=== PATIENT | female | born 1945 | race Caucasian/White ===

== ENCOUNTER 2022-10-16 13:06 | Emergency (ER) | payer MEDICARE, OTHER, SELFPAY ==
[2022-10-16 13:15] VITALS: BP 142/71; PULSE 68; RESP 18; TEMP 36.1; O2SAT 95; BMI 33.6
[2022-10-16 13:46] LABS: Basophils Absolute Auto 0.1 10^3/uL (0.0-0.1); Basophils Percent Auto 0.8 % (0.2-2.0); Eosinophils Absolute Auto 0.1 10^3/uL (0.0-0.7); Eosinophils Percent Auto 1.6 % (0.9-7.0); Hematocrit 36.1 % (36.0-48.0); Hemoglobin 11.6 g/dL (12.0-16.0); Immature Granulocytes Abs Auto 0.01 10^3/uL (0.00-0.03); Immature Granulocytes Pct Auto 0.2 % (0.0-0.5); Lymphocytes Percent Auto 15.8 % (20.5-60.0); Mean Corpuscular HGB Conc 32.1 g/dL (29.9-35.2); Mean Corpuscular Hemoglobin 29.7 pg (26.7-34.0); Mean Corpuscular Volume 92.3 fL (81.0-99.0); Monocytes Absolute Auto 0.4 10^3/uL (0.3-0.8); Monocytes Percent Auto 7.2 % (1.7-12.0); Neutrophils Absolute Auto 4.5 10^3/uL (1.4-6.5); Neutrophils Percent Auto 74.4 % (43.0-75.0); Platelet Count 233 10^3/uL (150-450); Red Blood Count 3.91 10^6/uL (4.20-5.40); Red Cell Distribution Width 13.8 % (11.0-15.0); White Blood Count 6.1 10^3/uL (4.0-11.0)
[2022-10-16 14:02] LABS: Alanine Aminotransferase 21 U/L (14-59); Albumin Globulin Ratio 0.8; Albumin Level 3.1 g/dL (3.4-5.0); Alkaline Phosphatase 137 U/L (46-116); Anion Gap 10.8; Aspartate Amino Transferase 27 U/L (15-37); BUN Creatinine Ratio 25.4; Bilirubin Total 0.3 mg/dL (0.2-1.0); Calcium 9.6 mg/dL (8.5-10.1); Carbon Dioxide 30.3 mmol/L (21.0-32.0); Chloride 103 mmol/L (98-107); Estimated GFR (African America 45 (>=60); Estimated GFR (Non-African Ame 37 (>=60); Glucose 171 mg/dL (74-106); Potassium 4.1 mmol/L (3.5-5.1); Sodium 140 mmol/L (136-145); Total Protein 7.1 g/dL (6.4-8.2)
--- NOTE | 2022-10-16 14:25 | ED.GENADUL1 ---
HPI - General Adult General Chief complaint: Skin/Abscess/Foreign Body Stated complaint: LOWER EXTREMITY WOUND LEFT LEG BLEEDING Time Seen by Provider: 10/16/22 13:21 Source: patient Mode of arrival: Wheelchair Limitations: no limitations History of Present Illness HPI narrative: The patient was sent to us by her primary care doctor after she was noted to have a bleeding wound after she had a recent debridement of her left leg abscess ,The patient's INR was 2.5 in the office of her primary care doctor and she was sent over for evaluation they applied dressing and she was not complaining of any pains she did not even know she had bleeding The patient right now have no complaints and the bleeding was controlled Related Data Home Medications Medication Instructions Recorded Confirmed warfarin 4 mg tablet 4 mg PO DAILY 10/16/22 10/16/22 Allergies Allergy/AdvReac Type Severity Reaction Status Date / Time No Known Drug Allergies Allergy Verified 10/16/22 13:19 Review of Systems ROS Status of ROS 10 or more systems reviewed and unremarkable except as noted in history and below Exam Narrative Exam Narrative: Nurses notes and vital signs reviewed and patient is not hypoxic. General: Well-appearing and in no apparent distress. Skin: Warm, dry, no pallor noted. No rash. Head: Normocephalic, atraumatic. Neck: Supple, non-tender. Eye: Pupils are equal, round and EOMI. No scleral icterus. Ears, Nose, Mouth, and Throat: TM are clear, no nasal mucosal hypertrophy. Oral mucosa is moist, no posterior oropharynx erythema, uvula is mid-line Cardiovascular: Regular Rate and Rhythm without murmur, gallop or rub. Respiratory: No accessory muscle use or respiratory distress. Lungs are clear to auscultation, no wheezing, rales or rhonchi Chest Wall: no tenderness Back: No midline thoracic or lumbar vertebral tenderness. No CVA tenderness Musculoskeletal: normal ROM, no calf or popliteal tenderness, left lower extremity ulcer , the bleeding controled GI: Abdomen is soft, non-distended. Normal bowel sounds. No masses appreciated. No tenderness to palpation. No rebound, guarding, or rigidity noted. Neurological: A&O x4. No cranial nerve dysfunction observed. No truncal ataxia. Moves all extremities. Sensation intact. Psychiatric: Cooperative and interactive. Normal mood and affect. Constitutional Vital Signs, click to edit/add: Last Vital Signs Temp 97 F L 10/16/22 13:15 Pulse 68 10/16/22 13:15 Resp 18 10/16/22 13:15 BP 142/71 H 10/16/22 13:15 Pulse Ox 95 10/16/22 13:15 O2 Del Method Room Air 10/16/22 13:15 Course Vital Signs Vital signs: Vital Signs Temperature 97 F L 10/16/22 13:15 Pulse Rate 68 10/16/22 13:15 Respiratory Rate 18 10/16/22 13:15 Blood Pressure 142/71 H 10/16/22 13:15 Pulse Oximetry 95 10/16/22 13:15 Oxygen Delivery Method Room Air 10/16/22 13:15 Temperature 97 F L 10/16/22 13:15 Pulse Rate 68 10/16/22 13:15 Respiratory Rate 18 10/16/22 13:15 Blood Pressure 142/71 H 10/16/22 13:15 Pulse Oximetry 95 10/16/22 13:15 Oxygen Delivery Method Room Air 10/16/22 13:15 Medical Decision Making MDM Narrative Medical decision making narrative: pt bleeding was controlled and dressing reapplied hg level is 11 pt is asymptomatic Patient was discharged with monitoring her symptoms The patient is to followup with primary care physician in next 2-3 days or to return to the emergency department should any of the signs or symptoms worsen or new symptoms develop. The patient agrees with the following Diagnosis and Treatment plan and the patient will be discharged home. Lab Data Labs: Lab Results 10/16/22 Range/Units 13:38 WBC 6.1 (4.0-11.0) 10^3/uL RBC 3.91 L (4.20-5.40) 10^6/uL Hgb 11.6 L (12.0-16.0) g/dL Hct 36.1 (36.0-48.0) % MCV 92.3 (81.0-99.0) fL MCH 29.7 (26.7-34.0) pg MCHC 32.1 (29.9-35.2) g/dL RDW 13.8 (11.0-15.0) % Plt Count 233 (150-450) 10^3/uL MPV 11.0 (9.5-13.5) fL Neut % (Auto) 74.4 (43.0-75.0) % Lymph % (Auto) 15.8 L (20.5-60.0) % [place] % (Auto) 7.2 (1.7-12.0) % Eos % (Auto) 1.6 (0.9-7.0) % Baso % (Auto) 0.8 (0.2-2.0) % Neut # (Auto) 4.5 (1.4-6.5) 10^3/uL Lymph # (Auto) 1.0 L (1.2-3.8) 10^3/uL [place] # (Auto) 0.4 (0.3-0.8) 10^3/uL Eos # (Auto) 0.1 (0.0-0.7) 10^3/uL Baso # (Auto) 0.1 (0.0-0.1) 10^3/uL Abs Immat Gran (auto) 0.01 (0.00-0.03) 10^3/uL Imm/Tot Granulo (auto) 0.2 (0.0-0.5) % Sodium 140 (136-145) mmol/L Potassium 4.1 (3.5-5.1) mmol/L Chloride 103 (98-107) mmol/L Carbon Dioxide 30.3 (21.0-32.0) mmol/L Anion Gap 10.8 BUN 35.0 H (7.0-18.0) mg/dL Creatinine 1.38 H (0.55-1.02) mg/dL Est GFR ( Amer) 45 L (>=60) Est GFR (Non-Af Amer) 37 L (>=60) BUN/Creatinine Ratio 25.4 Glucose 171 H (74-106) mg/dL Calcium 9.6 (8.5-10.1) mg/dL Total Bilirubin 0.3 (0.2-1.0) mg/dL AST 27 (15-37) U/L ALT 21 (14-59) U/L Alkaline Phosphatase 137 H (46-116) U/L Total Protein 7.1 (6.4-8.2) g/dL Albumin 3.1 L (3.4-5.0) g/dL Globulin 4.0 g/dL Albumin/Globulin Ratio 0.8 Discharge Plan Discharge Chief Complaint: Skin/Abscess/Foreign Body Clinical Impression: Visit for wound care, Bleeding from wound Patient Disposition: Home, Self-Care Time of Disposition Decision: 14:26 Condition: Good Prescriptions / Home Meds: No Action warfarin 4 mg tablet 4 mg PO DAILY Instructions: Acute Wounds (ED) Stand Alone Forms: Portal Instructions Referrals: MEGAN VALLES [Primary Care Provider] - 1 week Discharge Date/Time: 10/16/22 14:52
--- NOTE | 2022-10-16 14:43 | PC.NURSE ---
pt was at wound clinic to have a hematoma drained. pt states she was bleeding through her bandage and was instructed by her pcp to come to er. Dr. andre redressed pt wound and checked her INR. pt was cleared to be discharged
== END 2022-10-16 14:52 | disposition home or self-care (01) ==
PROVIDERS: Emergency Provider Emergency Medicine; PCP Family Medicine
DX: L76.22 Postprocedural hemorrhage of skin and subcutaneous tissue following other procedure (principal); Z79.01 Long term (current) use of anticoagulants
CPT/HCPCS: 36415; 80053; 85025; 86850; 86900; 86901; 99283

== ENCOUNTER 2022-12-24 20:12 | Emergency (ER) | payer MEDICARE, OTHER, SELFPAY ==
[2022-12-24] VITALS (19 sets, daily range): BP systolic 117–153; BP diastolic 51–89; PULSE 75–86; RESP 11–22; TEMP 36.4; O2SAT 91–95; BMI 37.5
--- NOTE | 2022-12-24 20:20 | XR_ITS ---
The [address] [address] Patient Name: ARTHUR YEN MRN: [id number] date: 1945 Sex: F Assigned Patient Location: ER Current Patient Location: ER Accession/Order Number: [id number] Exam Date: 12/24/2022 21:15 Report Date: 12/24/2022 21:33 At the request of: CARLOS MONAE Procedure: XR chest 1V EXAMINATION: XR chest 1V HISTORY: Weakness COMPARISON: Portable chest 09/15/2020 TECHNIQUE: Portable chest FINDINGS: Moderate left pleural effusion. The lung parenchyma is free of consolidation or infiltrate. No pneumothorax. Status post median sternotomy. The cardiac, mediastinal and hilar contours are normal. The visualized osseous structures exhibit no gross abnormality. XR/XR chest 1V IMPRESSION: Moderate left pleural effusion. Electronically authenticated by: GWENDOLYN WESTFALL Date: 12/24/2022 21:33
--- NOTE | 2022-12-24 20:20 | ECG_ITS ---
The [facility] Test Date: 2022-12-24 Pat Name: ARTHUR YEN Department: Room: - Gender: Female Battery [employer]: : 1945 Requested By: Order Number: [id number] Reading MD: CHAU ARNOLD Measurements Intervals [place] Rate: 75 P: 210 WV: 164 QRS: 256 QRSD: 116 T: 150 QT: 346 QTc: 375 Interpretive Statements 1220 Rapid atrial rhythm 2440 Incomplete right bundle branch block 3234 Anteroseptal myocardial infarction, age undetermined 7100 Abnormal right axis deviation 8102 Low QRS voltage in chest leads 0101 Possible arm leads reversed, check lead requested BAseline artifact present 9150 abnormal ECG No previous ECG available for comparison Electronically Signed On 12-25-2022 7:12:32 EDT by CHAU ARNOLD
--- NOTE | 2022-12-24 20:22 | ED.WEAKNESS1 ---
Documented by User: [email or web address] Pinedo 12/24/22 22:05 HPI - Weakness General Chief complaint: Weakness Stated complaint: general weakness Time Seen by Provider: 12/24/22 20:20 Source: patient Mode of arrival: ambulance Limitations: no limitations History of Present Illness HPI Narrative: patient is a 77-year-old female who presents to the emergency department by ambulance for generalized weakness and hypotension. Patient states she was trying to walk up the stairs outside her home when she felt generally weak and was not able to walk, EMS was called and she was found to have a blood pressure of 70/40. Five hundred mL's of IV fluids were given prior to arrival with significant improvement and she states that this time she is feeling fine. She did not have any syncope, fall or head injury. She denies any dizziness, chest pain, shortness of breath. She has not had any recent illness, upper respiratory symptoms or vomiting. She denies urinary symptoms. She is noted to have bruising of the lower extremities in various stages of healing, she states she has had some falls in the past but has not had any recent falls or injuries. She has a brace to her right lower ankle for Charcot foot. She is on Coumadin daily. Related Data Home Medications Medication Instructions Recorded Confirmed warfarin 4 mg tablet 4 mg PO DAILY 10/16/22 10/16/22 insulin glargine 100 unit/mL (3 1 unit subcut DAILY 12/24/22 12/24/22 mL) subcutaneous pen (Lantus Solostar U-100 Insulin) Allergies Allergy/AdvReac Type Severity Reaction Status Date / Time No Known Drug Allergies Allergy Verified 10/16/22 13:19 Review of Systems ROS Constitutional Denies: fever or chills Cardiovascular Denies: chest pain or palpitations Respiratory Denies: shortness of breath or cough Gastrointestinal Denies: nausea or vomiting Musculoskeletal Denies: back pain, neck pain or extremity pain Integumentary/Breast Denies: rash Neurological Denies: headache Hematologic/Lymphatic Denies: easy bruising Exam Narrative Exam Narrative: Gen.: Awake, alert, in no distress Head: Normocephalic, atraumatic, cataract noted to the left eye ENT: Moist mucous membranes Respiratory: No respiratory distress, lungs clear bilaterally Cardio: Regular rate and rhythm Gastrointestinal: Abdomen is soft, nondistended and nontender to palpation Extremities: Moves extremities equally, healing ecchymosis noted to the bilateral medial thighs with no bony tenderness of the upper or lower extremities. Normal follow up specialist strength in the bilateral hands Psych: Normal mood and affect Neuro: No focal neuro deficit Skin: Warm, dry, intact Constitutional Vital Signs, click to edit/add: Last Vital Signs Temp 97.5 F L 12/24/22 20:16 Pulse 81 12/24/22 23:15 Resp 13 12/24/22 23:15 BP 134/72 12/24/22 23:15 Pulse Ox 93 L 12/24/22 23:15 O2 Del Method Room Air 12/24/22 20:16 Course Vital Signs Vital signs: Vital Signs Temperature 97.5 F L 12/24/22 20:16 Pulse Rate 77 12/24/22 20:16 Respiratory Rate 18 12/24/22 20:16 Blood Pressure 117/51 12/24/22 20:16 Pulse Oximetry 95 12/24/22 20:16 Oxygen Delivery Method Room Air 12/24/22 20:16 Temperature 97.5 F L 12/24/22 20:16 Pulse Rate 81 12/24/22 23:15 Respiratory Rate 13 12/24/22 23:15 Blood Pressure 134/72 12/24/22 23:15 Pulse Oximetry 93 L 12/24/22 23:15 Oxygen Delivery Method Room Air 12/24/22 20:16 MDM - Weakness MDM Narrative Medical decision making narrative: patient treated with gentle IV fluids. Her vital signs have significantly improved and blood pressure is stable in the Emergency Room. On arrival to the Emergency Room after fluid bolus by EMS, patient reports she is feeling much better and has no focal medical complaints in the Emergency Room. Lab studies are unremarkable, patient was stable, chronic anemia and mild elevation of creatinine. Dehydration may be contributing to hypotension, she is otherwise stable. CT of the brain, chest x-ray shows stable and chronic left pleural effusion with no other acute abnormalities of the brain or chest. Troponin is within normal limits. 2200: urine specimen is pending, reevaluation after urine results is also pending in case is turned over to attending physician for disposition. Medical Records Attestation: I reviewed the patient's medical records. Lab Data Attestation: I reviewed the patient's lab results. Labs: Lab Results 12/24/22 12/24/22 12/24/22 Range/Units 20:21 20:27 22:46 WBC 7.5 (4.0-11.0) 10^3/uL RBC 2.91 L (4.20-5.40) 10^6/uL Hgb 8.8 L (12.0-16.0) g/dL Hct 28.8 L (36.0-48.0) % MCV 99.0 (81.0-99.0) fL MCH 30.2 (26.7-34.0) pg MCHC 30.6 (29.9-35.2) g/dL RDW 15.1 H (11.0-15.0) % Plt Count 254 (150-450) 10^3/uL MPV 11.0 (9.5-13.5) fL Neut % (Auto) 80.7 H (43.0-75.0) % Lymph % (Auto) 9.9 L (20.5-60.0) % [place] % (Auto) 7.2 (1.7-12.0) % Eos % (Auto) 1.1 (0.9-7.0) % Baso % (Auto) 0.8 (0.2-2.0) % Neut # (Auto) 6.0 (1.4-6.5) 10^3/uL Lymph # (Auto) 0.7 L (1.2-3.8) 10^3/uL [place] # (Auto) 0.5 (0.3-0.8) 10^3/uL Eos # (Auto) 0.1 (0.0-0.7) 10^3/uL Baso # (Auto) 0.1 (0.0-0.1) 10^3/uL Abs Immat Gran (auto) 0.02 (0.00-0.03) 10^3/uL Imm/Tot Granulo (auto) 0.3 (0.0-0.5) % PT 28.6 H (9.0-11.6) sec INR 2.86 Sodium 142 (136-145) mmol/L Potassium 4.0 (3.5-5.1) mmol/L Chloride 107 (98-107) mmol/L Carbon Dioxide 26.7 (21.0-32.0) mmol/L Anion Gap 12.3 BUN 64.0 H (7.0-18.0) mg/dL Creatinine 1.90 H (0.55-1.02) mg/dL Est GFR ( Amer) 31 L (>=60) Est GFR (Non-Af Amer) 26 L (>=60) BUN/Creatinine Ratio 33.7 Glucose 123 H (74-106) mg/dL Lactate 1.5 (0.4-2.0) mmol/L Calcium 9.0 (8.5-10.1) mg/dL Total Bilirubin 0.5 (0.2-1.0) mg/dL AST 32 (15-37) U/L ALT 24 (14-59) U/L Alkaline Phosphatase 162 H (46-116) U/L Troponin I High Sens 16.7 (4.0-51.3) pg/mL Total Protein 6.7 (6.4-8.2) g/dL Albumin 2.9 L (3.4-5.0) g/dL Globulin 3.8 g/dL Albumin/Globulin Ratio 0.8 TSH 6.832 H (0.358-3.740) uIU/mL Free T4 0.96 (0.76-1.46) ng/dL Free T3 1.76 L (2.18-3.98) pg/mL Urine Color Lt. yellow (YELLOW) Urine Clarity Clear (CLEAR) Urine pH 6.0 (5.0-9.0) Ur Specific [place] 1.010 (1.005-1.025) Urine Protein Negative (NEG/TRACE) mg/dL Urine Glucose (UA) Negative (NEGATIVE) mg/dL Urine Ketones Negative (NEGATIVE) mg/dL Urine Occult Blood Negative (NEGATIVE) Urine Nitrite Negative (NEGATIVE) Urine Bilirubin Negative (NEGATIVE) Urine Urobilinogen 0.2 (0.2-1.0) EU/dL Ur Leukocyte Esterase Trace A (NEGATIVE) Urine RBC 0-2 (0-2) #/HPF Urine WBC 2-5 A (NONE SEEN) #/HPF Ur Squamous Epith Cells Rare (NONE/RARE) #/LPF Urine Crystals None seen (None Seen) #/HPF Urine Bacteria None seen (NONE SEEN) #/HPF Urine Casts None seen (NONE SEEN) #/LPF Urine Mucus None seen (NONE SEEN) Ur Culture Indicated? No Imaging Data Chest x-ray: Attestation: I have reviewed the pertinent imaging results. Radiologist's impression: Procedure: XR chest 1V EXAMINATION: XR chest 1V HISTORY: Weakness COMPARISON: Portable chest 09/15/2020 TECHNIQUE: Portable chest FINDINGS: Moderate left pleural effusion. The lung parenchyma is free of consolidation or infiltrate. No pneumothorax. Status post median sternotomy. The cardiac, mediastinal and hilar contours are normal. The visualized osseous structures exhibit no gross abnormality. IMPRESSION: Moderate left pleural effusion. Electronically authenticated by: GWENDOLYN WESTFALL Date: 12/24/2022 21:33 CT scan - head: Attestation: I have reviewed the pertinent imaging results. ECG Data Attestation: I personally reviewed and interpreted this ECG as follows: Discharge Plan Discharge Chief Complaint: Weakness Clinical Impression: Weakness, Hypotension, Dehydration, mild Patient Disposition: Home, Self-Care Time of Disposition Decision: 23:22 Condition: Good Prescriptions / Home Meds: No Action warfarin 4 mg tablet 4 mg PO DAILY insulin glargine [Lantus Solostar U-100 Insulin] 100 unit/mL (3 mL) insulin pen 1 unit SUBCUT DAILY Instructions: Hypotension (ED), Weakness (ED) Stand Alone Forms: Portal Instructions Referrals: MEGAN VALLES [Primary Care Provider] - 1 week Documented by User: Aliza Rivera MD 12/24/22 23:23 HPI - Weakness General Chief complaint: Weakness Stated complaint: general weakness Time Seen by Provider: 12/24/22 20:20 Related Data Home Medications Medication Instructions Recorded Confirmed warfarin 4 mg tablet 4 mg PO DAILY 10/16/22 10/16/22 insulin glargine 100 unit/mL (3 1 unit subcut DAILY 12/24/22 12/24/22 mL) subcutaneous pen (Lantus Solostar U-100 Insulin) Allergies Allergy/AdvReac Type Severity Reaction Status Date / Time No Known Drug Allergies Allergy Verified 10/16/22 13:19 Exam Constitutional Vital Signs, click to edit/add: Last Vital Signs Temp 97.5 F L 12/24/22 20:16 Pulse 81 12/24/22 23:15 Resp 13 12/24/22 23:15 BP 134/72 12/24/22 23:15 Pulse Ox 93 L 12/24/22 23:15 O2 Del Method Room Air 12/24/22 20:16 Course Vital Signs Vital signs: Vital Signs Temperature 97.5 F L 12/24/22 20:16 Pulse Rate 77 12/24/22 20:16 Respiratory Rate 18 12/24/22 20:16 Blood Pressure 117/51 12/24/22 20:16 Pulse Oximetry 95 12/24/22 20:16 Oxygen Delivery Method Room Air 12/24/22 20:16 Temperature 97.5 F L 12/24/22 20:16 Pulse Rate 81 12/24/22 23:15 Respiratory Rate 13 12/24/22 23:15 Blood Pressure 134/72 12/24/22 23:15 Pulse Oximetry 93 L 12/24/22 23:15 Oxygen Delivery Method Room Air 12/24/22 20:16 MDM - Weakness MDM Narrative Medical decision making narrative: patient treated with gentle IV fluids. Her vital signs have significantly improved and blood pressure is stable in the Emergency Room. On arrival to the Emergency Room after fluid bolus by EMS, patient reports she is feeling much better and has no focal medical complaints in the Emergency Room. Lab studies are unremarkable, patient was stable, chronic anemia and mild elevation of creatinine. Dehydration may be contributing to hypotension, she is otherwise stable. CT of the brain, chest x-ray shows stable and chronic left pleural effusion with no other acute abnormalities of the brain or chest. Troponin is within normal limits. 2200: urine specimen is pending, reevaluation after urine results is also pending in case is turned over to attending physician for disposition. This patient was seen and evaluated in conjunction with the physician industrial hire sales assistant. Please refer to her full H and P. She presents after an episode of generalized weakness after going out to dinner with her . The patient is alert and oriented. She denies any complaints. She was assisted to the bathroom. We did review her labs. She does have anemia and mild elevated creatinine at 1.9. Her troponin is normal. Her states that she does drink a lot of fluids, mostly water. He admits that she may have not been drinking as much recently. She is tolerating clear liquids at this time and receiving IV NS. Her vital signs are stable. The patient would like to be discharged home. Her states she is really at her baseline. Her daughter is waiting in the waiting room and she gets discharged home she will be assisted back into her house by her daughter and . They state that she has approximately 5 stairs to go up and a walker and wheelchair at the top of the stairs. The patient's urine is not infected. She was reevaluated and is alert with normal vital signs and wishes to be discharged home. Lab Data Labs: Lab Results 12/24/22 12/24/22 12/24/22 Range/Units 20:21 20:27 22:46 WBC 7.5 (4.0-11.0) 10^3/uL RBC 2.91 L (4.20-5.40) 10^6/uL Hgb 8.8 L (12.0-16.0) g/dL Hct 28.8 L (36.0-48.0) % MCV 99.0 (81.0-99.0) fL MCH 30.2 (26.7-34.0) pg MCHC 30.6 (29.9-35.2) g/dL RDW 15.1 H (11.0-15.0) % Plt Count 254 (150-450) 10^3/uL MPV 11.0 (9.5-13.5) fL Neut % (Auto) 80.7 H (43.0-75.0) % Lymph % (Auto) 9.9 L (20.5-60.0) % [place] % (Auto) 7.2 (1.7-12.0) % Eos % (Auto) 1.1 (0.9-7.0) % Baso % (Auto) 0.8 (0.2-2.0) % Neut # (Auto) 6.0 (1.4-6.5) 10^3/uL Lymph # (Auto) 0.7 L (1.2-3.8) 10^3/uL [place] # (Auto) 0.5 (0.3-0.8) 10^3/uL Eos # (Auto) 0.1 (0.0-0.7) 10^3/uL Baso # (Auto) 0.1 (0.0-0.1) 10^3/uL Abs Immat Gran (auto) 0.02 (0.00-0.03) 10^3/uL Imm/Tot Granulo (auto) 0.3 (0.0-0.5) % PT 28.6 H (9.0-11.6) sec INR 2.86 Sodium 142 (136-145) mmol/L Potassium 4.0 (3.5-5.1) mmol/L Chloride 107 (98-107) mmol/L Carbon Dioxide 26.7 (21.0-32.0) mmol/L Anion Gap 12.3 BUN 64.0 H (7.0-18.0) mg/dL Creatinine 1.90 H (0.55-1.02) mg/dL Est GFR ( Amer) 31 L (>=60) Est GFR (Non-Af Amer) 26 L (>=60) BUN/Creatinine Ratio 33.7 Glucose 123 H (74-106) mg/dL Lactate 1.5 (0.4-2.0) mmol/L Calcium 9.0 (8.5-10.1) mg/dL Total Bilirubin 0.5 (0.2-1.0) mg/dL AST 32 (15-37) U/L ALT 24 (14-59) U/L Alkaline Phosphatase 162 H (46-116) U/L Troponin I High Sens 16.7 (4.0-51.3) pg/mL Total Protein 6.7 (6.4-8.2) g/dL Albumin 2.9 L (3.4-5.0) g/dL Globulin 3.8 g/dL Albumin/Globulin Ratio 0.8 TSH 6.832 H (0.358-3.740) uIU/mL Free T4 0.96 (0.76-1.46) ng/dL Free T3 1.76 L (2.18-3.98) pg/mL Urine Color Lt. yellow (YELLOW) Urine Clarity Clear (CLEAR) Urine pH 6.0 (5.0-9.0) Ur Specific [place] 1.010 (1.005-1.025) Urine Protein Negative (NEG/TRACE) mg/dL Urine Glucose (UA) Negative (NEGATIVE) mg/dL Urine Ketones Negative (NEGATIVE) mg/dL Urine Occult Blood Negative (NEGATIVE) Urine Nitrite Negative (NEGATIVE) Urine Bilirubin Negative (NEGATIVE) Urine Urobilinogen 0.2 (0.2-1.0) EU/dL Ur Leukocyte Esterase Trace A (NEGATIVE) Urine RBC 0-2 (0-2) #/HPF Urine WBC 2-5 A (NONE SEEN) #/HPF Ur Squamous Epith Cells Rare (NONE/RARE) #/LPF Urine Crystals None seen (None Seen) #/HPF Urine Bacteria None seen (NONE SEEN) #/HPF Urine Casts None seen (NONE SEEN) #/LPF Urine Mucus None seen (NONE SEEN) Ur Culture Indicated? No Discharge Plan Discharge Chief Complaint: Weakness Clinical Impression: Weakness, Hypotension, Dehydration, mild Patient Disposition: Home, Self-Care Time of Disposition Decision: 23:22 Condition: Good Prescriptions / Home Meds: No Action warfarin 4 mg tablet 4 mg PO DAILY insulin glargine [Lantus Solostar U-100 Insulin] 100 unit/mL (3 mL) insulin pen 1 unit SUBCUT DAILY Instructions: Hypotension (ED), Weakness (ED) Stand Alone Forms: Portal Instructions Referrals: MEGAN VALLES [Primary Care Provider] - 1 week
--- NOTE | 2022-12-24 20:23 | CT_ITS ---
The [address] [address] Patient Name: ARTHUR YEN MRN: [id number] date: 1945 Sex: F Assigned Patient Location: ER Current Patient Location: Accession/Order Number: [id number] Exam Date: 12/24/2022 21:15 Report Date: 12/24/2022 21:41 At the request of: CARLOS MONAE Procedure: CT head/brain wo con EXAMINATION: CT head/brain wo con HISTORY: Weakness - TECHNIQUE: CT head without contrast. All CT scans at this facility use dose modulation, iterative reconstruction, and/or weight based dosing when appropriate to reduce radiation dose to as low as reasonably achievable. COMPARISON: None. RESULT: Post-operative change: None. Acute change: No evidence of an acute intracranial process. Hemorrhage: No evidence of acute intracranial hemorrhage. Mass Lesion / Mass Effect: No evidence of an intracranial mass or extraaxial fluid collection. No significant mass effect. Chronic change: Patchy foci of low attenuation coefficient are present within the supratentorial white matter which is a nonspecific finding but likely represents moderate microvascular ischemia. Atherosclerotic calcification of the carotid siphons and vertebrobasilar arteries. Parenchyma: Moderate generalized volume loss. Ventricles: Ventricular enlargement concordant with the degree of parenchymal volume loss. Other: The calvarium, skull base, imaged paranasal sinuses, mastoids, and extracranial soft tissues are unremarkable. Bilateral lens replacements. CT/CT head/brain wo con IMPRESSION: 1. No acute intracranial abnormality; no acute infarct, intracranial hemorrhage or extra-axial collection. 2. Chronic microvascular ischemia and involutional changes. Electronically authenticated by: ELIAS SUAREZ Date: 12/24/2022 21:41
--- NOTE | 2022-12-24 20:30 | PC.NURSE ---
pt brought in by ems. pt got home from running errands and wasn't able to get up the stairs at her home d/t weakness. when ems arrived pt was just requesting lift assist. ems checked pt vitals, bp was 70/40, bs-130's. iv started by ems and normal saline started. pt given 500ml of normal saline by arrival to ED pt states already feeling much better at this time and denies any other symptoms. pt has multiple bruises across body in various stages of healing. pt states that she has fallen a lot lately. pt is on Coumadin and denies head injury. pt bp on arrival is 117/79.
[2022-12-24 20:38] LABS: Basophils Absolute Auto 0.1 10^3/uL (0.0-0.1); Basophils Percent Auto 0.8 % (0.2-2.0); Eosinophils Absolute Auto 0.1 10^3/uL (0.0-0.7); Eosinophils Percent Auto 1.1 % (0.9-7.0); Hematocrit 28.8 % (36.0-48.0); Hemoglobin 8.8 g/dL (12.0-16.0); Immature Granulocytes Abs Auto 0.02 10^3/uL (0.00-0.03); Immature Granulocytes Pct Auto 0.3 % (0.0-0.5); Lymphocytes Absolute Auto 0.7 10^3/uL (1.2-3.8); Lymphocytes Percent Auto 9.9 % (20.5-60.0); Mean Corpuscular HGB Conc 30.6 g/dL (29.9-35.2); Mean Corpuscular Hemoglobin 30.2 pg (26.7-34.0); Monocytes Absolute Auto 0.5 10^3/uL (0.3-0.8); Monocytes Percent Auto 7.2 % (1.7-12.0); Neutrophils Percent Auto 80.7 % (43.0-75.0); Platelet Count 254 10^3/uL (150-450); Red Blood Count 2.91 10^6/uL (4.20-5.40); Red Cell Distribution Width 15.1 % (11.0-15.0); White Blood Count 7.5 10^3/uL (4.0-11.0)
[2022-12-24 20:50] LABS: INR 2.86; Prothrombin Time 28.6 sec (9.0-11.6)
[2022-12-24] MEDS: 0.9 % SODIUM CHLORIDE 1,000 ML 500 ML IV (20:52)
[2022-12-24 20:54] LABS: Alanine Aminotransferase 24 U/L (14-59); Albumin Globulin Ratio 0.8; Albumin Level 2.9 g/dL (3.4-5.0); Alkaline Phosphatase 162 U/L (46-116); Anion Gap 12.3; Aspartate Amino Transferase 32 U/L (15-37); BUN Creatinine Ratio 33.7; Bilirubin Total 0.5 mg/dL (0.2-1.0); Carbon Dioxide 26.7 mmol/L (21.0-32.0); Chloride 107 mmol/L (98-107); Estimated GFR (African America 31 (>=60); Estimated GFR (Non-African Ame 26 (>=60); Globulin 3.8 g/dL; Glucose 123 mg/dL (74-106); Sodium 142 mmol/L (136-145); Total Protein 6.7 g/dL (6.4-8.2)
[2022-12-24 20:56] LABS: Lactate/Lactic Acid 1.5 mmol/L (0.4-2.0)
[2022-12-24 21:03] LABS: Thyroid Stimulating Hormone 6.832 uIU/mL (0.358-3.740); Troponin I High Sensitivity 16.7 pg/mL (4.0-51.3)
[2022-12-24 22:31] LABS: Free T4 0.96 ng/dL (0.76-1.46)
[2022-12-24 22:34] LABS: Free T3 1.76 pg/mL (2.18-3.98)
[2022-12-24 22:59] LABS: Bilirubin Urine NEGATIVE (NEGATIVE); Blood Urine NEGATIVE (NEGATIVE); Clarity Urine CLEAR (CLEAR); Color Urine LT. YELLOW (YELLOW); Glucose Urine UA NEGATIVE (NEGATIVE); Ketones Urine NEGATIVE (NEGATIVE); Leukocyte Esterase Urine TRACE (NEGATIVE); Nitrite Urine NEGATIVE (NEGATIVE); Protein Urine NEGATIVE (NEG/TRACE); Urobilinogen Urine 0.2 EU/dL (0.2-1.0)
[2022-12-24 23:01] LABS: Urine Microscopic Indicated YES
[2022-12-24 23:15] LABS: Bacteria Urine NONE SEEN #/HPF (NONE SEEN); Cast Seen? NONE SEEN #/LPF (NONE SEEN); Crystals Seen? None Seen #/HPF (None Seen); Mucus Urine NONE SEEN (NONE SEEN); RBC Urine 0-2 #/HPF (0-2); Squamous Epithelial Cell Urine RARE #/LPF (NONE/RARE); Urine Culture Indicated NO
== END 2022-12-24 23:46 | disposition home or self-care (01) ==
PROVIDERS: Physician Assistant; Emergency Provider Emergency Medicine; PCP Family Medicine
DX: R53.1 Weakness (principal); E86.0 Dehydration; I95.9 Hypotension, unspecified; A52.16 Charcot's arthropathy (tabetic); Z79.01 Long term (current) use of anticoagulants; Z79.4 Long term (current) use of insulin
CPT/HCPCS: 36415; 70450; 71045; 80053; 81001; 83605; 84439; 84443; 84481; 84484; 85025; 85610; 93005; 99285

== ENCOUNTER 2023-01-07 14:17 | Emergency (ER) | payer MEDICARE, OTHER, SELFPAY ==
[2023-01-07 14:14] VITALS: BP 112/59; PULSE 68; RESP 18; TEMP 36.5; O2SAT 95; BMI 37.5
--- NOTE | 2023-01-07 14:14 | ECG_ITS ---
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1945 Requested By: Order Number: [id number] Reading MD: CHAU ARNOLD Measurements Intervals [place] Rate: 65 P: -17 WI: 156 QRS: 263 QRSD: 120 T: 74 QT: 470 QTc: 482 Interpretive Statements 1100 Sinus rhythm 2420 RSR (QR) in lead V1/V2, consistent with right ventricular conduction delay [address] depression, lateral wall ischemia can't be excluded 7100 Abnormal right axis deviation 9150 abnormal ECG Compared to ECG 12/24/2022 20:23:05 ST (T wave) deviation now present Incomplete right bundle-branch block no longer present Myocardial infarct finding still present Electronically Signed On 01-08-2023 7:02:44 EDT by CHAU ARNOLD
--- NOTE | 2023-01-07 14:15 | ED_ITS ---
HPI - General Adult General Chief complaint: Fall Stated complaint: FALL Time Seen by Provider: 01/07/23 14:20 History of Present Illness HPI narrative: Patient is a 77-year-old female who presents to the Emergency Room for low blood pressure per EMS. EMS was dispatched to the home after the patient had an atraumatic fall, she states that she fell on her bottom. This happens frequently and the patient has been seen for this multiple times in the Emergency Room. She states that she fell on her bottom and was unable to get up, EMS was called for lift assist but noted that the patient was hypotensive. She denies weakness, dizziness, lightheadedness, chest pain, shortness of breath. She states on arrival to the Emergency Room that she feels fine. She does take Coumadin daily, she denies hitting her head and has no pain to the head, neck, back. She is alert and oriented to person, place, time. She has Charcot foot and wears a brace to her right lower extremity which makes it difficult for her to get herself up when she falls. She also has difficulty with her ambulation as a re sult. She denies any peripheral paresthesias. She states she is eating and drinking well at home with no recent illness, vomiting or diarrhea. Related Data Home Medications Medication Instructions Recorded Confirmed warfarin 4 mg tablet 4 mg PO DAILY 10/16/22 10/16/22 insulin glargine 100 unit/mL (3 1 unit subcut DAILY 12/24/22 12/24/22 mL) subcutaneous pen (Lantus Solostar U-100 Insulin) Allergies Allergy/AdvReac Type Severity Reaction Status Date / Time No Known Drug Allergies Allergy Verified 01/07/23 14:19 Review of Systems ROS Constitutional Denies: fever or chills Cardiovascular Denies: chest pain Respiratory Denies: shortness of breath or cough Gastrointestinal Denies: abdominal pain, nausea or vomiting Musculoskeletal Denies: back pain, neck pain, extremity pain or extremity swelling Integumentary/Breast Denies: rash Neurological Denies: headache Hematologic/Lymphatic Reports: easy bruising and easy bleeding PFSH [facility] Social History Smoking status: Never smoker Exam Narrative Exam Narrative: Gen.: Awake, alert, in no distress Head: Normocephalic, atraumatic ENT: Moist mucous membranes, cataract to the left eye. No evidence of head or facial injury, C-spine nontender Respiratory: No respiratory distress, lungs clear bilaterally Cardio: Regular rate and rhythm Gastrointestinal: Abdomen is soft, nondistended and nontender to palpation, hips are nontender and pelvis stable Extremities: Moves extremities equally, no bony tenderness of the lower extremities, hips. No upper extremity injuries noted. Right lower extremity brace at the ankle Psych: Normal mood and affect Neuro: No focal neuro deficit Skin: Warm, dry, intact Constitutional Vital Signs, click to edit/add: Last Vital Signs Temp 97.7 F 01/07/23 14:14 Pulse 66 01/07/23 15:26 Resp 12 01/07/23 15:26 BP 115/61 01/07/23 15:26 Pulse Ox 97 01/07/23 15:26 O2 Del Method Room Air 01/07/23 15:26 Course Vital Signs Vital signs: Vital Signs Temperature 97.7 F 01/07/23 14:14 Pulse Rate 68 01/07/23 14:14 Respiratory Rate 18 01/07/23 14:14 Blood Pressure 112/59 01/07/23 14:14 Pulse Oximetry 95 01/07/23 14:14 Temperature 97.7 F 01/07/23 14:14 Pulse Rate 66 01/07/23 15:26 Respiratory Rate 12 01/07/23 15:26 Blood Pressure 115/61 01/07/23 15:26 Pulse Oximetry 97 01/07/23 15:26 Oxygen Delivery Method Room Air 01/07/23 15:26 Medical Decision Making MDM Narrative Medical decision making narrative: patient was given IV fluids in the Emergency Room, she has no focal medical complaints, no evidence of head injury and denies any areas of injury or pain. Blood pressure improved with IV fluids. 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 she also has stable, chronic anemia. She does not typically ambulate independently and either requires a wheelchair or walker at home to get around. Her and daughter care for her in the home. They're comfortable taking her home, patient is comfortable going home and prefers not to be admitted. She has no complaints of dizziness, syncope. Follow-up with PCP and return to the Emergency Room if symptoms change or worsen. Medical Records Medical records reviewed: Yes I reviewed the patient's medical records Lab Data Lab results reviewed: Yes I reviewed the patient's lab results Labs: Lab Results 01/07/23 01/07/23 Range/Units 14:29 15:15 WBC 10.4 (4.0-11.0) 10^3/uL RBC 2.75 L (4.20-5.40) 10^6/uL Hgb 8.3 L (12.0-16.0) g/dL Hct 27.1 L (36.0-48.0) % MCV 98.5 (81.0-99.0) fL MCH 30.2 (26.7-34.0) pg MCHC 30.6 (29.9-35.2) g/dL RDW 15.7 H (11.0-15.0) % Plt Count 235 (150-450) 10^3/uL MPV 11.4 (9.5-13.5) fL Neut % (Auto) 84.9 H (43.0-75.0) % Lymph % (Auto) 7.4 L (20.5-60.0) % Robertson % (Auto) 6.4 (1.7-12.0) % Eos % (Auto) 0.4 L (0.9-7.0) % Baso % (Auto) 0.6 (0.2-2.0) % Neut # (Auto) 8.9 H (1.4-6.5) 10^3/uL Lymph # (Auto) 0.8 L (1.2-3.8) 10^3/uL Robertson # (Auto) 0.7 (0.3-0.8) 10^3/uL Eos # (Auto) 0.0 (0.0-0.7) 10^3/uL Baso # (Auto) 0.1 (0.0-0.1) 10^3/uL Abs Immat Gran (auto) 0.03 (0.00-0.03) 10^3/uL Imm/Tot Granulo (auto) 0.3 (0.0-0.5) % PT 22.4 H (9.0-11.6) sec INR 2.21 Sodium 139 (136-145) mmol/L Potassium 4.4 (3.5-5.1) mmol/L Chloride 103 (98-107) mmol/L Carbon Dioxide 25.2 (21.0-32.0) mmol/L Anion Gap 15.2 BUN 60.0 H (7.0-18.0) mg/dL Creatinine 2.12 H (0.55-1.02) mg/dL Est GFR ( Amer) 27 L (>=60) Est GFR (Non-Af Amer) 23 L (>=60) BUN/Creatinine Ratio 28.3 Glucose 171 H (74-106) mg/dL Calcium 9.3 (8.5-10.1) mg/dL Total Bilirubin 0.4 (0.2-1.0) mg/dL AST 25 (15-37) U/L ALT 20 (14-59) U/L Alkaline Phosphatase 143 H (46-116) U/L Troponin I High Sens 14.3 (4.0-51.3) pg/mL Total Protein 6.2 L (6.4-8.2) g/dL Albumin 2.8 L (3.4-5.0) g/dL Globulin 3.4 g/dL Albumin/Globulin Ratio 0.8 TSH 2.706 (0.358-3.740) uIU/mL Urine Color Yellow (YELLOW) Urine Clarity Clear (CLEAR) Urine pH 6.0 (5.0-9.0) Ur Specific Anderson 1.010 (1.005-1.025) Urine Protein Negative (NEG/TRACE) mg/dL Urine Glucose (UA) Negative (NEGATIVE) mg/dL Urine Ketones Negative (NEGATIVE) mg/dL Urine Occult Blood Negative (NEGATIVE) Urine Nitrite Negative (NEGATIVE) Urine Bilirubin Negative (NEGATIVE) Urine Urobilinogen 0.2 (0.2-1.0) EU/dL Ur Leukocyte Esterase Negative (NEGATIVE) ECG Data Attestation: I personally reviewed and interpreted this ECG as follows: (normal sinus rhythm at a rate of sixty-five, no acute ST elevation or ectopy. EKG reviewed by attending physician) Discharge Plan Discharge Chief Complaint: Fall Clinical Impression: Dehydration, mild, Hypotension Patient Disposition: Home, Self-Care Time of Disposition Decision: 15:46 Condition: Good Prescriptions / Home Meds: No Action warfarin 4 mg tablet 4 mg PO DAILY insulin glargine [Lantus Solostar U-100 Insulin] 100 unit/mL (3 mL) insulin pen 1 unit SUBCUT DAILY Instructions: Hypotension (ED) Stand Alone Forms: Portal Instructions Referrals: MEGAN VALLES [Primary Care Provider] - 1 week
[2023-01-07 14:21] VITALS: O2SAT 100
[2023-01-07 14:32] VITALS: PULSE 66; RESP 19; O2SAT 99
[2023-01-07 14:34] VITALS: BP 111/58; PULSE 66; RESP 17; O2SAT 98
[2023-01-07 14:42] LABS: Basophils Absolute Auto 0.1 10^3/uL (0.0-0.1); Basophils Percent Auto 0.6 % (0.2-2.0); Eosinophils Percent Auto 0.4 % (0.9-7.0); Hematocrit 27.1 % (36.0-48.0); Hemoglobin 8.3 g/dL (12.0-16.0); Immature Granulocytes Abs Auto 0.03 10^3/uL (0.00-0.03); Immature Granulocytes Pct Auto 0.3 % (0.0-0.5); Lymphocytes Absolute Auto 0.8 10^3/uL (1.2-3.8); Lymphocytes Percent Auto 7.4 % (20.5-60.0); Mean Corpuscular HGB Conc 30.6 g/dL (29.9-35.2); Mean Corpuscular Hemoglobin 30.2 pg (26.7-34.0); Mean Corpuscular Volume 98.5 fL (81.0-99.0); Mean Platelet Volume 11.4 fL (9.5-13.5); Monocytes Absolute Auto 0.7 10^3/uL (0.3-0.8); Monocytes Percent Auto 6.4 % (1.7-12.0); Neutrophils Absolute Auto 8.9 10^3/uL (1.4-6.5); Neutrophils Percent Auto 84.9 % (43.0-75.0); Platelet Count 235 10^3/uL (150-450); Red Blood Count 2.75 10^6/uL (4.20-5.40); Red Cell Distribution Width 15.7 % (11.0-15.0); White Blood Count 10.4 10^3/uL (4.0-11.0)
[2023-01-07 14:51] LABS: INR 2.21; Prothrombin Time 22.4 sec (9.0-11.6)
[2023-01-07 14:55] LABS: Alanine Aminotransferase 20 U/L (14-59); Albumin Globulin Ratio 0.8; Albumin Level 2.8 g/dL (3.4-5.0); Alkaline Phosphatase 143 U/L (46-116); Anion Gap 15.2; Aspartate Amino Transferase 25 U/L (15-37); BUN Creatinine Ratio 28.3; Bilirubin Total 0.4 mg/dL (0.2-1.0); Calcium 9.3 mg/dL (8.5-10.1); Carbon Dioxide 25.2 mmol/L (21.0-32.0); Chloride 103 mmol/L (98-107); Estimated GFR (African America 27 (>=60); Estimated GFR (Non-African Ame 23 (>=60); Globulin 3.4 g/dL; Glucose 171 mg/dL (74-106); Potassium 4.4 mmol/L (3.5-5.1); Sodium 139 mmol/L (136-145); Total Protein 6.2 g/dL (6.4-8.2)
[2023-01-07 15:03] LABS: Thyroid Stimulating Hormone 2.706 uIU/mL (0.358-3.740); Troponin I High Sensitivity 14.3 pg/mL (4.0-51.3)
[2023-01-07 15:24] LABS: Bilirubin Urine NEGATIVE (NEGATIVE); Blood Urine NEGATIVE (NEGATIVE); Clarity Urine CLEAR (CLEAR); Color Urine YELLOW (YELLOW); Glucose Urine UA NEGATIVE (NEGATIVE); Ketones Urine NEGATIVE (NEGATIVE); Leukocyte Esterase Urine NEGATIVE (NEGATIVE); Nitrite Urine NEGATIVE (NEGATIVE); Protein Urine NEGATIVE (NEG/TRACE); Urobilinogen Urine 0.2 EU/dL (0.2-1.0)
[2023-01-07 15:25] LABS: Urine Microscopic Indicated NO
[2023-01-07 15:26] VITALS: BP 115/61; PULSE 66; RESP 12; O2SAT 97
--- NOTE | 2023-01-07 15:28 | PC.NURSE ---
Straight cath urine completed. Multiple bruising inner bilateral legs and right hip. States from previous falls
== END 2023-01-07 16:04 | disposition home or self-care (01) ==
PROVIDERS: Physician Assistant; Emergency Provider Emergency Medicine; PCP Family Medicine
DX: I95.9 Hypotension, unspecified (principal); E86.0 Dehydration; D64.9 Anemia, unspecified; Z91.81 History of falling; E11.610 Type 2 diabetes mellitus with diabetic neuropathic arthropathy; Z79.01 Long term (current) use of anticoagulants; Z79.4 Long term (current) use of insulin
CPT/HCPCS: 36415; 80053; 81003; 84443; 84484; 85025; 85610; 93005; 99285

== ENCOUNTER 2023-01-09 18:20 | Observation (INO) | payer MEDICARE, OTHER, SELFPAY ==
[2023-01-09] VITALS (23 sets, daily range): BP systolic 108–134; BP diastolic 44–89; PULSE 69–78; RESP 13–21; TEMP 36.4–36.9; O2SAT 83–100; BMI 37.5; BMI 33.4
--- NOTE | 2023-01-09 18:27 | ECG_ITS ---
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1945 Requested By: [id number] Order Number: [id number] Reading MD: CHAU ARNOLD Measurements Intervals [place] Rate: 67 P: 113 OR: 174 QRS: 242 QRSD: 138 T: 71 QT: 476 QTc: 491 Interpretive Statements 1100 Sinus rhythm 2330 Nonspecific intraventricular conduction block 5120 Possible right ventricular hypertrophy 0101 Possible arm leads reversed, check lead requested 0102 ARTIFACT PRESENT 9150 abnormal ECG Compared to ECG 01/07/2023 14:32:28 ST (T wave) deviation no longer present Possible ischemia no longer present Right-axis deviation no longer present Electronically Signed On 01-11-2023 18:21:28 EDT by CHAU ARNOLD
--- NOTE | 2023-01-09 18:27 | XR_ITS ---
The [address] [address] Patient Name: ARTHUR YEN MRN: [id number] date: 1945 Sex: F Assigned Patient Location: ED.MAIN Current Patient Location: ER Accession/Order Number: [id number] Exam Date: 01/09/2023 19:08 Report Date: 01/09/2023 19:25 At the request of: MUKUND ORTIZ Procedure: XR chest 1V EXAM: XR chest 1V at 1906 hours HISTORY: chest contusion COMPARISON: 12/24/2022 TECHNIQUE: AP upright portable chest X FINDINGS: The study is limited by shallow inspiration. Opacity is seen at the left lung base, which probably indicates a combination of atelectasis or infiltrate with an effusion. This remains unchanged. A calcified granuloma is seen in the left upper lung. The right lung is clear. The heart is not grossly enlarged and no significant osseous abnormality is identified. XR/XR chest 1V IMPRESSION: Opacity at the left lung base indicates a combination of atelectasis or infiltrate with an effusion. There is no evidence of overt cardiac decompensation. The overall appearance of the chest is unchanged. Electronically authenticated by: CÉSAR LEI Date: 01/09/2023 19:25
[2023-01-09] MEDS: 0.9 % SODIUM CHLORIDE 1,000 ML 1000 ML IV (18:44)
[2023-01-09 18:50] LABS: Basophils Absolute Auto 0.1 10^3/uL (0.0-0.1); Basophils Percent Auto 0.6 % (0.2-2.0); Eosinophils Percent Auto 0.4 % (0.9-7.0); Immature Granulocytes Abs Auto 0.05 10^3/uL (0.00-0.03); Immature Granulocytes Pct Auto 0.5 % (0.0-0.5); Lymphocytes Percent Auto 9.5 % (20.5-60.0); Mean Corpuscular HGB Conc 31.2 g/dL (29.9-35.2); Mean Corpuscular Hemoglobin 30.1 pg (26.7-34.0); Mean Corpuscular Volume 96.5 fL (81.0-99.0); Mean Platelet Volume 11.6 fL (9.5-13.5); Monocytes Absolute Auto 1.1 10^3/uL (0.3-0.8); Monocytes Percent Auto 9.6 % (1.7-12.0); Neutrophils Absolute Auto 8.7 10^3/uL (1.4-6.5); Neutrophils Percent Auto 79.4 % (43.0-75.0); Platelet Count 221 10^3/uL (150-450); Red Blood Count 2.26 10^6/uL (4.20-5.40); Red Cell Distribution Width 15.5 % (11.0-15.0); White Blood Count 10.9 10^3/uL (4.0-11.0)
[2023-01-09 19:00] LABS: Alanine Aminotransferase 14 U/L (14-59); Albumin Globulin Ratio 0.9; Albumin Level 3.2 g/dL (3.4-5.0); Alkaline Phosphatase 137 U/L (46-116); Anion Gap 10.9; Aspartate Amino Transferase 37 U/L (15-37); Bilirubin Total 0.5 mg/dL (0.2-1.0); Carbon Dioxide 25.3 mmol/L (21.0-32.0); Chloride 100 mmol/L (98-107); Estimated GFR (African America 21 (>=60); Estimated GFR (Non-African Ame 17 (>=60); Globulin 3.4 g/dL; Glucose 118 mg/dL (74-106); Potassium 4.2 mmol/L (3.5-5.1); Sodium 132 mmol/L (136-145); Total Protein 6.6 g/dL (6.4-8.2); Troponin I High Sensitivity 21.1 pg/mL (4.0-51.3)
[2023-01-09 19:02] LABS: Hematocrit 21.8 % (36.0-48.0); Hemoglobin 6.8 g/dL (12.0-16.0)
--- NOTE | 2023-01-09 19:07 | ED.DIZZY1 ---
HPI - Dizziness General Chief Complaint: Dizziness Stated Complaint: DIZZINESS Time Seen by Provider: 01/09/23 18:27 Source: patient Mode of arrival: ambulance Limitations: no limitations History of Present Illness HPI Narrative: Patient is a 77-year-old female who presents to the Emergency Room for low blood pressure per EMS. EMS was dispatched to the home for a lift assist. This happens frequently and the patient has been seen for this multiple times in the Emergency Room. She states that was unable to get up, EMS was called for lift assist but noted that the patient was hypotensive. She states she felt tired and dizzy. She does take Coumadin daily, she denies hitting her head and has no pain to the head, neck, back. She is alert and oriented to person, place, time. She has Charcot foot and wears a brace to her right lower extremity which makes it difficult for her to get herself up when she falls. She also has difficulty with her ambulation as a result. She denies any peripheral paresthesias. She states she is eating and drinking well at home with no recent illness, vomiting or diarrhea. She has multiple bruising on her body at all different stages including chest upper and lower extremities and left buttock. She states she's been falling at home for weakness. She doesn't take Coumadin for a mitral valve repair that she had several years ago. Denies any chest pain.. She had her INR drawn earlier today around 3 PM and states it was eighty-three. Patient is legally blind. She denies any dark tarry stools but admits that she cannot see her stools clearly. Related Data Home Medications Medication Instructions Recorded Confirmed warfarin 4 mg tablet 4 mg PO DAILY 10/16/22 01/09/23 aspirin 81 mg tablet,delayed 81 mg PO DAILY 01/09/23 01/09/23 release (Adult Aspirin Regimen) bumetanide 1 mg tablet 1 mg PO BID 01/09/23 01/09/23 ferrous sulfate 325 mg (65 mg 650 mg PO DAILY 01/09/23 01/09/23 iron) tablet (Feosol) gabapentin 100 mg capsule 200 mg PO BID 01/09/23 01/09/23 insulin degludec 100 unit/mL (3 10 unit subcut QPM 01/09/23 01/09/23 mL) subcutaneous pen (Tresiba FlexTouch U-100 insulin) insulin lispro 100 unit/mL 1 sliding scale dose subcut 01/09/23 01/09/23 subcutaneous cartridge (Humalog USEASDIRECTD U-100 Insulin) metoprolol tartrate 25 mg tablet 25 mg PO BID 01/09/23 01/09/23 pantoprazole 40 mg tablet,delayed 40 mg PO DAILY 01/09/23 01/09/23 release sertraline 100 mg tablet 100 mg PO DAILY 01/09/23 01/09/23 simvastatin 40 mg tablet 40 mg PO QPM 01/09/23 01/09/23 warfarin 1 mg tablet 3 mg PO DAILY 01/09/23 01/09/23 Allergies Allergy/AdvReac Type Severity Reaction Status Date / Time No Known Drug Allergies Allergy Verified 01/07/23 14:19 Review of Systems ROS Narrative All Systems are negative except as noted/marked.All systems reviewed and otherwise negative PFSH PFS Medical History (Updated 01/09/23 @ 23:22 by Flavia Jensen) Diabetes ?E11.9 - Type 2 diabetes mellitus without complications (ICD-10) Kidney disease ?N28.9 - Disorder of kidney and ureter, unspecified (ICD-10) Surgical History (Updated 01/09/23 @ 23:22 by Flavia Jensen) Heart valve replaced ?Z95.2 - Presence of prosthetic heart valve (ICD-10) Family History (Updated 01/09/23 @ 23:22 by Flavia Jensen) Mother Family history of diabetes mellitus Father Family history of diabetes mellitus Family history of myocardial infarction Social History (Updated 01/09/23 @ 23:25 by Flavia Jensen) Within the past year, how often did you have a drink containing alcohol: never Within the past year, how often did you have six or more drinks on one occasion: never Score interpretation: A score less than 3 is consistent with normal alcohol consumption. Smoking status: Never smoker Second hand tobacco smoke exposure: No Non-prescribed substance use: denies use Previous occupational history: Known occupational exposures/hazards: No Highest level of school completed/degree received: high school graduate Do you want help with school or training: No Are you now , , , , never or living with a partner: In a typical week, how many times do you talk on the telephone with family, friends, or neighbors: 3 or more times per week How often do you get together with friends or relatives: 3 or more times per week How often do you attend orthodox or pentecostal services: 4 or more times per year Do you belong to any clubs or organizations such as orthodox groups unions, fraternal or athletic groups, or school groups: no Total score: 3 Score interpretation: A score of greater than or equal to 2 indicates the lowest level of social isolation. Little interest or pleasure in doing things: not at all Feeling down, depressed, or hopeless: not at all Feel stressed/tense/nervous/anxious/difficulty sleeping: only a little Due to disability, difficulty making decisions: No Do you think of yourself as: straight/heterosexual Gender Identity: female Exam Narrative Exam Narrative: Nurses note and vital signs reviewed and patient is not hypoxic. General: The patient appears weak and pale Skin: Warm, dry, no pallor noted. Patient has multiple bruising on her body including the chest upper extremities and left buttock Head: Normocephalic, atraumatic Eye: Legally blind, injected sclera noted on the left side which is chronic Ears, Nose, Mouth, and Throat: oral mucosa is moist. Nares patent. Mouth without vesicles. Ear canals patent. Tm's without Erythema Cardiovascular: Regular Rate and Rhythm Respiratory: Patient is in no distress, no accessory muscle use, lungs are clear to auscultation, no wheezing, rales or rhonchi Back: non-tender, no CVA tenderness bilaterally to percussion. GI: Normal bowel sounds, no tenderness to palpation, no masses appreciated. No rebound, guarding, or rigidity noted. Musculoskeletal:She is wearing a chronic brace a right lower extremity for Charcot foot Neurological: A&O x4, normal speech Psychiatric: Cooperative Constitutional Vital Signs, click to edit/add: Last Vital Signs Temp 97.8 F 01/10/23 05:44 Pulse 70 01/10/23 05:44 Resp 16 01/10/23 05:44 BP 120/68 01/10/23 05:44 Pulse Ox 99 01/10/23 05:44 O2 Del Method Nasal Cannula 01/10/23 05:44 O2 Flow Rate 2 01/10/23 05:44 Course Vital Signs Vital signs: Vital Signs Temperature 97.6 F 01/09/23 18:23 Pulse Rate 70 01/09/23 18:23 Respiratory Rate 20 01/09/23 18:23 Blood Pressure 108/52 01/09/23 18:23 Pulse Oximetry 100 01/09/23 18:23 Oxygen Delivery Method Room Air 01/09/23 18:23 Temperature 97.8 F 01/10/23 05:44 Pulse Rate 70 01/10/23 05:44 Respiratory Rate 16 01/10/23 05:44 Blood Pressure 120/68 01/10/23 05:44 Pulse Oximetry 99 01/10/23 05:44 Oxygen Delivery Method Nasal Cannula 01/10/23 05:44 Oxygen Delivery Flow Rate 2 01/10/23 05:44 MDM - Dizziness MDM Narrative Medical decision making narrative: Patient presented to the emergency room by pennie. Upon arrival she was complaining of mild dizziness and hypotension. Patient been seen here previously this week for similar complaints. At that time her hemoglobin and hematocrit were low at 8.8 and 28.8. CBC BMP reviewed today patient's hemoglobin is 6.8 and hematocrit 21.8. Occult blood is negative. Patient does take Coumadin daily and haad her INR checked today which was at three. Examining patient's she's had multiple falls recently has multiple ecchymotic areas on her left buttock chest wall upper extremities. She states she falls frequently at home. She does call [facility] [employer] for assistance getting into her home. Patient has not had a recent colonoscopy. She states she did have a colo guard test last year which was normal. Patient denies any history of receiving blood in the past.She has not had a colonoscopy. CT scan shows a masslike area to the left lower lung base consolidation versus effusion. Patient does not have a white blood cell count denies any fevers chills or cough. Blood cultures have been obtained Rocephin was given prophylactically. Patient will be admitted to the hospital for frequent falls he anemia and left lower lobe consolidation. I spoke to the hospitalist concerning this patient's care. And followed up by Dr. Gamboa. Is hemodynamically stable. She agrees with plan of care. She is alert and oriented. Answers all questions appropriately Differential Diagnosis Differential diagnosis: Likely orthostatic hypotension and other (weakness, falls) Medical Records Attestation: I reviewed the patient's medical records. Lab Data Attestation: I reviewed the patient's lab results. Labs: Lab Results 01/09/23 01/09/23 01/09/23 Range/Units 18:36 18:37 18:40 WBC 10.9 (4.0-11.0) 10^3/uL RBC 2.26 L (4.20-5.40) 10^6/uL Hgb 6.8 L* (12.0-16.0) g/dL Hct 21.8 L* (36.0-48.0) % MCV 96.5 (81.0-99.0) fL MCH 30.1 (26.7-34.0) pg MCHC 31.2 (29.9-35.2) g/dL RDW 15.5 H (11.0-15.0) % Plt Count 221 (150-450) 10^3/uL MPV 11.6 (9.5-13.5) fL Neut % (Auto) 79.4 H (43.0-75.0) % Lymph % (Auto) 9.5 L (20.5-60.0) % [place] % (Auto) 9.6 (1.7-12.0) % Eos % (Auto) 0.4 L (0.9-7.0) % Baso % (Auto) 0.6 (0.2-2.0) % Neut # (Auto) 8.7 H (1.4-6.5) 10^3/uL Lymph # (Auto) 1.0 L (1.2-3.8) 10^3/uL [place] # (Auto) 1.1 H (0.3-0.8) 10^3/uL Eos # (Auto) 0.0 (0.0-0.7) 10^3/uL Baso # (Auto) 0.1 (0.0-0.1) 10^3/uL Abs Immat Gran (auto) 0.05 H (0.00-0.03) 10^3/uL Imm/Tot Granulo (auto) 0.5 (0.0-0.5) % PT 27.9 H (9.0-11.6) sec INR 2.79 Sodium 132 L (136-145) mmol/L Potassium 4.2 (3.5-5.1) mmol/L Chloride 100 (98-107) mmol/L Carbon Dioxide 25.3 (21.0-32.0) mmol/L Anion Gap 10.9 BUN 78.0 H* (7.0-18.0) mg/dL Creatinine 2.69 H (0.55-1.02) mg/dL Est GFR ( Amer) 21 L (>=60) Est GFR (Non-Af Amer) 17 L (>=60) BUN/Creatinine Ratio 29.0 Glucose 118 H (74-106) mg/dL Calcium 9.0 (8.5-10.1) mg/dL Total Bilirubin 0.5 (0.2-1.0) mg/dL AST 37 (15-37) U/L ALT 14 (14-59) U/L Alkaline Phosphatase 137 H (46-116) U/L Troponin I High Sens 21.1 (4.0-51.3) pg/mL Total Protein 6.6 (6.4-8.2) g/dL Albumin 3.2 L (3.4-5.0) g/dL Globulin 3.4 g/dL Albumin/Globulin Ratio 0.9 Stool Occult Blood Blood Type O Positive Antibody Screen Negative Crossmatch See Detail 01/09/23 Range/Units 19:25 WBC (4.0-11.0) 10^3/uL RBC (4.20-5.40) 10^6/uL Hgb (12.0-16.0) g/dL Hct (36.0-48.0) % MCV (81.0-99.0) fL MCH (26.7-34.0) pg MCHC (29.9-35.2) g/dL RDW (11.0-15.0) % Plt Count (150-450) 10^3/uL MPV (9.5-13.5) fL Neut % (Auto) (43.0-75.0) % Lymph % (Auto) (20.5-60.0) % [place] % (Auto) (1.7-12.0) % Eos % (Auto) (0.9-7.0) % Baso % (Auto) (0.2-2.0) % Neut # (Auto) (1.4-6.5) 10^3/uL Lymph # (Auto) (1.2-3.8) 10^3/uL [place] # (Auto) (0.3-0.8) 10^3/uL Eos # (Auto) (0.0-0.7) 10^3/uL Baso # (Auto) (0.0-0.1) 10^3/uL Abs Immat Gran (auto) (0.00-0.03) 10^3/uL Imm/Tot Granulo (auto) (0.0-0.5) % PT (9.0-11.6) sec INR Sodium (136-145) mmol/L Potassium (3.5-5.1) mmol/L Chloride (98-107) mmol/L Carbon Dioxide (21.0-32.0) mmol/L Anion Gap BUN (7.0-18.0) mg/dL Creatinine (0.55-1.02) mg/dL Est GFR ( Amer) (>=60) Est GFR (Non-Af Amer) (>=60) BUN/Creatinine Ratio Glucose (74-106) mg/dL Calcium (8.5-10.1) mg/dL Total Bilirubin (0.2-1.0) mg/dL AST (15-37) U/L ALT (14-59) U/L Alkaline Phosphatase (46-116) U/L Troponin I High Sens (4.0-51.3) pg/mL Total Protein (6.4-8.2) g/dL Albumin (3.4-5.0) g/dL Globulin g/dL Albumin/Globulin Ratio Stool Occult Blood Negative Blood Type Antibody Screen Crossmatch Imaging Data Chest x-ray: Radiologist's impression: MRN: [id number] date: 1945 Sex: F Assigned Patient Location: ED.MAIN Current Patient Location: ER Accession/Order Number: [id number] Exam Date: 01/09/2023 19:08 Report Date: 01/09/2023 19:25 At the request of: MUKUND ORTIZ Procedure: XR chest 1V EXAM: XR chest 1V at 1906 hours HISTORY: chest contusion COMPARISON: 12/24/2022 TECHNIQUE: AP upright portable chest X FINDINGS: The study is limited by shallow inspiration. Opacity is seen at the left lung base, which probably indicates a combination of atelectasis or infiltrate with an effusion. This remains unchanged. A calcified granuloma is seen in the left upper lung. The right lung is clear. The heart is not grossly enlarged and no significant osseous abnormality is identified. IMPRESSION: Opacity at the left lung base indicates a combination of atelectasis or infiltrate with an effusion. There is no evidence of overt cardiac decompensation. The overall appearance of the chest is unchanged. Electronically authenticated by: CÉSAR LEI Date: 01/09/2023 19:25 CT scan - abdomen: Radiologist's impression: MUKUND ORTIZ Procedure: CT abdomen pelvis wo con EXAMINATION: CT Abdomen/Pelvis REPORT DATE: 01/09/2023 8:18 PM EDT INDICATION: Anemia COMPARISON(S): None. TECHNIQUE: Unenhanced axial CT through the abdomen and pelvis was performed. Coronal and sagittal reformats were provided. Individualized dose optimization techniques were used for this CT. FINDINGS: SUPPORT DEVICES: None. LOWER CHEST Masslike consolidation at the left lung base. Small left pleural effusion. ABDOMEN/PELVIS Liver: Normal. Gallbladder/biliary: Cholelithiasis without evidence of acute cholecystitis. No biliary ductal dilation. Pancreas: Normal. Spleen: Normal. Adrenal glands: Normal. Kidneys and ureters: Normal. Bladder: Normal. Reproductive organs: Normal for age. Vessels: Calcific atherosclerosis of the abdominal aorta which is normal caliber. Stomach/bowel: Small hiatal hernia. Small bowel is normal caliber. Appendix is not confidently visualized however the no secondary signs of acute appendicitis. Moderate colonic stool burden. No focal colonic wall thickening. No intra-abdominal free fluid or free air. There is a left periaortic lymph node measuring 11 mm, nonspecific. Musculoskeletal/soft tissues: Soft tissues are within normal limits. Status post median sternotomy. Chronic appearing right-sided rib fractures are noted. Severe degenerative changes of the thoracolumbar spine with fusion at L3-L4 and L4-L5. IMPRESSION: Masslike consolidation at the left lung base with small left pleural effusion may reflect infectious process. Recommend repeat imaging for 8 weeks posttreatment to document resolution. No acute intra-abdominal or pelvic abnormality. Cholelithiasis. Electronically authenticated ECG Data Interpretation: 1830 EKG shows a sinus rhythm with a rate 67 bpm VT interval 174 ms , QRS duration 138 ms Discharge Plan Discharge Chief Complaint: Dizziness Clinical Impression: Consolidation of left lower lobe of lung, Anemia, Weakness, Hypotension Patient Disposition: Admitted As Inpatient Time of Disposition Decision: 20:45 Condition: Fair Discharge Date/Time: 01/09/23 22:16
--- NOTE | 2023-01-09 19:13 | PC.NURSE ---
dizziness at home per pt
--- NOTE | 2023-01-09 19:29 | PC.NURSE ---
Rectal completed per PA. Specimen to lab
[2023-01-09 19:34] LABS: Occult Blood Negative
--- NOTE | 2023-01-09 19:38 | CT_ITS ---
The [address] [address] Patient Name: ARTHUR YEN MRN: [facility]:[id number] date: 1945 Sex: F Assigned Patient Location: ER Current Patient Location: ER Accession/Order Number: [id number] Exam Date: 01/09/2023 19:55 Report Date: 01/09/2023 20:27 At the request of: MUKNUD ORTIZ Procedure: CT abdomen pelvis wo con EXAMINATION: CT Abdomen/Pelvis REPORT DATE: 01/09/2023 8:18 PM EDT INDICATION: Anemia COMPARISON(S): None. TECHNIQUE: Unenhanced axial CT through the abdomen and pelvis was performed. Coronal and sagittal reformats were provided. Individualized dose optimization techniques were used for this CT. FINDINGS: SUPPORT DEVICES: None. LOWER CHEST Masslike consolidation at the left lung base. Small left pleural effusion. ABDOMEN/PELVIS Liver: Normal. Gallbladder/biliary: Cholelithiasis without evidence of acute cholecystitis. No biliary ductal dilation. Pancreas: Normal. Spleen: Normal. Adrenal glands: Normal. Kidneys and ureters: Normal. Bladder: Normal. Reproductive organs: Normal for age. Vessels: Calcific atherosclerosis of the abdominal aorta which is normal caliber. Stomach/bowel: Small hiatal hernia. Small bowel is normal caliber. Appendix is not confidently visualized however the no secondary signs of acute appendicitis. Moderate colonic stool burden. No focal colonic wall thickening. No intra-abdominal free fluid or free air. There is a left periaortic lymph node measuring 11 mm, nonspecific. Musculoskeletal/soft tissues: Soft tissues are within normal limits. Status post median sternotomy. Chronic appearing right-sided rib fractures are noted. Severe degenerative changes of the thoracolumbar spine with fusion at L3-L4 and L4-L5. CT/CT abdomen pelvis wo con IMPRESSION: Masslike consolidation at the left lung base with small left pleural effusion may reflect infectious process. Recommend repeat imaging for 8 weeks posttreatment to document resolution. No acute intra-abdominal or pelvic abnormality. Cholelithiasis. Electronically authenticated by: ANAIS JIMENEZ Date: 01/09/2023 20:27
[2023-01-09] MEDS: DIPHENHYDRAMINE HCL 50 MG/ML (1ML) VIAL 25 MG IV (19:51)
[2023-01-09 21:19] LABS: INR 2.79; Prothrombin Time 27.9 sec (9.0-11.6)
[2023-01-09] MEDS: CEFTRIAXONE 1,000 MG in 0.9 % SODIUM CHLORIDE 50 ML 100 MG IV (21:21)
--- NOTE | 2023-01-09 23:40 | W.PM.TELEPN ---
Progress Note: Subjective Subjective Interval history: CC: Frequent falls, weakness HPI: This is a very pleasant 77 years old female who presents with above complaints. Patient admitted from home. Apparently she has been falling a lot. She is covered by bruises. Patient is chronically anticoagulated with Coumadin for mitral valve replacement with mechanical valve. Patient found to be anemic with hemoglobin 6.8 (previous ER visit hemoglobin was 9.6). Patient denies any active bleeding. Patient denies any melanotic stools, emesis or hematochezia. Trauma work-up was negative. 2 units of red blood cells ordered in the emergency room. Admitted for further evaluation and work-up Exam Narrative Exam Narrative: ROS: 1.General: no fever, chills, not in distress 2.HEENT: no RIVER, no blurry vision, no swallow problems, no nasal congestion, no sore throat 3.Pulmonary: no cough, SOB, wheezes 4.CVS: no CP, no palpitations, no CHASE, no SOB, no intermittent claudication 5.GI: no nausea, vomiting or diarrhea, no abdominal pain, no constipation, no hematemesis or hematochezia 6.: no renal colic, no hematuria, urinary frequency or urgency 7.Extremities: no edema 8.Neurological: no dizziness, vertigo, double or blurry vision, no no focal weakness, no paresthesia, no swallow or speech problems 9.Musculosceletal: no joint pains, no joint swelling, no back pain 10.Dermatological: no skin rashes, no lesions, no pruritus 11.Hematological: no bleeding, no hx/o clots 12.Endocrinological: no heat/cold intolerance, no hx/o diabetes 13.Psychiatric: no suicidal or homicidal thoughts Physical Exam: Not in distress, pleasant, lucid, cooperative, Head - atraumatic, eyes - pupils equal, round, reactive to light, extra ocular movement intact, MMM Neck - supple, thyroid not enlarged, LN not palpated Lungs - clear to auscultation, no dullness on percussion CVS - heart sounds S1, S2 mechanical click Gastrointestinal?abdomen is soft, non-tender, non-distended, no organomegaly, positive bowel sounds Extremities no clubbing, cyanosis or edema Neurological?cranial nerve II?XII grossly intact, no meningeal signs, no cerebellar signs, no sensory deficit Musculoskeletal - DJD related changes in multiple joints, no effusions, ROM preserved Dermatological - the skin dry, warm,, multiple bruises Psychiatric?patient is AAO X3, patient has normal affect Constitutional Vital Signs, click to edit/add: Last Vital Signs Temp 97.6 F 01/09/23 22:33 Pulse 72 01/09/23 22:33 Resp 16 01/09/23 22:33 BP 128/61 01/09/23 22:33 Pulse Ox 99 01/09/23 22:33 O2 Del Method Nasal Cannula 01/09/23 22:33 O2 Flow Rate 2 01/09/23 22:33 Progress Note: Objective Labs Labs: Short CBC 01/09/23 Range/Units 18:37 WBC 10.9 (4.0-11.0) 10^3/uL Hgb 6.8 L* (12.0-16.0) g/dL Hct 21.8 L* (36.0-48.0) % Plt Count 221 (150-450) 10^3/uL BMP 01/09/23 18:37 Sodium 132 L Potassium 4.2 Chloride 100 Carbon Dioxide 25.3 BUN 78.0 H* Creatinine 2.69 H Glucose 118 H Calcium 9.0 Liver Function 01/09/23 Range/Units 18:37 Total Bilirubin 0.5 (0.2-1.0) mg/dL AST 37 (15-37) U/L ALT 14 (14-59) U/L Alkaline Phosphatase 137 H (46-116) U/L Albumin 3.2 L (3.4-5.0) g/dL Progress Note: A&P Assessment and Plan (1) Hypotension: Assessment and Plan: Patient found to be hypotensive by EMS on arrival. Currently remains hemodynamically stable. Dehydration? Anemia related? Recheck after 2 units of red blood cells Orthostatic vital signs ordered (2) Anemia: Assessment and Plan: Reason unclear. No GI losses. Stool was negative for occult blood. Possibly related to multiple bruises or chronic kidney disease Recheck after 2 units of red blood cells transfused (3) Diabetes: Assessment and Plan: Continue with ADA diet, Accu-Cheks and coverage with sliding scale of insulin (4) Heart valve replaced: Assessment and Plan: Echocardiogram ordered to evaluate for valve anatomy and function Continue with Coumadin. Goal INR 2.5?3.5 (5) Kidney disease: Assessment and Plan: Chronic kidney disease. Patient seems to be somewhat dehydrated. Patient is on Bumex. I am not going to discontinue that since she is receiving 2 units of red blood cells now. Monitor for orthostatic vital signs changes Monitor BUNs/creatinine while receiving IV volume with blood Avoid use of nephrotoxic medications Plan For frequent falls which probably related to symptomatic anemia?ordered PT/OT evaluation, orthostatic vital signs, carotid ultrasound and echocardiogram END: As the provider for the telehealth service, I attest that I introduced myself to the patient, provided my credentials, disclosed by location and determined that based on a review of the patient's chart and discussion with members of the patient's treatment team, telemedicine via real-time, 2 way, and interactive audio and video platform is an appropriate and effective means of providing the service. ?The patient and I mutually agree this visit is appropriate for telemedicine. ?[place] ?The encounter took approximately 35 minutes. ?The nurse was present during the entire time and I was able to move the stethoscope in appropriate directions. ?The patient was evaluated at the Hospital ? Portions of this note may be dictated using [employer] voice recognition software. Variances in spelling and vocabulary are possible and unintentional. Not all errors may be caught and/or corrected. Please notify the author if any discrepancies are noted and/or if the meaning of any statement is unclear.? ? Patient verbally consented for treatment via video visit with patient currently located at the [facility] and provider located in [place]. Telemedicine Attestation Telemedicine Attestation I conducted this encounter from [[place]] via secure live, [id number] video conference with the patient, located at [facility] with [symptomatic anemia]. Prior to the interview, the risks and benefits of telemedicine were discussed with the patient and verbal consent was obtained.
[2023-01-10] VITALS (10 sets, daily range): BP systolic 120–138; BP diastolic 61–78; PULSE 68–73; RESP 16; TEMP 36.4–36.6; O2SAT 96–99
[2023-01-10 00:18] LABS: Glucometer 106 mg/dL (74-106)
[2023-01-10] MEDS: 0.9 % SODIUM CHLORIDE 1,000 ML 75 ML IV (05:47)
[2023-01-10 06:30] LABS: Basophils Absolute Auto 0.1 10^3/uL (0.0-0.1); Basophils Percent Auto 0.9 % (0.2-2.0); Eosinophils Percent Auto 0.3 % (0.9-7.0); Hematocrit 30.9 % (36.0-48.0); Hemoglobin 10.1 g/dL (12.0-16.0); Immature Granulocytes Abs Auto 0.02 10^3/uL (0.00-0.03); Immature Granulocytes Pct Auto 0.3 % (0.0-0.5); Lymphocytes Absolute Auto 0.9 10^3/uL (1.2-3.8); Mean Corpuscular HGB Conc 32.7 g/dL (29.9-35.2); Mean Corpuscular Hemoglobin 31.2 pg (26.7-34.0); Mean Corpuscular Volume 95.4 fL (81.0-99.0); Mean Platelet Volume 11.5 fL (9.5-13.5); Monocytes Absolute Auto 0.8 10^3/uL (0.3-0.8); Neutrophils Absolute Auto 4.8 10^3/uL (1.4-6.5); Neutrophils Percent Auto 72.5 % (43.0-75.0); Platelet Count 160 10^3/uL (150-450); Red Blood Count 3.24 10^6/uL (4.20-5.40); Red Cell Distribution Width 15.2 % (11.0-15.0); White Blood Count 6.6 10^3/uL (4.0-11.0)
[2023-01-10 06:50] LABS: Alanine Aminotransferase 22 U/L (14-59); Albumin Globulin Ratio 0.8; Albumin Level 2.7 g/dL (3.4-5.0); Alkaline Phosphatase 118 U/L (46-116); Anion Gap 11.5; Aspartate Amino Transferase 35 U/L (15-37); BUN Creatinine Ratio 31.2; Bilirubin Total 0.6 mg/dL (0.2-1.0); Calcium 8.6 mg/dL (8.5-10.1); Carbon Dioxide 24.4 mmol/L (21.0-32.0); Chloride 104 mmol/L (98-107); Estimated GFR (African America 27 (>=60); Estimated GFR (Non-African Ame 22 (>=60); Globulin 3.3 g/dL; Glucose 89 mg/dL (74-106); Potassium 3.9 mmol/L (3.5-5.1); Sodium 136 mmol/L (136-145)
--- NOTE | 2023-01-10 07:00 | US_ITS ---
[address] [address] Patient Name: ARTHUR YEN MRN: [facility]:[id number] date: 1945 Sex: F Assigned Patient Location: MS Current Patient Location: MS Accession/Order Number: [id number] Exam Date: 01/10/2023 07:45 Report Date: 01/11/2023 01:51 At the request of: CHIDI Landaverde SISTER Procedure: US carotid duplex BI EXAMINATION: US carotid duplex BI HISTORY: syncope COMPARISON: No relevant comparison available. TECHNIQUE: Duplex Doppler ultrasound analysis of carotid and vertebral arteries. . Bilateral carotid arterial duplex examination was performed using B-mode, color flow and spectral analysis. Carotid stenosis is reported according to validated velocity parameters, similar to NASCET criteria. FINDINGS: RIGHT CAROTID ARTERY: Moderate atherosclerotic plaque within bulb resulting in 62% area reduction. RIGHT VERTEBRAL: Antegrade flow. Subclavian: PSV: 64.7 cm/s EDV: 6.7 cm/s CCA: Prox: PSV: 58.1 cm/s EDV: 9.8 cm/s Mid: PSV: 55.9 cm/s EDV: 9.8 cm/s Distal: PSV: 53.3 cm/s EDV: 8.5 cm/s BULB: PSV: 49.7 cm/s EDV: 8.5 cm/s ICA: Prox: PSV: 44.0 cm/s EDV: 10.6 cm/s Mid: PSV: 59.4 cm/s EDV: 12.8 cm/s Distal: PSV: 85.3 cm/s EDV: 12.8 cm/s ECA: PSV: 64.6 cm/s EDV: 5.3 cm/s VERTEBRAL: PSV: 54.8 cm/s EDV: 8.7 cm/s ICA/CCA ratio: PSV: 1.6 EDV: 1.5 LEFT CAROTID ARTERY: Mild atherosclerotic plaque without significant stenosis. Incidental 1.4 cm colloid cyst seen within left lobe of thyroid. LEFT VERTEBRAL: Antegrade flow. Subclavian: PSV: 103.2 cm/s EDV: 8.2 cm/s CCA: Prox: PSV: 62.7 cm/s EDV: 7.8 cm/s Mid: PSV: 53.1 cm/s EDV: 6.9 cm/s Distal: PSV: 57.5 cm/s EDV: 8.6 cm/s BULB: PSV: 36.6 cm/s EDV: 9.5 cm/s ICA: Prox: PSV: 49.6 cm/s EDV: 9.5 cm/s Mid: PSV: 65.1 cm/s EDV: 11.9 cm/s Distal: PSV: 91.4 cm/s EDV: 20.4 cm/s ECA: PSV: 66.2 cm/s EDV: 7.9 cm/s VERTEBRAL: PSV: 60.1 cm/s EDV: 12.1 cm/s ICA/CCA ratio: PSV: 1.6 EDV: 2.4 US/US carotid duplex BI IMPRESSION: 1. 0-49% flow stenosis within the right and left carotid arteries. 2. Moderate right, mild left atherosclerotic plaque within bulb/proximal ICA. Electronically authenticated by: AGNES CURTIS Date: 01/11/2023 01:51
[2023-01-10] MEDS: OMEPRAZOLE 40 MG CAPSULE.DR PO (08:54)
[2023-01-10] MEDS: BUMETANIDE 1 MG TABLET PO (08:54)
[2023-01-10] MEDS: FERROUS SULFATE 325 MG TABLET 650 MG PO (08:54)
[2023-01-10] MEDS: GABAPENTIN 100 MG CAPSULE 200 MG PO (08:54)
[2023-01-10] MEDS: SERTRALINE HCL 100 MG TABLET PO (08:54)
[2023-01-10] MEDS: METOPROLOL TARTRATE 25 MG TABLET PO (08:54)
[2023-01-10] MEDS: ASPIRIN 81 MG TABLET.DR PO (08:54)
[2023-01-10 11:23] LABS: Glucometer 172 mg/dL (74-106)
--- NOTE | 2023-01-10 14:20 | PM.HP ---
H&P: HPI History of Present Illness Chief complaint: Fatigue, lightheadedness Narrative: 77 y/o female to ER with fatigue and lightheadedness. Developed increased weakness and hard to get up. EMS called and found hypotension. To ER and hgb 6.8. On coumadin due to mitral valve repair. Stool negative for occult blood. Admitted and given 2 units PRBC. Started PT/OT. Resumed home medication. Feels better this am. Fatigue improved and not lightheaded. BP stable. Review of Systems ROS Constitutional Denies: fever, chills or night sweats Cardiovascular Reports: lightheadedness; Denies: chest pain, palpitations or edema Respiratory Denies: shortness of breath, cough or wheezing Gastrointestinal Denies: abdominal pain, nausea, vomiting or diarrhea Genitourinary Denies: painful urination PFSH [facility] Medical History (Updated 01/10/23 @ 10:09 by Cornell Cifuentes MD) Anemia ?D64.9 - Anemia, unspecified (ICD-10) Bleeding from wound ?T14.8XXA - Other injury of unspecified body region, initial encounter (ICD-10) Diabetes ?E11.9 - Type 2 diabetes mellitus without complications (ICD-10) Kidney disease ?N28.9 - Disorder of kidney and ureter, unspecified (ICD-10) Visit for wound care Surgical History (Updated 01/10/23 @ 10:09 by Cornell Cifuentes MD) Heart valve replaced ?Z95.2 - Presence of prosthetic heart valve (ICD-10) Family History (Updated 01/09/23 @ 23:22 by Flavia Jensen) Mother Family history of diabetes mellitus Father Family history of diabetes mellitus Family history of myocardial infarction Social History (Updated 01/09/23 @ 23:25 by Flavia Jensen) Within the past year, how often did you have a drink containing alcohol: never Within the past year, how often did you have six or more drinks on one occasion: never Score interpretation: A score less than 3 is consistent with normal alcohol consumption. 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 Known occupational exposures/hazards: No Highest level of school completed/degree received: high school graduate Do you want help with school or training: No Are you now , , , , never or living with a partner: In a typical week, how many times do you talk on the telephone with family, friends, or neighbors: 3 or more times per week How often do you get together with friends or relatives: 3 or more times per week How often do you attend yarsani or mu-ism services: 4 or more times per year Do you belong to any clubs or organizations such as yarsani groups unions, fraternal or athletic groups, or school groups: no Total score: 3 Score interpretation: A score of greater than or equal to 2 indicates the lowest level of social isolation. Little interest or pleasure in doing things: not at all Feeling down, depressed, or hopeless: not at all Feel stressed/tense/nervous/anxious/difficulty sleeping: only a little Due to disability, difficulty making decisions: No Do you think of yourself as: straight/heterosexual Gender Identity: female Meds Home Medications and Allergies Home Medications Medication Instructions Recorded Confirmed Type warfarin 4 mg tablet 4 mg PO DAILY 10/16/22 01/09/23 History aspirin 81 mg tablet,delayed 81 mg PO DAILY 01/09/23 01/09/23 History release (Adult Aspirin Regimen) bumetanide 1 mg tablet 1 mg PO BID 01/09/23 01/09/23 History ferrous sulfate 325 mg (65 mg 650 mg PO DAILY 01/09/23 01/09/23 History iron) tablet (Feosol) gabapentin 100 mg capsule 200 mg PO BID 01/09/23 01/09/23 History insulin degludec 100 unit/mL (3 10 unit subcut QPM 01/09/23 01/09/23 History mL) subcutaneous pen (Tresiba FlexTouch U-100 insulin) insulin lispro 100 unit/mL 1 sliding scale dose subcut 01/09/23 01/09/23 History subcutaneous cartridge (Humalog USEASDIRECTD U-100 Insulin) metoprolol tartrate 25 mg tablet 25 mg PO BID 01/09/23 01/09/23 History pantoprazole 40 mg tablet,delayed 40 mg PO DAILY 01/09/23 01/09/23 History release sertraline 100 mg tablet 100 mg PO DAILY 01/09/23 01/09/23 History simvastatin 40 mg tablet 40 mg PO QPM 01/09/23 01/09/23 History warfarin 1 mg tablet 3 mg PO DAILY 01/09/23 01/09/23 History Allergies Allergy/AdvReac Type Severity Reaction Status Date / Time No Known Drug Allergies Allergy Verified 01/07/23 14:19 Exam Constitutional Vital Signs, click to edit/add: Last Vital Signs Temp 97.8 F 01/10/23 05:44 Pulse 73 01/10/23 08:53 Resp 16 01/10/23 05:44 BP 129/71 01/10/23 08:53 Pulse Ox 97 01/10/23 12:06 O2 Del Method Nasal Cannula 01/10/23 12:06 O2 Flow Rate 2 01/10/23 05:44 Documenting provider has reviewed patient's vital signs: yes Common normals: no apparent distress, oriented x3 and alert HENMT Common normals: normocephalic Eye Common normals: PERRL and EOMs intact bilaterally Respiratory Common normals: normal respiratory effort and clear to auscultation bilaterally Cardio Common normals: regular rate, regular rhythm, no gallops, no murmurs and no rub GI Common normals: Normal to inspection, nondistended, normoactive bowel sounds present and non-tender Extremity Common normals: no pedal edema Results Labs Labs: Short CBC 01/09/23 01/10/23 Range/Units 18:37 06:23 WBC 10.9 6.6 (4.0-11.0) 10^3/uL Hgb 6.8 L* 10.1 L (12.0-16.0) g/dL Hct 21.8 L* 30.9 L (36.0-48.0) % Plt Count 221 160 (150-450) 10^3/uL BMP 01/09/23 01/10/23 18:37 06:23 Sodium 132 L 136 Potassium 4.2 3.9 Chloride 100 104 Carbon Dioxide 25.3 24.4 BUN 78.0 H* 67.0 H Creatinine 2.69 H 2.15 H Glucose 118 H 89 Calcium 9.0 8.6 Liver Function 01/09/23 01/10/23 Range/Units 18:37 06:23 Total Bilirubin 0.5 0.6 (0.2-1.0) mg/dL AST 37 35 (15-37) U/L ALT 14 22 (14-59) U/L Alkaline Phosphatase 137 H 118 H (46-116) U/L Albumin 3.2 L 2.7 L (3.4-5.0) g/dL Assessment and Plan Assessment and Plan (1) Anemia in chronic kidney disease: (2) Weakness: (3) Hypotension: (4) Dehydration, mild: (5) Type 2 diabetes mellitus with hyperglycemia: (6) CKD (chronic kidney disease) stage 4, GFR 15-29 ml/min: (7) Consolidation of left lower lobe of lung: (8) Charcot foot due to diabetes mellitus: (9) History of mitral valve repair: Plan Hgb improved to 10.1 after 2 units. Symptoms improved and normal BP. Continued weakness but chronic. Seen by PT and recommended home health vs SNF. Patient reports uses walker and wheelchair at home. Was scheduled to start home health. Discharge home in stable condition. Continue home medication without change.
--- NOTE | 2023-01-13 14:49 | CM.DCFOLLOWU ---
Person spoke with: patient's How are you feeling? doing well How is your pain? no pain, blood pressure a little low, but overall doing well Did you understand your discharge instructions? yes Do you have any questions about your discharge instructions? no Were you given any prescriptions at discharge? no Were you able to get your prescriptions filled? N/A Do you understand how to take your medications as ordered? yes Do you have any questions about your follow up appointment and do you plan to keep your follow up appointment? no questions, follow up 01/[address] cervantes went well Is there anything else that you would like to discuss? no Questions/Comments/Concerns/Other:
== END 2023-01-10 14:13 | disposition home or self-care (01) ==
LOC: ER 21:06 → MS 23:32
PROVIDERS: Internal Medicine; Physician Assistant; Admitting Provider Family Medicine; Emergency Provider Emergency Medicine; PCP Family Medicine; Visit Provider Family Medicine
DX: E11.22 Type 2 diabetes mellitus with diabetic chronic kidney disease (principal); N18.4 Chronic kidney disease, stage 4 (severe); D63.1 Anemia in chronic kidney disease; J18.1 Lobar pneumonia, unspecified organism; R53.1 Weakness; I95.9 Hypotension, unspecified; E86.0 Dehydration; E11.65 Type 2 diabetes mellitus with hyperglycemia; E11.610 Type 2 diabetes mellitus with diabetic neuropathic arthropathy; Z79.01 Long term (current) use of anticoagulants; Z95.2 Presence of prosthetic heart valve; Z79.82 Long term (current) use of aspirin; Z79.899 Other long term (current) drug therapy; Z79.4 Long term (current) use of insulin; Z91.81 History of falling; H54.8 Legal blindness, as defined in USA; R55 Syncope and collapse; D64.9 Anemia, unspecified
CPT/HCPCS: 36415; 36430; 71045; 74176; 80053; 81001; 82948; 84484; 85025; 85610; 86850; 86900; 86901; 87040; 93005; 93880; 94761; 96361; 96365; 96375; 97161; 99285; G0328; G0378; P9016; Q3014

== ENCOUNTER 2023-02-16 14:30 | Inpatient (IN) | payer MEDICARE, OTHER, SELFPAY ==
[2023-02-16] VITALS (25 sets, daily range): BP systolic 117–145; BP diastolic 55–78; PULSE 55–87; RESP 8–24; TEMP 36.4–36.7; O2SAT 94–98; BMI 37.5; BMI 34.7
--- NOTE | 2023-02-16 14:35 | XR_ITS ---
The [address] [address] Patient Name: ARTHUR YEN MRN: [id number] date: 1945 Sex: F Assigned Patient Location: ER Current Patient Location: ER Accession/Order Number: [id number] Exam Date: 02/16/2023 15:45 Report Date: 02/16/2023 16:42 At the request of: CARLOS MONAE Procedure: XR chest 1V EXAM: XR chest 1V HISTORY: Fall, weakness COMPARISON: 01/09/2023 TECHNIQUE: Single frontal view of the chest. FINDINGS: Tubes/lines/devices: Abandoned epicardial pacing leads. Mitral valve prosthesis. Lungs: Adequate inflation. Retrocardiac consolidation.. Pleura: No pneumothorax. Small left effusion, unchanged. Possible layering small right pleural effusion. Heart and mediastinum: No enlargement of the cardiomediastinal silhouette. Median sternotomy. Aortic atherosclerosis. Bones/soft tissues: No acute osseous findings. Unremarkable soft tissues. Abdomen: Unremarkable. XR/XR chest 1V IMPRESSION: Small left, possible small right pleural effusion and likely adjacent atelectasis. Electronically authenticated by: ROMÁN PLUNKETT Date: 02/16/2023 16:42
--- NOTE | 2023-02-16 14:35 | ECG_ITS ---
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
--- NOTE | 2023-02-16 14:40 | XR_ITS ---
The [address] [address] Patient Name: ARTHUR YEN MRN: [facility]:[id number] date: 1945 Sex: F Assigned Patient Location: ER Current Patient Location: ER Accession/Order Number: [id number] Exam Date: 02/16/2023 15:45 Report Date: 02/16/2023 16:44 At the request of: CARLOS MONAE Procedure: XR pelvis 1-2V EXAM: XR pelvis 1-2V HISTORY: Fall, weakness COMPARISON: None. TECHNIQUE: Single view of the pelvis. FINDINGS: No evidence of proximal femur fracture or hip dislocation. No pelvic fracture or diastases. Severe lower lumbar spine degenerative changes. Hip joint spaces are maintained. Vascular calcifications. Pelvic phlebolith. Rectal stool burden. XR/XR pelvis 1-2V IMPRESSION: No acute findings. Electronically authenticated by: CHANDLER BANSAL Date: 02/16/2023 16:44
--- NOTE | 2023-02-16 14:40 | CT_ITS ---
The [address] [address] Patient Name: ARTHUR YEN MRN: [id number] date: 1945 Sex: F Assigned Patient Location: ER Current Patient Location: ER Accession/Order Number: [id number] Exam Date: 02/16/2023 15:35 Report Date: 02/16/2023 16:33 At the request of: CARLOS MONAE Procedure: CT facial bones wo con EXAM: CT facial bones wo con HISTORY: Fall, weakness COMPARISON: None. TECHNIQUE: Axial CT images were obtained of the facial bones without intravenous contrast. Multiplanar reconstructions were performed. FINDINGS: No acute facial bone fractures. The paranasal sinuses and mastoid air cells are well aerated. There is a small mucous retention cyst or polyp in the right maxillary sinus. The soft tissues are unremarkable. CT/CT facial bones wo con IMPRESSION: No acute facial fracture. Electronically authenticated by: VELMA EWING Date: 02/16/2023 16:33
--- NOTE | 2023-02-16 14:40 | CT_ITS ---
The [address] [address] Patient Name: ARTHUR YEN MRN: [facility]:[id number] date: 1945 Sex: F Assigned Patient Location: ER Current Patient Location: ER Accession/Order Number: [id number] Exam Date: 02/16/2023 15:35 Report Date: 02/16/2023 16:30 At the request of: CARLOS MONAE Procedure: CT head/brain wo con EXAM: CT head/brain wo con HISTORY: Weakness COMPARISON: 12/24/2022 TECHNIQUE: Axial CT images were obtained of the head without intravenous contrast. Multiplanar reconstructions were performed. FINDINGS: No acute intracranial hemorrhage. No acute loss of kolb/white differentiation. The ventricles and sulci are prominent, similar in appearance to the previous exam, likely due to parenchymal volume loss. The osseous structures are unremarkable. No soft tissue abnormality identified. The paranasal sinuses and mastoid air cells are clear. CT/CT head/brain wo con IMPRESSION: 1. No acute intracranial abnormality. 2. Atrophy. Electronically authenticated by: VELMA EWING Date: 02/16/2023 16:30
--- NOTE | 2023-02-16 14:42 | ED_ITS ---
HPI - General Adult General Chief complaint: Weakness Stated complaint: GENERAL WEAKNESS Time Seen by Provider: 02/16/23 14:33 Source: patient Mode of arrival: ambulance Limitations: physical limitation History of Present Illness HPI narrative: patient is a 77-year-old female well-known to this emergency department who presents to the Emergency Room by ambulance her home in [place] where she is a resident with her for generalized weakness and difficulty ambulating. Patient has been seen in this emergency department for the same complaint multiple times, typically when EMS arrived to the home for lift assist, patient is weak or hypotensive. She was admitted to this hospital one month ago and was given a blood transfusion for chronic anemia, she also has chronic kidney disease. She denies any significant pain although she admits she fell 2 days ago. She is noted to have abrasion and bruising to the face. She is on Coumadin. She denies chest paain, shortness breath, vomiting, diarrhea. She states she is eating and drinking fairly well at home. She has a history of Charcot foot which complicates her ambulation. Related Data Home Medications Medication Instructions Recorded Confirmed aspirin 81 mg tablet,delayed 81 mg PO DAILY 01/09/23 02/16/23 release (Adult Aspirin Regimen) bumetanide 1 mg tablet 1 mg PO BID 01/09/23 02/16/23 ferrous sulfate 325 mg (65 mg 650 mg PO DAILY 01/09/23 02/16/23 iron) tablet (Feosol) gabapentin 100 mg capsule 200 mg PO BID 01/09/23 02/16/23 insulin degludec 100 unit/mL (3 10 unit subcut QPM 01/09/23 02/16/23 mL) subcutaneous pen (Tresiba FlexTouch U-100 insulin) insulin lispro 100 unit/mL 1 sliding scale dose subcut 01/09/23 02/16/23 subcutaneous cartridge (Humalog USEASDIRECTD U-100 Insulin) metoprolol tartrate 25 mg tablet 25 mg PO BID 01/09/23 02/16/23 pantoprazole 40 mg tablet,delayed 40 mg PO DAILY 01/09/23 02/16/23 release sertraline 100 mg tablet 100 mg PO DAILY 01/09/23 02/16/23 simvastatin 40 mg tablet 40 mg PO QPM 01/09/23 02/16/23 warfarin 1 mg tablet 3 mg PO DAILY 01/09/23 02/16/23 Allergies Allergy/AdvReac Type Severity Reaction Status Date / Time No Known Drug Allergies Allergy Verified 01/07/23 14:19 Review of Systems ROS Constitutional Denies: fever or chills Ears, nose, mouth, and throat Denies: throat pain or nasal congestion Cardiovascular Denies: chest pain Respiratory Denies: shortness of breath or cough Gastrointestinal Denies: nausea or vomiting Genitourinary Denies: painful urination Musculoskeletal Denies: back pain, neck pain or extremity pain Integumentary/Breast Denies: rash Neurological Denies: headache Hematologic/Lymphatic Reports: easy bruising PFSH [facility] Medical History (Updated 02/16/23 @ 16:55 by KRISTIN Pinedo) Anemia ?D64.9 - Anemia, unspecified (ICD-10) Bleeding from wound ?T14.8XXA - Other injury of unspecified body region, initial encounter (ICD- 10) Diabetes ?E11.9 - Type 2 diabetes mellitus without complications (ICD-10) Kidney disease ?N28.9 - Disorder of kidney and ureter, unspecified (ICD-10) Visit for wound care Surgical History (Updated 01/11/23 @ 00:00 by ) Heart valve replaced ?Z95.2 - Presence of prosthetic heart valve (ICD-10) Family History (Updated 01/09/23 @ 23:22 by Flavia Jensen) Mother Family history of diabetes mellitus Father Family history of diabetes mellitus Family history of myocardial infarction Social History Within the past year, how often did you have a drink containing alcohol: never Within the past year, how often did you have six or more drinks on one occasion: never Score interpretation: A score less than 3 is consistent with normal alcohol consumption. Smoking status: Never smoker Second hand tobacco smoke exposure: No Non-prescribed substance use: denies use Previous occupational history: Known occupational exposures/hazards: No Highest level of school completed/degree received: high school graduate Do you want help with school or training: No Are you now , , , , never or living with a partner: In a typical week, how many times do you talk on the telephone with family, friends, or neighbors: 3 or more times per week How often do you get together with friends or relatives: 3 or more times per week How often do you attend tenriism or bahai services: 4 or more times per year Do you belong to any clubs or organizations such as tenriism groups unions, fraternal or athletic groups, or school groups: no Total score: 3 Score interpretation: A score of greater than or equal to 2 indicates the lowest level of social isolation. Little interest or pleasure in doing things: not at all Feeling down, depressed, or hopeless: not at all Feel stressed/tense/nervous/anxious/difficulty sleeping: only a little Due to disability, difficulty making decisions: No Do you think of yourself as: straight/heterosexual Gender Identity: female Exam Narrative Exam Narrative: Gen.: Awake, alert, in no distress Head: Normocephalic, abrasion over the nasal bridge, no septal hematoma or epistaxis noted. Ecchymosis to the left upper eyelid noted with no significant periorbital edema. Cataract noted. ENT: Moist mucous membranes, no active epistaxis or dental injury Respiratory: No respiratory distress, lungs clear bilaterally Cardio: Regular rate and rhythm Gastrointestinal: Abdomen is soft, nondistended and nontender to palpation; pelvis is stable, hips nontender Extremities: braces noted to the bilateral ankles for Charcot foot, bilateral th ighs noted to have bruising in various stages of healing with no bony tenderness of the knees or hips. Psych: Normal mood and affect Neuro: No focal neuro deficit Skin: Warm, dry, intact Constitutional Vital Signs, click to edit/add: Last Vital Signs Pulse 83 02/16/23 16:01 Resp 21 02/16/23 16:01 BP 143/72 H 02/16/23 16:01 Pulse Ox 98 02/16/23 15:14 O2 Del Method Nasal Cannula 02/16/23 15:14 O2 Flow Rate 2 02/16/23 15:14 Course Vital Signs Vital signs: Vital Signs Pulse Rate 87 02/16/23 14:33 Respiratory Rate 20 02/16/23 14:33 Blood Pressure 141/78 02/16/23 14:33 Pulse Oximetry 96 02/16/23 14:33 Oxygen Delivery Method Nasal Cannula 02/16/23 14:33 Oxygen Delivery Flow Rate 2 02/16/23 14:33 Pulse Rate 83 02/16/23 16:01 Respiratory Rate 21 02/16/23 16:01 Blood Pressure 143/72 H 02/16/23 16:01 Pulse Oximetry 98 02/16/23 15:14 Oxygen Delivery Method Nasal Cannula 02/16/23 15:14 Oxygen Delivery Flow Rate 2 02/16/23 15:14 Medical Decision Making MDM Narrative Medical decision making narrative: patient was stable vital signs, treated with IV fluids. CT of the head and facial bones is unremarkable. Patient with stable, chronic kidney disease although her hemoglobin is now down to 7.2. Her Hemoccult was negative one month ago when she received a blood transfusion for the same symptoms. She does not complain of any active bleeding per rectum. she has no complaints of pain in the Emergency Room. Patient and her family state that they are seeking placement in a facility for rehab versus SNF. patient's PCP referred them to the emergency department for this. Patient has a history of generalized weakness, frequent falls and difficulty caring for herself at home. Urine specimen is unremarkable. Patient will be admitted for weakness and anemia. Medical Records Medical records reviewed: Yes I reviewed the patient's medical records Lab Data Lab results reviewed: Yes I reviewed the patient's lab results Labs: Lab Results 02/16/23 02/16/23 Range/Units 14:51 15:05 WBC 7.7 (4.0-11.0) 10^3/uL RBC 2.29 L (4.20-5.40) 10^6/uL Hgb 7.2 L (12.0-16.0) g/dL Hct 24.8 L (36.0-48.0) % MCV 108.3 H (81.0-99.0) fL MCH 31.4 (26.7-34.0) pg MCHC 29.0 L (29.9-35.2) g/dL RDW 16.7 H (11.0-15.0) % Plt Count 285 (150-450) 10^3/uL MPV 11.1 (9.5-13.5) fL Seg Neuts % (Manual) 89.0 Lymphocytes % (Manual) 7.0 L (20.5-60.0) % Monocytes % (Manual) 2.0 (1.7-12.0) % Eosinophils % (Manual) 2.0 (0.9-7.0) % Basophils % (Manual) 0.0 L (0.2-2.0) % Neutrophils # (Manual) 6.85 H (1.4-6.5) 10^3/uL Lymphocytes # (Manual) 0.53 L (1.20-3.80) 10^3/uL Monocytes # (Manual) 0.15 L (0.30-0.80) 10^3/uL Eosinophils # (Manual) 0.15 (0.00-0.70) 10^3/uL Basophils # (Manual) 0.00 (0.00-0.10) 10^3/uL Hypochromasia 2+ Poikilocytosis 1+ Anisocytosis 2+ Macrocytosis 2+ PT 39.2 H (9.0-11.6) sec INR 4.00 Sodium 141 (136-145) mmol/L Potassium 3.8 (3.5-5.1) mmol/L Chloride 105 (98-107) mmol/L Carbon Dioxide 26.0 (21.0-32.0) mmol/L Anion Gap 13.8 BUN 73.0 H (7.0-18.0) mg/dL Creatinine 1.98 H (0.55-1.02) mg/dL Est GFR ( Amer) 30 L (>=60) Est GFR (Non-Af Amer) 24 L (>=60) BUN/Creatinine Ratio 36.9 Glucose 105 (74-106) mg/dL Lactate 1.1 (0.4-2.0) mmol/L Calcium 9.1 (8.5-10.1) mg/dL Total Bilirubin 0.7 (0.2-1.0) mg/dL AST 46 H (15-37) U/L ALT 28 (14-59) U/L Alkaline Phosphatase 153 H (46-116) U/L Troponin I High Sens 18.7 (4.0-51.3) pg/mL Total Protein 6.8 (6.4-8.2) g/dL Albumin 2.9 L (3.4-5.0) g/dL Globulin 3.9 g/dL Albumin/Globulin Ratio 0.7 TSH 4.497 H (0.358-3.740) uIU/mL Urine Color Lt. yellow (YELLOW) Urine Clarity Clear (CLEAR) Urine pH 5.5 (5.0-9.0) Ur Specific [place] 1.015 (1.005-1.025) Urine Protein Negative (NEG/TRACE) mg/dL Urine Glucose (UA) Negative (NEGATIVE) mg/dL Urine Ketones Negative (NEGATIVE) mg/dL Urine Occult Blood Negative (NEGATIVE) Urine Nitrite Negative (NEGATIVE) Urine Bilirubin Negative (NEGATIVE) Urine Urobilinogen 0.2 (0.2-1.0) EU/dL Ur Leukocyte Esterase Negative (NEGATIVE) Imaging Data CT scan - head: Attestation: I have reviewed the pertinent imaging results. Radiologist's impression: Procedure: CT head/brain wo con EXAM: CT head/brain wo con HISTORY: Weakness COMPARISON: 12/24/2022 TECHNIQUE: Axial CT images were obtained of the head without intravenous contrast. Multiplanar reconstructions were performed. FINDINGS: No acute intracranial hemorrhage. No acute loss of kolb/white differentiation. The ventricles and sulci are prominent, similar in appearance to the previous exam, likely due to parenchymal volume loss. The osseous structures are unremarkable. No soft tissue abnormality identified. The paranasal sinuses and mastoid air cells are clear. IMPRESSION: 1. No acute intracranial abnormality. 2. Atrophy. Electronically authenticated by: [employer] Date: 02/16/2023 16:30 Procedure: CT facial bones wo con EXAM: CT facial bones wo con HISTORY: Fall, weakness COMPARISON: None. TECHNIQUE: Axial CT images were obtained of the facial bones without intravenous contrast. Multiplanar reconstructions were performed. FINDINGS: No acute facial bone fractures. The paranasal sinuses and mastoid air cells are well aerated. There is a small mucous retention cyst or polyp in the right maxillary sinus. The soft tissues are unremarkable. IMPRESSION: No acute facial fracture. Electronically authenticated by: [employer] Date: 02/16/2023 16:33 Chest x-ray: Radiologist's impression: Procedure: XR chest 1V EXAM: XR chest 1V HISTORY: Fall, weakness COMPARISON: 01/09/2023 TECHNIQUE: Single frontal view of the chest. FINDINGS: Tubes/lines/devices: Abandoned epicardial pacing leads. Mitral valve prosthesis. Lungs: Adequate inflation. Retrocardiac consolidation.. Pleura: No pneumothorax. Small left effusion, unchanged. Possible layering small right pleural effusion. Heart and mediastinum: No enlargement of the cardiomediastinal silhouette. Median sternotomy. Aortic atherosclerosis. Bones/soft tissues: No acute osseous findings. Unremarkable soft tissues. Abdomen: Unremarkable. IMPRESSION: Small left, possible small right pleural effusion and likely adjacent atelectasis. Electronically authenticated by: ROMÁN [employer] Date: 02/16/2023 16:42 XR pelvis: Attestation: I have reviewed the pertinent imaging results. Radiologist's impression: Procedure: XR pelvis 1-2V EXAM: XR pelvis 1-2V HISTORY: Fall, weakness COMPARISON: None. TECHNIQUE: Single view of the pelvis. FINDINGS: No evidence of proximal femur fracture or hip dislocation. No pelvic fracture or diastases. Severe lower lumbar spine degenerative changes. Hip joint spaces are maintained. Vascular calcifications. Pelvic phlebolith. Rectal stool burden. IMPRESSION: No acute findings. Electronically authenticated by: CHANDLER BANSAL Date: 02/16/2023 16:44 ECG Data Attestation: I personally reviewed and interpreted this ECG as follows: (normal sinus rhythm at a rate of eighty-one, no acute ST elevation or ectopy. EKG reviewed by attending physician) Discharge Plan Discharge Chief Complaint: Weakness Patient Disposition: Admitted As Inpatient Time of Disposition Decision: 16:55 Prescriptions / Home Meds: No Action bumetanide 1 mg tablet 1 mg PO BID gabapentin 100 mg capsule 200 mg PO BID metoprolol tartrate 25 mg tablet 25 mg PO BID pantoprazole 40 mg tablet,delayed release (DR/EC) 40 mg PO DAILY sertraline 100 mg tablet 100 mg PO DAILY simvastatin 40 mg tablet 40 mg PO QPM warfarin 1 mg tablet 3 mg PO DAILY insulin degludec [Tresiba FlexTouch U-100] 100 unit/mL (3 mL) insulin pen 10 unit subcut QPM Humalog U-100 Insulin 100 unit/mL cartridge 1 sliding scale dose subcut USEASDIRECTD aspirin [Adult Aspirin Regimen] 81 mg tablet,delayed release (DR/EC) 81 mg PO DAILY ferrous sulfate [Feosol] 325 mg (65 mg iron) tablet 650 mg PO DAILY Referrals: MEAGN VALLES [Primary Care Provider] - 1 week
[2023-02-16 15:02] LABS: Hematocrit 24.8 % (36.0-48.0); Hemoglobin 7.2 g/dL (12.0-16.0); Mean Corpuscular Hemoglobin 31.4 pg (26.7-34.0); Mean Corpuscular Volume 108.3 fL (81.0-99.0); Mean Platelet Volume 11.1 fL (9.5-13.5); Platelet Count 285 10^3/uL (150-450); Red Blood Count 2.29 10^6/uL (4.20-5.40); Red Cell Distribution Width 16.7 % (11.0-15.0); White Blood Count 7.7 10^3/uL (4.0-11.0)
[2023-02-16 15:13] LABS: Prothrombin Time 39.2 sec (9.0-11.6)
[2023-02-16 15:14] LABS: Alanine Aminotransferase 28 U/L (14-59); Albumin Globulin Ratio 0.7; Albumin Level 2.9 g/dL (3.4-5.0); Alkaline Phosphatase 153 U/L (46-116); Anion Gap 13.8; Aspartate Amino Transferase 46 U/L (15-37); BUN Creatinine Ratio 36.9; Bilirubin Total 0.7 mg/dL (0.2-1.0); Calcium 9.1 mg/dL (8.5-10.1); Chloride 105 mmol/L (98-107); Estimated GFR (African America 30 (>=60); Estimated GFR (Non-African Ame 24 (>=60); Globulin 3.9 g/dL; Glucose 105 mg/dL (74-106); Potassium 3.8 mmol/L (3.5-5.1); Sodium 141 mmol/L (136-145); Total Protein 6.8 g/dL (6.4-8.2)
[2023-02-16 15:16] LABS: Lactate/Lactic Acid 1.1 mmol/L (0.4-2.0)
[2023-02-16 15:17] LABS: Troponin I High Sensitivity 18.7 pg/mL (4.0-51.3)
[2023-02-16 15:21] LABS: Thyroid Stimulating Hormone 4.497 uIU/mL (0.358-3.740)
[2023-02-16 15:22] LABS: Bilirubin Urine NEGATIVE (NEGATIVE); Blood Urine NEGATIVE (NEGATIVE); Clarity Urine CLEAR (CLEAR); Color Urine LT. YELLOW (YELLOW); Glucose Urine UA NEGATIVE (NEGATIVE); Ketones Urine NEGATIVE (NEGATIVE); Leukocyte Esterase Urine NEGATIVE (NEGATIVE); Nitrite Urine NEGATIVE (NEGATIVE); Protein Urine NEGATIVE (NEG/TRACE); Specific Gravity Urine 1.015 (1.005-1.025); Urobilinogen Urine 0.2 EU/dL (0.2-1.0); pH Urine 5.5 (5.0-9.0)
[2023-02-16 15:24] LABS: Eosinophils Absolute Manual 0.15 10^3/uL (0.00-0.70); Lymphocytes Absolute Manual 0.53 10^3/uL (1.20-3.80); Monocytes Absolute Manual 0.15 10^3/uL (0.30-0.80); Segmented Neut Absolute Manual 6.85 10^3/uL (1.4-6.5)
[2023-02-16 15:25] LABS: Anisocytosis 2+; Hypochromasia 2+; Macrocytosis 2+; Poikilocytosis 1+
[2023-02-16 15:26] LABS: Urine Microscopic Indicated NO
[2023-02-16] MEDS: 0.9 % SODIUM CHLORIDE 1,000 ML 999 ML IV (15:54)
[2023-02-16 20:10] LABS: Glucometer 122 mg/dL (74-106)
--- NOTE | 2023-02-16 21:46 | W.PM.TELEPN ---
Progress Note: Subjective Subjective Interval history: Chief Complaint: -Unsteady gait History of Present Illness: This is a very pleasant 77 years old female resident of assisted living facility who presents with above complaints. Patient stating that usually she able to ambulate with a walker without any help. She stating that since yesterday she has not been feeling well. She cannot specify what exactly she meant by that. She denies chest pain, palpitations, fever, chills, nausea, vomiting. Patient is on Coumadin. Patient is status post mitral valve replacement with bioprosthetic valve, but also she has a history of atrial fibrillation and takes Coumadin for stroke prevention's. Evaluation in the emergency room revealed INR of 4. Patient has bilateral lower extremity edema. Admitted for further evaluation and treatment Exam Narrative Exam Narrative: ROS: 1.General: no fever, chills, not in distress 2.HEENT: no RIVER, no blurry vision, no swallow problems, no nasal congestion, no sore throat 3.Pulmonary: no cough, SOB, wheezes 4.CVS: no CP, no palpitations, no CHASE, no SOB, no intermittent claudication 5.GI: no nausea, vomiting or diarrhea, no abdominal pain, no constipation, no hematemesis or hematochezia 6.: no renal colic, no hematuria, urinary frequency or urgency 7.Extremities: no edema 8.Neurological: no dizziness, vertigo, double or blurry vision, no no focal weakness, no paresthesia, no swallow or speech problems 9.Musculosceletal: no joint pains, no joint swelling, no back pain 10.Dermatological: no skin rashes, no lesions, no pruritus 11.Hematological: no bleeding, no hx/o clots 12.Endocrinological: no heat/cold intolerance, no hx/o diabetes 13.Psychiatric: no suicidal or homicidal thoughts Physical Exam: Not in distress, pleasant, lucid, cooperative, Head - atraumatic, eyes - pupils equal, round, reactive to light, extra ocular movement intact, MMM Neck - supple, thyroid not enlarged, LN not palpated Lungs - clear to auscultation, no dullness on percussion CVS - heart sounds S1, S2, no additional murmurs gallop, regular rate and rhythm Gastrointestinal?abdomen is soft, non-tender, non-distended, no organomegaly, positive bowel sounds Extremities no clubbing, cyanosis 2+ bilateral lower extremity pitting edema Neurological?cranial nerve II?XII grossly intact, no meningeal signs, no cerebellar signs, no sensory deficit Musculoskeletal - DJD related changes in multiple joints, no effusions, ROM preserved Dermatological - the skin dry, warm, multiple bruises in different stages of healing. Decubital ulcers (small) in the sacral area Psychiatric?patient is AAO X3, patient has normal affect Constitutional Vital Signs, click to edit/add: Last Vital Signs Temp 97.5 F L 02/16/23 18:22 Pulse 80 02/16/23 20:00 Resp 18 02/16/23 20:00 BP 135/69 02/16/23 18:22 Pulse Ox 98 02/16/23 18:22 O2 Del Method Nasal Cannula 02/16/23 18:22 O2 Flow Rate 2 02/16/23 18:22 Progress Note: Objective Labs Labs: Short CBC 02/16/23 Range/Units 14:51 WBC 7.7 (4.0-11.0) 10^3/uL Hgb 7.2 L (12.0-16.0) g/dL Hct 24.8 L (36.0-48.0) % Plt Count 285 (150-450) 10^3/uL BMP 02/16/23 14:51 Sodium 141 Potassium 3.8 Chloride 105 Carbon Dioxide 26.0 BUN 73.0 H Creatinine 1.98 H Glucose 105 Calcium 9.1 Liver Function 02/16/23 Range/Units 14:51 Total Bilirubin 0.7 (0.2-1.0) mg/dL AST 46 H (15-37) U/L ALT 28 (14-59) U/L Alkaline Phosphatase 153 H (46-116) U/L Albumin 2.9 L (3.4-5.0) g/dL Urine 02/16/23 Range/Units 15:05 Urine Color Lt. yellow (YELLOW) Urine Clarity Clear (CLEAR) Urine pH 5.5 (5.0-9.0) Ur Specific [place] 1.015 (1.005-1.025) Urine Protein Negative (NEG/TRACE) mg/dL Urine Glucose (UA) Negative (NEGATIVE) mg/dL Progress Note: A&P Assessment and Plan (1) Frequent falls: Assessment and Plan: Gait disturbances?fall precautions ordered Follow-up with physical occupational therapy for further recommendations (2) Anemia in chronic kidney disease: Assessment and Plan: No active bleeding at present. No need for transfusion. (3) CKD (chronic kidney disease) stage 4, GFR 15-29 ml/min: Assessment and Plan: Monitor BUN and creatinine closely. Avoid use of nephrotoxic medications (4) Type 2 diabetes mellitus with hyperglycemia: Assessment and Plan: DM- continue with ADA diet - hold off oral hypoglycemic agents while in the hospital to avoid hypoglycemic episodes - frequent accuchecks (TID AC + HS) - will provide coverage with long acting insulin as well as short acting insulin with meals - adjust as needed - hypoglycemia protocol in place (5) Charcot foot due to diabetes mellitus: (6) History of mitral valve repair: Assessment and Plan: Fall precaution. Gait disturbances. Plan END: As the provider for the telehealth service, I attest that I introduced myself to the patient, provided my credentials, disclosed by location and determined that based on a review of the patient's chart and discussion with members of the patient's treatment team, telemedicine via real-time, 2 way, and interactive audio and video platform is an appropriate and effective means of providing the service. ?The patient and I mutually agree this visit is appropriate for telemedicine. ?The virtual encounter was taken place from? [place], [place]. ?The encounter took approximately 35 minutes. ?The nurse was present during the entire time and I was able to move the stethoscope in appropriate directions. ?The patient was evaluated at the Hospital ? Portions of this note may be dictated using [employer] voice recognition software. Variances in spelling and vocabulary are possible and unintentional. Not all errors may be caught and/or corrected. Please notify the author if any discrepancies are noted and/or if the meaning of any statement is unclear.? ? Patient verbally consented for treatment via video visit with patient currently located at the [facility] and provider located in [place]. Telemedicine Attestation Telemedicine Attestation I conducted this encounter from [[place]] via secure live, [id number] video conference with the patient, located at [facility] with [gait disturbances]. Prior to the interview, the risks and benefits of telemedicine were discussed with the patient and verbal consent was obtained.
[2023-02-16] MEDS: INSULIN DETEMIR 300 UNIT/3 ML INSULN.PEN SUBQ (23:42)
[2023-02-16] MEDS: FUROSEMIDE 40 MG/4 ML VIAL IVP (23:43)
[2023-02-17] VITALS (26 sets, daily range): BP systolic 102–152; BP diastolic 48–92; PULSE 67–85; RESP 14–18; TEMP 36.3–36.9; O2SAT 87–98
[2023-02-17 05:46] LABS: Basophils Percent Auto 0.7 % (0.2-2.0); Eosinophils Absolute Auto 0.1 10^3/uL (0.0-0.7); Eosinophils Percent Auto 2.1 % (0.9-7.0); Immature Granulocytes Abs Auto 0.01 10^3/uL (0.00-0.03); Immature Granulocytes Pct Auto 0.2 % (0.0-0.5); Lymphocytes Absolute Auto 0.8 10^3/uL (1.2-3.8); Mean Corpuscular HGB Conc 28.1 g/dL (29.9-35.2); Mean Corpuscular Hemoglobin 30.3 pg (26.7-34.0); Mean Platelet Volume 10.9 fL (9.5-13.5); Monocytes Absolute Auto 0.6 10^3/uL (0.3-0.8); Monocytes Percent Auto 9.5 % (1.7-12.0); Neutrophils Absolute Auto 4.3 10^3/uL (1.4-6.5); Neutrophils Percent Auto 74.5 % (43.0-75.0); Platelet Count 242 10^3/uL (150-450); Red Blood Count 1.88 10^6/uL (4.20-5.40); Red Cell Distribution Width 16.5 % (11.0-15.0); White Blood Count 5.8 10^3/uL (4.0-11.0)
[2023-02-17 05:59] LABS: INR 3.77; Prothrombin Time 37.1 sec (9.0-11.6)
[2023-02-17 06:12] LABS: Magnesium 2.1 mg/dL (1.8-2.4)
[2023-02-17 06:19] LABS: Anion Gap 12.5; Calcium 8.8 mg/dL (8.5-10.1); Carbon Dioxide 24.6 mmol/L (21.0-32.0); Chloride 110 mmol/L (98-107); Estimated GFR (African America 36 (>=60); Estimated GFR (Non-African Ame 30 (>=60); Glucose 60 mg/dL (74-106); Potassium 3.1 mmol/L (3.5-5.1); Sodium 144 mmol/L (136-145)
[2023-02-17 06:29] LABS: Hematocrit 20.3 % (36.0-48.0); Hemoglobin 5.7 g/dL (12.0-16.0)
[2023-02-17] MEDS: METOPROLOL TARTRATE 25 MG TABLET PO ×2 (09:34→20:42)
[2023-02-17] MEDS: OMEPRAZOLE 40 MG CAPSULE.DR PO (09:34)
[2023-02-17] MEDS: SERTRALINE HCL 100 MG TABLET PO (09:34)
[2023-02-17] MEDS: DOCUSATE SODIUM 100 MG CAPSULE PO ×2 (09:34→20:42)
[2023-02-17] MEDS: GABAPENTIN 100 MG CAPSULE 200 MG PO ×2 (09:34→20:42)
[2023-02-17] MEDS: FERROUS SULFATE 325 MG TABLET 650 MG PO (09:34)
[2023-02-17] MEDS: BUMETANIDE 1 MG TABLET PO (09:34)
[2023-02-17] MEDS: ASPIRIN 81 MG TABLET.DR PO (09:35)
[2023-02-17] MEDS: POTASSIUM CHLORIDE 10 MEQ ER TABLET 40 MEQ PO ×2 (09:36→19:08)
--- NOTE | 2023-02-17 10:08 | P.HP_ITS ---
patient also seen and evaluated by me at the time of admission. I agree with the above findings. Chart including labs, radiology all reviewed. H&P: HPI History of Present Illness Chief complaint: GENERAL WEAKNESS/ANEMIA/FREQUENT FALLS Narrative: Date/time of exam: 02/17/23 1240 This is a 77-year-old female patient with a complicated past medical history as outlined below including DM 2, A-fib, s/p MVR, CAD/CABG x 1, chronic respiratory failure (2L home O2 at [facility]), CKD 4, anemia of chronic disease; who presented to the ED yesterday evening complaining of severe weakness and inability to ambulate. She reports frequent falls with her most recent fall 2 days prior to arrival. She is on warfarin for her A-fib and mitral valve and has bruising to her face and extremities from falls. She denies any active bleeding. Work-up in the ED revealed anemia (Hgb 7.2), supratherapeutic INR (4.0), and stable to low normal CKD [address] of the head/face was unremarkable. A Hip/pelvis XR was also neg for acute fracture or dislocation. A CXR revealed equivocal small pleural effusions and associated atelectasis but was otherwise unremarkable. The patient was initially admitted to the hospitalist service in observation for weakness and frequent falls. At the time of my exam today the patient continues to complain of feeling quite weak. She reports 3-4 falls in the last month. Repeat hemoglobin this morning was very low at 5.7 and 2 units of PRBCs have been ordered. Again the patient denies melena, hematochezia, hematuria, or any other active bleeding. She does have chronically black stools from her iron supplementation but denies any tarry or foul-smelling stools. 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 She is unable to visualize her legs and thus cannot tell me if her peripheral edema is worse than usual. We do not clinically suspect DVT in setting of supratherapeutic INR. She also had a very elevated BNP this morning and we will obtain a 2D echo to assess for worsening heart failure. She will receive IVP Lasix in place of her usual home Bumex dosing for now. Her admission is being changed to inpatient due to her symptomatic anemia requiring blood transfusions, as well as hypokalemia and suspected CHF exacerbation that was noted this morning. PT and OT will evaluate the patient for possible SNF placement at discharge. Review of Systems ROS Status of ROS 10 or more systems reviewed and unremarkable except as noted in history and below [facility] Medical History (Updated 02/17/23 @ 11:08 by Joie Rosenthal NP) A-fib ?I48.91 - Unspecified atrial fibrillation (ICD-10) Anemia ?D64.9 - Anemia, unspecified (ICD-10) Anemia in chronic kidney disease ?N18.9 - Chronic kidney disease, unspecified (ICD-10) ?D63.1 - Anemia in chronic kidney disease (ICD-10) Bleeding from wound ?T14.8XXA - Other injury of unspecified body region, initial encounter (ICD- 10) CAD (coronary artery disease) ?I25.10 - Atherosclerotic heart disease of [place] coronary artery without angina pectoris (ICD-10) Charcot foot due to diabetes mellitus ?E11.610 - Type 2 diabetes mellitus with diabetic neuropathic arthropathy (ICD-10) Chronic respiratory failure ?J96.10 - Chronic respiratory failure, unspecified whether with hypoxia or hypercapnia (ICD-10) CKD (chronic kidney disease) stage 4, GFR 15-29 ml/min ?N18.4 - Chronic kidney disease, stage 4 (severe) (ICD-10) Consolidation of left lower lobe of lung ?J18.1 - Lobar pneumonia, unspecified organism (ICD-10) Diabetes ?E11.9 - Type 2 diabetes mellitus without complications (ICD-10) Heart failure ?I50.9 - Heart failure, unspecified (ICD-10) Kidney disease ?N28.9 - Disorder of kidney and ureter, unspecified (ICD-10) Type 2 diabetes mellitus with hyperglycemia ?E11.65 - Type 2 diabetes mellitus with hyperglycemia (ICD-10) Visit for wound care Surgical History (Updated 02/17/23 @ 10:20 by Joie Rosenthal NP) Heart valve replaced ?Z95.2 - Presence of prosthetic heart valve (ICD-10) History of mitral valve repair ?Z98.890 - Other specified postprocedural states (ICD-10) Hx of CABG ?Z95.1 - Presence of aortocoronary bypass graft (ICD-10) Family History (Updated 01/09/23 @ 23:22 by Flavia Jensen) Mother Family history of diabetes mellitus Father Family history of diabetes mellitus Family history of myocardial infarction Social History Within the past year, how often did you have a drink containing alcohol: never Within the past year, how often did you have six or more drinks on one occasion: never Score interpretation: A score less than 3 is consistent with normal alcohol consumption. Smoking status: Never smoker Second hand tobacco smoke exposure: No Non-prescribed substance use: denies use Previous occupational history: Known occupational exposures/hazards: No Highest level of school completed/degree received: high school graduate Do you want help with school or training: No Are you now , , , , never or living with a partner: In a typical week, how many times do you talk on the telephone with family, friends, or neighbors: 3 or more times per week How often do you get together with friends or relatives: 3 or more times per week How often do you attend alevism or shinto services: 4 or more times per year Do you belong to any clubs or organizations such as alevism groups unions, [employer] or athletic groups, or school groups: no Total score: 3 Score interpretation: A score of greater than or equal to 2 indicates the lowest level of social isolation. Little interest or pleasure in doing things: not at all Feeling down, depressed, or hopeless: not at all Feel stressed/tense/nervous/anxious/difficulty sleeping: only a little Due to disability, difficulty making decisions: No Do you think of yourself as: straight/heterosexual Gender Identity: female Meds Home Medications and Allergies Home Medications Medication Instructions Recorded Confirmed Type aspirin 81 mg tablet,delayed 81 mg PO DAILY 01/09/23 02/16/23 History release (Adult Aspirin Regimen) bumetanide 1 mg tablet 1 mg PO BID 01/09/23 02/16/23 History ferrous sulfate 325 mg (65 mg 650 mg PO DAILY 01/09/23 02/16/23 History iron) tablet (Feosol) gabapentin 100 mg capsule 200 mg PO BID 01/09/23 02/16/23 History insulin degludec 100 unit/mL (3 10 unit subcut QPM 01/09/23 02/16/23 History mL) subcutaneous pen (Tresiba FlexTouch U-100 insulin) insulin lispro 100 unit/mL 1 sliding scale dose subcut 01/09/23 02/16/23 History subcutaneous cartridge (Humalog USEASDIRECTD U-100 Insulin) metoprolol tartrate 25 mg tablet 25 mg PO BID 01/09/23 02/16/23 History pantoprazole 40 mg tablet,delayed 40 mg PO DAILY 01/09/23 02/16/23 History release sertraline 100 mg tablet 100 mg PO DAILY 01/09/23 02/16/23 History simvastatin 40 mg tablet 40 mg PO QPM 01/09/23 02/16/23 History warfarin 1 mg tablet 3 mg PO DAILY 01/09/23 02/16/23 History Allergies Allergy/AdvReac Type Severity Reaction Status Date / Time No Known Drug Allergies Allergy Verified 01/07/23 14:19 Exam Constitutional Vital Signs, click to edit/add: Last Vital Signs Temp 97.8 F 02/17/23 05:45 Pulse 85 02/17/23 09:38 Resp 18 02/17/23 05:45 BP 115/66 02/17/23 09:38 Pulse Ox 97 02/17/23 05:45 O2 Del Method Nasal Cannula 02/17/23 05:45 O2 Flow Rate 2 02/17/23 05:45 Common normals: no apparent distress, oriented x3, alert and well nourished General appearance: cooperative Orientation/consciousness: Yes awake HENWV Common normals: normocephalic, hearing grossly normal bilaterally and moist oral mucous membranes Eye Common normals: EOMs intact bilaterally, conjunctivae normal and no scleral icterus Alignment: alignment normal Conjunctiva: conjunctiva(e) normal Chest Common normals: inspection of chest normal Chest: symmetrical chest wall rise Respiratory Common normals: normal respiratory effort, no retractions, no use of accessory muscles and clear to auscultation bilaterally Effort & inspection: able to speak in complete sentences Auscultation: clear to auscultation bilaterally and diminished lung sounds (Very diminished BLL) Cardio Common normals: no JVD, regular rate, regular rhythm, S1 normal heart sound, S2 normal heart sound, no gallops, no clicks, no rub and peripheral pulses 2+ throughout Heart sounds: murmur (HSM 3/6) GI Common normals: Normal to inspection, nondistended, normoactive bowel sounds present, soft to palpation, non-tender, no hepatosplenomegaly, no masses and no bruits Bladder/kidney exam: bladder normal to palpation Back & Pelvis Common normals: thoracic and lumbar spine normal to inspection Extremity Common normals: normal capillary refill and no calf tenderness General: edema (BLE 1-3+, greatest at L foot); no clubbing and no cyanosis Other: R Charcot foot deformity Neuro Lencho Coma Scale: GCS not evaluated Common normals: oriented x3, CN's II-XII intact bilaterally, moves all extrem ities and no focal motor deficits Sensorium/orientation: awake and alert Speech: speech normal Psych Common normals: mental status grossly normal, thought process normal, affect normal and activity/motor behavior normal Results Labs Labs: Short CBC 02/16/23 02/17/23 Range/Units 14:51 05:00 WBC 7.7 5.8 (4.0-11.0) 10^3/uL Hgb 7.2 L 5.7 L* (12.0-16.0) g/dL Hct 24.8 L 20.3 L* (36.0-48.0) % Plt Count 285 242 (150-450) 10^3/uL BMP 02/16/23 02/17/23 14:51 05:00 Sodium 141 144 Potassium 3.8 3.1 L Chloride 105 110 H Carbon Dioxide 26.0 24.6 BUN 73.0 H 66.0 H Creatinine 1.98 H 1.65 H Glucose 105 60 L Calcium 9.1 8.8 Liver Function 02/16/23 Range/Units 14:51 Total Bilirubin 0.7 (0.2-1.0) mg/dL AST 46 H (15-37) U/L ALT 28 (14-59) U/L Alkaline Phosphatase 153 H (46-116) U/L Albumin 2.9 L (3.4-5.0) g/dL Urine 02/16/23 Range/Units 15:05 Urine Color Lt. yellow (YELLOW) Urine Clarity Clear (CLEAR) Urine pH 5.5 (5.0-9.0) Ur Specific [place] 1.015 (1.005-1.025) Urine Protein Negative (NEG/TRACE) mg/dL Urine Glucose (UA) Negative (NEGATIVE) mg/dL Pulse Oximetry Attestation: I have reviewed the pertinent pulse oximetry results. ECG Interpretation: IMPRESSION: Sinus rhythm Nonspecific intraventricular conduction delay Abnormal right axis deviation Long QTc interval Low voltage across the precordium Imaging Chest x-ray: Attestation: I have reviewed the pertinent imaging results. Radiologist's impression: IMPRESSION: Small left, possible small right pleural effusion and likely adjacent atelectasis. Pelvis XR: Attestation: I have reviewed the pertinent imaging results. Radiologist's impression: IMPRESSION: No acute findings. CT scan - head: Attestation: I have reviewed the pertinent imaging results. Radiologist's impression: IMPRESSION: 1. No acute intracranial abnormality. 2. Atrophy. CT scan - facial bones: Attestation: I have reviewed the pertinent imaging results. Radiologist's impression: IMPRESSION: No acute facial fracture. Assessment and Plan Assessment and Plan (1) Symptomatic anemia: Assessment and Plan: ACUTE Laboratory Tests 01/10/23 02/16/23 02/17/23 06:23 14:51 05:00 Hgb 10.1 L 7.2 L 5.7 L* * Change admission to inpatient * symptomatic with increased weakness and falls * 2 un PRBCs ordered w/ Lasix 40 mg in between units * Repeat hgb at 1500, or 30-60 min post completion of transfusion * Further PRBC transfusions for hgb < 7 or significantly symptomatic * No clinical concern for active bleeding at this time despite supratherapeutic INR * Check FOB * Hold warfarin for now * Daily CBC (2) Acute exacerbation of CHF (congestive heart failure): Assessment and Plan: ACUTE Laboratory Tests 02/17/23 05:00 NT-Pro-B Natriuret Pep 30404.0 H* * Suspected w/ significantly elevated BNP and notable peripheral edema on exam * BNP result may reflect poor renal function - monitor trend * Pt given IVF bolus in the ED which may contribute to fluid overload/chf * CHF may be contributing to severe anemia (hemodilution) * Pt chronically uses O2 only at night but is currently on 2L during the day as well * Attempt to wean off O2 during the day per usual routine * O2 if needed to keep sats above 90% * 2D echo today to assess for worsening WM or new valvular abnormalities * s/p bioprosthetic MVR * Hold home bumex * Start Lasix 40 mg IVP BID today * Daily weights and strict I&O * Monitor renal function closely with increased diuretic administration * CMP, BNP in am (3) Hypokalemia: Assessment and Plan: ACUTE Laboratory Tests 02/16/23 02/17/23 14:51 05:00 Potassium 3.8 3.1 L * K+ drop may reflect hemodilution and/or potassium wasting w/ diuretic use * Give PO KCL 40 mEq q6h x 2 doses today, PLUS IV KCL 20 mEq x 1 * Mg lvl WNL today (2.1) * Repeat CMP in AM (4) Hypothyroid: Assessment and Plan: ACUTE * TSH elevated in ED (4.497) * Reflex FT3, FT4 ordered - pending * Second elevated TSH in as many months - not currently on thyroid replacement therapy * May be contributing to weakness, falls, and anemia * Start levothyroxine at 25 mcg/day in AM * Repeat TSH in 4-6 weeks outpatient (5) Frequent falls: Assessment and Plan: ACUTE ON CHRONIC * PT/OT consults * Ambulate with assistance (6) Weakness: Assessment and Plan: ACUTE ON CHRONIC * Multifactorial - Severe anemia, CHF exacerbation, hypokalemia, untreated hypothyroidism * See dx above * PT/OT eval and treat * Consider SNF placement at d/c for further strengthening (7) Traumatic open wound of left lower leg: Assessment and Plan: SUBACUTE * L spencer wound after fall approx 3-4 weeks ago * Treated at [place] [facility], but pt was unable to return in the last 1-2 weeks as scheduled d/t severe weakness * Not healing well, but does not clinically appear infected * High risk of becoming a non-healing DM2 wound * Wound care C/S (8) Chronic respiratory failure: Assessment and Plan: CHRONIC * Multifactorial * Home O2 at 2L only at [facility] * Attempt to wean off O2 during the day * May reflect acute on chronic respiratory (CHF exacerbation/anemia) failure if unable to wean off O2 supplementation * O2 to keep sats above 90% (9) CKD (chronic kidney disease) stage 4, GFR 15-29 ml/min: Assessment and Plan: CHRONIC * Stable at CKD4 baseline * Risk for worsening renal fx w/ increased diuretic administration * CMP daily (10) Type 2 diabetes mellitus with hyperglycemia: Assessment and Plan: CHRONIC * ACHS glucometer checks * Med CC diet * Low dose insulin SS for correction * Pt experienced hypoglycemia overnight after receiving levemir at [facility] - hold for now * Check A1C in AM to assess overall glycemic control (11) A-fib: Assessment and Plan: CHRONIC * Hold home warfarin d/t supratherapeutic INR on admission and severe anemia * Resume when clinically indicated * Continue home BB for rate control * Currently in SR * Tele monitoring
--- NOTE | 2023-02-17 10:21 | CA_ITS ---
Patient Name: ARTHUR YEN MR#: [id number] : 1945 Exam Date: 02/17/2023 Ordering Doctor: MORRO CESAR ECHOCARDIOGRAM REPORT PROCEDURE: CA ECHO DOPPLER COMPLETE INDICATIONS: Peripheral edema/hypoxia, congestive heart failure, elevated BNP, mitral valve replacement COMPARISON: None. DESCRIPTION: COMPLETE ECHOCARDIOGRAM Real-time transthoracic echocardiography with 2D, M-mode, spectral and color flow Doppler performed. QUALITY: Technical quality was good. LEFT VENTRICLE: Normal chamber size. Moderate left ventricular hypertrophy. LV EF: Global left ventricular systolic function is normal; visually estimated ejection fraction is 55 to 60%. Abnormal septal motion; not an unusual finding in the post open heart patient. DIASTOLIC: Unable to assess diastolic dysfunction due to prosthetic mitral valve. ATRIAL SEPTUM: Visually appears intact. LEFT ATRIUM: Severe dilatation. RIGHT ATRIUM: Normal chamber size. RIGHT VENTRICLE: Poorly seen. Appears normal in siize. Decreased right ventricular systolic function. TRICUSPID VALVE: Normal mobility and thickness. Mild to moderate regurgitation. Doppler studies reveal severely (>60) elevated right sided pressures. RVSP 85 mmHg MITRAL VALVE: Bio-Prosthetic valve with normal Doppler flows. No mitral regurgitation. Moderate to severe calcification of the mitral annulus and subvalvular apparatus. A hypermobile echogenic structure is seen close to the mitral valve; likely calcified, redundant chordal structure. Differential diagnosis includes vegetation or thrombus. AORTIC VALVE: Normal trileaflet appearance. Thickened aortic valve. Normal leaflet mobility. No evidence of aortic valve stenosis. No aortic regurgitation. AORTIC ROOT: Normal diameter and appearance. PULMONIC VALVE: Normal thickness and mobility. No stenosis. Trivial regurgitation. PERICARDIUM: No evidence of pericardial effusion. IVC: IVC is normal in size with no collapse. CONCLUSION: 1. Global left ventricular systolic function is normal; visually estimated ejection fraction is 55 to 60% 2. Moderately increased left ventricular wall thickness 3. The right ventricle is poorly seen; appears normal in size with reduced systolic function 4. Left atrial dilatation 5. Mild to moderate tricuspid regurgitation 6. Severely elevated right ventricular systolic pressure; RVSP 85 mmHg 7. A bioprosthetic mitral valve is seen with normal Doppler flows; no prosthetic valve regurgitation 8. A hypermobile echogenic structure is seen close to the mitral valve; this likely is calcified, redundant, chordal structures. Differential diagnosis includes vegetation or thrombus. Consider transesophageal echocardiography if clinically warranted. Adult Echocardiography Procedure Report Left Ventricle LVEDD (3.7 - 5.6 cm): 3.44 cm LVESD (2.2 - 4.0 cm): 2.74 cm LVIVS thickness (0.6 - 1.2 cm): 1.16 cm LVPW thickness (0.5 - 1.0 cm): 1.25 cm LVOT Max Gradient: 1.91 mm[Hg], 2.13 mm[Hg] LVOT Area (cm2): 0.73 m/s, 0.69 m/s Peak Velocity (LVOT): 0.73 m/s, 0.69 m/s Mean Velocity (LVOT): 0.46 m/s LVOT Diameter 1.69 cm Left Atrium LA Volume Index (2D A2C): 57.73 ml/m2 Left Atrium Systolic Dimension: 2.89 cm Mitral Valve MV E to A Ratio: 2.09 Mitral Valve A-Wave Peak Velocity: 0.76 m/s Mitral Valve E-Wave Peak Velocity: 1.59 m/s Right Ventricle Aorta AO Root Diam: 3.26 cm Ascending Ao Diam: 2.73 cm Aortic Valve AoV Area (Peak J Carlos): 1.33 cm2, 1.33 cm2, 1.26 cm2, 1.26 cm2, 1.40 cm2, 1.40 cm2, 1.48 cm2, 1.48 cm2 AoV Area (VTI): 1.37 cm2, 1.37 cm2 Peak Velocity(Antegrade Flow): 1.23 m/s, 1.11 m/s Peak Gradient(Antegrade Flow): 4.91 mm[Hg], 6.04 mm[Hg] Mean Velocity(Antegrade Flow): 0.82 m/s Mean Gradient(Antegrade Flow): 3.08 mm[Hg] Velocity Time Integral: 30.31 cm Tricuspid Valve Peak Velocity (Regurgitant Flow): 4.20 m/s Pulmonic Valve Peak Velocity: 0.69 m/s Peak Gradient: 2.02 mm[Hg], 1.74 mm[Hg] Right Atrium Right Atrium Systolic Pressure: 24.80 ml, 24.80 ml Dictated by: Marcos Jamison M.D. on 02/17/2023 at 13:44 Approved by: Marcos Jamison M.D. on 02/17/2023 at 13:56
--- NOTE | 2023-02-17 10:37 | CM.NOTE ---
Rounds made with Dr. Cortez, no discharge today. Pt will receive blood transfusion. PT and OT will evaluate pt.
[2023-02-17 10:51] LABS: Phosphorus 3.7 mg/dL (2.6-4.7)
--- NOTE | 2023-02-17 11:30 | CM.NOTE ---
Important Message From Medicare discussed with pt, pt verbalizes understanding and signs paper. Original given to pt and copy placed on pt's chart.
[2023-02-17 11:47] LABS: Glucometer 89 mg/dL (74-106)
--- NOTE | 2023-02-17 11:54 | CM.NOTE ---
Called intake at [facility] and faxed clinical for new referral.
[2023-02-17 11:57] LABS: Free T4 1.08 ng/dL (0.76-1.46)
[2023-02-17 12:04] LABS: Free T3 1.38 pg/mL (2.18-3.98)
--- NOTE | 2023-02-17 13:15 | CM.NOTE ---
Call received from [facility] that they are able to take patient when medically stable for discharge.
[2023-02-17] MEDS: FUROSEMIDE 40 MG/4 ML VIAL IVP ×2 (13:53→19:12)
--- NOTE | 2023-02-17 14:17 | W.PM.WC ---
Wound Consult Note Assessment and Plan (1) Symptomatic anemia: (2) Acute exacerbation of CHF (congestive heart failure): (3) Hypokalemia: (4) Hypothyroid: (5) Frequent falls: (6) Weakness: (7) Traumatic open wound of left lower leg: (8) Chronic respiratory failure: (9) CKD (chronic kidney disease) stage 4, GFR 15-29 ml/min: (10) Type 2 diabetes mellitus with hyperglycemia: (11) A-fib: Plan Patient seen today for consult for open ulcers to bilateral legs and coccyx. Patient known to [facility]. Patient states she spilled hot coffee on right upper thigh. Currently dressed with xeroform gauze. Area is linear, irregularly shaped with slough covered wound bed. Minimal drainage noted. No signs of infection. Denies pain. Overall area measures 13.8cmx4.1xvf2bd. 100% marbled slough/pink wound bed. Patient has small pinhole opening to right lower leg. There is a small amount of serous drainage to the bandage. No signs of infection. Patient with chronic open ulcer to left lower leg. Family at bedside states patient has a large hematoma on this leg and area was surgically debrided at [facility] and a wound VAC was placed. Area is now mostly healed and without signs of infection. Area measures 3cmx2.1cmx0.1. Wound bed 100% pink, nongranular. BLE OZZY hose in place. Patient tolerating well. Patient with excoriated open ulcerations to bilateral buttocks. Red, moist skin to periwound with open ulcerations. Linear in nature, there is a pressure, moisture, and shear component to these areas. Plan: Medihoney gel to right thigh, left lower leg daily. Cover with gauze. Dry gauze to small open area to right lower leg. Change daily. Triad wound paste to bilateral buttocks, thin layer, daily and as needed after cleansing. Reposition frequently. Air mattress overlay to bed, air cushion to seat. Call [phone] with any questions or concerns.
--- NOTE | 2023-02-17 14:18 | CM.NOTE ---
Talked with pt to let her know [facility] will accept her when medically stable to be discharged.
--- NOTE | 2023-02-17 14:31 | CM.NOTE ---
Called [facility] to update on pt's discharge plan. Pt will go to [facility] for skilled therapy.
--- NOTE | 2023-02-17 15:34 | CM.NOTE ---
Received call from Erin at Dr. Ramos office about pt requesting to go to [facility] for skilled therapy. Erin states the had called her office and told her they were confused on facilities and wanted to go to [facility]. Went in to speak with pt and , states they looked at [facility], [facility], and [facility] and were confused on which one they had choose. had spoke to Erin at Dr. Ramos's office to clarify . Pt and would like to change facility to [facility] for skilled therapy. Reached out and left message with [facility] and [facility] to clarify discharge planning.
[2023-02-17 17:49] LABS: Hematocrit 30.2 % (36.0-48.0); Hemoglobin 9.3 g/dL (12.0-16.0)
[2023-02-17] MEDS: POTASSIUM CHLORIDE IN WATER 10 MEQ/100 ML PIGGYBACK 100 MEQ IV ×2 (19:10→20:19)
[2023-02-17] MEDS: ATORVASTATIN CALCIUM 20 MG TABLET PO (20:42)
--- NOTE | 2023-02-17 21:06 | PC.NURSE ---
after removing teds or the evening, change dressing on left spencer per wound recommendations. dressing changed to gauze with medi-honey on it than covered in wide breathable cloth style tape
[2023-02-18] VITALS (19 sets, daily range): BP systolic 142–149; BP diastolic 76–85; PULSE 62–80; RESP 16–18; TEMP 36.4–36.8; O2SAT 91–94
[2023-02-18 05:31] LABS: INR 2.72; Prothrombin Time 27.2 sec (9.0-11.6)
[2023-02-18 05:35] LABS: Estimated Average Glucose 94 mg/dL; Glycohemoglobin A1C 4.9 % (4.5-6.2)
[2023-02-18 05:40] LABS: Alanine Aminotransferase 24 U/L (14-59); Albumin Globulin Ratio 0.7; Albumin Level 2.4 g/dL (3.4-5.0); Alkaline Phosphatase 138 U/L (46-116); Anion Gap 11.5; Aspartate Amino Transferase 36 U/L (15-37); BUN Creatinine Ratio 35.6; Bilirubin Total 0.9 mg/dL (0.2-1.0); Carbon Dioxide 24.9 mmol/L (21.0-32.0); Chloride 108 mmol/L (98-107); Estimated GFR (African America 41 (>=60); Estimated GFR (Non-African Ame 34 (>=60); Globulin 3.6 g/dL; Glucose 109 mg/dL (74-106); Potassium 4.4 mmol/L (3.5-5.1); Sodium 140 mmol/L (136-145)
[2023-02-18 05:48] LABS: Hematocrit 28.9 % (36.0-48.0); Hemoglobin 8.8 g/dL (12.0-16.0); Mean Corpuscular HGB Conc 30.4 g/dL (29.9-35.2); Mean Corpuscular Hemoglobin 30.2 pg (26.7-34.0); Mean Corpuscular Volume 99.3 fL (81.0-99.0); Platelet Count 261 10^3/uL (150-450); Red Blood Count 2.91 10^6/uL (4.20-5.40); Red Cell Distribution Width 19.7 % (11.0-15.0); White Blood Count 9.3 10^3/uL (4.0-11.0)
[2023-02-18 06:22] LABS: Eosinophils Absolute Manual 0.09 10^3/uL (0.00-0.70); Lymphocytes Absolute Manual 0.74 10^3/uL (1.20-3.80); Monocytes Absolute Manual 0.93 10^3/uL (0.30-0.80); Segmented Neut Absolute Manual 7.53 10^3/uL (1.4-6.5)
[2023-02-18] MEDS: LEVOTHYROXINE SODIUM 25 MCG TABLET PO (06:37)
[2023-02-18] MEDS: FUROSEMIDE 40 MG/4 ML VIAL IVP ×3 (06:37→21:49)
[2023-02-18] MEDS: SERTRALINE HCL 100 MG TABLET PO (09:01)
[2023-02-18] MEDS: OMEPRAZOLE 40 MG CAPSULE.DR PO (09:01)
[2023-02-18] MEDS: GABAPENTIN 100 MG CAPSULE 200 MG PO ×2 (09:01→20:21)
[2023-02-18] MEDS: FERROUS SULFATE 325 MG TABLET 650 MG PO (09:01)
[2023-02-18] MEDS: METOPROLOL TARTRATE 25 MG TABLET PO ×2 (09:01→20:21)
[2023-02-18] MEDS: ASPIRIN 81 MG TABLET.DR PO (09:01)
--- NOTE | 2023-02-18 09:08 | CM.NOTE ---
Spoke with Aliza in admissions at [facility], they are looking over pt's clinical and will call back if they are able to accept pt when ready for discharge.
--- NOTE | 2023-02-18 09:09 | CM.NOTE ---
Spoke with [facility] admissions this AM, they are aware pt has changed her mind.
--- NOTE | 2023-02-18 09:55 | XR_ITS ---
The [address] [address] Patient Name: ARTHUR YEN MRN: [id number] date: 1945 Sex: F Assigned Patient Location: [place] Current Patient Location: [place] Accession/Order Number: [id number] Exam Date: 02/18/2023 10:02 Report Date: 02/18/2023 11:02 At the request of: MORRO CESAR Procedure: XR chest 1V EXAM: XR chest 1V HISTORY: SOB COMPARISON: 01/09/2023 TECHNIQUE: AP portable FINDINGS: LUNGS: Low lung volumes. Left basilar infiltrate obscuring the hemidiaphragm VASCULATURE: No increased pulmonary vasculature. PLEURA: No pneumothorax. Bilateral pleural effusions, left greater than right CARDIAC: Stable cardiomegaly MEDIASTINUM: No visible mass or adenopathy. Median sternotomy wires. Aortic atherosclerosis BONES: No fracture or visible bone lesion. OTHER: Negative. XR/XR chest 1V IMPRESSION: Stable left basilar infiltrate Small bilateral pleural effusions, left greater than right Electronically authenticated by: GWENDOLYN MENDOZA Date: 02/18/2023 11:02
--- NOTE | 2023-02-18 10:50 | CM.NOTE ---
Rounds made with Dr. Cortez, no discharge for pt today. PT will evaluate pt today.
--- NOTE | 2023-02-18 10:54 | P.PN_ITS ---
patient also seen and evaluated by me. I agree with the above findings. Patient notes feeling better today. Progress Note: Subjective Subjective Interval history: Date/time of exam: 02/18/23 The patient is currently resting in bed visiting with her spouse at the bedside. Nursing reports that she was confused earlier this morning and was found to be hypoxic with a sat of 81% while on room air. After O2 was reapplied and her sats recovered her mentation recovered as well. Her at the bedside confirms that she intermittently becomes confused and it is usually associated with hypoxia. The patient had decent urine output and is -2.4 L today and down 1.5 kg in weight, but not yet to goal. She normally only uses oxygen supplementation at night and thus has some element of acute on chronic respiratory failure. We continue to suspect acute CHF exacerbation and as her renal function actually improved overnight after lasix administration, we will increase her Lasix dosing to 3 times daily today and continue to monitor her response and renal function closely. Cardiology has been consulted as the 2D Echo yesterday noted a hypermobile echogenic structure near the MV bioprosthetic valve. It is unclear if this represents redundant chordal structure or a vegetation or thrombus. The patient tolerated her blood transfusions well yesterday and her hemoglobin is stable this morning at 8.8. No evidence of acute active bleeding at this time. A fecal occult blood is still pending for possible occult bleeding. Patient's INR is back to goal (2.7 today, goal 2-3). We will ask pharmacy to dose the patient's Coumadin and resume that today. We will obtain daily INRs to monitor closely. (Correction to PMH on H&P, no previous CABG hx - only MVR) Exam Constitutional Vital Signs, click to edit/add: Last Vital Signs Temp 97.8 F 02/18/23 05:04 Pulse 80 02/18/23 10:04 Resp 16 02/18/23 05:04 BP 149/77 H 02/18/23 05:04 Pulse Ox 92 L 02/18/23 05:04 O2 Del Method Nasal Cannula 02/18/23 05:04 O2 Flow Rate 1 02/18/23 05:04 Common normals: no apparent distress, oriented x3, alert and well nourished General appearance: cooperative Orientation/consciousness: Yes awake HENDC Common normals: normocephalic, hearing grossly normal bilaterally and moist oral mucous membranes Face and sinus: facial abrasion (forehead and nose) Eye Common normals: EOMs intact bilaterally, conjunctivae normal and no scleral icterus General eye: other (L eyelid ecchymosis) Alignment: alignment normal Conjunctiva: conjunctiva(e) normal Chest Common normals: inspection of chest normal Chest: symmetrical chest wall rise Respiratory Common normals: normal respiratory effort, no retractions, no use of accessory muscles and clear to auscultation bilaterally Effort & inspection: able to speak in complete sentences Auscultation: clear to auscultation bilaterally and diminished lung sounds (Very diminished BLL) Cardio Common normals: no JVD, regular rate, regular rhythm, S1 normal heart sound, S2 normal heart sound, no gallops, no clicks, no rub and peripheral pulses 2+ throughout Heart sounds: murmur (HSM 3/6) GI Common normals: Normal to inspection, nondistended, normoactive bowel sounds present, soft to palpation, non-tender, no hepatosplenomegaly, no masses and no bruits Bladder/kidney exam: bladder normal to palpation Back & Pelvis Common normals: thoracic and lumbar spine normal to inspection Extremity Common normals: normal capillary refill and no calf tenderness General: edema (LLE tr edema, RLE 1-2+ - improved); no clubbing and no cyanosis Other: R Charcot foot deformity Neuro Lencho Coma Scale: GCS not evaluated Common normals: oriented x3, CN's II-XII intact bilaterally, moves all extremities and no focal motor deficits Sensorium/orientation: awake and alert Speech: speech normal Psych Common normals: mental status grossly normal, thought process normal, affect normal and activity/motor behavior normal Progress Note: Objective Labs Labs: Short CBC 02/17/23 02/18/23 Range/Units 17:34 04:42 WBC 9.3 (4.0-11.0) 10^3/uL Hgb 9.3 L 8.8 L (12.0-16.0) g/dL Hct 30.2 L 28.9 L (36.0-48.0) % Plt Count 261 (150-450) 10^3/uL BMP 02/18/23 04:42 Sodium 140 Potassium 4.4 Chloride 108 H Carbon Dioxide 24.9 BUN 53.0 H Creatinine 1.49 H Glucose 109 H Calcium 9.0 Liver Function 02/18/23 Range/Units 04:42 Total Bilirubin 0.9 (0.2-1.0) mg/dL AST 36 (15-37) U/L ALT 24 (14-59) U/L Alkaline Phosphatase 138 H (46-116) U/L Albumin 2.4 L (3.4-5.0) g/dL Imaging Chest x-ray: Attestation: I have reviewed the pertinent imaging results. Radiologist's impression: IMPRESSION: Stable left basilar infiltrate Small bilateral pleural effusions, left greater than right 2D Echo: Attestation: I have reviewed the pertinent imaging results. Radiologist's impression: CONCLUSION: 1. Global left ventricular systolic function is normal; visually estimated ejection fraction is 55 to 60% 2. Moderately increased left ventricular wall thickness 3. The right ventricle is poorly seen; appears normal in size with reduced systolic function 4. Left atrial dilatation 5. Mild to moderate tricuspid regurgitation 6. Severely elevated right ventricular systolic pressure; RVSP 85 mmHg 7. A bioprosthetic mitral valve is seen with normal Doppler flows; no prosthetic valve regurgitation 8. A hypermobile echogenic structure is seen close to the mitral valve; this likely is calcified, redundant, chordal structures. Differential diagnosis includes vegetation or thrombus. Consider transesophageal echocardiography if clinically warranted. 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 Wang, regarding possible epoetin administration * Daily CBC (2) Acute exacerbation of CHF (congestive heart failure): Assessment and Plan: ACUTE Laboratory Tests 02/17/23 02/18/23 05:00 04:42 NT-Pro-B Natriuret Pep 81944.0 H* 34217.0 H* * Some element of acute on chronic respiratory failure d/t CHF exacerbation suspected * Intermittently hypoxic this morning on RA, O2 reapplied for daytime use (above baseline O2 use) * Suspected w/ significantly elevated BNP, daytime hypoxia, and peripheral edema on exam * BNP result may reflect poor renal function, rather than acute CHF - monitor trend * CHF may be contributing to severe anemia (hemodilution) * Pt chronically uses O2 only at night but is currently on 2L during the day as well * Attempt to wean off O2 during the day per usual routine if possible * O2 if needed to keep sats above 90% * 2D echo 02/17/23 * LVEF 55-60% * Severely elevated RV pressure RVSP 88 mm/Hg * No regurge of bioprosthetic MVR * Hypermobile echogenic structure adjacent to MV, may represent redundant chordal structure vs vegetation or thrombus * Cardiology consult for further recommendation - SHIVAM? * U.O. only 2.4 L overnight * Continue to hold home bumex * Increase Lasix to 40 mg IVP TID today * Daily weights and strict I&O * Monitor renal function closely with increased diuretic administration * CMP, BNP in am (3) Hypokalemia: Assessment and Plan: ACUTE * Resolved - K+ 4.4 today * CMP daily to monitor w/ increased diuretic administration, but in setting of CKD4 (4) Hypothyroid: Assessment and Plan: ACUTE * TSH elevated in ED (4.497) * Reflex FT3 low at 1.37, FT4 WNL at 1.08 - mixed picture but subclinical hypothyroidism is suspected * May be contributing to weakness, falls, and anemia * Continue levothyroxine at 25 mcg/day in AM * Repeat TSH in 4-6 weeks outpatient (5) Frequent falls: Assessment and Plan: ACUTE ON CHRONIC * PT/OT consults * Ambulate with assistance (6) Weakness: Assessment and Plan: ACUTE ON CHRONIC * Multifactorial - Severe anemia, CHF exacerbation, hypokalemia, untreated hypothyroidism * See dx above * PT/OT eval and treat * Consider SNF placement at d/c for further strengthening (7) Traumatic open wound of left lower leg: Assessment and Plan: SUBACUTE * L spencer wound after fall several months ago w/ subsequent hematoma * Treated at [facility], but pt was unable to return in the last 1-2 weeks as scheduled d/t severe weakness * Not healing well, but does not clinically appear infected * Wound care C/S - follow wound recommendations for care (8) Open wound of right thigh: Assessment and Plan: CHRONIC * Burn wound from spilled coffee to R thigh * Follow wound care service recommendations for care (9) Chronic respiratory failure: Assessment and Plan: CHRONIC * Multifactorial * Home O2 at 2L only at noc * Attempt to wean off O2 during the day * Likely acute on chronic respiratory (CHF exacerbation/anemia) failure * O2 to keep sats above 90% (10) CKD (chronic kidney disease) stage 4, GFR 15-29 ml/min: Assessment and Plan: CHRONIC * Stable at CKD4 baseline * Risk for worsening renal fx w/ increased diuretic administration * CMP daily (11) Type 2 diabetes mellitus with hyperglycemia: Assessment and Plan: CHRONIC * ACHS glucometer checks * Med CC diet * Low dose insulin SS for correction * Pt experienced hypoglycemia overnight after receiving levemir at HS 02/16/23 - Continue to hold for now * A1C 4.9 today - may indicate overly aggressive glycemic control * check BS at 2 am to monitor for nighttime hypoglycemic events (12) A-fib: Assessment and Plan: CHRONIC * Resume home warfarin today as INR is 2.72 - currently at goal range of 2-3 * Pharmacy to dose * Continue home BB for rate control * Currently in SR, controlled rate * Tele monitoring
--- NOTE | 2023-02-18 11:46 | CM.NOTE ---
Aliza from [facility] called and they can accept pt when she is medically stable for discharge.
--- NOTE | 2023-02-18 12:09 | CM.NOTE ---
Updated pt and that [facility] can take pt when medically stable to discharge.
--- NOTE | 2023-02-18 15:04 | P.CACN_ITS ---
Discussed with MOSHGIACH Es Andrade, I agree with the assessment and plan. History of Present Illness History of Present Illness Consult date: 02/18/23 Requesting physician: Joie Rosenthal Consult reason: congestive heart failure Chief complaint: GENERAL WEAKNESS/ANEMIA/FREQUENT FALLS Narrative: This is a 77-year-old female patient with a complicated past medical history as outlined below including DM 2, A-fib, s/p MVR, CAD/CABG x 1, chronic respiratory failure (2L home O2 at [facility]), CKD 4, anemia of chronic disease; who presented to the ED yesterday evening complaining of severe weakness and inability to ambulate. She reports frequent falls with her most recent fall 2 days prior to arrival. She is on warfarin for her A-fib and mitral valve and has bruising to her face and extremities from falls. She denies any active bleeding. Work-up in the ED revealed anemia (Hgb 7.2), supratherapeutic INR (4.0), and stable to low normal CKD [address] of the head/face was unremarkable. A Hip/pelvis XR was also neg for acute fracture or dislocation. A CXR revealed equivocal small pleural effusions and associated atelectasis but was otherwise unremarkable. The patient was initially admitted to the hospital ist service in observation for weakness and frequent falls. At the time of my exam today the patient continues to complain of feeling quite weak. She reports 3-4 falls in the last month. Repeat hemoglobin this morning was very low at 5.7 and 2 units of PRBCs have been ordered. Again the patient denies melena, hematochezia, hematuria, or any other active bleeding. She does have chronically black stools from her iron supplementation but denies any tarry or foul-smelling stools. 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 She is unable to visualize her legs and thus cannot tell me if her peripheral edema is worse than usual. We do not clinically suspect DVT in setting of supratherapeutic INR. She also had a very elevated BNP this morning and we will obtain a 2D echo to assess for worsening heart failure. She will receive IVP Lasix in place of her usual home Bumex dosing for now. Her admission is being changed to inpatient due to her symptomatic anemia requiring blood transfusions, as well as hypokalemia and suspected CHF exacerbation that was noted this morning. PT and OT will evaluate the patient for possible SNF placement at discharge. Patient underwent an ECHO which found a hypermobile echogenic structure seen close mitral valve; likely calcified, redundant chordal structure. Differential diagnosis includes vegetation or thrombus. Cardiology was consulted for recommendations for management of this. Patient was seen and examined at bedside. She had been having worsening weakness along with frequent falls. She notes she continues to have weakness. She was also having shortness of breath. She was found to have acute diastolic heart failure. She was started on IV lasix, increased to TID today. Patient reports her breathing and leg swelling seems to be improving with this. Review of Systems ROS Constitutional Reports: fatigue; Denies: fever or chills Eyes Denies: change in vision or blurry vision Cardiovascular Reports: edema and shortness of breath with exertion; Denies: chest pain or palpitations Respiratory Reports: shortness of breath; Denies: cough Gastrointestinal Denies: nausea, vomiting or blood in stool Musculoskeletal Denies: extremity pain or joint pain Integumentary/Breast Reports: other (scattered abrasions and ecchymosis) Neurological Denies: dizziness or slurred speech Psychiatric Denies: anxiety or mood swings Endocrine Reports: fatigue Hematologic/Lymphatic Reports: easy bruising; Denies: easy bleeding Allergic/Immunologic Denies: hives or tongue swelling [facility] Medical History (Updated 02/18/23 @ 15:31 by ES ANDRADE APRN) A-fib ?I48.91 - Unspecified atrial fibrillation (ICD-10) Anemia ?D64.9 - Anemia, unspecified (ICD-10) Anemia in chronic kidney disease ?N18.9 - Chronic kidney disease, unspecified (ICD-10) ?D63.1 - Anemia in chronic kidney disease (ICD-10) Bleeding from wound ?T14.8XXA - Other injury of unspecified body region, initial encounter (ICD- 10) CAD (coronary artery disease) ?I25.10 - Atherosclerotic heart disease of [place] coronary artery without angina pectoris (ICD-10) Charcot foot due to diabetes mellitus ?E11.610 - Type 2 diabetes mellitus with diabetic neuropathic arthropathy (ICD-10) Chronic respiratory failure ?J96.10 - Chronic respiratory failure, unspecified whether with hypoxia or hypercapnia (ICD-10) CKD (chronic kidney disease) stage 4, GFR 15-29 ml/min ?N18.4 - Chronic kidney disease, stage 4 (severe) (ICD-10) Consolidation of left lower lobe of lung ?J18.1 - Lobar pneumonia, unspecified organism (ICD-10) Diabetes ?E11.9 - Type 2 diabetes mellitus without complications (ICD-10) Heart failure ?I50.9 - Heart failure, unspecified (ICD-10) Kidney disease ?N28.9 - Disorder of kidney and ureter, unspecified (ICD-10) Open wound of right thigh ?S71.101A - Unspecified open wound, right thigh, initial encounter (ICD-10) Type 2 diabetes mellitus with hyperglycemia ?E11.65 - Type 2 diabetes mellitus with hyperglycemia (ICD-10) Visit for wound care Surgical History (Updated 02/17/23 @ 10:20 by Joie Rosenthal NP) Heart valve replaced ?Z95.2 - Presence of prosthetic heart valve (ICD-10) History of mitral valve repair ?Z98.890 - Other specified postprocedural states (ICD-10) Hx of CABG ?Z95.1 - Presence of aortocoronary bypass graft (ICD-10) Family History (Updated 01/09/23 @ 23:22 by Flavia Jensen) Mother Family history of diabetes mellitus Father Family history of diabetes mellitus Family history of myocardial infarction Social History Within the past year, how often did you have a drink containing alcohol: never Within the past year, how often did you have six or more drinks on one occasion: never Score interpretation: A score less than 3 is consistent with normal alcohol consumption. 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 Known occupational exposures/hazards: No Highest level of school completed/degree received: high school graduate Do you want help with school or training: No Are you now , , , , never or living with a partner: In a typical week, how many times do you talk on the telephone with family, friends, or neighbors: 3 or more times per week How often do you get together with friends or relatives: 3 or more times per week How often do you attend spiritism or shinto services: 4 or more times per year Do you belong to any clubs or organizations such as spiritism groups unions, fraternal or athletic groups, or school groups: no Total score: 3 Score interpretation: A score of greater than or equal to 2 indicates the lowest level of social isolation. Little interest or pleasure in doing things: not at all Feeling down, depressed, or hopeless: not at all Feel stressed/tense/nervous/anxious/difficulty sleeping: only a little Due to disability, difficulty making decisions: No Do you think of yourself as: straight/heterosexual Gender Identity: female Meds Home Medications and Allergies Home Medications Medication Instructions Recorded Confirmed Type aspirin 81 mg tablet,delayed 81 mg PO DAILY 01/09/23 02/16/23 History release (Adult Aspirin Regimen) bumetanide 1 mg tablet 1 mg PO BID 01/09/23 02/16/23 History ferrous sulfate 325 mg (65 mg 650 mg PO DAILY 01/09/23 02/16/23 History iron) tablet (Feosol) gabapentin 100 mg capsule 200 mg PO BID 01/09/23 02/16/23 History insulin degludec 100 unit/mL (3 10 unit subcut QPM 01/09/23 02/16/23 History mL) subcutaneous pen (Tresiba FlexTouch U-100 insulin) insulin lispro 100 unit/mL 1 sliding scale dose subcut 01/09/23 02/16/23 History subcutaneous cartridge (Humalog USEASDIRECTD U-100 Insulin) metoprolol tartrate 25 mg tablet 25 mg PO BID 01/09/23 02/16/23 History pantoprazole 40 mg tablet,delayed 40 mg PO DAILY 01/09/23 02/16/23 History release sertraline 100 mg tablet 100 mg PO DAILY 01/09/23 02/16/23 History simvastatin 40 mg tablet 40 mg PO QPM 01/09/23 02/16/23 History warfarin 1 mg tablet 3 mg PO DAILY 01/09/23 02/16/23 History Allergies Allergy/AdvReac Type Severity Reaction Status Date / Time No Known Drug Allergies Allergy Verified 01/07/23 14:19 Exam Constitutional Vital Signs, click to edit/add: Last Vital Signs Temp 97.6 F 02/18/23 14:17 Pulse 71 02/18/23 14:17 Resp 16 02/18/23 14:17 BP 145/76 H 11/15/23 14:17 Pulse Ox 91 L 02/18/23 14:17 O2 Del Method Nasal Cannula 02/18/23 14:17 O2 Flow Rate 2 02/18/23 14:17 Common normals: no apparent distress, oriented x3 and alert General appearance: cooperative and comfortable [facility] Face and sinus: facial abrasion (nasal) and facial ecchymosis Nose: external nose normal and nares normal External ear: external ears normal and external ear abnormal Eye EOM: EOM abnormal Chest Common normals: inspection of chest normal Respiratory Common normals: normal respiratory effort, no use of accessory muscles and clear to auscultation bilaterally Cardio Common normals: regular rate, regular rhythm, S1 normal heart sound, S2 normal heart sound and no murmurs Rate: regular rate Rhythm: regular rhythm GI Common normals: Normal to inspection, nondistended, normoactive bowel sounds present Extremity General: edema (BLE +1,R>L) Neuro Common normals: oriented x3 and moves all extremities Sensorium/orientation: awake and alert Speech: speech normal Results Labs and Meds Lab results: Cardiac Enzymes 02/18/23 Range/Units 04:42 AST 36 (15-37) U/L Coagulation 02/18/23 Range/Units 04:42 PT 27.2 H (9.0-11.6) sec CBC 02/17/23 02/18/23 Range/Units 17:34 04:42 WBC 9.3 (4.0-11.0) 10^3/uL RBC 2.91 L (4.20-5.40) 10^6/uL Hgb 9.3 L 8.8 L (12.0-16.0) g/dL Hct 30.2 L 28.9 L (36.0-48.0) % Plt Count 261 (150-450) 10^3/uL Comprehensive Metabolic Panel 02/18/23 Range/Units 04:42 Sodium 140 (136-145) mmol/L Potassium 4.4 (3.5-5.1) mmol/L Chloride 108 H (98-107) mmol/L Carbon Dioxide 24.9 (21.0-32.0) mmol/L BUN 53.0 H (7.0-18.0) mg/dL Creatinine 1.49 H (0.55-1.02) mg/dL Glucose 109 H (74-106) mg/dL Calcium 9.0 (8.5-10.1) mg/dL AST 36 (15-37) U/L ALT 24 (14-59) U/L Alkaline Phosphatase 138 H (46-116) U/L Total Protein 6.0 L (6.4-8.2) g/dL Albumin 2.4 L (3.4-5.0) g/dL Intake and Output 02/17/23 02/18/23 02/18/23 23:59 07:59 15:59 Intake Total 550 / 1350 450 / 1350 740 / 740 Output Total 1100 / 1950 725 / 725 Balance 550 / -600 -650 / -600 Intake: Oral 450 / 450 740 / 740 Blood Product 350 / 700 Leukocyte Reduced Rbc Unit 350 / 350 [id number] IV 200 / 200 Potassium Chloride in Water 10 200 / 200 meq In 100 ml @ 100 mls/hr IV Q1H [facility] Rx#:[id number] Output: Urine 1100 / 1100 Urine Amount (Catheter) 725 / 725 Urethral 725 / 725 Imaging and Cardiology Echo: report reviewed Assessment and Plan Assessment and Plan (1) Acute exacerbation of CHF (congestive heart failure): (2) Symptomatic anemia: (3) Hypokalemia: (4) Hypothyroid: (5) Frequent falls: (6) Weakness: (7) Traumatic open wound of left lower leg: (8) Open wound of right thigh: (9) Chronic respiratory failure: (10) CKD (chronic kidney disease) stage 4, GFR 15-29 ml/min: (11) Type 2 diabetes mellitus with hyperglycemia: (12) A-fib: (13) Abnormal echocardiogram: Plan -She has a hx of a MVR in 2020. She presented this admission with weakness and she was found to have acute diastolic heart failure and anemia. -Her ECHO showed she had normal EF at 55-60%, severely elevated right sided pressures with her RVSP at 85 and a hypermobile echogenic structure is seen close to the mitral valve; this likely is calcified, redundant, chordal structures. Differential diagnosis includes vegetation or thrombus. No prior ECHO available to compare to. -When she was admitted her INR was supratherapeutic, low suspicion for thrombus. She has had no fevers or chills. Her WBC has been normal. Questionable if this is vegetation. Will check blood cultures x2. Allow for at least 48 hours for results to come back before discharging. -Continue diuresis until she is euvolemic. Agree with lasix 40mg TID at this time. Monitor daily weights, strict I/Os, maintain 1.5L fluid restriction. Discussed plan with Dr. Mart who agrees with plan. Also discussed with hospitalist ROSSI Salter and primary RN. Please call if any further questions or concerns. Thank you! Es Andrade APRN-ARCHIVES DIRECTOR [facility]
--- NOTE | 2023-02-18 16:03 | CM.NOTE ---
Sent updated notes to [facility].
[2023-02-18] MEDS: ATORVASTATIN CALCIUM 20 MG TABLET PO (20:21)
[2023-02-18] MEDS: INSULIN ASPART 300 UNIT/3 ML PEN SUBQ (21:50)
[2023-02-18] MEDS: WARFARIN SODIUM 3 MG TABLET PO (21:50)
[2023-02-19] VITALS (19 sets, daily range): BP systolic 125–133; BP diastolic 73–87; PULSE 63–75; RESP 18; TEMP 36.6–36.8; O2SAT 88–97
[2023-02-19] MEDS: FUROSEMIDE 40 MG/4 ML VIAL IVP ×2 (05:11→14:27)
[2023-02-19 05:24] LABS: Basophils Percent Auto 0.4 % (0.2-2.0); Eosinophils Absolute Auto 0.2 10^3/uL (0.0-0.7); Hematocrit 26.8 % (36.0-48.0); Hemoglobin 8.1 g/dL (12.0-16.0); Immature Granulocytes Abs Auto 0.03 10^3/uL (0.00-0.03); Immature Granulocytes Pct Auto 0.4 % (0.0-0.5); Lymphocytes Absolute Auto 0.7 10^3/uL (1.2-3.8); Lymphocytes Percent Auto 8.6 % (20.5-60.0); Mean Corpuscular HGB Conc 30.2 g/dL (29.9-35.2); Mean Corpuscular Hemoglobin 30.5 pg (26.7-34.0); Mean Corpuscular Volume 100.8 fL (81.0-99.0); Mean Platelet Volume 10.6 fL (9.5-13.5); Monocytes Absolute Auto 0.7 10^3/uL (0.3-0.8); Monocytes Percent Auto 8.6 % (1.7-12.0); Neutrophils Absolute Auto 6.3 10^3/uL (1.4-6.5); Platelet Count 245 10^3/uL (150-450); Red Blood Count 2.66 10^6/uL (4.20-5.40); Red Cell Distribution Width 18.7 % (11.0-15.0); White Blood Count 7.9 10^3/uL (4.0-11.0)
[2023-02-19] MEDS: LEVOTHYROXINE SODIUM 25 MCG TABLET PO (05:42)
[2023-02-19 05:46] LABS: Alanine Aminotransferase 8 U/L (14-59); Albumin Globulin Ratio 0.7; Albumin Level 2.3 g/dL (3.4-5.0); Alkaline Phosphatase 131 U/L (46-116); Anion Gap 11.1; Aspartate Amino Transferase 27 U/L (15-37); BUN Creatinine Ratio 37.1; Bilirubin Total 0.7 mg/dL (0.2-1.0); Calcium 8.9 mg/dL (8.5-10.1); Carbon Dioxide 27.9 mmol/L (21.0-32.0); Chloride 106 mmol/L (98-107); Estimated GFR (African America 44 (>=60); Estimated GFR (Non-African Ame 36 (>=60); Globulin 3.3 g/dL; Glucose 191 mg/dL (74-106); Sodium 141 mmol/L (136-145); Total Protein 5.6 g/dL (6.4-8.2)
[2023-02-19 06:26] LABS: INR 2.16; Prothrombin Time 21.9 sec (9.0-11.6)
[2023-02-19] MEDS: INSULIN ASPART 300 UNIT/3 ML PEN SUBQ ×2 (09:11→11:50)
[2023-02-19] MEDS: METOPROLOL TARTRATE 25 MG TABLET PO ×2 (09:13→23:54)
[2023-02-19] MEDS: SERTRALINE HCL 100 MG TABLET PO (09:13)
[2023-02-19] MEDS: OMEPRAZOLE 40 MG CAPSULE.DR PO (09:13)
[2023-02-19] MEDS: ASPIRIN 81 MG TABLET.DR PO (09:13)
[2023-02-19] MEDS: FERROUS SULFATE 325 MG TABLET 650 MG PO (09:13)
[2023-02-19] MEDS: GABAPENTIN 100 MG CAPSULE 200 MG PO ×2 (09:13→23:54)
--- NOTE | 2023-02-19 10:30 | RESP.RT ---
decreased to 1 LPM
[2023-02-19 11:49] LABS: Glucometer 214 mg/dL (74-106)
--- NOTE | 2023-02-19 11:52 | CM.NOTE ---
Rounds made with Dr. Cortez, no discharge today. Awaiting blood culture results.
--- NOTE | 2023-02-19 13:00 | CM.NOTE ---
2nd Notice of Important Message From Medicare discussed with pt, pt denies any questions or concerns.
--- NOTE | 2023-02-19 13:34 | PT.DAILY ---
Physical Therapy Daily Note PT Daily Note/Assess Start: 02/19/23 13:04 Freq: Status: Active Protocol: Document 02/19/23 13:05 AARON (Rec: 02/19/23 13:34 AARON [id number]) Physical Therapy Daily Note/Assessment Time In/Time Out Time In 12:45 Time Out 13:05 Pain In Pain N/A Pain Out Pain N/A Subjective Subjective Pt supine upon arrival. Eyes closed but easily aroused. Agrees to PT. Therapeutic Exercise Time Therapeutic Exercise Minutes (minutes) 3 Therapeutic Exercise Units 0 Therapeutic Exercise Treatment Therapeutic Exercise Treatment Seated AP, LAQ and marches 10x ea at EOB with Wade to maintain seated balance. Tends to lean to her right. Therapeutic Activity Time Therapeutic Activity Minutes (minutes) 8 Therapeutic Activity Units 1 Therapeutic Activity Treatment Bed Mobility Ability Maximum Assist Therapeutic Activity Comments Pt performs supine>transfer with MaxA to advance bilat LEs and upper body to sit EOB. Pt sits EOB 6 min with occ Wade to maintain seated balance due to R lateral lean. With vc and Wade pt is able to correct . Pt performs seated LE strengthening ex while sitting EOB. Pt does have a waffle pad on her bed which could be affecting seated balance as pt is unable to keep both feet on the floor at this time. MaxA to performs sit>supine and total assist to scoot pt up in bed. Pt remains supine upon completion with call light in reach and visitor present. Total Physical Therapy Time Total Therapy Minutes 11 Total Physical Therapy Units 1 Summary Daily Note Summary Improved sitting balance today at EOB - Wade today.
--- NOTE | 2023-02-19 14:06 | CM.NOTE ---
Updates sent to [place].
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
--- NOTE | 2023-02-19 21:47 | PC.NURSE ---
pt ahs calcium deposit on left eye from previous surgery, right eye is cloudy
[2023-02-19] MEDS: DOCUSATE SODIUM 100 MG CAPSULE PO (23:53)
[2023-02-19] MEDS: ATORVASTATIN CALCIUM 20 MG TABLET PO (23:53)
[2023-02-19] MEDS: WARFARIN SODIUM 3 MG TABLET PO (23:59)
[2023-02-20] VITALS (13 sets, daily range): BP systolic 126–153; BP diastolic 71–87; PULSE 63–76; RESP 18; TEMP 36.4–36.5; O2SAT 91–93
[2023-02-20 05:30] LABS: Basophils Percent Auto 0.5 % (0.2-2.0); Eosinophils Absolute Auto 0.2 10^3/uL (0.0-0.7); Hematocrit 27.2 % (36.0-48.0); Hemoglobin 8.3 g/dL (12.0-16.0); Immature Granulocytes Abs Auto 0.03 10^3/uL (0.00-0.03); Immature Granulocytes Pct Auto 0.3 % (0.0-0.5); Lymphocytes Absolute Auto 0.8 10^3/uL (1.2-3.8); Mean Corpuscular HGB Conc 30.5 g/dL (29.9-35.2); Mean Corpuscular Hemoglobin 30.2 pg (26.7-34.0); Mean Corpuscular Volume 98.9 fL (81.0-99.0); Mean Platelet Volume 10.9 fL (9.5-13.5); Monocytes Absolute Auto 0.7 10^3/uL (0.3-0.8); Monocytes Percent Auto 8.3 % (1.7-12.0); Neutrophils Absolute Auto 6.9 10^3/uL (1.4-6.5); Neutrophils Percent Auto 79.9 % (43.0-75.0); Platelet Count 242 10^3/uL (150-450); Red Blood Count 2.75 10^6/uL (4.20-5.40); Red Cell Distribution Width 17.6 % (11.0-15.0); White Blood Count 8.6 10^3/uL (4.0-11.0)
[2023-02-20 05:34] LABS: Prothrombin Time 21.3 sec (9.0-11.6)
[2023-02-20 05:46] LABS: Alanine Aminotransferase 20 U/L (14-59); Albumin Globulin Ratio 0.7; Albumin Level 2.3 g/dL (3.4-5.0); Alkaline Phosphatase 132 U/L (46-116); Anion Gap 10.4; Aspartate Amino Transferase 25 U/L (15-37); BUN Creatinine Ratio 35.5; Bilirubin Total 0.8 mg/dL (0.2-1.0); Calcium 8.9 mg/dL (8.5-10.1); Carbon Dioxide 28.4 mmol/L (21.0-32.0); Chloride 104 mmol/L (98-107); Estimated GFR (African America 45 (>=60); Estimated GFR (Non-African Ame 37 (>=60); Globulin 3.4 g/dL; Glucose 187 mg/dL (74-106); Potassium 3.8 mmol/L (3.5-5.1); Sodium 139 mmol/L (136-145); Total Protein 5.7 g/dL (6.4-8.2)
[2023-02-20] MEDS: FUROSEMIDE 40 MG/4 ML VIAL IVP ×2 (06:48)
[2023-02-20] MEDS: LEVOTHYROXINE SODIUM 25 MCG TABLET PO (06:53)
[2023-02-20] MEDS: INSULIN ASPART 300 UNIT/3 ML PEN SUBQ ×3 (08:13→11:25)
--- NOTE | 2023-02-20 08:40 | XR_ITS ---
The [address] [address] Patient Name: ARTHUR YEN MRN: [id number] date: 1945 Sex: F Assigned Patient Location: [place] Current Patient Location: [place] Accession/Order Number: [id number] Exam Date: 02/20/2023 08:50 Report Date: 02/20/2023 09:18 At the request of: MORRO CESAR Procedure: XR chest 1V EXAM: XR chest 1V HISTORY: Hypoxia, CHF exac COMPARISON: 02/18/2023 TECHNIQUE: AP portable FINDINGS: LUNGS: Low lung volumes. Left basilar infiltrate obscures the hemidiaphragm VASCULATURE: No increased pulmonary vasculature. PLEURA: No pneumothorax. Blunting of both lateral costophrenic angles, small bilateral pleural effusions CARDIAC: No cardiomegaly or cardiac silhouette abnormality. MEDIASTINUM: No visible mass or adenopathy. BONES: No fracture or visible bone lesion. OTHER: Negative. XR/XR chest 1V IMPRESSION: Stable left basilar infiltrate and small bilateral pleural effusions Electronically authenticated by: GWENDOLYN MENDOZA Date: 02/20/2023 09:18
[2023-02-20] MEDS: GABAPENTIN 100 MG CAPSULE 200 MG PO (09:12)
[2023-02-20] MEDS: ASPIRIN 81 MG TABLET.DR PO (09:12)
[2023-02-20] MEDS: FERROUS SULFATE 325 MG TABLET 650 MG PO (09:12)
[2023-02-20] MEDS: OMEPRAZOLE 40 MG CAPSULE.DR PO (09:12)
[2023-02-20] MEDS: SERTRALINE HCL 100 MG TABLET PO (09:12)
[2023-02-20] MEDS: METOPROLOL TARTRATE 25 MG TABLET PO (09:12)
--- NOTE | 2023-02-20 11:11 | P.DS_ITS ---
Patient was seen and examined at the time of discharge by me. I also reviewed labs/radiology findings. I agree with the above findings and plan of care. Discharge today to [facility]. Close outpatient follow up. With Blood cultures being negative x44 hours very low suspicion that Echo findings are vegetation. She is stable for discharge. DS: Providers Provider Date of admission: 02/17/23 09:58 Primary care physician: MEGAN VALLES Consults: 02/17/23 09:58 Occupational Therapy Eval and Treat Routine Reason for consultation: Frequent falls, weakness Has provider been notified: No Physical Therapy Eval and Treat Routine Reason for consultation: Frequent falls, weakness Has provider been notified: No 02/17/23 10:03 Consult to Wound Care Routine Consulting Provider: Pedro Gallardo Reason for consultation: LLE spencer wound Has provider been notified: No 02/18/23 10:24 Consult to Cardiology Routine Reason for consultation: MV adjacent echogenic structure on TTE. ?? SHIVAM vs chronic issue Has provider been notified: No Discharging clinician: Joie Rosenthal DS: Diagnosis Discharge Diagnosis (1) Acute exacerbation of CHF (congestive heart failure): (2) Symptomatic anemia: (3) Hypokalemia: (4) Abnormal echocardiogram: (5) Hypothyroid: (6) Frequent falls: (7) Weakness: (8) Traumatic open wound of left lower leg: (9) Open wound of right thigh: (10) Chronic respiratory failure: (11) CKD (chronic kidney disease) stage 4, GFR 15-29 ml/min: (12) Type 2 diabetes mellitus with hyperglycemia: (13) A-fib: DS: Summary Hospital Course Hospital Course: The pt was admitted with symptomatic anemia, supratherapeutic INR, frequent falls, and weakness. She was subsequently found to be in CHF exacerbation and hypokalemic. She was treated with IVPB transfusions x 2 units and IVP Lasix dosing. Her hgb was monitored closely and remained stable after PRBC transfusions. No evidence of active bleeding was noted despite supratherapeutic INR and we suspect CKD4 as the etiology of her low hgb. Her warfarin was held until her INR resolved to goal and her hgb was confirmed as stable and was then resumed. Her intake and output was closely monitored and she was negative 5.5 liters and nearly 10 kg by the time of discharge. Her peripheral edema was nearly resolved (at baseline chronic edema) and her CXR small pleural effusions showed mild improvement. A 2D Echo obtained during this admission revealed preserved LVEF of 55-60%, but severe RV pressure and an echogenic, hypermobile structure adjacent to her bioprosthetic MVR. Cardiology was consulted to assess this structure as thrombus and/or vegetations are possible interpretations of the echo. As she was supratherapeutic with her coumadin, a thrombus was not clinically suspected. Despite no leukocytosis or fever, blood cultures x 2 were drawn to ensure no bacteremia is present. These have remained negative x 44 hrs and previous blood cultures drawn on 01/09/23 were neg x 5 days. Bacteremia is not clinically suspected and antibiotics are not indicated. As she now appears euvolemic and her hgb has remained stable above 8, she is being discharged to a local SNF for further rehab strengthening in stable condition. Her home bumex dosing has been resumed at discharge. The SNF has been instructed to obtain daily weights x 2 weeks and monitor for weight gain of more than 3#/day or 5#/week. She should follow up with her PCP/SNF provider in 3-5 days, her flight purser in 1-2 weeks to discuss the echo results and if a SHIVAM is indicated, and her head of sales in 2-4 weeks to discuss chronic anemia in setting of CKD4 and if Epoetin is indicated. Time Spent with Patient Time attestation: Total time spent providing and/or coordinating discharge services: Time spent: greater than 30 minutes Specific discharge activities: Physical exam, discussion of discharge plan, questions answered. Exam Constitutional Vital Signs, click to edit/add: Last Vital Signs Temp 97.7 F 02/20/23 05:04 Pulse 76 02/20/23 09:49 Resp 18 02/20/23 07:00 BP 153/81 H 02/20/23 06:48 Pulse Ox 91 L 02/20/23 05:04 O2 Del Method Nasal Cannula 02/20/23 05:04 O2 Flow Rate 1 02/20/23 05:04 Common normals: no apparent distress, oriented x3 and alert General appearance: cooperative Orientation/consciousness: Yes awake HENIL Common normals: normocephalic and head/scalp atraumatic Head and scalp: normocephalic and atraumatic Eye Common normals: EOMs intact bilaterally and no scleral icterus Visual acuity: other (Blind L eye, nearly blind R eye) Conjunctiva: other (Chronic calcifications/scarring to L eye) Neck & C-Spine Common normals: no JVD Respiratory Common normals: normal respiratory effort, no use of accessory muscles and clear to auscultation bilaterally Effort & inspection: able to speak in complete sentences and symmetric chest movement Auscultation: diminished lung sounds (BLL) Cardio Common normals: no JVD, regular rate, regular rhythm, S1 normal heart sound, S2 normal heart sound and peripheral pulses 2+ throughout Heart sounds: murmur (HSM 3/6) GI Common normals: Normal to inspection, nondistended, normoactive bowel sounds present, soft to palpation and non-tender Palpation: soft Bladder/kidney exam: bladder normal to palpation Extremity Common normals: normal to inspection, full ROM and normal capillary refill General: edema (Tr-1+ R instep/ankle, Tr L ankle); no clubbing and no cyanosis Neuro Common normals: moves all extremities, no focal motor deficits and no sensory deficits noted Speech: speech normal Psych Common normals: mental status grossly normal DS: Data Data Completed and Pending Labs on day of discharge: Labs from last 24 hours 02/20/23 02/19/23 04:23 11:48 WBC 8.6 RBC 2.75 L Hgb 8.3 L Hct 27.2 L MCV 98.9 MCH 30.2 MCHC 30.5 RDW 17.6 H Plt Count 242 MPV 10.9 Neut % (Auto) 79.9 H Lymph % (Auto) 9.0 L Hernando % (Auto) 8.3 Eos % (Auto) 2.0 Baso % (Auto) 0.5 Neut # (Auto) 6.9 H Lymph # (Auto) 0.8 L Hernando # (Auto) 0.7 Eos # (Auto) 0.2 Baso # (Auto) 0.0 Abs Immat Gran (auto) 0.03 Imm/Tot Granulo (auto) 0.3 PT 21.3 H INR 2.10 Sodium 139 Potassium 3.8 Chloride 104 Carbon Dioxide 28.4 Anion Gap 10.4 BUN 49.0 H Creatinine 1.38 H Est GFR ( Amer) 45 L Est GFR (Non-Af Amer) 37 L BUN/Creatinine Ratio 35.5 Glucose 187 H Calcium 8.9 Total Bilirubin 0.8 AST 25 ALT 20 Alkaline Phosphatase 132 H Total Protein 5.7 L Albumin 2.3 L Globulin 3.4 Albumin/Globulin Ratio 0.7 POC Glucose 214 H Imaging Chest x-ray: Radiologist's impression: 02/16/23 IMPRESSION: Small left, possible small right pleural effusion and likely adjacent atelectasis. 02/18/23 IMPRESSION: Stable left basilar infiltrate Small bilateral pleural effusions, left greater than right 02/20/23 IMPRESSION: Stable left basilar infiltrate and small bilateral pleural effusions CT facial bones: Radiologist's impression: 02/16/23 IMPRESSION: No acute facial fracture. CT scan - head: Radiologist's impression: 02/16/23 IMPRESSION: 1. No acute intracranial abnormality. 2. Atrophy. Pelvis x-ray: Radiologist's impression: 02/16/23 IMPRESSION: No acute findings. 2D Echo: Radiologist's impression: 02/17/23 CONCLUSION: 1. Global left ventricular systolic function is normal; visually estimated ejection fraction is 55 to 60% 2. Moderately increased left ventricular wall thickness 3. The right ventricle is poorly seen; appears normal in size with reduced systolic function 4. Left atrial dilatation 5. Mild to moderate tricuspid regurgitation 6. Severely elevated right ventricular systolic pressure; RVSP 85 mmHg 7. A bioprosthetic mitral valve is seen with normal Doppler flows; no prosthetic valve regurgitation 8. A hypermobile echogenic structure is seen close to the mitral valve; this likely is calcified, redundant, chordal structures. Differential diagnosis includes vegetation or thrombus. Consider transesophageal echocardiography if clinically warranted. Discharge Plan Discharge Disposition: [facility] Condition: Fair Discharge Medications: New levothyroxine 25 mcg Tablet 25 mcg PO ACB Qty: 30 0RF Continued bumetanide 1 mg tablet 1 mg PO BID gabapentin 100 mg capsule 200 mg PO BID metoprolol tartrate 25 mg tablet 25 mg PO BID pantoprazole 40 mg tablet,delayed release (DR/EC) 40 mg PO DAILY sertraline 100 mg tablet 100 mg PO DAILY simvastatin 40 mg tablet 40 mg PO QPM warfarin 1 mg tablet 3 mg PO DAILY insulin degludec [Tresiba FlexTouch U-100] 100 unit/mL (3 mL) insulin pen 10 unit subcut QPM Humalog U-100 Insulin 100 unit/mL cartridge 1 sliding scale dose subcut USEASDIRECTD aspirin [Adult Aspirin Regimen] 81 mg tablet,delayed release (DR/EC) 81 mg PO DAILY ferrous sulfate [Feosol] 325 mg (65 mg iron) tablet 650 mg PO DAILY Activity Restrictions/Additional Instructions: - Repeat TSH, FT3, FT4 in 4-6 weeks - Obtain INR weekly x 2 weeks, then biweekly x 4 weeks, then monthly thereafter. PCP or SNF provider to manage warfarin. - Obtain BMP (renal fx, hypokalemia) and CBC (anemia) weekly x 2 weeks. Results to PCP/SNF provider - Obtain daily weights x 2 weeks, then weekly. Contact PCP/SNF provider if greater than 3#/day or 5#/week weight gain - O2 at 2L 24/ (may wean down to 1L during the day - keep sats > 90%) - OZZY ewing during the day Forms: Portal Instructions Follow Up Appointments: - Follow up with Dr Wang, Nephrology, in 2-4 weeks - discuss possible epoetin administration for chronic anemia - Follow up with Dr Prince Vega, Cardiology, in 1-2 weeks - discuss 2D Echo results: severe RV pressure, MV adjacent echogenic structure & possible SHIVAM follow up - Follow up w/ PCP/SNF provider in 3-5 days
--- NOTE | 2023-02-20 12:00 | CM.NOTE ---
Rounds made with ed Olsen to discharge to [facility] for skilled therapy today.
--- NOTE | 2023-02-20 12:08 | CM.NOTE ---
Spoke with Anabelle with transport time for pt, pt will go with [facility] and be picked up around 3:00. faxed discharge summary and medication list.
--- NOTE | 2023-02-20 14:53 | CM.NOTE ---
HENS entered into computer for [facility].
--- NOTE | 2023-02-23 16:05 | CM.NOTE ---
Spoke with Svetlana dasilva [facility] to clarify pt went to long term facility, faxed discharge summary.
== END 2023-02-20 15:05 | DRG 698 ==
LOC: ER 16:55 → MS 21:37
PROVIDERS: Family Medicine; Physician Assistant; Admitting Provider Internal Medicine; Emergency Provider Emergency Medicine; PCP Family Medicine; Visit Provider Nurse Practitioner
DX: E11.22 Type 2 diabetes mellitus with diabetic chronic kidney disease (principal); I50.33 Acute on chronic diastolic (congestive) heart failure; J96.21 Acute and chronic respiratory failure with hypoxia; I48.20 Chronic atrial fibrillation, unspecified; N18.4 Chronic kidney disease, stage 4 (severe); D63.1 Anemia in chronic kidney disease; E11.610 Type 2 diabetes mellitus with diabetic neuropathic arthropathy; E87.6 Hypokalemia; I25.10 Atherosclerotic heart disease of native coronary artery without angina pectoris; E11.65 Type 2 diabetes mellitus with hyperglycemia; S00.12XA Contusion of left eyelid and periocular area, initial encounter; W19.XXXA Unspecified fall, initial encounter; S81.802D Unspecified open wound, left lower leg, subsequent encounter; S71.101D Unspecified open wound, right thigh, subsequent encounter; H54.8 Legal blindness, as defined in USA; R26.89 Other abnormalities of gait and mobility; Z95.3 Presence of xenogenic heart valve; E03.9 Hypothyroidism, unspecified; Z79.82 Long term (current) use of aspirin; Z79.01 Long term (current) use of anticoagulants; Z79.4 Long term (current) use of insulin; Z79.899 Other long term (current) drug therapy; Z95.1 Presence of aortocoronary bypass graft; Z99.81 Dependence on supplemental oxygen; Z91.81 History of falling; Z83.3 Family history of diabetes mellitus; Z82.49 Family history of ischemic heart disease and other diseases of the circulatory system
CPT/HCPCS: 36415; 36430; 51702; 70450; 70486; 71045; 72170; 80048; 80053; 81003; 82948; 83036; 83605; 83735; 83880; 84100; 84439; 84443; 84481; 84484; 85014; 85018; 85025; 85027; 85610; 86850; 86900; 86901; 87040; 90662; 93005; 93306; 94761; 96361; 96365; 96366; 96375; 96376; 97161; 97165; 97530; 97535; 99285; G0008; G0328; G0378; P9016; Q3014

== ENCOUNTER 2023-05-20 12:27 | Observation (INO) | payer MEDICARE, OTHER, SELFPAY ==
[2023-05-20] VITALS (20 sets, daily range): BP systolic 105–137; BP diastolic 61–81; PULSE 91–100; RESP 12–32; TEMP 36.3–36.9; O2SAT 82–100; BMI 35.3; BMI 27.4
--- OUTSIDE RECORDS SUMMARY | 2023-05-20 12:36 | XMS_ITS | CCD ---
Author Name Unknown Address [id number] [place] [address] Organization [facility] Care Team Providers Care Electronic Assembly Name Role Phone STANFORD SINGH Unavailable Unavailable SELF, REFERRED Unavailable Unavailable SELF, REFERRED Unavailable Unavailable MO Unavailable Unavailable STEPHEN, FELIPE R Unavailable Unavailable STEPHEN, FELIPE R Unavailable Unavailable STEPHEN, FELIPE R Unavailable Unavailable STEPHEN, FELIPE R Unavailable Unavailable UNKNOWN, PHYSICIAN Unavailable Unavailable UNKNOWN, PHYSICIAN Unavailable Unavailable REENA, DR THERESA Alas Primary Care Unavailable PAY, DR SANFORD Attending Unavailable PAY, DR SANFORD Consulting Unavailable PAY, DR SANFORD Admitting Unavailable Zimmerman, [place] Consulting Unavailable CHARLEY QUINTERO Consulting Unavailable DR THERESA VALLES Primary Care Unavailable CHARLEY QUINTERO Admitting Unavailable CHARLEY QUINTERO Attending Unavailable DR THERESA VALLES Primary Care Unavailable CHARLEY QUINTERO Admitting Unavailable CHARLEY QUINTERO Attending Unavailable CHARLEY QUINTERO Consulting Unavailable Theresa Valles MD Primary Care Provider [phone] Nawaf CRUZN.HEAD OF PARTNER DEVELOPMENT, Sharon Unavailable [phone] Micaela Prince Unavailable Theresa Valles MD Primary Care Provider [phone] Nawaf WAGNER.HEAD OF PARTNER DEVELOPMENT, Sharon Unavailable Theresa Valles MD Primary Care Provider [phone] Theresa Valles MD Primary Care Provider Theresa Valles MD Unavailable [phone] THERESA VALLES Attending Unavailable Theresa Valles MD Primary Care Provider Theresa Valles Primary Care Unavailable Charley Quintero Attending Unavailable Charley Quintero Admitting Unavailable VALONE JR, EFRAIN L Attending Unavailable VALONE JR, EFRAIN L Referring Unavailable WONDERLY, THERESA B Primary Care Unavailable VALONE JR, EFRAIN L Referring Unavailable WONDERLY, THERESA B Primary Care Unavailable VALONE JR, EFRAIN L Referring Unavailable WONDERLY, THERESA B Primary Care Unavailable VALONE JR, EFRAIN L Referring Unavailable WONDERLY, THERESA B Primary Care Unavailable VALONE JR, EFRAIN L Referring Unavailable WONDERLY, THERESA B Primary Care Unavailable VALONE JR, EFRAIN L Referring Unavailable WONDERLY, THERESA B Primary Care Unavailable VALONE JR, EFRAIN L Referring Unavailable WONDERLY, THERESA Alas Primary Care Unavailable KARTHIK ACKERMAN Referring Unavailabl e WONDERLY, THERESA B Primary Care Unavailable VALONE JR, EFRAIN L Referring Unavailable WONDERLY, THERESA B Primary Care Unavailable WONDERLY, THERESA B Referring Unavailable WONDERLY, THERESA Alas Primary Care Unavailable Allergies Allergy Classification Reported Allergen(s) Allergy Type Date of Onset Reaction(s) Facility (6 sources) heparin Drug Allergy 1 Other: See Comments, Other [facility] Work Phone: (2 sources) Amoxicillin / Clavulanate Drug Allergy Unknown [facility] Other (7 sources) Potassium Chloride Drug Allergy Unknown [facility] Other (7 sources) Darvocet-N 100 Drug allergy Unknown [facility] [place] Other (5 sources) Amoxicillin / Clavulanate Drug Allergy Unknown [facility] Other (2 sources) Potassium Chloride Drug Allergy 2 Other [facility] (2 sources) Propoxyphene Drug Allergy 2 Hives [facility] (2 sources) Amoxicillin-Pot Clavulanate Drug Allergy 2 GI intolerance [facility] (1 source) Acetaminophen Drug Allergy 3 [facility] (1 source) Amoxicillin Drug Allergy 3 [facility] (1 source) Clavulanate Drug Allergy 3 [facility] (1 source) Potassium Chloride Drug Allergy 3 [facility] (1 source) Propoxyphene Drug Allergy 3 [facility] Medications Current Medications Medication Drug Class(es) Dates Sig (Normalized) Sig (Original) bumetanide 1 mg oral tablet (14 sources) Loop Diuretic Start: 09-27-2020 End: 02-05-2024 take 1 tablet by mouth in the morning bumetanide (Bumex) 1 MG tablet Indications: Heart failure, unspecified HF chronicity, unspecified heart failure type (CMS/HCC) Take 1 tablet (1 mg) by mouth in the morning and 1 tablet (1 mg) before bedtime. 180 tablet 3 02/05/2023 02/05/2024 Active take 1 tablet by binta th every twenty-four hours Bumetanide 1 MG 1 tablet Orally Once a day Active Comment on above: Take 1 tablet by binta th twice daily. calcium carbonate 1250 mg / cholecalciferol 200 unt oral tablet (1 source) Vitamin D take 1 tablet by mouth once in the morning Calcium Carbonate-Vitamin D (Oyster Shell Calcium/D) 500-5 MG-MCG tablet Take 1 tablet by mouth in the morning. 0 Active Continuous Blood Gluc Phlebotomy Services Technician (FreeStyle Tania 2 [place]) device (2 sources) Start: 023 Continuous Blood Gluc Phlebotomy Services Technician (FreeStyle Tania 2 [place]) device USE DIRECTED FOR 365 0 05/22/2022 Active Continuous Blood Gluc Sensor (FreeStyle Tania 2 Sensor) misc (2 sources) Start: 023 Continuous Blood Gluc Sensor (FreeStyle Tania 2 Sensor) misc 1 Units every 14 (fourteen) days. 0 12/23/2022 Active ergocalciferol 1.25 mg oral capsule (2 sources) Provitamin D2 Compound take 1 capsule by mouth every week ergocalciferol (Vitamin D-2) 1.25 MG (56040 UT) capsule Take 50,000 Units by mouth 1 (one) time per week. 0 Active ferrous sulfate 325 mg oral tablet (14 sources) take 1 tablet by mouth once daily at breakfast ferrous sulfate 325 (65 FE) mg tablet Take 650 mg by mouth daily with breakfast. 0 Active take 325 mg by mouth in the morn ing Ferrous Sulfate (IRON PO) Take 325 mg by mouth in the morning. 0 Active take 2 tablets by mouth in the m orning Ferrous Sulfate (IRON PO) Take 2 tablets by mouth in the morning. 0 Active Ferrous Sulfate 325 MG as directed Orally Not-Taking/PRN take 130 mg by mouth once daily ferrous sulfate (IRON ORAL) Take 130 mg by mouth once daily. 0 Active Comment on above: Take 130 mg by mouth once daily. FreeStyle Tania 2 [place] - (7 sources) Start: 04-23-2022 FreeStyle Tania 2 [place] - as directed in vitro 5 x day for 365 days Z79.4 Apr, Active FreeStyle Tania 2 [place] - as directed in vitro 5 x day for 365 days Z79.4 Active FreeStyle Tania 2 Sensor - (7 sources) Start: 04-23-2022 FreeStyle Libr e 2 Sensor - as directed in vitro q 14 days for 84 days Z79.4 Apr, Active FreeStyle Tania 2 Sensor - CHANGE EVERY 14 DAYS DIRECTED IS A 42 DAY SUPPLY BUT INSURANCE WONT BILL THAT WAY for 42 Active FreeStyle Tania 2 Sensor - as directed in vitro q 14 days for 84 days Z79.4 Active gabapentin 100 mg oral capsule (13 sources) Anti-epileptic Agent Start: 08-24-2020 take 2 capsules by mouth in the morning gabapentin (Neurontin) 100 MG capsule Indications: Nephropathy due to secondary diabetes mellitus (CMS/HCC) Take 2 capsules (200 mg) by mouth in the morning and 2 capsules (200 mg) before bedtime. 360 capsule 0 09/24/2022 Active Comment on above: Take 2 capsules by m outh twice daily for 30 days. 3 ml insulin aspart, human 100 unt/ml pen injector (2 sources) Insulin Analog insulin aspart (NovoLOG FLEXPEN) 100 UNIT/ML pen Inject under the skin 3 (three) times a day before meals. Per sliding scale 0 Active 3 ml insulin degludec 100 unt/ml pen injector (5 sources) Insulin Analog Start: 10-22-2022 Tresiba FlexTouch 100 UNIT/ML 10 u Subcutaneous daily for 90 days Oct, Active inject 10 [IU] by mckeon bcutaneous injection in the morning insulin degludec (Tresiba) 100 UNIT/ML injection Indications: Type 2 Diabetes Mellitus Inject 10 Units under the skin in the morning. 0 Active inject 6 [IU] by sub cutaneous injection at bedtime insulin degludec (Tresiba) 100 UNIT/ML injection Inject 6 Units under the skin at bedtime. 0 Active metoprolol tartrate (Lopressor) 12.5 mg split tablet (1 source) take 0.5 tablet by mouth in the morning metoprolol tartrate (Lopressor) 12.5 mg split tablet Take 0.5 tablets by mouth in the morning and 0.5 tablets before bedtime. 0 Active Multi Complete - (7 sources) Multi Complete - as directed Orally Active stbsaalt-cllb-LK-calcium &mins (THERAGRAN-M) 9 mg iron-400 mcg tablet (1 source) dxccvwrd-kain-AF -calcium &mins (THERAGRAN-M) 9 mg iron-400 mcg tablet Take 1 tablet by mouth daily. 0 Active oxygen as ordered (7 sources) oxygen as ordere d Active perflutren lipid microspheres 1.3 mL in NaCl (PF) 0.9% 10 mL injection (DEFINITY) (6 sources) Start: 10-16-2021 End: 01-15-2023 perflutren lipid microspheres 1.3 mL in NaCl (PF) 0.9% 10 mL injection (DEFINITY) Start: 10-04-2021 End: 01-03-2023 perflutren lipid microsphere s 1.3 mL in NaCl (PF) 0.9% 10 mL injection (DEFINITY) Start: 08-21-2020 End: 11-20-2021 perflutren lipid microsphere s 1.3 mL in NaCl (PF) 0.9% 10 mL injection (DEFINITY) sertraline 100 mg oral tablet (14 sources) Serotonin Reuptake Inhibitor Start: 05-08-2023 take 1 tablet by mouth in the morning sertraline (Zoloft) 100 MG tablet Indications: Depression, unspecified depression type (CMS/HCC) Take 1 tablet (100 mg) by mouth in the morning. 90 tablet 3 05/08/2023 Active Comment on above: Take 100 mg by mouth once daily. simvastatin 40 mg oral tablet (10 sources) HMG-CoA Reductase Inhibitor take 1 tablet by mouth once daily simvastatin (ZOCOR) 40 mg tablet Take 40 mg by mouth nightly. 0 Active 125 ml sodium chloride 9 mg/ml prefilled syringe (6 sources) Start: 08-21-2020 End: 01-15-2023 sodium chloride 0.9 % (flush) 10 mL (BD POSIFLUSH) True Metrix Blood Glucose Test - (7 sources) True Metrix Bloo d Glucose Test - as directed In Vitro Active warfarin sodium 3 mg oral tablet (20 sources) Vitamin K Antagonist Start: 11-14-2022 take 1 mg by mouth once daily warfarin (Coumadin) 3 MG tablet Indications: Paroxysmal atrial fibrillation (CMS/HCC) TAKE 1 TABLET BY MOUTH EVERY DAY FOR 30 DAYS. TAKING WITH 1/2 OF A 1 MG TABLET. 30 tablet 3 11/14/2022 Active warfarin (COUMAD IN) 1 mg tablet Take 0.5 mg by mouth in the evening. Take with 3 mg tablet. 0 Active take 1 tablet by mouth every oth er day warfarin (Coumadin) 1 MG tablet Take 1 tablet by mouth every other day 0 Active take 1 tablet by mouth every oth er day warfarin (Coumadin) 2 MG tablet Take 1 tablet by mouth every other day Take as directed per After Visit Summary. 0 Active take 1 tablet by mouth once aliyah y warfarin (Coumadin) 1 MG tablet TAKE 1 TABLET BY MOUTH ONCE A DAY for 30 0 Active warfarin (COUMAD IN) 3 mg tablet 4 mg daily 0 Active Comment on above: Take 1 mg by mouth a s directed. 4 mg daily Completed/Discontinued Medications Medication Drug Class(es) Dates Sig (Normalized) Sig (Original) acetaminophen 325 mg oral tablet (5 sources) Start: 08-24-2020 take 325-650 mg by mouth every six hours as needed acetaminophen (TYLENOL) 325 mg tablet Take 1-2 tablets by mouth every 6 hours as needed for Pain or Fever (specify). 0 08/24/2020 Active take 2 tablets by mouth in the m orning acetaminophen (Tylenol) 500 MG tablet Take 1,000 mg by mouth in the morning and 1,000 mg before bedtime. 0 Active Comment on above: Take 1-2 tablets by mouth every 6 hours as needed for Pain or Fever (specify). aspirin 81 mg chewable tablet (14 sources) Platelet Aggregation Inhibitor, Nonsteroidal Anti-inflammatory Drug Start: 08-24-2020 take 1 tablet by mouth once daily aspirin 81 mg chewable tablet Take 1 tablet by mouth once daily. 0 08/24/2020 Active take 81 mg by mouth once daily a spirin 81 mg Take 81 mg by mouth daily. 0 Active Comment on above: Take 1 tablet by mouth once daily. glucagon (rdna) 1 mg injection (4 sources) Antihypoglycemic Agent Start: glucagon 1 mg/mL injection Inject 1 mg intramuscularly as needed. 0 08/24/2020 Active Comment on above: Inject 1 mg intramuscularly as needed. sensor 3 ml insulin glargine 100 unt/ml pen injector (9 sources) Insulin Analog Start: inject 10 [IU] by subcutaneous injection once daily in the morning insulin glargine (LANTUS SOLOSTAR, BASAGLAR KWIKPEN) 100 unit/mL (3 mL) Inject 10 Units subcutaneously every morning. 0 08/24/2020 Active Start: 08-24-2020 inject 10 [IU] by mckeon bcutaneous injection once daily in the morning insulin glargine (LANTUS SOLOSTAR, BASAGLAR KWIKPEN) 100 unit/mL (3 mL) Inject 10 Units subcutaneously every morning. 0 08/24/2020 Active inject 15 [IU] by mckeon bcutaneous injection once daily insulin glargine (LANTUS) 100 unit/mL injection Inject 15 Units under the skin nightly. 0 Active Lantus SoloStar 100 UNIT/ML 12 units Subcutaneous daily for 90 days Titrate to 30 units daily Active Comment on above: Inject 10 Units subc utaneously every morning. insulin lispro 100 unt/ml injectable solution (20 sources) Insulin Analog Start: inject 12 [IU] by subcutaneous injection once daily at breakfast insulin lispro 100 unit/mL injection Inject 12 Units subcutaneously daily with breakfast. 0 08/25/2020 Active Start: 08-24-2020 inject 2 [IU] by sub cutaneous injection once daily at dinner insulin lispro 100 unit/mL injection Inject 2 Units subcutaneously daily with dinner. 0 08/24/2020 Active insulin lispro ( HumaLOG) 100 unit/mL injection Inject under the skin 3 (three) times a day before meals. Per sliding scale 0 Active HumaLOG 100 UNIT /ML ISS 1: 50 AC at bedtime Subcutaneous 4 times daily for 90 days Expect up to 30 units daily Active HumaLOG 100 UNIT /ML ISS 1: 50 AC at bedtime Subcutaneous 4 times daily for 90 days Expect up to 30 units daily Active Comment on above: Inject 12 Units subc utaneously daily with breakfast. Inject 2 Units subcu taneously daily with dinner. Inject 0-5 Units sub cutaneously w MEALS. metoprolol tartrate 25 mg oral tablet (13 sources) beta-Adrenergic Mil Start: 1 take 1 tablet by mouth every twelve hours metoprolol tartrate, short acting, (LOPRESSOR) 25 mg tablet Take 1 tablet by mouth every 12 hours. 0 08/24/2020 Active metoprolol tartr ate (Lopressor) 25 MG tablet TAKE 1 TABLET BY MOUTH TWICE A DAY WITH FOOD FOR 90 DAYS for 90 0 Active Comment on above: Take 1 tablet by binta th every 12 hours. pantoprazole 20 mg delayed release oral tablet (13 sources) Proton Pump Inhibitor Start: 1 take 1 tablet by mouth once daily, then take 6 tablets by mouth in the morning pantoprazole DR (PROTONIX) 20 mg tablet Take 1 tablet by mouth DAILY (6 AM). 0 08/24/2020 Active take 1 tablet by mouth in the mo rning pantoprazole (PROTONIX) 40 mg EC tablet Take 40 mg by mouth in the morning. 0 Active Comment on above: Take 1 tablet by binta th DAILY (6 AM). Problems Active Problems Problem Classification Problem Date Documented Date Episodic/Chronic Cardiac dysrhythmias (14 sources) Atrial flutter; Translations: [Unspecified atrial flutter] Onset: 08-04-2020 08-24-2020 Chronic Chronic kidney disease (11 sources) Chronic kidney disease, stage 3 (moderate); Translations: [History of anemia] Onset: 01-16-2015 04-02-2021 Chronic Chronic ulcer of skin (2 sources) Pressure ulcer of other site, stage 2; Translations: [Pressure ulcer, other site] Onset: 12-23-2022 12-23-2022 Chronic Coagulation and hemorrhagic disorders (6 sources) Heparin-induced thrombocytopenia; 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)] Onset: 08-05-2020 08-24-2020 Chronic Complication of device; implant or graft (1 source) Breakdown (mechanical) of heart valve prosthesis, initial encounter; Translations: [Breakdown (mechanical) of heart valve prosthesis, initial encounter] Onset: 03-23-2023 Episodic Congestive heart failure; nonhypertensive (18 sources) Acute right-sided heart failure; Translations: [Acute on chronic right heart failure] Onset: 07-06-2020 07-06-2020 Chronic Coronary atherosclerosis and other heart disease (7 sources) Coronary atherosclerosis; Translations: [Atherosclerotic heart disease of false pass coronary artery without angina pectoris] Onset: 07-31-2020 Chronic Diabetes mellitus with complications (20 sources) Type 2 diabetes mellitus with diabetic chronic kidney disease; Translations: [Type 2 diabetes mellitus with other specified complication] Onset: 04-17-2015 Chronic Diabetes mellitus with complications (4 sources) Type 2 diabetes mellitus with diabetic peripheral angiopathy with gangrene; Translations: [Type 2 diabetes mellitus with diabetic polyneuropathy] Onset: 04-22-2017 Diabetes mellitus without complication (8 sources) Diabetes mellitus; Translations: [Type 2 diabetes mellitus without complications] Onset: 04-22-2017 04-02-2021 Chronic Disorders of lipid metabolism (17 sources) Hyperlipidemia, unspecified; Translations: [Hyperlipidemia] Onset: 2016 08-24-2020 Chronic Diverticulosis and diverticulitis (2 sources) Diverticulosis of colon; Translations: [Diverticulosis of large intestine without perforation or abscess without bleeding] Onset: 01-16-2015 12-23-2022 Chronic Esophageal disorders (3 sources) Gastroesophageal reflux disease; Translations: [Gastro-esophageal reflux disease without esophagitis] Onset: 01-16-2015 08-28-2022 Chronic Essential hypertension (16 sources) Hypertensive disorder; Translations: [Essential (primary) hypertension] Onset: 01-29-2018 08-24-2020 Chronic Heart valve disorders (20 sources) Aortic incompetence, non-rheumatic ; Translations: [Nonrheumatic aortic (valve) insufficiency] Onset: 07-06-2020 Chronic Infective arthritis and osteomyelitis (except that caused by tuberculosis or sexually transmitted di (1 source) Other acute osteomyelitis, left ankle and foot; Translations: [OTHER ACUTE OSTEOMYELITIS, LEFT ANKLE AND FOOT] Onset: 04-22-2017 Chronic Mood disorders (2 sources) Depressive disorder; Translations: [Depression] Onset: 01-16-2015 08-28-2022 Chronic Mood disorders (1 source) Major depressive disorder, single episode, unspecified; Translations: [MAJOR DEPRESSIVE DISORDER, SINGLE EPISODE, UNSPECIFIED] Onset: 04-22-2017 Nutritional deficiencies (12 sources) Vitamin D deficiency; Translations: [Vitamin D deficiency, unspecified] Onset: 01-16-2015 Chronic Open wounds of extremities (4 sources) Amputated toe; Translations: [Complete traumatic amputation of one unspecified lesser toe, initial encounter] Onset: 05-07-2017 Resolved: 12-31-2022 12-23-2022 Chronic Osteoarthritis (1 source) Primary osteoarthritis, left ankle and foot; Translations: [PRIMARY OSTEOARTHRITIS, LEFT ANKLE AND FOOT] Onset: 06-04-2017 Chronic Osteoporosis (1 source) Age-related osteoporosis without current pathological fracture; Translations: [AGE-RELATED OSTEOPOROSIS W/O CURRENT PATHOLOGICAL FRACTURE] Onset: 06-04-2017 Chronic Other aftercare (3 sources) watermelon inspector (current) use of insulin; Translations: [ELECTRONIC RESOURCES LIBRARIAN (CURRENT) USE OF INSULIN] Onset: 04-22-2017 Episodic Other aftercare (2 sources) care home (current) use of anticoagulants; Translations: [FCI CURRNT USE ANTICOAGULANTS] Onset: 09-18-2020 Episodic Other bone disease and musculoskeletal deformities (1 source) Acquired absence of left great toe; Translations: [ACQUIRED ABSENCE OF LEFT GREAT TOE] Onset: 06-04-2017 Chronic Other bone disease and musculoskeletal deformities (2 sources) Absence of toe; Translations: [Acquired absence of left great toe] Onset: 05-07-2017 08-28-2022 Chronic Other bone disease and musculoskeletal deformities (2 sources) History of amputation of left great toe; Translations: [Acquired absence of left great toe] Onset: 10-04-2020 12-23-2022 Chronic Other ear and sense organ disorders (2 sources) Bilateral hearing loss; Translations: [Unspecified hearing loss, bilateral] Onset: 08-28-2022 08-28-2022 Chronic Other ear and sense organ disorders (2 sources) Hearing loss; Translations: [Unspecified hearing loss, unspecified ear] Onset: 10-27-2018 12-23-2022 Chronic Other nervous system disorders (2 sources) Carpal tunnel syndrome; Translations: [Carpal tunnel syndrome, unspecified upper limb] Onset: 08-28-2022 08-28-2022 Chronic Other nervous system disorders (2 sources) Chronic pain syndrome; Translations: [Chronic pain syndrome] Onset: 01-16-2015 08-28-2022 Chronic Other nutritional; endocrine; and metabolic disorders (1 source) Obesity, unspecified; Translations: [OBESITY UNSPECIFIED] Onset: 09-18-2020 Chronic Other nutritional; endocrine; and metabolic disorders (1 source) Body mass index (BMI) 40.0-44.9, adult; Translations: [BODY MASS INDEX BMI 40.0-44.9 ADULT] Onset: 09-18-2020 Chronic Other nutritional; endocrine; and metabolic disorders (6 sources) Body mass index 40+ - severely obese; Translations: [Morbid (severe) obesity due to excess calories] Onset: 07-06-2020 08-24-2020 Chronic Other nutritional; endocrine; and metabolic disorders (4 sources) Obese class II; Translations: [Obesity, unspecified] Onset: 10-06-2020 10-06-2020 Chronic Other nutritional; endocrine; and metabolic disorders (7 sources) Obese class I; Translations: [Body mass index (BMI) 33.0-33.9, adult] Chronic Other nutritional; endocrine; and metabolic disorders (2 sources) Body mass index (BMI) 33.0-33.9, adult Chronic Other nutritional; endocrine; and metabolic disorders (2 sources) Morbid obesity; Translations: [Morbid (severe) obesity due to excess calories] Onset: 10-17-2015 08-28-2022 Chronic Silvana-; endo-; and myocarditis; cardiomyopathy (except that caused by tuberculosis or sexually transmitted disease) (4 sources) Heart valve disorder; Translations: [Endocarditis, valve unspecified] Onset: 06-11-2020 08-28-2022 Chronic Peripheral and visceral atherosclerosis (6 sources) Peripheral vascular disease, unspecified; Translations: [Peripheral vascular disease, unspecified] Onset: 05-22-2020 08-22-2020 Chronic Residual codes; unclassified (1 source) Pain, unspecified; Translations: [PAIN UNSPECIFIED] Onset: 04-18-2021 Episodic Respiratory failure; insufficiency; arrest (adult) (4 sources) Chronic respiratory failure; Translations: [Chronic respiratory failure, unspecified whether with hypoxia or hypercapnia] Onset: 10-03-2020 08-28-2022 Chronic Sexually transmitted infections (not HIV or hepatitis) (2 sources) Tabetic neurosyphilis; 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] Onset: 12-23-2022 12-23-2022 Chronic Spondylosis; intervertebral disc disorders; other back problems (2 sources) Degeneration of thoracic intervertebral disc; Translations: [Other intervertebral disc degeneration, thoracic region] Onset: 09-28-2020 08-28-2022 Chronic Thyroid disorders (1 source) Hypothyroidism, unspecified; Translations: [Hypothyroidism, unspecified] Onset: 03-23-2023 Chronic Unclassified (2 sources) Unknown / UNK(Unknown) Onset: 04-22-2017 Unclassified (2 sources) CONTACT W/AND (SUSP) EXPOS COVID-19; Translations: [CONTACT W/AND (SUSP) EXPOS COVID-19] Onset: 04-18-2021 Unclassified (1 source) COUGH, UNSPECIFIED; Translations: [COUGH, UNSPECIFIED] Onset: 04-18-2021 Viral infection (1 source) COVID-19; Translations: [COVID-19] Onset: 04-18-2021 Past or Other Problems Problem Classification Problem Date Documented Da te Episodic/Chronic Acute and unspecified renal failure (7 sources) Acute kidney failure, unspecified; Translations: [Acute renal failure syndrome] Onset: 04-22-2017 08-24-2020 Episodic Administrative/social admission (16 sources) Patient encounter status; Translations: [Persons encountering health services in other specified circumstances] Onset: 08-14-2020 08-24-2020 Episodic Gangrene (1 source) Gangrene, not elsewhere classified; Translations: [GANGRENE, NOT ELSEWHERE CLASSIFIED] Onset: 04-22-2017 Episodic Gastrointestinal hemorrhage (6 sources) Hemorrhage of anus and rectum; Translations: [Gastrointestinal hemorrhage] Onset: 09-15-2020 Resolved: 01-01-2023 Episodic Malaise and fatigue (3 sources) Other fatigue; Translations: [Asthenia] Onset: 04-18-2021 09-10-2022 Episodic Other aftercare (1 source) care home (current) use of aspirin; Translations: [FCI CURRENT USE OF ASPIRIN] Onset: 09-18-2020 Episodic Other aftercare (9 sources) Long-term current use of insulin; Translations: [care home (current) use of insulin] Onset: 07-06-2017 08-28-2022 Episodic Other aftercare (2 sources) Long-term current use of anticoagulant; Translations: [watermelon inspector (current) use of anticoagulants] Onset: 08-29-2022 08-29-2022 Episodic Other connective tissue disease (5 sources) Pain in left foot; Translations: [Other specified soft tissue disorders] Onset: 06-04-2017 Episodic Other injuries and conditions due to external causes (2 sources) History of fall; Translations: [History of falling] Onset: 09-10-2022 09-10-2022 Episodic Other lower respiratory disease (1 source) Shortness of breath; Translations: [SHORTNESS OF BREATH] Onset: 09-18-2020 Episodic Other lower respiratory disease (6 sources) Dyspnea; Translations: [Shortness of breath] Onset: 07-06-2020 07-06-2020 Episodic Other lower respiratory disease (2 sources) Snoring; Translations: [Snoring] Onset: 01-23-2021 12-23-2022 Episodic Other nervous system disorders (5 sources) Postoperative pain ; Translations: [Other acute postprocedural pain] Onset: 07-31-2020 08-24-2020 Episodic Other nervous system disorders (2 sources) Abnormal gait; Translations: [Unspecified abnormalities of gait and mobility] Onset: 05-16-2019 08-28-2022 Episodic Other screening for suspected conditions (not mental disorders or infectious disease) (1 source) Abnormal coagulation profile; Translations: [ABNORMAL COAGULATION PROFILE] Onset: 09-18-2020 Episodic Pleurisy; pneumothorax; pulmonary collapse (10 sources) Pleural effusion, not elsewhere classified; Translations: [Pleural effusion] Onset: 08-14-2020 Episodic Residual codes; unclassified (6 sources) History of tricuspid valve repair; Translations: [Other specified postprocedural states] Onset: 09-03-2020 10-16-2021 Episodic Skin and subcutaneous tissue infections (1 source) Cellulitis of left lower limb; Translations: [CELLULITIS OF LEFT LOWER LIMB] Onset: 04-22-2017 Episodic Spondylosis; intervertebral disc disorders; other back problems (2 sources) Spinal stenosis of lumbar region; Translations: [Spinal stenosis, lumbar region without neurogenic claudication] Onset: 08-06-2017 08-28-2022 Episodic Unclassified (1 source) CONTACT W/AND (SUSP) EXPOS COVID-19; Translations: [CONTACT W/AND (SUSP) EXPOS COVID-19] Onset: 04-15-2021 Unclassified (2 sources) Onset: 12-31-2022 12-31-2022 Results Test Name Value Interpretation Reference Range Facility Albuminon 05-13-2023 Albumin [Mass/Vol] 2.6 g/dL Low 3.2 - 5.3 g/dL [facility] Comment on above: PERFORMED AT [facility] [address] [place] [address] Albumin [Mass/Vol]on 024 ALBUMIN REQUEST CREDITED Normal 3.2-5.3 [facility] Comment on above: Result Comment: ORDERED A CMP Corrected on 05/13 AT 1808: Previously reported as 2.6 Performed By: #### P INR #### [facility] ([id number]) [address] [place] [address] 52800 CBC AND AUTO DIFFon 05-13-19 24 ABSOLUTE BASOPHIL 0.1 X10E9/L Normal 0.0-0.2 [facility] Comment on above: Performed By: #### PINR #### [facility] ([id number]) [address] [place] [address] 03492 ABSOLUTE NEUTROPHIL 7.5 X10E9/L High 1.5-6.6 [facility] Comment on above: Performed By: #### PINR #### [facility] ([id number]) [address] [place] [address] 98386 Basophils/100 WBC (Bld) 0.7 % Normal [facility] Comment on above: Performed By: #### PINR #### [facility] ([id number]) [address] [place] [address] 20522 Eosinophils (Bld) [#/Vol] 0.2 10*3/uL Normal 0.0-0.4 [facility] Comment on above: Performed By: #### PINR #### [facility] ([id number]) [address] [place] [address] 75870 Eosinophils/100 WBC (Bld) 1.7 % Normal [facility] Comment on above: Performed By: #### PINR #### [facility] ([id number]) [address] [place] [address] 75981 Erythrocyte distribution width (RBC) [Ratio] 17.8 % High 11.5-15.0 [facility] Comment on above: Performed By: #### PINR #### [facility] ([id number]) [address] [place] [address] 81741 Hematocrit (Bld) [Volume fraction] 34.1 % Low 35-47 [facility] Comment on above: Performed By: #### PINR #### [facility] ([id number]) [address] [place] [address] 69710 Hemoglobin (Bld) [Mass/Vol] 11.0 g/dL Low 11.7-15.5 [facility] Comment on above: Performed By: #### PINR #### [facility] ([id number]) [address] [place] [address] 23492 Lymphocytes (Bld) [#/Vol] 0.7 10*3/uL Low 1.0-3.5 [facility] Comment on above: Performed By: #### PINR #### [facility] ([id number]) [address] [place] [address] 52562 Lymphocytes/100 WBC (Bld) 7.3 % Normal [facility] Comment on above: Performed By: #### PINR #### [facility] ([id number]) [address] [place] [address] 99632 MCH (RBC) [Entitic mass] 28.7 pg Normal 27-34 [facility] Comment on above: Performed By: #### PINR #### [facility] ([id number]) [address] [place] [address] 68806 MCHC (RBC) [Mass/Vol] 32.4 g/dL Normal 32-36 [facility] Comment on above: Performed By: #### PINR #### [facility] ([id number]) [address] [place] [address] 35862 MCV (RBC) [Entitic vol] 89 fL Normal 80-100 [facility] Comment on above: Performed By: #### PINR #### [facility] ([id number]) [address] [place] [address] 97818 Monocytes (Bld) [#/Vol] 0.7 10*3/uL Normal 0-0.9 [facility] Comment on above: Performed By: #### PINR #### [facility] ([id number]) [address] [place] [address] 69536 Monocytes/100 WBC (Bld) 7.3 % Normal [facility] Comment on above: Performed By: #### PINR #### [facility] ([id number]) [address] [place] [address] 05637 Neutrophils/100 WBC (Bld) 83.0 % Normal [facility] Comment on above: Performed By: #### PINR #### [facility] ([id number]) [address] [place] [address] 25129 Platelet mean volume (Bld) [Entitic vol] 8.4 fL Normal 7-12 [facility] Comment on above: Performed By: #### PINR #### [facility] ([id number]) [address] [place] [address] 10133 Platelets (Bld) [#/Vol] 424 10*3/uL Normal 150-450 [facility] Comment on above: Performed By: #### PINR #### [facility] ([id number]) [address] [place] [address] 50086 RBC COUNT 3.85 X10E12/L Normal 3.80-5.20 [facility] Comment on above: Performed By: #### PINR #### [facility] ([id number]) [address] [facility], [place] [address] WBC (Bld) [#/Vol] 9.0 10*3/uL Normal 4.0-11.0 [facility] Comment on above: Performed By: #### PINR #### [facility] ([id number]) [address] [facility], [place] [address] CBC W Auto Differential pane l (Bld)on 05-13-2023 ABSOLUTE BASOPHIL 0.1 [facility] Comment on above: PERFORMED AT [facility] [address] [place] [address] Basophils/100 WBC (Bld) 0.7 % [facility] Eosinophils (Bld) [#/Vol] 0.2 10*3/uL [facility] Eosinophils/100 WBC (Bld) 1.7 % [facility] Erythrocyte distribution width (RBC) [Ratio] 17.8 % High 11.5 - 15.0 % [facility] Hematocrit (Bld) [Volume fraction] 34.1 % Low 35 - 47 % [facility] Hemoglobin (Bld) [Mass/Vol] 11.0 g/dL Low 11.7 - 15.5 g/dL [facility] Lymphocytes (Bld) [#/Vol] 0.7 10*3/uL Low [facility] Lymphocytes/100 WBC (Bld) 7.3 % [facility] MCH (RBC) [Entitic mass] 28.7 pg 27 - 34 pg [facility] MCHC (RBC) [Mass/Vol] 32.4 g/dL 32 - 36 g/dL [facility] MCV (RBC) [Entitic vol] 89 fL 80 - 100 fL [facility] Monocytes (Bld) [#/Vol] 0.7 10*3/uL [facility] Monocytes/100 WBC (Bld) 7.3 % [facility] Neutrophils (Bld) [#/Vol] 7.5 10*3/uL High [facility] Neutrophils/100 WBC (Bld) 83.0 % [facility] Platelet mean volume (Bld) [Entitic vol] 8.4 fL 7 - 12 fL [facility] Platelets (Bld) [#/Vol] 424 10*3/uL [facility] RBC (Bld) [#/Vol] 3.85 10*6/uL [facility] WBC corrected for nucl RBC Auto (Bld) [#/Vol] 9.0 [facility] COMPREHENSIVE METABOLIC PANE Manolo 05-13-2023 Albumin [Mass/Vol] 2.8 g/dL Low 3.2-5.3 [facility] Comment on above: Performed By: #### PINR, CBCA, BMP, 3093 4-4 #### [facility] ([id number]) [address] [place] [address] 32899 ALP [Catalytic activity/Vol] 153 U/L High 39-130 [facility] Comment on above: Performed By: #### PINR, CBCA, BMP, 3093 4- #### [facility] ([id number]) [address] [place] [address] 82991 ALT [Catalytic activity/Vol] 19 U/L Normal 0-31 [facility] Comment on above: Performed By: #### PINR, CBCA, BMP, 3093 4-4 #### [facility] ([id number]) [address] [place] [address] 93701 Anion gap [Moles/Vol] 11 mmol/L Normal 5-15 [facility] Comment on above: Performed By: #### PINR, CBCA, BMP, 3093 4- #### [facility] ([id number]) [address] [place] [address] 72109 AST [Catalytic activity/Vol] 25 U/L Normal 0-41 [facility] Comment on above: Performed By: #### PINR, CBCA, BMP, 3093 4- #### [facility] ([id number]) [address] [place] [address] 21436 Bilirubin [Mass/Vol] 0.3 mg/dL Normal 0.3-1.2 [facility] Comment on above: Performed By: #### PINR, CBCA, BMP, 3093 4- #### [facility] ([id number]) [address] [place] [address] 44630 Calcium [Mass/Vol] 9.0 mg/dL Normal 8.5-10.5 [facility] Comment on above: Performed By: #### PINR, CBCA, BMP, 3093 4-4 #### [facility] ([id number]) [address] [place] [address] 49215 Chloride [Moles/Vol] 103 mmol/L Normal 98-109 [facility] Comment on above: Performed By: #### PINR, CBCA, BMP, 3093 4-4 #### [facility] ([id number]) [address] [place] [address] 37858 CO2 [Moles/Vol] 23 mmol/L Normal 22-32 [facility] Comment on above: Performed By: #### PINR, CBCA, BMP, 3093 4-4 #### [facility] ([id number]) [address] [place] [address] 82996 Creatinine [Mass/Vol] 2.07 mg/dL High 0.40-1.00 [facility] Comment on above: Result Comment: METHOD TRACEABLE TO IDMS STANDARD Performed By: #### P INR, CBCA, BMP, 88757-0 #### [facility] ([id number]) [address] [place] [address] 78201 GFR/1.73 sq M.predicted among non-blacks MDRD (S/P/Bld) [Vol rate/Area] 24 mL/min/{1.73_m2} Low >59 [facility] Comment on above: Result Comment: Reported eGFR is based on the CKD-EPI 2020 equation that does not use a race coefficient. Performed By: #### P INR, CBCA, BMP, 56658-2 #### [facility] ([id number]) [address] [place] [address] 99702 Glucose [Mass/Vol] 204 mg/dL High 65-99 [facility] Comment on above: Performed By: #### PINR, CBCA, BMP, 3093 4- #### [facility] ([id number]) [address] [place] [address] 07579 Potassium [Moles/Vol] 4.5 mmol/L Normal 3.5-5.0 [facility] Comment on above: Performed By: #### PINR, CBCA, BMP, 3093 4-4 #### [facility] ([id number]) [address] [place] [address] 41118 Protein [Mass/Vol] 6.1 g/dL Normal 6.0-8.0 [facility] Comment on above: Performed By: #### PINR, CBCA, BMP, 3092 4- #### [facility] ([id number]) [address] [place] [address] 30844 Sodium [Moles/Vol] 137 mmol/L Normal 134-146 [facility] Comment on above: Performed By: #### PINR, CBCA, BMP, 3093 - #### [facility] ([id number]) [address] [place] [address] 00506 Urea nitrogen [Mass/Vol] 91 mg/dL High 5-27 [facility] Comment on above: Performed By: #### PINR, CBCA, BMP, 3093 4-4 #### [facility] ([id number]) [address] [place] [address] 00723 No Panel Informationon 05-13 Interpretation and review of laboratory results Abnormal [facility] PROTIME AND INRon 05-13-2023 INR Coag (PPP) [Relative time] 2.2 {INR} High 0.8-1.1 [facility] Comment on above: Performed By: #### PINR #### [facility] ([id number]) [address] [place] [address] 06225 PT Coag (PPP) [Time] 25.3 s High 9.8-13.2 [facility] Comment on above: Result Comment: NEW REFERENCE RANGE Performed By: #### P INR #### [facility] ([id number]) [address] [place] [address] 02674 T3 [Mass/Vol]on 05-13-2023 TOTAL T3 (TT3) 22 ng/dL Low 87-178 [facility] Comment on above: Performed By: #### PINR, CBCA, BMP, 3093 4-4 #### [facility] ([id number]) [address] [place] [address] 24486 THYROID PROFILEon 05-13-2023 Free T4 [Mass/Vol] 1.14 ng/dL Normal 0.61-1.60 [facility] Comment on above: Performed By: #### PINR #### [facility] ([id number]) [address] [place] [address] 16469 TSH 5.80 uIU/mL High 0.49-4.67 [facility] Comment on above: Performed By: #### PINR #### [facility] ([id number]) [address] [place] [address] 13400 Urea nitrogen [Mass/Vol]on 0 05-13-2023 BLOOD UREA NITROGEN REQUEST CREDITED Normal 5-27 [facility] Comment on above: Result Comment: ORDERED A CMP Corrected on 05/13 AT 1808: Previously reported as 95 Performed By: #### P INR #### [facility] ([id number]) [address] [place] [address] 14039 CBC AND AUTO DIFFon 04-28-19 24 ABSOLUTE BASOPHIL 0.1 X10E9/L Normal 0.0-0.2 [facility] Comment on above: Performed By: #### PINR #### [facility] ([id number]) [address] [place] [address] 43061 ABSOLUTE NEUTROPHIL 2.8 X10E9/L Normal 1.5-6.6 [facility] Comment on above: Performed By: #### PINR #### [facility] ([id number]) [address] [place] [address] 90505 Basophils/100 WBC (Bld) 1.2 % Normal [facility] Comment on above: Performed By: #### PINR #### [facility] ([id number]) [address] [place] [address] 78320 Eosinophils (Bld) [#/Vol] 0.3 10*3/uL Normal 0.0-0.4 [facility] Comment on above: Performed By: #### PINR #### [facility] ([id number]) [address] [place] [address] 87903 Eosinophils/100 WBC (Bld) 5.4 % Normal [facility] Comment on above: Performed By: #### PINR #### [facility] ([id number]) [address] [place] [address] 71827 Erythrocyte distribution width (RBC) [Ratio] 17.2 % High 11.5-15.0 [facility] Comment on above: Performed By: #### PINR #### [facility] ([id number]) [address] [place] [address] 76726 Hematocrit (Bld) [Volume fraction] 30.3 % Low 35-47 [facility] Comment on above: Performed By: #### PINR #### [facility] ([id number]) [address] [place] [address] 14479 Hemoglobin (Bld) [Mass/Vol] 9.9 g/dL Low 11.7-15.5 [facility] Comment on above: Performed By: #### PINR #### [facility] ([id number]) [address] [place] [address] 88918 Lymphocytes (Bld) [#/Vol] 0.7 10*3/uL Low 1.0-3.5 [facility] Comment on above: Performed By: #### PINR #### [facility] ([id number]) [address] [place] [address] 43720 Lymphocytes/100 WBC (Bld) 14.1 % Normal [facility] Comment on above: Performed By: #### PINR #### [facility] ([id number]) [address] [place] [address] 72832 MCH (RBC) [Entitic mass] 29.0 pg Normal 27-34 [facility] Comment on above: Performed By: #### PINR #### [facility] ([id number]) [address] [place] [address] 59294 MCHC (RBC) [Mass/Vol] 32.6 g/dL Normal 32-36 [facility] Comment on above: Performed By: #### PINR #### [facility] ([id number]) [address] [place] [address] 68031 MCV (RBC) [Entitic vol] 89 fL Normal 80-100 [facility] Comment on above: Performed By: #### PINR #### [facility] ([id number]) [address] [place] [address] 57250 Monocytes (Bld) [#/Vol] 0.9 10*3/uL Normal 0-0.9 [facility] Comment on above: Performed By: #### PINR #### [facility] ([id number]) [address] [place] [address] 89768 Monocytes/100 WBC (Bld) 19.1 % Normal [facility] Comment on above: Performed By: #### PINR #### [facility] ([id number]) [address] [place] [address] 48823 Neutrophils/100 WBC (Bld) 60.2 % Normal [facility] Comment on above: Performed By: #### PINR #### [facility] ([id number]) [address] [place] [address] 58317 Platelet mean volume (Bld) [Entitic vol] 8.6 fL Normal 7-12 [facility] Comment on above: Performed By: #### PINR #### [facility] ([id number]) [address] [place] [address] 70555 Platelets (Bld) [#/Vol] 335 10*3/uL Normal 150-450 [facility] Comment on above: Performed By: #### PINR #### [facility] ([id number]) [address] [place] [address] 94651 RBC COUNT 3.40 X10E12/L Low 3.80-5.20 [facility] Comment on above: Performed By: #### PINR #### [facility] ([id number]) [address] [place] [address] 89461 WBC (Bld) [#/Vol] 4.7 10*3/uL Normal 4.0-11.0 [facility] Comment on above: Performed By: #### PINR #### [facility] ([id number]) [address] [place] [address] 63039 COMPREHENSIVE METABOLIC PANE Manolo 04-28-2023 Albumin [Mass/Vol] 2.3 g/dL Low 3.2-5.3 [facility] Comment on above: Performed By: #### PINR #### [facility] ([id number]) [address] [place] [address] 61126 ALP [Catalytic activity/Vol] 120 U/L Normal 39-130 [facility] Comment on above: Performed By: #### PINR #### [facility] ([id number]) [address] [place] [address] [place] [address] ALT [Catalytic activity/Vol] 13 U/L Normal 0-31 [facility] Comment on above: Performed By: #### PINR #### [facility] ([id number]) [address] [place] [address], [place] [address] Anion gap [Moles/Vol] 8 mmol/L Normal 5-15 [facility] Comment on above: Performed By: #### PINR #### [facility] ([id number]) [address] [place] [address], [place] [address] AST [Catalytic activity/Vol] 14 U/L Normal 0-41 [facility] Comment on above: Performed By: #### PINR #### [facility] ([id number]) [address] [place] [address], [place] [address] Bilirubin [Mass/Vol] 0.3 mg/dL Normal 0.3-1.2 [facility] Comment on above: Performed By: #### PINR #### [facility] ([id number]) [address] [place] [address], [place] [address] Calcium [Mass/Vol] 9.2 mg/dL Normal 8.5-10.5 [facility] Comment on above: Performed By: #### PINR #### [facility] ([id number]) [address] [place] [address], [place] [address] Chloride [Moles/Vol] 110 mmol/L High 98-109 [facility] Comment on above: Performed By: #### PINR #### [facility] ([id number]) [address] [place] [address], [place] [address] CO2 [Moles/Vol] 19 mmol/L Low 22-32 [facility] Comment on above: Performed By: #### PINR #### [facility] ([id number]) [address] [place] [address] 06635 Creatinine [Mass/Vol] 1.75 mg/dL High 0.40-1.00 [facility] Comment on above: Result Comment: METHOD TRACEABLE TO IDMS STANDARD Performed By: #### P INR #### [facility] ([id number]) [address] [place] [address] 99098 GFR/1.73 sq M.predicted among non-blacks MDRD (S/P/Bld) [Vol rate/Area] 29 mL/min/{1.73_m2} Low >59 [facility] Comment on above: Result Comment: Reported eGFR is based on the CKD-EPI 2020 equation that does not use a race coefficient. Performed By: #### P INR #### [facility] ([id number]) [address] [place] [address] 37437 Glucose [Mass/Vol] 264 mg/dL High 65-99 [facility] Comment on above: Performed By: #### PINR #### [facility] ([id number]) [address] [place] [address] 51843 Potassium [Moles/Vol] 4.9 mmol/L Normal 3.5-5.0 [facility] Comment on above: Performed By: #### PINR #### [facility] ([id number]) [address] [place] [address] 15587 Protein [Mass/Vol] 5.7 g/dL Low 6.0-8.0 [facility] Comment on above: Performed By: #### PINR #### [facility] ([id number]) [address] [place] [address] 82676 Sodium [Moles/Vol] 137 mmol/L Normal 134-146 [facility] Comment on above: Performed By: #### PINR #### [facility] ([id number]) [address] [place] [address] Urea nitrogen [Mass/Vol] 55 mg/dL High 5-27 [facility] Comment on above: Performed By: #### PINR #### [facility] ([id number]) [address] [place] [address] 72610 Natriuretic peptide B [Mass/ Vol]on 04-28-2023 Natriuretic peptide B (Bld) [Mass/Vol] 879 pg/mL High <100.0 [facility] Comment on above: Performed By: #### PINR #### [facility] ([id number]) [address] [place] [address] 94735 PROTIME AND INRon 04-28-2023 INR Coag (PPP) [Relative time] 4.3 {INR} Critically high 0.8-1.1 [facility] Comment on above: Performed By: #### PINR #### [facility] ([id number]) [address] [place] [address] 03878 PT Coag (PPP) [Time] 47.9 s High 9.8-13.2 [facility] Comment on above: Result Comment: NEW REFERENCE RANGE Performed By: #### P INR #### [facility] ([id number]) [address] [place] [address] 66250 PROTIME AND INRon 04-27-2023 INR Coag (PPP) [Relative time] 4.7 {INR} Critically high 0.8-1.1 [facility] Comment on above: Performed By: #### PINR #### [facility] ([id number]) [address] [place] [address] 96419 PT Coag (PPP) [Time] 51.5 s High 9.8-13.2 [facility] Comment on above: Result Comment: NEW REFERENCE RANGE Performed By: #### P INR #### [facility] ([id number]) [address] [place] [address] 53731 PROTIME AND INRon 04-20-2023 INR Coag (PPP) [Relative time] 2.8 {INR} High 0.8-1.1 [facility] Comment on above: Performed By: #### PINR #### [facility] ([id number]) [address] [place] [address] 93143 PT Coag (PPP) [Time] 31.0 s High 9.8-13.2 [facility] Comment on above: Result Comment: NEW REFERENCE RANGE Performed By: #### P INR #### [facility] ([id number]) [address] [place] [address], [place] [address] PROTIME AND INRon 04-13-2023 INR Coag (PPP) [Relative time] 2.4 {INR} High 0.8-1.1 [facility] Comment on above: Performed By: #### PINR #### [facility] ([id number]) [address] [place] [address] [place] [address] PT Coag (PPP) [Time] 27.4 s High 9.8-13.2 [facility] Comment on above: Result Comment: NEW REFERENCE RANGE Performed By: #### P INR #### [facility] ([id number]) [address] [place] [address] 99992 PROTIME AND INRon 04-08-2023 INR Coag (PPP) [Relative time] 4.0 {INR} High 0.8-1.1 [facility] Comment on above: Performed By: #### PINR #### [facility] ([id number]) [address] [place] [address] 18760 PT Coag (PPP) [Time] 44.5 s High 9.8-13.2 [facility] Comment on above: Result Comment: NEW REFERENCE RANGE Performed By: #### P INR #### [facility] ([id number]) [address] [place] [address] PROTIME AND INRon 04-07-2023 INR Coag (PPP) [Relative time] 4.1 {INR} Critically high 0.8-1.1 [facility] Comment on above: Performed By: #### PINR #### [facility] ([id number]) [address] [place] [id number] PT Coag (PPP) [Time] 45.4 s High 9.8-13.2 [facility] Comment on above: Result Comment: NEW REFERENCE RANGE Performed By: #### P INR #### [facility] ([id number]) [address] [place] [id number] BASIC METABOLIC PANLon 03-31 Anion gap [Moles/Vol] 9 mmol/L Normal 5-15 [facility] Comment on above: Performed By: #### PINR, CBCA, BMP, 3093 4-4 #### [facility] ([id number]) [address] [place] [address] [id number] Calcium [Mass/Vol] 9.0 mg/dL Normal 8.5-10.5 [facility] Comment on above: Performed By: #### PINR, CBCA, BMP, 3093 4-4 #### [facility] ([id number]) [address] [place] [address] [id number] Chloride [Moles/Vol] 108 mmol/L Normal 98-109 [facility] Comment on above: Performed By: #### PINR, CBCA, BMP, 3093 4-4 #### [facility] ([id number]) [address] [place] [address] [id number] CO2 [Moles/Vol] 20 mmol/L Low 22-32 [facility] Comment on above: Performed By: #### PINR, CBCA, BMP, 3093 4-4 #### [facility] ([id number]) [address] [place] [address] 74723 Creatinine [Mass/Vol] 1.60 mg/dL High 0.40-1.00 [facility] Comment on above: Result Comment: METHOD TRACEABLE TO IDMS STANDARD Performed By: #### P INR, CBCA, BMP, 63669-9 #### [facility] ([id number]) [address] [place] [address] 16844 GFR/1.73 sq M.predicted among non-blacks MDRD (S/P/Bld) [Vol rate/Area] 33 mL/min/{1.73_m2} Low >59 [facility] Comment on above: Result Comment: Reported eGFR is based on the CKD-EPI 2020 equation that does not use a race coefficient. Performed By: #### P INR, CBCA, BMP, 87968-9 #### [facility] ([id number]) [address] [place] [address] 58033 Glucose [Mass/Vol] 185 mg/dL High 65-99 [facility] Comment on above: Performed By: #### PINR, CBCA, BMP, 3093 4-4 #### [facility] ([id number]) [address] [place] [address] 79547 Potassium [Moles/Vol] 4.3 mmol/L Normal 3.5-5.0 [facility] Comment on above: Performed By: #### PINR, CBCA, BMP, 3093 4-4 #### [facility] ([id number]) [address] [place] [address] 63527 Sodium [Moles/Vol] 137 mmol/L Normal 134-146 [facility] Comment on above: Performed By: #### PINR, CBCA, BMP, 3093 4-4 #### [facility] ([id number]) [address] [place] [address] 81664 Urea nitrogen [Mass/Vol] 45 mg/dL High 5-27 [facility] Comment on above: Performed By: #### PINR, CBCA, BMP, 07-08 #### [facility] ([id number]) [address] [place] [address] 07434 CBC AND AUTO DIFFon 03-31-20 23 Eosinophils (Bld) [#/Vol] 0.1 10*3/uL Normal 0.0-0.4 [facility] Comment on above: Performed By: #### PINR, CBCA, BMP, 07-08 #### [facility] ([id number]) [address] [place] [address] 59604 Eosinophils/100 WBC (Bld) 2.0 % Normal [facility] Comment on above: Performed By: #### PINR, CBCA, BMP, 07-08 #### [facility] ([id number]) [address] [place] [address] 79603 Erythrocyte distribution width (RBC) [Ratio] 16.3 % High 11.5-15.0 [facility] Comment on above: Performed By: #### PINR, CBCA, BMP, 07-08 #### [facility] ([id number]) [address] [place] [address] 26059 FRAGMENT 1+ Abnormal NONE [facility] Comment on above: Performed By: #### PINR, CBCA, BMP, 07-08 #### [facility] ([id number]) [address] [place] [address] 31891 Hematocrit (Bld) [Volume fraction] 30.9 % Low 35-47 [facility] Comment on above: Performed By: #### PINR, CBCA, BMP, 07-08 #### [facility] ([id number]) [address] [place] [address] 91681 Hemoglobin (Bld) [Mass/Vol] 10.1 g/dL Low 11.7-15.5 [facility] Comment on above: Performed By: #### PINR, CBCA, BMP, 07-08 #### [facility] ([id number]) [address] [place] [address] 72134 Lymphocytes (Bld) [#/Vol] 1.1 10*3/uL Normal 1.0-3.5 [facility] Comment on above: Performed By: #### PINR, CBCA, BMP, 07-08 #### [facility] ([id number]) [address] [place] [address] 50101 Lymphocytes/100 WBC (Bld) 17.0 % Normal [facility] Comment on above: Performed By: #### PINR, CBCA, BMP, 07-08 #### [facility] ([id number]) [address] [place] [address] 05916 MCH (RBC) [Entitic mass] 29.3 pg Normal 27-34 [facility] Comment on above: Performed By: #### PINR, CBCA, BMP, 07-08 #### [facility] ([id number]) [address] [place] [address] 06131 MCHC (RBC) [Mass/Vol] 32.7 g/dL Normal 32-36 [facility] Comment on above: Performed By: #### PINR, CBCA, BMP, 07-08 #### [facility] ([id number]) [address] [place] [address] 68699 MCV (RBC) [Entitic vol] 90 fL Normal 80-100 [facility] Comment on above: Performed By: #### PINR, CBCA, BMP, 07-08 #### [facility] ([id number]) [address] [place] [address] 77739 Monocytes (Bld) [#/Vol] 0.9 10*3/uL Normal 0-0.9 [facility] Comment on above: Performed By: #### PINR, CBCA, BMP, 07-08 #### [facility] ([id number]) [address] [place] [address] 76014 Monocytes/100 WBC (Bld) 14.0 % Normal [facility] Comment on above: Performed By: #### PINR, CBCA, BMP, 07-08 #### [facility] ([id number]) [address] [place] [address] 37803 Neutrophils (Bld) [#/Vol] 4.4 10*3/uL Normal 1.5-6.6 [facility] Comment on above: Performed By: #### PINR, CBCA, BMP, 07-08 #### [facility] ([id number]) [address] [place] [address] 04875 Platelet mean volume (Bld) [Entitic vol] 8.8 fL Normal 7-12 [facility] Comment on above: Performed By: #### PINR, CBCA, BMP, 07-08 #### [facility] ([id number]) [address] [place] [address] 68108 Platelets (Bld) [#/Vol] 302 10*3/uL Normal 150-450 [facility] Comment on above: Performed By: #### PINR, CBCA, BMP, 07-08 #### [facility] ([id number]) [address] [place] [address] 15667 RBC COUNT 3.45 X10E12/L Low 3.80-5.20 [facility] Comment on above: Performed By: #### PINR, CBCA, BMP, 07-08 #### [facility] ([id number]) [address] [place] [address] 63101 SEG NEUTROPHIL 67.0 % Normal [facility] Comment on above: Performed By: #### PINR, CBCA, BMP, 3093 4-4 #### [facility] ([id number]) [address] [place] [address] 98274 WBC (Bld) [#/Vol] 6.4 10*3/uL Normal 4.0-11.0 [facility] Comment on above: Performed By: #### PINR, CBCA, BMP, 3093 4-4 #### [facility] ([id number]) [address] [place] [address] 23178 Natriuretic peptide B [Mass/ Vol]on 03-31-2023 Natriuretic peptide B (Bld) [Mass/Vol] 1050 pg/mL High <100.0 [facility] Comment on above: Performed By: #### PINR, CBCA, BMP, 3093 4-4 #### [facility] ([id number]) [address] [place] [address] 81543 PROTIME AND INRon 03-31-2023 INR Coag (PPP) [Relative time] 3.4 {INR} High 0.8-1.1 [facility] Comment on above: Performed By: #### PINR, CBCA, BMP, 3093 -4 #### [facility] ([id number]) [address] [place] [address] 99297 PT Coag (PPP) [Time] 37.8 s High 9.8-13.2 [facility] Comment on above: Result Comment: NEW REFERENCE RANGE Performed By: #### P INR, CBCA, BMP, 60847-4 #### [facility] ([id number]) [address] [place] [address] 69734 FREE T3on 03-23-2023 Free T3 [Mass/Vol] 2.25 pg/mL Low 2.50-3.90 [facility] Comment on above: Performed By: #### 3051-0 #### [facility] ([id number]) [address] [place] [address] PROTIME AND INRon 03-23-2023 INR Coag (PPP) [Relative time] 2.6 {INR} High 0.8-1.1 [facility] Comment on above: Performed By: #### PINR #### [facility] ([id number]) [address], [place] [address] PT Coag (PPP) [Time] 29.2 s High 9.8-13.2 [facility] Comment on above: Result Comment: NEW REFERENCE RANGE Performed By: #### P INR #### [facility] ([id number]) [address], [place] [address] Glucose - FINGER STICKon Glucose [Mass/Vol] 153 mg/dL [facility] Other A1C HEMOGLOBINon 06-18-2022 HbA1c (Bld) [Mass fraction] 7.4 % [facility] Other Glucose - FINGER STICKon Glucose [Mass/Vol] 98 mg/dL [facility] Other HbA1c (Bld) [Mass fraction]o n 06-18-2022 A1C HEMOGLOBIN [employer] [facility] [place] Other CBC panel Auto (Bld)on 10-16 Erythrocyte distribution width (RBC) [Ratio] 14.8 % Normal 11.5-15.0 [facility] Comment on above: Order Comment: Specimen Type: BLOOD SPEC IMEN Ordering Facility: [facility] Address: [address] [place] [address] Performed By: #### 5 8410-2 #### [facility] CLIA [id number] [address] [place] [address] [address] [place] Hematocrit (Bld) [Volume fraction] 38.5 % Normal 36.0-46.0 [facility] Comment on above: Order Comment: Specimen Type: BLOOD SPEC IMEN Ordering Facility: [facility] Address: [address] [place], [place] [address] Performed By: #### 5 8410-2 #### [facility] CLIA [id number] [address] [place] [address] [place] Hemoglobin (Bld) [Mass/Vol] 11.7 g/dL Normal 11.5-15.5 [facility] Comment on above: Order Comment: Specimen Type: BLOOD SPEC IMEN Ordering Facility: [facility] Address: [address] [place], [place] [address] Performed By: #### 5 8410-2 #### [facility] CLIA [id number] [address] [place] [address] [place] MCH (RBC) [Entitic mass] 28.1 pg Normal 26.0-34.0 [facility] Comment on above: Order Comment: Specimen Type: BLOOD SPEC IMEN Ordering Facility: [facility] Address: [address] [place], [place] [address] Performed By: #### 5 8410-2 #### [facility] CLIA [id number] [address] [place] [address] [place] MCHC (RBC) [Mass/Vol] 30.4 g/dL Low 30.5-36.0 [facility] Comment on above: Order Comment: Specimen Type: BLOOD SPEC IMEN Ordering Facility: [facility] Address: [address] [place], [place] [address] Performed By: #### 5 8410-2 #### [facility] CLIA [id number] [address] [place] [address] [place] MCV (RBC) [Entitic vol] 92.3 fL Normal 80.0-100.0 [facility] Comment on above: Order Comment: Specimen Type: BLOOD SPEC IMEN Ordering Facility: [facility] Address: [address] [place], [place] [address] Performed By: #### 5 8410-2 #### [facility] CLIA [id number] [address] [place] [address] [place] Nucleated RBC (Bld) [#/Vol] 10*3/uL Normal <0.01 [facility] Comment on above: Order Comment: Specimen Type: BLOOD SPEC IMEN Ordering Facility: [facility] Address: [address] [place], [place] [address] Performed By: #### 5 8410-2 #### [facility] CLIA [id number] [address] [place] [address] [place] Platelet mean volume (Bld) [Entitic vol] 11.1 fL Normal 9.0-12.7 [facility] Comment on above: Order Comment: Specimen Type: BLOOD SPEC IMEN Ordering Facility: [facility] Address: [address] [place] [address] Performed By: #### 5 8410-2 #### [facility] CLIA [id number] [address] [place] [address] [place] Platelets (Bld) [#/Vol] 251 10*3/uL Normal 150-400 [facility] Comment on above: Order Comment: Specimen Type: BLOOD SPEC IMEN Ordering Facility: [facility] Address: [address] [place], [place] [address] Performed By: #### 5 8410-2 #### [facility] CLIA [id number] [address] [place] [address] [place] RBC (Bld) [#/Vol] 4.17 10*6/uL Normal 3.90-5.20 [facility] Comment on above: Order Comment: Specimen Type: BLOOD SPEC IMEN Ordering Facility: [facility] Address: [address] [place], [place] [address] Performed By: #### 5 8410-2 #### [facility] CLIA [id number] [address] [place] [address] [place] WBC (Bld) [#/Vol] 6.02 10*3/uL Normal 3.70-11.00 [facility] Comment on above: Order Comment: Specimen Type: BLOOD SPEC IMEN Ordering Facility: [facility] Address: [address] [place], [place] [address] Performed By: #### 5 8410-2 #### [facility] CLIA [id number] [address] [place] [address] [address] [place] [id number] [facility] CNOVon 10-16-2021 CNOV Office Visit (CARIMN ) ARTHUR YEN ([id number]) 1945 F Date Time Provider Department 10/16/21 3:00 PM PRINCE TRUJILLO During your visit today, we recorded the following information about you: Pulse Blood pressure Weight Height 65/minute 108/70 76.2 kg 1.524 m Prince Trujillo MD 10/16/2021 10:16 PM Signed [facility] [place] Diane Fuller Department of Cardiovascular Medicine SECTION OF CARDIOVASCULAR IMAGING OUTPATIENT VISIT DATE October 16, 2021 OUTPATIENT VISIT TYPE Established PRIMARY CARE PHYSICIAN: Theresa Valles MD ([facility]) [address] [place] [address] REFERRING PHYSICIAN: Theresa Valles MD ([facility]) [facility] [address] CHIEF COMPLAINT: Follow-up. Subjective HISTORY OF PRESENT ILLNESS: Ms. Yen is a 76 year old female who presents today for follow-up. I last reviewed Ms. Yen on October 05, 2020. She is accompanied by her daughter during the consultation. She has a history of peripheral vascular disease (status post left second toe amputation), stage 4 chronic kidney disease, mitral and tricuspid regurgitation. Due to progressive decompensated heart failure, she was admitted for further evaluation. On July 31, 2020, Ms. Yen underwent mitral valve replacement with a size 29 Biocor, and tricuspid valve repair with size [address] Anguiano. Post-operatively, she was taken back to the OR for bleeding. She developed post-operative atrial fibrillation, requiring cardioversion. She also required transient dialysis support. She also developed heparin induced thrombocytopenia, and was managed with bivalirudin. Since last review, Ms. Yen has been clinically well from the cardiac perspective. She no longer experiences exertional dyspnea. PAST CARDIAC HISTORY: As noted above. PAST MEDICAL HISTORY Diagnosis Date - Amputation of great toe, left, traumatic (HCC) - Amputation of second toe, left, traumatic ([facility]) - CKD (chronic kidney disease) stage 4, GFR 15-29 ml/min ([facility]) - Depression - Diabetes mellitus ([facility]) type 2 - Diverticulosis - HLD (hyperlipidemia) - HTN (hypertension) - Mitral valve regurgitation moderate to severe per OSH Echo on 06/04/2020 - Morbid obesity ([facility]) - Osteoarthritis - Osteomyelitis ([facility]) - PAD (peripheral artery disease) ([facility]) - Spinal stenosis - Tricuspid valve regurgitation moderate to severe per per OSH Echo on 06/04/2020 - Vitamin D deficiency PAST SURGICAL HISTORY Procedure Laterality Date - ABLATION L3, 4,5 - CARPAL TUNNEL Right - CATARACT EXTRACTION HX - COLONOSCOPY - EYE SURGERY HX Bilateral - FOOT SURGERY HX - NERVE BLOCK - TOE SURGERY HX left great toe amputation - TOE SURGERY HX left foot second digit amputation SOCIAL HISTORY Social History Tobacco Use - Smoking status: Never Smoker - Smokeless tobacco: Never Used Substance Use Topics - Alcohol use: Never - Drug use: Not on file FAMILY HISTORY Problem Relation Age of Onset - Diabetes Mother - Heart Attack Father at age 80 - Diabetes Father - Cancer Maternal Grandmother - Kidney Disease Paternal Grandfather - Diabetes Daughter ALLERGIES: ALLERGIES Allergen Reactions - Heparin Other: See Comments Confirmed HIT 08/05/2020 MEDICATIONS: warfarin (COUMADIN) 1 mg tablet Take 1 mg by mouth as directed. bumetanide (BUMEX) 1 mg tablet Take 1 tablet by mouth twice daily. aspirin 81 mg chewable tablet Take 1 tablet by mouth once daily. gabapentin (NEURONTIN) 100 mg capsule Take 2 capsules by mouth twice daily for 30 days. acetaminophen (TYLENOL) 325 mg tablet Take 1-2 tablets by mouth every 6 hours as needed for Pain or Fever (specify). glucagon 1 mg/mL injection Inject 1 mg intramuscularly as needed. insulin glargine (LANTUS SOLOSTAR, BASAGLAR KWIKPEN) 100 unit/mL (3 mL) Inject 10 Units subcutaneously every morning. insulin lispro 100 unit/mL injection Inject 12 Units subcutaneously daily with breakfast. insulin lispro 100 unit/mL injection Inject 2 Units subcutaneously daily with dinner. insulin lispro 100 unit/mL injection Inject 0-5 Units subcutaneously w MEALS. sertraline (ZOLOFT) 100 mg tablet Take 100 mg by mouth once daily. ferrous sulfate (IRON ORAL) Take 130 mg by mouth once daily. warfarin (COUMADIN) 3 mg tablet [address] (PROTONIX) 20 mg tablet Take 1 tablet by mouth DAILY (6 AM). metoprolol tartrate, short acting, (LOPRESSOR) 25 mg tablet Take 1 tablet by mouth every 12 hours. PHYSICAL EXAMINATION: BP 108/70 (BP Site: Left Arm, BP Position: Sitting, BP Cuff Size: Regular Adult) Pulse 65 Ht 152.4 cm (5') Wt 76.2 kg (168 lb) SpO2 98% BMI 32.81 kg/m? General: Looks well. Skin: No clubbing, no cyanosis. Eyes: Extra ocular movements intact Oropharynx: Teeth in goo (more content not included)... Normal [facility] Comprehensive metabolic 2000 panelon 10-16-2021 Albumin [Mass/Vol] 3.7 g/dL Low 3.9-4.9 [facility] Comment on above: Order Comment: Specimen Type: BLOOD SPEC IMEN Ordering Facility: [facility] Address: [address] [place] [address] Performed By: #### 2 4323-8 #### [facility] CLIA [id number] [address] [place], [place] [address] [place] [address] [place] ALP [Catalytic activity/Vol] 105 U/L Normal 34-123 [facility] Comment on above: Order Comment: Specimen Type: BLOOD SPEC IMEN Ordering Facility: [facility] Address: [address] [place] [address] Performed By: #### 2 4323-8 #### [facility] CLIA [id number] [address] [place] [id number] [place] ALT [Catalytic activity/Vol] 15 U/L Normal 7-38 [facility] Comment on above: Order Comment: Specimen Type: BLOOD SPEC IMEN Ordering Facility: [facility] Address: [address] [place], [place] [address] Performed By: #### 2 4323-8 #### [facility] CLIA [id number] [address] [place] [address] [place] Anion gap [Moles/Vol] 9 mmol/L Normal 9-18 [facility] Comment on above: Order Comment: Specimen Type: BLOOD SPEC IMEN Ordering Facility: [facility] Address: [address] [place] [address] Performed By: #### 2 4323-8 #### [facility] CLIA [id number] [address] [place] [address] [place] AST [Catalytic activity/Vol] 27 U/L Normal 13-35 [facility] Comment on above: Order Comment: Specimen Type: BLOOD SPEC IMEN Ordering Facility: [facility] Address: [address] [place], [place] [address] Performed By: #### 2 4323-8 #### [facility] CLIA [id number] [address] [place] [address] [place] Bilirubin [Mass/Vol] 0.3 mg/dL Normal 0.2-1.3 [facility] Comment on above: Order Comment: Specimen Type: BLOOD SPEC IMEN Ordering Facility: [facility] Address: [address] [place] [address] Performed By: #### 2 4323-8 #### [facility] CLIA [id number] [address] [place] [address] [place] Calcium [Mass/Vol] 10.7 mg/dL High 8.5-10.2 [facility] Comment on above: Order Comment: Specimen Type: BLOOD SPEC IMEN Ordering Facility: [facility] Address: [address] Performed By: #### 2 4323-8 #### [facility] CLIA [id number] [address] [place] [address] [place] Chloride [Moles/Vol] 104 mmol/L Normal 97-105 [facility] Comment on above: Order Comment: Specimen Type: BLOOD SPEC IMEN Ordering Facility: [facility] Address: [address] [place], [place] [address] Performed By: #### 2 4323-8 #### [facility] CLIA [id number] [address] [place] [address] [place] CO2 [Moles/Vol] 27 mmol/L Normal 22-30 [facility] Comment on above: Order Comment: Specimen Type: BLOOD SPEC IMEN Ordering Facility: [facility] Address: [address] [place], [place] [address] Performed By: #### 2 4323-8 #### [facility] CLIA [id number] [address] [place] [address] [place] Creatinine [Mass/Vol] 1.75 mg/dL High 0.58-0.96 [facility] Comment on above: Order Comment: Specimen Type: BLOOD SPEC IMEN Ordering Facility: [facility] Address: [address] [place] [address] Performed By: #### 2 4323-8 #### [facility] CLIA [id number] [address] [place] [address] [place] ESTIMATED GLOMERULAR FILTRATION RATE 30 mL/min/1.73m??? Low >=60 [facility] Comment on above: Order Comment: Specimen Type: BLOOD SPEC IMEN Ordering Facility: [facility] Address: [address] [place] [address] Result Comment: Cecelia mated Glomerular Filtration Rate (eGFR) is calculated using the 2020 CKD-EPI creatinine equation. This equation utilizes serum creatinine, sex, and age as parameters. The creatinine assay has traceable calibration to isotope dilution-mass spectrometry. Refer to KDIGO guidelines for clinical interpretation. In patients with unstable renal function, e.g. those with acute kidney injury, the eGFR may not accurately reflect actual GFR. Performed By: #### 2 4323-8 #### [facility] CLIA [id number] [address] [place] [address] [place] Glucose [Mass/Vol] 74 mg/dL Normal 74-99 [facility] Comment on above: Order Comment: Specimen Type: BLOOD SPEC IMEN Ordering Facility: [facility] Address: [address] [place], [place] [address] Result Comment: The [place] [employer] (ADA) provides guidance for cutoff values for fasting glucose and random glucose. The ADA defines fasting as no caloric intake for at least 8 hours. Fasting plasma glucose results between 100 to 125 mg/dL indicate increased risk for diabetes (prediabetes). Fasting plasma glucose results greater than or equal to 126 mg/dL meet the criteria for diagnosis of diabetes. In the absence of unequivocal hyperglycemia, results should be confirmed by repeat testing. In a patient with classic symptoms of hyperglycemia or hyperglycemic crisis, random plasma glucose results greater than or equal to 200 mg/dL meet the criteria for diagnosis of diabetes. Reference: Standards of Medical Care in Diabetes 2016, [place] [employer]. Diabetes Care. 2016.39(Suppl 1). Performed By: #### 2 4323-8 #### [facility] CLIA [id number] [address] [place] [address] [place] Potassium [Moles/Vol] 4.9 mmol/L Normal 3.7-5.1 [facility] Comment on above: Order Comment: Specimen Type: BLOOD SPEC IMEN Ordering Facility: [facility] Address: [address] [place] [address] Performed By: #### 2 4323-8 #### [facility] CLIA [id number] [address] [place] [address] [place] Protein [Mass/Vol] 7.2 g/dL Normal 6.3-8.0 [facility] Comment on above: Order Comment: Specimen Type: BLOOD SPEC IMEN Ordering Facility: [facility] Address: [address] [place] [address] Performed By: #### 2 4323-8 #### [facility] CLIA [id number] [address] [place] [address] [place] Sodium [Moles/Vol] 140 mmol/L Normal 136-144 [facility] Comment on above: Order Comment: Specimen Type: BLOOD SPEC IMEN Ordering Facility: [facility] Address: [address] [place] [address] Performed By: #### 2 4323-8 #### [facility] CLIA [id number] [address] [place] [address] [place] Urea nitrogen [Mass/Vol] 60 mg/dL High 7-21 [facility] Comment on above: Order Comment: Specimen Type: BLOOD SPEC IMEN Ordering Facility: [facility] Address: [address] [place] [address] Performed By: #### 2 4323-8 #### [facility] CLIA [id number] [address] [place] [address] [place] ECG COMPLETEon 10-16-2021 ECG COMPLETE Ventricular Rate : 6 5 BPM Atrial Rate : 65 BPM P-R Interval : 172 ms QRS Duration : 114 ms Q-T Interval : 390 ms QTC Calculation(Bazett) : 405 ms Calculated P [place] : 56 degrees Calculated R [place] : -66 degrees Calculated T [place] : -106 degrees NORMAL SINUS RHYTHM LEFT AXIS DEVIATION NONSPECIFIC ST AND T WAVE ABNORMALITY ABNORMAL ECG Confirmed by PRABHJOT TOMLINSON MD (22) on 11/08/2021 12:27:03 PM NAME : ARTHUR YEN PID : [id number] : 1945 Gender : Female Race : ORD : [id number] Procedure Date : Oct 16 2021 13:48:20 Edit Date : Nov 08 2021 12:27:54 Diagnosis: NORMAL SINUS RHYTHM LEFT AXIS DEVIATION NONSPECIFIC ST AND T WAVE ABNORMALITY ABNORMAL ECG Confirmed by PRABHJOT TOMLINSON MD (22) on 11/08/2021 12:27:03 PM Test Reason : Location : 314 : J14 J1-4 Overread By : PRABHJOT TOMLINSON MD Edited By : PRABHJOT TOMLINSON MD Referred By : , Acquired by : RIVAS ALVARADO [facility] Lipid 1996 panelon 2 Cholesterol [Mass/Vol] 135 mg/dL Normal <200 [facility] Comment on above: Order Comment: Specimen Type: BLOOD SPEC IMEN Ordering Facility: [facility] Address: [address] [place], [place] [id number] Result Comment: <200 mg/dL, Desirable 200-239 mg/dL, Borderline high >239 mg/dL, High Performed By: #### 2 4331-1 #### [facility] CLIA [id number] [address] [place] [address] [place] Cholesterol in HDL [Mass/Vol] 58 mg/dL Normal >39 [facility] Comment on above: Order Comment: Specimen Type: BLOOD SPEC IMEN Ordering Facility: [facility] Address: [address] [place] [address] Result Comment: 40-5 9 mg/dL, Acceptable >59 mg/dL, High: Negative risk factor for coronary heart disease <40 mg/dL, Low: Positive risk factor for coronary heart disease Performed By: #### 2 4331-1 #### [facility] CLIA [id number] [address] [place] [address] [place] Cholesterol in LDL [Mass/Vol] 66 mg/dL Normal <100 [facility] Comment on above: Order Comment: Specimen Type: BLOOD SPEC IMEN Ordering Facility: [facility] Address: [address] [place] [address] Result Comment: <100 mg/dL, Optimal 100-129 mg/dL, Near optimal/above optimal 130-159 mg/dL, Borderline high 160-189 mg/dL, High >189 mg/dL, Very high Secondary prevention optimal LDL Cholesterol levels are recommended to be < 70 mg/dL Performed By: #### 2 4331-1 #### [facility] CLIA [id number] [address] [place] [address] [place] Cholesterol in LDL/Cholesterol in HDL [Mass ratio] 1.14 {ratio} Normal <2.54 [facility] Comment on above: Order Comment: Specimen Type: BLOOD SPEC IMEN Ordering Facility: [facility] Address: [address] [place] [address] Result Comment: Refe rence: 1. National Cholesterol Education Program ATP III Guideline At-A-Glance Quick Desk Reference: National Heart, Lung, and Blood [place]. National Institutes of Health. 2001: NIH Publication No. 01-3305. 2. An International Atherosclerosis Society position paper: global recommendations for the management of dyslipidemia: executive summary, Atherosclerosis. 2014: 232(2):410-413. Performed By: #### 2 4331-1 #### [facility] CLIA [id number] [address] [place] [address] [place] Cholesterol in VLDL [Mass/Vol] 11 mg/dL Normal <30 [facility] Comment on above: Order Comment: Specimen Type: BLOOD SPEC IMEN Ordering Facility: [facility] Address: [address] [place] [address] Performed By: #### 2 4331-1 #### [facility] CLIA [id number] [address] [place] [address] [place] Cholesterol non HDL [Mass/Vol] 77 mg/dL Normal <130 [facility] Comment on above: Order Comment: Specimen Type: BLOOD SPEC IMEN Ordering Facility: [facility] Address: [address] [place] [address] Result Comment: <130 mg/dL, Optimal 130-159 mg/dL, Near optimal/above optimal 160-189 mg/dL, Borderline high 190-219 mg/dL, High >219 mg/dL, Very high Secondary prevention optimal non HDL Cholesterol levels are recommended to be <100 mg/dL Performed By: #### 2 4331-1 #### [facility] CLIA [id number] [address] [place] [address] [place] Cholesterol.tota l/Cholesterol in HDL [Mass ratio] 2.33 {ratio} Normal <5.10 [facility] Comment on above: Order Comment: Specimen Type: BLOOD SPEC IMEN Ordering Facility: [facility] Address: [address] [place] [address] Performed By: #### 2 4331-1 #### [facility] CLIA [id number] [address] [place] [address] [place] FASTING TIME 12 hrs Normal [facility] Comment on above: Order Comment: Specimen Type: BLOOD SPEC IMEN Ordering Facility: [facility] Address: [address] [place] [address] Performed By: #### 2 4331-1 #### [facility] CLIA [id number] [address] [place] [address] [place] Triglyceride [Mass/Vol] 54 mg/dL Normal <150 [facility] Comment on above: Order Comment: Specimen Type: BLOOD SPEC IMEN Ordering Facility: [facility] Address: [address] [place] [address] Result Comment: <150 mg/dL, Normal 150-199 mg/dL, Borderline high 200-499 mg/dL, High >499 mg/dL, Very high Performed By: #### 2 4331-1 #### [facility] CLIA [id number] [address] [place] [address] [place] XR CHEST 2V FRONTAL/LATon XR CHEST 2V FRONTAL/LAT * * *Final Report* * * DATE OF EXAM: Oct 16 2021 2:00PM JIX 5291 - XR CHEST 2V FRONTAL/LAT / PROCEDURE REASON: multiple diagnoses * * * * Physician Interpretation * * * * EXAMINATION: CHEST RADIOGRAPH (2 VIEW FRONTAL and LATERAL) CLINICAL HISTORY: Coronary artery disease involving false pass coronary artery of false pass heart without angina pectoris Nonrheumatic aortic valve insufficiency MQ: [id number]_6 EXAM DATE/TIME: 10/16/2021 2:00 PM COMPARISON: PA and lateral CXR dated 10/05/2020 RESULT: Lines, tubes, and devices: None. Lungs and pleura: A left pleural effusion has changed little in size. There has been decrease in size without resolution of a right pleural effusion. There are bibasilar airspace opacities most commonly secondary to nonspecific atelectasis or possibly pneumonia/aspiration. There is a calcified granuloma at the left lung apex. No pneumothorax is identified. Cardiomediastinal silhouette: Stable cardiomediastinal silhouette. Status post median sternotomy, tricuspid annuloplasty and mitral valve replacement. The cardiac silhouette appears slightly enlarged. Bones and soft tissues: The vertebral body heights appear symmetric and well-maintained. IMPRESSION: Compared to 10/05/2020, decrease in size without resolution of a right pleural effusion and stable left pleural effusion. Persistent bibasilar airspace opacities most commonly secondary to nonspecific atelectasis or pneumonia/aspiration. Radiographic follow-up is suggested. Business Support Coordinator: JUAN DIEGO Transcribe Date/Time: Oct 16 2021 2:56P Dictated by : MAURA CANALES MD This examination was interpreted and the report reviewed and electronically signed by: MAURA CANALES MD on Oct 16 2021 3:00PM EST [id number] Normal [facility] Coding Summaryon 04-22-2021 Coding Summary HTMLBase 64 BzzdjdhdFSy7kKs+PGhlYWQ+PE1FVE CyQ20ojVZouC2WZ6tPXW4EDKZSBOCE BQ8MVB4opVI5RWumM3WvxaNt OzjpyLUnKE01KJn0CZF9xHrdBLdcvS 0rvHMyX9p3VfNjOA65aH61CFmcCXHt MtL6EgBzwbdrhUDj E2wgNyAloPWlYxl+PHRhYmxlIHdpZH RqXDhtVYHxGfJtsOveVM6hCe9jBUOy LWNvbGxhcHNlOiBj u0bcQRIiPStaWC1vaFluV3CszZZ3BN Cfg0m0Fy67xHN+NCRvOWF7iRamFNnp s011LgLoi9zaDUG3 cLEqPBkdLQB4P34mr8P6BMJgTWVfSW T7oMH0yD5aaCtwnegwR9ZwbOXkFqU6 TWI7tPHskN2edKxh dedukI9fSco+C67JQH6XOLEOTS2MNw z5Q4PaVqeazFQ+KH67KUGxFE61nFMm mVBxp6kuaPr9QdFx OFIdCZW9mMocIQzxb2PnOWIuH51luP Plm3X5DSChvSufgRCqUqQeqYY7xM8u KLbuafrnp4cocnky Kkizw7fzpy64gB42P53oLXcvYPKiVU T1ZUIbYBPnpMjxnw2smL6qTj0+IDxj k9col2mawWg6JxRw LIPfnoEtpCasXMS5v3OwHj05N1AgyK ynx3FfQnc7ys65aYSnq3M7rCJ9YSub DUQtfY3zIPuhBlN8 MCWxSgDagO30tMVyCQcpBe0kfNrlcP zbLV2oBPHmwuwsDZTbmA7iCNQgwUSi kCorZU0oTSOjzjec g203DxZlQTO2CTDpxXGiI2DewH0yBb CiBNGvRKDbJ7JzwIIkTLatG828XYzj HzI4JUSqaaMxO5Qg YVYfpMcxYlN3d0W9Qt4Kh0GgbfxqOG D2TWizPQSyXqL6FtAbJmF1L9KoKoa5 THHyvNjiXU2cX7Av YIEvcfkfnemspEP7QQMtRPFsyV40yT GzSTzoGa9fz3I6p373RYTqXVKedU50 Wq2jlNimQUIqpETA uF0zoeybh1cduzytNmZxDKQaYWv2IL m0UNEhwXaoWwNdKNJ1TzO9VJB9sCBe xF6jyHqhwfhgkO1v Oyc+N36muT8pUDS7JCF7fdlxEIIqgs JrAZ37BE43M2UzWuycfVGllDS+PGRp dkMuuCfxEX7rJnTk t9hpn1DfDImuL7JtITOlUZuvMon6XF HnXXO1fLN4yF7lHLVkNCyae6B3mCJ5 N9XaluAjzl2wf0si BBAeOFijL52lcBNlc1H3ZWRslQZ5XZ OaxZtsNgGusN54Rux+EBIodQlhb0Wm Vneax0jwj2vjnHx7 BrHcPIKntzEqbRmxFHY3u6MiLz60Q7 4oYFheJZOnMYWsPLHvLSDflPnjoa5x wB5uSj7+PGNvbCB3 zGC3rF4mIQFwQnT2OVckP987VeQbaP WvKvxjp2arn4pmhHo0MgZgWIKfkrTd dYhfBEE0p3PhIl98 O67wVHelSTDkBFMyWGDfXPGonHpwul 1hvC3iGx5+LE6gt2qcoq09xG16dNB+ EHLbWXG8vYyfGGwk RPGwaW9gMBlgMgB5QYCxNdQyeV61cZ LsFLunPe7plZygdKqdYG8gUWYrysgt s609OnUgl4kaHOOb jZOfQBxuKFM8C27fe7Y2DHVrZJPoXI U0yZN3iJ9koZtjiehblQEiuRgsffNe cChbSUybKKesJ218 OOOgzKnhYgRfhWlhkzNeHtEnGJq4V2 IuRxn5MLUxcPetNR1ivXFzIKusXl3s cKtpuKwgAB0sOCIy tyjbj811OgPia8kmRPJwiLTzVBthWG D1G22ip1K2GUJfFSBeOVX0tFM4aK2y bGlnbjogbGVmdDsg muFvzWayZJjhAWelT344CQJcxNfsYf FhfxPnPVFfmNT7DV74FI21dJPfs3G5 sNF7I9RcIVXcftyy pwavhGE3UYChLKTtqV77Gs3fbYjlQh 1rCCRlDHF5QNOiaQXsQ0SnfQ7kKiMm INLkGKCnG2XfbXOy QWqqY323TKfhQeN0MNTplwDpC4KcZD VhjSsiJmI6l1E9Zq4UN5W1YA07JD63 iOUry3I9fRP4N3Sj EVPemgpqmzoaiRZ6FMJiYGGuqH22Vr 8ltXwyYv0xPDGvPVX2ZVMzeVXqC8Ip tJ2mPlChMMQwXNBt P9XifMOyXNrcK465YFflBlU3FKBprf NiQ4KbEGBgoCglGcO4o4C6Sk4XNQv6 AG74MM91nZOem0Q8 fXB5H4XpXDLeuvedqalucMP6WSGzHK CpyB17Nf1qtDvoRi4lRBFzRNC1QPIn jVEtE3OqyA2uLkSm DUTsJLSuU0WjkWPsNYwoR616PIvcGo B4FERohrYxE8GmZRUsrAirYxI4b4X1 Qy6TXISdRQ47PUZ0 cMT9YT86RL43U9OuRitpuJLftEX+PH RhYmxlIHdpZHRoPScxMDAlJyBzdHls JQ6uGg5dUJXgNZEm oOurvTIbWrBbc9ffELWdBFthHT9noP erV6QlnGQ7SFQyz2g8Gl60S61gX0Vh dXA+FSQbeXI2dCX2 jW3uGbWqIcW6KWuzC570ZhBlsJIbDb uxx9bbf8lzrAw0TwS6CMOpswNzvTmo WYX3a9NlAq25D10y IKwkGCIrCEShJDSfHYTfyZrtgu1vsT 9wIi8+TAKhzYC6nBF7eS5qJvThTdF3 CWocW256CxZizQCr Bqope2jni1jyyOe3ZdIyUUTybsNomO ukAIO4b7UvKw74V2OwvSlvw9VcVyb7 qh52qPRei7D5uUF4 O4BhBCFpyldlpTIavGmtXN7aBHTptu xmANXcaO8yILJsL6x8ZqFoWyY2ZJjz B8HwfrI9CPKkcYRh YNyzOST3H54mf9O1VEXhQNFxHQU3xD Y6xK0iiJmwdnktdFRccKlppwEplSsu FYexRXucE165UWTp mArcVLEnhD6aSRXjgMAdlAdbLR1uIN TdsgkaYwKXIM5KAcvHLbdkEf8KOXfP OzMEZJ3TSTuhmVG+ NKVuXVD6yJihDKkmEZYegN0iMNNaP6 p2OgKzTuN8GCceD3MeVTUkcjkdZh76 pY2nQfDzDxX6KAyi R5LcbfP6WEDduKEeURruUOX4J20in3 M1CYMzACCeMMD3lVE3dU7yyUptnzwt bGVmdDsgdmVydGlj VCesMDduB669SDSxlHpmRrE2XyL6Ne M3DHW5G0GgZon2GNNygCdmIP0itFDg NUisBd2ujCaazYzu LS5sOPPyzrvtBKHwsC6gPJIsyYXrnX yxVN7tVLJalphvp862KyPyTKH0QUYi sQKlF6UncO3bCeXz AJDcCCXwZ6FcqVJoNSmfI301XAvlKk B8TAQskfMzI8BuRVCxhOrtGbY4m8O2 Un25CsUCYBUgctaz dGQ+BEGsXPB5mXnrSDbkGHEwwT1bYF KjG9o3VbZuOcF3SEleQ3GiNKFolnda Vl84vM7hRzLpRjC1 VOorN7IsbrU9UEEjtDRjHGfeTXB2B4 1vv7P2JTUbLTYfIOP8qCC9iN9cmSjt bjogbGVmdDsgdmVy wImrXIkcSBomI687FOHbvOpcLlESRG FMRTwvdGQ+GAGtWKQ7oPfqVMurGKMy vI7aWAAtP7x6QwLg IfV7JTtsM2KdBEHqkjfzHg30eB6hSz NqViU1TZptY2KntkL1OJXqaEZqVBvs LNJ4X05mt9R4BBKp XKQmWUP4iJQ3tT3cwGjqbgnbiSPnnB ayenVtlTddYWsrPIsxR654URPhaXot Lv2FOE87QE69Y9Xe PjwvdGFibGU+PHRhYmxlIHdpZHRoPS azCGCgQpQucNktSH2cWv8xZDSwLZUa sMjtvISkXsHna0kc OMEkGYhdFN0xrZswO8IvxPJ0QVRyy6 x7Bs70S75hI1TfwHQ+HITtoSW6nBO8 oJ1zQzXrPqW6DSdw I889QmApqLJrIfznk5kfj7szfTv4Rf HgFXZfkzKtyThlEIC2x6JySc80N42o IHdpZHRoPSIyMCUi KKXdnJmyue7ypA3rRy9+EJXihNK8eD Q8gG9lJcBnSfK0LFpkG280FqMtjJWl EumnU28vH5TzzDI+ OGWiOgn8BTKyrCsyBT6nsVUjGDsvHm 9iLUQ2XwAqRlUbVBtuZ6PfHJFtesne bkoeiAL3FJYuOEWw iK79Ny7srDzsRi1aQHHaJXF3VJWufN ChQ9ZbuL3gWqBeLOGdRWOeQ0IouKRw SEvwS365AEdmTjT3 FFKrhsSqL9QlHDBayDfrXrP6y0F4Tu 5RyHgvzGYnLR1gJjGnAIh8O8TkPny0 KEBwjNyiQJ5wiUFr FKzbPl0feOoqjDjwTW3qWLJrbamfy0 17NrEfw9dpCZXymKZlVHixRTZ4A82x n5Z4RBRcOYHaFEQ4 pMS8jY2yaWfxvxjnnUSseSbivvVlcO weATjuOKhcO349YRFftVzhGsKYBph0 U2WaZzc6MLJsrVti PP9bnBWvAArvLa8fhXujsUsvCV6aWU Bvubltw312UcDhh6fyEASjyLJjNSst VIV5L57os9I2FCUa OFCfJGR1kUJ6tI3ghSsxkynfuRHxpR yvfaIzbVmcFUppVOljL070UVXuzSas Os7TFzy1T2PwAir3 ZPTxaUsoST0nbDTrWShcNo7kfFhwtU chPM1mJLBczvhdq862VfGkr3beUKHq bZXuKOutBVT9R55k y8C4XMVjVFPhVXT9wIK3oZ4abMkmfp cuwEZqqIkrgpGzqJllHFrpIGiwH234 IHRvcDsnPlBheWVy OjwvdGQ+XM13lp25X5FrScakXbx3PZ OvVNE6mFD6jD3gFEEeTByrj6L7yKT3 D3OdvfIvkv4mb5ux YXB (more content not included)... [facility] Consent Formson 04-22-2021 Consent Forms [id number][facility]2021 Provider Orders [id number][facility] - Nurseon 04-06 Progress Note - Nurse pt tolerated infusion with no signs and symptoms of reaction. pt discharged with understanding of instructions. [Electronically Signed on: 05/29/2021 12:07 EST] Christian Padilla RN [Verified on: 05/29/2021 12:07 EST] Christian Padilla RN [facility]06 SARS-CoV-2 (COVID-19) RNA LYNDSEY+probe Ql (Unsp spec) Detected Critically abnormal NOT DETECTED [facility] Comment on above: Result Comment: This test is not yet andria roved or cleared by the [place] FDA. When there are no FDA-approved or cleared tests available, and other criteria are met, FDA can make tests available under an emergency access mechanism called an Emergency Use Authorization (EUA). The EUA for this test is supported by the Wolf of Health and Human Service's (HHS's) declaration that circumstances exist to justify the emergency use of in vitro diagnostics for the detection and/or diagnosis of the virus that causes COVID-19. This EUA will remain in effect (meaning this test can be used) for the duration of the COVID-19 declaration justifying emergency of IVDs, unless it is terminated or revoked by FDA (after which the test may no longer be used). Performed By: #### C VDTBH #### [facility] [address] [place] [address] Dr. Joyce Clemons INFLUENZA A AND B AGon 04-15 INFLUANEGH SEE BELOW Normal [facility] Comment on above: Result Comment: Negative for Flu A prote in angiten. Infection due to Flu A cannot be ruled out. Flu A angiten in the sample may be below the detection limit of the test. Performed By: #### I NFLUAB #### [facility] [address] [place] [address] Dr. Joyce Clemons INFLUBNEG SEE BELOW Normal [facility] Comment on above: Result Comment: Negative for Flu B prote in antigen. Infection due to Flu B cannot be ruled out. Flu B antigen in the sample may be below the detection limit of the test. Performed By: #### I NFLUAB #### [facility] [address] [place] [address] Dr. Joyce Clemons INFLUENZA A AG Negative Normal NEGATIVE SEE COMMENT [facility] Comment on above: Performed By: #### INFLUAB #### [facility] [address] [place] [address] Dr. Joyce Clemons INFLUENZA B AG Negative Normal NEGATIVE SEE COMMENT [facility] Comment on above: Performed By: #### INFLUAB #### [facility] [address] [place] [address] Dr. Joyce Clemons INTERNAL CONTROLS Within Normal Limits Normal Within Normal Limits [facility] Comment on above: Performed By: #### INFLUAB #### [facility] [address] [place] [address] Dr. Joyce Clemons Q - CULTURE,URINE,ROUTINEon 04-15-2021 CULTURE, URINE, ROUTINE SEE NOTE Abnormal [facility] [employer] Comment on above: Order Comment: [facility] 00R Testing performed at: QPT, [facility], [address] [place] [address], [address] [place] [address], [id number], Bird Tender: Breezy Palomo MD [facility] Collection Date/Time: [facility] Results Received Date/Time: [id number] [facility] Reported Date/Time: [id number] Result Comment: CULT URE, URINE, ROUTINE Micro Number: [id number] Test Status: Final Specimen Source: Not given Specimen Quality: Adequate Result: Greater than 100,000 CFU/mL of Escherichia coli E.coli INT BIA AMOX/CLAVULANATE S 8 AMPICILLIN I 16 AMP/SULBACTAM S 4 CEFAZOLIN NR <=4 2 CEFEPIME S <=1 CEFTRIAXONE S <=1 CIPROFLOXACIN S <=0.25 ERTAPENEM S <=0.5 GENTAMICIN S <=1 IMIPENEM S <=0.25 LEVOFLOXACIN S <=0.12 NITROFURANTOIN S <=16 PIP/TAZOBACTAM S <=4 TOBRAMYCIN S <=1 TRIMETHOPRIM/SULFA S <=20 S=Susceptible I=Intermediate R=Resistant * = Not Tested NR = Not Reported NN = See Therapy Comments THERAPY COMMENTS Note 1: For infections other than uncomplicated UTI caused by E. coli, K. pneumoniae or P. mirabilis: Cefazolin is resistant if BIA > or = 8 mcg/mL. (Distinguishing susceptible versus intermediate for isolates with BIA < or = 4 mcg/mL requires additional testing.) Note 2: For uncomplicated UTI caused by E. coli, K. pneumoniae or P. mirabilis: Cefazolin is susceptible if BIA <32 mcg/mL and predicts susceptible to the oral agents cefaclor, cefdinir, cefpodoxime, cefprozil, cefuroxime, cephalexin and loracarbef. Performed By: #### 6 304R #### [facility] Default [address] [place] [address] BNPon 09-15-2020 Natriuretic peptide B (Bld) [Mass/Vol] 91575.0 pg/mL Critically high <=1,800.0 [facility] Comment on above: Result Comment: test repeated, critical value verified Performed By: #### C MADM, CMP, BNP #### [facility] [address] [place] [address] Huy Charley CARDIAC LYNNE ADMITon 021 CK [Catalytic activity/Vol] 67 U/L Normal 30-135 [facility] Comment on above: Performed By: #### CMADM, CMP, BNP #### [facility] [address] [place], [place] [address] Huy Charley CK.MB [Mass/Vol] 2.32 ng/mL Normal <=2.37 [facility] Comment on above: Performed By: #### CMADM, CMP, BNP #### [facility] [address] [place] [address] Huy Wallaceen HSTROP 27.7 pg/mL Normal 4.0-35.5 [facility] Comment on above: Result Comment: CUT-OFF POINTS HAVE BEEN ESTABLISHED BASED ON THE FOURTH UNIVERSAL DEFINITIONS OF MYOCARDIAL INFARCTION. THE UPPER REFERENCE LIMIT (URL) OF TROPONIN, DEFINED THE 99TH PERCENTILE OF cTnI DISTRIBUTION IN A REFERENCE POPULATION, HAS BEEN CONFIRMED THE DECISION THRESHOLD FOR CT DIAGNOSIS. Performed By: #### C MADM, CMP, BNP #### [facility] [address] [place], [place] [address] Huyingrid Whitehead STEPHIE 328.0 ng/mL Critically high <=61.5 [facility] Comment on above: Result Comment: test repeated, critical value verified Performed By: #### C MADM, CMP, BNP #### [facility] [address] [place], [place] [address] Huyingrid Whitehead CBC AUTO DIFFon 09-15-2020 BASO # 0.1 103/ul Normal 0.0-0.1 [facility] Comment on above: Performed By: #### CBC ####[facility] ital [address] [place] [id number] Charley Basophils/100 WBC (Bld) 0.7 % Normal 0.2-2.0 [facility] Comment on above: Performed By: #### CBC ####[facility] ital Pcdkdwdwqq[address] [place] [id number] Charley EO # 0.2 103/ul Normal 0.0-0.7 [facility] Comment on above: Performed By: #### CBC ####[facility] ital Fubuwqlarm[address] [place] [id number] Charley Eosinophils/100 WBC (Bld) 1.9 % Normal 0.9-7.0 [facility] Comment on above: Performed By: #### CBC ####[facility] ital Odfulfbpoo[address] [place] [id number] Charley Erythrocyte distribution width (RBC) [Ratio] 17.3 % Critically high 11.0-15.0 [facility] Comment on above: Performed By: #### CBC ####[facility] ital Aksdijcnmg[address] [place] [id number] Charley Hematocrit (Bld) [Volume fraction] 36.5 % Normal 36.0-48.0 [facility] Comment on above: Performed By: #### CBC ####[facility] ital Gdsoeeriih[address] [place] [id number] Charley Hemoglobin (Bld) [Mass/Vol] 11.1 g/dL Critically low 12.0-16.0 [facility] Comment on above: Performed By: #### CBC ####[facility] W[address]wipp[address]yt[address] [place] [id number] Charley IG # 0.02 10e3/ul Normal 0.00-0.03 [facility] Comment on above: Performed By: #### CBC ####[facility] Kvvugcyipt[address] Char[place] IG % 0.2 % Normal 0.0-0.5 [facility] Comment on above: Performed By: #### CBC ####[facility] Qrcdjiwiyn[address] Charley LYMPH # 0.7 103/ul Critically low 1.2-3.8 [facility] Comment on above: Performed By: #### CBC ####[facility] Epyydhiqry[address] [place] Lymphocytes/100 WBC (Bld) 8.4 % Critically low 20.5-60.0 [facility] Comment on above: Performed By: #### CBC ####[facility] Nlklhnskvd[address] [place] MANUAL DIFF REQ NO Normal [facility] Comment on above: Performed By: #### CBC ####[facility] Qidcflkxtk[address] [place] [phone] Charley MCH (RBC) [Entitic mass] 29.8 pg Normal 26.7-34.0 [facility] Comment on above: Performed By: #### CBC ####[facility] Xydhewerjl[address] [place] MCHC (RBC) [Mass/Vol] 30.4 g/dL Normal 29.9-35.2 [facility] Comment on above: Performed By: #### CBC ####[facility] ital Ddhynlaprz[address] [place] [phone] Charley MCV (RBC) [Entitic vol] 97.9 fL Normal 81.0-99.0 [facility] Comment on above: Performed By: #### CBC ####[facility] ital [address] [place], [place] [address]Tqyicf Charley MONO # 0.5 103/ul Normal 0.3-0.8 [facility] Comment on above: Performed By: #### CBC ####[facility] ital [address] [place] [id number] Charley Monocytes/100 WBC (Bld) 6.4 % Normal 1.7-12.0 [facility] Comment on above: Performed By: #### CBC ####[facility] [address] [place], [place] [id number] Charley NEUT # 6.8 103/ul Critically high 1.4-6.5 The [facility] Comment on above: Performed By: #### CBC ####[facility] [address] [place], [place] [address]Gerken Charley Neutrophils/100 WBC (Bld) 82.4 % Critically high 43.0-75.0 [facility] Comment on above: Performed By: #### CBC ####[facility] [address] [place] [id number] Charley Platelet mean volume (Bld) [Entitic vol] 11.0 fL Normal 9.5-13.5 [facility] Comment on above: Performed By: #### CBC ####[facility] [address] [place] [id number] Charley PLT 282 103/ul Normal 150-450 [facility] Comment on above: Performed By: #### CBC ####[facility] [address] [place], [place] [address]Gerken Charley RBC 3.73 106/ul Critically low 4.20-5.40 The [facility] Comment on above: Performed By: #### CBC ####[facility] ital Vd[address]bvx[address] [place], [place] [address]Ocupaa Karen WBC 8.3 103/ul Normal 4.0-11.0 [facility] Comment on above: Performed By: #### CBC ####[facility] [address] [place], [place] [address]YahpioHuy Whitehead OCC BLD IMMUNO SCREENon 09-04 OCCULT BLOOD Positive Abnormal NEGATIVE [facility] Comment on above: Performed By: #### OBSCRN #### [facility] Laboratory [address] [place], [place] [address] Huy Charley PROF 14(COMP METB)on 021 Albumin [Mass/Vol] 2.8 g/dL Critically low 3.5-5.0 [facility] Comment on above: Performed By: #### CMADM, CMP, BNP #### [facility] Laboratory [address] [place] [id number] Huy Charley Albumin/Globulin [Mass ratio] 0.7 {ratio} Normal [facility] Comment on above: Performed By: #### CMADM, CMP, BNP #### [facility] Laboratory [address] [place] [id number] Huy Charley ALP [Catalytic activity/Vol] 142 U/L Critically high 38-126 [facility] Comment on above: Performed By: #### CMADM, CMP, BNP #### [facility] Laboratory [address] [place] [id number] Huy Charley ALT [Catalytic activity/Vol] 22 U/L Normal 9-52 [facility] Comment on above: Performed By: #### CMADM, CMP, BNP #### [facility] Laboratory [address] [place], [place] [address] Huy Charley Anion gap [Moles/Vol] 11.4 mmol/L Normal [facility] Comment on above: Performed By: #### CMADM, CMP, BNP #### [facility] Laboratory [address] [place] [id number] Huy Charley AST [Catalytic activity/Vol] 28 U/L Normal 14-36 [facility] Comment on above: Performed By: #### CMADM, CMP, BNP #### [facility] Laboratory [address] [place] [address] Huy Charley Bilirubin [Mass/Vol] 0.4 mg/dL Normal 0.2-1.3 [facility] Comment on above: Performed By: #### CMADM, CMP, BNP #### [facility] Laboratory [address] [place] [address] Huy Charley Calcium [Mass/Vol] 9.6 mg/dL Normal 8.4-10.2 [facility] Comment on above: Performed By: #### CMADM, CMP, BNP #### [facility] Laboratory [address] [place] [address] Huy Charley Chloride [Moles/Vol] 107 mmol/L Normal 98-107 [facility] Comment on above: Performed By: #### CMADM, CMP, BNP #### [facility] Laboratory [address] [place] [address] Huy Charley CO2 [Moles/Vol] 29.9 mmol/L Normal 22.0-30.0 [facility] Comment on above: Performed By: #### CMADM, CMP, BNP #### [facility] Laboratory [address] [place] [address] Huy Charley Creatinine [Mass/Vol] 1.52 mg/dL Critically high 0.52-1.04 [facility] Comment on above: Performed By: #### CMADM, CMP, BNP #### [facility] Laboratory [address] [place] [address] Huy Charley EGFR-AF MICRONESIAN 40 mL/min/1.73m2 Critically low >=60 [facility] Comment on above: Performed By: #### CMADM, CMP, BNP #### [facility] Laboratory [address] [place] [address] Huy Charley EGFR-NON AF MICRONESIAN 33 mL/min/1.73m2 Critically low >=60 [facility] Comment on above: Performed By: #### CMADM, CMP, BNP #### [facility] [address] [place] [address] Huy Charley Globulin (S) [Mass/Vol] 4.3 g/dL Normal [facility] Comment on above: Performed By: #### CMADM, CMP, BNP #### [facility] Laboratory [address] [place] [phone] Huy Charley Glucose [Mass/Vol] 206 mg/dL Critically high 74-106 [facility] Comment on above: Performed By: #### CMADM, CMP, BNP #### [facility] Laboratory [address] [place] [address] Huy Charley Potassium [Moles/Vol] 4.3 mmol/L Normal 3.4-5.0 [facility] Comment on above: Performed By: #### CMADM, CMP, BNP #### [facility] Laboratory [address] [place] [address] Huy Charley Protein [Mass/Vol] 7.1 g/dL Normal 6.1-8.2 [facility] Comment on above: Performed By: #### CMADM, CMP, BNP #### [facility] [address] [place] [address] Huy Charley Sodium [Moles/Vol] 144 mmol/L Normal 137-145 [facility] Comment on above: Performed By: #### CMADM, CMP, BNP #### [facility] [address] [place] [address] Huy Charley Urea nitrogen [Mass/Vol] 38.0 mg/dL Critically high 7.0-17.0 [facility] Comment on above: Performed By: #### CMADM, CMP, BNP #### [facility] [address] [place] [address] Huy Charley Urea nitrogen/Creatin ine [Mass ratio] 25.0 mg/mg Normal [facility] Comment on above: Performed By: #### CMADM, CMP, BNP #### [facility] [address] [place] [phone] Huy Charley PROTIMEon 09-15-2020 INR Coag (PPP) [Relative time] 1.61 {INR} Normal [facility] Comment on above: Performed By: #### PTT, PT #### [facility] [address] [place] [phone] Huy Charley INR GUIDELINES SEE BELOW Normal [facility] Comment on above: Result Comment: DESIRED INR: 2.0 - 3.0 C ONDITIONS NOT LISTED BELOW 2.5 - 3.5 FOR PROSTHETIC HEART VALVE REPLACEMENT 2.5 - 3.5 RECURRENT THROMBOSIS Performed By: #### P TT, PT #### [facility] [address] [place], [place] [address] Huy Whitehead PT Coag (PPP) [Time] 17.2 s Critically high 9.0-11.6 [facility] Comment on above: Performed By: #### PTT, PT #### [facility] Laboratory [address] [place], [place] [address] Huy Whitehead PTTon 09-15-2020 aPTT Coag (Bld) [Time] 31.2 s Normal 22.3-36.2 [facility] Comment on above: Performed By: #### PTT, PT #### [facility] [address] [place], [place] [address] Huyingrid Whitehead XR CHEST 1 Von 09-15-2020 XR CHEST 1 V EXAM: XR CHEST 1 V HISTORY: SHORTNESS OF BREATH COMPARISON: 03/26/2011 TECHNIQUE: AP upright portable chest FINDINGS: There are small bilateral pleural effusions and mild interstitial pulmonary edema. There is left lower lobe retrocardiac airspace disease. Subsegmental right perihilar atelectasis is noted. There is minimal cardiomegaly and coronary bypass grafting changes. IMPRESSION: 1. Mild interstitial pulmonary edema with small bilateral pleural effusions. 2. Left lower lobe retrocardiac opacification, probably atelectasis or related to congestive changes, less likely pneumonia. Recommend follow-up to resolution. There is also subsegmental right perihilar atelectasis. Electronically authenticated by: SAM ZIMMERMAN Date: 2020-09-15 14:49 Normal [facility] PROF CHEM 8 (BAS METB)on Anion gap [Moles/Vol] 9.2 mmol/L Normal [facility] Comment on above: Performed By: #### BMP #### [facility] Laboratory [address] [place], [place] [address] Huy Whitehead Calcium [Mass/Vol] 9.5 mg/dL Normal 8.4-10.2 [facility] Comment on above: Performed By: #### BMP #### [facility] Laboratory [address] [place] [phone] Huy Charley Chloride [Moles/Vol] 111 mmol/L Critically high 98-107 [facility] Comment on above: Performed By: #### BMP #### [facility] Laboratory [address] [place] [address] Huy Charley CO2 [Moles/Vol] 31.3 mmol/L Critically high 22.0-30.0 [facility] Comment on above: Performed By: #### BMP #### [facility] Laboratory [address] [place] [address] Huy Charley Creatinine [Mass/Vol] 1.56 mg/dL Critically high 0.52-1.04 [facility] Comment on above: Performed By: #### BMP #### [facility] Laboratory [address] [place] [address] Huy Charley EGFR-AF MICRONESIAN 39 mL/min/1.73m2 Critically low >=60 [facility] Comment on above: Performed By: #### BMP #### [facility] Laboratory [address] [place] [address] Huy Charley EGFR-NON AF MICRONESIAN 32 mL/min/1.73m2 Critically low >=60 [facility] Comment on above: Performed By: #### BMP #### [facility] [address] [place] [address] Huy Charley Glucose [Mass/Vol] 89 mg/dL Normal 74-106 [facility] Comment on above: Performed By: #### BMP #### [facility] Laboratory [address] [place] [address] Huy Charley Potassium [Moles/Vol] 4.5 mmol/L Normal 3.4-5.0 [facility] Comment on above: Performed By: #### BMP #### [facility] Laboratory [address] [place] [address] Huy Charley Sodium [Moles/Vol] 147 mmol/L Critically high 137-145 [facility] Comment on above: Performed By: #### BMP #### [facility] [address] [place], [place] [address] Huy Whitehead Urea nitrogen [Mass/Vol] 53.0 mg/dL Critically high 7.0-17.0 [facility] Comment on above: Performed By: #### BMP #### [facility] [address] [place], [place] [address] Huy Whitehead Urea nitrogen/Creatin ine [Mass ratio] 34.0 mg/mg Normal [facility] Comment on above: Performed By: #### BMP #### [facility] Laboratory [address] [place], [place] [address] Huy Whitehead FOOT LEFT 2 VWSon 06-04-2017 FOOT LEFT 2 VWS [facility] [place] [id number] Patient Name: ARTHUR YEN : 1945Sex: FAge: Race: WhiteMRN: [id number]. Location: 84Patient Status: Date: 06/04/2017 9:30:00 AMCompleted Date: 06/04/2017 09:34 AMRequesting Provider: FELIPE NINO Attending Provider: Report Copy To: Signs & Symptoms: M79.672 Pain in left foot [id number]: AthenaComments: , , Views (X-RAY, FOOT): AP, Lateral , , , Ordering Provider - FELIPE NINO MD , Exam: FOOT LEFT 2 VWSAccession #: [id number] FOOT LEFT 2 VWS 06/04/2017 9:34 AM EST SIGNS AND SYMPTOMS: M79.672 Pain in left foot I10 TECHNOLOGIST COMMENTS: History of left foot surgery 04/29/2017. Ortho follow up. QUESTION FOR THE RADIOLOGIST: , , Views (X-RAY, FOOT): AP, Lateral , , , Ordering Provider - FELIPE NINO MD , PROTOCOL: AP(PA) and Lateral views were obtained. COMPARISON: April 22, 2017 FINDINGS: Soft tissues:Swelling about the big toe amputation which was done obliquely at the distal midshaftExtensive arterial vascular calcifications consistent with diabetes Bones:Big toe amputation as aboveOsteoporosisNonspecific osteoarthropathy about the metatarsals Joints:Mild scattered arthritis IMPRESSION: Status post big toe amputation with soft tissue swelling Electronically signed by:Jackie Chicas. Transcribed by: [email or web address], User Resident: Electronically Signed by: JACKIE CHICAS @ 06/04/2017 11:38 AM Normal [facility] Comment on above: Order Comment: , , Views (X-RAY, FOOT): AP, Lateral , , , Ordering Provider - FELIPE NINO MD , Discharge Summaryon 05-06-19 Discharge Summary 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 The patient wasadmitted to the [facility] under the OrthopedicSurgery Service. Infectious Disease was consulted for antibioticmanagement and Internal Medicine was consulted for diabetes management.During the patient's hospital course, she was kept on IV antibiotics, whilewe waited for her great toe to demarcate. Vascular studies were alsoobtained, which were unremarkable. When we were confident that no more ofthe foot would be involved, we took the patient to the operating room forleft great toe transmetatarsal amputation. There is healthy bleedingtissue at the conclusion of the procedure. An incisional wound VAC wasplaced, which was removed prior to discharge, as the patient was dischargedhome in stable condition on 05/01/2017, and was afebrile at that time.DISCHARGE INSTRUCTIONS:1. Nonweightbearing left lower extremity.2. Daily dry dressing changes.3. Follow up in clinic in [address] Nino.4. Take Lovenox as prescribed for DVT prophylaxis.5. Call the Orthopedic Surgery resident on-call with any questions or concerns prior to followup appointment.Electronically Signed by:Felipe Nino MD 05/14/2017 04:33 P Felipe Nino MD I have reviewed this discharge summary and confirmed the resident'sdocumentation. Please note that there may be additional documentation fromme. Date Dict: 05/05/2017/12:20 P/Marilyn Almodovar, MDDate Trans: 05/06/2017 08:32 A/Genesis_JN:[id number]: Self Referred Normal [facility] BASIC METABOLIC PANELon 04-07 Calcium 8.6 mg/dL Normal 8.6-10.3 [facility] Comment on above: Order Comment: No: Do not add to previou s draw Performed By: #### 6 2586 ####[facility] [place] [address], [facility] Chloride 109 mmol/L High 98-107 [facility] Comment on above: Order Comment: No: Do not add to previou s draw Performed By: #### 6 2586 ####[facility] [place] [address], [facility] CO2 23 mmol/L Normal 21-31 [facility] Comment on above: Order Comment: No: Do not add to previou s draw Performed By: #### 6 2586 ####[facility] [place] [address], [facility] Creatinine 2.66 mg/dL High 0.60-1.20 [facility] Comment on above: Order Comment: No: Do not add to previou s draw Performed By: #### 6 2586 ####[facility] [place] [address], [facility] eGFR (black) 22 ml/min/1.73sq m Abnormal >60 [facility] Comment on above: Order Comment: No: Do not add to previou s draw Result Comment: Calc ulation may not be valid for patients over 70 years Performed By: #### 6 2586 ####[facility] [place] [address], [facility] eGFR (non-black) 18 ml/min/1.73sq m Abnormal >60 [facility] Comment on above: Order Comment: No: Do not add to previou s draw Result Comment: Calc ulation may not be valid for patients over 70 years Performed By: #### 6 2586 ####[facility] [place] [address], [facility] Glucose mass conc 223 mg/dL High 70-100 [facility] Comment on above: Order Comment: No: Do not add to previou s draw Performed By: #### 6 2586 ####[facility] [place] [address], [facility] Potassium molar conc 3.9 mmol/L Normal 3.5-5.1 [facility] Comment on above: Order Comment: No: Do not add to previou s draw Performed By: #### 6 2586 ####[facility] [place] [address], [facility] Sodium 138 mmol/L Normal 136-145 The [facility] Comment on above: Order Comment: No: Do not add to previou s draw Performed By: #### 6 2586 ####[facility] Urea nitrogen 71 mg/dL High 7-25 [facility] Comment on above: Order Comment: No: Do not add to previou s draw Performed By: #### 6 2586 ####[facility] CBC COMPLETE BLOOD COUNTon 0 05-01-2017 Erythrocyte distribution width Auto Ratio (RBC) 14.8 % Normal 11.5-16.9 [facility] Comment on above: Order Comment: No: Do not add to previou s draw Performed By: #### 6 2586 ####[facility] Erythrocytes (RBC) 3.07 mill/mm3 Low 3.50-5.50 [facility] Comment on above: Order Comment: No: Do not add to previou s draw Performed By: #### 6 2586 ####[facility] Hematocrit (HCT) 26.9 % Low 36.0-48.0 [facility] Comment on above: Order Comment: No: Do not add to previou s draw Performed By: #### 6 2586 ####[facility] Hemoglobin mass conc (Bld) 8.8 g/dL Low 12.0-15.0 [facility] Comment on above: Order Comment: No: Do not add to previou s draw Performed By: #### 6 2586 ####[facility] MCH 28.8 pg Normal 24.0-32.0 [facility] Comment on above: Order Comment: No: Do not add to previou s draw Performed By: #### 6 2586 ####[facility] MCHC mass conc (RBC) 32.8 g/dL Normal 32.0-36.0 [facility] Comment on above: Order Comment: No: Do not add to previou s draw Performed By: #### 6 2586 ####[facility] MCV 87.9 fL Normal 80.0-100.0 [facility] Comment on above: Order Comment: No: Do not add to previou s draw Performed By: #### 6 2586 ####[facility] PLAT CNT 237 Thou/mm3 Normal 100-400 [facility] Comment on above: Order Comment: No: Do not add to previou s draw Performed By: #### 6 2586 ####[facility] WBC (Leukocytes) 10.1 Thou/mm3 High 4.0-10.0 [facility] Comment on above: Order Comment: No: Do not add to previou s draw Performed By: #### 6 2586 ####[facility] CPKon 05-01-2017 Creatine kinase (CK) 182 U/L Normal 30-223 [facility] Comment on above: Performed By: #### [id number] ####[facility] MAGNESIUM BLOODon 05-01-2017 Magnesium 2.2 mg/dL Normal 1.9-2.7 The [facility] Comment on above: Performed By: #### [id number] ####[facility] POC GLUCOSE LABon 05-01-2017 Glucose mass conc 308 mg/dL High 70-100 The [facility] Comment on above: Performed By: #### [id number] ####[place] [address] [facility] [place] [address], [facility] Glucose mass conc 285 mg/dL High 70-100 The [facility] Comment on above: Performed By: #### [id number] ####[place] [address] [facility].[address] Glucose mass conc 223 mg/dL High 70-100 The [facility] Comment on above: Performed By: #### [address] ####[place] [address] [facility].[address] URIC ACID BLOODon 05-01-2017 Urate 10.3 mg/dL High 2.3-6.6 The [facility] Comment on above: Performed By: #### [id number] ####[address] US RENAL ECHOGRAM COMPLETEon 05-01-2017 US RENAL ECHOGRAM COMPLETE [facility] [address]wb[address] [place], [place] [id number] Patient Name: ARTHUR YEN : 1945Sex: FAge: Race: WhiteMRN: [id number]. Location: [id number] Status: IVisit #: [id number] Date: 05/01/2017 9:20:00 AMCompleted Date: 05/01/2017 12:08 PMRequesting Provider: SHAHIDA LYN Attending Provider: STANFORD SINGH Report Copy To: Signs & Symptoms: Increased CreatinineHistory: Patient history not availableComments: OtherExam: US RENAL ECHOGRAM COMPLETEAccession #: [id number] US RENAL ECHOGRAM COMPLETE 05/01/2017 12:08 PM EST SIGNS AND SYMPTOMS: Increased Creatinine TECHNOLOGIST COMMENTS: increased creatinine QUESTION FOR THE RADIOLOGIST: Other PROTOCOL: COMPARISON: none FINDINGS: The right kidney measures 9.6 x 4.1 x 5.4 cm and the left kidney measures 8.7 x 4.1 x 3.9 cm. No cyst, mass or hydronephrosis was identified. IMPRESSION: Unremarkable renal ultrasound. Electronically signed by:Polo Chaves. Transcribed by: [email or web address], User Resident: Electronically Signed by: POLO CHAVES @ 05/01/2017 02:36 PM Normal The [facility] Comment on above: Order Comment: Other BASIC METABOLIC PANELon 04-07 Calcium 9.5 mg/dL Normal 8.6-10.3 The [facility] Comment on above: Order Comment: No: Do not add to previou s draw Performed By: #### 8 [id number] ####[facility] [address], [facility] Chloride 108 mmol/L High 98-107 The [facility] Comment on above: Order Comment: No: Do not add to previou s draw Performed By: #### 8 [id number] ####[facility] [place] [address], [facility] CO2 25 mmol/L Normal 21-31 [facility] Comment on above: Order Comment: No: Do not add to previou s draw Performed By: #### 8 [id number] ####[facility] [place] [address], [facility] Creatinine 2.41 mg/dL High 0.60-1.20 [facility] Comment on above: Order Comment: No: Do not add to previou s draw Performed By: #### 8 [id number] ####[facility] [place] [address], [facility] eGFR (black) 24 ml/min/1.73sq m Abnormal >60 [facility] Comment on above: Order Comment: No: Do not add to previou s draw Result Comment: Calc ulation may not be valid for patients over 70 years Performed By: #### 8 [id number] ####[facility] [place] [address], [facility] eGFR (non-black) 20 ml/min/1.73sq m Abnormal >60 [facility] Comment on above: Order Comment: No: Do not add to previou s draw Result Comment: Calc ulation may not be valid for patients over 70 years Performed By: #### 8 [id number] ####[facility] [place] [address], [facility] Glucose mass conc 162 mg/dL High 70-100 [facility] Comment on above: Order Comment: No: Do not add to previou s draw Performed By: #### 8 [id number] ####[facility] [place] [address], [place] Potassium molar conc 3.9 mmol/L Normal 3.5-5.1 [facility] Comment on above: Order Comment: No: Do not add to previou s draw Performed By: #### 8 [id number] ####[facility] [place] [address], [place] Sodium 139 mmol/L Normal 136-145 [facility] Comment on above: Order Comment: No: Do not add to previou s draw Performed By: #### 8 [id number] ####[facility] [place] [address], [place] Urea nitrogen 64 mg/dL High 7-25 [facility] Comment on above: Order Comment: No: Do not add to previou s draw Performed By: #### 8 [id number] ####[facility] CBC COMPLETE BLOOD COUNTon 0 04-30-2017 Erythrocyte distribution width Auto Ratio (RBC) 14.0 % Normal 11.5-16.9 [facility] Comment on above: Order Comment: No: Do not add to previou s draw Performed By: #### 8 [id number] ####[facility] Erythrocytes (RBC) 3.64 mill/mm3 Normal 3.50-5.50 [facility] Comment on above: Order Comment: No: Do not add to previou s draw Performed By: #### 8 [id number] ####[facility] Hematocrit (HCT) 32.0 % Low 36.0-48.0 [facility] Comment on above: Order Comment: No: Do not add to previou s draw Performed By: #### 8 [id number] ####[facility] Hemoglobin mass conc (Bld) 10.5 g/dL Low 12.0-15.0 [facility] Comment on above: Order Comment: No: Do not add to previou s draw Performed By: #### 8 [id number] ####[facility] [place] [address], [facility] MCH 29.0 pg Normal 24.0-32.0 [facility] Comment on above: Order Comment: No: Do not add to previou s draw Performed By: #### 8 [id number] ####[facility] [place] [address], [facility] MCHC mass conc (RBC) 33.0 g/dL Normal 32.0-36.0 [facility] Comment on above: Order Comment: No: Do not add to previou s draw Performed By: #### 8 [id number] ####[facility] MCV 87.9 fL Normal 80.0-100.0 [facility] Comment on above: Order Comment: No: Do not add to previou s draw Performed By: #### 8 [id number] ####[facility] PLAT CNT 312 Thou/mm3 Normal 100-400 [facility] Comment on above: Order Comment: No: Do not add to previou s draw Performed By: #### 8 [id number] ####[facility] WBC (Leukocytes) 16.1 Thou/mm3 High 4.0-10.0 [facility] Comment on above: Order Comment: No: Do not add to previou s draw Performed By: #### 8 [id number] ####[facility] [facility].[address] Operative Reporton 8 Operative Report MR#: [id number] [facility] Pt. Name: Arthur Yen Room #: 6AB [id number] Discharge Date: Birthdate: 1945 OPERATIVE REPORTDATE OF SURGERY: 04/29/2017SURGEON: DAVINA RichISTANT: Marilyn Almodovar M.D.PREOPERATIVE DIAGNOSIS: Left great toe diabetic infection and gangrene.POSTOPERATIVE DIAGNOSIS: Left great toe diabetic infection and gangrene.OPERATIVE PROCEDURE DONE:1. Left great toe transmetatarsal amputation.2. Irrigation and debridement of a left foot infection down to and including bone.3. Application of an incisional wound VAC.ANESTHESIA: General anesthesia.COMPLICATIONS: None.ESTIMATED BLOOD LOSS: 50 mL.SPECIMENS: Amputated gangrenous left great toe. Sent to pathology.CONDITION: Stable to PACU.INDICATIONS FOR THE PROCEDURE: The patient is a 71 years old pleasant ladywith a history of type 2 diabetes. About a month ago, she sustained atrivial injury to her great toe at home. She started having excessiveswelling and redness and she was followed up by her art gilder. About 2weeks ago, she had a superficial debridement for removal of a callosity ofthe toe by her art gilder, after which she started developing a redness ofthe foot as well as swelling and blackish discoloration involving her toeall the way down to the metacarpophalangeal joint. She was referred to us.She was admitted to the floor. We started her on antibiotics for about 5days until her cellulitis of the foot got controlled and/or the rednessreceded all the way. Recommendations were given for great toe amputation.I explained to the patient and her family that at this point, we arelooking into amputation through the metacarpophalangeal joint if notthrough the metatarsal depending on the viable healthy bleeding skin thatshe has. We explained to her that functionally the transmetatarsalamputation is not the greatest and she will have to wear certain shoe wearand orthotics and shoes later on. We warned her that if she develops anypressure points, we may need to proceed to a transmetatarsal amputation ofthe whole foot. We discussed that at the time being, we are going to dothe minimal amputation as we think doing a transmetatarsal amputation nowis very aggressive. The patient and her family were in complete agreeancewith the plan. All the risks and benefits of the procedure including riskof anesthesia, risk of persistence of infection, and nonhealing of theincision, as well as the need for more surgeries were all discussed. Riskof bleeding and/or a gangrene in the lesser toes was also discussed. Thepatient understood the recommendation and the possible risks of the surgeryand she elected to proceed with surgery. An informed consent wasobtained.OPERATIVE DETAILS: The patient was identified in the preoperative holdingarea. Her left lower extremity was signed by indelible marker. Ipersonally identified the patient, the site of surgery, as well as theprocedure to be done. All questions were answered and consents weresigned. The patient was then taken back to the OR, where she receivedgeneral anesthesia. She was placed supine on the operating table. All thebony prominences were padded. A nonsterile tourniquet was applied to theleft lower extremity. The patient was prepped and draped in the standardsterile fashion. A time-out was called according to the WHO protocol and Iwas present in the room during the time-out. I identified the patient, thesite of surgery, as well as the procedure to be done. All the necessaryequipment were present in the room. All possible allergies were discussedand preoperative antibiotics were given before skin incision. We startedby drawing a racquet-shaped incision around the big toe going intohealthy-looking skin. Using a knife, the incision was taken deeper throughthe dermis all around. The dissection continued deeper using a knife allthe way down to the extensor tendons of the toe. The tendons were cut andthe left 1st MP joint was flexed all the way exposing and stretching thejoint capsule. Using a knife, the joint capsule was opened and thearticular surface of the metacarpophalangeal joint was exposed.At this point, we realized that we have to do a transmetatarsal osteotomyas there was no enough skin to cover the head of the 1st metatarsal and weare going to put the flaps on the tension, which is something we want toavoid for proper healing. At this point, all the extensor tendons were cutas well as the plantar aspect of the joint capsule. All the flexor tendonswere also cut and the big toe was . This was followed byacquiring hemostasis using touch with the Bovie. All the bleeding vesselsand neurovascular bundles were cauterized. Care was taken not to get theneurovascular bundle proximal to the bifurcations as not to affect thecirculation of the other toes. At this point, an x-ray was brought in andwe determined the level at which we want to do our osteotomy, which isabout 2.5 cm proximal to the head of the 1st metatarsal. The bone wasdissected using a Grsos elevator and the line of the osteotomy was drawnusing a Bovie. Apolinar retractors were applied underneath the metatarsalto protect soft tissue and then an oscillating saw was used to do the cutin the metatarsal. The metatarsal cut was checked by x-rays. At thispoint, we continued thorough irrigation and debridement of all theunhealthy-looking soft tissue. The tips of the flexor and extensor tendonslooked very unhealthy and brownish and were debrided and cut and allowed toretract. The Fibular and tibial sesamoid bones were carefully dissectedand removed so as not to cause any pressure points in the sole of the foot.Good hemostasis was applied. the edges of the osteotomy site was roundedoff using the saw to prevent sharp edges. Irrigation withBetadine-impregnated irrigation fluid was done and 3 L of irrigation fluidwas used. The edges of the osteotomy were rounded by a rongeur and by thesaw so as not to close any pressure ulcers or irritate the overlying skin.At this point, the skin was very meticulously closed using a 2-0 Novafilnon-absorb monofilament sutures. At the end of the procedure, we decidedto apply an incisional wound VAC. The foot was cleaned and driedthoroughly. A piece of Adaptic was applied to the skin, over which theblack foam was applied. We got a very good seal around the wound VAC andwound VAC machine was connected to 125 mmHg continuous. At the end of theprocedure, we had good capillary refill in all the lesser toes and at thetime of closure, we had good bleeding edges of the skin at the site ofamputation. We had very good closure and grafting skin edges with notension at all. The leg was then wrapped with an Donato wrap. Drapes weretaken down. The patient recovered from anesthesia and was transferred toPACU in a stable condition.I was present during the entire procedure .PLAN: The patient will betransferred back to the floor. She will continue on antibiotics perInfectious Disease recommendation. The wound VAC will remain for 2 days.We are planning to take down the wound VAC in 2 days and discharge thepatient home based on how her wound looks.The patient will be nonweightbearing for 3 weeks and will be discharged onDVT prophylaxis. She will follow up in clinic in 2 weeks.Electronically Signed by:Felipe Nino MD 05/04/2017 12:57 P Felipe Nino MDDate Dict: 04/29/2017/12:56 P/Felipe Nino, MDDate Trans: 04/29/2017 11:30 P/[id number] Normal [facility] POC GLUCOSE LABon 04-30-2017 Glucose mass conc 319 mg/dL High 70-100 [facility] Comment on above: Performed By: #### [id number] ####[facility] [place] [address], [facility] Glucose mass conc 226 mg/dL High 70-100 [facility] Comment on above: Performed By: #### [id number] ####[facility] [place] [address], [facility] Glucose mass conc 316 mg/dL High 70-100 [facility] Comment on above: Performed By: #### [id number] ####[facility] [place] [address], [facility] Glucose mass conc 215 mg/dL High 70-100 [facility] Comment on above: Performed By: #### [id number] ####[facility] [facility] [place] [address], [facility] BASIC METABOLIC PANELon 04-07 Calcium 9.8 mg/dL Normal 8.6-10.3 [facility] Comment on above: Order Comment: No: Do not add to previou s draw Performed By: #### 0 0071 ####[facility] [place] [address], [facility] Chloride 105 mmol/L Normal 98-107 [facility] Comment on above: Order Comment: No: Do not add to previou s draw Performed By: #### 0 0071 ####[facility] [place] [address], [facility] CO2 27 mmol/L Normal 21-31 [facility] Comment on above: Order Comment: No: Do not add to previou s draw Performed By: #### 0 0071 ####[facility] [place] [address], [facility] Creatinine 2.11 mg/dL High 0.60-1.20 [facility] Comment on above: Order Comment: No: Do not add to previou s draw Performed By: #### 0 0071 ####[facility] [place] [address], [facility] eGFR (black) 28 ml/min/1.73sq m Abnormal >60 [facility] Comment on above: Order Comment: No: Do not add to previou s draw Result Comment: Calc ulation may not be valid for patients over 70 years Performed By: #### 0 0071 ####[facility] [place] [address], [facility] eGFR (non-black) 23 ml/min/1.73sq m Abnormal >60 [facility] Comment on above: Order Comment: No: Do not add to previou s draw Result Comment: Calc ulation may not be valid for patients over 70 years Performed By: #### 0 0071 ####[facility] [address], [facility] Glucose mass conc 127 mg/dL High 70-100 [facility] Comment on above: Order Comment: No: Do not add to previou s draw Performed By: #### 0 0071 ####[facility] [place] [address], [facility] Potassium molar conc 4.3 mmol/L Normal 3.5-5.1 [facility] Comment on above: Order Comment: No: Do not add to previou s draw Performed By: #### 0 0071 ####[facility] [place] [address], [facility] Sodium 139 mmol/L Normal 136-145 [facility] Comment on above: Order Comment: No: Do not add to previou s draw Performed By: #### 0 0071 ####[facility] Urea nitrogen 56 mg/dL High 7-25 [facility] Comment on above: Order Comment: No: Do not add to previou s draw Performed By: #### 0 0071 ####[facility] CBC COMPLETE BLOOD COUNTon 0 - Erythrocyte distribution width Auto Ratio (RBC) 13.8 % Normal 11.5-16.9 [facility] Comment on above: Order Comment: No: Do not add to previou s draw Performed By: #### 0 0071 ####[facility] Erythrocytes (RBC) 3.53 mill/mm3 Normal 3.50-5.50 [facility] Comment on above: Order Comment: No: Do not add to previou s draw Performed By: #### 0 0071 ####[facility] Hematocrit (HCT) 31.0 % Low 36.0-48.0 [facility] Comment on above: Order Comment: No: Do not add to previou s draw Performed By: #### 0 0071 ####[facility] Hemoglobin mass conc (Bld) 10.3 g/dL Low 12.0-15.0 [facility] Comment on above: Order Comment: No: Do not add to previou s draw Performed By: #### 0 0071 ####[facility] MCH 29.2 pg Normal 24.0-32.0 [facility] Comment on above: Order Comment: No: Do not add to previou s draw Performed By: #### 0 0071 ####[address] MCHC mass conc (RBC) 33.2 g/dL Normal 32.0-36.0 [facility] Comment on above: Order Comment: No: Do not add to previou s draw Performed By: #### 0 0071 ####[address] MCV 87.8 fL Normal 80.0-100.0 [facility] Comment on above: Order Comment: No: Do not add to previou s draw Performed By: #### 0 0071 ####[address] PLAT CNT 311 Thou/mm3 Normal 100-400 [facility] Comment on above: Order Comment: No: Do not add to previou s draw Performed By: #### 0 0071 ####[address] WBC (Leukocytes) 15.1 Thou/mm3 High 4.0-10.0 [facility] Comment on above: Order Comment: No: Do not add to previou s draw Performed By: #### 0 0071 ####[address] CPKon 04-29-2017 Creatine kinase (CK) 93 U/L Normal 30-223 [facility] Comment on above: Performed By: #### [id number] ####[address] FOOT LEFT 2 VWSon 04-29-2017 FOOT LEFT 2 VWS [facility] [address] [place] [id number] Patient Name: ARTHUR YEN : 1945Sex: FAge: Race: WhiteMRN: [id number]. Location: [id number] Status: IVisit #: [id number] Date: 04/29/2017 10:45:00 AMCompleted Date: 04/29/2017 12:36 PMRequesting Provider: FELIPE NINO Attending Provider: FELIPE NINO Report Copy To: Signs & Symptoms: intra-op left great toe amputationHistory: intra-op left great toe amputationComments: Exam: FOOT LEFT 2 VWSAccession #: [id number] FOOT LEFT 2 VWS 04/29/2017 12:36 PM EST SIGNS AND SYMPTOMS: intra-op left great toe amputation TECHNOLOGIST COMMENTS: intra-op left toe amputation, 5 seconds fluoro time, OR 6, Dr. Nino QUESTION FOR THE RADIOLOGIST: PROTOCOL: AP(PA) and Lateral views were obtained. COMPARISON: Left foot x-ray from April 22, 2017 FINDINGS: 2 Limited frontal views of the left foot were obtained intraoperatively using the C-arm documenting fluoroscopic guidance during left big toe amputation. Total fluoroscopy time is 5 seconds. Images are referred to the clinical service for correlation. IMPRESSION: 1. Images are obtained for documentation purposes Electronically signed by:Cristal Pnoce. Transcribed by: [email or web address], User Resident: Electronically Signed by: CRISTAL PONCE @ 04/29/2017 03:00 PM Normal [facility] HEMOGLOBIN A1Con 04-29-2017 Glucose mass conc 148 mg/dL High 70-126 [facility] Comment on above: Order Comment: No: Do not add to previou s draw Performed By: #### 8 [id number] ####[facility] [place] [address], [facility] Hemoglobin A1c/Hemoglobin.t otal mass fraction (Bld) 6.8 % High 4.0-6.0 [facility] Comment on above: Order Comment: No: Do not add to previou s draw Performed By: #### 8 [id number] ####[facility] [place] [address], [facility] POC GLUCOSE LABon 04-29-2017 Glucose mass conc 345 mg/dL High 70-100 [facility] Comment on above: Performed By: #### [id number] ####[facility] [place] [address], [facility] Glucose mass conc 218 mg/dL High 70-100 [facility] Comment on above: Performed By: #### [id number] ####[facility] [place] [address], [facility] Glucose mass conc 174 mg/dL High 70-100 [facility] Comment on above: Performed By: #### [id number] ####[facility] [place] [address], [facility] Glucose mass conc 133 mg/dL High 70-100 [facility] Comment on above: Performed By: #### 10472 ####[facility] [place] [address], [place] Glucose mass conc 121 mg/dL High 70-100 [facility] Comment on above: Performed By: #### [id number] ####[facility] [place] [address], [facility] POC GLUCOSE LABon 04-28-2017 Glucose mass conc 198 mg/dL High 70-100 [facility] Comment on above: Performed By: #### [id number] ####[facility] [place] [address], [facility] Glucose mass conc 203 mg/dL High 70-100 [facility] Comment on above: Performed By: #### [id number] ####[facility] [facility] [place] [address], [facility] Glucose mass conc 214 mg/dL High 70-100 [facility] Comment on above: Performed By: #### [id number] ####[facility] [facility] [place] [address], [facility] Glucose mass conc 110 mg/dL High 70-100 [facility] Comment on above: Performed By: #### [id number] ####[address] [place] [address], [facility] POC GLUCOSE LABon 04-27-2017 Glucose mass conc 314 mg/dL High 70-100 [facility] Comment on above: Performed By: #### [id number] ####[address] [place] [address], [facility] Glucose mass conc 214 mg/dL High 70-100 [facility] Comment on above: Performed By: #### [id number] ####[address] [place] [address], [facility] Glucose mass conc 201 mg/dL High 70-100 [facility] Comment on above: Performed By: #### [address]129, [address] ####[place] [address], [facility] Glucose mass conc 98 mg/dL Normal 70-100 [facility] Comment on above: Performed By: #### 91566, [address] ####[place] [address], [facility] BASIC METABOLIC PANELon 04-07 Calcium 9.4 mg/dL Normal 8.6-10.3 [facility] Comment on above: Order Comment: No: Do not add to previou s draw Performed By: #### 5 610, 84605 ####[facility] [place] [address], [facility] Chloride 103 mmol/L Normal 98-107 [facility] Comment on above: Order Comment: No: Do not add to previou s draw Performed By: #### 5 610, [id number] ####[facility], [place] [address], [place] CO2 27 mmol/L Normal 21-31 [facility] Comment on above: Order Comment: No: Do not add to previou s draw Performed By: #### 5 610, 61439 ####[facility] [place] [address], [facility] Creatinine 1.96 mg/dL High 0.60-1.20 [facility] Comment on above: Order Comment: No: Do not add to previou s draw Performed By: #### 5 610, 78840 ####[facility] [place] [address], [facility] eGFR (black) 30 ml/min/1.73sq m Abnormal >60 [facility] Comment on above: Order Comment: No: Do not add to previou s draw Result Comment: Calc ulation may not be valid for patients over 70 years Performed By: #### 5 610, 32919 ####[facility] [place] [address], [facility] eGFR (non-black) 25 ml/min/1.73sq m Abnormal >60 [facility] Comment on above: Order Comment: No: Do not add to previou s draw Result Comment: Calc ulation may not be valid for patients over 70 years Performed By: #### 5 610, 25108 ####[facility] [id number], [facility] Glucose mass conc 153 mg/dL High 70-100 [facility] Comment on above: Order Comment: No: Do not add to previou s draw Performed By: #### 5 610, 54948 ####[facility] [place] [address], [facility] Potassium molar conc 4.0 mmol/L Normal 3.5-5.1 [facility] Comment on above: Order Comment: No: Do not add to previou s draw Performed By: #### 5 610, 20261 ####[facility] [place] [address], [facility] Sodium 140 mmol/L Normal 136-145 [facility] Comment on above: Order Comment: No: Do not add to previou s draw Performed By: #### 5 610, 71077 ####[facility] [place] [address], [facility] Urea nitrogen 53 mg/dL High 7-25 [facility] Comment on above: Order Comment: No: Do not add to previou s draw Performed By: #### 5 610, 12260 ####[facility] [place] [address], [facility] CBC COMPLETE BLOOD COUNTon 0 - Erythrocyte distribution width Auto Ratio (RBC) 13.5 % Normal 11.5-16.9 [facility] Comment on above: Order Comment: No: Do not add to previou s draw Performed By: #### 5 610, 28809 ####[facility] [place] [address], [place] Erythrocytes (RBC) 3.43 mill/mm3 Low 3.50-5.50 [facility] Comment on above: Order Comment: No: Do not add to previou s draw Performed By: #### 5 610, 42784 ####[facility] [place] [address], [place] Hematocrit (HCT) 30.2 % Low 36.0-48.0 [facility] Comment on above: Order Comment: No: Do not add to previou s draw Performed By: #### 5 6100, 66508 ####[facility] [place] [address], [facility] Hemoglobin mass conc (Bld) 9.9 g/dL Low 12.0-15.0 [facility] Comment on above: Order Comment: No: Do not add to previou s draw Performed By: #### 5 6100, 92879 ####[facility] MCH 28.9 pg Normal 24.0-32.0 [facility] Comment on above: Order Comment: No: Do not add to previou s draw Performed By: #### 5 6100, 30292 ####[facility] MCHC mass conc (RBC) 32.8 g/dL Normal 32.0-36.0 [facility] Comment on above: Order Comment: No: Do not add to previou s draw Performed By: #### 5 6100, 59727 ####[facility] MCV 88.0 fL Normal 80.0-100.0 [facility] Comment on above: Order Comment: No: Do not add to previou s draw Performed By: #### 5 6100, 56435 ####[facility] [place] [address], [facility] PLAT CNT 353 Thou/mm3 Normal 100-400 [facility] Comment on above: Order Comment: No: Do not add to previou s draw Performed By: #### 5 610, 34925 ####[facility] [place] [address], [facility] WBC (Leukocytes) 7.1 Thou/mm3 Normal 4.0-10.0 [facility] Comment on above: Order Comment: No: Do not add to previou s draw Performed By: #### 5 6101, 88618 ####[address] [place] [address], [facility] POC GLUCOSE LABon 04-26-2017 Glucose mass conc 292 mg/dL High 70-100 [facility] Comment on above: Performed By: #### 50047, 14759 ####[facility] [address] [place] [address], [facility] Glucose mass conc 276 mg/dL High 70-100 [facility] Comment on above: Performed By: #### 94731, 94238 ####[address] [place] [address], [facility] Glucose mass conc 179 mg/dL High 70-100 [facility] Comment on above: Performed By: #### 36674, 02927 ####[address] [place] [address], [facility] Glucose mass conc 156 mg/dL High 70-100 [facility] Comment on above: Performed By: #### 06728, 81845 ####[place] [address], [facility] BASIC METABOLIC PANELon 04-07 Calcium 9.4 mg/dL Normal 8.6-10.3 [facility] Comment on above: Order Comment: No: Do not add to previou s draw Performed By: #### 5 6101, 42845 ####[address] [place] [address], [facility] Chloride 105 mmol/L Normal 98-107 [facility] Comment on above: Order Comment: No: Do not add to previou s draw Performed By: #### 5 6101, 64996 ####[address] [place] [address], [facility] CO2 30 mmol/L Normal 21-31 [facility] Comment on above: Order Comment: No: Do not add to previou s draw Performed By: #### 5 610, 40920 ####[facility] Creatinine 1.81 mg/dL High 0.60-1.20 [facility] Comment on above: Order Comment: No: Do not add to previou s draw Performed By: #### 5 610, 02128 ####[facility] eGFR (black) 33 ml/min/1.73sq m Abnormal >60 [facility] Comment on above: Order Comment: No: Do not add to previou s draw Result Comment: Calc ulation may not be valid for patients over 70 years Performed By: #### 5 610, 18109 ####[facility] eGFR (non-black) 27 ml/min/1.73sq m Abnormal >60 [facility] Comment on above: Order Comment: No: Do not add to previou s draw Result Comment: Calc ulation may not be valid for patients over 70 years Performed By: #### 5 610, 62225 ####[facility] Glucose mass conc 80 mg/dL Normal 70-100 [facility] Comment on above: Order Comment: No: Do not add to previou s draw Performed By: #### 5 610, 25113 ####[facility] [place] [address], [facility] Potassium molar conc 4.1 mmol/L Normal 3.5-5.1 [facility] Comment on above: Order Comment: No: Do not add to previou s draw Performed By: #### 5 610, 37815 ####[facility] [place] [address], [facility] Sodium 143 mmol/L Normal 136-145 [facility] Comment on above: Order Comment: No: Do not add to previou s draw Performed By: #### 5 610, 20901 ####[facility] [place] [address], [facility] Urea nitrogen 53 mg/dL High 7-25 [facility] Comment on above: Order Comment: No: Do not add to previou s draw Performed By: #### 5 6100, 59888 ####[facility] CBC COMPLETE BLOOD COUNTon 0 - Erythrocyte distribution width Auto Ratio (RBC) 13.7 % Normal 11.5-16.9 [facility] Comment on above: Order Comment: No: Do not add to previou s draw Performed By: #### 5 6100, 71004 ####[facility] Erythrocytes (RBC) 3.31 mill/mm3 Low 3.50-5.50 [facility] Comment on above: Order Comment: No: Do not add to previou s draw Performed By: #### 5 6100, 20039 ####[facility] Hematocrit (HCT) 29.0 % Low 36.0-48.0 [facility] Comment on above: Order Comment: No: Do not add to previou s draw Performed By: #### 5 610, 34359 ####[facility] [place] [address], [facility] Hemoglobin mass conc (Bld) 9.6 g/dL Low 12.0-15.0 [facility] Comment on above: Order Comment: No: Do not add to previou s draw Performed By: #### 5 610, 75285 ####[facility] MCH 29.1 pg Normal 24.0-32.0 [facility] Comment on above: Order Comment: No: Do not add to previou s draw Performed By: #### 5 610, 27785 ####[facility] [place] [address], [facility] MCHC mass conc (RBC) 33.2 g/dL Normal 32.0-36.0 [facility] Comment on above: Order Comment: No: Do not add to previou s draw Performed By: #### 5 610, 07036 ####[place] [id number] [facility].[address] MCV 87.6 fL Normal 80.0-100.0 [facility] Comment on above: Order Comment: No: Do not add to previou s draw Performed By: #### 5 610, 78434 ####[facility] PLAT CNT 350 Thou/mm3 Normal 100-400 [facility] Comment on above: Order Comment: No: Do not add to previou s draw Performed By: #### 5 610, 30548 ####[facility] WBC (Leukocytes) 6.5 Thou/mm3 Normal 4.0-10.0 [facility] Comment on above: Order Comment: No: Do not add to previou s draw Performed By: #### 5 610, 79732 ####[facility] POC GLUCOSE LABon 04-25-2017 Glucose mass conc 103 mg/dL High 70-100 [facility] Comment on above: Performed By: #### 50755, 52532 ####[facility] [place] [address], [facility] Glucose mass conc 64 mg/dL Low 70-100 [facility] Comment on above: Performed By: #### 50830, 65484 ####[facility] [place] [id number] [facility] [place] [address], [facility] Glucose mass conc 211 mg/dL High 70-100 [facility] Comment on above: Performed By: #### 90473, 26794 ####[facility] [address] [place] [address], [facility] Glucose mass conc 89 mg/dL Normal 70-100 [facility] Comment on above: Performed By: #### 88523, 25476 ####[facility] [address] [place] [address], [facility] ALBUMIN BLOODon 04-24-2017 Albumin 3.5 g/dL Normal 3.5-5.7 [facility] Comment on above: Order Comment: No: Do not add to previou s draw Performed By: #### 5 6101, 14736 ####[address] [place] [address], [facility] POC GLUCOSE LABon 04-24-2017 Glucose mass conc 267 mg/dL High 70-100 [facility] Comment on above: Performed By: #### 04857, 64653 ####[facility] [address] [place] [address], [facility] Glucose mass conc 140 mg/dL High 70-100 [facility] Comment on above: Performed By: #### 26855, 68569 ####[facility] [address] [place] [address], [place] Glucose mass conc 130 mg/dL High 70-100 [facility] Comment on above: Performed By: #### 98969, 51777 ####[facility] [address] [place] [address], [place] Glucose mass conc 122 mg/dL High 70-100 [facility] Comment on above: Performed By: #### 54408, 99003 ####[facility] [place] [address], [facility] TRANSFERRINon 04-24-2017 Transferrin 177 mg/dL Low 203-362 [facility] Comment on above: Order Comment: No: Do not add to previou s draw Performed By: #### 5 6101, 34709 ####[facility] [place] [address], [facility] POC GLUCOSE LABon 04-23-2017 Glucose mass conc 212 mg/dL High 70-100 [facility] Comment on above: Performed By: #### 59831 ####[facility] [address], [facility] Glucose mass conc 226 mg/dL High 70-100 [facility] Comment on above: Performed By: #### 03679 ####[facility] [address], [facility] Glucose mass conc 202 mg/dL High 70-100 [facility] Comment on above: Performed By: #### 06263 ####[facility] [place] [address], [facility] Glucose mass conc 200 mg/dL High 70-100 [facility] Comment on above: Performed By: #### 79451 ####[facility] [place] [address], [facility] APTTon 04-22-2017 aPTT 36.5 s High 25.0-35.0 [facility] Comment on above: Order Comment: No: Do not add to previou s draw Result Comment: ALL RESULTS MUST BE INTERPRETED WITH RESPECT TO BLOOD DRAWING ARTIFACTOR DILUTION ERROR OF ANTICOAGULANT AT THE TIME OF SAMPLING.THE APTT SHOULD NOT BE USED TO MONITOR UNFRACTIONATED HEPARIN THERAPY, THIS LABORATORY NO LONGER HAS AN ESTABLISHED THERAPEUTIC RANGE BASEDON THE APTT. IT IS RECOMMENDED THAT THE [facility] - HEPARIN ASSAY (ANTI-XAACTIVITY) BE USED FOR THIS PURPOSE. Performed By: #### 5 6101, 44907 ####[facility] [facility].[address] BASIC METABOLIC PANELon 04-06 Calcium 9.6 mg/dL Normal 8.6-10.3 [facility] Comment on above: Order Comment: No: Do not add to previou s draw Performed By: #### 0 0071 ####[facility] [facility].[address] Chloride 102 mmol/L Normal 98-107 [facility] Comment on above: Order Comment: No: Do not add to previou s draw Performed By: #### 0 0071 ####[place] [address] [facility].[address] CO2 27 mmol/L Normal 21-31 [facility] Comment on above: Order Comment: No: Do not add to previou s draw Performed By: #### 0 0071 ####[place] [address] [facility].[address] Creatinine 1.90 mg/dL High 0.60-1.20 [facility] Comment on above: Order Comment: No: Do not add to previou s draw Performed By: #### 0 0071 ####[facility] [facility].[address] eGFR (black) 31 ml/min/1.73sq m Abnormal >60 [facility] Comment on above: Order Comment: No: Do not add to previou s draw Result Comment: Calc ulation may not be valid for patients over 70 years Performed By: #### 0 0071 ####[facility] eGFR (non-black) 26 ml/min/1.73sq m Abnormal >60 [facility] Comment on above: Order Comment: No: Do not add to previou s draw Result Comment: Calc ulation may not be valid for patients over 70 years Performed By: #### 0 0071 ####[facility] [place] [address], [facility] Glucose mass conc 122 mg/dL High 70-100 [facility] Comment on above: Order Comment: No: Do not add to previou s draw Performed By: #### 0 0071 ####[facility] [place] [address], [facility] Potassium molar conc 3.9 mmol/L Normal 3.5-5.1 [facility] Comment on above: Order Comment: No: Do not add to previou s draw Performed By: #### 0 0071 ####[facility] [place] [address], [facility] Sodium 137 mmol/L Normal 136-145 [facility] Comment on above: Order Comment: No: Do not add to previou s draw Performed By: #### 0 0071 ####[facility] [place] [address], [facility] Urea nitrogen 64 mg/dL High 7-25 [facility] Comment on above: Order Comment: No: Do not add to previou s draw Performed By: #### 0 0071 ####[facility] CBC COMPLETE BLOOD COUNTon 0 - Erythrocyte distribution width Auto Ratio (RBC) 13.3 % Normal 11.5-16.9 [facility] Comment on above: Order Comment: No: Do not add to previou s draw Performed By: #### 5 0608 ####[facility] [place] [address], [facility] Erythrocytes (RBC) 3.57 mill/mm3 Normal 3.50-5.50 [facility] Comment on above: Order Comment: No: Do not add to previou s draw Performed By: #### 5 0608 ####[facility] Hematocrit (HCT) 31.1 % Low 36.0-48.0 [facility] Comment on above: Order Comment: No: Do not add to previou s draw Performed By: #### 5 0608 ####[facility] Hemoglobin mass conc (Bld) 10.4 g/dL Low 12.0-15.0 [facility] Comment on above: Order Comment: No: Do not add to previou s draw Performed By: #### 5 0608 ####[facility] MCH 29.3 pg Normal 24.0-32.0 [facility] Comment on above: Order Comment: No: Do not add to previou s draw Performed By: #### 5 0608 ####[facility] MCHC mass conc (RBC) 33.6 g/dL Normal 32.0-36.0 [facility] Comment on above: Order Comment: No: Do not add to previou s draw Performed By: #### 5 0608 ####[facility] MCV 87.1 fL Normal 80.0-100.0 [facility] Comment on above: Order Comment: No: Do not add to previou s draw Performed By: #### 5 0608 ####[facility] PLAT CNT 375 Thou/mm3 Normal 100-400 [facility] Comment on above: Order Comment: No: Do not add to previou s draw Performed By: #### 5 0608 ####[facility] WBC (Leukocytes) 7.7 Thou/mm3 Normal 4.0-10.0 [facility] Comment on above: Order Comment: No: Do not add to previou s draw Performed By: #### 5 0608 ####[facility] POC GLUCOSE LABon 04-22-2017 Glucose mass conc 128 mg/dL High 70-100 [facility] Comment on above: Performed By: #### 78039 ####[address] PROTHROMBIN TIMEon 8 INR Coag RelTime (PPP) 1.09 {INR} Normal 0.91-1.16 [facility] Comment on above: Order Comment: No: Do not add to previou s draw Result Comment: ACCC P RECOMMENDED INR FOR WARFARIN THERAPY CONDITION INRPROPHYLAXIS OF VENOUS THROMBOSIS 2-3(HIGH-RISK SURGERY)TREATMENT OF VENOUS THROMBOSIS 2-3TREATMENT OF PULMONARY EMBOLISM 2-3PREVENTION OF SYSTEMIC EMBOLISM: 2-3 ACUTE MYOCARDIAL INFARCTION TISSUE HEART VALVES VALVULAR HEART DISEASE ATRIAL FIBRILLATION RECURRENT SYSTEMIC EMBOLISMMECHANICAL HEART VALVE 2.5-3.5 FROM: ORAL ANTICOAGULANTS. MECHANISM OF ACTION, CLINICALEFFECTIVENESS, AND OPTIMAL THERAPEUTIC RANGE. [id number]. Performed By: #### 5 6101, 91719 ####[facility] [facility] [place] [id number] [place] [address] Prothrombin time (PT) Coag time (PPP) 14.2 s Normal 12.3-14.8 [facility] Comment on above: Order Comment: No: Do not add to previou s draw Result Comment: ALL RESULTS MUST BE INTERPRETED WITH RESPECT TO BLOOD DRAWING ARTIFACTOR DILUTION ERROR OF ANTICOAGULANT AT THE TIME OF SAMPLING. Performed By: #### 5 6101, 74489 ####[facility] [facility].[address] TYPE AND SCREENon 04-22-2017 ABO INTERPRETATION O Normal [facility] Comment on above: Performed By: #### 88750 ####[facility] [facility].[address] ANTIBODY SCREEN Negative Normal [facility] Comment on above: Performed By: #### 59036 ####[facility] [facility] [place] [address], [facility] RH INTERPRETATION Positive Normal [facility] Comment on above: Performed By: #### 52755 ####[facility] [facility].[address] Vital Signs Date Time Vital Sign Value Performing Clinician Facility 08-13-2022 14:45-0400 Body height 152.4 cm [facility] Other 08-13-2022 14:45-0400 Body mass index (BMI) [Ratio] 33.47 kg/m2 [facility] Other 08-13-2022 14:45-0400 Body weight 77.75 kg [facility] Other 08-13-2022 14:45-0400 Diastolic blood pressure 67 mm[Hg] Micaela Scally Other [facility] Other 08-13-2022 14:45-0400 Respiratory rate 18 /min Micaela Scally Other [facility] Other 08-13-2022 14:45-0400 SaO2% (BldA) [Mass fraction] 96 % Micaela Scally Other [facility] Other 08-13-2022 14:45-0400 Systolic blood pressure 110 mm[Hg] Micaela Scally Other [facility] Other 06-18-2022 14:00-0400 Body height 152.4 cm Micaela Scally Other [facility] Other 06-18-2022 14:00-0400 Body mass index (BMI) [Ratio] 33.24 kg/m2 Micaela Scally Other [facility] Other 06-18-2022 14:00-0400 Body weight 77.2 kg Micaela Scally Other [facility] Other 06-18-2022 14:00-0400 Diastolic blood pressure 58 mm[Hg] Micaela Scally Other [facility] Other 06-18-2022 14:00-0400 Respiratory rate 18 /min Micaela Scally Other [facility] Other 06-18-2022 14:00-0400 SaO2% (BldA) [Mass fraction] 97 % Micaela Scally Other [facility] Other 06-18-2022 14:00-0400 Systolic blood pressure 111 mm[Hg] Micaela Prince Other [facility] Other 05-21-2022 14:00-0500 Body height 152.4 cm Micaela Prince Other [facility] Other Encounters Encounter Date Encounter Type Care Provider Facility Start: 05-13-2023 End: 05-14-2023 ambulatory THERESA VALLES [facility] Start: 05-13-2023 External Result Encounter Theresa Valles MD Work Phone: [facility] Unsolicited Start: 05-13-2023 External Result Encounter Theresa Valles MD Work Phone: [facility] External [facility] Unsolicited Start: 05-13-2023 Orders Only Theresa butler MD Work Phone: INTERFACE-ONLY ATLAS Comment on above: Chronic kidney disea se, stage 4 (severe) ([facility]) Start: 05-07-2023 End: 05-07-2023 ambulatory THERESA VALLES Not Available Start: 05-07-2023 Bamboo flowsheet Theresa eller MD Work Phone: [facility] Start: 05-07-2023 Bamboo flowsheet Theresa eller MD Work Phone: [facility] Start: 05-04-2023 End: 05-05-2023 ambulatory EFRAIN TREVINO [facility] Start: 04-28-2023 End: 04-29-2023 ambulatory KARTHIK DONALD ACKERMAN [facility] Start: 04-27-2023 End: 04-28-2023 ambulatory EFRAIN TREVINO [facility] Start: 04-20-2023 End: 04-21-2023 ambulatory EFRAIN TREVINO [facility] Start: 04-13-2023 End: 04-14-2023 ambulatory EFRAIN Librado TREVINO [facility] Start: 04-08-2023 End: 04-09-2023 ambulatory [facility] Start: 04-07-2023 End: 04-08-2023 ambulatory [facility] Start: 03-31-2023 Telephone encounter Micaela [facility] Start: 03-31-2023 End: 04-01-2023 ambulatory [facility] Other Start: 03-23-2023 End: 03-24-2023 ambulatory [facility] Start: 02-20-2023 Orders Only Prince Trujillo MD Work Phone: Cardiology Comment on above: S/P MVR (mitral valv e replacement) (Primary Dx) Start: 11-05-2022 End: 11-05-2022 ambulatory Micaela Prince Other [facility] Other Start: 11-05-2022 Telephone encounter [facility] Start: 10-20-2022 End: 10-20-2022 ambulatory Micaela Prince Other [facility] Other Start: 10-20-2022 Telephone encounter [facility]icaela pat[facility] Start: 08-13-2022 (DM) Diabetes Micaela Tipton ds [facility] Start: 08-13-2022 End: 08-13-2022 ambulatory Theresa Valles [employer] [facility] [place] Other Start: 07-30-2022 Orders Only Prince Trujillo MD Work Phone: Cardiology Comment on above: Mixed hyperlipidemia (Primary Dx) Hx of mitral valve r eplacement (Primary Dx) Start: 06-20-2022 End: 06-20-2022 ambulatory Micaela Prince Other [facility] Other Start: 06-20-2022 Telephone encounter [facility] Start: 06-18-2022 (DM) Diabetes Micaela Tipton [facility] Start: 06-18-2022 End: 06-18-2022 ambulatory Micaela Prince Other [facility] Other Start: 05-21-2022 End: 05-21-2022 ambulatory Micaela Prince Other [facility] Other Start: 05-21-2022 Diabetic care education Micaela Dhill[facility] Start: 10-16-2021 End: 10-16-2021 Subsequent hospital visit by physician Xr Chest Main J1 Work Phone: Radiology Comment on above: 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] Start: 04-15-2021 End: 04-15-2021 ambulatory CHARLEY QUINTERO Facility:[facility] Start: 09-15-2020 End: 09-15-[address] THERESA VALLES Facility:[facility] Start: 09-08-2020 End: 09-08-[address] THERESA VALLES Facility: Start: 06-04-2017 End: 06-05-2017 Ambulatory FELIPE NINO Facility:[facility] Start: 04-22-2017 End: 05-01-2017 Evaluation and management of inpatient STANFORD SINGH Facility:[facility] Procedures Date Procedure Procedure Detail Performing Clinician Start: 05-13-2023 Albumin serum plasma/whole blood Theresa Valles MD Work Phone: Start: 05-13-2023 Complete blood count with white cell differential, automated Theresa Valles MD Work Phone: Start: 10-16-2021 Radiologic exam ches t 2 views Prince Trujillo MD Work Phone: Start: 04-29-2017 DETACHMENT AT LEFT F OOT, PARTIAL 1ST RAY, OPEN APPROACH FELIPE NINO Plan of Treatment Date Care Activity Detail Author Start: 06-24-2028 DTaP,Tdap and Td Vaccines (3 - Td or Tdap) DTaP,Tdap and Td Vaccines (3 - Td or Tdap) [facility] Start: 06-24-2028 Urine microalbumin profile [facility] Start: 06-17-2023 Glaucoma screening Diabetes: R etinopathy Screening [facility] Start: 05-13-2023 End: 05-13-2024 Comprehensive metabolic 2000 panel - Serum or Plasma Comprehensive metabolic panel Lab Routine Chronic kidney disease, stage 4 (severe) (CMS-HCC) Expected: 05/13/2023, Expires: 05/13/2024 [facility] Work Phone: Comment on above: Expected: 05/13/2023 , Expires: 05/13/2024 Start: 05-07-2023 End: 05-07-2023 Patient encounter procedure 05/07/2023 2:00 PM EST Office Visit [facility] [address] [place] [address] Theresa Valles MD [address] [place] [address] Type 2 diabetes mellitus with stage 4 chronic kidney disease, with long-term current use of insulin (CMS/HCC); Chronic kidney disease, stage 3b (N18.32); Acquired absence of left great toe (Z89.412); Systolic congestive heart failure, unspecified HF chronicity (CMS/HCC); Pulmonary hypertension, unspecified (I27.20); Atherosclerosis of aorta (I70.0); Type 2 diabetes mellitus with diabetic peripheral angiopathy without gangrene, with long-term current use of insulin (CMS/HCC); Chronic respiratory failure with hypoxia (J96.11); Chronic kidney disease, stage 4 (severe) (N18.4); Atrial flutter, unspecified type (CMS/HCC) [facility] Comment on above: Type 2 diabetes nata itus with stage 4 chronic kidney disease, with long-term current use of insulin (CMS/HCC); Chronic kidney disease, stage 3b (N18.32); Acquired absence of left great toe (Z89.412); Systolic congestive heart failure, unspecified HF chronicity (CMS/HCC); Pulmonary hypertension, unspecified (I27.20); Atherosclerosis of aorta (I70.0); Type 2 diabetes mellitus with diabetic peripheral angiopathy without gangrene, with long-term current use of insulin ([facility]); Chronic respiratory failure with hypoxia (J96.11); Chronic kidney disease, stage 4 (severe) (N18.4); Atrial flutter, unspecified type ([facility]/HCC) Start: 03-31-2023 Hemoglobin A1c/Hemoglobin.total in Blood HbA1C [facility] Start: 03-03-2023 Adult BMI Screening Adult BMI Screen ing [facility] Start: 02-20-2023 End: 05-22-2023 Basic metabolic 2000 panel - Serum or Plasma BASIC METABOLIC PNL Lab Routine S/P MVR (mitral valve replacement) Expected: 02/20/2023, Expires: 05/22/2023 [facility] Work Phone: Comment on above: Expected: 02/20/2023 , Expires: 05/22/2023 Start: 12-30-2022 Hemoglobin A1c measurement Diabetes: Hemoglobin A1C [facility] Start: 12-19-2022 End: 12-27-2022 Basic metabolic 2000 panel - Serum or Plasma BASIC METABOLIC PNL Lab Routine Hx of mitral valve replacement Expected: 12/19/2022, Expires: 12/27/2022 [facility] Work Phone: Comment on above: Expected: 12/19/2022 , Expires: 12/27/2022 Start: 12-05-2022 Covid-19 Vaccine ( season) Covid-19 Vaccine () [facility] Start: 12-05-2022 Influenza vaccination [facility] Start: 10-16-2022 BP CONTROLLED (<130/80) BP CONTROLLE D (<130/80) [facility] Start: 10-16-2022 HEMOGLOBIN/HEMATOCRIT HEMOGLOBIN/HEM ATOCRIT [facility] Start: 10-16-2022 Hepatitis B surface antibody level LDL CHOLESTEROL [facility] Start: 10-16-2022 SERUM CREATININE SERUM CREATININE Cl [facility] Start: 07-30-2022 End: 09-29-2022 CBC panel - Blood by Automated count CBC Lab Routine Mixed hyperlipidemia Expected: 07/30/2022, Expires: 09/29/2022 [facility] Work Phone: Comment on above: Expected: 07/30/2022 , Expires: 09/29/2022 Start: 07-30-2022 End: 09-29-2022 Lipid 1996 panel - Serum or Plasma LIPID PANEL BASIC Lab Routine Mixed hyperlipidemia Expected: 07/30/2022, Expires: 09/29/2022 [facility] Work Phone: Comment on above: Expected: 07/30/2022 , Expires: 09/29/2022 Start: 2022 Tobacco Screening Tobacco Screening [facility] Start: 04-06-2022 ADVANCE DIRECTIVE DISCUSSION ADVANCE DIRECTIVE DISCUSSION [facility] Start: 04-06-2022 DEPRESSION ASSESSMENT DEPRESSION ASS ESSMENT [facility] Start: 12-05-2021 Influenza vaccination INFLUENZA (#1) [facility] Start: 10-30-2021 Hemoglobin A1c/Hemoglobin.total in Blood HBA1C [facility] Start: 04-06-2021 ADVANCE DIRECTIVE DISCUSSION ADVANCE DIRECTIVE DISCUSSION [facility] Start: 02-01-2021 Medicare Annual Well ness (AWV) Medicare Annual Wellness (AWV) [facility] Start: 10-29-2020 COVID-19 VACCINE (3 - Booster for Moderna series) COVID-19 VACCINE (3 - Booster for Moderna series) [facility] Start: 07-27-2020 COVID-19 VACCINE (3 - Booster for Moderna series) COVID-19 VACCINE (3 - Booster for Moderna series) [facility] Start: 11-08-2012 Administration of varicella zoster vaccine Zoster (Shingles) Vaccine (2 of 3) [facility] Start: 11-08-2012 Shingrix Vaccine (2 of 3) Shingrix Vaccine (2 of 3) [facility] Start: 2009 BONE DENSITY BONE DENSITY [facility] Start: 2009 Bone Density Screening Bone Density Screening [facility] Start: 2009 Fall Risk Screening Fall Risk Screen ing [facility] Start: 2004 Hepatitis B Vaccine (1 of 3 - Risk 3-dose series) Hepatitis B Vaccine (1 of 3 - Risk 3-dose series) [facility] Start: 2004 RSV Vaccine (1 - 1-d ose 60+ series) RSV Vaccine (1 - 1-dose 60+ series) [facility] Start: 1994 SHINGRIX VACCINE (1 of 2) SHINGRIX VACCINE (1 of 2) [facility] Start: 1962 ANNUAL PCP TEAM INFORMATION CODER ART DISEASE VISIT ANNUAL PCP TEAM CHRONIC DISEASE VISIT [facility] Start: 1962 BP Controlled (<130/80) BP Controlle d (<130/80) [facility] Start: 1962 HEPATITIS C SCREENING HEPATITIS C SC REENING [facility] Start: 1956 Adult depression screening assessment DEPRESSION SCREENING [facility] Start: 1954 3 comp foot exam completed DIABETIC FOOT EXAM [facility] Start: 1954 Hepatitis C antibody , confirmatory test DILATED RETINAL EXAM [facility] Start: 1944 Medicare Annual Well ness (AWV) Medicare Annual Wellness (AWV) [facility] Start: 1944 Medicare Annual Well ness Visit Medicare Annual Wellness Visit [facility] End: 02-21-2024 ECG COMPLETE ECG COMPLETE ECG Routine S/P MVR (mitral valve replacement) 1 Occurrences starting 02/20/2023 until 02/21/2024 [facility] Work Phone: Comment on above: 1 Occurrences starti ng 02/20/2023 until 02/21/2024 [facility] Immunizations Immunization Date Immunization Notes Care Provider Isabela sanchez 03-14-2022 Influenza, High-dose Seasonal, Quadrivalent, Preservative Free Theresa Valles MD Work Phone: [facility] 03-14-2022 influenza virus vacc ine, unspecified formulation Theresa Valles MD Work Phone: [facility] 01-30-2021 Influenza, High-dose Seasonal, Quadrivalent, Preservative Free Theresa Valles MD Work Phone: [facility] 01-30-2021 influenza virus vacc ine, unspecified formulation Prince Trujillo MD Work Phone: [facility] 06-01-2020 COVID-19 vaccine, fu ll dose (MODERNA) Xr J1 Work Phone: [facility] Work Phone: 05-04-2020 COVID-19 vaccine, fu ll dose (MODERNA) Xr J1 Work Phone: [facility] Work Phone: 02-02-2020 influenza, high dose seasonal, preservative-free Xr J1 Work Phone: [facility] Work Phone: 02-02-2020 Influenza, High-dose Seasonal, Quadrivalent, Preservative Free Theresa Valles MD Work Phone: [facility] 01-25-2019 influenza, injectabl e, quadrivalent, preservative free Xr J1 Work Phone: [facility] 01-17-2019 pneumococcal polysaccharide vaccine, 23 valent Xr J1 Work Phone: [facility] Work Phone: 06-24-2018 tetanus toxoid, redu marleni diphtheria toxoid, and acellular pertussis vaccine, adsorbed Xr J1 Work Phone: [facility] 01-29-2018 influenza, injectabl e, quadrivalent, preservative free Xr J1 Work Phone: [facility] 10-29-2017 tetanus toxoid, redu marleni diphtheria toxoid, and acellular pertussis vaccine, adsorbed Xr J1 Work Phone: [facility] 02-03-2017 influenza, injectabl e, quadrivalent, preservative free Xr J1 Work Phone: [facility] 01-16-2016 influenza, high dose seasonal, preservative-free Xr J1 Work Phone: [facility] Work Phone: 01-16-2015 influenza, high dose seasonal, preservative-free Theresa Valles MD Work Phone: [facility] 01-18-2014 influenza, high dose seasonal, preservative-free Theresa Valles MD Work Phone: [facility] 12-17-2012 pneumococcal conjuga te vaccine, 13 valent Xr J1 Work Phone: [facility] Work Phone: 09-13-2012 zoster vaccine, live Theresa bermudez MD Work Phone: [facility] 09-13-2012 zoster vaccine, unspecified formulation Theresa Valles MD Work Phone: [facility] [place] 01-16-2010 influenza virus vacc ine, whole virus Xr J1 Work Phone: [facility] 01-10-2009 influenza virus vacc ine, whole virus Xr J1 Work Phone: [facility] 01-05-2008 pneumococcal polysaccharide vaccine, 23 valent Theresa Valles MD Work Phone: [facility] 01-19-2007 influenza virus vacc ine, whole virus Xr J1 Work Phone: [facility] Payers Date Payer Category Payer Unknown [id number] 2022 Self-pay 2022 Unknown [id number] 2019 Unknown MMO MMO MEDICARE SUPPLEMENT [id number] 2019-Present [phone] [address] [place] [address] Indemnity [id number] 2015 Unknown [id number] 2009 Medicare MEDICARE MEDICAR E A AND B [id number] 2009-Present [phone] [address] [address] [place] [address] Medicare [id number] 2009 Medicare [id number] 1959 Medicare [id number] 1959 Unknown [id number] 1944 Unknown [id number] 1944 Unknown [id number] 1944 Unknown [id number] 1944 Unknown [id number] 1944 Unknown [id number] 1944 Unknown [id number] 1944 Unknown [id number] 1944 Unknown [id number] 1944 Unknown [id number] 1944 Unknown [id number] 1944 Unknown [id number] 1944 Unknown [id number] 1944 Unknown [id number] 1944 Unknown [id number] Medicare [id number] Unknown [id number] Social History Date Type Detail Facility Start: 07-06-2020 End: 08-28-2022 Tobacco smoking status NHIS Never smoked tobacco [facility] Start: 04-22-2017 End: 07-06-2020 Tobacco use and exposure Smokeless tobacco non-user [facility] Start: 10-16-2021 End: 05-07-2023 Alcohol intake Lifetime non-drinker (finding) [facility] Start: 07-06-2020 History SDOH Alcohol Frequency 1 [facility] Start: 1945 Sex Assigned At Not on file [facility] Start: 10-06-2021 End: 10-16-2021 Exposure to SARS-CoV-2 (event) Not sure [facility] Start: 07-06-2020 End: 09-24-2022 Sex Assigned At [facility] Start: 07-06-2020 End: 09-24-2022 History of Social function [facility] How often to you hav e a drink containing alcohol? Never [facility] Average Number of Drinks Not on file [facility] Start: 08-28-2022 Tobacco use and exposure Former smokeless tobacco user [facility] Within the last year , have you been afraid of your partner or ex-partner? No [facility] Are you now , , , , never or living with a partner? [facility] Do you feel stress - tense, restless, nervous, or anxious, or unable to sleep at night because your mind is troubled all the time - these days [OSQ] Not at all [facility] (I/We) worried wheth er (my/our) food would run out before (I/we) got money to buy more. Never true [facility] Start: 06-18-2022 Gender identity Identifies as female gender (finding) [facility] Start: 03-03-2022 Alcohol intake Current drinke r [facility] (finding[facility] Procedure Code Equipment Code Equipment Origin al Text Equipment Identifier Dates Ring Rodriguez Mc3 28mm Titanium Silicone Rubber Polyester Annuloplasty 1 - [id number] Start: 07-31-2020 Valve Biocor Fle xfit 29mm 27mm Porcine Pericardial 19mm Mitral - [id number] Start: 07-31-2020 Pen Harned 31G X 8 MM Clinical Notes 08-02-2020 to 10-20-2022 Note Date & Type Note Facility 10-20-2022 Evaluation note Encounter Date Diagnosis Assessment Notes Oct, Type 2 diabetes mellitus with hyperglycemia (ICD-10 - E11.65) [facility] Other [id number] Evaluation note* Encounter Date Diagnosis Assessment Notes Treatment Notes Treatment Clinical Notes August, Type 2 diabetes mellitus with hyperglycemia (ICD-10 - E11.65) ASSESSMENT: 1. Uncontrolled, a Type 2 diabetes with A1c of 7.4% improved but unclear medication regime and no characterization today 2. Family history of type 1 diabetes and a niece, early onset diabetes for Orquidea. C-peptide and autoantibodies imply type 2 diabetes diagnosis. These substantiate type 2 diabetes. They did endorse that daughter is dosing Lantus inconsistently, it is large but they did not bring this and do not know how much insulin she is given each evening in the form of Lantus. He will look at logs and use average dose ongoing if daughter will comply. I have encouraged a sliding scale of 1 unit for every 50 mg/dL above goal. I cannot add any other classes of medications due to unknown variability. I did read nephrology notes which do not indicate need for SGLT2 I and based on GFR will not provide glycemic benefit if we were able to start that in the future. I have asked that they bring daughter for next appointment. 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 They will sit down with staff development educator for a download and review of diabetes treatment. Hopeful for increased consistency. They will call ahead of this appointment if any questions or concerns 3. Patient is alert, oriented and receptive to making changes or counseling. Notes: Seen for an assessment of current glucose pattern, changes in treatment plan, counseling and coordination of care related to diabetes, risks, and benefits of treatment, medications, side effects. Given handouts to reinforce concepts reviewed during counseling, see scanned notes. TOPICS REVIEWED: 1. Time was spent reviewing: a. Basic concepts of diabetes, progressive beta cell , concepts of basal/bolus/correcti ve insulin requirements. Basal: The goal is fasting blood glucose of 90-130mg. IF fasting blood glucose starts to run under 100mg 3x's/ week, decrease dose by 10%. Bolus: The goal is to hold the blood glucose level steady meal to meal. If pt. is going to have increased physical activity after a meal, decrease the schedule meal dose prior to the activity by 30-50%. If pt. skips a meal do not take this dose. Correction: The goal is to correct an elevated glucose back into the 100-150mg range b. Nutrition: Concepts of healthy diet, encouraged to decrease saturated fat in diet and increase non-starchy vegetables and fruits in diet. BMI: Pt. needs to select one small change to decrease caloric intake or increase physical activity to help decrease weight. c. Correct treatment of hypoglycemia, carry a glucose source at all times on your person, in vehicles, and at bedside. Can use glucose tablets/4, four ounces of pop or juice equal to 15 G of carbohydrate. Blood glucose should be 100 mg/dl or higher when driving. d. ADA glucose goals for age and medical complexity reviewed e. Patient questions addressed 2. Activity/exercise: Encouraged to start any form of physical activity. Start low level and increase slowly to a minimal goal of 150 minutes/week. Limit activity to what is allowed by other issues such as cardiac, pulmonary or orthopedic restrictions. 3. Standards of care: Reminded to have an annual dilated eye exam, A1C every 3 months, urine testing for microalbumin once/year, check feet daily and report any cuts or sores that do not appear to be healing. 4. Meter: Plan to check blood glucose: Please check blood glucose levels 4 times/day. Back to back meals reveal effectiveness of bolus dosing. The blood glucose data is used to determine insulin doses and confirm symptoms for hypoglycemia and hyperglcyemia. 5. [facility]. Contact office if any issues or concerns with patterns of hypoglycemia, hyperglycemia, or diabetes medication issues. 6. Prescriptions: [facility] pharmacy[facility]Door 6. August, Vitamin D deficiency (ICD-10 - E55.9) Learning About Vitamin D material was published to portal August, Dietary counseling and surveillance (ICD-10 - Z71.3) Learning About Healthy Weight material was published to portal August, Hyperlipidemia (ICD-10 - E78.5) Learning About High Cholesterol material was published to portal August, HTN (hypertension) (ICD-10 - I10) High Blood Pressure: Care Instructions material was published to portal August, care home current use of insulin (ICD-10 - Z79.4) August, BMI 33.0-33.9,adult (ICD-10 - Z68.33) May benefit from GLP-1 RA, will substantiate diabetes type diagnosis first August, Other I have spent 30 minutes with this patient and over 50% of the visit was counseling done by myself, Italia RAMIRES. [facility] Other 03-15-2023 Evaluation note* Encounter Date Diagnosis Assessment Notes Treatment Notes Treatment Clinical Notes Jun, Type 2 diabetes mellitus with hyperglycemia (ICD-10 - E11.65) ASSESSMENT: 1. Uncontrolled, a Type 2 diabetes with A1c of 8.1% (03-14-2022 per PCP) 2. Family history of type 1 diabetes and a niece, early onset diabetes for Orquidea. C-peptide and autoantibodies imply type 2 diabetes diagnosis. Tania shows good glycemic control with GMI of 7.4, implies improvement, variability is high and she does have 5% lows. She is not getting consistent insulin therefore the picture is clear. We will reduce her Lantus to 12 units daily, continue the Humalog 1 unit for every 20 carbohydrates, dinner only would be reasonable. I will also have them correct before meals and at hour of sleep with a 1: 50 mg/dL insulin sliding scale. We will consider Ozempic at their next appointment when variability is less and low blood sugar is abated. We will consider SGLT2i based on outcome of renal follow-up T Type 2 diabetes diagnosis we will optimize with SGLT2 secondary to her cardiovascular history and labs, can use GLP-1 RA if no contraindications secondary to multiple mechanism of action benefits. We will have her return to clinic for download of her tania device in 8 weeks, for interval assessment. I again invite to have a daughter who delivers mother's medications for diabetic education with patient/spouse today feel that she will be resistant. I have offered phone calls and provided handwritten information to hopefully assist in ease of understanding. REQUEST LABS FROM REE[facility], NOTES FROM ANTONY 3. Patient is alert, oriented and receptive to making changes or counseling. Notes: Seen for an assessment of current glucose pattern, changes in treatment plan, counseling and coordination of care related to diabetes, risks, and benefits of treatment, medications, side effects. Given handouts to reinforce concepts reviewed during counseling, see scanned notes. TOPICS REVIEWED: 1. Time was spent reviewing: a. Basic concepts of diabetes, progressive beta cell , concepts of basal/bolus/correctiv e insulin requirements. Basal: The goal is fasting blood glucose of 90-130mg. IF fasting blood glucose starts to run under 100mg 3x's/ week, decrease dose by 10%. Bolus: The goal is to hold the blood glucose level steady meal to meal. If pt. is going to have increased physical activity after a meal, decrease the schedule meal dose prior to the activity by 30-50%. If pt. skips a meal do not take this dose. Correction: The goal is to correct an elevated glucose back into the 100-150mg range b. Nutrition: Concepts of healthy diet, encouraged to decrease saturated fat in diet and increase non-starchy vegetables and fruits in diet. BMI: Pt. needs to select one small change to decrease caloric intake or increase physical activity to help decrease weight. c. Correct treatment of hypoglycemia, carry a glucose source at all times on your person, in vehicles, and at bedside. Can use glucose tablets/4, four ounces of pop or juice equal to 15 G of carbohydrate. Blood glucose should be 100 mg/dl or higher when driving. d. ADA glucose goals for age and medical complexity reviewed e. Patient questions addressed 2. Activity/exercise: Encouraged to start any form of physical activity. Start low level and increase slowly to a minimal goal of 150 minutes/week. Limit activity to what is allowed by other issues such as cardiac, pulmonary or orthopedic restrictions. 3. Standards of care: Reminded to have an annual dilated eye exam, A1C every 3 months, urine testing for microalbumin once/year, check feet daily and report any cuts or sores that do not appear to be healing. 4. Meter: Plan to check blood glucose: Please check blood glucose levels 4 times/day. Back to back meals reveal effectiveness of bolus dosing. The blood glucose data is used to determine insulin doses and confirm symptoms for hypoglycemia and hyperglcyemia. 5. [facility]. Contact office if any issues or concerns with patterns of hypoglycemia, hyperglycemia, or diabetes medication issues. 6. Prescriptions: [facility] pharmacy/Door 6. Jun, Vitamin D deficiency (ICD-10 - E55.9) Learning About Vitamin D material was published to portal Jun, Dietary counseling and surveillance (ICD-10 - Z71.3) Learning About Healthy Weight material was published to portal Jun, Hyperlipidemia (ICD-10 - E78.5) Learning About High Cholesterol material was published to portal Jun, HTN (hypertension) (ICD-10 - I10) High Blood Pressure: Care Instructions material was published to portal Jun, care home current use of insulin (ICD-10 - Z79.4) Jun, BMI 33.0-33.9,adult (ICD-10 - Z68.33) May benefit from GLP-1 RA, will substantiate diabetes type diagnosis first Jun, Other I have spent 40 minutes with this patient and over 50% of the visit was counseling done by myself, Italia RAMIRES. [facility] Other 02-15-2023 Evaluation note* Encounter Date Diagnosis Assessment Notes Treatment Notes Treatment Clinical Notes May, Type 2 diabetes mellitus with hyperglycemia (ICD-10 - E11.65) Patient in today with her for review of blood glucose logs, food logs, and insulin dosing. Patient's appointment scheduled for Tania download, but pt reports she never received a call from [facility] to grain picker Tania. RN called [facility] pharmacy, staff states medical records are needed prior to coverage determination. Informed pharmacy office was not notified of medical record request. Medical records were sent to fax # [phone]. Pharmacy states determination could take up to 10 days. Patient's meter was downloaded with ranges between lowest 60-354 highest for the past 14 days. Average reading 158 mg/dl.Time in ranges very high 12%, high 17%, target range 67%, low 4%, and very low 0%. Patient states she has been checking her blood sugars ac, hs with a glucose goal of 90-130 ac 120-180 hs. Patient states she was asymptomatic with low readings. Discussed with patient the importance of insulin compliance, pt states she forgot to cover her bedtime blood glucose. Patient has been able to use corrective scale 1:50 before meals. Meter report downloaded and discussed with CYNTHIA Duran. Per DCS for patient to continue Humalog with corrective 1:50 scale, unless bedtime which she will receive half coverage only if over 200 mg/dl. Continue Lantus 12 units in the am. Discussed if pt's fasting blood glucose was <100 3/7 days per week, pt instructed to decrease dose by 1 unit. Pt states understanding. Written information was provided including 1:50 corrective scale with bedtime scale. Discussed meal planning examples and reviewed use of use of corrective scale. Encouraged patient to check glucose before meals and bedtime. Patient and stated pt has worn Tania 1-2 years ago and know how to apply once received. Instructed to call office with any questions or concerns. Encouraged to follow up for next appointment. 30 minutes was spent on education by Stephani KHOURY, RN [facility] Other 07-13-2022 NoteHNO ID: [id number] Author: Prince Trujillo MD Service: ? Author Type: Physician Type: Progress Notes Filed: 10/16/2021 10:16 PM Note Text: [facility] [place] [facility] Fuller Department of Cardiovascular Medicine SECTION OF CARDIOVASCULAR IMAGING OUTPATIENT VISIT DATE October 16, 2021 OUTPATIENT VISIT TYPE Established PRIMARY CARE PHYSICIAN: Theresa Valles MD ([facility]) [address] [place] [address] REFERRING PHYSICIAN: Theresa Valles MD ([facility]) [address] [facility] [address] CHIEF COMPLAINT: Follow-up. Subjective HISTORY OF PRESENT ILLNESS: Ms. Yen is a 76 year old female who presents today for follow-up. I last reviewed Ms. Yen on October 05, 2020. She is accompanied by her daughter during the consultation. She has a history of peripheral vascular disease (status post left second toe amputation), stage 4 chronic kidney disease, mitral and tricuspid regurgitation. Due to progressive decompensated heart failure, she was admitted for further evaluation. On July 31, 2020, Ms. Yen underwent mitral valve replacement with a size 29 Biocor, and tricuspid valve repair with size [address] Anguiano. Post-operatively, she was taken back to the OR for bleeding. She developed post-operative atrial fibrillation, requiring cardioversion. She also required transient dialysis support. She also developed heparin induced thrombocytopenia, and was managed with bivalirudin. Since last review, Ms. Yen has been clinically well from the cardiac perspective. She no longer experiences exertional dyspnea. PAST CARDIAC HISTORY: As noted above. PAST MEDICAL HISTORY Diagnosis Date - Amputation of great toe, left, traumatic (HCC) - Amputation of second toe, left, traumatic (HCC) - CKD (chronic kidney disease) stage 4, GFR 15-29 ml/min (HCC) - Depression - Diabetes mellitus (HCC) type 2 - Diverticulosis - HLD (hyperlipidemia) - HTN (hypertension) - Mitral valve regurgitation moderate to severe per OSH Echo on 06/04/2020 - Morbid obesity (HCC) - Osteoarthritis - Osteomyelitis (HCC) - PAD (peripheral artery disease) ([facility]) - Spinal stenosis - Tricuspid valve regurgitation moderate to severe per per OSH Echo on 06/04/2020 - Vitamin D deficiency PAST SURGICAL HISTORY Procedure Laterality Date - ABLATION L3, 4,5 - CARPAL TUNNEL Right - CATARACT EXTRACTION HX - COLONOSCOPY - EYE SURGERY HX Bilateral - FOOT SURGERY HX - NERVE BLOCK - TOE SURGERY HX left great toe amputation - TOE SURGERY HX left foot second digit amputation SOCIAL HISTORY Social History Tobacco Use - Smoking status: Never Smoker - Smokeless tobacco: Never Used Substance Use Topics - Alcohol use: Never - Drug use: Not on file FAMILY HISTORY Problem Relation Age of Onset - Diabetes Mother - Heart Attack Father at age 80 - Diabetes Father - Cancer Maternal Grandmother - Kidney Disease Paternal Grandfather - Diabetes Daughter ALLERGIES: ALLERGIES Allergen Reactions - Heparin Other: See Comments Confirmed HIT 08/05/2020 MEDICATIONS: warfarin (COUMADIN) 1 mg tablet Take 1 mg by mouth as directed. bumetanide (BUMEX) 1 mg tablet Take 1 tablet by mouth twice daily. aspirin 81 mg chewable tablet Take 1 tablet by mouth once daily. gabapentin (NEURONTIN) 100 mg capsule Take 2 capsules by mouth twice daily for 30 days. acetaminophen (TYLENOL) 325 mg tablet Take 1-2 tablets by mouth every 6 hours as needed for Pain or Fever (specify). glucagon 1 mg/mL injection Inject 1 mg intramuscularly as needed. insulin glargine (LANTUS SOLOSTAR, BASAGLAR KWIKPEN) 100 unit/mL (3 mL) Inject 10 Units subcutaneously every morning. insulin lispro 100 unit/mL injection Inject 12 Units subcutaneously daily with breakfast. insulin lispro 100 unit/mL injection Inject 2 Units subcutaneously daily with dinner. insulin lispro 100 unit/mL injection Inject 0-5 Units subcutaneously w MEALS. sertraline (ZOLOFT) 100 mg tablet Take 100 mg by mouth once daily. ferrous sulfate (IRON ORAL) Take 130 mg by mouth once daily. warfarin (COUMADIN) 3 mg tablet [address] (PROTONIX) 20 mg tablet Take 1 tablet by mouth DAILY (6 AM). metoprolol tartrate, short acting, (LOPRESSOR) 25 mg tablet Take 1 tablet by mouth every 12 hours. PHYSICAL EXAMINATION: BP 108/70 (BP Site: Left Arm, BP Position: Sitting, BP Cuff Size: Regular Adult) Pulse 65 Ht 152.4 cm (5') Wt 76.2 kg (168 lb) SpO2 98% BMI 32.81 kg/m? General: Looks well. Skin: No clubbing, no cyanosis. Eyes: Extra ocular movements intact Oropharynx: Teeth in good repair. Neck: JVP + 4 cm, no carotid bruits, carotids have a normal upstroke. Lungs: Overall clear air entry. Heart: Regular rhythm, PMI not displaced, S1, S2, no loud murmurs. Abdomen: Soft, nontender. Extremities: No significant peripheral (more content not included)...[facility]07-13-2022 NoteHNO ID: [id number] Author: RT Dinah(Fredi) Service: ? Author Type: Technologist Type: Progress Notes Filed: 10/16/2021 2:26 PM Note Text: Radiology Service Progress Note PATIENT NAME: Arthur Yen DATE OF SERVICE: October 16, 2021 TIME: 2:25 PM PATIENT IDENTITY VERIFICATION COMPLETED USING TWO (2) IDENTIFIERS: Name and Date of confirmed by patient verbally. FALL SCREENING: Has the patient had 2 falls in the last year or 1 fall with injury or currently using an Ambulatory Assistive Device (Walker, Cane, Wheelchair, Crutches, etc.)? No PATIENT GENDER DATA: Female. status: : No status: NO. PATIENT RELEVANT IMPLANT DATA REVIEWED: Not Applicable RADIOLOGY DEPARTMENT: General X-ray: Exam(s) Completed: Chest X-Ray PERIPHERAL IV DATA: Not applicable SIGNED BY: RT Dinah(R) October 16, 2021 2:25 [facility]07-13-2022 History of Present illness Narrative* RT Dinah(R) - 10/16/2021 2:30 PM EDT Radiology Service Progress Note PATIENT NAME: Arthur Yen DATE OF SERVICE: October 16, 2021 TIME: 2:25 PM PATIENT IDENTITY VERIFICATION COMPLETED USING TWO (2) IDENTIFIERS: Name and Date of confirmedby patient verbally. FALL SCREENING: Has the patient had 2 falls in the last year or 1 fall with injury or currently using an Ambulatory Assistive Device (Walker, Cane, Wheelchair, Crutches, etc.)? No PATIENT GENDER DATA: Female. status: : No status: NO. PATIENT RELEVANT IMPLANT DATA REVIEWED: Not Applicable RADIOLOGY DEPARTMENT: General X-ray: Exam(s) Completed: Chest X-Ray PERIPHERAL IV DATA: Not applicable SIGNED BY: RT Dinah(R) October 16, 2021 2:25 PM [facility] History of Past illness Narrative* Problem Noted Date Resolved Date Hematuria 08/02/2020 08/05/2020 Overview: History - Per urology consult 07/11: On 07/07 a owens catheter was placing by nursing which was immediately followed by the development of gross hematuria and passage of blood clots per urethra c/f traumatic owens which is why urology is consulted. Hematuria has improved. Bladder was manually irrigated removing few small clots, until clear. I assisted the resident throughout the procedure bladder irrigation. Likely traumatic hematuria is expected to resolve in next few days. Assessment: No hematuria noted. Plan: Outpatient urology follow-up suggested in about 6-8 weeks after discharge. 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 Assessment: CXR with pulmonary edema. Improved oxygen requirements, weaned to 2LNC. Plan: Volume removal with IHD and daily diuretics. Continue right pigtail, right CT and left CT. Volume overload 08/01/2020 08/16/2020 Overview: History: preoperative HF; aggressively diuresed Assessment: CXR with pulmonary edema. Has been net negative daily. Plan: Volume removal with IHD; continue furosemide per nephrology. Acute blood loss anemia 08/01/2020 08/05/19 Overview: History: postoperative with reexploration for bleeding; transfused 7u total Assessment: H/H 9.6/29.6 after transfusion. Hemodynamics improving. No s/s acute bleeding August 03, 2020 See coordination of care note Transfuse for symptomatic anemia On mechanically assisted ventilation 07/31/2020 08/02/2020 Overview: History: elective intubation for cardiac surgery Assessment: minimal ventilatory settings; elective glidescope airway August 03, 2020 See coordination of care note Postprocedural hypotension 07/31/202008/05 Overview: History: PMH of HTN Assessment: Hypotensive requiring vasopressor support. Plan: Titrate norepinephrine to maintain MAP 65-75. Weaning SDS. Lactate blood increase 07/31/2020 Preop testing 07/18/2020 08/15/2020 Overview: [facility] Surgeon: Cedric Anguiano M.D. COVID-19 pending Informed Consent Completed: No STS Score: Procedure: MVR + CAB CALCULATE Risk of Mortality: 18.802% Renal Failure: 26.229% Permanent Stroke: 3.177% Prolonged Ventilation: 43.024% DSW Infection: 1.083% Reoperation: 7.155% Morbidity or Mortality: 57.977% Short Length of Stay: 4.641% Long Length of Stay: 40.333% CAD: Yes - CAD on Problem List: Yes Is intended procedure a CABG: TBD - is a beta mil ordered? No - reason: pending H & P completed: Yes PA/LAT: Completed CT: Completed MRI: N/A LE US: N/A Cath: Yes [facility] - reviewed: Yes EKG: Completed Is patient on Amiodarone? No Echo:Completed EF %: 66 PI's: (R)dom s/p (R)radial LHC; (L)88% Carotid: Completed Mapping: Completed Dental: [facility] Completed PFT's: Completed pulmonary consulted Recent Labs 07/18/20 0527 WBC 5.92 HB 11.4* HCT 37.9 PLT 139* INR 1.1 CREAT 1.98* TSH Date Value Ref Range Status 07/19/2020 7.660 (H) 0.270 - 4.200 uU/mL Final normal Free T4 Hemoglobin A1C (%) Date Value 07/19/2020 6.3 UA: Abnormal/neg HCG:N/A ABO/ABO Confirmed: Yes ABO/RH(D) Date Value Ref Range Status 07/10/2020 O POSITIVE Final Blood ordered: No Willing to accept blood: Yes SA Swab: Yes - results: Negative Last Dose of Anticoagulation: SC Heparin Op Note: N/A Pacemaker Check: N/A Implants: no Consults: Interventional Cardiology, Dentistry , Pulmonary, Nephrology Nephrology consulted today re: risk for dialysis --->evaluate her risk of developing an acute renal failure requiring dialysis post heart surgery. According to the Kyra score, this ranges between 10-20%. Risk was discussed with the patient. All questions answered.Jon Charles MD, FASN - Pager [phone] July 25, 2020 @ 12:23 PM PULMONARY Consulted 07/23/2020-->- -she is at high but not prohibitive risk for silvana-operative pulmonary complications-- recommend silvana-op incentive spirometry, DVT prophylaxis, early post-op mobilization. We will sign off- please call with further questions. All questions were answered to the patient's satisfaction. Christy Reyes MD MS FCCP FAASM Pulmonary, Critical Care and Sleep Medicine DM: yes HgbA1c 6.3(07/19/20) Cardiac Surgical prep: Yes SIGNATURE: Adela Espino APRN.BERNADINE DATE of SERVICE: 07/18/2020 TIME of SERVICE: 4:48 PM Edenilson Nino APRN.BERNADINE Ortiz RN COMPLAINTS COORDINATOR.HEAD OF PARTNER DEVELOPMENT CHECKED BY: RE 07/25/20 Pulmonary hypertension 07/06/2020 Overview: August 03, 2020 See coordination of care note Restrictive lung disease 021 Overview: August 03, 2020 See coordination of care note documented as of this encounter (statuses as of 10/17/2021) [facility] History of Past illness Narrative* Problem Noted Date Resolved Date Hematuria 08/02/2020 08/05/2020 Overview: History - Per urology consult 07/11: On 07/07 a owens catheter was placing by nursing which was immediately followed by the development of gross hematuria and passage of blood clots per urethra c/f traumatic owens which is why urology is consulted. Hematuria has improved. Bladder was manually irrigated removing few small clots, until clear. I assisted the resident throughout the procedure bladder irrigation. Likely traumatic hematuria is expected to resolve in next few days. Assessment: No hematuria noted. Plan: Outpatient urology follow-up suggested in about 6-8 weeks after discharge. 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 Assessment: CXR with pulmonary edema. Improved oxygen requirements, weaned to 2LNC. Plan: Volume removal with IHD and daily diuretics. Continue right pigtail, right CT and left CT. Volume overload 08/01/2020 08/16/2020 Overview: History: preoperative HF; aggressively diuresed Assessment: CXR with pulmonary edema. Has been net negative daily. Plan: Volume removal with IHD; continue furosemide per nephrology. Acute blood loss anemia 08/01/2020 08/05/19 Overview: History: postoperative with reexploration for bleeding; transfused 7u total Assessment: H/H 9.6/29.6 after transfusion. Hemodynamics improving. No s/s acute bleeding August 03, 2020 See coordination of care note Transfuse for symptomatic anemia On mechanically assisted ventilation 07/31/2020 08/02/2020 Overview: History: elective intubation for cardiac surgery Assessment: minimal ventilatory settings; elective glidescope airway August 03, 2020 See coordination of care note Postprocedural hypotension 07/31/202008/05 Overview: History: PMH of HTN Assessment: Hypotensive requiring vasopressor support. Plan: Titrate norepinephrine to maintain MAP 65-75. Weaning SDS. Lactate blood increase 07/31/2020 Preop testing 07/18/2020 08/15/2020 Overview: [facility] PRE[facility]OP [facility] Surgeon: Cedric Anguiano M.D. COVID-19 pending Informed Consent Completed: No STS Score: Procedure: MVR + CAB CALCULATE Risk of Mortality: 18.802% Renal Failure: 26.229% Permanent Stroke: 3.177% Prolonged Ventilation: 43.024% DSW Infection: 1.083% Reoperation: 7.155% Morbidity or Mortality: 57.977% Short Length of Stay: 4.641% Long Length of Stay: 40.333% CAD: Yes - CAD on Problem List: Yes Is intended procedure a CABG: TBD - is a beta mil ordered? No - reason: pending H & P completed: Yes PA/LAT: Completed CT: Completed MRI: N/A LE US: N/A Cath: Yes [facility] - reviewed: Yes EKG: Completed Is patient on Amiodarone? No Echo:Completed EF %: 66 PI's: (R)dom s/p (R)radial LHC; (L)88% Carotid: Completed Mapping: Completed Dental: [facility] Completed PFT's: Completed pulmonary consulted Recent Labs 07/18/20 0527 WBC 5.92 HB 11.4* HCT 37.9 PLT 139* INR 1.1 CREAT 1.98* TSH Date Value Ref Range Status 07/19/2020 7.660 (H) 0.270 - 4.200 uU/mL Final normal Free T4 Hemoglobin A1C (%) Date Value 07/19/2020 6.3 UA: Abnormal/neg HCG:N/A ABO/ABO Confirmed: Yes ABO/RH(D) Date Value Ref Range Status 07/10/2020 O POSITIVE Final Blood ordered: No Willing to accept blood: Yes SA Swab: Yes - results: Negative Last Dose of Anticoagulation: SC Heparin Op Note: N/A Pacemaker Check: N/A Implants: no Consults: Interventional Cardiology, Dentistry , Pulmonary, Nephrology Nephrology consulted today re: risk for dialysis --->evaluate her risk of developing an acute renal failure requiring dialysis post heart surgery. According to the Kyra score, this ranges between 10-20%. Risk was discussed with the patient. All questions answered.Jon Charles MD, FASN - Pager [phone] July 25, 2020 @ 12:23 PM PULMONARY Consulted 07/23/2020-->- -she is at high but not prohibitive risk for silvana-operative pulmonary complications-- recommend silvana-op incentive spirometry, DVT prophylaxis, early post-op mobilization. We will sign off- please call with further questions. All questions were answered to the patient's satisfaction. Christy Reyes MD MS FCCP FAASM Pulmonary, Critical Care and Sleep Medicine DM: yes HgbA1c 6.3(07/19/20) Cardiac Surgical prep: Yes SIGNATURE: Adela Espino APRN.BERNADINE DATE of SERVICE: 07/18/2020 TIME of SERVICE: 4:48 PM Edenilson Nino APRN.BERNADINE Ortiz RN COMPLAINTS COORDINATOR.HEAD OF PARTNER DEVELOPMENT CHECKED BY: KATIE 07/25/20 Pulmonary hypertension 07/06/2020 Overview: August 03, 2020 See coordination of care note Restrictive lung disease 021 Overview: August 03, 2020 See coordination of care note documented as of this encounter (statuses as of 07/30/2022) [facility] History of Past illness Narrative* Problem Noted Date Diagnosed Date Resolved Date Hematuria 08/02/2020 08/05/2020 Overview: History - Per urology consult 07/11: On 07/07 a owens catheter was placing by nursing which was immediately followed by the development of gross hematuria and passage of blood clots per urethra c/f traumatic owens which is why urology is consulted. Hematuria has improved. Bladder was manually irrigated removing few small clots, until clear. I assisted the resident throughout the procedure bladder irrigation. Likely traumatic hematuria is expected to resolve in next few days. Assessment: No hematuria noted. Plan: Outpatient urology follow-up suggested in about 6-8 weeks after discharge. 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 Assessment: CXR with pulmonary edema. Improved oxygen requirements, weaned to 2LNC. Plan: Volume removal with IHD and daily diuretics. Continue right pigtail, right CT and left CT. Volume overload 08/01/2020 08/16/2020 Overview: History: preoperative HF; aggressively diuresed Assessment: CXR with pulmonary edema. Has been net negative daily. Plan: Volume removal with IHD; continue furosemide per nephrology. Acute blood loss anemia 08/01/2020 05/0 04/2020 Overview: History: postoperative with reexploration for bleeding; transfused 7u total Assessment: H/H 9.6/29.6 after transfusion. Hemodynamics improving. No s/s acute bleeding August 03, 2020 See coordination of care note Transfuse for symptomatic anemia On mechanically assisted ventilation 07/31/2020 08/02/2020 Overview: History: elective intubation for cardiac surgery Assessment: minimal ventilatory settings; elective glidescope airway August 03, 2020 See coordination of care note Postprocedural hypotension 07/31/2020 0 08/05/2020 Overview: History: PMH of HTN Assessment: Hypotensive requiring vasopressor support. Plan: Titrate norepinephrine to maintain MAP 65-75. Weaning SDS. Lactate blood increase 07/31/202008/01 Preop testing 07/18/2020 08/15/2020 Overview: [facility] PRE-OP CHECK[facility] Surgeon: Cedric Anguiano M.D. COVID-19 pending Informed Consent Completed: No STS Score: Procedure: MVR + CAB CALCULATE Risk of Mortality: 18.802% Renal Failure: 26.229% Permanent Stroke: 3.177% Prolonged Ventilation: 43.024% DSW Infection: 1.083% Reoperation: 7.155% Morbidity or Mortality: 57.977% Short Length of Stay: 4.641% Long Length of Stay: 40.333% CAD: Yes - CAD on Problem List: Yes Is intended procedure a CABG: TBD - is a beta mil ordered? No - reason: pending H & P completed: Yes PA/LAT: Completed CT: Completed MRI: N/A LE US: N/A Cath: Yes [facility] - reviewed: Yes EKG: Completed Is patient on Amiodarone? No Echo:Completed EF %: 66 PI's: (R)dom s/p (R)radial LHC; (L)88% Carotid: Completed Mapping: Completed Dental: [facility] Completed PFT's: Completed pulmonary consulted Recent Labs 07/18/20 0527 WBC 5.92 HB 11.4* HCT 37.9 PLT 139* INR 1.1 CREAT 1.98* TSH Date Value Ref Range Status 07/19/2020 7.660 (H) 0.270 - 4.200 uU/mL Final normal Free T4 Hemoglobin A1C (%) Date Value 07/19/2020 6.3 UA: Abnormal/neg HCG:N/A ABO/ABO Confirmed: Yes ABO/RH(D) Date Value Ref Range Status 07/10/2020 O POSITIVE Final Blood ordered: No Willing to accept blood: Yes SA Swab: Yes - results: Negative Last Dose of Anticoagulation: SC Heparin Op Note: N/A Pacemaker Check: N/A Implants: no Consults: Interventional Cardiology, Dentistry , Pulmonary, Nephrology Nephrology consulted today re: risk for dialysis --->evaluate her risk of developing an acute renal failure requiring dialysis post heart surgery. According to the Kyra score, this ranges between 10-20%. Risk was discussed with the patient. All questions answered.Jon Charles MD, FASN - Pager [phone] July 25, 2020 @ 12:23 PM PULMONARY Consulted 07/23/2020-->- -she is at high but not prohibitive risk for silvana-operative pulmonary complications-- recommend silvana-op incentive spirometry, DVT prophylaxis, early post-op mobilization. We will sign off- please call with further questions. All questions were answered to the patient's satisfaction. Christy Reyes MD MS FCCP FAASM Pulmonary, Critical Care and Sleep Medicine DM: yes HgbA1c 6.3(07/19/20) Cardiac Surgical prep: Yes SIGNATURE: Adela Espino APRN.CNP DATE of SERVICE: 07/18/2020 TIME of SERVICE: 4:48 PM SHARAD Davis RN APRN.HEAD OF PARTNER DEVELOPMENT CHECKED BY: KATIE 07/25/20 Pulmonary hypertension 07/06/202008/05 Overview: August 03, 2020 See coordination of care note Restrictive lung disease Overview: August 03, 2020 See coordination of care note documented as of this encounter (statuses as of 02/20/2023) [facility] note* Diagnosis Coronary artery disease involving false pass coronary artery of false pass heart without angina pectoris Nonrheumatic aortic valve insufficiency Aortic valve disorders documented in this encounter [facility] noteNo [employer]) Other Evaluation note* Diagnosis Mixed hyperlipidemia- Primary documented in this encounter [facility] note* Diagnosis Hx of mitral valve replacement- Primary Heart valve replaced by other means documented in this encounter [facility] note* Diagnosis S/P MVR (mitral valve replacement)- Primary Heart valve replaced by other means documented in this encounter [facility] note* Diagnosis Chronic kidney disease, stage 4 (severe) (CMS-HCC) documented in this encounter [facility] System[facility] general Narrative - Reported* Type Description Date Medical History type II diabetes Medical History hyperlipidemia Medical History open heart surgery-m itral valve replacement /tricuspid valve repair [facility] 2020 Medical History charcoal joint Medical History Atrial fibrillation Medical History Osteoarthritis Medical History spinal stenosis Medical History [place] Medical History diverticulitis Medical History GI hemorrhage Medical History lumbar spondolysis Medical History Chronic kidney disease Stage III Medical History carpal tunnel Medical History osteomylitis of toe Medical History gangrene of left toe Medical History PAD Medical History CHF Surgical History open hear surgery CC F/mitral valve replacement/tricuspid valve repair 2020 Surgical History right ankle Surgical History amputation, toe Hospitalization History See Above Perfect Memory Other InstructionsNot on filedocumented in this encounter [facility] Outpatient Procedure (Routine) - Authorized Specialty Diagnoses / Procedures Referred By Contac t Referred To [facility] Diagnoses S/P MVR (mitral valve replacement) Procedures ECG COMPLETE ECG ROUTINE ECG W/LEAST 12 LDS W/I&R Prince Trujillo MD [address] [place] [address] [facility] [address] [address] Referral ID Status Reason Start Date Expiration Date Visits Requested Visits Authorized [id number] Authorized Auto-Generat ed Referral 3 02/20/2024 1 1 [facility] for visit NarrativeDM, Referral Charley Quintero [facility] Visit Codes, [facility] Visit Codes, TKM 2 [facility] [employer] Other Reason for visit NarrativeDM, Referral [facility] Other Summary Purpose Family History No Family History Records FoundNo Family History Records FoundNo Family History Records FoundNo Family History Records FoundNo Family History Records FoundNo Family History Records FoundNo Family History Records FoundNo Family History Records Found Advance Directives No Advanced Directives Records FoundDocuments on File 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 Advance Directive(s) 07/07/2020 10:51 AM Additional Source Comments INFORMATION SOURCE (unrecogn ized section and content) DATE CREATED AUTHOR 09/25/2017 [facility] DATE CREATED AUTHOR AUTHOR'S ORGANIZ ATION 04/19/2021 [facility] DATE CREATED AUTHOR AUTHOR'S ORGANIZ ATION 04/19/2021 [facility] DATE CREATED AUTHOR AUTHOR'S ORGANIZ ATION 05/30/2021 [facility] DATE CREATED AUTHOR AUTHOR'S ORGANIZ ATION 11/09/2021 [facility] DATE CREATED AUTHOR AUTHOR'S ORGANIZ ATION 05/09/2023 [facility] DATE CREATED AUTHOR AUTHOR'S ORGANIZ ATION 05/15/2023 [facility] DATE CREATED AUTHOR AUTHOR'S ORGANIZ ATION 05/18/2023 [facility] Source Comments (unrecognize d section and content) In the event this informatio n is protected by the Federal Confidentiality of Alcohol and Drug Abuse Patient Records regulations: The Federal rules restrict any use of the information to criminally investigate or prosecute any alcohol or drug abuse patient.[facility] the event this information is protected by the Federal Confidentiality of Alcohol and Drug Abuse Patient Records regulations: The Federal rules restrict any use of the information to criminally investigate or prosecute any alcohol or drug abuse patient.[facility] Hospital[facility] the event this information is protected by the Federal Confidentiality of Alcohol and Drug Abuse Patient Records regulations: The Federal rules restrict any use of the information to criminally investigate or prosecute any alcohol or drug abuse patient.[facility] HospitalIn the event this information is protected by the Federal Confidentiality of Alcohol and Drug Abuse Patient Records regulations: The Federal rules restrict any use of the information to criminally investigate or prosecute any alcohol or drug abuse patient.[facility] Reason for Visit (unrecogniz ed section and content) Reason Comments [employer] Main J1 Care Teams (unrecognized sec tion and content) Electronic Assembly Relationship Specialty Start Date End Date Theresa Valles MD [address] [place] [address] PCP - General Family Practice 07/07/20 Sharon Mccracken, BERNARD.HEAD OF PARTNER DEVELOPMENT [address] [place] [address] Primary Service Vascular Medicine 09/27/20 Electronic Assembly Relationship Specialty Start Date End Date Theresa Valles MD [address] [place] [address] PCP - General Family Medicine 07/07/20 Sharon Mccracken, BERNARD.HEAD OF PARTNER DEVELOPMENT [address] [place] [address] Primary Service Vascular Medicine 09/27/20 Electronic Assembly Relationship Specialty Start Date End Date Theresa Valles MD [address] [place] [address] PCP - General Family Medicine 07/07/20 Sharon Mccracken, BERNARD.HEAD OF PARTNER DEVELOPMENT [address] [place] [address] Primary Service Vascular Medicine 09/27/20 Electronic Assembly Relationship Specialty Start Date End Date Theresa Valles MD [facility] [place] [address] PCP - General Family Medicine 07/07/20 Sharon Mccracken APRN.HEAD OF PARTNER DEVELOPMENT [address] [place] [address] Primary Service Vascular Medicine 09/27/20 Electronic Assembly Relationship Specialty Start Date End Date Theresa Valles MD [address] [place] [address] PCP - General Family Medicine 08/26/22 WonderTheresa eller MD [address] [facility] [place] [address] PCP - ACO Reach 08/28/22 Electronic Assembly Relationship Specialty Start Date End Date Theresa Valles MD [address] [place] [address] PCP - General Family Medicine 09/10/16 Electronic Assembly Relationship Specialty Start Date End Date Theresa Valles MD [address] [place] [address] PCP - General Family Medicine 08/26/22 Theresa Valles MD [address] [facility] [address] PCP - ACO Reach 08/28/22 FOR RECORDS PERTAINING TO PATIENTS WHO ARE OR HAVE BEEN ENROLLED IN A CHEMICAL DEPENDENCY/SUBSTANCEABUSE PROGRAM, SOME INFORMATION MAY BE OMITTED. This clinical summary was aggregated from multiple sources. Caution should be exercised in using it in the provision of clinical care. This summary normalizes information from multiple sources, and as a consequence, information in this document may materially change the coding, format and clinical context of patient data. In addition, data may be omitted in some cases. CLINICAL DECISIONS SHOULD BE BASED ON THE PRIMARY CLINICAL RECORDS. [facility] [employer] [facility]. provides no warranty or guarantee of the accuracy or completeness of information in this document.
--- NOTE | 2023-05-20 12:43 | ECG_ITS ---
[facility] Test Date: 2023-05-20 Pat Name: ARTHUR YEN Department: Room: - Gender: Female Mumps Developer: : 1945 Requested By: Theresa Ramos Order Number: [id number] Reading MD: CHAU ARNOLD Measurements Intervals [place] Rate: 96 P: 90 MA: 174 QRS: 257 QRSD: 128 T: 73 QT: 400 QTc: 453 Interpretive Statements 1100 Sinus rhythm 2450 Right bundle branch block 3234 Anteroseptal myocardial infarction, age undetermined 7100 Abnormal right axis deviation 9150 abnormal ECG t Electronically Signed On 05-20-2023 22:26:29 EST by CHAU ARNOLD
--- NOTE | 2023-05-20 12:44 | ED_ITS ---
HPI - General Adult General Chief complaint: Recheck/Abnormal Lab/Rx Stated complaint: SICK/COLD Time Seen by Provider: 05/20/23 12:40 Source: patient Mode of arrival: ambulance History of Present Illness HPI narrative: 77-year-old female presents to the emergency department because of an abnormal blood test. She has no understanding of why she is here. She apparently received a phone call from her primary care office and they told her to go to the ER. Reportedly she had an elevated INR and worsening renal function. She does not seem to have any complaints. Related Data Home Medications Medication Instructions Recorded Confirmed aspirin 81 mg tablet,delayed 81 mg PO DAILY 01/09/23 02/16/23 release (Adult Aspirin Regimen) bumetanide 1 mg tablet 1 mg PO BID 01/09/23 02/16/23 ferrous sulfate 325 mg (65 mg 650 mg PO DAILY 01/09/23 02/16/23 iron) tablet (Feosol) gabapentin 100 mg capsule 200 mg PO BID 01/09/23 02/16/23 insulin degludec 100 unit/mL (3 10 unit subcut QPM 01/09/23 02/16/23 mL) subcutaneous pen (Tresiba FlexTouch U-100 insulin) insulin lispro 100 unit/mL 1 sliding scale dose subcut 01/09/23 02/16/23 subcutaneous cartridge (Humalog USEASDIRECTD U-100 Insulin) metoprolol tartrate 25 mg tablet 25 mg PO BID 01/09/23 02/16/23 pantoprazole 40 mg tablet,delayed 40 mg PO DAILY 01/09/23 02/16/23 release sertraline 100 mg tablet 100 mg PO DAILY 01/09/23 02/16/23 simvastatin 40 mg tablet 40 mg PO QPM 01/09/23 02/16/23 warfarin 1 mg tablet 3 mg PO DAILY 01/09/23 02/16/23 Previous Rx's Medication Instructions Recorded levothyroxine 25 mcg tablet 25 mcg PO ACB #30 tabs 02/20/23 Allergies Allergy/AdvReac Type Severity Reaction Status Date / Time No Known Drug Allergies Allergy Verified 01/07/23 14:19 Review of Systems ROS Narrative A ten point review of systems is negative except as noted above. [facility] Medical History (Updated 05/20/23 @ 14:59 by Kerwin Covarrubias MD) Open wound of right thigh ?S71.101A - Unspecified open wound, right thigh, initial encounter (ICD-10) Heart failure ?I50.9 - Heart failure, unspecified (ICD-10) A-fib ?I48.91 - Unspecified atrial fibrillation (ICD-10) CAD (coronary artery disease) ?I25.10 - Atherosclerotic heart disease of [place] coronary artery without angina pectoris (ICD-10) Chronic respiratory failure ?J96.10 - Chronic respiratory failure, unspecified whether with hypoxia or hypercapnia (ICD-10) Charcot foot due to diabetes mellitus ?E11.610 - Type 2 diabetes mellitus with diabetic neuropathic arthropathy (ICD-10) Type 2 diabetes mellitus with hyperglycemia ?E11.65 - Type 2 diabetes mellitus with hyperglycemia (ICD-10) CKD (chronic kidney disease) stage 4, GFR 15-29 ml/min ?N18.4 - Chronic kidney disease, stage 4 (severe) (ICD-10) Anemia in chronic kidney disease ?N18.9 - Chronic kidney disease, unspecified (ICD-10) ?D63.1 - Anemia in chronic kidney disease (ICD-10) Kidney disease ?N28.9 - Disorder of kidney and ureter, unspecified (ICD-10) Diabetes ?E11.9 - Type 2 diabetes mellitus without complications (ICD-10) Anemia ?D64.9 - Anemia, unspecified (ICD-10) Consolidation of left lower lobe of lung ?J18.1 - Lobar pneumonia, unspecified organism (ICD-10) Bleeding from wound ?T14.8XXA - Other injury of unspecified body region, initial encounter (ICD- 10) Visit for wound care Surgical History (Updated 02/17/23 @ 10:20 by Joie Rosenthal NP) Hx of CABG ?Z95.1 - Presence of aortocoronary bypass graft (ICD-10) History of mitral valve repair ?Z98.890 - Other specified postprocedural states (ICD-10) Heart valve replaced ?Z95.2 - Presence of prosthetic heart valve (ICD-10) Family History (Updated 01/09/23 @ 23:22 by Flavia Jensen) Mother Family history of diabetes mellitus Father Family history of diabetes mellitus Family history of myocardial infarction Social History Within the past year, how often did you have a drink containing alcohol: never Within the past year, how often did you have six or more drinks on one occasion: never Score interpretation: A score less than 3 is consistent with normal alcohol consumption. Smoking status: Never smoker Second hand tobacco smoke exposure: No Non-prescribed substance use: denies use Previous occupational history: Known occupational exposures/hazards: No Highest level of school completed/degree received: high school graduate Do you want help with school or training: No Are you now , , , , never or living with a partner: In a typical week, how many times do you talk on the telephone with family, friends, or neighbors: 3 or more times per week How often do you get together with friends or relatives: 3 or more times per week How often do you attend anabaptism or jew services: 4 or more times per year Do you belong to any clubs or organizations such as anabaptism groups unions, fraternal or athletic groups, or school groups: no Total score: 3 Score interpretation: A score of greater than or equal to 2 indicates the lowest level of social isolation. Little interest or pleasure in doing things: not at all Feeling down, depressed, or hopeless: not at all Feel stressed/tense/nervous/anxious/difficulty sleeping: only a little Due to disability, difficulty making decisions: No Do you think of yourself as: straight/heterosexual Gender Identity: female Exam Narrative Exam Narrative: Nurses note and vital signs reviewed and patient is not hypoxic. General: The patient in no apparent distress. Patient is resting comfortably on cart. Skin: Warm, dry, no pallor noted. There is no rash noted. Head: Normocephalic, atraumatic Eye: Normal conjunctiva, no drainage Ears, Nose, Mouth, and Throat: oral mucosa is moist. Nares patent. Cardiovascular: Regular Rate and Rhythm Respiratory: Patient is in no distress, no accessory muscle use, lungs are clear to auscultation, no wheezing, rales or rhonchi Back: non-tender GI: Soft and nontender Musculoskeletal: The patient has no evidence of calf tenderness, no pitting edema, symmetrical pulses noted bilaterally Neurological: Awake and alert. She knows her name and knows where she is. She did not get the year correct and she did not get her age correct Psychiatric: Cooperative Constitutional Vital Signs, click to edit/add: Last Vital Signs Temp 98.5 F 05/20/23 12:30 Pulse 98 H 05/20/23 14:10 Resp 18 05/20/23 14:10 BP 105/61 05/20/23 14:00 Pulse Ox 98 05/20/23 14:10 O2 Del Method Room Air 05/20/23 12:52 Course Vital Signs Vital signs: Vital Signs Temperature 98.5 F 05/20/23 12:30 Pulse Rate 100 H 05/20/23 12:30 Respiratory Rate 18 05/20/23 12:30 Blood Pressure 137/81 05/20/23 12:30 Pulse Oximetry 99 05/20/23 12:30 Oxygen Delivery Method Room Air 05/20/23 12:30 Temperature 98.5 F 05/20/23 12:30 Pulse Rate 98 H 05/20/23 14:10 Respiratory Rate 18 05/20/23 14:10 Blood Pressure 105/61 05/20/23 14:00 Pulse Oximetry 98 05/20/23 14:10 Oxygen Delivery Method Room Air 05/20/23 12:52 Medical Decision Making MDM Narrative Medical decision making narrative: The patient has elevated BUN and creatinine, BUN out of proportion to the creatinine. I suspect that she is over diuresed. She was also identified to have a UTI. Cultures were obtained and she was given IV Rocephin and slow IV fluids. She is being admitted. Findings are discussed with her . Differential Diagnosis Differential Diagnosis: Acute kidney injury, UTI, anemia, electrolyte imbalance Lab Data Lab results reviewed: Yes I reviewed the patient's lab results Labs: Lab Results 05/20/23 05/20/23 Range/Units 13:00 13:25 WBC 8.4 (4.0-11.0) 10^3/uL RBC 3.77 L (4.20-5.40) 10^6/uL Hgb 10.9 L (12.0-16.0) g/dL Hct 34.5 L (36.0-48.0) % MCV 91.5 (81.0-99.0) fL MCH 28.9 (26.7-34.0) pg MCHC 31.6 (29.9-35.2) g/dL RDW 18.8 H (11.0-15.0) % Plt Count 472 H (150-450) 10^3/uL MPV 9.7 (9.5-13.5) fL Neut % (Auto) 78.7 H (43.0-75.0) % Lymph % (Auto) 10.1 L (20.5-60.0) % [place] % (Auto) 8.6 (1.7-12.0) % Eos % (Auto) 1.5 (0.9-7.0) % Baso % (Auto) 0.7 (0.2-2.0) % Neut # (Auto) 6.6 H (1.4-6.5) 10^3/uL Lymph # (Auto) 0.9 L (1.2-3.8) 10^3/uL [place] # (Auto) 0.7 (0.3-0.8) 10^3/uL Eos # (Auto) 0.1 (0.0-0.7) 10^3/uL Baso # (Auto) 0.1 (0.0-0.1) 10^3/uL Abs Immat Gran (auto) 0.03 (0.00-0.03) 10^3/uL Imm/Tot Granulo (auto) 0.4 (0.0-0.5) % PT 28.0 H (9.0-11.6) sec INR 2.80 Sodium 135 L (136-145) mmol/L Potassium 3.8 (3.5-5.1) mmol/L Chloride 101 (98-107) mmol/L Carbon Dioxide 22.2 (21.0-32.0) mmol/L Anion Gap 15.6 BUN 110.0 H* (7.0-18.0) mg/dL Creatinine 2.34 H (0.55-1.02) mg/dL Est GFR ( Amer) 24 L (>=60) Est GFR (Non-Af Amer) 20 L (>=60) BUN/Creatinine Ratio 47.0 Glucose 188 H (74-106) mg/dL Lactate 1.7 (0.4-2.0) mmol/L Calcium 9.8 (8.5-10.1) mg/dL Urine Color Yellow (YELLOW) Urine Clarity Turbid A (CLEAR) Urine pH 6.0 (5.0-9.0) Ur Specific Stacy 1.020 (1.005-1.025) Urine Protein 100 A (NEG/TRACE) mg/dL Urine Glucose (UA) Negative (NEGATIVE) mg/dL Urine Ketones Negative (NEGATIVE) mg/dL Urine Occult Blood Moderate A (NEGATIVE) Urine Nitrite Negative (NEGATIVE) Urine Bilirubin Negative (NEGATIVE) Urine Urobilinogen 0.2 (0.2-1.0) EU/dL Ur Leukocyte Esterase Large A (NEGATIVE) Urine RBC 10-20 A (0-2) #/HPF Urine WBC >100 A (NONE SEEN) #/HPF Ur Squamous Epith Cells Few A (NONE/RARE) #/LPF Ur Renal Epithelial Cell Rare A (NONE SEEN) #/LPF Urine Bacteria Large A (NONE SEEN) #/HPF Urine Mucus None seen (NONE SEEN) Discharge Plan Discharge Chief Complaint: Recheck/Abnormal Lab/Rx Clinical Impression: Acute kidney injury, Urinary tract infection Patient Disposition: Admitted As Inpatient Time of Disposition Decision: 14:58 Condition: Good Prescriptions / Home Meds: No Action bumetanide 1 mg tablet 1 mg PO BID gabapentin 100 mg capsule 200 mg PO BID metoprolol tartrate 25 mg tablet 25 mg PO BID pantoprazole 40 mg tablet,delayed release (DR/EC) 40 mg PO DAILY sertraline 100 mg tablet 100 mg PO DAILY simvastatin 40 mg tablet 40 mg PO QPM warfarin 1 mg tablet 3 mg PO DAILY insulin degludec [Tresiba FlexTouch U-100] 100 unit/mL (3 mL) insulin pen 10 unit subcut QPM Humalog U-100 Insulin 100 unit/mL cartridge 1 sliding scale dose subcut USEASDIRECTD aspirin [Adult Aspirin Regimen] 81 mg tablet,delayed release (DR/EC) 81 mg PO DAILY ferrous sulfate [Feosol] 325 mg (65 mg iron) tablet 650 mg PO DAILY levothyroxine 25 mcg Tablet 25 mcg PO ACB Qty: 30 0RF Stand Alone Forms: Portal Instructions Referrals: MEGAN VALLES [Primary Care Provider] - 1 week
[2023-05-20 13:28] LABS: Basophils Absolute Auto 0.1 10^3/uL (0.0-0.1); Basophils Percent Auto 0.7 % (0.2-2.0); Eosinophils Absolute Auto 0.1 10^3/uL (0.0-0.7); Eosinophils Percent Auto 1.5 % (0.9-7.0); Hematocrit 34.5 % (36.0-48.0); Hemoglobin 10.9 g/dL (12.0-16.0); Immature Granulocytes Abs Auto 0.03 10^3/uL (0.00-0.03); Immature Granulocytes Pct Auto 0.4 % (0.0-0.5); Lymphocytes Absolute Auto 0.9 10^3/uL (1.2-3.8); Lymphocytes Percent Auto 10.1 % (20.5-60.0); Mean Corpuscular HGB Conc 31.6 g/dL (29.9-35.2); Mean Corpuscular Hemoglobin 28.9 pg (26.7-34.0); Mean Corpuscular Volume 91.5 fL (81.0-99.0); Mean Platelet Volume 9.7 fL (9.5-13.5); Monocytes Absolute Auto 0.7 10^3/uL (0.3-0.8); Monocytes Percent Auto 8.6 % (1.7-12.0); Neutrophils Absolute Auto 6.6 10^3/uL (1.4-6.5); Neutrophils Percent Auto 78.7 % (43.0-75.0); Platelet Count 472 10^3/uL (150-450); Red Blood Count 3.77 10^6/uL (4.20-5.40); Red Cell Distribution Width 18.8 % (11.0-15.0); White Blood Count 8.4 10^3/uL (4.0-11.0)
[2023-05-20 13:33] LABS: Anion Gap 15.6; Calcium 9.8 mg/dL (8.5-10.1); Carbon Dioxide 22.2 mmol/L (21.0-32.0); Chloride 101 mmol/L (98-107); Estimated GFR (African America 24 (>=60); Estimated GFR (Non-African Ame 20 (>=60); Glucose 188 mg/dL (74-106); Potassium 3.8 mmol/L (3.5-5.1); Sodium 135 mmol/L (136-145)
[2023-05-20 13:57] LABS: Bilirubin Urine NEGATIVE (NEGATIVE); Blood Urine MODERATE (NEGATIVE); Color Urine YELLOW (YELLOW); Glucose Urine UA NEGATIVE (NEGATIVE); Ketones Urine NEGATIVE (NEGATIVE); Leukocyte Esterase Urine LARGE (NEGATIVE); Nitrite Urine NEGATIVE (NEGATIVE); Protein Urine 100 mg/dL (NEG/TRACE); Urobilinogen Urine 0.2 EU/dL (0.2-1.0)
[2023-05-20 13:58] LABS: Clarity Urine TURBID (CLEAR)
[2023-05-20] MEDS: 0.9 % SODIUM CHLORIDE 1,000 ML 75 ML IV (14:08)
[2023-05-20 14:10] LABS: WBC Urine >100 #/HPF (NONE SEEN)
[2023-05-20 14:11] LABS: Bacteria Urine LARGE #/HPF (NONE SEEN); Mucus Urine NONE SEEN (NONE SEEN); Renal Epithelial Cells Urine RARE #/LPF (NONE SEEN); Squamous Epithelial Cell Urine FEW #/LPF (NONE/RARE)
[2023-05-20] MEDS: CEFTRIAXONE 1,000 MG in 0.9 % SODIUM CHLORIDE 50 ML 100 MG IV (14:31)
[2023-05-20 14:46] LABS: Lactate/Lactic Acid 1.7 mmol/L (0.4-2.0)
[2023-05-20 14:55] LABS: Alanine Aminotransferase 22 U/L (14-59); Albumin Globulin Ratio 0.4; Albumin Level 2.1 g/dL (3.4-5.0); Alkaline Phosphatase 183 U/L (46-116); Aspartate Amino Transferase 18 U/L (15-37); Bilirubin Direct 0.1 mg/dL (0.0-0.2); Bilirubin Total 0.3 mg/dL (0.2-1.0); Globulin 4.8 g/dL; Total Protein 6.9 g/dL (6.4-8.2)
[2023-05-20 15:00] LABS: PROCALCITONIN 1.31 ng/mL (0.00-0.50)
--- NOTE | 2023-05-20 15:55 | P.HP_ITS ---
H&P: HPI History of Present Illness Chief complaint: BACK PAIN Acute Kidney Injury UTI Narrative: 05/20/231499 This is a 77-year-old female patient with a complicated past medical history as outlined below including DM 2, A-fib on warfarin, s/p MVR w/ bioprosthetic valve, CAD/CABG x 1, CKD 3b/4, anemia of chronic disease, HFpEF on Bumex, legally blind, and functionally nonambulatory; who presented to the ED from home on the advice of her PCP due to an abnormal lab result that was drawn by home health nursing this morning. Apparently there was concern over her renal function and her INR on labs and she was sent to the ED for further evaluation. The patient denies any acute complaints. She was recently discharged from a local SNF approximately 2 weeks ago and has been doing well since discharge. She specifically denies chest pain, shortness of breath, N/V/D, abdominal pain, or dysuria. She has urinary frequency at baseline but does not note increased urinary frequency recently. Family does note recent foul-smelling urine. Workup in the ED revealed baseline anemia (Hgb 10.9), mild hyponatremia (135), GATO on CKD 4 (BUN 110, CR 2.34, GFR 20), and hyperglycemia (188). Her INR was 2.8 at the upper end of her therapeutic range of 2-3. UA was positive for UTI and a urine culture was ordered. The patient's home Bumex was recently decreased from twice daily dosing to once daily dosing about 1 week ago and she has been taking her Bumex as most recently prescribed. Her estimates th at she drinks 24 to 32 ounces of water daily plus a can of Coke Zero. He tries to encourage more water intake but that is the most the patient has been able to tolerate. She is being admitted to the hospitalist service in observation for dehydration, GATO on CKD 4, and acute UTI. At the time of my exam the patient is resting comfortably in bed. She is functionally blind and rarely opens her eyes at baseline, but was alert and oriented x 3 during my exam. Her describes intermittent mild confusion or disorientation but this is not unusual for the patient. She appears clinically dry on exam. We will initiate gentle IV fluids, hold her home Bumex for now, treat her UTI with Rocephin and monitor her labs carefully in the morning. Review of Systems ROS Status of ROS 10 or more systems reviewed and unremark able except as noted in history and below [facility] Medical History (Updated 05/20/23 @ 16:45 by Joie Rosenthal NP) Depression ?F32.A - Depression, unspecified (ICD-10) DM neuropathies ?E11.40 - Type 2 diabetes mellitus with diabetic neuropathy, unspecified (ICD-10) Abnormal echocardiogram ?R93.1 - Abnormal findings on diagnostic imaging of heart and coronary circu lation (ICD-10) Hypothyroid ?E03.9 - Hypothyroidism, unspecified (ICD-10) Weakness ?R53.1 - Weakness (ICD-10) Frequent falls ?R29.6 - Repeated falls (ICD-10) Open wound of right thigh ?S71.101A - Unspecified open wound, right thigh, initial encounter (ICD-10) Heart failure ?I50.9 - Heart failure, unspecified (ICD-10) A-fib ?I48.91 - Unspecified atrial fibrillation (ICD-10) CAD (coronary artery disease) ?I25.10 - Atherosclerotic heart disease of [place] coronary artery without angina pectoris (ICD-10) Chronic respiratory failure ?J96.10 - Chronic respiratory failure, unspecified whether with hypoxia or hypercapnia (ICD-10) Charcot foot due to diabetes mellitus ?E11.610 - Type 2 diabetes mellitus with diabetic neuropathic arthropathy (ICD-10) Type 2 diabetes mellitus with hyperglycemia ?E11.65 - Type 2 diabetes mellitus with hyperglycemia (ICD-10) CKD (chronic kidney disease) stage 4, GFR 15-29 ml/min ?N18.4 - Chronic kidney disease, stage 4 (severe) (ICD-10) Anemia in chronic kidney disease ?N18.9 - Chronic kidney disease, unspecified (ICD-10) ?D63.1 - Anemia in chronic kidney disease (ICD-10) Surgical History (Updated 02/17/23 @ 10:20 by Joie Rosenthal NP) Hx of CABG ?Z95.1 - Presence of aortocoronary bypass graft (ICD-10) History of mitral valve repair ?Z98.890 - Other specified postprocedural states (ICD-10) Heart valve replaced ?Z95.2 - Presence of prosthetic heart valve (ICD-10) Family History (Updated 10/06/23 @ 23:22 by Flavia Jensen) Mother Family history of diabetes mellitus Father Family history of diabetes mellitus Family history of myocardial infarction Social History Within the past year, how often did you have a drink containing alcohol: never Within the past year, how often did you have six or more drinks on one occasion: never Score interpretation: A score less than 3 is consistent with normal alcohol consumption. Smoking status: Never smoker Second hand tobacco smoke exposure: No Non-prescribed substance use: denies use Previous occupational history: Known occupational exposures/hazards: No Highest level of school completed/degree received: high school graduate Do you want help with school or training: No Are you now , , , , never or living with a partner: In a typical week, how many times do you talk on the telephone with family, friends, or neighbors: 3 or more times per week How often do you get together with friends or relatives: 3 or more times per week How often do you attend mandaen or jainism services: 4 or more times per year Do you belong to any clubs or organizations such as mandaen groups unions, [employer] or athletic groups, or school groups: no Total score: 3 Score interpretation: A score of greater than or equal to 2 indicates the lowest level of social isolation. Little interest or pleasure in doing things: not at all Feeling down, depressed, or hopeless: not at all Feel stressed/tense/nervous/anxious/difficulty sleeping: only a little Due to disability, difficulty making decisions: No Do you think of yourself as: straight/heterosexual Gender Identity: female Meds Home Medications and Allergies Home Medications Medication Instructions Recorded Confirmed Type aspirin 81 mg tablet,delayed 81 mg PO DAILY 01/09/23 05/20/23 History release (Adult Aspirin Regimen) bumetanide 1 mg tablet 1 mg PO BID 01/09/23 05/20/23 History ferrous sulfate 325 mg (65 mg 650 mg PO DAILY 01/09/23 05/20/23 History iron) tablet (Feosol) gabapentin 100 mg capsule 200 mg PO BID 01/09/23 05/20/23 History insulin degludec 100 unit/mL (3 8 unit subcut QPM 01/09/23 05/20/23 History mL) subcutaneous pen (Tresiba FlexTouch U-100 insulin) insulin lispro 100 unit/mL 1 sliding scale dose subcut TIDWM 01/09/23 05/20/23 History subcutaneous cartridge (Humalog U-100 Insulin) metoprolol tartrate 25 mg tablet 12.5 mg PO BID 01/09/23 05/20/23 History pantoprazole 40 mg tablet,delayed 40 mg PO DAILY 01/09/23 05/20/23 History release sertraline 100 mg tablet 100 mg PO DAILY 01/09/23 05/20/23 History simvastatin 40 mg tablet 40 mg PO .qhs 01/09/23 05/20/23 History warfarin 1 mg tablet 3 mg PO DAILY 01/09/23 05/20/23 History acetaminophen 325 mg tablet 1,000 mg PO BID 05/20/23 05/20/23 History (Tylenol) cholecalciferol (vitamin D3) 25 25 mcg PO DAILY 05/20/23 05/20/23 History mcg (1,000 unit) tablet Allergies Allergy/AdvReac Type Severity Reaction Status Date / Time No Known Drug Allergies Allergy Verified 01/07/23 14:19 Exam Constitutional Vital Signs, click to edit/add: Last Vital Signs Temp 97.4 F L 05/20/23 15:48 Pulse 95 H 05/20/23 15:48 Resp 18 05/20/23 15:48 BP 120/76 05/20/23 15:48 Pulse Ox 95 05/20/23 15:48 O2 Del Method Room Air 05/20/23 15:48 Common normals: no apparent distress, oriented x3, alert and well nourished General appearance: cooperative Orientation/consciousness: Yes awake HENMS Common normals: normocephalic, head/scalp atraumatic, hearing grossly normal bilaterally, external nose normal and moist oral mucous membranes Mouth: oral and palatal mucosa abnormal; tongue not normal (Dry, fissured) Eye Common normals: EOMs intact bilaterally, conjunctivae normal and no scleral icterus Alignment: alignment normal Neck & C-Spine Common normals: full ROM, supple and no JVD Chest Common normals: inspection of chest normal Chest: symmetrical chest wall rise Respiratory Common normals: normal respiratory effort, no retractions, no use of accessory muscles and clear to auscultation bilaterally Effort & inspection: able to speak in complete sentences Cardio Common normals: no JVD, regular rate, regular rhythm, S1 normal heart sound, S2 normal heart sound, no gallops, no clicks, no murmurs, no rub and peripheral pulses 2+ throughout GI Common normals: Normal to inspection, nondistended, normoactive bowel sounds present, soft to palpation, non-tender, no hepatosplenomegaly, no masses and no bruits Bladder/kidney exam: bladder normal to palpation Back & Pelvis Common normals: thoracic and lumbar spine normal to inspection Extremity Common normals: normal capillary refill and no pedal edema General: normal exam except as noted; no clubbing and no cyanosis Other: Dry skin. Scattered ecchymosis Neuro Lencho Coma Scale: GCS not evaluated Common normals: CN's II-XII intact bilaterally, moves all extremities, no focal motor deficits and no sensory deficits noted Speech: speech normal Psych Common normals: mental status grossly normal, thought process normal, affect normal and activity/motor behavior normal Results Labs Labs: Short CBC 05/20/23 Range/Units 13:00 WBC 8.4 (4.0-11.0) 10^3/uL Hgb 10.9 L (12.0-16.0) g/dL Hct 34.5 L (36.0-48.0) % Plt Count 472 H (150-450) 10^3/uL BMP 05/20/23 13:00 Sodium 135 L Potassium 3.8 Chloride 101 Carbon Dioxide 22.2 BUN 110.0 H* Creatinine 2.34 H Glucose 188 H Calcium 9.8 Liver Function 05/20/23 Range/Units 13:00 Total Bilirubin 0.3 (0.2-1.0) mg/dL Direct Bilirubin 0.1 (0.0-0.2) mg/dL AST 18 (15-37) U/L ALT 22 (14-59) U/L Alkaline Phosphatase 183 H (46-116) U/L Albumin 2.1 L (3.4-5.0) g/dL Urine 05/20/23 Range/Units 13:25 Urine Color Yellow (YELLOW) Urine Clarity Turbid A (CLEAR) Urine pH 6.0 (5.0-9.0) Ur Specific Register 1.020 (1.005-1.025) Urine Protein 100 A (NEG/TRACE) mg/dL Urine Glucose (UA) Negative (NEGATIVE) mg/dL Pulse Oximetry Attestation: I have reviewed the pertinent pulse oximetry results. ECG Interpretation: Sinus rhythm Right bundle branch block Anteroseptal myocardial infarction, age undetermined Abnormal right axis deviation Abnormal ECG Compared to ECG from 02/16/2023 at 1453 Right bundle branch block now present Myocardial infarct finding now present Intraventricular conduction delay no longer present Assessment and Plan Assessment and Plan (1) Acute kidney injury: Assessment and Plan: ACUTE * Adm observation * Suspect 2/2 dehydration/overdiuresis in setting of concurrent UTI * w/ pre-renal azotemia. BUN/Cr ratio of 47 * NS IVF for gentle hydration at 75 ml/hr. * Avoid aggressive rehydration as the pt's most recent admission in Feb 2023 was for diastolic CHF exacerbation * Hold home bumex for now d/t renal toxicity/dehydration * Consider reduced dosing at discharge * CBC, CMP daily (2) Dehydration: Assessment and Plan: ACUTE * w/ mild hyponatremia * 2/2 to overdiuresis * The pt's PCP must also suspect this as she recently decreased her Bumex dosing from 1mg BID to 1mg Daily (~1 week ago) * Gentle IVFs as above * Repeat CMP daily (3) Urinary tract infection: Assessment and Plan: ACUTE * UA pos in ED. * Ur Cx pending * BC X 2 pending - no clinical concern for sepsis at this time w/ stable BP, normal mentation, no leukocytosis, afebrile * IVPB Rocephin daily pending culture results (4) Hypothyroid: Assessment and Plan: CHRONIC * Pt discharged on levothyroxine from her last hospitalization as a new diagnosis * Levothyroxine was not continued at the SNF after discharge - unclear why * Check TSH w/ reflex T4 in AM for therapeutic monitoring (5) CAD (coronary artery disease): Assessment and Plan: CHRONIC * Continue home daily ASA, BB, and statin (6) A-fib: Assessment and Plan: CHRONIC * Currently rate controlled * Continue home metoprolol for rate control * Continue home warfarin for CVA prevention * INR 2.8 in ED, within therapeutic range goal of 2.0-3.0 * Continue most recent warfarin dosing order of 3mg daily * Check INR daily (7) Heart failure: Assessment and Plan: CHRONIC * HFpEF - Preserved EF of 55-60% on 02/17/23 2D Echo * Hold home Bumex for now d/t dehydration/GATO * Likely resume at reduced dosing at discharge * Admitted Feb 2023 for acute diastolic CHF exacerbation * Obtain daily weights and strict I&O (8) CKD (chronic kidney disease) stage 4, GFR 15-29 ml/min: Assessment and Plan: CHRONIC * Baseline CKD 3b/4 * Cr 1.38-2.12 * GFR 22-37 (9) Type 2 diabetes mellitus with hyperglycemia: Assessment and Plan: CHRONIC * Continue home Tresiba or pharmacy formulary substitution * ACHS glucometer checks * CC med diet * Med SSI for glucose correction (10) Anemia in chronic kidney disease: Assessment and Plan: CHRONIC * Stable at baseline (11) DM neuropathies: Assessment and Plan: CHRONIC * Continue home gabapentin (12) Depression: Assessment and Plan: CHRONIC * Continue home sertraline Urinary Catheter Management Urinary Catheter Management Straight: Cath placed during this visit: yes Urethral indwelling: No Insertion date: 05/20/23 Insertion time: 13:32
[2023-05-20] MEDS: WARFARIN SODIUM 3 MG TABLET PO (18:25)
[2023-05-20 20:24] LABS: Glucometer 156 mg/dL (74-106)
[2023-05-20] MEDS: METOPROLOL TARTRATE 25 MG TABLET 12.5 MG PO (21:51)
[2023-05-20] MEDS: GABAPENTIN 100 MG CAPSULE 200 MG PO (21:51)
[2023-05-20] MEDS: AMMONIUM LACTATE 226 GM BOTTLE 1 APPLIC TOPICAL (21:59)
[2023-05-20] MEDS: ACETAMINOPHEN 325 MG TABLET 1000 MG PO (21:59)
[2023-05-20] MEDS: ATORVASTATIN CALCIUM 20 MG TABLET PO (22:02)
[2023-05-21] VITALS (13 sets, daily range): BP systolic 71–117; BP diastolic 44–75; PULSE 78–98; RESP 16–20; TEMP 36.2–37.1; O2SAT 91–97
[2023-05-21 05:05] LABS: Basophils Absolute Auto 0.1 10^3/uL (0.0-0.1); Basophils Percent Auto 0.5 % (0.2-2.0); Eosinophils Absolute Auto 0.2 10^3/uL (0.0-0.7); Eosinophils Percent Auto 1.9 % (0.9-7.0); Hematocrit 31.8 % (36.0-48.0); Hemoglobin 9.9 g/dL (12.0-16.0); Immature Granulocytes Abs Auto 0.04 10^3/uL (0.00-0.03); Immature Granulocytes Pct Auto 0.4 % (0.0-0.5); Lymphocytes Absolute Auto 0.9 10^3/uL (1.2-3.8); Lymphocytes Percent Auto 9.5 % (20.5-60.0); Mean Corpuscular HGB Conc 31.1 g/dL (29.9-35.2); Mean Corpuscular Hemoglobin 29.1 pg (26.7-34.0); Mean Corpuscular Volume 93.5 fL (81.0-99.0); Mean Platelet Volume 9.6 fL (9.5-13.5); Monocytes Percent Auto 11.1 % (1.7-12.0); Neutrophils Percent Auto 76.6 % (43.0-75.0); Platelet Count 453 10^3/uL (150-450); Red Cell Distribution Width 18.9 % (11.0-15.0); White Blood Count 9.1 10^3/uL (4.0-11.0)
[2023-05-21 05:14] LABS: INR 3.42; Prothrombin Time 33.8 sec (9.0-11.6)
[2023-05-21 05:45] LABS: Alanine Aminotransferase 20 U/L (14-59); Albumin Globulin Ratio 0.4; Albumin Level 1.8 g/dL (3.4-5.0); Alkaline Phosphatase 153 U/L (46-116); Anion Gap 14.4; Aspartate Amino Transferase 16 U/L (15-37); Bilirubin Total 0.3 mg/dL (0.2-1.0); Calcium 9.3 mg/dL (8.5-10.1); Carbon Dioxide 22.4 mmol/L (21.0-32.0); Chloride 108 mmol/L (98-107); Estimated GFR (African America 30 (>=60); Estimated GFR (Non-African Ame 25 (>=60); Globulin 4.4 g/dL; Glucose 73 mg/dL (74-106); Potassium 3.8 mmol/L (3.5-5.1); Sodium 141 mmol/L (136-145); Total Protein 6.2 g/dL (6.4-8.2)
[2023-05-21 05:50] LABS: TSH W/ REFLEX FT4 4.036 uIU/mL (0.358-3.740)
[2023-05-21 06:17] LABS: Free T4 0.91 ng/dL (0.76-1.46)
[2023-05-21] MEDS: OMEPRAZOLE 40 MG CAPSULE.DR PO (07:13)
--- OUTSIDE RECORDS SUMMARY | 2023-05-21 08:51 | XMS_ITS | CCD ---
Author Name Unknown Address [address] [place] [address] Organization [facility] Care Team Providers Care Video Games Mechanic Name Role Phone STANFORD SINGH Unavailable Unavailable SELF, REFERRED Unavailable Unavailable SELF, REFERRED Unavailable Unavailable [place] Unavailable Unavailable STEPHEN, FELIPE R Unavailable Unavailable [...] Theresa Valles MD Primary Care Provider [phone] Nawaf CRUZN.CONTROL VALVE MECHANIC, Sharon Unavailable [phone] Micaela Prince Unavailable Theresa Valles MD Primary Care Provider [phone] Nawaf WAGNER.CONTROL VALVE MECHANIC, Sharon Unavailable Theresa Valles MD Primary Care Provider [phone] Theresa Valles MD Primary Care Provider Theresa Valles MD Unavailable THERESA VALLES Attending Unavailable Theresa Valles MD [...] Drug Allergy 1 Other: See Comments, Other [facility] Work Phone: (2 sources) Amoxicillin / Clavulanate Drug Allergy Unknown [employer] Other (7 sources) Potassium Chloride Drug Allergy Unknown [facility] [employer] Other (7 sources) Darvocet-N 100 Drug allergy Unknown [facility] [employer] Other (5 sources) Amoxicillin / Clavulanate Drug Allergy Unknown [employer] Other (2 sources) Potassium Chloride Drug Allergy 2 Other [facility] (2 sources) Propoxyphene Drug Allergy 2 Hives [facility] (2 sources) Amoxicillin-Pot Clavulanate Drug Allergy 2 GI intolerance [facility] (1 source) Acetaminophen Drug Allergy 3 [facility] (1 source) Amoxicillin Drug Allergy 3 [facility] (1 source) Clavulanate Drug Allergy 3 [facility] (1 source) Potassium Chloride Drug Allergy 3 [facility] (1 source) Propoxyphene Drug Allergy 3 [facility] Medications Current Medications Medication Drug Class(es) [...] the morning. 0 Active Continuous Blood Gluc Workgroup Leader (FreeStyle Tania 2 [place]) device (2 sources) Start: 023 Continuous Blood Gluc Workgroup Leader (FreeStyle Tania 2 [place]) device USE DIRECTED FOR 365 0 05/22/2022 Active Continuous Blood Gluc Sensor (FreeStyle Tania 2 Sensor) misc (2 sources) Start: 023 Continuous Blood Gluc Sensor (FreeStyle Tania 2 Sensor) misc 1 Units every 14 (fourteen) days. 0 12/23/2022 Active ergocalciferol 1.25 mg oral capsule (2 sources) Provitamin D2 Compound take 1 capsule by mouth every week ergocalciferol (Vitamin D-2) 1.25 MG (78749 UT) capsule Take 50,000 Units by mouth [...] by mouth once daily. FreeStyle Tania 2 [place] - (7 sources) Start: 04-23-2022 FreeStyle Tania 2 [place] - as directed in vitro 5 x day for 365 days Z79.4 Apr, Active FreeStyle Tania 2 [place] - as directed in vitro 5 x [...] Multi Complete - as directed Orally Active vpeekoxw-liof-SF-calcium &mins (THERAGRAN-M) 9 mg iron-400 mcg tablet (1 source) ehztecrd-corq-YE -calcium &mins (THERAGRAN-M) 9 mg iron-400 mcg [...] Coronary atherosclerosis; Translations: [Atherosclerotic heart disease of [place] coronary artery without angina pectoris] Onset: 07-31-2020 [...] Onset: 06-04-2017 Chronic Other aftercare (3 sources) 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; Translations: [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 OF INSULIN] Onset: 04-22-2017 Episodic Other aftercare (2 sources) prison (current) use of anticoagulants; Translations: [GROUP HOME CURRNT USE ANTICOAGULANTS] Onset: 09-18-2020 Episodic Other [...] 04-18-2021 09-10-2022 Episodic Other aftercare (1 source) prison (current) use of aspirin; Translations: [GROUP HOME CURRENT USE OF ASPIRIN] Onset: 09-18-2020 Episodic Other aftercare (9 sources) Long-term current use of insulin; Translations: [prison (current) use of insulin] Onset: 07-06-2017 08-28-2022 Episodic Other aftercare (2 sources) Long-term current use of anticoagulant; Translations: [watermaster (current) use of anticoagulants] Onset: 08-29-2022 08-29-2022 [...] 2.6 g/dL Low 3.2 - 5.3 g/dL [facility] Comment on above: PERFORMED AT [facility] [address] [place] [address] Albumin [Mass/Vol]on 024 ALBUMIN REQUEST CREDITED Normal 3.2-5.3 [facility] Comment on above: Result Comment: ORDERED A CMP Corrected on 05/13 AT 1808: Previously reported as 2.6 Performed By: #### P INR #### [facility] ([id number]) [address] [place] [address] 25517 CBC AND AUTO DIFFon 05-13-19 24 ABSOLUTE BASOPHIL 0.1 X10E9/L Normal 0.0-0.2 [facility] Comment on above: Performed By: #### PINR #### [facility] ([id number]) [address] [place] [address] 11024 ABSOLUTE NEUTROPHIL 7.5 X10E9/L High 1.5-6.6 [facility] Comment on above: Performed By: #### PINR #### [facility] ([id number]) [address] [place] [address] 28102 Basophils/100 WBC (Bld) 0.7 % Normal [facility] Comment on above: Performed By: #### PINR #### [facility] ([id number]) [address] [place] [address] 17270 Eosinophils (Bld) [#/Vol] 0.2 10*3/uL Normal 0.0-0.4 [facility] Comment on above: Performed By: #### PINR #### [facility] ([id number]) [address] [place] [address] 87657 Eosinophils/100 WBC (Bld) 1.7 % Normal [facility] Comment on above: Performed By: #### PINR #### [facility] ([id number]) [address] [place] [address] 67714 Erythrocyte distribution width (RBC) [Ratio] 17.8 % High 11.5-15.0 [facility] Comment on above: Performed By: #### PINR #### [facility] ([id number]) [address] [place] [address] 38338 Hematocrit (Bld) [Volume fraction] 34.1 % Low 35-47 [facility] Comment on above: Performed By: #### PINR #### [facility] ([id number]) [address] [place] [address] 91071 Hemoglobin (Bld) [Mass/Vol] 11.0 g/dL Low 11.7-15.5 [facility] Comment on above: Performed By: #### PINR #### [facility] ([id number]) [address] [place] [address] 47229 Lymphocytes (Bld) [#/Vol] 0.7 10*3/uL Low 1.0-3.5 [facility] Comment on above: Performed By: #### PINR #### [facility] ([id number]) [address] [place] [address] 27936 Lymphocytes/100 WBC (Bld) 7.3 % Normal [facility] Comment on above: Performed By: #### PINR #### [facility] ([id number]) [address] [place] [address] 97785 MCH (RBC) [Entitic mass] 28.7 pg Normal 27-34 [facility] Comment on above: Performed By: #### PINR #### [facility] ([id number]) [address] [place] [address] 35879 MCHC (RBC) [Mass/Vol] 32.4 g/dL Normal 32-36 [facility] Comment on above: Performed By: #### PINR #### [facility] ([id number]) [address] [place] [address] 91641 MCV (RBC) [Entitic vol] 89 fL Normal 80-100 [facility] Comment on above: Performed By: #### PINR #### [facility] ([id number]) [address] [place] [address] 25436 Monocytes (Bld) [#/Vol] 0.7 10*3/uL Normal 0-0.9 [facility] Comment on above: Performed By: #### PINR #### [facility] ([id number]) [address] [place] [address] 88959 Monocytes/100 WBC (Bld) 7.3 % Normal [facility] Comment on above: Performed By: #### PINR #### [facility] ([id number]) [address] [place] [address] 07089 Neutrophils/100 WBC (Bld) 83.0 % Normal [facility] Comment on above: Performed By: #### PINR #### [facility] ([id number]) [address] [place] [address] 12800 Platelet mean volume (Bld) [Entitic vol] 8.4 fL Normal 7-12 [facility] Comment on above: Performed By: #### PINR #### [facility] ([id number]) [address] [place] [address] 92375 Platelets (Bld) [#/Vol] 424 10*3/uL Normal 150-450 [facility] Comment on above: Performed By: #### PINR #### [facility] ([id number]) [address] [place] [address] 85244 RBC COUNT 3.85 X10E12/L Normal 3.80-5.20 [facility] Comment on above: Performed By: #### PINR #### [facility] ([id number]) [address] [facility], [place] [address] WBC (Bld) [#/Vol] 9.0 10*3/uL Normal 4.0-11.0 [facility] Comment on above: Performed By: #### PINR #### [facility] ([id number]) [address] [facility], [place] [address] CBC W Auto Differential pane l (Bld)on 05-13-2023 ABSOLUTE BASOPHIL 0.1 [facility] Comment on above: PERFORMED AT [facility] [address] [facility] [place] [address] Basophils/100 WBC (Bld) 0.7 % [facility] [...] [facility] RBC (Bld) [#/Vol] 3.85 10*6/uL [facility] WBC corrected for nucl RBC Auto (Bld) [#/Vol] 9.0 [facility] COMPREHENSIVE METABOLIC PANE Manolo 05-13-2023 Albumin [Mass/Vol] 2.8 g/dL Low 3.2-5.3 [facility] Comment on above: Performed By: #### PINR, CBCA, BMP, 3093 4-4 #### [facility] ([id number]) [address] [place] [address] 18882 ALP [Catalytic activity/Vol] 153 U/L High 39-130 [facility] Comment on above: Performed By: #### PINR, CBCA, BMP, 3093 4- #### [facility] ([id number]) [address] [place] [address] 02242 ALT [Catalytic activity/Vol] 19 U/L Normal 0-31 [facility] Comment on above: Performed By: #### PINR, CBCA, BMP, 3093 4-4 #### [facility] ([id number]) [address] [place] [address] 29683 Anion gap [Moles/Vol] 11 mmol/L Normal 5-15 [facility] Comment on above: Performed By: #### PINR, CBCA, BMP, 3093 4- #### [facility] ([id number]) [address] [place] [address] 98261 AST [Catalytic activity/Vol] 25 U/L Normal 0-41 [facility] Comment on above: Performed By: #### PINR, CBCA, BMP, 3093 4- #### [facility] ([id number]) [address] [place] [address] 35606 Bilirubin [Mass/Vol] 0.3 mg/dL Normal 0.3-1.2 [facility] Comment on above: Performed By: #### PINR, CBCA, BMP, 3093 4- #### [facility] ([id number]) [address] [place] [address] 54340 Calcium [Mass/Vol] 9.0 mg/dL Normal 8.5-10.5 [facility] Comment on above: Performed By: #### PINR, CBCA, BMP, 3093 4-4 #### [facility] ([id number]) [address] [place] [address] 59932 Chloride [Moles/Vol] 103 mmol/L Normal 98-109 [facility] Comment on above: Performed By: #### PINR, CBCA, BMP, 3093 4-4 #### [facility] ([id number]) [address] [place] [address] 10707 CO2 [Moles/Vol] 23 mmol/L Normal 22-32 [facility] Comment on above: Performed By: #### PINR, CBCA, BMP, 3093 4-4 #### [facility] ([id number]) [address] [place] [address] 67872 Creatinine [Mass/Vol] 2.07 mg/dL High 0.40-1.00 [facility] Comment on above: Result Comment: METHOD TRACEABLE TO IDMS STANDARD Performed By: #### P INR, CBCA, BMP, 80714-3 #### [facility] ([id number]) [address] [place] [address] 65487 GFR/1.73 sq M.predicted among non-blacks MDRD (S/P/Bld) [Vol rate/Area] 24 mL/min/{1.73_m2} Low >59 [facility] Comment on above: Result Comment: Reported eGFR is based on the CKD-EPI 2020 equation that does not use a race coefficient. Performed By: #### P INR, CBCA, BMP, 64788-8 #### [facility] ([id number]) [address] [place] [address] 88113 Glucose [Mass/Vol] 204 mg/dL High 65-99 [facility] Comment on above: Performed By: #### PINR, CBCA, BMP, 3093 4- #### [facility] ([id number]) [address] [place] [address] 79059 Potassium [Moles/Vol] 4.5 mmol/L Normal 3.5-5.0 [facility] Comment on above: Performed By: #### PINR, CBCA, BMP, 3093 4-4 #### [facility] ([id number]) [address] [place] [address] 06743 Protein [Mass/Vol] 6.1 g/dL Normal 6.0-8.0 [facility] Comment on above: Performed By: #### PINR, CBCA, BMP, 3092 4- #### [facility] ([id number]) [address] [place] [address] 86745 Sodium [Moles/Vol] 137 mmol/L Normal 134-146 [facility] Comment on above: Performed By: #### PINR, CBCA, BMP, 3093 - #### [facility] ([id number]) [address] [place] [address] 12022 Urea nitrogen [Mass/Vol] 91 mg/dL High 5-27 [facility] Comment on above: Performed By: #### PINR, CBCA, BMP, 3093 4-4 #### [facility] ([id number]) [address] [place] [address] 79101 No Panel Informationon 05-13 Interpretation and review of laboratory results Abnormal [facility] PROTIME AND INRon 05-13-2023 INR Coag (PPP) [Relative time] 2.2 {INR} High 0.8-1.1 [facility] Comment on above: Performed By: #### PINR #### [facility] ([id number]) [address] [place] [address] 89077 PT Coag (PPP) [Time] 25.3 s High 9.8-13.2 [facility] Comment on above: Result Comment: NEW REFERENCE RANGE Performed By: #### P INR #### [facility] ([id number]) [address] [place] [address] 49722 T3 [Mass/Vol]on 05-13-2023 TOTAL T3 (TT3) 22 ng/dL Low 87-178 [facility] Comment on above: Performed By: #### PINR, CBCA, BMP, 3093 4-4 #### [facility] ([id number]) [address] [place] [address] 51190 THYROID PROFILEon 05-13-2023 Free T4 [Mass/Vol] 1.14 ng/dL Normal 0.61-1.60 [facility] Comment on above: Performed By: #### PINR #### [facility] ([id number]) [address] [place] [address] 51759 TSH 5.80 uIU/mL High 0.49-4.67 [facility] Comment on above: Performed By: #### PINR #### [facility] ([id number]) [address] [place] [address] 15518 Urea nitrogen [Mass/Vol]on 0 05-13-2023 BLOOD UREA NITROGEN REQUEST CREDITED Normal 5-27 [facility] Comment on above: Result Comment: ORDERED A CMP Corrected on 05/13 AT 1808: Previously reported as 95 Performed By: #### P INR #### [facility] ([id number]) [address] [place] [address] 74623 CBC AND AUTO DIFFon 04-28-19 24 ABSOLUTE BASOPHIL 0.1 X10E9/L Normal 0.0-0.2 [facility] Comment on above: Performed By: #### PINR #### [facility] ([id number]) [address] [place] [address] 62510 ABSOLUTE NEUTROPHIL 2.8 X10E9/L Normal 1.5-6.6 [facility] Comment on above: Performed By: #### PINR #### [facility] ([id number]) [address] [place] [address] 54830 Basophils/100 WBC (Bld) 1.2 % Normal [facility] Comment on above: Performed By: #### PINR #### [facility] ([id number]) [address] [place] [address] 04055 Eosinophils (Bld) [#/Vol] 0.3 10*3/uL Normal 0.0-0.4 [facility] Comment on above: Performed By: #### PINR #### [facility] ([id number]) [address] [place] [address] 60512 Eosinophils/100 WBC (Bld) 5.4 % Normal [facility] Comment on above: Performed By: #### PINR #### [facility] ([id number]) [address] [place] [address] 61271 Erythrocyte distribution width (RBC) [Ratio] 17.2 % High 11.5-15.0 [facility] Comment on above: Performed By: #### PINR #### [facility] ([id number]) [address] [place] [address] 81024 Hematocrit (Bld) [Volume fraction] 30.3 % Low 35-47 [facility] Comment on above: Performed By: #### PINR #### [facility] ([id number]) [address] [place] [address] 93964 Hemoglobin (Bld) [Mass/Vol] 9.9 g/dL Low 11.7-15.5 [facility] Comment on above: Performed By: #### PINR #### [facility] ([id number]) [address] [place] [address] 10931 Lymphocytes (Bld) [#/Vol] 0.7 10*3/uL Low 1.0-3.5 [facility] Comment on above: Performed By: #### PINR #### [facility] ([id number]) [address] [place] [address] 50599 Lymphocytes/100 WBC (Bld) 14.1 % Normal [facility] Comment on above: Performed By: #### PINR #### [facility] ([id number]) [address] [place] [address] 06906 MCH (RBC) [Entitic mass] 29.0 pg Normal 27-34 [facility] Comment on above: Performed By: #### PINR #### [facility] ([id number]) [address] [place] [address] 41986 MCHC (RBC) [Mass/Vol] 32.6 g/dL Normal 32-36 [facility] Comment on above: Performed By: #### PINR #### [facility] ([id number]) [address] [place] [address] 50664 MCV (RBC) [Entitic vol] 89 fL Normal 80-100 [facility] Comment on above: Performed By: #### PINR #### [facility] ([id number]) [address] [place] [address] 42475 Monocytes (Bld) [#/Vol] 0.9 10*3/uL Normal 0-0.9 [facility] Comment on above: Performed By: #### PINR #### [facility] ([id number]) [address] [place] [address] 93315 Monocytes/100 WBC (Bld) 19.1 % Normal [facility] Comment on above: Performed By: #### PINR #### [facility] ([id number]) [address] [place] [address] 40578 Neutrophils/100 WBC (Bld) 60.2 % Normal [facility] Comment on above: Performed By: #### PINR #### [facility] ([id number]) [address] [place] [address] 99175 Platelet mean volume (Bld) [Entitic vol] 8.6 fL Normal 7-12 [facility] Comment on above: Performed By: #### PINR #### [facility] ([id number]) [address] [place] [address] 29371 Platelets (Bld) [#/Vol] 335 10*3/uL Normal 150-450 [facility] Comment on above: Performed By: #### PINR #### [facility] ([id number]) [address] [place] [address] 35704 RBC COUNT 3.40 X10E12/L Low 3.80-5.20 [facility] Comment on above: Performed By: #### PINR #### [facility] ([id number]) [address] [place] [address] 82272 WBC (Bld) [#/Vol] 4.7 10*3/uL Normal 4.0-11.0 [facility] Comment on above: Performed By: #### PINR #### [facility] ([id number]) [address] [place] [address] 72201 COMPREHENSIVE METABOLIC PANE Manolo 04-28-2023 Albumin [Mass/Vol] 2.3 g/dL Low 3.2-5.3 [facility] Comment on above: Performed By: #### PINR #### [facility] ([id number]) [address] [place] [address] 78786 ALP [Catalytic activity/Vol] 120 U/L Normal 39-130 [facility] Comment on above: Performed By: #### PINR #### [facility] ([id number]) [address] [place] [address] [place] [address] ALT [Catalytic activity/Vol] 13 U/L Normal 0-31 [facility] Comment on above: Performed By: #### PINR #### [facility] ([id number]) [address] [place] [address], [place] [address] Anion gap [Moles/Vol] 8 mmol/L Normal 5-15 [facility] Comment on above: Performed By: #### PINR #### [facility] ([id number]) [address] [place] [address], [place] [address] AST [Catalytic activity/Vol] 14 U/L Normal 0-41 [facility] Comment on above: Performed By: #### PINR #### [facility] ([id number]) [address] [place] [address], [place] [address] Bilirubin [Mass/Vol] 0.3 mg/dL Normal 0.3-1.2 [facility] Comment on above: Performed By: #### PINR #### [facility] ([id number]) [address] [place] [address], [place] [address] Calcium [Mass/Vol] 9.2 mg/dL Normal 8.5-10.5 [facility] Comment on above: Performed By: #### PINR #### [facility] ([id number]) [address] [place] [address], [place] [address] Chloride [Moles/Vol] 110 mmol/L High 98-109 [facility] Comment on above: Performed By: #### PINR #### [facility] ([id number]) [address] [place] [address], [place] [address] CO2 [Moles/Vol] 19 mmol/L Low 22-32 [facility] Comment on above: Performed By: #### PINR #### [facility] ([id number]) [address] [place] [address] 86672 Creatinine [Mass/Vol] 1.75 mg/dL High 0.40-1.00 [facility] Comment on above: Result Comment: METHOD TRACEABLE TO IDMS STANDARD Performed By: #### P INR #### [facility] ([id number]) [address] [place] [address] 75735 GFR/1.73 sq M.predicted among non-blacks MDRD (S/P/Bld) [Vol rate/Area] 29 mL/min/{1.73_m2} Low >59 [facility] Comment on above: Result Comment: Reported eGFR is based on the CKD-EPI 2020 equation that does not use a race coefficient. Performed By: #### P INR #### [facility] ([id number]) [address] [place] [address] 26585 Glucose [Mass/Vol] 264 mg/dL High 65-99 [facility] Comment on above: Performed By: #### PINR #### [facility] ([id number]) [address] [place] [address] 11020 Potassium [Moles/Vol] 4.9 mmol/L Normal 3.5-5.0 [facility] Comment on above: Performed By: #### PINR #### [facility] ([id number]) [address] [place] [address] 64769 Protein [Mass/Vol] 5.7 g/dL Low 6.0-8.0 [facility] Comment on above: Performed By: #### PINR #### [facility] ([id number]) [address] [place] [address] 03349 Sodium [Moles/Vol] 137 mmol/L Normal 134-146 [facility] Comment on above: Performed By: #### PINR #### [facility] ([id number]) [address] [place] [address] Urea nitrogen [Mass/Vol] 55 mg/dL High 5-27 [facility] Comment on above: Performed By: #### PINR #### [facility] ([id number]) [address] [place] [address] 29203 Natriuretic peptide B [Mass/ Vol]on 04-28-2023 Natriuretic peptide B (Bld) [Mass/Vol] 879 pg/mL High <100.0 [facility] Comment on above: Performed By: #### PINR #### [facility] ([id number]) [address] [place] [address] 96867 PROTIME AND INRon 04-28-2023 INR Coag (PPP) [Relative time] 4.3 {INR} Critically high 0.8-1.1 [facility] Comment on above: Performed By: #### PINR #### [facility] ([id number]) [address] [place] [id number] PT Coag (PPP) [Time] 47.9 s High 9.8-13.2 [facility] Comment on above: Result Comment: NEW REFERENCE RANGE Performed By: #### P INR #### [facility] ([id number]) [address] [place] [address] [id number] PROTIME AND INRon 04-27-2023 INR Coag (PPP) [Relative time] 4.7 {INR} Critically high 0.8-1.1 [facility] Comment on above: Performed By: #### PINR #### [facility] ([id number]) [address] [place] [address] [id number] PT Coag (PPP) [Time] 51.5 s High 9.8-13.2 [facility] [facility] Comment on above: Result Comment: NEW REFERENCE RANGE Performed By: #### P INR #### [facility] ([id number]) [address] [place] [address] 89737 PROTIME AND INRon 04-20-2023 INR Coag (PPP) [Relative time] 2.8 {INR} High 0.8-1.1 [facility] Comment on above: Performed By: #### PINR #### [facility] ([id number]) [address] [place] [address] 51114 PT Coag (PPP) [Time] 31.0 s High 9.8-13.2 [facility] Comment on above: Result Comment: NEW REFERENCE RANGE Performed By: #### P INR #### [facility] ([id number]) [address] [place] [address], [place] [address] PROTIME AND INRon 04-13-2023 INR Coag (PPP) [Relative time] 2.4 {INR} High 0.8-1.1 [facility] Comment on above: Performed By: #### PINR #### [facility] ([id number]) [address] [place] [address] [place] [address] PT Coag (PPP) [Time] 27.4 s High 9.8-13.2 [facility] Comment on above: Result Comment: NEW REFERENCE RANGE Performed By: #### P INR #### [facility] ([id number]) [address] [place] [address] 93050 PROTIME AND INRon 04-08-2023 INR Coag (PPP) [Relative time] 4.0 {INR} High 0.8-1.1 [facility] Comment on above: Performed By: #### PINR #### [facility] ([id number]) [address] [place] [address] 24667 PT Coag (PPP) [Time] 44.5 s High 9.8-13.2 [facility] Comment on above: Result Comment: NEW REFERENCE RANGE Performed By: #### P INR #### [facility] ([id number]) [address] [place] [address] PROTIME AND INRon 04-07-2023 INR Coag (PPP) [Relative time] 4.1 {INR} Critically high 0.8-1.1 [facility] Comment on above: Performed By: #### PINR #### [facility] ([id number]) [address] [place] [address] 69942 PT Coag (PPP) [Time] 45.4 s High 9.8-13.2 [facility] Comment on above: Result Comment: NEW REFERENCE RANGE Performed By: #### P INR #### [facility] ([id number]) [address] [place] [address] 80699 BASIC METABOLIC PANLon 03-31 Anion gap [Moles/Vol] 9 mmol/L Normal 5-15 [facility] Comment on above: Performed By: #### PINR, CBCA, BMP, 3093 4-4 #### [facility] ([id number]) [address] [place] [address] 64698 Calcium [Mass/Vol] 9.0 mg/dL Normal 8.5-10.5 [facility] Comment on above: Performed By: #### PINR, CBCA, BMP, 3093 4-4 #### [facility] ([id number]) [address] [place] [address] 33262 Chloride [Moles/Vol] 108 mmol/L Normal 98-109 [facility] Comment on above: Performed By: #### PINR, CBCA, BMP, 3093 4-4 #### [facility] ([id number]) [address] [place] [address] 31961 CO2 [Moles/Vol] 20 mmol/L Low 22-32 [facility] Comment on above: Performed By: #### PINR, CBCA, BMP, 3093 4-4 #### [facility] ([id number]) [address] [place] [address] 10944 Creatinine [Mass/Vol] 1.60 mg/dL High 0.40-1.00 [facility] Comment on above: Result Comment: METHOD TRACEABLE TO IDMS STANDARD Performed By: #### P INR, CBCA, BMP, 47735-0 #### [facility] ([id number]) [address] [place] [address] 06319 GFR/1.73 sq M.predicted among non-blacks MDRD (S/P/Bld) [Vol rate/Area] 33 mL/min/{1.73_m2} Low >59 [facility] Comment on above: Result Comment: Reported eGFR is based on the CKD-EPI 2020 equation that does not use a race coefficient. Performed By: #### P INR, CBCA, BMP, 23451-1 #### [facility] ([id number]) [address] [place] [address] 57152 Glucose [Mass/Vol] 185 mg/dL High 65-99 [facility] Comment on above: Performed By: #### PINR, CBCA, BMP, 3093 4-4 #### [facility] ([id number]) [address] [place] [address] 08024 Potassium [Moles/Vol] 4.3 mmol/L Normal 3.5-5.0 [facility] Comment on above: Performed By: #### PINR, CBCA, BMP, 3093 4-4 #### [facility] ([id number]) [address] [place] [address] 33349 Sodium [Moles/Vol] 137 mmol/L Normal 134-146 [facility] Comment on above: Performed By: #### PINR, CBCA, BMP, 3093 4-4 #### [facility] ([id number]) [address] [place] [address] 63127 Urea nitrogen [Mass/Vol] 45 mg/dL High 5-27 [facility] Comment on above: Performed By: #### PINR, CBCA, BMP, 07-08 #### [facility] ([id number]) [address] [place] [address] 38369 CBC AND AUTO DIFFon 03-31-20 23 Eosinophils (Bld) [#/Vol] 0.1 10*3/uL Normal 0.0-0.4 [facility] Comment on above: Performed By: #### PINR, CBCA, BMP, 07-08 #### [facility] ([id number]) [address] [place] [address] 77029 Eosinophils/100 WBC (Bld) 2.0 % Normal [facility] Comment on above: Performed By: #### PINR, CBCA, BMP, 07-08 #### [facility] ([id number]) [address] [place] [address] 56297 Erythrocyte distribution width (RBC) [Ratio] 16.3 % High 11.5-15.0 [facility] Comment on above: Performed By: #### PINR, CBCA, BMP, 07-08 #### [facility] ([id number]) [address] [place] [address] 98734 FRAGMENT 1+ Abnormal NONE [facility] Comment on above: Performed By: #### PINR, CBCA, BMP, 07-08 #### [facility] ([id number]) [address] [place] [address] 08792 Hematocrit (Bld) [Volume fraction] 30.9 % Low 35-47 [facility] Comment on above: Performed By: #### PINR, CBCA, BMP, 07-08 #### [facility] ([id number]) [address] [place] [address] 03678 Hemoglobin (Bld) [Mass/Vol] 10.1 g/dL Low 11.7-15.5 [facility] Comment on above: Performed By: #### PINR, CBCA, BMP, 07-08 #### [facility] ([id number]) [address] [place] [address] 28543 Lymphocytes (Bld) [#/Vol] 1.1 10*3/uL Normal 1.0-3.5 [facility] Comment on above: Performed By: #### PINR, CBCA, BMP, 07-08 #### [facility] ([id number]) [address] [place] [address] 15944 Lymphocytes/100 WBC (Bld) 17.0 % Normal [facility] Comment on above: Performed By: #### PINR, CBCA, BMP, 07-08 #### [facility] ([id number]) [address] [place] [address] 89276 MCH (RBC) [Entitic mass] 29.3 pg Normal 27-34 [facility] Comment on above: Performed By: #### PINR, CBCA, BMP, 07-08 #### [facility] ([id number]) [address] [place] [address] 09487 MCHC (RBC) [Mass/Vol] 32.7 g/dL Normal 32-36 [facility] Comment on above: Performed By: #### PINR, CBCA, BMP, 07-08 #### [facility] ([id number]) [address] [place] [address] 24941 MCV (RBC) [Entitic vol] 90 fL Normal 80-100 [facility] Comment on above: Performed By: #### PINR, CBCA, BMP, 07-08 #### [facility] ([id number]) [address] [place] [address] 03037 Monocytes (Bld) [#/Vol] 0.9 10*3/uL Normal 0-0.9 [facility] Comment on above: Performed By: #### PINR, CBCA, BMP, 07-08 #### [facility] ([id number]) [address] [place] [address] 84951 Monocytes/100 WBC (Bld) 14.0 % Normal [facility] Comment on above: Performed By: #### PINR, CBCA, BMP, 07-08 #### [facility] ([id number]) [address] [place] [address] 62311 Neutrophils (Bld) [#/Vol] 4.4 10*3/uL Normal 1.5-6.6 [facility] Comment on above: Performed By: #### PINR, CBCA, BMP, 07-08 #### [facility] ([id number]) [address] [place] [address] 60093 Platelet mean volume (Bld) [Entitic vol] 8.8 fL Normal 7-12 [facility] Comment on above: Performed By: #### PINR, CBCA, BMP, 07-08 #### [facility] ([id number]) [address] [place] [address] 49554 Platelets (Bld) [#/Vol] 302 10*3/uL Normal 150-450 [facility] Comment on above: Performed By: #### PINR, CBCA, BMP, 07-08 #### [facility] ([id number]) [address] [place] [address] 54190 RBC COUNT 3.45 X10E12/L Low 3.80-5.20 [facility] Comment on above: Performed By: #### PINR, CBCA, BMP, 07-08 #### [facility] ([id number]) [address] [place] [address] 37832 SEG NEUTROPHIL 67.0 % Normal [facility] Comment on above: Performed By: #### PINR, CBCA, BMP, 3093 4-4 #### [facility] ([id number]) [address] [place] [address] 31192 WBC (Bld) [#/Vol] 6.4 10*3/uL Normal 4.0-11.0 [facility] Comment on above: Performed By: #### PINR, CBCA, BMP, 3093 4-4 #### [facility] ([id number]) [address] [place] [address] 33133 Natriuretic peptide B [Mass/ Vol]on 03-31-2023 Natriuretic peptide B (Bld) [Mass/Vol] 1050 pg/mL High <100.0 [facility] Comment on above: Performed By: #### PINR, CBCA, BMP, 3093 4-4 #### [facility] ([id number]) [address] [place] [address] 17042 PROTIME AND INRon 03-31-2023 INR Coag (PPP) [Relative time] 3.4 {INR} High 0.8-1.1 [facility] Comment on above: Performed By: #### PINR, CBCA, BMP, 3093 -4 #### [facility] ([id number]) [address] [place] [address] 95135 PT Coag (PPP) [Time] 37.8 s High 9.8-13.2 [facility] Comment on above: Result Comment: NEW REFERENCE RANGE Performed By: #### P INR, CBCA, BMP, 69407-4 #### [facility] ([id number]) [address] [place] [address] 61082 FREE T3on 03-23-2023 Free T3 [Mass/Vol] 2.25 pg/mL Low 2.50-3.90 [facility] Comment on above: Performed By: #### 3051-0 #### [facility] ([id number]) [address] [place] [address] PROTIME AND INRon 03-23-2023 INR Coag (PPP) [Relative time] 2.6 {INR} High 0.8-1.1 [facility] Comment on above: Performed By: #### PINR #### [facility] ([id number]) [address] [facility], [place] [address] PT Coag (PPP) [Time] 29.2 s High 9.8-13.2 [facility] Comment on above: Result Comment: NEW REFERENCE RANGE Performed By: #### P INR #### [facility] ([id number]) [address] [facility], [place] [address] Glucose - FINGER STICKon Glucose [Mass/Vol] 153 mg/dL [employer] Other A1C HEMOGLOBINon 06-18-2022 HbA1c (Bld) [Mass fraction] 7.4 % [employer] Other Glucose - FINGER STICKon Glucose [Mass/Vol] 98 mg/dL [employer] Other HbA1c (Bld) [Mass fraction]o n 06-18-2022 A1C HEMOGLOBIN [employer] [facility] [employer] Other CBC panel Auto (Bld)on 10-16 Erythrocyte distribution width (RBC) [Ratio] 14.8 % Normal 11.5-15.0 [facility] Comment on above: Order Comment: Specimen Type: BLOOD SPEC IMEN Ordering Facility: [facility] Address: [address] [place] [phone] Performed By: #### 5 8410-2 #### [facility] CLIA [id number] [address] [place] [address] [address] [place] Hematocrit (Bld) [Volume fraction] 38.5 % Normal 36.0-46.0 [facility] Comment on above: Order Comment: Specimen Type: BLOOD SPEC IMEN Ordering Facility: [facility] Address: [address] [place], [place] [address] Performed By: #### 5 8410-2 #### [facility] CLIA [id number] [address] [place] [address] [place] Hemoglobin (Bld) [Mass/Vol] 11.7 g/dL Normal 11.5-15.5 [facility] Comment on above: Order Comment: Specimen Type: BLOOD SPEC IMEN Ordering Facility: [facility] Address: [address] [place], [place] [address] Performed By: #### 5 8410-2 #### [facility] CLIA [id number] [address] [place] [address] [place] MCH (RBC) [Entitic mass] 28.1 pg Normal 26.0-34.0 [facility] Comment on above: Order Comment: Specimen Type: BLOOD SPEC IMEN Ordering Facility: [facility] Address: [address] [place], [place] [address] Performed By: #### 5 8410-2 #### [facility] CLIA [id number] [address] [place] [address] [place] MCHC (RBC) [Mass/Vol] 30.4 g/dL Low 30.5-36.0 [facility] Comment on above: Order Comment: Specimen Type: BLOOD SPEC IMEN Ordering Facility: [facility] Address: [address] [place], [place] [address] Performed By: #### 5 8410-2 #### [facility] CLIA [id number] [address] [place] [address] [place] MCV (RBC) [Entitic vol] 92.3 fL Normal 80.0-100.0 [facility] Comment on above: Order Comment: Specimen Type: BLOOD SPEC IMEN Ordering Facility: [facility] Address: [address] [place], [place] [address] Performed By: #### 5 8410-2 #### [facility] CLIA [id number] [address] [place] [address] [place] Nucleated RBC (Bld) [#/Vol] 10*3/uL Normal <0.01 [facility] Comment on above: Order Comment: Specimen Type: BLOOD SPEC IMEN Ordering Facility: [facility] Address: [address] [place], [place] [address] Performed By: #### 5 8410-2 #### [facility] CLIA [id number] [address] [place] [address] [place] Platelet mean volume (Bld) [Entitic vol] 11.1 fL Normal 9.0-12.7 [facility] Comment on above: Order Comment: Specimen Type: BLOOD SPEC IMEN Ordering Facility: [facility] Address: [address] [place] [address] Performed By: #### 5 8410-2 #### [facility] CLIA [id number] [address] [place] [address] [place] Platelets (Bld) [#/Vol] 251 10*3/uL Normal 150-400 [facility] Comment on above: Order Comment: Specimen Type: BLOOD SPEC IMEN Ordering Facility: [facility] Address: [address] [place], [place] [address] Performed By: #### 5 8410-2 #### [facility] CLIA [id number] [address] [place] [address] [place] RBC (Bld) [#/Vol] 4.17 10*6/uL Normal 3.90-5.20 [facility] Comment on above: Order Comment: Specimen Type: BLOOD SPEC IMEN Ordering Facility: [facility] Address: [address] [place], [place] [address] Performed By: #### 5 8410-2 #### [facility] CLIA [id number] [address] [place] [address] [place] WBC (Bld) [#/Vol] 6.02 10*3/uL Normal 3.70-11.00 [facility] Comment on above: Order Comment: Specimen Type: BLOOD SPEC IMEN Ordering Facility: [facility] Address: [address] [place], [place] [address] Performed By: #### 5 8410-2 #### [facility] CLIA [id number] [address] [place] [address] [place] [id number] [facility] CNOVon 10-16-2021 CNOV Office Visit (CARIMN ) ARTHUR YEN ([id number]) 1945 F Date Time Provider Department 10/16/21 3:00 PM PRINCE TRUJILLO During your visit today, we recorded the following information about you: Pulse Blood pressure Weight Height 65/minute 108/70 76.2 kg 1.524 m Prince Trujillo MD 10/16/2021 10:16 PM Signed [facility] [place] Diane Fuller Department of Cardiovascular Medicine SECTION OF CARDIOVASCULAR IMAGING OUTPATIENT VISIT DATE October 16, 2021 OUTPATIENT VISIT TYPE Established PRIMARY CARE PHYSICIAN: Theresa Valles MD ([facility]) [address] [place] [address] REFERRING PHYSICIAN: Theresa Valles MD ([facility]) [facility] [address] CHIEF COMPLAINT: Follow-up. Subjective HISTORY OF PRESENT [...] - Amputation of second toe, left, traumatic ([facility]) - CKD (chronic kidney disease) stage 4, GFR 15-29 ml/min ([facility]) - Depression - Diabetes mellitus ([facility]) type 2 - Diverticulosis - HLD (hyperlipidemia) - HTN (hypertension) - Mitral valve regurgitation moderate to severe per OSH Echo on 06/04/2020 - Morbid obesity ([facility]) - Osteoarthritis - Osteomyelitis ([facility]) - PAD (peripheral artery disease) ([facility]) - Spinal stenosis - Tricuspid valve regurgitation [...] in goo (more content not included)... Normal [facility] Comprehensive metabolic 2000 panelon 10-16-2021 Albumin [Mass/Vol] 3.7 g/dL Low 3.9-4.9 [facility] Comment on above: Order Comment: Specimen Type: BLOOD SPEC IMEN Ordering Facility: [facility] Address: [address] [place] [address] Performed By: #### 2 4323-8 #### [facility] CLIA [id number] [address] [place], [place] [address] [place] [address] [place] ALP [Catalytic activity/Vol] 105 U/L Normal 34-123 [facility] Comment on above: Order Comment: Specimen Type: BLOOD SPEC IMEN Ordering Facility: [facility] Address: [address] [place] [address] Performed By: #### 2 4323-8 #### [facility] CLIA [id number] [address] [place] [id number] [place] ALT [Catalytic activity/Vol] 15 U/L Normal 7-38 [facility] Comment on above: Order Comment: Specimen Type: BLOOD SPEC IMEN Ordering Facility: [facility] Address: [address] [place], [place] [address] Performed By: #### 2 4323-8 #### [facility] CLIA [id number] [address] [place] [address] [place] Anion gap [Moles/Vol] 9 mmol/L Normal 9-18 [facility] Comment on above: Order Comment: Specimen Type: BLOOD SPEC IMEN Ordering Facility: [facility] Address: [address] [place] [address] Performed By: #### 2 4323-8 #### [facility] CLIA [id number] [address] [place] [address] [place] AST [Catalytic activity/Vol] 27 U/L Normal 13-35 [facility] Comment on above: Order Comment: Specimen Type: BLOOD SPEC IMEN Ordering Facility: [facility] Address: [address] [place], [place] [address] Performed By: #### 2 4323-8 #### [facility] CLIA [id number] [address] [place] [address] [place] Bilirubin [Mass/Vol] 0.3 mg/dL Normal 0.2-1.3 [facility] Comment on above: Order Comment: Specimen Type: BLOOD SPEC IMEN Ordering Facility: [facility] Address: [address] [place] [address] Performed By: #### 2 4323-8 #### [facility] CLIA [id number] [address] [place] [address] [place] Calcium [Mass/Vol] 10.7 mg/dL High 8.5-10.2 [facility] Comment on above: Order Comment: Specimen Type: BLOOD SPEC IMEN Ordering Facility: [facility] Address: [address] Performed By: #### 2 4323-8 #### [facility] CLIA [id number] [address] [place] [address] [place] Chloride [Moles/Vol] 104 mmol/L Normal 97-105 [facility] Comment on above: Order Comment: Specimen Type: BLOOD SPEC IMEN Ordering Facility: [facility] Address: [address] [place], [place] [address] Performed By: #### 2 4323-8 #### [facility] CLIA [id number] [address] [place] [address] [place] CO2 [Moles/Vol] 27 mmol/L Normal 22-30 [facility] Comment on above: Order Comment: Specimen Type: BLOOD SPEC IMEN Ordering Facility: [facility] Address: [address] [place], [place] [address] Performed By: #### 2 4323-8 #### [facility] CLIA [id number] [address] [place] [address] [place] Creatinine [Mass/Vol] 1.75 mg/dL High 0.58-0.96 [facility] Comment on above: Order Comment: Specimen Type: BLOOD SPEC IMEN Ordering Facility: [facility] Address: [address] [place] [address] Performed By: #### 2 4323-8 #### [facility] CLIA [id number] [address] [place] [address] [place] ESTIMATED GLOMERULAR FILTRATION RATE 30 mL/min/1.73m??? Low >=60 [facility] Comment on above: Order Comment: Specimen Type: BLOOD SPEC IMEN Ordering Facility: [facility] Address: [address] [place] [address] Result Comment: Cecelia mated Glomerular Filtration Rate [...] GFR. Performed By: #### 2 4323-8 #### [facility] CLIA [id number] [address] [place] [address] [place] Glucose [Mass/Vol] 74 mg/dL Normal 74-99 [facility] Comment on above: Order Comment: Specimen Type: BLOOD SPEC IMEN Ordering Facility: [facility] Address: [address] [place], [place] [address] Result Comment: The [place] [employer] (ADA) provides guidance for cutoff [...] Standards of Medical Care in Diabetes 2016, [place] [employer]. Diabetes Care. 2016.39(Suppl 1). Performed By: #### 2 4323-8 #### [facility] CLIA [id number] [address] [place] [address] [place] Potassium [Moles/Vol] 4.9 mmol/L Normal 3.7-5.1 [facility] Comment on above: Order Comment: Specimen Type: BLOOD SPEC IMEN Ordering Facility: [facility] Address: [address] [place] [phone] Performed By: #### 2 4323-8 #### [facility] CLIA [id number] [address] [place] [address] [place] Protein [Mass/Vol] 7.2 g/dL Normal 6.3-8.0 [facility] Comment on above: Order Comment: Specimen Type: BLOOD SPEC IMEN Ordering Facility: [facility] Address: [address] [place] [address] Performed By: #### 2 4323-8 #### [facility] CLIA [id number] [address] [place] [address] [place] Sodium [Moles/Vol] 140 mmol/L Normal 136-144 [facility] Comment on above: Order Comment: Specimen Type: BLOOD SPEC IMEN Ordering Facility: [facility] Address: [address] [place] [address] Performed By: #### 2 4323-8 #### [facility] CLIA [id number] [address] [place] [address] [place] Urea nitrogen [Mass/Vol] 60 mg/dL High 7-21 [facility] Comment on above: Order Comment: Specimen Type: BLOOD SPEC IMEN Ordering Facility: [facility] Address: [address] [place] [address] Performed By: #### 2 4323-8 #### [facility] CLIA [id number] [address] [place] [address] [place] ECG COMPLETEon 10-16-2021 ECG COMPLETE Ventricular Rate : 6 5 BPM Atrial Rate : 65 BPM P-R Interval : 172 ms QRS Duration : 114 ms Q-T Interval : 390 ms QTC Calculation(Bazett) : 405 ms Calculated P [place] : 56 degrees Calculated R [place] : -66 degrees Calculated T [place] : -106 degrees NORMAL SINUS RHYTHM LEFT AXIS DEVIATION NONSPECIFIC ST AND T WAVE ABNORMALITY ABNORMAL ECG Confirmed by PRABHJOT TOMLINSON MD ([id number]) on 11/08/2021 12:27:03 PM NAME : ARTHUR YEN PID : [id number] : 1945 Gender : Female Race : ORD : [id number] Procedure Date : Oct 16 2021 13:48:20 [...] : , Acquired by : RIVAS ALVARADO [facility] Lipid 1996 panelon 2 Cholesterol [Mass/Vol] 135 mg/dL Normal <200 [facility] Comment on above: Order Comment: Specimen Type: BLOOD SPEC IMEN Ordering Facility: [facility] Address: [address] [place], [place] [id number] Result Comment: <200 mg/dL, Desirable 200-239 mg/dL, Borderline high >239 mg/dL, High Performed By: #### 2 4331-1 #### [facility] CLIA [id number] [address] [place] [address] [place] Cholesterol in HDL [Mass/Vol] 58 mg/dL Normal >39 [facility] Comment on above: Order Comment: Specimen Type: BLOOD SPEC IMEN Ordering Facility: [facility] Address: [address] [place] [address] Result Comment: 40-5 9 mg/dL, Acceptable >59 mg/dL, High: Negative risk factor for coronary heart disease <40 mg/dL, Low: Positive risk factor for coronary heart disease Performed By: #### 2 4331-1 #### [facility] CLIA [id number] [address] [place] [address] [place] Cholesterol in LDL [Mass/Vol] 66 mg/dL Normal <100 [facility] Comment on above: Order Comment: Specimen Type: BLOOD SPEC IMEN Ordering Facility: [facility] Address: [address] [place] [address] Result Comment: <100 mg/dL, Optimal 100-129 mg/dL, Near optimal/above optimal 130-159 mg/dL, Borderline high 160-189 mg/dL, High >189 mg/dL, Very high Secondary prevention optimal LDL Cholesterol levels are recommended to be < 70 mg/dL Performed By: #### 2 4331-1 #### [facility] CLIA [id number] [address] [place] [address] [place] Cholesterol in LDL/Cholesterol in HDL [Mass ratio] 1.14 {ratio} Normal <2.54 [facility] Comment on above: Order Comment: Specimen Type: BLOOD SPEC IMEN Ordering Facility: [facility] Address: [address] [place] [address] Result Comment: Refe rence: 1. National Cholesterol Education Program ATP III Guideline At-A-Glance Quick Desk Reference: National Heart, Lung, and Blood [place]. National Institutes of Health. 2001: NIH Publication No. 01-3305. 2. An International Atherosclerosis Society position paper: global recommendations for the management of dyslipidemia: executive summary, Atherosclerosis. 2014: 232(2):410-413. Performed By: #### 2 4331-1 #### [facility] CLIA [id number] [address] [place] [address] [place] Cholesterol in VLDL [Mass/Vol] 11 mg/dL Normal <30 [facility] Comment on above: Order Comment: Specimen Type: BLOOD SPEC IMEN Ordering Facility: [facility] Address: [address] [place] [address] Performed By: #### 2 4331-1 #### [facility] CLIA [id number] [address] [place] [address] [place] Cholesterol non HDL [Mass/Vol] 77 mg/dL Normal <130 [facility] Comment on above: Order Comment: Specimen Type: BLOOD SPEC IMEN Ordering Facility: [facility] Address: [address] [place] [address] Result Comment: <130 mg/dL, Optimal 130-159 mg/dL, Near optimal/above optimal 160-189 mg/dL, Borderline high 190-219 mg/dL, High >219 mg/dL, Very high Secondary prevention optimal non HDL Cholesterol levels are recommended to be <100 mg/dL Performed By: #### 2 4331-1 #### [facility] CLIA [id number] [address] [place] [address] [place] Cholesterol.tota l/Cholesterol in HDL [Mass ratio] 2.33 {ratio} Normal <5.10 [facility] Comment on above: Order Comment: Specimen Type: BLOOD SPEC IMEN Ordering Facility: [facility] Address: [address] [place] [address] Performed By: #### 2 4331-1 #### [facility] CLIA [id number] [address] [place] [address] [place] FASTING TIME 12 hrs Normal [facility] Comment on above: Order Comment: Specimen Type: BLOOD SPEC IMEN Ordering Facility: [facility] Address: [address] [place] [address] Performed By: #### 2 4331-1 #### [facility] CLIA [id number] [address] [place] [address] [place] Triglyceride [Mass/Vol] 54 mg/dL Normal <150 [facility] Comment on above: Order Comment: Specimen Type: BLOOD SPEC IMEN Ordering Facility: [facility] Address: [address] [place] [address] Result Comment: <150 mg/dL, Normal 150-199 mg/dL, Borderline high 200-499 mg/dL, High >499 mg/dL, Very high Performed By: #### 2 4331-1 #### [facility] CLIA [id number] [address] [place] [address] [place] XR CHEST 2V FRONTAL/LATon XR CHEST 2V FRONTAL/LAT * * *Final Report* * * DATE OF EXAM: Oct 16 2021 2:00PM JIX [id number] - XR CHEST 2V FRONTAL/LAT / PROCEDURE REASON: multiple diagnoses * * * * Physician Interpretation * * * * EXAMINATION: CHEST RADIOGRAPH (2 VIEW FRONTAL and LATERAL) CLINICAL HISTORY: Coronary artery disease involving [place] coronary artery of [place] heart without angina pectoris Nonrheumatic aortic valve [...] atelectasis or pneumonia/aspiration. Radiographic follow-up is suggested. Media Relations Director: JUAN DIEGO Transcribe Date/Time: Oct 16 2021 2:56P Dictated by : MAURA CANALES MD This examination was interpreted and the report reviewed and electronically signed by: MAURA CANALES MD on Oct 16 2021 3:00PM EST [id number] Normal [facility] Coding Summaryon 04-22-2021 Coding Summary HTMLBase 64 UeyxlfwrXXf4vWj+PGhlYWQ+PE1FVE OyR10xpHLdzC5UX0qNWX0PQBFNEHAF ME2MEC2hqHB9ZSwiW9LyivFg XggcrRDaLF04QJm8QKY6mHtoHNtsuE 2vnTNiO4o2TgQsXJ13bQ55VCmpGUNj MhS5CqOocgnhnMNn N5fqMbPxgSWgRdb+PHRhYmxlIHdpZH WnDDpfRFUkNmIfhBoyPI4dUn7rZISx LWNvbGxhcHNlOiBj r2frXBBiRKscDG9laRbkF1EfdTY0QT Doe1s5Ki05eLL+LQRnXLN4qKewCQfu w718BdRuz9kxSEI4 eEIdOSazQPL6J08ob6D5JMYyULUlYX F1lHL3uP3cwDqmsiiwA4RnhURaMcH5 WWF6xXGqsK8shZrb obsygY9aUdp+I25BLJ1MZFKWEU2LNp o1L2GzSrwyxTO+FV09QBGiJH84iVNk fFTzz2rixDs5MoOo QNDhMNN6bRygXPlrl8RyFZAwE09biA Guo2Q6OJPyqGnbsKXeEfKgeTU8rS8t WJearafnv8qjbzeb Ldlzl4szrl46oI46M84rIUllFWBwJL J2VDSvZHZcxJhnwt4fnM2tGn6+IDxj m7mvu2keuTj8GgKx QZYrurFozGmfSYI0t0YpKs68S1NuzL nhr2KeJbd4lh37kAXzj4O7aDV7OHkd HYLucY2fHWrsNyC8 CUKjNvAayT73vWMcLGgrCm7zeZlwzI dbWS5eQDYrtucuNILjyW1aNXMyqPEw rPxnVB6oUMZehpsx n907WzRyEJX9GFVxlVRpT8IuzH1mWc ByNQOuKAMxF5DpgZKqSNstW246MYmw XvB4BGBknmEeH4Mq NMKogWmwTbW4c2X0Mc4Kt4QazbziZE H1KLuyHFArUdK6AsZtFkP6C0ZjTke4 GEJjpXsxTT7nL4Rx SKUsfllozhicoNJ3ACGgAKFufT00mV PjSIjaUq1fh1M6j226UNPcLCPfsP74 Re2fhKdiIOWxjOTS qG1gsleht4xoxsszCaGtEMNoOZf2QW k8CFNfpEsiYnWpCAI7WvA2DZW7sFKh yI9axMpxycyjeD7q Oyc+Z18ldU1oJMN2ORE2rpnuUKZots PxRM72TG97O4GsFohowQDsxZU+PGRp vvMuqLgqVK1xYpEv a2ycn0EbYIyvO7FrBDVfDBzkRur4TM UbTMW2iEF0oE2xKZMbKXfyi3G8oGZ7 F1RnvrJgiz6vi2ef AGEiHVyuQ65sjSEri1B6GMPkkMK7DK ZxhVzdMnYelG46Djp+VFBhsXcxr7Lc Rnrbk6vwx9wznGh1 VtJkJUMnujRuhKujFPR0u0NoEn17J3 9fESdcYWOkISUfDFDpHCLfsUghkq4m nC7yZx9+PGNvbCB3 uHP7pM6pUIZaAxJ1NInnF849KjVtoR YzMlrph5ctb3mqxRb5TkEpPRQrinDm vIjwYUZ8r9LcOs86 R95aXPkpOJEiSAUjDKAvZQQwrYfgyf 7sgX3yBg6+SE1ud2apko92hA38zLE+ CEYqGXP6nUytWDkj ZUUhqT2dPHpsTxE6KGTdKpJvuP38bU IpVFeiHu8mbZhwaEzqHY7nNRBtlote w237XnKzi9vqSOBv aIVpGSpjRYA5Q20cb0B4DOBhYSWvOQ D6mOH9qS5caDhdjgubnLDpiZpozuQj rTaqLVboNEeaI661 CWQhcVoiSqEomZwjwsAiJdPaIQp1K8 TtDcj7JIPupAfoFW0afXIuFFheRc6t lIblbZaqAK0uVQGu ajsrd368ZmAei7ibOWUnqDDiQZvcUL N4P60fw5X4HVRmIAZgZUS7vOQ6sC9m bGlnbjogbGVmdDsg teRavOxzZNkxDYsoC046JVIhzXqjVe JrpxLcPJCbuLZ3OY28FR08mWDvk6H1 fGO6K8RpWRDsbhyv zgyhpKF6GSQfLSKvbB73Yl7cyHmpPh 6rZWTfAHC9GUGnaRVaR8OkqY2zVrWc GQZvMXLaS4AbxBHi XUvlM391CWuxHhU0AYXfloVnB4KoHX BhePtmOgE4p7J2Gu8TT8Y4BQ13UQ77 eYOpb7N4vQR5E1Rq KDHkosnyjodpoNF9TFQyEMAdjZ88Uy 9tiHraYs3nJSUcRUT1DKRrfRNaE4Wi kV4uLjStKOQwBTJe P6BkxPRwPNrcK307JZnxHuP0QDFunb ZhU5VmFGXojBleNuP9f7S9Ke4SRTk7 MA06OA10bZEzs1V7 mIS0K4MtVZLxegbunlbhzUB1OPBkCV AipE81Sr7azIseZb6wVKRoXXT1RWHi xXMoV8IxaJ6cVyPl ZDFwPUVgC8FirZOpYTiiO106WHjsHe B7JDTkvuGkI3FiNQXxtCzyAzV7g9Y3 Jg3QSXBzMM22UEQ8 nDG7BM78QP56M8SnPqxkqTNzeZV+PH RhYmxlIHdpZHRoPScxMDAlJyBzdHls HD6rOr6gGJSyQEVj sKmkgUCcWyXqm8adMOEePYxbFV9npB mfO6TfmYS9ZLDni6r1Ve60L90vO1Cz dXA+KAOqxUC8sWJ0 jY4aDyZzBqZ3VLehS586QaPyfAMeOg lkp2lqo4pizVl5JxA3MDAmwrIkvSus KEM8m2AiAo22N31v AYzuMKJaDNKgNAXmKBBuuGgamq2pvE 9wIi8+FLTexRB3iTU7vR0cOiOsSpB6 WWacO795AlOdgUEp Njogm8ocl7uftZs6AuObABNrbsLfmJ zwMKG8g1JfMj37P1CnsUdsb3LrXig2 yn62vUOdi0V2dBC6 V7TwHTFjsyyxxLQddSceOB3pZKQhce drRIDbnA5kIZXpA8e5GvTkRtB6PMfe Z7VhsgI2DQBpoKTe LTsyREU3V23sm8P1MPVgFGVzXHA2aU H7qW2fyTpjymkicNCueFslbkQbuZbh FOmcJSlxR702TUKi vUpqTHVquN1cZJRzzTVetVsnIL5eJQ QqkqnbEfOJQY5EHgeNDenmPx4WMMuJ XcRUNI4BODqqrFD+ IUWeQSH5cDczTBedNRQqvZ2nTZKuR8 i1TrVjLcH4LTbbO5AyHZZzwrvkHc90 eC0sSfYmHdU9AFfs Y6QpzpL6LFXenHAjTXnkAKY0R64rq3 E5ZCObWCAeCLU9jGM2mM0iwJbsquct bGVmdDsgdmVydGlj SFbkTIedI075TKMwdPsyXdH5YkS5Hv L5TCN9U6HcPop7MAAckWsmJU1uwOJu UJfhNz1hpEgygAye TD5kTAAqtmroNOKqaX2yVJAmvZFecU pzKA4oGRTpauqhq824EwPcCWP5UWNo jHFnB5CgfD5rEpGu XAAoWVLgN7CzqHWjDSrrP189RPgeEf J2RKNzptTbN5RiKIYvzTzlJmG2g6V3 Ov87FkVMLTMfppgt dGQ+PDXgLBG4bJwiYNuyBZByhT1cJY JeR5m9YkSsKcN4SHioQ0VdBFZlmszq Rl52iX6sFaFoFmP2 MKljJ3LsghQ8IGEgzMXdOCbzCSI7C4 2tz9V1GXQxCOYpCBK7nIH3kK7ixLlm bjogbGVmdDsgdmVy jGwpBRspJXtpW151FEJajHbnOsQNZE FMRTwvdGQ+XQEfESZ7wShqJNnzTWHt kF4eHVHyS2e8EzBy LcV8PCstS8DnBOLhmqdyRq42mD7gLo JiUsJ7FBdaC6LrgzW9NMTuzEFpBTns SJM5J68ec3H0NOTw FZOfFNI8jTW9fG0jdAfukswdfJZkyE vkbwPqkJteOBqfQUvpX161EIXjlVdf Hy7MGT36KQ09J2Zt PjwvdGFibGU+PHRhYmxlIHdpZHRoPS hkUZKfWdFyjZpeYV0iPx8rMEAjTNEi sGnscMRaYaTnr6mf WDEcFZhwGG4nvPlnX1KdkUG6HJMyg7 o0Rc86P55gV6WqbID+NLHxhGN0eSK7 kT4oXlBiZeX5OJcb Y995EhXafDTcVtspl0zgy2namZk6Zn AiLVRzpvTuvCocFBB6d8BdNl97J34i IHdpZHRoPSIyMCUi MCZyxKtddb7ebX9cMs4+EZYkwGA2oZ L8nV6qErEwOuV6REskI878FbSouCFo HdndW50xN2TfvCQ+ AVKcJbu1GRPtpRbdOD6xhDCwNXliYw 4cKUL9ZpAvMuVwBMvsA4IrXSQghwrl pklhhGA9UXVhGDWm xR37Jj6heBpuUe1lHPKwVPJ9DFCgaC SmG8GtwF5vLxEdELMtUEUiW8NzfRFk ENhkW634UKzwLsK7 MKXqgcEjE9JlRSHmaSazObC6a0H1Cx 5EgJuegAXcXV1pRaOlYDo7F0BkZwe1 BBTnhGtnBT9ovUNx ATwnPc7pvDwdfOvuOC4xBSIeboidj3 20MnUuf0ljMPKygQCcUSkmERT7Q73p p6E9SYAdXSZnKNL2 nZY6xG0hrQlrtlsctQTfsAjahtOdjN juVAbiTKqxJ741VFInbZweSgDERpo3 M1RlIea2DPFhnKaa PN9dzWJkUWsqSn6qyLldfYxmTV9hNI Awbyifp538PvDwt4pfSTAdxPJyGQjk CJV2Q54or4W2NSTw IHJjORY3jSR5tQ7nyDddksqnwYUjwB jaydVlgZkjNWiiKMkjA613GWJoiLiy Tj8EPzb1N7ChFct9 IIWtgXlbCI2uhAJnNUadNc5niAvssW ybFT5iQAZbukvkj839WqMqi1whYYJu cUIlTHnhPWJ4Q62n d0O4VPIbKLDiLUK9hDF2pJ0iaMgskp xjnTVrwMxiaoBkwCrdRRxiQEspV290 IHRvcDsnPlBheWVy OjwvdGQ+PJ62yt99F1CzYtrsQoi6TN RtZZU4fZM5cK4lCLWbOJrvr4K8jCM6 I6OpouFbcy7xx2ln YXB (more content not included)... [facility] Consent Formson 04-22-2021 Consent Forms [id number]#[id number]erson 04-22-2021 Provider Orders [id number]#1.00OT[facility] - Nurseon 04-06 Progress Note - Nurse pt tolerated infusion with no signs and symptoms of reaction. pt discharged with understanding of instructions. [Electronically Signed on: 05/29/2021 12:07 EST] Christian Padilla RN [Verified on: 05/29/2021 12:07 EST] Christian Padilla RN [facility]on 04-06 SARS-CoV-2 (COVID-19) RNA LYNDSEY+probe Ql (Unsp spec) Detected Critically abnormal NOT DETECTED [facility] Comment on above: Result Comment: This test is not yet andria roved or cleared by the [place] FDA. When there are no FDA-approved or cleared tests available, and other criteria are met, FDA can make tests available under an emergency access mechanism called an Emergency Use Authorization (EUA). The EUA for this test is supported by the [place] of Health and Human Service's (HHS's) declaration [...] used). Performed By: #### C VDTBH #### [facility] [address] [place] [address] Dr. Joyce Clemons INFLUENZA A AND B AGon 04-15 INFLUANEGH SEE BELOW Normal [facility] Comment on above: Result Comment: Negative for Flu A prote in angiten. Infection due to Flu A cannot be ruled out. Flu A angiten in the sample may be below the detection limit of the test. Performed By: #### I NFLUAB #### [facility] [address] [place] [address] Dr. Joyce Clemons INFLUBNEG SEE BELOW Normal [facility] Comment on above: Result Comment: Negative for Flu B prote in antigen. Infection due to Flu B cannot be ruled out. Flu B antigen in the sample may be below the detection limit of the test. Performed By: #### I NFLUAB #### [facility] [address] [place] [address] Dr. Joyce Clemons INFLUENZA A AG Negative Normal NEGATIVE SEE COMMENT [facility] Comment on above: Performed By: #### INFLUAB #### [facility] [address] [place] [address] Dr. Joyce Clemons INFLUENZA B AG Negative Normal NEGATIVE SEE COMMENT [facility] Comment on above: Performed By: #### INFLUAB #### [facility] [address] [place] [address] Dr. Joyce Clemons INTERNAL CONTROLS Within Normal Limits Normal Within Normal Limits [facility] Comment on above: Performed By: #### INFLUAB #### [facility] [address] [place] [address] Dr. Joyce Clemons Q - CULTURE,URINE,ROUTINEon 04-15-2021 CULTURE, URINE, ROUTINE SEE NOTE Abnormal [facility] [employer] Comment on above: Order Comment: [employer] 00R Testing performed at: QPT, [employer] Diagnostics [facility], [address] [place] [address], [address] [place] [address], [id number], Audiologist: Breezy Palomo MD [facility] Collection Date/Time: [facility] Results Received Date/Time: [id number] [facility] Reported Date/Time: [id number] Result Comment: CULT URE, URINE, ROUTINE Micro Number: [id number] Test Status: Final Specimen Source: Not given [...] #### 6 304R #### [facility] Default [address] [place] [address] 188[address] BNPon 09-15-2020 Natriuretic peptide B (Bld) [Mass/Vol] 33435.0 pg/mL Critically high <=1,800.0 [facility] Comment on above: Result Comment: test repeated, critical value verified Performed By: #### C MADM, CMP, BNP #### [facility] [address] [place] [address] Huy Charley CARDIAC LYNNE ADMITon 021 CK [Catalytic activity/Vol] 67 U/L Normal 30-135 [facility] Comment on above: Performed By: #### CMADM, CMP, BNP #### [facility] [address] [place], [place] [address] Huy Charley CK.MB [Mass/Vol] 2.32 ng/mL Normal <=2.37 [facility] Comment on above: Performed By: #### CMADM, CMP, BNP #### [facility] [address] [place] [address] Huy Wallaceen HSTROP 27.7 pg/mL Normal 4.0-35.5 [facility] Comment on above: Result Comment: CUT-OFF POINTS HAVE BEEN ESTABLISHED BASED ON THE FOURTH UNIVERSAL DEFINITIONS OF MYOCARDIAL INFARCTION. THE UPPER REFERENCE LIMIT (URL) OF TROPONIN, DEFINED THE 99TH PERCENTILE OF cTnI DISTRIBUTION IN A REFERENCE POPULATION, HAS BEEN CONFIRMED THE DECISION THRESHOLD FOR MS DIAGNOSIS. Performed By: #### C MADM, CMP, BNP #### [facility] [address] [place], [place] [address] Huyingrid Whitehead STEPHIE 328.0 ng/mL Critically high <=61.5 [facility] Comment on above: Result Comment: test repeated, critical value verified Performed By: #### C MADM, CMP, BNP #### [facility] [address] [place], [place] [address] Huyingrid [place] CBC AUTO DIFFon 09-15-2020 BASO # 0.1 103/ul Normal 0.0-0.1 [facility] Comment on above: Performed By: #### CBC ####[facility] ital [address] [place] [address]Gerken Charley Basophils/100 WBC (Bld) 0.7 % Normal 0.2-2.0 [facility] Comment on above: Performed By: #### CBC ####[facility] Xxnuvmshhi55[address] [place] [id number] Charley EO # 0.2 103/ul Normal 0.0-0.7 [facility] Comment on above: Performed By: #### CBC ####[facility] ital Bsqxlnetgk15[address] [place] [id number] Charley Eosinophils/100 WBC (Bld) 1.9 % Normal 0.9-7.0 [facility] Comment on above: Performed By: #### CBC ####[facility] Ghzjqxypoi39[address] [place] [phone] Charley Erythrocyte distribution width (RBC) [Ratio] 17.3 % Critically high 11.0-15.0 [facility] Comment on above: Performed By: #### CBC ####[facility] Qhhwetuant1817 [place] [id number] Charley Hematocrit (Bld) [Volume fraction] 36.5 % Normal 36.0-48.0 [facility] Comment on above: Performed By: #### CBC ####[facility] ital Meyfhipduh[address] [place] [phone] Charley Hemoglobin (Bld) [Mass/Vol] 11.1 g/dL Critically low 12.0-16.0 [facility] Comment on above: Performed By: #### CBC ####[facility] Tvya[address]xh[address] [place] [phone] Charley IG # 0.02 10e3/ul Normal 0.00-0.03 [facility] Comment on above: Performed By: #### CBC ####[facility] Wbwykvbgzv[address] Charley IG % 0.2 % Normal 0.0-0.5 [facility] Comment on above: Performed By: #### CBC ####[facility] Mnpjzawvya[address] Charley LYMPH # 0.7 103/ul Critically low 1.2-3.8 [facility] Comment on above: Performed By: #### CBC ####[facility] Qodmknpmhz[address] Charley Lymphocytes/100 WBC (Bld) 8.4 % Critically low 20.5-60.0 [facility] Comment on above: Performed By: #### CBC ####[facility] Ewyitcmubg[address] [place] MANUAL DIFF REQ NO Normal [facility] Comment on above: Performed By: #### CBC ####[facility] Dorwdumfea07[address] [place] [phone] Charley MCH (RBC) [Entitic mass] 29.8 pg Normal 26.7-34.0 [facility] Comment on above: Performed By: #### CBC ####[facility] Npixbvgnzx[address] Charley MCHC (RBC) [Mass/Vol] 30.4 g/dL Normal 29.9-35.2 [facility] Comment on above: Performed By: #### CBC ####[facility] ital Nrfjynwesr23[address] [place] [phone] Charley MCV (RBC) [Entitic vol] 97.9 fL Normal 81.0-99.0 [facility] Comment on above: Performed By: #### CBC ####[facility] ital Jgvn[address]jjksz8[address] [place], [place] [address]Xeuiyd Charley MONO # 0.5 103/ul Normal 0.3-0.8 [facility] Comment on above: Performed By: #### CBC ####[facility] Nutmkychyk0455 [place] [phone] Charley Monocytes/100 WBC (Bld) 6.4 % Normal 1.7-12.0 [facility] Comment on above: Performed By: #### CBC ####[facility] [address] [place], [place] [address]Gerken Charley NEUT # 6.8 103/ul Critically high 1.4-6.5 [facility] Comment on above: Performed By: #### CBC ####[facility] [address] [place], [place] [address]Gerken Charley Neutrophils/100 WBC (Bld) 82.4 % Critically high 43.0-75.0 [facility] Comment on above: Performed By: #### CBC ####[facility] H[address]dwbfilt9649 [place] [phone] Charley Platelet mean volume (Bld) [Entitic vol] 11.0 fL Normal 9.5-13.5 [facility] Comment on above: Performed By: #### CBC ####[facility] [address] [place] [phone] Charley PLT 282 103/ul Normal 150-450 [facility] Comment on above: Performed By: #### CBC ####[facility] [address] [place], [place] [id number] Charley RBC 3.73 106/ul Critically low 4.20-5.40 [facility] Comment on above: Performed By: #### CBC ####[facility] [address] [place], [place] [address]Chwseo Karen WBC 8.3 103/ul Normal 4.0-11.0 [facility] Comment on above: Performed By: #### CBC ####[facility] [address] [place], [place] [address]AworlnHuy [place] OCC BLD IMMUNO SCREENon 09-04 OCCULT BLOOD Positive Abnormal NEGATIVE [facility] Comment on above: Performed By: #### OBSCRN #### [facility] [address] [place], [place] [address] Huy Charley PROF 14(COMP METB)on 021 Albumin [Mass/Vol] 2.8 g/dL Critically low 3.5-5.0 [facility] Comment on above: Performed By: #### CMADM, CMP, BNP #### [facility] [address] [id number] Huy Charley Albumin/Globulin [Mass ratio] 0.7 {ratio} Normal [facility] Comment on above: Performed By: #### CMADM, CMP, BNP #### [facility] [address] [id number] Huy Charley ALP [Catalytic activity/Vol] 142 U/L Critically high 38-126 [facility] Comment on above: Performed By: #### CMADM, CMP, BNP #### [facility] [address] [id number] Huy Charley ALT [Catalytic activity/Vol] 22 U/L Normal 9-52 [facility] Comment on above: Performed By: #### CMADM, CMP, BNP #### [facility] [address] [place], [place] [address] Huy Charley Anion gap [Moles/Vol] 11.4 mmol/L Normal [facility] Comment on above: Performed By: #### CMADM, CMP, BNP #### [facility] [address] [id number] Huy Charley AST [Catalytic activity/Vol] 28 U/L Normal 14-36 [facility] Comment on above: Performed By: #### CMADM, CMP, BNP #### [facility] [address] [address] Huy Charley Bilirubin [Mass/Vol] 0.4 mg/dL Normal 0.2-1.3 [facility] Comment on above: Performed By: #### CMADM, CMP, BNP #### [facility] [address] [address] Huy Charley Calcium [Mass/Vol] 9.6 mg/dL Normal 8.4-10.2 [facility] Comment on above: Performed By: #### CMADM, CMP, BNP #### [facility] [address] [address] Huy Charley Chloride [Moles/Vol] 107 mmol/L Normal 98-107 [facility] Comment on above: Performed By: #### CMADM, CMP, BNP #### [facility] [address] [place] [address] Huy Charley CO2 [Moles/Vol] 29.9 mmol/L Normal 22.0-30.0 [facility] Comment on above: Performed By: #### CMADM, CMP, BNP #### [facility] [address] [address] Huy Charley Creatinine [Mass/Vol] 1.52 mg/dL Critically high 0.52-1.04 [facility] Comment on above: Performed By: #### CMADM, CMP, BNP #### [facility] [address] [address] Huy Charley EGFR-AF MAURITIAN 40 mL/min/1.73m2 Critically low >=60 [facility] Comment on above: Performed By: #### CMADM, CMP, BNP #### [facility] [address] [address] Huy Charley EGFR-NON AF MAURITIAN 33 mL/min/1.73m2 Critically low >=60 [facility] Comment on above: Performed By: #### CMADM, CMP, BNP #### [facility] Laboratory [address] [address] [place] Globulin (S) [Mass/Vol] 4.3 g/dL Normal [facility] Comment on above: Performed By: #### CMADM, CMP, BNP #### [facility] Laboratory [address] [id number] [place] Glucose [Mass/Vol] 206 mg/dL Critically high 74-106 [facility] Comment on above: Performed By: #### CMADM, CMP, BNP #### [facility] Laboratory [address] [address] [place] Potassium [Moles/Vol] 4.3 mmol/L Normal 3.4-5.0 [facility] Comment on above: Performed By: #### CMADM, CMP, BNP #### [facility] Laboratory [address] [address] [place] Protein [Mass/Vol] 7.1 g/dL Normal 6.1-8.2 [facility] Comment on above: Performed By: #### CMADM, CMP, BNP #### [facility] Laboratory [address] [address] [place] Sodium [Moles/Vol] 144 mmol/L Normal 137-145 [facility] Comment on above: Performed By: #### CMADM, CMP, BNP #### [facility] Laboratory [address] [address] [place] Urea nitrogen [Mass/Vol] 38.0 mg/dL Critically high 7.0-17.0 [facility] Comment on above: Performed By: #### CMADM, CMP, BNP #### [facility] Laboratory [address] [address] [place] Urea nitrogen/Creatin ine [Mass ratio] 25.0 mg/mg Normal [facility] Comment on above: Performed By: #### CMADM, CMP, BNP #### [facility] Laboratory [address] [phone] [place] PROTIMEon 09-15-2020 INR Coag (PPP) [Relative time] 1.61 {INR} Normal [facility] Comment on above: Performed By: #### PTT, PT #### [facility] Laboratory [address] [phone] [place] INR GUIDELINES SEE BELOW Normal [facility] Comment on above: Result Comment: DESIRED INR: 2.0 - 3.0 C ONDITIONS NOT LISTED BELOW 2.5 - 3.5 FOR PROSTHETIC HEART VALVE REPLACEMENT 2.5 - 3.5 RECURRENT THROMBOSIS Performed By: #### P TT, PT #### [facility] Laboratory [address], [place] [address] [place] PT Coag (PPP) [Time] 17.2 s Critically high 9.0-11.6 [facility] Comment on above: Performed By: #### PTT, PT #### [facility] Laboratory [address], [place] [address] [place] PTTon 09-15-2020 aPTT Coag (Bld) [Time] 31.2 s Normal 22.3-36.2 [facility] Comment on above: Performed By: #### PTT, PT #### [facility] Laboratory [address], [place] [address] Huyingrid [place] XR CHEST 1 Von 09-15-2020 [...] SAM ZIMMERMAN Date: 2020-09-15 14:49 Normal [facility] PROF CHEM 8 (BAS METB)on Anion gap [Moles/Vol] 9.2 mmol/L Normal [facility] Comment on above: Performed By: #### BMP #### [facility] Laboratory [address], [place] [address] [place] Calcium [Mass/Vol] 9.5 mg/dL Normal 8.4-10.2 [facility] Comment on above: Performed By: #### BMP #### [facility] Laboratory [address] [phone] [place] Chloride [Moles/Vol] 111 mmol/L Critically high 98-107 [facility] Comment on above: Performed By: #### BMP #### [facility] Laboratory [address] [address] [place] CO2 [Moles/Vol] 31.3 mmol/L Critically high 22.0-30.0 [facility] Comment on above: Performed By: #### BMP #### [facility] Laboratory [address] [address] [place] Creatinine [Mass/Vol] 1.56 mg/dL Critically high 0.52-1.04 [facility] Comment on above: Performed By: #### BMP #### [facility] Laboratory [address] [address] [place] EGFR-AF MAURITIAN 39 mL/min/1.73m2 Critically low >=60 [facility] Comment on above: Performed By: #### BMP #### [facility] Laboratory [address] [address] [place] EGFR-NON AF MAURITIAN 32 mL/min/1.73m2 Critically low >=60 [facility] Comment on above: Performed By: #### BMP #### [facility] Laboratory [address] [address] [place] Glucose [Mass/Vol] 89 mg/dL Normal 74-106 [facility] Comment on above: Performed By: #### BMP #### [facility] Laboratory [address] [address] [place] Potassium [Moles/Vol] 4.5 mmol/L Normal 3.4-5.0 [facility] Comment on above: Performed By: #### BMP #### [facility] Laboratory [address] [address] [place] Sodium [Moles/Vol] 147 mmol/L Critically high 137-145 [facility] Comment on above: Performed By: #### BMP #### [facility] Laboratory [address], [place] [address] [place] Urea nitrogen [Mass/Vol] 53.0 mg/dL Critically high 7.0-17.0 [facility] Comment on above: Performed By: #### BMP #### [facility] Laboratory [address], [place] [address] [place] Urea nitrogen/Creatin ine [Mass ratio] 34.0 mg/mg Normal [facility] Comment on above: Performed By: #### BMP #### [facility] Laboratory [address], [place] [address] [place] FOOT LEFT 2 VWSon 06-04-2017 FOOT LEFT 2 VWS [facility] [place] [id number] Patient Name: ARTHUR YEN : 1945Sex: FAge: Race: WhiteMRN: [id number]. Location: 84Patient Status: Date: 06/04/2017 9:30:00 AMCompleted Date: 06/04/2017 09:34 AMRequesting Provider: FELIPE NINO Attending Provider: Report Copy To: Signs & Symptoms: M79.672 Pain in left foot [id number]: AthenaComments: , , Views (X-RAY, FOOT): AP, Lateral , , , Ordering Provider - FELIPE NINO MD , Exam: FOOT LEFT 2 VWSAccession #: [id number] FOOT LEFT 2 VWS 06/04/2017 9:34 AM [...] swelling Electronically signed by:Jackie Chicas. Transcribed by: [email or web address], User Resident: Electronically Signed by: JACKIE CHICAS @ 06/04/2017 11:38 AM Normal [facility] Comment on above: Order Comment: , , Views (X-RAY, FOOT): AP, Lateral , , , Ordering Provider - FELIPE NINO MD , Discharge Summaryon 05-06-19 Discharge Summary 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 [facility]. Infectious Disease was [...] 05/05/2017/12:20 P/Marilyn Almodovar, MDDate Trans: 05/06/2017 08:32 A/Genesis_JN:[id number]: Self Referred Normal [facility] BASIC METABOLIC PANELon 04-07 Calcium 8.6 mg/dL Normal 8.6-10.3 [facility] Comment on above: Order Comment: No: Do not add to previou s draw Performed By: #### 6 2586 ####[facility] [place] [address], [facility] Chloride 109 mmol/L High 98-107 [facility] Comment on above: Order Comment: No: Do not add to previou s draw Performed By: #### 6 2586 ####[facility] [place] [address], [facility] CO2 23 mmol/L Normal 21-31 [facility] Comment on above: Order Comment: No: Do not add to previou s draw Performed By: #### 6 2586 ####[facility] [place] [address], [facility] Creatinine 2.66 mg/dL High 0.60-1.20 [facility] Comment on above: Order Comment: No: Do not add to previou s draw Performed By: #### 6 2586 ####[facility] [place] [address], [facility] eGFR (black) 22 ml/min/1.73sq m Abnormal >60 [facility] Comment on above: Order Comment: No: Do not add to previou s draw Result Comment: Calc ulation may not be valid for patients over 70 years Performed By: #### 6 2586 ####[facility] [place] [address], [facility] eGFR (non-black) 18 ml/min/1.73sq m Abnormal >60 [facility] Comment on above: Order Comment: No: Do not add to previou s draw Result Comment: Calc ulation may not be valid for patients over 70 years Performed By: #### 6 2586 ####[facility] [place] [address], [facility] Glucose mass conc 223 mg/dL High 70-100 [facility] Comment on above: Order Comment: No: Do not add to previou s draw Performed By: #### 6 2586 ####[facility] [place] [address], [facility] Potassium molar conc 3.9 mmol/L Normal 3.5-5.1 [facility] Comment on above: Order Comment: No: Do not add to previou s draw Performed By: #### 6 2586 ####[facility] [place] [address], [facility] Sodium 138 mmol/L Normal 136-145 [facility] Comment on above: Order Comment: No: Do not add to previou s draw Performed By: #### 6 2586 ####[facility] Urea nitrogen 71 mg/dL High 7-25 [facility] Comment on above: Order Comment: No: Do not add to previou s draw Performed By: #### 6 2586 ####[facility] CBC COMPLETE BLOOD COUNTon 0 05-01-2017 Erythrocyte distribution width Auto Ratio (RBC) 14.8 % Normal 11.5-16.9 [facility] Comment on above: Order Comment: No: Do not add to previou s draw Performed By: #### 6 2586 ####[facility] Erythrocytes (RBC) 3.07 mill/mm3 Low 3.50-5.50 [facility] Comment on above: Order Comment: No: Do not add to previou s draw Performed By: #### 6 2586 ####[facility] Hematocrit (HCT) 26.9 % Low 36.0-48.0 [facility] Comment on above: Order Comment: No: Do not add to previou s draw Performed By: #### 6 2586 ####[facility] Hemoglobin mass conc (Bld) 8.8 g/dL Low 12.0-15.0 [facility] Comment on above: Order Comment: No: Do not add to previou s draw Performed By: #### 6 2586 ####[facility] MCH 28.8 pg Normal 24.0-32.0 [facility] Comment on above: Order Comment: No: Do not add to previou s draw Performed By: #### 6 2586 ####[facility] MCHC mass conc (RBC) 32.8 g/dL Normal 32.0-36.0 [facility] Comment on above: Order Comment: No: Do not add to previou s draw Performed By: #### 6 2586 ####[facility] MCV 87.9 fL Normal 80.0-100.0 [facility] Comment on above: Order Comment: No: Do not add to previou s draw Performed By: #### 6 2586 ####[facility] PLAT CNT 237 Thou/mm3 Normal 100-400 [facility] Comment on above: Order Comment: No: Do not add to previou s draw Performed By: #### 6 2586 ####[facility] WBC (Leukocytes) 10.1 Thou/mm3 High 4.0-10.0 [facility] Comment on above: Order Comment: No: Do not add to previou s draw Performed By: #### 6 2586 ####[facility] CPKon 05-01-2017 Creatine kinase (CK) 182 U/L Normal 30-223 [facility] Comment on above: Performed By: #### [address] ####[facility] MAGNESIUM BLOODon 05-01-2017 Magnesium 2.2 mg/dL Normal 1.9-2.7 [facility] Comment on above: Performed By: #### [id number] ####[facility] POC GLUCOSE LABon 05-01-2017 Glucose mass conc 308 mg/dL High 70-100 [facility] Comment on above: Performed By: #### [address] ####[address] [facility] [address], [facility] Glucose mass conc 285 mg/dL High 70-100 [facility] Comment on above: Performed By: #### [address] ####[address] [facility].[address] Glucose mass conc 223 mg/dL High 70-100 [facility] Comment on above: Performed By: #### [address] ####[address] [facility].[address] URIC ACID BLOODon 05-01-2017 Urate 10.3 mg/dL High 2.3-6.6 [facility] Comment on above: Performed By: #### [address] ####[address] US RENAL ECHOGRAM COMPLETEon 05-01-2017 US RENAL ECHOGRAM COMPLETE [facility] [place], [place] [id number] Patient Name: ARTHUR YEN : 1945Sex: FAge: Race: WhiteMRN: [id number]. Location: [id number] Status: IVisit #: [id number] Date: 05/01/2017 9:20:00 AMCompleted Date: 05/01/2017 12:08 PMRequesting Provider: SHAHIDA LYN Attending Provider: STANFORD SINGH Report Copy To: Signs & Symptoms: Increased CreatinineHistory: Patient history not availableComments: OtherExam: US RENAL ECHOGRAM COMPLETEAccession #: [id number] US RENAL ECHOGRAM COMPLETE 05/01/2017 12:08 PM [...] ultrasound. Electronically signed by:Polo Chaves. Transcribed by: [id number], User Resident: Electronically Signed by: POLO CHAVES @ 05/01/2017 02:36 PM Normal [facility] Comment on above: Order Comment: Other BASIC METABOLIC PANELon 04-07 Calcium 9.5 mg/dL Normal 8.6-10.3 [facility] Comment on above: Order Comment: No: Do not add to previou s draw Performed By: #### 8 5499 ####[facility] [place] [address], [facility] Chloride 108 mmol/L High 98-107 [facility] Comment on above: Order Comment: No: Do not add to previou s draw Performed By: #### 8 5499 ####[facility] [place] [address], [facility] CO2 25 mmol/L Normal 21-31 [facility] Comment on above: Order Comment: No: Do not add to previou s draw Performed By: #### 8 5499 ####[facility] [place] [address], [facility] Creatinine 2.41 mg/dL High 0.60-1.20 [facility] Comment on above: Order Comment: No: Do not add to previou s draw Performed By: #### 8 5499 ####[facility] [place] [address], [facility] eGFR (black) 24 ml/min/1.73sq m Abnormal >60 [facility] Comment on above: Order Comment: No: Do not add to previou s draw Result Comment: Calc ulation may not be valid for patients over 70 years Performed By: #### 8 5499 ####[facility] [place] [address], [facility] eGFR (non-black) 20 ml/min/1.73sq m Abnormal >60 [facility] Comment on above: Order Comment: No: Do not add to previou s draw Result Comment: Calc ulation may not be valid for patients over 70 years Performed By: #### 8 5499 ####[facility] [place] [address], [facility] Glucose mass conc 162 mg/dL High 70-100 [facility] Comment on above: Order Comment: No: Do not add to previou s draw Performed By: #### 8 5499 ####[facility] [place] [address], [place] Potassium molar conc 3.9 mmol/L Normal 3.5-5.1 [facility] Comment on above: Order Comment: No: Do not add to previou s draw Performed By: #### 8 5499 ####[facility] [place] [address], [place] Sodium 139 mmol/L Normal 136-145 [facility] Comment on above: Order Comment: No: Do not add to previou s draw Performed By: #### 8 5499 ####[facility] [place] [address], [place] Urea nitrogen 64 mg/dL High 7-25 [facility] Comment on above: Order Comment: No: Do not add to previou s draw Performed By: #### 8 5499 ####[facility] CBC COMPLETE BLOOD COUNTon 0 04-30-2017 Erythrocyte distribution width Auto Ratio (RBC) 14.0 % Normal 11.5-16.9 [facility] Comment on above: Order Comment: No: Do not add to previou s draw Performed By: #### 8 5499 ####[facility] [facility] Erythrocytes (RBC) 3.64 mill/mm3 Normal 3.50-5.50 [facility] Comment on above: Order Comment: No: Do not add to previou s draw Performed By: #### 8 5499 ####[facility] Hematocrit (HCT) 32.0 % Low 36.0-48.0 [facility] Comment on above: Order Comment: No: Do not add to previou s draw Performed By: #### 8 5499 ####[facility] Hemoglobin mass conc (Bld) 10.5 g/dL Low 12.0-15.0 [facility] Comment on above: Order Comment: No: Do not add to previou s draw Performed By: #### 8 5499 ####[facility] [place] [address], [facility] MCH 29.0 pg Normal 24.0-32.0 [facility] Comment on above: Order Comment: No: Do not add to previou s draw Performed By: #### 8 5499 ####[facility] [place] [address], [facility] MCHC mass conc (RBC) 33.0 g/dL Normal 32.0-36.0 [facility] Comment on above: Order Comment: No: Do not add to previou s draw Performed By: #### 8 5499 ####[facility] MCV 87.9 fL Normal 80.0-100.0 [facility] Comment on above: Order Comment: No: Do not add to previou s draw Performed By: #### 8 5499 ####[facility] PLAT CNT 312 Thou/mm3 Normal 100-400 [facility] Comment on above: Order Comment: No: Do not add to previou s draw Performed By: #### 8 5499 ####[facility] WBC (Leukocytes) 16.1 Thou/mm3 High 4.0-10.0 [facility] Comment on above: Order Comment: No: Do not add to previou s draw Performed By: #### 8 5499 ####[facility] [facility].[address] Operative Reporton 8 Operative Report MR#: [id number] [facility] Pt. 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 About 2weeks ago, she had a superficial debridement for removal of a callosity ofthe toe by her immigration patrol inspector, after which she started developing a redness [...] 1st metatarsal. The bone wasdissected using a Gross elevator and the line of the osteotomy [...] 04/29/2017/12:56 P/Felipe Nino, MDDate Trans: 04/29/2017 11:30 P/[id number]:[id number] Normal [facility] POC GLUCOSE LABon 04-30-2017 Glucose mass conc 319 mg/dL High 70-100 [facility] Comment on above: Performed By: #### [id number] ####[facility] [place] [address], [facility] Glucose mass conc 226 mg/dL High 70-100 [facility] Comment on above: Performed By: #### 88393 ####[facility] [place] [address], [facility] Glucose mass conc 316 mg/dL High 70-100 [facility] Comment on above: Performed By: #### 99253 ####[facility] [place] [address], [facility] Glucose mass conc 215 mg/dL High 70-100 [facility] Comment on above: Performed By: #### 88140 ####[facility] [facility] [place] [address], [facility] BASIC METABOLIC PANELon 04-07 Calcium 9.8 mg/dL Normal 8.6-10.3 [facility] Comment on above: Order Comment: No: Do not add to previou s draw Performed By: #### 0 0071 ####[facility] [place] [address], [facility] Chloride 105 mmol/L Normal 98-107 [facility] Comment on above: Order Comment: No: Do not add to previou s draw Performed By: #### 0 0071 ####[facility] [place] [address], [facility] CO2 27 mmol/L Normal 21-31 [facility] Comment on above: Order Comment: No: Do not add to previou s draw Performed By: #### 0 0071 ####[facility] [place] [address], [facility] Creatinine 2.11 mg/dL High 0.60-1.20 [facility] Comment on above: Order Comment: No: Do not add to previou s draw Performed By: #### 0 0071 ####[facility] [place] [address], [facility] eGFR (black) 28 ml/min/1.73sq m Abnormal >60 [facility] Comment on above: Order Comment: No: Do not add to previou s draw Result Comment: Calc ulation may not be valid for patients over 70 years Performed By: #### 0 0071 ####[facility] [place] [address], [facility] eGFR (non-black) 23 ml/min/1.73sq m Abnormal >60 [facility] Comment on above: Order Comment: No: Do not add to previou s draw Result Comment: Calc ulation may not be valid for patients over 70 years Performed By: #### 0 0071 ####[facility] [place] [address], [facility] Glucose mass conc 127 mg/dL High 70-100 [facility] Comment on above: Order Comment: No: Do not add to previou s draw Performed By: #### 0 0071 ####[facility] [place] [address], [facility] Potassium molar conc 4.3 mmol/L Normal 3.5-5.1 [facility] Comment on above: Order Comment: No: Do not add to previou s draw Performed By: #### 0 0071 ####[facility] [place] [address], [facility] Sodium 139 mmol/L Normal 136-145 [facility] Comment on above: Order Comment: No: Do not add to previou s draw Performed By: #### 0 0071 ####[facility] Urea nitrogen 56 mg/dL High 7-25 [facility] Comment on above: Order Comment: No: Do not add to previou s draw Performed By: #### 0 0071 ####[facility] CBC COMPLETE BLOOD COUNTon 0 - Erythrocyte distribution width Auto Ratio (RBC) 13.8 % Normal 11.5-16.9 [facility] Comment on above: Order Comment: No: Do not add to previou s draw Performed By: #### 0 0071 ####[facility] Erythrocytes (RBC) 3.53 mill/mm3 Normal 3.50-5.50 [facility] Comment on above: Order Comment: No: Do not add to previou s draw Performed By: #### 0 0071 ####[facility] [facility] Hematocrit (HCT) 31.0 % Low 36.0-48.0 [facility] Comment on above: Order Comment: No: Do not add to previou s draw Performed By: #### 0 0071 ####[facility] Hemoglobin mass conc (Bld) 10.3 g/dL Low 12.0-15.0 [facility] Comment on above: Order Comment: No: Do not add to previou s draw Performed By: #### 0 0071 ####[facility] MCH 29.2 pg Normal 24.0-32.0 [facility] Comment on above: Order Comment: No: Do not add to previou s draw Performed By: #### 0 0071 ####[address] [address] MCHC mass conc (RBC) 33.2 g/dL Normal 32.0-36.0 [facility] Comment on above: Order Comment: No: Do not add to previou s draw Performed By: #### 0 0071 ####[address] MCV 87.8 fL Normal 80.0-100.0 [facility] Comment on above: Order Comment: No: Do not add to previou s draw Performed By: #### 0 0071 ####[address] PLAT CNT 311 Thou/mm3 Normal 100-400 [facility] Comment on above: Order Comment: No: Do not add to previou s draw Performed By: #### 0 0071 ####[address] WBC (Leukocytes) 15.1 Thou/mm3 High 4.0-10.0 [facility] Comment on above: Order Comment: No: Do not add to previou s draw Performed By: #### 0 0071 ####[address] CPKon 04-29-2017 Creatine kinase (CK) 93 U/L Normal 30-223 [facility] Comment on above: Performed By: #### [id number] ####[address] FOOT LEFT 2 VWSon 04-29-2017 FOOT LEFT 2 VWS [facility] [address] [place] [id number] Patient Name: ARTHUR YEN : 1945Sex: FAge: Race: WhiteMRN: [id number]. Location: [id number] Status: IVisit #: [id number] Date: 04/29/2017 10:45:00 AMCompleted Date: 04/29/2017 12:36 PMRequesting Provider: FELIPE NINO Attending Provider: FELIPE NINO Report Copy To: Signs & Symptoms: intra-op left great toe amputationHistory: intra-op left great toe amputationComments: Exam: FOOT LEFT 2 VWSAccession #: [id number] FOOT LEFT 2 VWS 04/29/2017 12:36 PM [...] obtained for documentation purposes Electronically signed by:Cristal Ponce. Transcribed by: [id number], User Resident: Electronically Signed by: CRISTAL PONCE @ 04/29/2017 03:00 PM Normal [facility] HEMOGLOBIN A1Con 04-29-2017 Glucose mass conc 148 mg/dL High 70-126 [facility] Comment on above: Order Comment: No: Do not add to previou s draw Performed By: #### 8 5499 ####[facility] [place] [address], [facility] Hemoglobin A1c/Hemoglobin.t otal mass fraction (Bld) 6.8 % High 4.0-6.0 [facility] Comment on above: Order Comment: No: Do not add to previou s draw Performed By: #### 8 5499 ####[facility] [place] [address], [facility] POC GLUCOSE LABon 04-29-2017 Glucose mass conc 345 mg/dL High 70-100 [facility] Comment on above: Performed By: #### 01485 ####[facility] [place] [address], [facility] Glucose mass conc 218 mg/dL High 70-100 [facility] Comment on above: Performed By: #### 51410 ####[facility] [place] [address], [facility] Glucose mass conc 174 mg/dL High 70-100 [facility] Comment on above: Performed By: #### 03448 ####[facility] [place] [address], [facility] Glucose mass conc 133 mg/dL High 70-100 [facility] Comment on above: Performed By: #### 98566 ####[facility] [place] [address], [place] Glucose mass conc 121 mg/dL High 70-100 [facility] Comment on above: Performed By: #### 82412 ####[facility] [place] [address], [facility] POC GLUCOSE LABon 04-28-2017 Glucose mass conc 198 mg/dL High 70-100 [facility] Comment on above: Performed By: #### 68371 ####[facility] [place] [address], [facility] Glucose mass conc 203 mg/dL High 70-100 [facility] Comment on above: Performed By: #### 16278 ####[facility] [facility] [place] [address], [facility] Glucose mass conc 214 mg/dL High 70-100 [facility] Comment on above: Performed By: #### 63157 ####[facility] [facility] [place] [address], [facility] Glucose mass conc 110 mg/dL High 70-100 [facility] Comment on above: Performed By: #### 95131 ####[address] [place] [address], [facility] POC GLUCOSE LABon 04-27-2017 Glucose mass conc 314 mg/dL High 70-100 [facility] Comment on above: Performed By: #### 85325 ####[address] [place] [address], [facility] Glucose mass conc 214 mg/dL High 70-100 [facility] Comment on above: Performed By: #### 36692 ####[address] [place] [address], [facility] Glucose mass conc 201 mg/dL High 70-100 [facility] Comment on above: Performed By: #### 99730, 92235 ####[place] [address], [facility] Glucose mass conc 98 mg/dL Normal 70-100 [facility] Comment on above: Performed By: #### 15914, 76542 ####[place] [address], [facility] BASIC METABOLIC PANELon 04-07 Calcium 9.4 mg/dL Normal 8.6-10.3 [facility] Comment on above: Order Comment: No: Do not add to previou s draw Performed By: #### 5 610, 92562 ####[facility] [place] [address], [facility] Chloride 103 mmol/L Normal 98-107 [facility] Comment on above: Order Comment: No: Do not add to previou s draw Performed By: #### 5 610, 29870 ####[facility] [place] [address], [place] CO2 27 mmol/L Normal 21-31 [facility] Comment on above: Order Comment: No: Do not add to previou s draw Performed By: #### 5 610, 36448 ####[facility] [place] [address], [facility] Creatinine 1.96 mg/dL High 0.60-1.20 [facility] Comment on above: Order Comment: No: Do not add to previou s draw Performed By: #### 5 610, 23910 ####[facility] [place] [address], [facility] eGFR (black) 30 ml/min/1.73sq m Abnormal >60 [facility] Comment on above: Order Comment: No: Do not add to previou s draw Result Comment: Calc ulation may not be valid for patients over 70 years Performed By: #### 5 610, 16398 ####[facility] [place] [address], [facility] eGFR (non-black) 25 ml/min/1.73sq m Abnormal >60 [facility] Comment on above: Order Comment: No: Do not add to previou s draw Result Comment: Calc ulation may not be valid for patients over 70 years Performed By: #### 5 610, 22769 ####[facility] [id number], [facility] Glucose mass conc 153 mg/dL High 70-100 [facility] Comment on above: Order Comment: No: Do not add to previou s draw Performed By: #### 5 610, 88929 ####[facility] [place] [address], [facility] Potassium molar conc 4.0 mmol/L Normal 3.5-5.1 [facility] Comment on above: Order Comment: No: Do not add to previou s draw Performed By: #### 5 610, 28650 ####[facility] [place] [address], [facility] Sodium 140 mmol/L Normal 136-145 [facility] Comment on above: Order Comment: No: Do not add to previou s draw Performed By: #### 5 610, 59527 ####[facility] [place] [address], [facility] Urea nitrogen 53 mg/dL High 7-25 [facility] Comment on above: Order Comment: No: Do not add to previou s draw Performed By: #### 5 610, 49920 ####[facility] [place] [address], [facility] CBC COMPLETE BLOOD COUNTon 0 - Erythrocyte distribution width Auto Ratio (RBC) 13.5 % Normal 11.5-16.9 [facility] Comment on above: Order Comment: No: Do not add to previou s draw Performed By: #### 5 610, 88184 ####[facility] [place] [address], [place] Erythrocytes (RBC) 3.43 mill/mm3 Low 3.50-5.50 [facility] Comment on above: Order Comment: No: Do not add to previou s draw Performed By: #### 5 610, 03473 ####[facility] [place] [address], [place] Hematocrit (HCT) 30.2 % Low 36.0-48.0 [facility] Comment on above: Order Comment: No: Do not add to previou s draw Performed By: #### 5 6100, 09506 ####[facility] [place] [address], [facility] Hemoglobin mass conc (Bld) 9.9 g/dL Low 12.0-15.0 [facility] Comment on above: Order Comment: No: Do not add to previou s draw Performed By: #### 5 6100, 86709 ####[facility] MCH 28.9 pg Normal 24.0-32.0 [facility] Comment on above: Order Comment: No: Do not add to previou s draw Performed By: #### 5 6100, 37867 ####[facility] MCHC mass conc (RBC) 32.8 g/dL Normal 32.0-36.0 [facility] Comment on above: Order Comment: No: Do not add to previou s draw Performed By: #### 5 6100, 47940 ####[facility] MCV 88.0 fL Normal 80.0-100.0 [facility] Comment on above: Order Comment: No: Do not add to previou s draw Performed By: #### 5 6100, 41050 ####[facility] [place] [address], [facility] PLAT CNT 353 Thou/mm3 Normal 100-400 [facility] Comment on above: Order Comment: No: Do not add to previou s draw Performed By: #### 5 610, 55061 ####[facility] [place] [address], [facility] WBC (Leukocytes) 7.1 Thou/mm3 Normal 4.0-10.0 [facility] Comment on above: Order Comment: No: Do not add to previou s draw Performed By: #### 5 6101, 83152 ####[address] [place] [address], [facility] POC GLUCOSE LABon 04-26-2017 Glucose mass conc 292 mg/dL High 70-100 [facility] Comment on above: Performed By: #### 68447, 50948 ####[facility] [address] [place] [address], [facility] Glucose mass conc 276 mg/dL High 70-100 [facility] Comment on above: Performed By: #### 86719, 73140 ####[address] [place] [address], [facility] Glucose mass conc 179 mg/dL High 70-100 [facility] Comment on above: Performed By: #### 66908, 36814 ####[address] [place] [address], [facility] Glucose mass conc 156 mg/dL High 70-100 [facility] Comment on above: Performed By: #### 92071, 87107 ####[place] [address], [facility] BASIC METABOLIC PANELon 04-07 Calcium 9.4 mg/dL Normal 8.6-10.3 [facility] Comment on above: Order Comment: No: Do not add to previou s draw Performed By: #### 5 6101, 47170 ####[address] [place] [address], [facility] Chloride 105 mmol/L Normal 98-107 [facility] Comment on above: Order Comment: No: Do not add to previou s draw Performed By: #### 5 6101, 84165 ####[address] [place] [address], [facility] CO2 30 mmol/L Normal 21-31 [facility] Comment on above: Order Comment: No: Do not add to previou s draw Performed By: #### 5 610, 06665 ####[facility] Creatinine 1.81 mg/dL High 0.60-1.20 [facility] Comment on above: Order Comment: No: Do not add to previou s draw Performed By: #### 5 610, 63150 ####[facility] eGFR (black) 33 ml/min/1.73sq m Abnormal >60 [facility] Comment on above: Order Comment: No: Do not add to previou s draw Result Comment: Calc ulation may not be valid for patients over 70 years Performed By: #### 5 610, 60043 ####[facility] eGFR (non-black) 27 ml/min/1.73sq m Abnormal >60 [facility] Comment on above: Order Comment: No: Do not add to previou s draw Result Comment: Calc ulation may not be valid for patients over 70 years Performed By: #### 5 610, 44639 ####[facility] Glucose mass conc 80 mg/dL Normal 70-100 [facility] Comment on above: Order Comment: No: Do not add to previou s draw Performed By: #### 5 610, 95093 ####[facility] [place] [address], [facility] Potassium molar conc 4.1 mmol/L Normal 3.5-5.1 [facility] Comment on above: Order Comment: No: Do not add to previou s draw Performed By: #### 5 610, 00806 ####[facility] [place] [address], [facility] Sodium 143 mmol/L Normal 136-145 [facility] Comment on above: Order Comment: No: Do not add to previou s draw Performed By: #### 5 610, 25414 ####[facility] [place] [address], [facility] Urea nitrogen 53 mg/dL High 7-25 [facility] Comment on above: Order Comment: No: Do not add to previou s draw Performed By: #### 5 6100, 23887 ####[facility] CBC COMPLETE BLOOD COUNTon 0 - Erythrocyte distribution width Auto Ratio (RBC) 13.7 % Normal 11.5-16.9 [facility] Comment on above: Order Comment: No: Do not add to previou s draw Performed By: #### 5 6100, 94915 ####[facility] Erythrocytes (RBC) 3.31 mill/mm3 Low 3.50-5.50 [facility] Comment on above: Order Comment: No: Do not add to previou s draw Performed By: #### 5 6100, 07008 ####[facility] Hematocrit (HCT) 29.0 % Low 36.0-48.0 [facility] Comment on above: Order Comment: No: Do not add to previou s draw Performed By: #### 5 610, 00021 ####[facility] [place] [address], [facility] Hemoglobin mass conc (Bld) 9.6 g/dL Low 12.0-15.0 [facility] Comment on above: Order Comment: No: Do not add to previou s draw Performed By: #### 5 610, 08860 ####[facility] MCH 29.1 pg Normal 24.0-32.0 [facility] Comment on above: Order Comment: No: Do not add to previou s draw Performed By: #### 5 610, 04684 ####[facility] [place] [address], [facility] MCHC mass conc (RBC) 33.2 g/dL Normal 32.0-36.0 [facility] Comment on above: Order Comment: No: Do not add to previou s draw Performed By: #### 5 610, 47016 ####[place] [place] [facility].[address] MCV 87.6 fL Normal 80.0-100.0 [facility] Comment on above: Order Comment: No: Do not add to previou s draw Performed By: #### 5 610, 80357 ####[facility] PLAT CNT 350 Thou/mm3 Normal 100-400 [facility] Comment on above: Order Comment: No: Do not add to previou s draw Performed By: #### 5 610, 70436 ####[facility] WBC (Leukocytes) 6.5 Thou/mm3 Normal 4.0-10.0 [facility] Comment on above: Order Comment: No: Do not add to previou s draw Performed By: #### 5 610, 13870 ####[facility] POC GLUCOSE LABon 04-25-2017 Glucose mass conc 103 mg/dL High 70-100 [facility] Comment on above: Performed By: #### 91314, 00641 ####[facility] [place] [address], [facility] Glucose mass conc 64 mg/dL Low 70-100 [facility] Comment on above: Performed By: #### 89415, 47763 ####[address] [facility] [place] [address], [facility] Glucose mass conc 211 mg/dL High 70-100 [facility] Comment on above: Performed By: #### 79583, 69041 ####[facility] [address] [place] [address], [facility] Glucose mass conc 89 mg/dL Normal 70-100 [facility] Comment on above: Performed By: #### 78277, 34204 ####[facility] [address] [place] [address], [facility] ALBUMIN BLOODon 04-24-2017 Albumin 3.5 g/dL Normal 3.5-5.7 [facility] Comment on above: Order Comment: No: Do not add to previou s draw Performed By: #### 5 6101, 48878 ####[address] [place] [address], [facility] POC GLUCOSE LABon 04-24-2017 Glucose mass conc 267 mg/dL High 70-100 [facility] Comment on above: Performed By: #### 72064, 23439 ####[facility] [address] [place] [address], [facility] Glucose mass conc 140 mg/dL High 70-100 [facility] Comment on above: Performed By: #### 89082, 38044 ####[facility] [address] [place] [address], [place] Glucose mass conc 130 mg/dL High 70-100 [facility] Comment on above: Performed By: #### 66130, 50152 ####[facility] [address] [place] [address], [place] Glucose mass conc 122 mg/dL High 70-100 [facility] Comment on above: Performed By: #### 65146, 04320 ####[facility] [place] [address], [facility] TRANSFERRINon 04-24-2017 Transferrin 177 mg/dL Low 203-362 [facility] Comment on above: Order Comment: No: Do not add to previou s draw Performed By: #### 5 6101, 82152 ####[facility] [place] [address], [facility] POC GLUCOSE LABon 04-23-2017 Glucose mass conc 212 mg/dL High 70-100 [facility] Comment on above: Performed By: #### 73869 ####[facility] [place] [address], [facility] Glucose mass conc 226 mg/dL High 70-100 [facility] Comment on above: Performed By: #### 03398 ####[facility] [place] [address], [facility] Glucose mass conc 202 mg/dL High 70-100 [facility] Comment on above: Performed By: #### 44756 ####[facility] [place] [address], [facility] Glucose mass conc 200 mg/dL High 70-100 [facility] Comment on above: Performed By: #### 77185 ####[facility] [place] [address], [facility] APTTon 04-22-2017 aPTT 36.5 s High 25.0-35.0 [facility] Comment on above: Order Comment: No: Do [...] THIS PURPOSE. Performed By: #### 5 6101, 24815 ####[facility] [facility].[address] BASIC METABOLIC PANELon 04-06 Calcium 9.6 mg/dL Normal 8.6-10.3 [facility] Comment on above: Order Comment: No: Do not add to previou s draw Performed By: #### 0 0071 ####[facility] [facility].[address] Chloride 102 mmol/L Normal 98-107 [facility] Comment on above: Order Comment: No: Do not add to previou s draw Performed By: #### 0 0071 ####[place] [address] [facility].[address] CO2 27 mmol/L Normal 21-31 [facility] Comment on above: Order Comment: No: Do not add to previou s draw Performed By: #### 0 0071 ####[place] [address] [facility].[address] Creatinine 1.90 mg/dL High 0.60-1.20 [facility] Comment on above: Order Comment: No: Do not add to previou s draw Performed By: #### 0 0071 ####[facility] [facility].[address] eGFR (black) 31 ml/min/1.73sq m Abnormal >60 [facility] Comment on above: Order Comment: No: Do not add to previou s draw Result Comment: Calc ulation may not be valid for patients over 70 years Performed By: #### 0 0071 ####[facility] eGFR (non-black) 26 ml/min/1.73sq m Abnormal >60 [facility] Comment on above: Order Comment: No: Do not add to previou s draw Result Comment: Calc ulation may not be valid for patients over 70 years Performed By: #### 0 0071 ####[facility] [place] [address], [facility] Glucose mass conc 122 mg/dL High 70-100 [facility] Comment on above: Order Comment: No: Do not add to previou s draw Performed By: #### 0 0071 ####[facility] [place] [address], [facility] Potassium molar conc 3.9 mmol/L Normal 3.5-5.1 [facility] Comment on above: Order Comment: No: Do not add to previou s draw Performed By: #### 0 0071 ####[facility] [place] [address], [facility] Sodium 137 mmol/L Normal 136-145 [facility] Comment on above: Order Comment: No: Do not add to previou s draw Performed By: #### 0 0071 ####[facility] [place] [address], [facility] Urea nitrogen 64 mg/dL High 7-25 [facility] Comment on above: Order Comment: No: Do not add to previou s draw Performed By: #### 0 0071 ####[facility] CBC COMPLETE BLOOD COUNTon 0 - Erythrocyte distribution width Auto Ratio (RBC) 13.3 % Normal 11.5-16.9 [facility] Comment on above: Order Comment: No: Do not add to previou s draw Performed By: #### 5 0608 ####[facility] [place] [address], [facility] Erythrocytes (RBC) 3.57 mill/mm3 Normal 3.50-5.50 [facility] Comment on above: Order Comment: No: Do not add to previou s draw Performed By: #### 5 0608 ####[facility] Hematocrit (HCT) 31.1 % Low 36.0-48.0 [facility] Comment on above: Order Comment: No: Do not add to previou s draw Performed By: #### 5 0608 ####[facility] Hemoglobin mass conc (Bld) 10.4 g/dL Low 12.0-15.0 [facility] Comment on above: Order Comment: No: Do not add to previou s draw Performed By: #### 5 0608 ####[facility] MCH 29.3 pg Normal 24.0-32.0 [facility] Comment on above: Order Comment: No: Do not add to previou s draw Performed By: #### 5 0608 ####[facility] MCHC mass conc (RBC) 33.6 g/dL Normal 32.0-36.0 [facility] Comment on above: Order Comment: No: Do not add to previou s draw Performed By: #### 5 0608 ####[facility] MCV 87.1 fL Normal 80.0-100.0 [facility] Comment on above: Order Comment: No: Do not add to previou s draw Performed By: #### 5 0608 ####[facility] PLAT CNT 375 Thou/mm3 Normal 100-400 [facility] Comment on above: Order Comment: No: Do not add to previou s draw Performed By: #### 5 0608 ####[facility] WBC (Leukocytes) 7.7 Thou/mm3 Normal 4.0-10.0 [facility] Comment on above: Order Comment: No: Do not add to previou s draw Performed By: #### 5 0608 ####[facility] POC GLUCOSE LABon 04-22-2017 Glucose mass conc 128 mg/dL High 70-100 [facility] Comment on above: Performed By: #### 33691 ####[address] PROTHROMBIN TIMEon 8 INR Coag RelTime (PPP) 1.09 {INR} Normal 0.91-1.16 [facility] Comment on above: Order Comment: No: Do [...] OF ACTION, CLINICALEFFECTIVENESS, AND OPTIMAL THERAPEUTIC RANGE. [id number]. Performed By: #### 5 6101, 76540 ####[facility] [facility] [place] [id number] [place] [address] Prothrombin time (PT) Coag time (PPP) 14.2 s Normal 12.3-14.8 [facility] Comment on above: Order Comment: No: Do not add to previou s draw Result Comment: ALL RESULTS MUST BE INTERPRETED WITH RESPECT TO BLOOD DRAWING ARTIFACTOR DILUTION ERROR OF ANTICOAGULANT AT THE TIME OF SAMPLING. Performed By: #### [id number] ####[facility].[address] TYPE AND SCREENon 04-22-2017 ABO INTERPRETATION O Normal [facility] Comment on above: Performed By: #### [id number] ####[facility].[address] ANTIBODY SCREEN Negative Normal [facility] Comment on above: Performed By: #### [id number] ####[facility] [place] [address], [facility] RH INTERPRETATION Positive Normal [facility] Comment on above: Performed By: #### [id number] ####[facility].[address] Vital Signs Date Time Vital Sign Value Performing Clinician Facility 08-13-2022 14:45-0400 Body height 152.4 cm [facility] Other [employer] Other 08-13-2022 14:45-0400 Body mass index (BMI) [Ratio] 33.47 kg/m2 [facility] Other [employer] Other 08-13-2022 14:45-0400 Body weight 77.75 kg [facility] Other [employer] Other 08-13-2022 14:45-0400 Diastolic blood pressure 67 mm[Hg] Micaela Scally Other [employer] Other 08-13-2022 14:45-0400 Respiratory rate 18 /min Micaela Scally Other [employer] Other 08-13-2022 14:45-0400 SaO2% (BldA) [Mass fraction] 96 % Micaela Scally Other [employer] Other 08-13-2022 14:45-0400 Systolic blood pressure 110 mm[Hg] Micaela Scally Other [employer] Other 06-18-2022 14:00-0400 Body height 152.4 cm Micaela Scally Other [employer] Other 06-18-2022 14:00-0400 Body mass index (BMI) [Ratio] 33.24 kg/m2 Micaela Scally Other [employer] Other 06-18-2022 14:00-0400 Body weight 77.2 kg Micaela Scally Other [employer] Other 06-18-2022 14:00-0400 Diastolic blood pressure 58 mm[Hg] Micaela Scally Other [employer] Other 06-18-2022 14:00-0400 Respiratory rate 18 /min Micaela Scally Other [employer] Other 06-18-2022 14:00-0400 SaO2% (BldA) [Mass fraction] 97 % Micaela Scally Other [employer] Other 06-18-2022 14:00-0400 Systolic blood pressure 111 mm[Hg] Micaela Prince Other [facility] [employer] Other 05-21-2022 14:00-0500 Body height 152.4 cm Micaela Prince Other [facility] [employer] Other Encounters Encounter Date Encounter Type Care Provider Facility Start: 05-13-2023 End: 05-14-2023 ambulatory THERESA VALLES [facility] Start: 05-13-2023 External Result Encounter Theresa Valles MD Work Phone: [facility] External [facility] Unsolicited Start: 05-13-2023 External Result Encounter Theresa Valles MD Work Phone: [facility] External [facility] Unsolicited Start: 05-13-2023 Orders Only Theresa butler MD Work Phone: [facility]FACE[facility]ONLY [facility] Comment on above: Chronic kidney disea se, stage 4 (severe) ([facility]) Start: 05-07-2023 End: 05-07-2023 ambulatory THERESA VALLES Not Available Start: 05-07-2023 Bamboo flowsheet Theresa eller MD Work Phone: [facility] Start: 05-07-2023 Bamboo flowsheet Theresa eller MD Work Phone: [facility] Start: 05-04-2023 End: 05-05-2023 ambulatory EFRAIN TREVINO [facility] Start: 04-28-2023 End: 04-29-2023 ambulatory KARTHIK DONALD ACKERMAN [facility] Start: 04-27-2023 End: 04-28-2023 ambulatory EFRAIN TREVINO [facility] Start: 04-20-2023 End: 04-21-2023 ambulatory EFRAIN TREVINO [facility] Start: 04-13-2023 End: 04-14-2023 ambulatory EFRAIN Librado TREVINO [facility] Start: 04-08-2023 End: 04-09-2023 ambulatory [facility] Start: 04-07-2023 End: 04-08-2023 ambulatory [facility] Start: 03-31-2023 Telephone encounter Micaela patel [facility] Start: 03-31-2023 End: 04-01-2023 ambulatory [facility] [employer] Other Start: 03-23-2023 End: 03-24-2023 ambulatory [facility] Start: 02-20-2023 Orders Only Prince Trujillo MD Work Phone: Cardiology Comment on above: S/P MVR (mitral valv e replacement) (Primary Dx) Start: 11-05-2022 End: 11-05-2022 ambulatory Micaela Prince Other [employer] Other Start: 11-05-2022 Telephone encounter Micaela patel [facility] Start: 10-20-2022 End: 10-20-2022 ambulatory Micaela Prince Other [employer] Other Start: 10-20-2022 Telephone encounter Micaela patel [facility] Start: 08-13-2022 (DM) Diabetes Micaela Tipton ds [facility] Start: 08-13-2022 End: 08-13-2022 ambulatory Theresa Valles [employer] [facility] [employer] Other Start: 07-30-2022 Orders Only Prince Trujillo MD Work Phone: Cardiology Comment on above: Mixed hyperlipidemia (Primary Dx) Hx of mitral valve r eplacement (Primary Dx) Start: 06-20-2022 End: 06-20-2022 ambulatory Micaela Prince Other [employer] Other Start: 06-20-2022 Telephone encounter Micaela patel [facility] Start: 06-18-2022 (DM) Diabetes Micaela Tipton [facility] Start: 06-18-2022 End: 06-18-2022 ambulatory Micaela Prince Other [employer] Other Start: 05-21-2022 End: 05-21-2022 ambulatory Micaela Prince Other [employer] Other Start: 05-21-2022 Diabetic care education Micaela Dhillon [facility] Start: 10-16-2021 End: 10-16-2021 Subsequent hospital visit by physician Xr Chest Main J1 Work Phone: Radiology Comment on above: Coronary artery dise ase involving [place] coronary artery of [place] heart without angina pectoris [I25.10] Start: 04-15-2021 End: 04-15-2021 ambulatory CHARLEY QUINTERO Facility:[facility] Start: 09-15-2020 End: 09-15-[address] THERESA VALLES Facility:[facility] Start: 09-08-2020 End: 09-08-[address] THERESA VALLES Facility: Start: 06-04-2017 End: 06-05-2017 Ambulatory FELIPE NINO Facility:[facility] Start: 04-22-2017 End: 05-01-2017 Evaluation and management of inpatient STANFORD SINGH Facility:[facility] Procedures Date Procedure Procedure Detail Performing [...] Td Vaccines (3 - Td or Tdap) [facility] Start: 06-24-2028 Urine microalbumin profile [facility] Start: 06-17-2023 Glaucoma screening Diabetes: R etinopathy Screening [facility] Start: 05-13-2023 End: 05-13-2024 Comprehensive metabolic 2000 panel - Serum or Plasma Comprehensive metabolic panel Lab Routine Chronic kidney disease, stage 4 (severe) (CMS-HCC) Expected: 05/13/2023, Expires: 05/13/2024 [facility] Work Phone: Comment on above: Expected: 05/13/2023 , Expires: 05/13/2024 Start: 05-07-2023 End: 05-07-2023 Patient encounter procedure 05/07/2023 2:00 PM EST Office Visit [facility] [address] [place] [address] Theresa Valles MD [address] [place] [address] Type 2 diabetes mellitus with [...] (severe) (N18.4); Atrial flutter, unspecified type (CMS/HCC) [facility] Comment on above: Type 2 diabetes nata [...] gangrene, with long-term current use of insulin ([facility]); Chronic respiratory failure with hypoxia (J96.11); Chronic kidney disease, stage 4 (severe) (N18.4); Atrial flutter, unspecified type ([facility]/HCC) Start: 03-31-2023 Hemoglobin A1c/Hemoglobin.total in Blood HbA1C [facility] Start: 03-03-2023 Adult BMI Screening Adult BMI Screen ing [facility] Start: 02-20-2023 End: 05-22-2023 Basic metabolic 2000 panel - Serum or Plasma BASIC METABOLIC PNL Lab Routine S/P MVR (mitral valve replacement) Expected: 02/20/2023, Expires: 05/22/2023 [facility] Work Phone: Comment on above: Expected: 02/20/2023 , Expires: 05/22/2023 Start: 12-30-2022 Hemoglobin A1c measurement Diabetes: Hemoglobin A1C [facility] Start: 12-19-2022 End: 12-27-2022 Basic metabolic 2000 panel - Serum or Plasma BASIC METABOLIC PNL Lab Routine Hx of mitral valve replacement Expected: 12/19/2022, Expires: 12/27/2022 [facility] Work Phone: Comment on above: Expected: 12/19/2022 , Expires: 12/27/2022 Start: 12-05-2022 Covid-19 Vaccine ( season) Covid-19 Vaccine () [facility] Start: 12-05-2022 Influenza vaccination C [facility] Start: 10-16-2022 BP CONTROLLED (<130/80) BP CONTROLLE D (<130/80) [facility] Start: 10-16-2022 HEMOGLOBIN/HEMATOCRIT HEMOGLOBIN/HEM ATOCRIT [facility] Start: 10-16-2022 Hepatitis B surface antibody level LDL CHOLESTEROL [facility] Start: 10-16-2022 SERUM CREATININE SERUM CREATININE Cl [facility] Start: 07-30-2022 End: 09-29-2022 CBC panel - Blood by Automated count CBC Lab Routine Mixed hyperlipidemia Expected: 07/30/2022, Expires: 09/29/2022 [facility] Work Phone: Comment on above: Expected: 07/30/2022 , Expires: 09/29/2022 Start: 07-30-2022 End: 09-29-2022 Lipid 1996 panel - Serum or Plasma LIPID PANEL BASIC Lab Routine Mixed hyperlipidemia Expected: 07/30/2022, Expires: 09/29/2022 [facility] Work Phone: Comment on above: Expected: 07/30/2022 , Expires: 09/29/2022 Start: 2022 Tobacco Screening Tobacco Screening [facility] Start: 04-06-2022 ADVANCE DIRECTIVE DISCUSSION ADVANCE DIRECTIVE DISCUSSION [facility] Start: 04-06-2022 DEPRESSION ASSESSMENT DEPRESSION ASS ESSMENT [facility] Start: 12-05-2021 Influenza vaccination INFLUENZA (#1) [facility] Start: 10-30-2021 Hemoglobin A1c/Hemoglobin.total in Blood HBA1C [facility] Start: 04-06-2021 ADVANCE DIRECTIVE DISCUSSION ADVANCE DIRECTIVE DISCUSSION [facility] Start: 02-01-2021 Medicare Annual Well ness (AWV) Medicare Annual Wellness (AWV) [facility] Start: 10-29-2020 COVID-19 VACCINE (3 - Booster for Moderna series) COVID-19 VACCINE (3 - Booster for Moderna series) [facility] Start: 07-27-2020 COVID-19 VACCINE (3 - Booster for Moderna series) COVID-19 VACCINE (3 - Booster for Moderna series) [facility] Start: 11-08-2012 Administration of varicella zoster vaccine Zoster (Shingles) Vaccine (2 of 3) [facility] Start: 11-08-2012 Shingrix Vaccine (2 of 3) Shingrix Vaccine (2 of 3) [facility] Start: 2009 BONE DENSITY BONE DENSITY [facility] Start: 2009 Bone Density Screening Bone Density Screening [facility] Start: 2009 Fall Risk Screening Fall Risk Screen ing [facility] Start: 2004 Hepatitis B Vaccine (1 of 3 - Risk 3-dose series) Hepatitis B Vaccine (1 of 3 - Risk 3-dose series) [facility] Start: 2004 RSV Vaccine (1 - 1-d ose 60+ series) RSV Vaccine (1 - 1-dose 60+ series) [facility] Start: 1994 SHINGRIX VACCINE (1 of 2) SHINGRIX VACCINE (1 of 2) [facility] Start: 1962 ANNUAL PCP TEAM CANTEEN ATTENDANT ART DISEASE VISIT ANNUAL PCP TEAM CHRONIC DISEASE VISIT [facility] Start: 1962 BP Controlled (<130/80) BP Controlle d (<130/80) [facility] Start: 1962 HEPATITIS C SCREENING HEPATITIS C SC REENING [facility] Start: 1956 Adult depression screening assessment DEPRESSION SCREENING [facility] Start: 1954 3 comp foot exam completed DIABETIC FOOT EXAM [facility] Start: 1954 Hepatitis C antibody , confirmatory test DILATED RETINAL EXAM [facility] Start: 1944 Medicare Annual Well ness (AWV) Medicare Annual Wellness (AWV) [facility] Start: 1944 Medicare Annual Well ness Visit Medicare Annual Wellness Visit [facility] End: 02-21-2024 ECG COMPLETE ECG COMPLETE ECG Routine S/P MVR (mitral valve replacement) 1 Occurrences starting 02/20/2023 until 02/21/2024 [facility] Work Phone: Comment on above: 1 Occurrences starti ng 02/20/2023 until 02/21/2024 [facility] Immunizations Immunization Date Immunization Notes Care Provider Isabela sanchez 03-14-2022 Influenza, High-dose Seasonal, Quadrivalent, Preservative Free Theresa Valles MD Work Phone: [facility] 03-14-2022 influenza virus vacc ine, unspecified formulation Theresa Valles MD Work Phone: [facility] 01-30-2021 Influenza, High-dose Seasonal, Quadrivalent, Preservative Free Theresa Valles MD Work Phone: [facility] 01-30-2021 influenza virus vacc ine, unspecified formulation Prnice Trujillo MD Work Phone: [facility] 06-01-2020 COVID-19 vaccine, fu ll dose (MODERNA) Xr J1 Work Phone: [facility] Work Phone: 05-04-2020 COVID-19 vaccine, fu ll dose (MODERNA) Xr J1 Work Phone: [facility] Work Phone: 02-02-2020 influenza, high dose seasonal, preservative-free Xr J1 Work Phone: [facility] Work Phone: 02-02-2020 Influenza, High-dose Seasonal, Quadrivalent, Preservative Free Theresa Valles MD Work Phone: [facility] 01-25-2019 influenza, injectabl e, quadrivalent, preservative free Xr J1 Work Phone: [facility] 01-17-2019 pneumococcal polysaccharide vaccine, 23 valent Xr J1 Work Phone: [facility] Work Phone: 06-24-2018 tetanus toxoid, redu marleni diphtheria toxoid, and acellular pertussis vaccine, adsorbed Xr J1 Work Phone: [facility] 01-29-2018 influenza, injectabl e, quadrivalent, preservative free Xr J1 Work Phone: [facility] 10-29-2017 tetanus toxoid, redu marleni diphtheria toxoid, and acellular pertussis vaccine, adsorbed Xr J1 Work Phone: [facility] 02-03-2017 influenza, injectabl e, quadrivalent, preservative free Xr J1 Work Phone: [facility] 01-16-2016 influenza, high dose seasonal, preservative-free Xr J1 Work Phone: [facility] Work Phone: 01-16-2015 influenza, high dose seasonal, preservative-free Theresa Valles MD Work Phone: [facility] 01-18-2014 influenza, high dose seasonal, preservative-free Theresa Valles MD Work Phone: [facility] 12-17-2012 pneumococcal conjuga te vaccine, 13 valent Xr J1 Work Phone: [facility] Work Phone: 09-13-2012 zoster vaccine, live Theresa bermudez MD Work Phone: [facility] 09-13-2012 zoster vaccine, unspecified formulation Theresa Valles MD Work Phone: [facility] 01-16-2010 influenza virus vacc ine, whole virus Xr J1 Work Phone: [facility] 01-10-2009 influenza virus vacc ine, whole virus Xr J1 Work Phone: [facility] 01-05-2008 pneumococcal polysaccharide vaccine, 23 valent Theresa Valles MD Work Phone: [facility] 01-19-2007 influenza virus vacc ine, whole virus Xr J1 Work Phone: [facility] Payers Date Payer Category Payer Unknown [id number] 2022 Self-pay 2022 Unknown [id number] 2019 Unknown MMO MMO MEDICARE SUPPLEMENT [id number] 2019-Present [phone] [address] [place] [address] Indemnity [id number] 2015 Unknown [id number] 2009 Medicare MEDICARE MEDICAR E A AND B [id number] 2009-Present [phone] [address] [address] [place] [address] Medicare [id number] 2009 Medicare [id number] 1959 Medicare [id number] 1959 Unknown [id number] 1944 Unknown [id number] 1944 Unknown [id number] [id number] 1944 Unknown [id number] [id number] 1944 Unknown [id number] [id number] 1944 Unknown [id number] [id number] 1944 Unknown [id number] [id number] 1944 Unknown [id number] 2.840.1.281461.3.579.2.128 1944 Unknown [id number] [id number] 1944 Unknown [id number] [id number] 1944 Unknown [id number] [id number] 1944 Unknown [id number] [id number] 1944 Unknown [id number] [id number] 1944 Unknown [id number] [id number] 1944 Unknown [id number] Medicare [id number] Unknown [id number] Social History Date Type Detail Facility Start: 07-06-2020 End: 08-28-2022 Tobacco smoking status NHIS Never smoked tobacco [facility] Start: 04-22-2017 End: 07-06-2020 Tobacco use and exposure Smokeless tobacco non-user [facility] Start: 10-16-2021 End: 05-07-2023 Alcohol intake Lifetime non-drinker (finding) [facility] Start: 07-06-2020 History SDOH Alcohol Frequency 1 [facility] Start: 1945 Sex Assigned At Not on file [facility] Start: 10-06-2021 End: 10-16-2021 Exposure to SARS-CoV-2 (event) Not sure [facility] Start: 07-06-2020 End: 09-24-2022 Sex Assigned At [facility] Start: 07-06-2020 End: 09-24-2022 History of Social function [facility] How often to you hav e a drink containing alcohol? Never [facility] Average Number of Drinks Not on file [facility] Start: 08-28-2022 Tobacco use and exposure [...] Gender identity Identifies as female gender (finding) [facility] Start: 03-03-2022 Alcohol intake Current drinke r of alcohol (finding) [facility] Equipment Procedure Code Equipment Code Equipment Origin al Text Equipment Identifier Dates Ring Rodriguez Mc3 28mm Titanium Silicone Rubber Polyester Annuloplasty 1 - [id number] Start: 07-31-2020 Valve Biocor Fle xfit 29mm 27mm Porcine Pericardial 19mm Mitral - [id number] Start: 07-31-2020 Pen [place] 31G X 8 MM Clinical Notes 08-02-2020 to 10-20-2022 Note Date & Type Note Facility 10-20-2022 Evaluation note Encounter Date Diagnosis Assessment Notes Oct, Type 2 diabetes mellitus with hyperglycemia (ICD-10 - E11.65) [employer] Other [id number] Evaluation note* Encounter Date Diagnosis Assessment Notes [...] early September. They will sit down with coding educator for a download and review of [...] hyperglycemia, or diabetes medication issues. 6. Prescriptions: [facility] pharmacy/[employer]. August, Vitamin D deficiency (ICD-10 - E55.9) [...] Instructions material was published to portal August, prison current use of insulin (ICD-10 - Z79.4) August, BMI 33.0-33.9,adult (ICD-10 - Z68.33) May benefit from GLP-1 RA, will substantiate diabetes type diagnosis first August, Other I have spent 30 minutes with this patient and over 50% of the visit was counseling done by myself, Italia RAMIRES. [employer] Other 03-15-2023 Evaluation note* Encounter Date Diagnosis [...] hyperglycemia, or diabetes medication issues. 6. Prescriptions: [facility] pharmacy/[employer]. Jun, Vitamin D deficiency (ICD-10 - E55.9) [...] Instructions material was published to portal Jun, prison current use of insulin (ICD-10 - Z79.4) Jun, BMI 33.0-33.9,adult (ICD-10 - Z68.33) May benefit from GLP-1 RA, will substantiate diabetes type diagnosis first Jun, Other I have spent 40 minutes with this patient and over 50% of the visit was counseling done by myself, Italia RAMIRES. [employer] Other 02-15-2023 Evaluation note* Encounter Date Diagnosis Assessment Notes Treatment Notes Treatment Clinical Notes May, Type 2 diabetes mellitus with hyperglycemia (ICD-10 - E11.65) Patient in today with her for review of blood glucose logs, food logs, and insulin dosing. Patient's appointment scheduled for Tania download, but pt reports she never received a call from [facility] to bean picker machine operator Tania. RN called [facility] pharmacy, staff states medical records are needed prior to coverage determination. Informed pharmacy office was not notified of medical record request. Medical records were sent to fax # [phone]. Pharmacy states determination could take up to [...] spent on education by Stephani KHOURY, RN [employer] Other 07-13-2022 NoteHNO ID: [id number] Author: Prince Trujillo MD Service: ? Author Type: Physician Type: Progress Notes Filed: 10/16/2021 10:16 PM Note Text: [facility] [place] Diane Fuller Department of Cardiovascular Medicine SECTION OF CARDIOVASCULAR IMAGING OUTPATIENT VISIT DATE October 16, 2021 OUTPATIENT VISIT TYPE Established PRIMARY CARE PHYSICIAN: Theresa Valles MD ([facility]) [address] [place] [address] REFERRING PHYSICIAN: Theresa Valles MD ([facility]) [address] [facility] [address] CHIEF COMPLAINT: Follow-up. Subjective HISTORY OF PRESENT [...] Osteomyelitis (HCC) - PAD (peripheral artery disease) ([facility]) - Spinal stenosis - Tricuspid valve regurgitation [...] Extremities: No significant peripheral (more content not included)...[facility]07-13-2022 NoteHNO ID: [id number] Author: RT Dinah(Fredi) Service: ? Author Type: [...] BY: RT Dinah(R) October 16, 2021 2:25 [facility]07-13-2022 History of Present illness Narrative* RT [...] 16, 2021 2:25 PM [facility] of Past illness Narrative* Problem [...] questions answered.Jon Charles MD, FASN - Pager [phone] July 25, 2020 @ 12:23 PM PULMONARY [...] 4:48 PM Edenilson Nino APRN.BERNADINE Ortiz RN FOOD CLERK.CONTROL VALVE MECHANIC CHECKED BY: RE 07/25/20 Pulmonary hypertension 07/06/2020 Overview: August 03, 2020 See coordination of care note Restrictive lung disease 021 Overview: August 03, 2020 See coordination of care note documented as of this encounter (statuses as of 10/17/2021) [facility]04-29-2021 History of Past illness Narrative* Problem [...] questions answered.Jon Charles MD, FASN - Pager [phone] July 25, 2020 @ 12:23 PM PULMONARY [...] 4:48 PM Edenilson Nino APRN.BERNADINE Ortiz RN FOOD CLERK.CONTROL VALVE MECHANIC CHECKED BY: KATIE 07/25/20 Pulmonary hypertension 07/06/2020 Overview: August 03, 2020 See coordination of care note Restrictive lung disease 021 Overview: August 03, 2020 See coordination of care note documented as of this encounter (statuses as of 07/30/2022) [facility]04-29-2021 History of Past illness Narrative* Problem [...] questions answered.Jon Charles MD, FASN - Pager [phone] July 25, 2020 @ 12:23 PM PULMONARY [...] of SERVICE: 4:48 PM SHARAD Davis RN APRN.CONTROL VALVE MECHANIC CHECKED BY: KATIE 07/25/20 Pulmonary hypertension 07/06/202008/05 Overview: August 03, 2020 See coordination of care note Restrictive lung disease Overview: August 03, 2020 See coordination of care note documented as of this encounter (statuses as of 02/20/2023) [facility] [place] note* Diagnosis Coronary artery disease involving [place] coronary artery of [place] heart without angina pectoris Nonrheumatic aortic valve insufficiency Aortic valve disorders documented in this encounter [facility] [place] noteNo Common Curriculum Other Evaluation note* Diagnosis Mixed hyperlipidemia- Primary documented in this encounter [facility] [place] note* Diagnosis Hx of mitral valve replacement- Primary Heart valve replaced by other means documented in this encounter [facility] [place] note* Diagnosis S/P MVR (mitral valve replacement)- Primary Heart valve replaced by other means documented in this encounter [facility] [place] note* Diagnosis Chronic kidney disease, stage 4 (severe) (CMS-HCC) [facility] - [facility]orted* Type Description [...] History amputation, toe Hospitalization History See Above [employer] Other InstructionsNot on filedocumented in this encounter [facility] Outpatient Procedure (Routine) - Authorized Specialty Diagnoses / Procedures Referred By Contac t Referred To [facility] Diagnoses S/P MVR (mitral valve replacement) Procedures ECG COMPLETE ECG ROUTINE ECG W/LEAST 12 LDS W/I&R Prince Trujillo MD [address] [place] [address] [facility] [address] [address] Referral ID Status Reason Start Date Expiration Date Visits Requested Visits Authorized [id number] Authorized Auto-Generat ed Referral 3 02/20/2024 1 1 [facility] for visit NarrativeDM, Referral Charley Quintero [facility] Visit Codes, [facility] Visit Codes, TKM 2 IDDMNort Thinkature Other Reason for visit NarrativeDM, Referral 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 Advance Directive(s) 07/07/2020 10:51 AM Additional Source Comments INFORMATION SOURCE (unrecogn ized section and content) DATE CREATED AUTHOR 09/25/2017 [facility] DATE CREATED AUTHOR AUTHOR'S ORGANIZ ATION 04/19/2021 [facility] DATE CREATED AUTHOR AUTHOR'S ORGANIZ ATION 04/19/2021 [facility] pital DATE CREATED AUTHOR AUTHOR'S ORGANIZ ATION 05/30/2021 [facility] DATE CREATED AUTHOR AUTHOR'S ORGANIZ ATION 11/09/2021 [facility] DATE CREATED AUTHOR AUTHOR'S ORGANIZ ATION 05/09/2023 [facility] Specialists [facility] DATE CREATED AUTHOR AUTHOR'S ORGANIZ ATION 05/15/2023 [facility] DATE CREATED AUTHOR AUTHOR'S ORGANIZ ATION 05/18/2023 [facility] Source Comments (unrecognize d section and content) In the event this informatio n is protected by the Federal Confidentiality of Alcohol and Drug Abuse Patient Records regulations: The Federal rules restrict any use of the information to criminally investigate or prosecute any alcohol or drug abuse patient.[facility] the event this information is protected by the Federal Confidentiality of Alcohol and Drug Abuse Patient Records regulations: The Federal rules restrict any use of the information to criminally investigate or prosecute any alcohol or drug abuse patient.[facility] Hospital[facility] the event this information is protected by the Federal Confidentiality of Alcohol and Drug Abuse Patient Records regulations: The Federal rules restrict any use of the information to criminally investigate or prosecute any alcohol or drug abuse patient.[facility] Hospital[facility] the event this information is protected by the Federal Confidentiality of Alcohol and Drug Abuse Patient Records regulations: The Federal rules restrict any use of the information to criminally investigate or prosecute any alcohol or drug abuse patient.[facility] Reason for Visit (unrecogniz ed section and content) Reason Comments Radio Main J1 Care Teams (unrecognized sec tion and content) Video Games Mechanic Relationship Specialty Start Date End Date Theresa Valles MD [address] [place] [address] PCP - General Family Practice 07/07/20 Sharon Mccracken, BERNARD.CONTROL VALVE MECHANIC [address] [place] [address] Primary Service Vascular Medicine 09/27/20 Video Games Mechanic Relationship Specialty Start Date End Date Theresa Valles MD [address] [place] [address] PCP - General Family Medicine 07/07/20 Sharon Mccracken, BERNARD.CONTROL VALVE MECHANIC [address] [place] [address] Primary Service Vascular Medicine 09/27/20 Video Games Mechanic Relationship Specialty Start Date End Date Theresa Valles MD [address] [place] [address] PCP - General Family Medicine 07/07/20 Sharon Mccracken, BERNARD.CONTROL VALVE MECHANIC [address] [place] [address] Primary Service Vascular Medicine 09/27/20 Video Games Mechanic Relationship Specialty Start Date End Date Theresa Valles MD [facility] [place] [address] PCP - General Family Medicine 07/07/20 Sharon Mccracken APRN.CONTROL VALVE MECHANIC [address] [place] [address] Primary Service Vascular Medicine 09/27/20 Video Games Mechanic Relationship Specialty Start Date End Date Theresa Valles MD [address] [place] [address] PCP - General Family Medicine 08/26/22 WonderTheresa eller MD [address] [facility] [place] [address] PCP - ACO Reach 08/28/22 Video Games Mechanic Relationship Specialty Start Date End Date Theresa Valles MD [address] [place] [address] PCP - General Family Medicine 09/10/16 Video Games Mechanic Relationship Specialty Start Date End Date Theresa Valles MD [address] [place] [address] PCP - General Family Medicine 08/26/22 Theresa Valles MD [address] [facility] [place] [address] PCP - ACO Reach 08/28/22 FOR RECORDS [...] BE BASED ON THE PRIMARY CLINICAL RECORDS. [facility] [employer] [facility]. provides no warranty or guarantee of the accuracy or completeness of information in this document.
[2023-05-21] MEDS: SERTRALINE HCL 100 MG TABLET PO (09:30)
[2023-05-21] MEDS: METOPROLOL TARTRATE 25 MG TABLET 12.5 MG PO ×2 (09:31→21:50)
[2023-05-21] MEDS: GABAPENTIN 100 MG CAPSULE 200 MG PO ×2 (09:31→21:50)
[2023-05-21] MEDS: FERROUS SULFATE 325 MG TABLET 650 MG PO (09:32)
[2023-05-21] MEDS: AMMONIUM LACTATE 226 GM BOTTLE 1 APPLIC TOPICAL ×2 (09:32→21:50)
[2023-05-21] MEDS: CHOLECALCIFEROL (VITAMIN D3) 25 MCG/1,000 UNITS TABLET PO (09:32)
[2023-05-21] MEDS: ASPIRIN 81 MG TABLET.DR PO (09:32)
[2023-05-21] MEDS: 0.9 % SODIUM CHLORIDE 1,000 ML 75 ML IV (10:13)
[2023-05-21] MEDS: ACETAMINOPHEN 500 MG TABLET 1000 MG PO ×2 (10:13→21:50)
--- NOTE | 2023-05-21 10:51 | P.PN_ITS ---
<Statement entered by Cornell Cifuentes MD - 05/21/23 12:07> Patient seen and examined, agree with assessment and plan below. Labs improved but remains dehydrated. Overall feels improved other than continued weakness. Continue IV fluids and PT. Diagnosis: 1. GATO 2. Dehydration 3. UTI 4. DM2 5. Chronid HFpEF 6. Paroxysmal afib 7. CAD 8. CKD 4 9. Anemia due to CKD Progress Note: Subjective Subjective Interval history: 05/20/23 0905 The patient is resting comfortably in bed eating her breakfast. She reports feeling relatively well - better than on admission. She is clinically less dry this morning, but her BUN is still significantly elevated beyond baseline and she is a bit dehydrated still. Her IV fluids discontinued after 1 L last night. We will resume IV fluids this morning and keep her for 1 more night for gentle hydration. We will monitor closely for symptoms of fluid overload to avoid CHF exacerbation. Disposition: Plan to discharge home with continued home health nursing and PT services as previously ordered. The patient and spouse do not want to consider a repeat [facility] rehab admission. Exam Constitutional Vital Signs, click to edit/add: Last Vital Signs Temp 97.6 F 05/21/23 07:00 Pulse 82 05/21/23 07:00 Resp 18 05/21/23 07:00 BP 117/75 05/21/23 07:00 Pulse Ox 94 L 05/21/23 07:00 O2 Del Method Room Air 05/20/23 20:53 Common normals: no apparent distress, oriented x3 and alert General appearance: cooperative Orientation/consciousness: Yes awake HENCA Common normals: normocephalic, head/scalp atraumatic and hearing grossly normal bilaterally Eye Common normals: EOMs intact bilaterally and no scleral icterus General eye: other (scleral scarring, L>R) Visual acuity: other (Legally blind) Chest Common normals: inspection of chest normal Chest: symmetrical chest wall rise Respiratory Common normals: normal respiratory effort, no use of accessory muscles and clear to auscultation bilaterally Effort & inspection: able to speak in complete sentences Auscultation: diminished lung sounds (BLL) Cardio Common normals: regular rate, regular rhythm, S1 normal heart sound, S2 normal heart sound, no murmurs and peripheral pulses 2+ throughout GI Common normals: Normal to inspection, nondistended, normoactive bowel sounds present, soft to palpation, non-tender and no hepatosplenomegaly Bladder/kidney exam: bladder normal to palpation Extremity Common normals: normal to inspection and no calf tenderness General: no clubbing, no cyanosis and no edema Neuro Common normals: CN's II-XII intact bilaterally, moves all extremities, no focal motor deficits and no sensory deficits noted Psych Common normals: mental status grossly normal Progress Note: Objective Labs Labs: Short CBC 05/20/23 05/21/23 Range/Units 13:00 04:19 WBC 8.4 9.1 (4.0-11.0) 10^3/uL Hgb 10.9 L 9.9 L (12.0-16.0) g/dL Hct 34.5 L 31.8 L (36.0-48.0) % Plt Count 472 H 453 H (150-450) 10^3/uL BMP 05/20/23 05/21/23 13:00 04:19 Sodium 135 L 141 Potassium 3.8 3.8 Chloride 101 108 H Carbon Dioxide 22.2 22.4 BUN 110.0 H* 99.0 H* Creatinine 2.34 H 1.94 H Glucose 188 H 73 L Calcium 9.8 9.3 Liver Function 05/20/23 05/21/23 Range/Units 13:00 04:19 Total Bilirubin 0.3 0.3 (0.2-1.0) mg/dL Direct Bilirubin 0.1 (0.0-0.2) mg/dL AST 18 16 (15-37) U/L ALT 22 20 (14-59) U/L Alkaline Phosphatase 183 H 153 H (46-116) U/L Albumin 2.1 L 1.8 L (3.4-5.0) g/dL Urine 05/20/23 Range/Units 13:25 Urine Color Yellow (YELLOW) Urine Clarity Turbid A (CLEAR) Urine pH 6.0 (5.0-9.0) Ur Specific [place] 1.020 (1.005-1.025) Urine Protein 100 A (NEG/TRACE) mg/dL Urine Glucose (UA) Negative (NEGATIVE) mg/dL Progress Note: A&P Assessment and Plan (1) Acute kidney injury: Assessment and Plan: ACUTE * Resolving * Cr 1.94, GFR 25 on AM labs today * Baseline renal function: Cr 1.38-2.12, GFR 22-37 * Suspect 2/2 dehydration/overdiuresis in setting of concurrent UTI * Resume NS IVF at 75 ml/hr for gentle hydration. * Avoid aggressive rehydration as the pt's most recent admission in Feb 2023 was for diastolic CHF exacerbation * Continue to hold home bumex for now d/t renal toxicity/dehydration * Likely reduce dose to 0.5 mg daily at discharge * CBC, CMP daily (2) Dehydration: Assessment and Plan: ACUTE * Concurrent mild hyponatremia resolved today * 2/2 to overdiuresis * Pre-renal azotemia persists * BUN 99 - out of proportion to Cr and GFR change from baseline * Gentle IVFs as above * Repeat CMP daily (3) Urinary tract infection: Assessment and Plan: ACUTE * UA pos in ED. * Ur Cx pending * BC X 2 pending - no clinical concern for sepsis at this time w/ stable BP, normal mentation, no leukocytosis, afebrile * IVPB Rocephin daily pending culture results (4) Thrombocytosis: Assessment and Plan: ACUTE * Unclear etiology * May reflect overall volume contraction/hemoconcentration * Mildly improved on AM labs today * CBC daily (5) Hypothyroid: Assessment and Plan: CHRONIC * Pt discharged on levothyroxine from her last hospitalization as a new diagnosis * Levothyroxine was not continued at the SNF after discharge and so pt has not been taking this. * TSH w/ reflex FT4 obtained today * TSH elevated, FT4 WNL - consistent with subclinical hypothyroidism * Defer to PCP for follow up labs and if levothyroxine supplementation should be initiated (6) CAD (coronary artery disease): Assessment and Plan: CHRONIC * Continue home daily ASA, BB, and statin (7) A-fib: Assessment and Plan: CHRONIC * Remains rate controlled * Continue home metoprolol for rate control * Continue home warfarin for CVA prevention - therapeutic range goal of 2.0-3.0 * INR 3.42 today - supratherapeutic * Hold warfarin today * Check INR daily (8) Heart failure: Assessment and Plan: CHRONIC * HFpEF - Preserved EF of 55-60% on 02/17/23 2D Echo * Hold home Bumex for now d/t dehydration/GATO * Likely resume at reduced dosing at discharge * Admitted Feb 2023 for acute diastolic CHF exacerbation - at risk for recurrent CHF exacerbation * Obtain daily weights and strict I&O (9) CKD (chronic kidney disease) stage 4, GFR 15-29 ml/min: Assessment and Plan: CHRONIC * Baseline CKD 3b/4 * Cr 1.38-2.12 * GFR 22-37 (10) Type 2 diabetes mellitus with hyperglycemia: Assessment and Plan: CHRONIC * Continue home Tresiba or pharmacy formulary substitution * ACHS glucometer checks * CC med diet * Med SSI for glucose correction (11) Anemia in chronic kidney disease: Assessment and Plan: CHRONIC * Stable at baseline (12) DM neuropathies: Assessment and Plan: CHRONIC * Continue home gabapentin (13) Depression: Assessment and Plan: CHRONIC * Continue home sertraline Urinary Catheter Management Urinary Catheter Management Straight: Cath placed during this visit: yes Urethral indwelling: No Insertion date: 05/20/23 Insertion time: 13:32
--- NOTE | 2023-05-21 10:51 | PM.PN ---
Progress Note: Subjective Subjective Interval history: 05/20/23 09 The patient is resting comfortably in bed eating her breakfast. She reports feeling relatively well - better than on admission. She is clinically less dry this morning, but her BUN is still significantly elevated beyond baseline and she is a bit dehydrated still. Her IV fluids discontinued after 1 L last night. We will resume IV fluids this morning and keep her for 1 more night for gentle hydration. We will monitor closely for symptoms of fluid overload to avoid CHF exacerbation. Disposition: Plan to discharge home with continued home health nursing and PT services as previously ordered. The patient and spouse do not want to consider a repeat group home rehab admission. Exam Constitutional Vital Signs, click to edit/add: Last Vital Signs Temp 97.6 F 05/21/23 07:00 Pulse 82 05/21/23 07:00 Resp 18 05/21/23 07:00 BP 117/75 05/21/23 07:00 Pulse Ox 94 L 05/21/23 07:00 O2 Del Method Room Air 05/20/23 20:53 Common normals: no apparent distress, oriented x3 and alert General appearance: cooperative Orientation/consciousness: Yes awake HENMT Common normals: normocephalic, head/scalp atraumatic and hearing grossly normal bilaterally Eye Common normals: EOMs intact bilaterally and no scleral icterus General eye: other (scleral scarring, L>R) Visual acuity: other (Legally blind) Chest Common normals: inspection of chest normal Chest: symmetrical chest wall rise Respiratory Common normals: normal respiratory effort, no use of accessory muscles and clear to auscultation bilaterally Effort & inspection: able to speak in complete sentences Auscultation: diminished lung sounds (BLL) Cardio Common normals: regular rate, regular rhythm, S1 normal heart sound, S2 normal heart sound, no murmurs and peripheral pulses 2+ throughout GI Common normals: Normal to inspection, nondistended, normoactive bowel sounds present, soft to palpation, non-tender and no hepatosplenomegaly Bladder/kidney exam: bladder normal to palpation Extremity Common normals: normal to inspection and no calf tenderness General: no clubbing, no cyanosis and no edema Neuro Common normals: CN's II-XII intact bilaterally, moves all extremities, no focal motor deficits and no sensory deficits noted Psych Common normals: mental status grossly normal Progress Note: Objective Labs Labs: Short CBC 05/20/23 05/21/23 Range/Units 13:00 04:19 WBC 8.4 9.1 (4.0-11.0) 10^3/uL Hgb 10.9 L 9.9 L (12.0-16.0) g/dL Hct 34.5 L 31.8 L (36.0-48.0) % Plt Count 472 H 453 H (150-450) 10^3/uL BMP 05/20/23 05/21/23 13:00 04:19 Sodium 135 L 141 Potassium 3.8 3.8 Chloride 101 108 H Carbon Dioxide 22.2 22.4 BUN 110.0 H* 99.0 H* Creatinine 2.34 H 1.94 H Glucose 188 H 73 L Calcium 9.8 9.3 Liver Function 05/20/23 05/21/23 Range/Units 13:00 04:19 Total Bilirubin 0.3 0.3 (0.2-1.0) mg/dL Direct Bilirubin 0.1 (0.0-0.2) mg/dL AST 18 16 (15-37) U/L ALT 22 20 (14-59) U/L Alkaline Phosphatase 183 H 153 H (46-116) U/L Albumin 2.1 L 1.8 L (3.4-5.0) g/dL Urine 05/20/23 Range/Units 13:25 Urine Color Yellow (YELLOW) Urine Clarity Turbid A (CLEAR) Urine pH 6.0 (5.0-9.0) Ur Specific [place] 1.020 (1.005-1.025) Urine Protein 100 A (NEG/TRACE) mg/dL Urine Glucose (UA) Negative (NEGATIVE) mg/dL Progress Note: A&P Assessment and Plan (1) Acute kidney injury: Assessment and Plan: ACUTE Resolving Cr 1.94, GFR 25 on AM labs today Baseline renal function: Cr 1.38-2.12, GFR 22-37 Suspect 2/2 dehydration/overdiuresis in setting of concurrent UTI Resume NS IVF at 75 ml/hr for gentle hydration. Avoid aggressive rehydration as the pt's most recent admission in Feb 2023 was for diastolic CHF exacerbation Continue to hold home bumex for now d/t renal toxicity/dehydration Likely reduce dose to 0.5 mg daily at discharge CBC, CMP daily (2) Dehydration: Assessment and Plan: ACUTE Concurrent mild hyponatremia resolved today 2/2 to overdiuresis Pre-renal azotemia persists BUN 99 - out of proportion to Cr and GFR change from baseline Gentle IVFs as above Repeat CMP daily (3) Urinary tract infection: Assessment and Plan: ACUTE UA pos in ED. Ur Cx pending BC X 2 pending - no clinical concern for sepsis at this time w/ stable BP, normal mentation, no leukocytosis, afebrile IVPB Rocephin daily pending culture results (4) Thrombocytosis: Assessment and Plan: ACUTE Unclear etiology May reflect overall volume contraction/hemoconcentration Mildly improved on AM labs today CBC daily (5) Hypothyroid: Assessment and Plan: CHRONIC Pt discharged on levothyroxine from her last hospitalization as a new diagnosis Levothyroxine was not continued at the SNF after discharge and so pt has not been taking this. TSH w/ reflex FT4 obtained today TSH elevated, FT4 WNL - consistent with subclinical hypothyroidism Defer to PCP for follow up labs and if levothyroxine supplementation should be initiated (6) CAD (coronary artery disease): Assessment and Plan: CHRONIC Continue home daily ASA, BB, and statin (7) A-fib: Assessment and Plan: CHRONIC Remains rate controlled Continue home metoprolol for rate control Continue home warfarin for CVA prevention - therapeutic range goal of 2.0-3.0 INR 3.42 today - supratherapeutic Hold warfarin today Check INR daily (8) Heart failure: Assessment and Plan: CHRONIC HFpEF - Preserved EF of 55-60% on 02/17/23 2D Echo Hold home Bumex for now d/t dehydration/GATO Likely resume at reduced dosing at discharge Admitted Feb 2023 for acute diastolic CHF exacerbation - at risk for recurrent CHF exacerbation Obtain daily weights and strict I&O (9) CKD (chronic kidney disease) stage 4, GFR 15-29 ml/min: Assessment and Plan: CHRONIC Baseline CKD 3b/4 Cr 1.38-2.12 GFR 22-37 (10) Type 2 diabetes mellitus with hyperglycemia: Assessment and Plan: CHRONIC Continue home Tresiba or pharmacy formulary substitution ACHS glucometer checks CC med diet Med SSI for glucose correction (11) Anemia in chronic kidney disease: Assessment and Plan: CHRONIC Stable at baseline (12) DM neuropathies: Assessment and Plan: CHRONIC Continue home gabapentin (13) Depression: Assessment and Plan: CHRONIC Continue home sertraline Urinary Catheter Management Urinary Catheter Management Straight: Cath placed during this visit: yes Urethral indwelling: No Insertion date: 05/20/23 Insertion time: 13:32
--- NOTE | 2023-05-21 11:47 | CM.NOTE ---
Rounds made with Dr. Cifuentes. Dr. Cifuentes reviewed medications with Mr/Mrs. Jolley , both verbalize understanding.
[2023-05-21 11:50] LABS: Glucometer 161 mg/dL (74-106)
[2023-05-21] MEDS: INSULIN ASPART 300 UNIT/3 ML PEN SUBQ ×3 (12:45→21:49)
[2023-05-21 14:25] LABS: Anion Gap 11.8; Calcium 9.1 mg/dL (8.5-10.1); Carbon Dioxide 23.9 mmol/L (21.0-32.0); Chloride 103 mmol/L (98-107); Estimated GFR (African America 30 (>=60); Estimated GFR (Non-African Ame 24 (>=60); Glucose 128 mg/dL (74-106); Potassium 3.7 mmol/L (3.5-5.1); Sodium 135 mmol/L (136-145)
[2023-05-21] MEDS: CEFTRIAXONE 1,000 MG in 0.9 % SODIUM CHLORIDE 50 ML 100 MG IV (15:38)
[2023-05-21 16:23] LABS: Glucometer 143 mg/dL (74-106)
--- NOTE | 2023-05-21 16:27 | SWNOTE1 ---
SW not able to complete assessment in room with pt. SW to complete tomorrow. Pt has [facility] and family/pt voiced that pt is returning home with home health.
[2023-05-21 21:15] LABS: Glucometer 189 mg/dL (74-106)
[2023-05-21] MEDS: INSULIN DETEMIR 300 UNIT/3 ML INSULN.PEN 8 UNIT SUBQ (21:49)
[2023-05-21] MEDS: ATORVASTATIN CALCIUM 20 MG TABLET PO (21:50)
[2023-05-22] VITALS (11 sets, daily range): BP systolic 110–112; BP diastolic 64–69; PULSE 62–82; RESP 16–18; TEMP 36.6–36.7; O2SAT 93
[2023-05-22] MEDS: 0.9 % SODIUM CHLORIDE 1,000 ML 75 ML IV ×2 (00:51→13:33)
--- NOTE | 2023-05-22 04:56 | PC.NURSE ---
wet brief weighed 444.
[2023-05-22 05:10] LABS: Basophils Absolute Auto 0.1 10^3/uL (0.0-0.1); Basophils Percent Auto 0.9 % (0.2-2.0); Eosinophils Absolute Auto 0.3 10^3/uL (0.0-0.7); Eosinophils Percent Auto 5.4 % (0.9-7.0); Hematocrit 30.4 % (36.0-48.0); Hemoglobin 9.1 g/dL (12.0-16.0); Immature Granulocytes Abs Auto 0.02 10^3/uL (0.00-0.03); Immature Granulocytes Pct Auto 0.3 % (0.0-0.5); Lymphocytes Percent Auto 16.2 % (20.5-60.0); Mean Corpuscular HGB Conc 29.9 g/dL (29.9-35.2); Mean Corpuscular Hemoglobin 28.8 pg (26.7-34.0); Mean Corpuscular Volume 96.2 fL (81.0-99.0); Mean Platelet Volume 9.9 fL (9.5-13.5); Monocytes Absolute Auto 0.8 10^3/uL (0.3-0.8); Monocytes Percent Auto 12.9 % (1.7-12.0); Neutrophils Absolute Auto 3.8 10^3/uL (1.4-6.5); Neutrophils Percent Auto 64.3 % (43.0-75.0); Platelet Count 406 10^3/uL (150-450); Red Blood Count 3.16 10^6/uL (4.20-5.40); Red Cell Distribution Width 19.2 % (11.0-15.0); White Blood Count 5.9 10^3/uL (4.0-11.0)
[2023-05-22] MEDS: OMEPRAZOLE 40 MG CAPSULE.DR PO (05:53)
[2023-05-22 05:58] LABS: Alanine Aminotransferase 17 U/L (14-59); Albumin Globulin Ratio 0.4; Albumin Level 1.7 g/dL (3.4-5.0); Alkaline Phosphatase 146 U/L (46-116); Anion Gap 14.9; Aspartate Amino Transferase 17 U/L (15-37); BUN Creatinine Ratio 49.7; Bilirubin Total 0.2 mg/dL (0.2-1.0); Carbon Dioxide 20.4 mmol/L (21.0-32.0); Chloride 108 mmol/L (98-107); Estimated GFR (African America 30 (>=60); Estimated GFR (Non-African Ame 25 (>=60); Glucose 140 mg/dL (74-106); Potassium 4.3 mmol/L (3.5-5.1); Sodium 139 mmol/L (136-145); Total Protein 5.7 g/dL (6.4-8.2)
[2023-05-22 06:35] LABS: INR 4.19
--- NOTE | 2023-05-22 08:24 | CM.NOTE ---
Medicare Outpatient Observation Notice discussed with pt, pt verbalizes understanding and signs paper. Original given to pt and copy placed in pt's chart.
--- NOTE | 2023-05-22 08:32 | CM.NOTE ---
Discussed with pt this AM regarding discharge planning, pt states her plan is to return back home with [facility] services.
[2023-05-22] MEDS: AMMONIUM LACTATE 226 GM BOTTLE 1 APPLIC TOPICAL (08:55)
[2023-05-22] MEDS: GABAPENTIN 100 MG CAPSULE 200 MG PO (08:56)
[2023-05-22] MEDS: SERTRALINE HCL 100 MG TABLET PO (08:56)
[2023-05-22] MEDS: ASPIRIN 81 MG TABLET.DR PO (08:56)
[2023-05-22] MEDS: FERROUS SULFATE 325 MG TABLET 650 MG PO (08:56)
[2023-05-22] MEDS: ACETAMINOPHEN 500 MG TABLET 1000 MG PO (08:56)
[2023-05-22] MEDS: METOPROLOL TARTRATE 25 MG TABLET 12.5 MG PO (08:56)
[2023-05-22] MEDS: CHOLECALCIFEROL (VITAMIN D3) 25 MCG/1,000 UNITS TABLET PO (08:56)
--- NOTE | 2023-05-22 09:46 | PC.NURSE ---
0940 physician rounded at this time
--- NOTE | 2023-05-22 10:51 | CM.NOTE ---
Rounds made with Dr. Cifuentes, pt will discharge to home today. Pt will continue with [facility] services at discharge.
[2023-05-22 11:07] LABS: Glucometer 105 mg/dL (74-106)
--- NOTE | 2023-05-22 11:14 | PT.DAILY ---
Physical Therapy Daily Note PT Daily Note/Assess Start: 05/21/23 13:22 Freq: Status: Active Protocol: Document 05/22/23 09:55 [email or web address] (Rec: 05/22/23 11:14 [email or web address] [id number]) Physical Therapy Daily Note/Assessment Time In/Time Out Time In 09:55 Time Out 10:13 Subjective Subjective Patient is very pleasant. Agrees to PT RX. Therapeutic Exercise Time Therapeutic Exercise Minutes (minutes) 18 Therapeutic Exercise Units 1 Therapeutic Exercise Treatment Therapeutic Exercise Treatment Supine exercises as follows to promote ROM and strength: -AP, QS, GS, Add set. AAROM heel-slides, AAROM hip abduction, SAQ, AAROM SLR, and modified sit ups (patient used therapist forearm to pull up with therapist supporting behind upper back as well). Total Physical Therapy Time Total Therapy Minutes 18 Total Physical Therapy Units 1 Summary Daily Note Summary Progressed exercise program to work on LE ROM, and core strength to work towards goal of unsupported sitting. Patient is motivated and worked hard with exercise program today. Will recommend HH PT at [place] home to help gain more strength for patient to be able to participate in ADL' s.
--- NOTE | 2023-05-22 11:34 | PM.DS1 ---
DS: Providers Provider Date of admission: 05/20/23 15:32 Primary care physician: MEGAN VALLES Consults: 05/20/23 15:45 Physical Therapy Eval and Treat Routine Reason for consultation: Generalized weakness Has provider been notified: No 05/20/23 15:46 Occupational Therapy Eval and Treat Routine Reason for consultation: Generalized weakness Has provider been notified: No 05/21/23 10:59 Occupational Therapy Eval and Treat Routine Reason for consultation: Weakness DS: Diagnosis Discharge Diagnosis (1) Acute kidney injury: (2) Dehydration: (3) Urinary tract infection: DS: Summary Hospital Course Hospital Course: Reason for admission: See ER note and H&P for details. 77 y/o female to ER with abnormal labs. Patient had outpatient labs which showed elevated BUN and concerned of excess diuresis. To ER and BUN 110 and cr 2.34. UA showed UTI and admitted. Hospital course: Started IV fluids for GATO and gradually improved. Started rocephin for UTI and resumed home medication but held bumex. Continued IV fluids and started PT for weakness. Patient continued to improve and labs improved. Urine culture showed UTI due to E. coli and resistent to Rocephin. Will start bactrim on discharge for UTI. INR elevated at 4 and hold coumadin. Repeat INR on Thursday, 05/25. Decrease bumex to 0.5 mg daily. Follow up with PCP in 3-7 days. Resume other home medications as directed. Time Spent with Patient Time attestation: Total time spent providing and/or coordinating discharge services: Exam Constitutional Vital Signs, click to edit/add: Last Vital Signs Temp 98.1 F 05/22/23 04:57 Pulse 75 05/22/23 10:00 Resp 16 05/22/23 08:35 BP 111/64 05/22/23 08:35 Pulse Ox 93 L 05/22/23 04:57 O2 Del Method Room Air 05/22/23 04:57 Documenting provider has reviewed patient's vital signs: yes Common normals: no apparent distress, oriented x3 and alert HENMT Common normals: normocephalic Eye Common normals: PERRL and EOMs intact bilaterally Respiratory Common normals: normal respiratory effort and clear to auscultation bilaterally Cardio Common normals: regular rate, regular rhythm, no gallops, no murmurs and no rub GI Common normals: Normal to inspection, nondistended, normoactive bowel sounds present and non-tender Extremity Common normals: no pedal edema DS: Data Data Completed and Pending Labs on day of discharge: Labs from last 24 hours 05/22/23 05/22/23 05/21/23 11:06 04:20 21:14 WBC 5.9 RBC 3.16 L Hgb 9.1 L Hct 30.4 L MCV 96.2 MCH 28.8 MCHC 29.9 RDW 19.2 H Plt Count 406 MPV 9.9 Neut % (Auto) 64.3 Lymph % (Auto) 16.2 L [place] % (Auto) 12.9 H Eos % (Auto) 5.4 Baso % (Auto) 0.9 Neut # (Auto) 3.8 Lymph # (Auto) 1.0 L [place] # (Auto) 0.8 Eos # (Auto) 0.3 Baso # (Auto) 0.1 Abs Immat Gran (auto) 0.02 Imm/Tot Granulo (auto) 0.3 PT 41.0 H* INR 4.19 H* Sodium 139 Potassium 4.3 Chloride 108 H Carbon Dioxide 20.4 L Anion Gap 14.9 BUN 97.0 H* Creatinine 1.95 H Est GFR ( Amer) 30 L Est GFR (Non-Af Amer) 25 L BUN/Creatinine Ratio 49.7 Glucose 140 H Calcium 9.0 Total Bilirubin 0.2 AST 17 ALT 17 Alkaline Phosphatase 146 H Total Protein 5.7 L Albumin 1.7 L Globulin 4.0 Albumin/Globulin Ratio 0.4 POC Glucose 105 189 H 05/21/23 05/21/23 05/21/23 16:22 13:28 11:48 WBC RBC Hgb Hct MCV MCH MCHC RDW Plt Count MPV Neut % (Auto) Lymph % (Auto) [place] % (Auto) Eos % (Auto) Baso % (Auto) Neut # (Auto) Lymph # (Auto) [place] # (Auto) Eos # (Auto) Baso # (Auto) Abs Immat Gran (auto) Imm/Tot Granulo (auto) PT INR Sodium 135 L Potassium 3.7 Chloride 103 Carbon Dioxide 23.9 Anion Gap 11.8 BUN 101.0 H* Creatinine 1.98 H Est GFR ( Amer) 30 L Est GFR (Non-Af Amer) 24 L BUN/Creatinine Ratio 51.0 Glucose 128 H Calcium 9.1 Total Bilirubin AST ALT Alkaline Phosphatase Total Protein Albumin Globulin Albumin/Globulin Ratio POC Glucose 143 H 161 H Discharge Plan Discharge Disposition: Home Health Service Condition: Good Discharge Medications: New bumetanide 0.5 mg tablet 0.5 mg PO DAILY Qty: 30 0RF sulfamethoxazole-trimethoprim [Bactrim DS] 800-160 mg tablet 1 tab PO BID 7 Days Qty: 14 0RF Continued gabapentin 100 mg capsule 200 mg PO BID metoprolol tartrate 25 mg tablet 12.5 mg PO BID pantoprazole 40 mg tablet,delayed release (DR/EC) 40 mg PO DAILY sertraline 100 mg tablet 100 mg PO DAILY simvastatin 40 mg tablet 40 mg PO .qhs insulin degludec [Tresiba FlexTouch U-100] 100 unit/mL (3 mL) insulin pen 8 unit subcut QPM Humalog U-100 Insulin 100 unit/mL cartridge 1 sliding scale dose subcut TIDWM Rx Instructions: give 3-6 or 9 units depending on her sugar aspirin [Adult Aspirin Regimen] 81 mg tablet,delayed release (DR/EC) 81 mg PO DAILY ferrous sulfate [Feosol] 325 mg (65 mg iron) tablet 650 mg PO DAILY acetaminophen [Tylenol] 325 mg tablet 1,000 mg PO BID cholecalciferol (vitamin D3) 25 mcg (1,000 unit) tablet 25 mcg PO DAILY Held warfarin 1 mg tablet 3 mg PO DAILY Hold Instructions: Check INR on Thursday, 05/25 Discontinued bumetanide 1 mg tablet 1 mg PO BID Activity: resume usual activities as tolerated Diet: advance to your usual diet Forms: Portal Instructions Follow Up Appointments: @ 8:30am with Dr. Valles [phone]
--- NOTE | 2023-05-22 11:57 | CM.NOTE ---
Called [facility] for pt's discharge back to home today. [facility] will resume services at discharge. Faxed [facility] notes, order, med list, labs, and vitals.
[2023-05-22] MEDS: CEFTRIAXONE 1,000 MG in 0.9 % SODIUM CHLORIDE 50 ML 100 MG IV (13:31)
--- NOTE | 2023-05-25 12:53 | CM.DCFOLLOWU ---
Person spoke with: Trevin How are you feeling? she is doing so much better How is your pain? none Did you understand your discharge instructions? yes Do you have any questions about your discharge instructions? no Were you given any prescriptions at discharge? yes Were you able to get your prescriptions filled? yes Do you understand how to take your medications as ordered? yes and is holding the medications listed on the d/c instructions Do you have any questions about your follow up appointment and do you plan to keep your follow up appointment? No questions and planning on keeping the 05/[address] Ramos. Is there anything else that you would like to discuss? no. Home Health has already been out today. Questions/Comments/Concerns/Other: n/a
== END 2023-05-22 15:16 | disposition home health service (06) ==
LOC: ER 14:59 → MS 19:22
PROVIDERS: Family Medicine; Admitting Provider Family Medicine; Emergency Provider Emergency Medicine; PCP Family Medicine; Visit Provider Nurse Practitioner
DX: N17.9 Acute kidney failure, unspecified (principal); E86.0 Dehydration; E87.1 Hypo-osmolality and hyponatremia; N39.0 Urinary tract infection, site not specified; E03.9 Hypothyroidism, unspecified; I25.10 Atherosclerotic heart disease of native coronary artery without angina pectoris; I48.0 Paroxysmal atrial fibrillation; I50.32 Chronic diastolic (congestive) heart failure; N18.4 Chronic kidney disease, stage 4 (severe); E11.22 Type 2 diabetes mellitus with diabetic chronic kidney disease; D63.1 Anemia in chronic kidney disease; E11.40 Type 2 diabetes mellitus with diabetic neuropathy, unspecified; D75.839 Thrombocytosis, unspecified; F32.A Depression, unspecified; H54.8 Legal blindness, as defined in USA; B96.20 Unspecified Escherichia coli [E. coli] as the cause of diseases classified elsewhere; Z79.82 Long term (current) use of aspirin; Z79.4 Long term (current) use of insulin; Z79.899 Other long term (current) drug therapy; Z79.01 Long term (current) use of anticoagulants; Z95.1 Presence of aortocoronary bypass graft; Z95.2 Presence of prosthetic heart valve
CPT/HCPCS: 36415; 80048; 80053; 80076; 81001; 82948; 83605; 83880; 84145; 84439; 84443; 85025; 85610; 87040; 87086; 87150; 87186; 93005; 96361; 96365; 96366; 97110; 97161; 97165; 99285; G0378; J0696

== ENCOUNTER 2023-09-07 13:05 | Inpatient (IN) | payer MEDICARE, OTHER, SELFPAY ==
[2023-09-07] VITALS (19 sets, daily range): BP systolic 132–159; BP diastolic 67–88; PULSE 68–799; TEMP 36.2–36.8; O2SAT 90–97; BMI 39.1; BMI 34.8
--- NOTE | 2023-09-07 13:34 | ED.GENADUL1 ---
HPI HPI - General Adult General Chief complaint: Altered Mental Status Stated complaint: ALTERED MENTAL Time Seen by Provider: 09/07/23 13:26 Source: patient Mode of arrival: walk-in Limitations: no limitations History of Present Illness HPI narrative: Patient is here with her from home. 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 He does not know if she is running a fever or not. She denies any pain shortness of breath or chest discomfort. She just is not able to answer all the questions appropriately and that is unusual for her. She does not have a headache. She has not had recent falls or injury. He is monitoring her INR at home as she does take Coumadin at was elevated so it was held over the weekend. She has bruising on her left medial thigh that appears to be several days old consistent with his history. She is not on any antibiotics. With this history her primary care doctor told her to go to the emergency room. The patient takes Coumadin because of valvular heart surgery. Patient states that she has had ulcers in the past. She states her bowel movements been black but they are always like that because of iron supplementation. She had a recent colonoscopy and they did not find any abnormalities. Her states that she has had blood transfusions when she was last here in July. Related Data Home Medications ?Medication ?Instructions ?Recorded ?Confirmed aspirin 81 mg tablet,delayed 81 mg PO DAILY 01/09/23 09/07/23 release (Adult Aspirin Regimen) ferrous sulfate 325 mg (65 mg 650 mg PO DAILY 01/09/23 09/07/23 iron) tablet (Feosol) insulin degludec 100 unit/mL (3 8 unit subcut QPM 01/09/23 09/07/23 mL) subcutaneous pen (Tresiba FlexTouch U-100 insulin) insulin lispro 100 unit/mL 1 sliding scale dose subcut TIDWM 01/09/23 09/07/23 subcutaneous cartridge (Humalog U-100 Insulin) metoprolol tartrate 25 mg tablet 12.5 mg PO BID 01/09/23 09/07/23 pantoprazole 40 mg tablet,delayed 40 mg PO DAILY 01/09/23 09/07/23 release sertraline 100 mg tablet 100 mg PO DAILY 01/09/23 09/07/23 simvastatin 40 mg tablet 40 mg PO .qhs 01/09/23 09/07/23 warfarin 1 mg tablet 3 mg PO DAILY 01/09/23 09/07/23 acetaminophen 325 mg tablet 1,000 mg PO BID 05/20/23 09/07/23 (Tylenol) cholecalciferol (vitamin D3) 25 25 mcg PO DAILY 05/20/23 09/07/23 mcg (1,000 unit) tablet Previous Rx's ?Medication ?Instructions ?Recorded bumetanide 0.5 mg tablet 0.5 mg PO DAILY #30 tabs 05/22/23 Allergies Allergy/AdvReac Type Severity Reaction Status Date / Time No Known Drug Allergies Allergy Verified 01/07/23 14:19 Opioid HPI Opioid Management Most Recent Opioid Data: Last Pain Scale 0 05/22/23 08:56 Last Pain Intensity 0 05/21/23 13:23 [facility] Medical History (Updated 09/07/23 @ 15:37 by Dario Wilson MD) Thrombocytosis ?D75.839 - Thrombocytosis, unspecified (ICD-10) Paroxysmal atrial fibrillation ?I48.0 - Paroxysmal atrial fibrillation (ICD-10) Chronic heart failure with preserved ejection fraction (HFpEF) ?I50.32 - Chronic diastolic (congestive) heart failure (ICD-10) Depression ?F32.A - Depression, unspecified (ICD-10) DM neuropathies ?E11.40 - Type 2 diabetes mellitus with diabetic neuropathy, unspecified (ICD-10) Abnormal echocardiogram ?R93.1 - Abnormal findings on diagnostic imaging of heart and coronary circulation (ICD-10) Hypothyroid ?E03.9 - Hypothyroidism, unspecified (ICD-10) Weakness ?R53.1 - Weakness (ICD-10) Frequent falls ?R29.6 - Repeated falls (ICD-10) Open wound of right thigh ?S71.101A - Unspecified open wound, right thigh, initial encounter (ICD-10) Heart failure ?I50.9 - Heart failure, unspecified (ICD-10) A-fib ?I48.91 - Unspecified atrial fibrillation (ICD-10) CAD (coronary artery disease) ?I25.10 - Atherosclerotic heart disease of [place] coronary artery without angina pectoris (ICD-10) Chronic respiratory failure ?J96.10 - Chronic respiratory failure, unspecified whether with hypoxia or hypercapnia (ICD-10) Charcot foot due to diabetes mellitus ?E11.610 - Type 2 diabetes mellitus with diabetic neuropathic arthropathy (ICD-10) Type 2 diabetes mellitus with hyperglycemia ?E11.65 - Type 2 diabetes mellitus with hyperglycemia (ICD-10) CKD (chronic kidney disease) stage 4, GFR 15-29 ml/min ?N18.4 - Chronic kidney disease, stage 4 (severe) (ICD-10) Anemia in chronic kidney disease ?N18.9 - Chronic kidney disease, unspecified (ICD-10) ?D63.1 - Anemia in chronic kidney disease (ICD-10) Surgical History (Updated 02/17/23 @ 10:20 by Joie Rosenthal NP) Hx of CABG ?Z95.1 - Presence of aortocoronary bypass graft (ICD-10) History of mitral valve repair ?Z98.890 - Other specified postprocedural states (ICD-10) Heart valve replaced ?Z95.2 - Presence of prosthetic heart valve (ICD-10) Family History (Updated 01/09/23 @ 23:22 by Flavia Jensen) Mother Family history of diabetes mellitus Father Family history of diabetes mellitus Family history of myocardial infarction Social History Within the past year, how often did you have a drink containing alcohol: never Within the past year, how often did you have six or more drinks on one occasion: never Score interpretation: A score less than 3 is consistent with normal alcohol consumption. Smoking status: Never smoker Second hand tobacco smoke exposure: No Non-prescribed substance use: denies use Previous occupational history: Known occupational exposures/hazards: No Highest level of school completed/degree received: high school graduate Do you want help with school or training: No Are you now , , , , never or living with a partner: In a typical week, how many times do you talk on the telephone with family, friends, or neighbors: 3 or more times per week How often do you get together with friends or relatives: 3 or more times per week How often do you attend jain or uatsdin services: 4 or more times per year Do you belong to any clubs or organizations such as jain groups unions, fraternal or athletic groups, or school groups: no Total score: 3 Score interpretation: A score of greater than or equal to 2 indicates the lowest level of social isolation. Little interest or pleasure in doing things: not at all Feeling down, depressed, or hopeless: not at all Feel stressed/tense/nervous/anxious/difficulty sleeping: only a little Due to disability, difficulty making decisions: No Do you think of yourself as: straight/heterosexual Gender Identity: female Exam Narrative Exam Narrative: Patient is awake alert good sense of humor oriented to place and person but not time. She provides details to several other personal questions and is accurate with most of them. She denies any headache or neck pain. Actually denies any discomfort anywhere at this time. Chest is unremarkable with no wheeze rales or rhonchi heart sounds are normal. She has a median sternotomy incision. Her belly is soft and supple she is got a diaper on. She has had previous UTIs but does not not have any urinary symptoms today. She does not have an indwelling Salgado catheter. Her extremities show a resolving hematoma over the left medial thigh. Extremities are warm and dry. There is 2+ edema bilaterally. She is pretty much confined to bed in a wheelchair and is not ambulatory. Constitutional Vital Signs, click to edit/add: Last Vital Signs Temp 98.2 F 09/07/23 13:12 Pulse 81 09/07/23 13:12 Resp 18 09/07/23 13:12 BP 132/88 09/07/23 13:12 Pulse Ox 94 L 09/07/23 13:12 O2 Del Method Room Air 09/07/23 13:12 Course Vital Signs Vital signs: Vital Signs Temperature 98.2 F 09/07/23 13:12 Pulse Rate 81 09/07/23 13:12 Respiratory Rate 18 09/07/23 13:12 Blood Pressure 132/88 09/07/23 13:12 Pulse Oximetry 94 L 09/07/23 13:12 Oxygen Delivery Method Room Air 09/07/23 13:12 Temperature 98.2 F 09/07/23 13:12 Pulse Rate 81 09/07/23 13:12 Respiratory Rate 18 09/07/23 13:12 Blood Pressure 132/88 09/07/23 13:12 Pulse Oximetry 94 L 09/07/23 13:12 Oxygen Delivery Method Room Air 09/07/23 13:12 Medical Decision Making MDM Narrative Medical decision making narrative: Patient's laboratory testing come back with profound anemia. When we will review her previous medical records she has been given transfusions before and there was no etiology of the bleeding. She was on Coumadin at that time as well. She does have some chronic renal failure and it was felt to be contributing to the anemia as well. We will speak to the hospitalist regards to admission. Lab Data Labs: Lab Results 09/07/23 09/07/23 Range/Units 14:10 14:46 WBC 6.9 (4.0-11.0) 10^3/uL RBC 1.64 L (4.20-5.40) 10^6/uL Hgb 4.9 L* (12.0-16.0) g/dL Hct 16.6 L* (36.0-48.0) % MCV 101.2 H (81.0-99.0) fL MCH 29.9 (26.7-34.0) pg MCHC 29.5 L (29.9-35.2) g/dL RDW 16.8 H (11.0-15.0) % Plt Count 416 (150-450) 10^3/uL MPV 9.6 (9.5-13.5) fL Neut % (Auto) 73.7 (43.0-75.0) % Lymph % (Auto) 13.6 L (20.5-60.0) % [place] % (Auto) 9.7 (1.7-12.0) % Eos % (Auto) 2.3 (0.9-7.0) % Baso % (Auto) 0.4 (0.2-2.0) % Neut # (Auto) 5.1 (1.4-6.5) 10^3/uL Lymph # (Auto) 0.9 L (1.2-3.8) 10^3/uL [place] # (Auto) 0.7 (0.3-0.8) 10^3/uL Eos # (Auto) 0.2 (0.0-0.7) 10^3/uL Baso # (Auto) 0.0 (0.0-0.1) 10^3/uL Abs Immat Gran (auto) 0.02 (0.00-0.03) 10^3/uL Imm/Tot Granulo (auto) 0.3 (0.0-0.5) % PT 16.9 H (9.0-11.6) sec INR 1.68 Sodium 138 (136-145) mmol/L Potassium 3.7 (3.5-5.1) mmol/L Chloride 103 (98-107) mmol/L Carbon Dioxide 27.7 (21.0-32.0) mmol/L Anion Gap 11.0 BUN 55.0 H (7.0-18.0) mg/dL Creatinine 1.41 H (0.55-1.02) mg/dL Est GFR ( Amer) 44 L (>=60) Est GFR (Non-Af Amer) 36 L (>=60) BUN/Creatinine Ratio 39.0 Glucose 118 H (74-106) mg/dL Lactate 1.1 (0.4-2.0) mmol/L Calcium 8.7 (8.5-10.1) mg/dL Total Bilirubin 0.7 (0.2-1.0) mg/dL AST 24 (15-37) U/L ALT 22 (14-59) U/L Alkaline Phosphatase 115 (46-116) U/L Troponin I High Sens 17.7 (4.0-51.3) pg/mL Total Protein 5.6 L (6.4-8.2) g/dL Albumin 1.9 L (3.4-5.0) g/dL Globulin 3.7 g/dL Albumin/Globulin Ratio 0.5 Urine Color Yellow (YELLOW) Urine Clarity Clear (CLEAR) Urine pH 6.0 (5.0-9.0) Ur Specific [place] 1.015 (1.005-1.025) Urine Protein 100 A (NEG/TRACE) mg/dL Urine Glucose (UA) Negative (NEGATIVE) mg/dL Urine Ketones Negative (NEGATIVE) mg/dL Urine Occult Blood Negative (NEGATIVE) Urine Nitrite Negative (NEGATIVE) Urine Bilirubin Negative (NEGATIVE) Urine Urobilinogen 0.2 (0.2-1.0) EU/dL Ur Leukocyte Esterase Negative (NEGATIVE) Urine RBC None seen (0-2) #/HPF Urine WBC 0-2 A (NONE SEEN) #/HPF Ur Squamous Epith Cells Moderate A (NONE/RARE) #/LPF Urine Crystals Seen A (None Seen) #/HPF Amorphous Sediment Few Urine Bacteria Small A (NONE SEEN) #/HPF Urine Mucus None seen (NONE SEEN) Ur Culture Indicated? Already ordered Discharge Plan Discharge Chief Complaint: Altered Mental Status Clinical Impression: Anemia Patient Disposition: Admitted As Inpatient Time of Disposition Decision: 15:37 Prescriptions / Home Meds: No Action gabapentin 100 mg capsule 200 mg PO BID metoprolol tartrate 25 mg tablet 12.5 mg PO BID pantoprazole 40 mg tablet,delayed release (DR/EC) 40 mg PO DAILY sertraline 100 mg tablet 100 mg PO DAILY simvastatin 40 mg tablet 40 mg PO .qhs warfarin 1 mg tablet 3 mg PO DAILY Hold Instructions: Check INR on Thursday, 05/25 insulin degludec [Tresiba FlexTouch U-100] 100 unit/mL (3 mL) insulin pen 8 unit subcut QPM Humalog U-100 Insulin 100 unit/mL cartridge 1 sliding scale dose subcut TIDWM Rx Instructions: give 3-6 or 9 units depending on her sugar aspirin [Adult Aspirin Regimen] 81 mg tablet,delayed release (DR/EC) 81 mg PO DAILY ferrous sulfate [Feosol] 325 mg (65 mg iron) tablet 650 mg PO DAILY acetaminophen [Tylenol] 325 mg tablet 1,000 mg PO BID cholecalciferol (vitamin D3) 25 mcg (1,000 unit) tablet 25 mcg PO DAILY bumetanide 0.5 mg tablet 0.5 mg PO DAILY Qty: 30 0RF sulfamethoxazole-trimethoprim [Bactrim DS] 800-160 mg tablet 1 tab PO BID 7 Days Qty: 14 0RF Print Language: Citizen Of [place] Referrals: MEGAN VALLES [Primary Care Provider] - 1 week
--- NOTE | 2023-09-07 13:36 | ECG_ITS ---
The [facility] Test Date: 2023-09-07 Pat Name: ARTHUR YEN Department: Room: - Gender: Female Clinical Support Manager: : 1945 Requested By: Theresa Ramos Order Number: [id number] Reading MD: CHAU ARNOLD Measurements Intervals [place] Rate: 78 P: 90 NH: 150 QRS: -79 QRSD: 122 T: 90 QT: 432 QTc: 465 Interpretive Statements 1100 Sinus rhythm [address] depression 7200 Abnormal left axis deviation 9150 abnormal ECG Electronically Signed On 09-07-2023 18:47:46 EDT by CHAU ARNOLD
[2023-09-07] MEDS: 0.9 % SODIUM CHLORIDE 1,000 ML 999 ML IV (14:05)
[2023-09-07 14:21] LABS: Basophils Percent Auto 0.4 % (0.2-2.0); Eosinophils Absolute Auto 0.2 10^3/uL (0.0-0.7); Eosinophils Percent Auto 2.3 % (0.9-7.0); Immature Granulocytes Abs Auto 0.02 10^3/uL (0.00-0.03); Immature Granulocytes Pct Auto 0.3 % (0.0-0.5); Lymphocytes Absolute Auto 0.9 10^3/uL (1.2-3.8); Lymphocytes Percent Auto 13.6 % (20.5-60.0); Mean Corpuscular HGB Conc 29.5 g/dL (29.9-35.2); Mean Corpuscular Hemoglobin 29.9 pg (26.7-34.0); Mean Corpuscular Volume 101.2 fL (81.0-99.0); Mean Platelet Volume 9.6 fL (9.5-13.5); Monocytes Absolute Auto 0.7 10^3/uL (0.3-0.8); Monocytes Percent Auto 9.7 % (1.7-12.0); Neutrophils Absolute Auto 5.1 10^3/uL (1.4-6.5); Neutrophils Percent Auto 73.7 % (43.0-75.0); Platelet Count 416 10^3/uL (150-450); Red Blood Count 1.64 10^6/uL (4.20-5.40); Red Cell Distribution Width 16.8 % (11.0-15.0); White Blood Count 6.9 10^3/uL (4.0-11.0)
[2023-09-07 14:25] LABS: Hemoglobin 4.9 g/dL (12.0-16.0)
[2023-09-07 14:26] LABS: Hematocrit 16.6 % (36.0-48.0)
[2023-09-07 14:33] LABS: INR 1.68; Prothrombin Time 16.9 sec (9.0-11.6)
--- NOTE | 2023-09-07 14:34 | XR_ITS ---
The [address] [address] Patient Name: ARTHUR YEN MRN: [id number] date: 1945 Sex: F Assigned Patient Location: ER Current Patient Location: ER Accession/Order Number: [id number] Exam Date: 09/07/2023 14:30 Report Date: 09/07/2023 14:45 At the request of: CECILIA ANAND Procedure: XR chest 1V EXAMINATION: XR chest 1V HISTORY: Change in mental status COMPARISON: XR chest 02/20/2023 FINDINGS: LUNGS: Underexpanded lungs with suspected infiltrates within left lung base. VASCULATURE: No increased pulmonary vasculature. PLEURA: No pneumothorax, effusion, or pleural thickening. CARDIAC: Suspect cardiomegaly. MEDIASTINUM: Prior sternotomy. No abnormal widening. BONES: No fracture or visible bone lesion. OTHER: Negative. XR/XR chest 1V IMPRESSION: 1. Low lung volume examination with suspected mild to moderate left basilar infiltrates. Pleural effusion cannot be excluded. 2. No convincing right lung base infiltrates. Chronic elevated right hemidiaphragm. 3. Grossly stable cardiomegaly. Electronically authenticated by: AGNES CURTIS Date: 09/07/2023 14:45
[2023-09-07 14:42] LABS: Lactate/Lactic Acid 1.1 mmol/L (0.4-2.0)
[2023-09-07 14:43] LABS: Alanine Aminotransferase 22 U/L (14-59); Albumin Globulin Ratio 0.5; Albumin Level 1.9 g/dL (3.4-5.0); Alkaline Phosphatase 115 U/L (46-116); Aspartate Amino Transferase 24 U/L (15-37); Bilirubin Total 0.7 mg/dL (0.2-1.0); Calcium 8.7 mg/dL (8.5-10.1); Carbon Dioxide 27.7 mmol/L (21.0-32.0); Chloride 103 mmol/L (98-107); Estimated GFR (African America 44 (>=60); Estimated GFR (Non-African Ame 36 (>=60); Globulin 3.7 g/dL; Glucose 118 mg/dL (74-106); Potassium 3.7 mmol/L (3.5-5.1); Sodium 138 mmol/L (136-145); Total Protein 5.6 g/dL (6.4-8.2); Troponin I High Sensitivity 17.7 pg/mL (4.0-51.3)
[2023-09-07 15:19] LABS: Bilirubin Urine NEGATIVE (NEGATIVE); Blood Urine NEGATIVE (NEGATIVE); Clarity Urine CLEAR (CLEAR); Color Urine YELLOW (YELLOW); Glucose Urine UA NEGATIVE (NEGATIVE); Ketones Urine NEGATIVE (NEGATIVE); Leukocyte Esterase Urine NEGATIVE (NEGATIVE); Nitrite Urine NEGATIVE (NEGATIVE); Protein Urine 100 mg/dL (NEG/TRACE); Specific Gravity Urine 1.015 (1.005-1.025); Urobilinogen Urine 0.2 EU/dL (0.2-1.0)
[2023-09-07 15:21] LABS: Urine Microscopic Indicated YES
[2023-09-07 15:25] LABS: Bacteria Urine SMALL #/HPF (NONE SEEN); Crystals Seen? Seen #/HPF (None Seen); Mucus Urine NONE SEEN (NONE SEEN); RBC Urine NONE SEEN #/HPF (0-2); Squamous Epithelial Cell Urine MODERATE #/LPF (NONE/RARE); WBC Urine 0-2 #/HPF (NONE SEEN)
[2023-09-07 15:26] LABS: Amorphous Sediment Urine FEW; Urine Culture Indicated ALREADY ORDERED
--- NOTE | 2023-09-07 15:46 | CT_ITS ---
The [address] [address] Patient Name: ARTHUR YEN MRN: [id number] date: 1945 Sex: F Assigned Patient Location: ER Current Patient Location: ER Accession/Order Number: [id number] Exam Date: 09/07/2023 15:40 Report Date: 09/07/2023 16:11 At the request of: SHAIKH DEB Procedure: CT head/brain wo con CT head/brain wo con, 09/07/2023 3:40 PM EDT INDICATION: change in mental status COMPARISON: Prior CT of the head dated 02/16/2023 TECHNIQUE: Axial CT images of the brain from skull base to vertex, including portions of the face and sinuses, were obtained without contrast . Multiplanar reformatted images were generated and reviewed as needed. Dose reduction techniques were achieved by using automated exposure control and/or adjustment of mA and/or kV according to patient size and/or use of iterative reconstruction technique. FINDINGS: The cerebral sulci as well as ventricular system are enlarged consistent with moderate ex vacuo cerebral volume loss. . There is no intracranial mass, mass effect, midline shift, intra or extra-axial fluid collection or hemorrhage. Periventricular and centrum semiovale hypodensities are most likely consistent with microvascular ischemic changes. Retention cyst within the left sphenoid sinus is noted. The visualized portions of orbits, mastoid air cells as well as remainder of paranasal sinuses are unremarkable. There is no suspicious osteolytic or osteoblastic lesion. CT/CT head/brain wo con IMPRESSION: No acute intracranial process is noted. Electronically authenticated by: JOSEF DUKE Date: 09/07/2023 16:11
--- NOTE | 2023-09-07 17:13 | P.HP_ITS ---
<Statement entered by Shaikh Cooper MD - 09/07/23 18:09> This documentation has been reviewed and approved. Patient was not seen. Her cahrt reviewed, case discussed with ED provider, [facility] hospitalist. Agree with clinical documentation and treatment plan HPI H&P: HPI History of Present Illness Chief complaint: ALTERED MENTAL SYMPTOMATIC ANEMIS GI BLEED Narrative: 09/07/23 [id number] This is a 77-year-old female patient with a complicated past medical history as outlined below including DM 2, A-fib on warfarin, s/p MVR w/ bioprosthetic valve, CAD/CABG x 1, CKD 3b/4, anemia of chronic disease, HFpEF on Bumex, legally blind, and functionally nonambulatory; who presented to the ED from home d/t increased weakness and confusion over the last few days. Her spouse notes that her INR was 5.5 four days ago and he has been holding her warfarin since that time. She also developed a large hematoma on the L inner thigh without any known trauma. This is not painful for her. The pt is alert and oriented x 2 (not time) but can answer questions appropriately. She denies feeling SOB or dizzy, but her family at the bedside stated she has been noticeably weaker over the last few days. She presented to the ED for further evaluation. Workup in the ED revealed a profoundly low hemoglobin (4.9) and stable renal function at her baseline CKD 4. An INR was subtherapeutic at 1.68 and a lactic acid and troponin were within normal limits. UA was obtained that is unr emarkable with only a small bacteria but a urine culture is pending as the patient has a long history of recurrent UTIs. Chest x-ray was unremarkable. She is being admitted as an inpatient to the hospitalist service for suspected GI bleeding and ABLA. At the time of my exam the patient is resting comfortably on a cart in the ED. She is pale but does not appear short of breath and is not tachycardic. The family denies any known melena or hematochezia. The patient always has black tarry stools because of iron supplementation. They have not noted that they have changed in consistency or frequently over the last few days. It has been several years since the patient had any scopes. Family also notes that her PCP recently increased her Bumex from half to 1 mg daily due to increased peripheral edema. Otherwise the patient denies any complaints and states she is feeling fine . Opioid HPI Opioid Management Most Recent Opioid Data: Last Pain Scale 0 05/22/23 08:56 Last Pain Intensity 0 05/21/23 13:23 Last ORT Total Score 1 09/07/23 16:38 Last ORT Risk Category Low Risk 09/07/23 16:38 Review of Systems ROS Status of ROS 10 or more systems reviewed and unremark able except as noted in history and below [facility] Medical History (Updated 09/07/23 @ 17:26 by Joie Rosenthal NP) Thrombocytosis ?D75.839 - Thrombocytosis, unspecified (ICD-10) Paroxysmal atrial fibrillation ?I48.0 - Paroxysmal atrial fibrillation (ICD-10) Chronic heart failure with preserved ejection fraction (HFpEF) ?I50.32 - Chronic diastolic (congestive) heart failure (ICD-10) Depression ?F32.A - Depression, unspecified (ICD-10) DM neuropathies ?E11.40 - Type 2 diabetes mellitus with diabetic neuropathy, unspecified (ICD-10) Abnormal echocardiogram ?R93.1 - Abnormal findings on diagnostic imaging of heart and coronary circulation (ICD-10) Hypothyroid ?E03.9 - Hypothyroidism, unspecified (ICD-10) Weakness ?R53.1 - Weakness (ICD-10) Frequent falls ?R29.6 - Repeated falls (ICD-10) Open wound of right thigh ?S71.101A - Unspecified open wound, right thigh, initial encounter (ICD-10) Heart failure ?I50.9 - Heart failure, unspecified (ICD-10) A-fib ?I48.91 - Unspecified atrial fibrillation (ICD-10) CAD (coronary artery disease) ?I25.10 - Atherosclerotic heart disease of [place] coronary artery without angina pectoris (ICD-10) Chronic respiratory failure ?J96.10 - Chronic respiratory failure, unspecified whether with hypoxia or hypercapnia (ICD-10) Charcot foot due to diabetes mellitus ?E11.610 - Type 2 diabetes mellitus with diabetic neuropathic arthropathy (ICD-10) Type 2 diabetes mellitus with hyperglycemia ?E11.65 - Type 2 diabetes mellitus with hyperglycemia (ICD-10) CKD (chronic kidney disease) stage 4, GFR 15-29 ml/min ?N18.4 - Chronic kidney disease, stage 4 (severe) (ICD-10) Anemia in chronic kidney disease ?N18.9 - Chronic kidney disease, unspecified (ICD-10) ?D63.1 - Anemia in chronic kidney disease (ICD-10) Surgical History (Updated 02/17/23 @ 10:20 by Joie Rosenthal NP) Hx of CABG ?Z95.1 - Presence of aortocoronary bypass graft (ICD-10) History of mitral valve repair ?Z98.890 - Other specified postprocedural states (ICD-10) Heart valve replaced ?Z95.2 - Presence of prosthetic heart valve (ICD-10) Family History (Updated 01/09/23 @ 23:22 by Flavia Jensen) Mother Family history of diabetes mellitus Father Family history of diabetes mellitus Family history of myocardial infarction Social History Within the past year, how often did you have a drink containing alcohol: never Within the past year, how often did you have six or more drinks on one occasion: never Score interpretation: A score less than 3 is consistent with normal alcohol consumption. 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 Known occupational exposures/hazards: No Highest level of school completed/degree received: high school graduate Do you want help with school or training: No Are you now , , , , never or living with a partner: In a typical week, how many times do you talk on the telephone with family, friends, or neighbors: 3 or more times per week How often do you get together with friends or relatives: 3 or more times per week How often do you attend amish or oriental orthodox services: 4 or more times per year Do you belong to any clubs or organizations such as amish groups unions, fraternal or athletic groups, or school groups: no Total score: 3 Score interpretation: A score of greater than or equal to 2 indicates the lowest level of social isolation. Little interest or pleasure in doing things: not at all Feeling down, depressed, or hopeless: not at all Feel stressed/tense/nervous/anxious/difficulty sleeping: only a little Due to disability, difficulty making decisions: No Do you think of yourself as: straight/heterosexual Gender Identity: female Meds Home Medications and Allergies Home Medications ?Medication ?Instructions ?Recorded ?Confirmed ?Type aspirin 81 mg tablet,delayed 81 mg PO DAILY 01/09/23 09/07/23 History release (Adult Aspirin Regimen) ferrous sulfate 325 mg (65 mg 650 mg PO DAILY 01/09/23 09/07/23 History iron) tablet (Feosol) insulin degludec 100 unit/mL (3 8 unit subcut QPM 01/09/23 09/07/23 History mL) subcutaneous pen (Tresiba FlexTouch U-100 insulin) insulin lispro 100 unit/mL 1 sliding scale dose subcut TIDWM 01/09/23 09/07/23 History subcutaneous cartridge (Humalog U-100 Insulin) metoprolol tartrate 25 mg tablet 12.5 mg PO BID 01/09/23 09/07/23 History pantoprazole 40 mg tablet,delayed 40 mg PO DAILY 01/09/23 09/07/23 History release sertraline 100 mg tablet 100 mg PO DAILY 01/09/23 09/07/23 History simvastatin 40 mg tablet 40 mg PO .qhs 01/09/23 09/07/23 History warfarin 1 mg tablet 3 mg PO DAILY 01/09/23 09/07/23 History acetaminophen 325 mg tablet 1,000 mg PO BID 05/20/23 09/07/23 History (Tylenol) bumetanide 0.5 mg tablet 1 mg PO DAILY 09/07/23 09/07/23 History levothyroxine 25 mcg tablet 25 mcg PO QDAY 09/07/23 09/07/23 History Allergies Allergy/AdvReac Type Severity Reaction Status Date / Time No Known Drug Allergies Allergy Verified 01/07/23 14:19 Exam Constitutional Vital Signs, click to edit/add: Last Vital Signs Temp 97.6 F 09/07/23 16:42 Pulse 80 09/07/23 16:42 Resp 16 09/07/23 16:42 BP 139/67 09/07/23 16:42 Pulse Ox 94 L 09/07/23 16:42 O2 Del Method Room Air 09/07/23 16:42 Common normals: no apparent distress, oriented x3, alert and well nourished General appearance: cooperative Orientation/consciousness: Yes awake HENNY Common normals: normocephalic, head/scalp atraumatic, hearing grossly normal bilaterally, external nose normal and moist oral mucous membranes Eye Common normals: conjunctivae normal and no scleral icterus Visual bonner: other (Legally blind) Alignment: alignment normal Sclera: sclera abnormal Laterality of scleral abnormality: left (Scleral scarring) Neck & C-Spine Common normals: full ROM, supple and no JVD Chest Common normals: inspection of chest normal Chest: symmetrical chest wall rise Respiratory Common normals: normal respiratory effort, no retractions, no use of accessory muscles and clear to auscultation bilaterally Effort & inspection: able to speak in complete sentences Auscultation: diminished lung sounds (BLL) Cardio Common normals: no JVD, regular rate, regular rhythm, S1 normal heart sound, S2 normal heart sound, no gallops, no clicks, no murmurs, no rub and peripheral pulses 2+ throughout Heart sounds: murmur (HSM 2/6) GI Common normals: Normal to inspection, nondistended, normoactive bowel sounds present, soft to palpation, non-tender, no hepatosplenomegaly, no masses and no bruits Bladder/kidney exam: bladder normal to palpation Back & Pelvis Common normals: thoracic and lumbar spine normal to inspection Extremity Common normals: normal capillary refill General: normal exam except as noted and edema (BUE tr-1+, BLE 2-3+); no clubbing and no cyanosis Neuro Len[place] Coma Scale: GCS not evaluated Common normals: CN's II-XII intact bilaterally, moves all extremities, no focal motor deficits and no sensory deficits noted Speech: speech normal Motor exam: strength 5/5 throughout Psych Common normals: mental status grossly normal, thought process normal, affect normal and activity/motor behavior normal Results Labs Labs: Short CBC 09/07/23 Range/Units 14:10 WBC 6.9 (4.0-11.0) 10^3/uL Hgb 4.9 L* (12.0-16.0) g/dL Hct 16.6 L* (36.0-48.0) % Plt Count 416 (150-450) 10^3/uL BMP 09/07/23 14:10 Sodium 138 Potassium 3.7 Chloride 103 Carbon Dioxide 27.7 BUN 55.0 H Creatinine 1.41 H Glucose 118 H Calcium 8.7 Liver Function 09/07/23 Range/Units 14:10 Total Bilirubin 0.7 (0.2-1.0) mg/dL AST 24 (15-37) U/L ALT 22 (14-59) U/L Alkaline Phosphatase 115 (46-116) U/L Albumin 1.9 L (3.4-5.0) g/dL Urine 09/07/23 Range/Units 14:46 Urine Color Yellow (YELLOW) Urine Clarity Clear (CLEAR) Urine pH 6.0 (5.0-9.0) Ur Specific [place] 1.015 (1.005-1.025) Urine Protein 100 A (NEG/TRACE) mg/dL Urine Glucose (UA) Negative (NEGATIVE) mg/dL Pulse Oximetry Attestation: I have reviewed the pertinent pulse oximetry results. Imaging Chest x-ray: Attestation: I have reviewed the pertinent imaging results. Radiologist's impression: IMPRESSION: 1. Low lung volume examination with suspected mild to moderate left basilar infiltrates. Pleural effusion cannot be excluded. 2. No convincing right lung base infiltrates. Chronic elevated right hemidiaphragm. 3. Grossly stable cardiomegaly. CT scan - head: Attestation: I have reviewed the pertinent imaging results. Radiologist's impression: IMPRESSION: No acute intracranial process is noted. Assessment and Plan Assessment and Plan (1) ABLA (acute blood loss anemia): Assessment and Plan: Acute * Adm inpatient * We expect greater than a 2 midnight stay for medically necessary hospital care including emergent PRBC transfusions, close monitoring of Hgb q6h, specialty general surgery care and possible emergent endoscopy/colonoscopy * Hgb 4.9 in the ED * Suspect acute blood loss in setting of warfarin coagulopathy, on baseline anemia of chronic disease * 2 un PRBCs ordered now * Lasix 20 mg between units * HH q6h * Transfuse further PRBCs as needed for Hgb < 7 * IV PPI BID * See GIB * CBC, CMP daily (2) GIB (gastrointestinal bleeding): Assessment and Plan: Acute/Suspected * Remote hx of gastric ulcers - on daily PPI * Hold home warfarin and aspirin * Pt recently supratherapeutic with her warfarin - INR 5.5 four days ago & warfarin has been held since * Hx of black stools from iron supplementation - no known melena but clinically suspected * Protonix IVP BID * c/s General Surgery - we appreciate Dr Mccartney's assistance with this pt's care * Clear liquid diet tonight, then NPO at midnight for possible endoscopy * LR at 50 ml/hr for gentle hydration while NPO (3) Acute metabolic encephalopathy: Assessment and Plan: Acute * Unclear etiology of increased confusion - possibly d/t low hgb * Pt appears at baseline mentation during exam (4) A-fib: Assessment and Plan: Chronic * Hold home warfarin d/t GIB * Continue home Lopressor for rate control (5) Heart failure: Assessment and Plan: Chronic * HFpEF * Continue home Bumex daily * Recently increased to 1mg Bumex daily per PCP d/t increased peripheral edema * Consider repeat 2D Echo pending clinical course * Daily weights/strict I&O * Lasix IVP to be given between PRBC units * BNP in AM and added on to ED sample to trend (6) Hypothyroid: Assessment and Plan: Chronic * Continue home levothyroxine (7) Depression: Assessment and Plan: Chronic * Continue home Sertraline (8) CAD (coronary artery disease): Assessment and Plan: Chronic * Continue home BB and statin * Hold home ASA for now d/t GIB (9) Type 2 diabetes mellitus with hyperglycemia: Assessment and Plan: Chronic * Continue home basal tresiba w/ pharmacy to substitute per formulary * Med SSI for glucose correction * Currently on clear liquid diet (10) CKD (chronic kidney disease) stage 4, GFR 15-29 ml/min: Assessment and Plan: Chronic * Stable at baseline CKD4 * Daily CMP (11) History of mitral valve repair: Assessment and Plan: Chronic * Hx of bioprosthetic valve in 2020 * Pt started on warfarin at that time and has been on it continuously since * Hold home warfarin for now Urinary Catheter Management Urinary Catheter Management Straight: Cath placed during this visit: yes Urethral indwelling: No Insertion date: 09/07/23 Insertion time: 14:30
[2023-09-07] MEDS: PANTOPRAZOLE SODIUM 40 MG VIAL IV ×2 (18:40→21:18)
[2023-09-07] MEDS: LEVOTHYROXINE SODIUM 25 MCG TABLET PO (18:40)
[2023-09-07] MEDS: FUROSEMIDE 20 MG/2 ML VIAL IVP ×2 (18:55→23:07)
[2023-09-07 21:15] LABS: Glucometer 111 mg/dL (74-106)
[2023-09-07] MEDS: ACETAMINOPHEN 500 MG TABLET 1000 MG PO (21:17)
[2023-09-07] MEDS: METOPROLOL TARTRATE 25 MG TABLET 12.5 MG PO (21:17)
[2023-09-07] MEDS: ATORVASTATIN CALCIUM 20 MG TABLET PO (21:17)
[2023-09-08] VITALS (22 sets, daily range): BP systolic 123–162; BP diastolic 68–87; PULSE 61–78; TEMP 36.3–36.7; O2SAT 90–96
[2023-09-08 00:30] LABS: Hematocrit 25.4 % (36.0-48.0)
[2023-09-08] MEDS: LACTATED RINGER'S SOLUTION 1,000 ML 50 ML IV (02:22)
[2023-09-08 05:15] LABS: Basophils Percent Auto 0.5 % (0.2-2.0); Eosinophils Percent Auto 0.5 % (0.9-7.0); Hemoglobin 8.5 g/dL (12.0-16.0); Immature Granulocytes Abs Auto 0.04 10^3/uL (0.00-0.03); Immature Granulocytes Pct Auto 0.6 % (0.0-0.5); Lymphocytes Percent Auto 16.7 % (20.5-60.0); Mean Corpuscular HGB Conc 31.5 g/dL (29.9-35.2); Mean Corpuscular Hemoglobin 30.6 pg (26.7-34.0); Mean Corpuscular Volume 97.1 fL (81.0-99.0); Mean Platelet Volume 9.3 fL (9.5-13.5); Monocytes Absolute Auto 0.6 10^3/uL (0.3-0.8); Monocytes Percent Auto 9.6 % (1.7-12.0); Neutrophils Absolute Auto 4.5 10^3/uL (1.4-6.5); Neutrophils Percent Auto 72.1 % (43.0-75.0); Platelet Count 352 10^3/uL (150-450); Red Blood Count 2.78 10^6/uL (4.20-5.40); Red Cell Distribution Width 20.8 % (11.0-15.0); White Blood Count 6.2 10^3/uL (4.0-11.0)
[2023-09-08] MEDS: LEVOTHYROXINE SODIUM 25 MCG TABLET PO (05:48)
[2023-09-08 05:55] LABS: Alanine Aminotransferase 19 U/L (14-59); Albumin Globulin Ratio 0.5; Albumin Level 1.9 g/dL (3.4-5.0); Alkaline Phosphatase 110 U/L (46-116); Anion Gap 13.4; Aspartate Amino Transferase 26 U/L (15-37); Bilirubin Total 1.1 mg/dL (0.2-1.0); Calcium 8.6 mg/dL (8.5-10.1); Carbon Dioxide 26.2 mmol/L (21.0-32.0); Chloride 104 mmol/L (98-107); Estimated GFR (African America 50 (>=60); Estimated GFR (Non-African Ame 41 (>=60); Globulin 3.6 g/dL; Glucose 77 mg/dL (74-106); Potassium 3.6 mmol/L (3.5-5.1); Sodium 140 mmol/L (136-145); Total Protein 5.5 g/dL (6.4-8.2)
--- NOTE | 2023-09-08 07:23 | P.GSCN_ITS ---
History of Present Illness Consult details Consult date: 09/07/23 Narrative: 78 yo F presented with anemia and altered mental status. Pt has a supratherapeutic INR over he weekend and her caregiver noted some dark stools. She has extensive past medical and surgical Hx and is on Coumadin for A fib and mitral valve replacement. She has a Hx of gastric ulcers too and takes a daily PPI. Her BNP was noted to be elevated as well. Today she is doing well and no complaints. Denies any n/v, sob, chest pain, f/c. She denies any pain in her left thigh. She does not believe she has any falls recently. No bloody BMs per RN this am or since admission. No hematemesis. Hgb 8.5 this am after blood transfusion yesterday. Review of Systems ROS Status of ROS 10 or more systems reviewed and unremark able except as noted in history and below [facility] Medical History (Updated 09/07/23 @ 17:26 by Joie Rosenthal NP) Thrombocytosis ?D75.839 - Thrombocytosis, unspecified (ICD-10) Paroxysmal atrial fibrillation ?I48.0 - Paroxysmal atrial fibrillation (ICD-10) Chronic heart failure with preserved ejection fraction (HFpEF) ?I50.32 - Chronic diastolic (congestive) heart failure (ICD-10) Depression ?F32.A - Depression, unspecified (ICD-10) DM neuropathies ?E11.40 - Type 2 diabetes mellitus with diabetic neuropathy, unspecified (ICD-10) Abnormal echocardiogram ?R93.1 - Abnormal findings on diagnostic imaging of heart and coronary circulation (ICD-10) Hypothyroid ?E03.9 - Hypothyroidism, unspecified (ICD-10) Weakness ?R53.1 - Weakness (ICD-10) Frequent falls ?R29.6 - Repeated falls (ICD-10) Open wound of right thigh ?S71.101A - Unspecified open wound, right thigh, initial encounter (ICD-10) Heart failure ?I50.9 - Heart failure, unspecified (ICD-10) A-fib ?I48.91 - Unspecified atrial fibrillation (ICD-10) CAD (coronary artery disease) ?I25.10 - Atherosclerotic heart disease of circle coronary artery without angina pectoris (ICD-10) Chronic respiratory failure ?J96.10 - Chronic respiratory failure, unspecified whether with hypoxia or hypercapnia (ICD-10) Charcot foot due to diabetes mellitus ?E11.610 - Type 2 diabetes mellitus with diabetic neuropathic arthropathy (ICD-10) Type 2 diabetes mellitus with hyperglycemia ?E11.65 - Type 2 diabetes mellitus with hyperglycemia (ICD-10) CKD (chronic kidney disease) stage 4, GFR 15-29 ml/min ?N18.4 - Chronic kidney disease, stage 4 (severe) (ICD-10) Anemia in chronic kidney disease ?N18.9 - Chronic kidney disease, unspecified (ICD-10) ?D63.1 - Anemia in chronic kidney disease (ICD-10) Surgical History (Updated 02/17/23 @ 10:20 by Joie Rosenthal NP) Hx of CABG ?Z95.1 - Presence of aortocoronary bypass graft (ICD-10) History of mitral valve repair ?Z98.890 - Other specified postprocedural states (ICD-10) Heart valve replaced ?Z95.2 - Presence of prosthetic heart valve (ICD-10) Family History (Updated 01/09/23 @ 23:22 by Flavia Jensen) Mother Family history of diabetes mellitus Father Family history of diabetes mellitus Family history of myocardial infarction Social History Within the past year, how often did you have a drink containing alcohol: never Within the past year, how often did you have six or more drinks on one occasion: never Score interpretation: A score less than 3 is consistent with normal alcohol consumption. Smoking status: Never smoker Second hand tobacco smoke exposure: No Non-prescribed substance use: denies use Previous occupational history: Known occupational exposures/hazards: No Highest level of school completed/degree received: 12th grade, no diploma Do you want help with school or training: No Are you now , , , , never or living with a partner: In a typical week, how many times do you talk on the telephone with family, friends, or neighbors: 3 or more times per week How often do you get together with friends or relatives: 3 or more times per week How often do you attend yazdanism or yazidi services: 4 or more times per year Do you belong to any clubs or organizations such as yazdanism groups unions, fraternal or athletic groups, or school groups: no Total score: 3 Score interpretation: A score of greater than or equal to 2 indicates the lowest level of social isolation. Little interest or pleasure in doing things: not at all Feeling down, depressed, or hopeless: not at all Feel stressed/tense/nervous/anxious/difficulty sleeping: only a little Due to disability, difficulty making decisions: No Do you think of yourself as: straight/heterosexual Gender Identity: female Meds Home Medications and Allergies Home Medications ?Medication ?Instructions ?Recorded ?Confirmed ?Type aspirin 81 mg tablet,delayed 81 mg PO DAILY 01/09/23 09/07/23 History release (Adult Aspirin Regimen) ferrous sulfate 325 mg (65 mg 650 mg PO DAILY 01/09/23 09/07/23 History iron) tablet (Feosol) insulin degludec 100 unit/mL (3 8 unit subcut QPM 01/09/23 09/07/23 History mL) subcutaneous pen (Tresiba FlexTouch U-100 insulin) insulin lispro 100 unit/mL 1 sliding scale dose subcut TIDWM 01/09/23 09/07/23 History subcutaneous cartridge (Humalog U-100 Insulin) metoprolol tartrate 25 mg tablet 12.5 mg PO BID 01/09/23 09/07/23 History pantoprazole 40 mg tablet,delayed 40 mg PO DAILY 01/09/23 09/07/23 History release sertraline 100 mg tablet 100 mg PO DAILY 01/09/23 09/07/23 History simvastatin 40 mg tablet 40 mg PO .qhs 01/09/23 09/07/23 History warfarin 1 mg tablet 3 mg PO DAILY 01/09/23 09/07/23 History acetaminophen 325 mg tablet 1,000 mg PO BID 05/20/23 09/07/23 History (Tylenol) bumetanide 0.5 mg tablet 1 mg PO DAILY 09/07/23 09/07/23 History levothyroxine 25 mcg tablet 25 mcg PO QDAY 09/07/23 09/07/23 History Allergies Allergy/AdvReac Type Severity Reaction Status Date / Time No Known Drug Allergies Allergy Verified 01/07/23 14:19 Exam Constitutional Vital Signs, click to edit/add: Last Vital Signs Temp 97.6 F 09/08/23 04:34 Pulse 70 09/08/23 06:00 Resp 18 09/08/23 04:34 BP 153/72 H 09/08/23 04:34 Pulse Ox 93 L 09/08/23 04:34 O2 Del Method Room Air 09/08/23 04:34 Common normals: no apparent distress and alert General appearance: cooperative and comfortable Orientation/consciousness: Yes awake HENMT Common normals: normocephalic Head and scalp: atraumatic Eye Common normals: EOMs intact bilaterally and conjunctivae normal Respiratory Common normals: normal respiratory effort and no retractions Cardio Common normals: regular rate Peripheral pulses: femoral pulses present GI Common normals: soft to palpation and non-tender Palpation: soft Other: no distention, no rebound Extremity Other: left medial upper thigh with bruising noted, no pulsitile mass, distal motor, sensation and pulses intact, compartment soft Neuro Sensorium/orientation: awake, alert and oriented to place Psych Appearance: grossly normal Attitude: calm Results Labs Labs: Abnormal lab results 09/07/23 09/07/23 09/07/23 Range/Units 14:10 14:46 15:06 RBC 1.64 L (4.20-5.40) 10^6/uL Hgb 4.9 L* (12.0-16.0) g/dL Hct 16.6 L* (36.0-48.0) % MCV 101.2 H (81.0-99.0) fL MCHC 29.5 L (29.9-35.2) g/dL RDW 16.8 H (11.0-15.0) % MPV (9.5-13.5) fL Lymph % (Auto) 13.6 L (20.5-60.0) % Eos % (Auto) (0.9-7.0) % Lymph # (Auto) 0.9 L (1.2-3.8) 10^3/uL Abs Immat Gran (auto) (0.00-0.03) 10^3/uL Imm/Tot Granulo (auto) (0.0-0.5) % PT 16.9 H (9.0-11.6) sec BUN 55.0 H (7.0-18.0) mg/dL Creatinine 1.41 H (0.55-1.02) mg/dL Est GFR ( Amer) 44 L (>=60) Est GFR (Non-Af Amer) 36 L (>=60) Glucose 118 H (74-106) mg/dL Total Bilirubin (0.2-1.0) mg/dL NT-Pro-B Natriuret Pep 28845.0 H* (<=1800.0) pg/mL Total Protein 5.6 L (6.4-8.2) g/dL Albumin 1.9 L (3.4-5.0) g/dL Urine Protein 100 A (NEG/TRACE) mg/dL Urine WBC 0-2 A (NONE SEEN) #/HPF Ur Squamous Epith Cells Moderate A (NONE/RARE) #/LPF Urine Crystals Seen A (None Seen) #/HPF Urine Bacteria Small A (NONE SEEN) #/HPF POC Glucose (74-106) mg/dL Crossmatch See Detail 09/07/23 09/08/23 09/08/23 Range/Units 21:10 00:25 04:28 RBC 2.78 L (4.20-5.40) 10^6/uL Hgb 8.0 L 8.5 L (12.0-16.0) g/dL Hct 25.4 L 27.0 L (36.0-48.0) % MCV (81.0-99.0) fL MCHC (29.9-35.2) g/dL RDW 20.8 H (11.0-15.0) % MPV 9.3 L (9.5-13.5) fL Lymph % (Auto) 16.7 L (20.5-60.0) % Eos % (Auto) 0.5 L (0.9-7.0) % Lymph # (Auto) 1.0 L (1.2-3.8) 10^3/uL Abs Immat Gran (auto) 0.04 H (0.00-0.03) 10^3/uL Imm/Tot Granulo (auto) 0.6 H (0.0-0.5) % PT (9.0-11.6) sec BUN 45.0 H (7.0-18.0) mg/dL Creatinine 1.25 H (0.55-1.02) mg/dL Est GFR ( Amer) 50 L (>=60) Est GFR (Non-Af Amer) 41 L (>=60) Glucose (74-106) mg/dL Total Bilirubin 1.1 H (0.2-1.0) mg/dL NT-Pro-B Natriuret Pep 70116.0 H* (<=1800.0) pg/mL Total Protein 5.5 L (6.4-8.2) g/dL Albumin 1.9 L (3.4-5.0) g/dL Urine Protein (NEG/TRACE) mg/dL Urine WBC (NONE SEEN) #/HPF Ur Squamous Epith Cells (NONE/RARE) #/LPF Urine Crystals (None Seen) #/HPF Urine Bacteria (NONE SEEN) #/HPF POC Glucose 111 H (74-106) mg/dL Crossmatch Diabetes panel 09/07/23 09/08/23 Range/Units 14:10 04:28 Sodium 138 140 (136-145) mmol/L Potassium 3.7 3.6 (3.5-5.1) mmol/L Chloride 103 104 (98-107) mmol/L Carbon Dioxide 27.7 26.2 (21.0-32.0) mmol/L BUN 55.0 H 45.0 H (7.0-18.0) mg/dL Creatinine 1.41 H 1.25 H (0.55-1.02) mg/dL Glucose 118 H 77 (74-106) mg/dL Calcium 8.7 8.6 (8.5-10.1) mg/dL AST 24 26 (15-37) U/L ALT 22 19 (14-59) U/L Alkaline Phosphatase 115 110 (46-116) U/L Total Protein 5.6 L 5.5 L (6.4-8.2) g/dL Albumin 1.9 L 1.9 L (3.4-5.0) g/dL Calcium panel 09/07/23 09/08/23 Range/Units 14:10 04:28 Calcium 8.7 8.6 (8.5-10.1) mg/dL Albumin 1.9 L 1.9 L (3.4-5.0) g/dL Pituitary panel 09/07/23 09/08/23 Range/Units 14:10 04:28 Sodium 138 140 (136-145) mmol/L Potassium 3.7 3.6 (3.5-5.1) mmol/L Chloride 103 104 (98-107) mmol/L Carbon Dioxide 27.7 26.2 (21.0-32.0) mmol/L BUN 55.0 H 45.0 H (7.0-18.0) mg/dL Creatinine 1.41 H 1.25 H (0.55-1.02) mg/dL Glucose 118 H 77 (74-106) mg/dL Calcium 8.7 8.6 (8.5-10.1) mg/dL Adrenal panel 09/07/23 09/08/23 Range/Units 14:10 04:28 Sodium 138 140 (136-145) mmol/L Potassium 3.7 3.6 (3.5-5.1) mmol/L Chloride 103 104 (98-107) mmol/L Carbon Dioxide 27.7 26.2 (21.0-32.0) mmol/L BUN 55.0 H 45.0 H (7.0-18.0) mg/dL Creatinine 1.41 H 1.25 H (0.55-1.02) mg/dL Glucose 118 H 77 (74-106) mg/dL Calcium 8.7 8.6 (8.5-10.1) mg/dL Total Bilirubin 0.7 1.1 H (0.2-1.0) mg/dL AST 24 26 (15-37) U/L ALT 22 19 (14-59) U/L Alkaline Phosphatase 115 110 (46-116) U/L Total Protein 5.6 L 5.5 L (6.4-8.2) g/dL Albumin 1.9 L 1.9 L (3.4-5.0) g/dL All other labs normal. Assessment and Plan Assessment and Plan (1) ABLA (acute blood loss anemia): (2) GIB (gastrointestinal bleeding): Assessment and Plan: 1. Cont PPI and goal INR below 2.0 while in hospital, monitor Hgb until stable 2. Dain bowel movements, ok for diet from gen surg stance 3. Monitor Left thigh bruising 4. PT/OT encourage activity/ up out of bed 5. Continue PPI therpay on d/c and close monitoring of INR levels as out patient to avoid supratherapeutic events (3) Acute metabolic encephalopathy: (4) A-fib: (5) Heart failure: (6) Hypothyroid: (7) Depression: (8) CAD (coronary artery disease): (9) Type 2 diabetes mellitus with hyperglycemia: (10) CKD (chronic kidney disease) stage 4, GFR 15-29 ml/min: (11) History of mitral valve repair:
[2023-09-08 07:48] LABS: Glucometer 73 mg/dL (74-106)
--- NOTE | 2023-09-08 08:00 | CA_ITS ---
Patient Name: ARTHUR YEN MR#: [id number] : 1945 Exam Date: 09/08/2023 Ordering Doctor: Joie Rosenthal ECHOCARDIOGRAM REPORT PROCEDURE: CA ECHO DOPPLER COMPLETE INDICATIONS: Elevated BNP COMPARISON: None. DESCRIPTION: COMPLETE ECHOCARDIOGRAM Real-time transthoracic echocardiography with 2D, M-mode, spectral and color flow Doppler performed. QUALITY: Technical quality was good. LEFT VENTRICLE: Normal chamber size. Moderate concentric left ventricular hypertrophy. D-shaped septum consistent with right ventricular pressure and/or volume overload. LV EF: Global left ventricular systolic function is normal. Visual estimation of left ventricular ejection fraction is 55-60%. No significant wall motion abnormalities. DIASTOLIC: Unable to assess diastolic function. E/E' consistent with significant volume overload. ATRIAL SEPTUM: Inadequately seen. LEFT ATRIUM: Difficult to access left atrial size due to shadow artifact. RIGHT ATRIUM: Mild dilatation. RIGHT VENTRICLE: Normal chamber size. Normal right ventricular systolic function. TRICUSPID VALVE: Thickened with normal mobility. Moderate regurgitation. Severe pulmonary hypertension. RVSP 72mmHg MITRAL VALVE: Bio-Prosthetic valve with Doppler normal flow. No evidence of mitral valve stenosis. No mitral regurgitation. Severe calcification of the mitral annulus and subvalvular apparatus. A hypermobile structure is seen close to the mitral valve, likely a calcified, redundant chordal structure. Differential diagnosis includes vegetation or thrombus. AORTIC VALVE: Normal trileaflet appearance. Moderately calcified aortic valve. No significant aortic valve stenosis. Trivial aortic regurgitation. AORTIC ROOT: Normal diameter and appearance. PULMONIC VALVE: Normal thickness and mobility. No stenosis. Moderate regurgitation. PERICARDIUM: No evidence of pericardial effusion. IVC: Normal size with no collapse. CONCLUSION: 1. Global left ventricular systolic function is normal; visually estimated ejection fraction is 55 to 60% 2. D-shaped septum consistent with right ventricular pressure and/or volume overload 3. Normal right ventricular size and systolic function 4. Moderately increased left ventricular wall thickness 5. Unable to assess diastolic function; E/E' ratio consistent with significant volume overload 6. The right atrium is dilated 7. Moderate tricuspid regurgitation 8. Severely elevated right ventricular systolic pressure; RVSP 72 mmHg 9. Bioprosthetic mitral valve is seen with normal Doppler flow 10. Severe calcification of the mitral annulus and subvalvular apparatus; a hypermobile structure is seen likely representing a calcified redundant chordal structure versus vegetation or thrombus recommend transesophageal echocardiography for further evaluation as clinically appropriate 11. Moderate pulmonic regurgitation Adult Echocardiography Procedure Report Left Ventricle LVEDD (3.7 - 5.6 cm): 4.06 cm LVESD (2.2 - 4.0 cm): 2.92 cm LVIVS thickness (0.6 - 1.2 cm): 1.12 cm LVPW thickness (0.5 - 1.0 cm): 0.86 cm e': 0.06 m/s E - e': 26.16 LVOT Max Gradient: 0.74 mm[Hg] LVOT Area (cm2): 0.43 m/s Peak Velocity (LVOT): 0.43 m/s Mean Velocity (LVOT): 0.29 m/s LVOT Diameter 1.79 cm Left Atrium Left Atrium Systolic Dimension: 3.89 cm Mitral Valve MV E to A Ratio: 2.27 Mitral Valve A-Wave Peak Velocity: 0.71 m/s Mitral Valve E-Wave Peak Velocity: 1.61 m/s Right Ventricle RV Internal Diastolic Dimension: 3.03 cm Aorta AO Root Diam: 2.89 cm Ascending Ao Diam: 2.59 cm Aortic Valve AoV Area (Peak J Carlos): 0.82 cm2, 0.94 cm2 AoV Area (VTI): 1.01 cm2, 0.97 cm2 Peak Velocity(Antegrade Flow): 1.15 m/s, 1.49 m/s Peak Gradient(Antegrade Flow): 5.33 mm[Hg], 8.87 mm[Hg] Mean Velocity(Antegrade Flow): 0.77 m/s, 0.87 m/s Mean Gradient(Antegrade Flow): 2.65 mm[Hg], 3.64 mm[Hg] Velocity Time Integral: 32.94 cm, 30.44 cm Tricuspid Valve Peak Velocity (Regurgitant Flow): 3.86 m/s, 3.89 m/s, 4.01 m/s Pulmonic Valve Mean Gradient: 1.40 mm[Hg] Mean Velocity: 0.55 m/s Peak Velocity: 0.80 m/s, 0.83 m/s Peak Gradient: 2.56 mm[Hg], 2.77 mm[Hg] Right Atrium Right Atrium Systolic Pressure: 41.28 ml, 41.28 ml Dictated by: Marcos Jamison M.D. on 09/09/2023 at 11:11 Approved by: Marcos Jamison M.D. on 09/09/2023 at 11:20
[2023-09-08] MEDS: PANTOPRAZOLE SODIUM 40 MG VIAL IV ×2 (08:29→20:47)
[2023-09-08] MEDS: BUMETANIDE 1 MG/4 ML VIAL IVP ×2 (08:29→20:47)
[2023-09-08] MEDS: FERROUS SULFATE 325 MG TABLET 650 MG PO (08:55)
[2023-09-08] MEDS: METOPROLOL TARTRATE 25 MG TABLET 12.5 MG PO ×2 (08:55→20:46)
[2023-09-08] MEDS: ACETAMINOPHEN 500 MG TABLET 1000 MG PO ×2 (08:55→20:47)
[2023-09-08] MEDS: SERTRALINE HCL 100 MG TABLET PO (08:55)
[2023-09-08 09:18] LABS: Hemoglobin 9.6 g/dL (12.0-16.0)
--- NOTE | 2023-09-08 10:00 | CM.NOTE ---
Rounds made with Dr. Gamboa, discussed reason for admission to hospital with pt and . Dr. Mccartney also to see pt for further recommendations.
--- NOTE | 2023-09-08 10:25 | US_ITS ---
The [address] [address] Patient Name: ARTHUR YEN MRN: [id number] date: 1945 Sex: F Assigned Patient Location: [place] Current Patient Location: [place] Accession/Order Number: [id number] Exam Date: 09/08/2023 10:26 Report Date: 09/08/2023 21:34 At the request of: MORRO CESAR Procedure: US extremity nonvascular LT Examination:US extremity nonvascular LT INDICATION:Thigh hematoma, r/o large fluid collection COMPARISON:None. TECHNIQUE:Real-time sonography of the left thigh was performed in the area of clinical concern. FINDINGS:There is a complex ill-defined avascular fluid collection in the left thigh medially corresponding to the area of clinical concern measuring 19.7 x 3.7 cm. US/US extremity nonvascular LT IMPRESSION: Complex ill-defined collection of fluid as above concerning for hematoma given the clinical history. Developing abscess cannot entirely be excluded. Electronically authenticated by: RENZO LIAO Date: 09/08/2023 21:34
[2023-09-08 11:23] LABS: Glucometer 127 mg/dL (74-106)
--- NOTE | 2023-09-08 11:37 | CM.NOTE ---
Discussed with pt and Important Message From Medicare, both verbalize understanding and signs paper per pt request. Original given to pt and copy placed on pt's chart.
--- NOTE | 2023-09-08 13:09 | P.PN_ITS ---
<Statement entered by Shaikh Cooper MD - 09/08/23 14:57> This documentation has been reviewed and approved. Seen and examined. Case discussed with ROSSI Salter. Agree with treatment plan and clinical decision making. Conservative management as per General Surgery. Hold Coumadin for now. Hb stable. C/w Protonix. On IV bumex for acute on chronic diastolic HF. ECHO ordered. Needs close inpatient monitoring for suspected GIB and acute on chronic diastolic HF. Progress Note: Subjective Subjective Interval history: 09/08/23904 Patient is sitting up in a bedside chair at the time of my exam. She is awake and alert and oriented to self and time but not place. The patient is legally blind which makes orientation to place difficult, but she answers all questions appropriately. She denies chest pain, shortness of breath, or N/V. Her hemoglobin is stabilized at 8.5 this morning. She has already been seen in consult by Dr. Mccartney, general surgeon, who recommends conservative management with PPIs and he wishes to avoid scoping the patient at this time as he believes the risk outweighs the benefit. OK to initiate Carafate ACHS as well. The patient's BNP that was added onto her ED labs last night was elevated and again on morning labs, although down slightly from the ER. We have increased her Bumex dosing to twice daily and will monitor her I's and O's very closely. She continues to appear volume overloaded, but is slightly improved from admission. Again, she denies SOB. A 2D echo has been ordered for today and is pending. We will also obtain an ultrasound of her left thigh due to the large hematoma present, to rule out a large fluid/blood collection. We do not have clinical concern for compartment syndrome at this time. Exam Constitutional Vital Signs, click to edit/add: Last Vital Signs Temp 98.0 F 09/08/23 11:08 Pulse 64 09/08/23 11:55 Resp 18 09/08/23 11:08 BP 123/71 09/08/23 11:08 Pulse Ox 93 L 09/08/23 11:08 O2 Del Method Room Air 09/08/23 11:08 Common normals: no apparent distress and alert General appearance: cooperative Orientation/consciousness: Yes awake HENIA Common normals: normocephalic, head/scalp atraumatic and hearing grossly normal bilaterally Eye Common normals: PERRL, EOMs intact bilaterally and no scleral icterus General eye: normal appearance of both eyes Chest Common normals: inspection of chest normal Chest: symmetrical chest wall rise Respiratory Common normals: normal respiratory effort, no use of accessory muscles and clear to auscultation bilaterally Effort & inspection: able to speak in complete sentences Auscultation: diminished lung sounds (Mild, RLL) Cardio Common normals: regular rate, regular rhythm, S1 normal heart sound, S2 normal heart sound and peripheral pulses 2+ throughout Heart sounds: murmur (HSM 2/6) GI Common normals: Normal to inspection, nondistended, normoactive bowel sounds present, soft to palpation, non-tender and no hepatosplenomegaly Bladder/kidney exam: bladder normal to palpation Extremity Common normals: normal to inspection and no calf tenderness General: edema (1-2+ BLE, knees to toes, greatest at instep); no clubbing and no cyanosis Neuro Common normals: CN's II-XII intact bilaterally, moves all extremities and no sensory deficits noted Psych Common normals: mental status grossly normal Progress Note: Objective Labs Labs: Short CBC 09/07/23 09/08/23 09/08/23 Range/Units 14:10 00:25 04:28 WBC 6.9 6.2 (4.0-11.0) 10^3/uL Hgb 4.9 L* 8.0 L 8.5 L (12.0-16.0) g/dL Hct 16.6 L* 25.4 L 27.0 L (36.0-48.0) % Plt Count 416 352 (150-450) 10^3/uL 09/08/23 Range/Units 09:11 WBC (4.0-11.0) 10^3/uL Hgb 9.6 L (12.0-16.0) g/dL Hct 31.0 L (36.0-48.0) % Plt Count (150-450) 10^3/uL BMP 09/07/23 09/08/23 14:10 04:28 Sodium 138 140 Potassium 3.7 3.6 Chloride 103 104 Carbon Dioxide 27.7 26.2 BUN 55.0 H 45.0 H Creatinine 1.41 H 1.25 H Glucose 118 H 77 Calcium 8.7 8.6 Liver Function 09/07/23 09/08/23 Range/Units 14:10 04:28 Total Bilirubin 0.7 1.1 H (0.2-1.0) mg/dL AST 24 26 (15-37) U/L ALT 22 19 (14-59) U/L Alkaline Phosphatase 115 110 (46-116) U/L Albumin 1.9 L 1.9 L (3.4-5.0) g/dL Urine 09/07/23 Range/Units 14:46 Urine Color Yellow (YELLOW) Urine Clarity Clear (CLEAR) Urine pH 6.0 (5.0-9.0) Ur Specific Rosine 1.015 (1.005-1.025) Urine Protein 100 A (NEG/TRACE) mg/dL Urine Glucose (UA) Negative (NEGATIVE) mg/dL Progress Note: A&P Assessment and Plan (1) ABLA (acute blood loss anemia): Assessment and Plan: Acute * Improving * Hgb 8.5 today * Continue to suspect acute blood loss in setting of warfarin coagulopathy, on baseline anemia of chronic disease * US L thigh to assess for large blood collection/hematoma at sight of large bruise - alternate etiology of anemia * Continue HH q6h * Transfuse further PRBCs as needed for Hgb < 7 * IV PPI BID * See GIB * CBC, CMP daily (2) GIB (gastrointestinal bleeding): Assessment and Plan: Acute/Suspected * Remote hx of gastric ulcers - on daily PPI * Continue to hold home warfarin and aspirin * Pt recently supratherapeutic with her warfarin - INR 5.5 four days ago & warfarin has been held since * Hx of black stools from iron supplementation - no known melena but still clinically suspected * Protonix IVP BID * c/s General Surgery - we appreciate Dr Mccartney's assistance with this pt's care * Conservative management only. Risk of scopes outweighs benefit * Resume clear liquid diet now, likely advance tomorrow if no active bleeding * Add Carafate BID to med regimen (3) Acute metabolic encephalopathy: Assessment and Plan: Acute * Resolved (4) A-fib: Assessment and Plan: Chronic * Continue to hold home warfarin d/t GIB * Continue home Lopressor for rate control * Attempt to obtain cardiology records from to confirm hx of A-fib. Pt and family deny a-fib hx. (5) Heart failure: Assessment and Plan: Chronic * Elevated BNP - 16,558 on AM labs * Continues to appear volume overloaded on exam, but no hypoxia or SOB * Increase home Bumex to BID dosing * Recently increased to 1mg Bumex daily per PCP d/t increased peripheral edema * 2D Echo today - pending * HFpEF per last echo 02/2023 w/ LVEF of 55-60% * Daily weights/strict I&O * BNP daily (6) Hypothyroid: Assessment and Plan: Chronic * Continue home levothyroxine (7) Depression: Assessment and Plan: Chronic * Continue home Sertraline (8) CAD (coronary artery disease): Assessment and Plan: Chronic * Continue home BB and statin * Hold home ASA for now d/t GIB (9) Type 2 diabetes mellitus with hyperglycemia: Assessment and Plan: Chronic * Continue home basal tresiba w/ pharmacy to substitute per formulary * Med SSI for glucose correction * Currently on clear liquid diet (10) CKD (chronic kidney disease) stage 4, GFR 15-29 ml/min: Assessment and Plan: Chronic * Remains stable at baseline CKD4 * Daily CMP (11) History of mitral valve repair: Assessment and Plan: Chronic * Hx of bioprosthetic valve in 2020 * Pt started on warfarin at that time and has been on it continuously since * Hold home warfarin for now d/t GIB Urinary Catheter Management Urinary Catheter Management Straight: Cath placed during this visit: yes Urethral indwelling: No Insertion date: 09/07/23 Insertion time: 14:30
[2023-09-08 15:03] LABS: Hematocrit 26.4 % (36.0-48.0); Hemoglobin 8.5 g/dL (12.0-16.0)
--- NOTE | 2023-09-08 16:12 | SWNOTE1 ---
LANA met with pt's daughter and in room. Pt was sleeping. Daughter and are the caretakers. Pt uses a lhu lift at home at times and has a wheelchair that was customized for her that leans back. Pt sleeps in recliner with waffles mattress on it and family respositons. Pt is able to still stand and pivot for family. Pt's PCP comes to the home as family can't get her in to the car anymore. PCP comes about 2x monthly. Pt's family has no concerns and plans on taking her home. They had [facility] in past and loved them but medicare stopped paying. They would like LANA to send referral to [facility] to see if they can come back in. LANA to send referral. Referral sent to [facility] . Referral included face sheet, ED note, H&P, provider notes, case management report, and PT/OT notes.
[2023-09-08] MEDS: SUCRALFATE 1 GM TABLET PO ×2 (16:47→21:40)
[2023-09-08] MEDS: ATORVASTATIN CALCIUM 20 MG TABLET PO (20:48)
[2023-09-08] MEDS: ENSURE CLEAR 237 ML LIQUID PO (20:48)
[2023-09-08] MEDS: INSULIN DETEMIR 300 UNIT/3 ML INSULN.PEN 8 UNIT SUBQ (20:50)
[2023-09-08 20:59] LABS: Hematocrit 27.5 % (36.0-48.0); Hemoglobin 8.8 g/dL (12.0-16.0)
[2023-09-09] VITALS (12 sets, daily range): BP systolic 148–171; BP diastolic 72–82; PULSE 61–74; TEMP 36.1–36.6; O2SAT 67–95
[2023-09-09 03:29] LABS: Basophils Percent Auto 0.3 % (0.2-2.0); Eosinophils Percent Auto 0.5 % (0.9-7.0); Hematocrit 29.8 % (36.0-48.0); Hemoglobin 9.3 g/dL (12.0-16.0); Immature Granulocytes Abs Auto 0.03 10^3/uL (0.00-0.03); Immature Granulocytes Pct Auto 0.4 % (0.0-0.5); Lymphocytes Absolute Auto 0.8 10^3/uL (1.2-3.8); Mean Corpuscular HGB Conc 31.2 g/dL (29.9-35.2); Mean Corpuscular Hemoglobin 29.2 pg (26.7-34.0); Mean Corpuscular Volume 93.7 fL (81.0-99.0); Mean Platelet Volume 9.4 fL (9.5-13.5); Monocytes Absolute Auto 0.7 10^3/uL (0.3-0.8); Monocytes Percent Auto 8.4 % (1.7-12.0); Neutrophils Absolute Auto 6.3 10^3/uL (1.4-6.5); Neutrophils Percent Auto 80.4 % (43.0-75.0); Platelet Count 403 10^3/uL (150-450); Red Blood Count 3.18 10^6/uL (4.20-5.40); Red Cell Distribution Width 21.5 % (11.0-15.0); White Blood Count 7.9 10^3/uL (4.0-11.0)
[2023-09-09 03:55] LABS: Anion Gap 8.9; Carbon Dioxide 29.6 mmol/L (21.0-32.0); Chloride 105 mmol/L (98-107); Glucose 123 mg/dL (74-106); Potassium 3.5 mmol/L (3.5-5.1); Sodium 140 mmol/L (136-145)
[2023-09-09 03:56] LABS: Alanine Aminotransferase 17 U/L (14-59); Albumin Globulin Ratio 0.6; Albumin Level 1.9 g/dL (3.4-5.0); Alkaline Phosphatase 110 U/L (46-116); Aspartate Amino Transferase 23 U/L (15-37); BUN Creatinine Ratio 33.1; Bilirubin Total 0.9 mg/dL (0.2-1.0); Calcium 8.8 mg/dL (8.5-10.1); Estimated GFR (African America 54 (>=60); Estimated GFR (Non-African Ame 44 (>=60); Globulin 3.4 g/dL; Total Protein 5.3 g/dL (6.4-8.2)
[2023-09-09] MEDS: LEVOTHYROXINE SODIUM 25 MCG TABLET PO (05:47)
--- NOTE | 2023-09-09 07:07 | PM.GSPN ---
Progress Note: A&P Assessment and Plan (1) ABLA (acute blood loss anemia): Assessment and Plan: 1. Cont PPI and goal INR below 2.0 while in hospital, Hgb stable, BP/HR stable, no plans for surgical intervention/ endoscopy 2. Dain bowel movements, ok for diet from gen surg stance 3. Monitor Left thigh bruising 4. PT/OT encourage activity/ up out of bed 5. Continue PPI therapy on d/c and close monitoring of INR levels as out patient to avoid supratherapeutic events. Contact General Surgery with any questions. Available as needed. (2) GIB (gastrointestinal bleeding): (3) Acute metabolic encephalopathy: (4) A-fib: (5) Heart failure: (6) Hypothyroid: (7) Depression: (8) CAD (coronary artery disease): (9) Type 2 diabetes mellitus with hyperglycemia: (10) CKD (chronic kidney disease) stage 4, GFR 15-29 ml/min: (11) History of mitral valve repair: Subjective Subjective Patient reports: no new complaints Interval history: Pt states she is doing fine this am. No complaints. Denies any f/c, n/v, sob. Her BP and HR have been stable. Hgb 9.3 this am. No bloody BMs reported. INR 1.68 yesterday. Pt has no abdominal complaints or discomfort. No reflux or gerd symptoms at this time. Exam Constitutional Vital Signs, click to edit/add: Last Vital Signs Temp 97.8 F 09/09/23 03:37 Pulse 74 09/09/23 04:00 Resp 16 09/09/23 03:37 BP 148/72 H 09/09/23 03:37 Pulse Ox 67 L 09/09/23 05:56 O2 Del Method Room Air 09/09/23 03:37 Common normals: no apparent distress and alert Orientation/consciousness: Yes awake HENMT Common normals: normocephalic Head and scalp: atraumatic Eye Common normals: EOMs intact bilaterally Conjunctiva: conjunctiva(e) normal Respiratory Common normals: normal respiratory effort and no retractions Cardio Common normals: regular rate Peripheral pulses: femoral pulses present GI Common normals: non-tender Palpation: soft Extremity Other: Left thigh with proximal medial bruising noted, compartment soft, distal motor and sensation intact Neuro Sensorium/orientation: awake and alert Speech: speech normal Psych Appearance: grossly normal Speech: normal speech Urinary Catheter Management Urinary Catheter Management Straight: Cath placed during this visit: yes Urethral indwelling: No Insertion date: 09/07/23 Insertion time: 14:30
[2023-09-09] MEDS: ACETAMINOPHEN 500 MG TABLET 1000 MG PO (08:37)
[2023-09-09] MEDS: SERTRALINE HCL 100 MG TABLET PO (08:37)
[2023-09-09] MEDS: METOPROLOL TARTRATE 25 MG TABLET 12.5 MG PO (08:37)
[2023-09-09] MEDS: FERROUS SULFATE 325 MG TABLET 650 MG PO (08:37)
[2023-09-09] MEDS: SUCRALFATE 1 GM TABLET PO ×2 (08:37→11:43)
[2023-09-09] MEDS: ENSURE CLEAR 237 ML LIQUID PO (08:38)
--- NOTE | 2023-09-09 09:16 | SWNOTE1 ---
[facility] is able to accept.
[2023-09-09 09:25] LABS: Hematocrit 30.9 % (36.0-48.0); Hemoglobin 9.7 g/dL (12.0-16.0)
[2023-09-09] MEDS: PANTOPRAZOLE SODIUM 40 MG VIAL IV (09:38)
[2023-09-09] MEDS: BUMETANIDE 1 MG/4 ML VIAL IVP (09:38)
--- NOTE | 2023-09-09 10:21 | CM.NOTE ---
Rounds made with Dr. Gamboa. Dr. Gamboa discussed plan of care with Mr./. Samreen. Cardiology to be consulted.
[2023-09-09 10:27] LABS: INR 1.84; Prothrombin Time 18.4 sec (9.0-11.6)
--- NOTE | 2023-09-09 11:50 | REH.PTDLY ---
Physical Therapy Daily Note PT Daily Note/Assess Start: 09/09/23 11:34 Freq: Status: Active Protocol: Document 09/09/23 11:34 ANASTASIIAUNASASCHA (Rec: 09/09/23 11:50 [facility] [id number]) Physical Therapy Daily Note/Assessment Time In 10:30 Time Out 10:48 Subjective Attempted earlier and pt eating breakfast, went back again and pt is agreeable. Therapeutic Exercise Minutes (minutes) 8 Therapeutic Exercise Units 1 Therapeutic Exercise Treatment Instructed pt in B LE supine exs AA for improved mobility and strength. Constant verbal cues needed for pt to perform exs, is easily distracted or ' zones out'. Instructed in seated LAQ with cues for pt to slow down and not let leg ' flop' back down 10x. Therapeutic Activity Minutes (minutes) 8 Therapeutic Activity Units 0 Bed Mobility Ability Maximum Assist,2 Person Assist Therapeutic Activity Comments Pt required Max A x2 for transfers. Sat bedside with cues for pt to lean forward and retro, Max A to maintain seated balance from behind. Pt also heavily leaning to the R . Cues for pt to lean to the L , does so and then goes back to the R. Also cues for pt to look ahead to prevent forward head posture but pt unable to maintain longer than 20 seconds. Total Therapy Minutes 16 Total Physical Therapy Units 1 Daily Note Summary Pt requires Max A x2 with transfers and Max A with seated balance. reports this has been baseline for pt recently. Possible DC to home later today per .
--- NOTE | 2023-09-09 13:04 | P.DS_ITS ---
<Statement entered by Shaikh Cooper MD - 09/09/23 15:25> This documentation has been reviewed and approved. Seen and examined. Hb stable. Case discussed with RN, Hospitalist POINT OF SALE ASSOCIATE. Patient has no known hx of Afib and given recurrent anemia requiring transfusion, will d/c coumadin and discharge on ASA. This was discussed with patient's PCP who will also ensure that she follows with Cardiology. Will need H&h checked before seeing her PCP. DS: Providers Provider Date of admission: 09/07/23 16:29 Primary care physician: MEGAN RAMOS Consults: 09/07/23 15:25 Occupational Therapy Eval and Treat Routine Reason for consultation: Ambulatory dysfunction/weakness Physical Therapy Eval and Treat Routine Reason for consultation: Ambulatory dysfunction/weakness 09/07/23 16:54 Consult to General Surgeon Routine Consulting Provider: Rigoberto Mccartney Reason for consultation: Susp GIB, ABLA Has provider been notified: Yes Discharging clinician: Joie Rosenthal DS: Diagnosis Discharge Diagnosis (1) ABLA (acute blood loss anemia): (2) GIB (gastrointestinal bleeding): (3) Acute metabolic encephalopathy: (4) Hematoma and contusion: Assessment and plan: L thigh (5) A-fib: (6) Heart failure: Assessment and plan: Acute on Chronic (7) Hypothyroid: (8) Depression: (9) CAD (coronary artery disease): (10) Type 2 diabetes mellitus with hyperglycemia: (11) CKD (chronic kidney disease) stage 4, GFR 15-29 ml/min: (12) History of mitral valve repair: DS: Summary Hospital Course Hospital Course: The patient was admitted with acute blood loss anemia with a profoundly low hemoglobin of 4.9 on admission, suspected GI bleed in setting of previous gastric ulceration and supratherapeutic on warfarin, left thigh hematoma, and mild acute metabolic encephalopathy. The patient's home warfarin was held at home prior to admission and this was continued to be held after admission to the hospital. She was transfused with 2 units of packed red cells and her keep hemoglobin recovered appropriately above 7 and remained stable throughout the rest of her admission. She was seen in consult by general surgeon, Dr. Mccartney, who recommended conservative management and did not pursue endoscopy or colonoscopy. Carafate was added to the patient's home PPI for further gastric protection as gastric bleeding was suspected. Patient had a large left thigh bruise noted on admission without any known traumatic injury, but her INR was 5.5 at home at the time of onset of bruising. A US of the left thigh was obtained which revealed a large fluid collection consistent with a hematoma. There is no evidence of compartment syndrome and as the patient's hemoglobin remained stable for 2 days after blood transfusion we do not believe she is still bleeding at the site of the hematoma. Her INR was subtherapeutic at 1.84 on the day of discharge. The patient's mild encephalopathy was likely secondary to her profound anemia and had completely resolved shortly after admission. Acute on chronic heart failure was also noted during this admission and the patient's home Bumex was increased to twice daily dosing during her stay with adequate urine output and reduction in peripheral edema. There was no evidence of hypoxia during this stay. A 2D echo obtained during this stay did confirm volume overload. The patient was discharged with instructions to take her Bumex twice daily for 3 more days then resume once daily dosing. The patient was also prescribed carafate for 1 month for gastric protection. The patient should follow up with her PCP in 5-7 days. She should obtain a CBC within the next week to continue to monitor for anemia. It is unclear in the patient's history if she is on warfarin due to atrial fibrillation or due to her mitral valve replacement. Her warfarin dosing was initiated at the time of her bioprosthetic valve placement (Jul 2020) and has been continued since that time. The pt has not followed closely with her biomass technician since her surgery, with only one FU visit noted in 2021. The patient and her deny a history of atrial fibrillation but we have found record of it in her chart. I discussed her case with the patient's PCP, Dr. Ramos, and she was able to confirm the patient did experience postoperative A-fib after her valve replacement and underwent successful cardioversion at that time. She was discharged from the hospital in 2020 on warfarin and no mention was made at her follow-up cardiology visit if warfarin should be continued. Due to the patient's difficulty maintaining a stable INR, her recurrent anemia, and risk for further GI bleeding, Dr. Ramos agrees that it is appropriate to discontinue her warfarin at this time. The patient is being discharged home on a full-strength aspirin daily and is asked to follow-up with her cardiology clinic as soon as possible to further discuss indications for warfarin versus aspirin therapy and/or a Watchman device. The patient and her are aware that if she is experiencing paroxysmal a-fib and is not on anticoagulation, then she is at greater risk for a CVA. She was discharged on a Holter monitor for 7 days to monitor for paroxysmal A-fib. She did not experience atrial fibrillation during this admission and all EKGs obtained at this facility reveal ed sinus rhythm. Time Spent with Patient Time attestation: Total time spent providing and/or coordinating discharge services: Time spent: greater than 30 minutes Specific discharge activities: Physical exam, discussion of discharge plan, questions answered. Exam Constitutional Vital Signs, click to edit/add: Last Vital Signs Temp 97.6 F 09/09/23 08:00 Pulse 66 09/09/23 12:00 Resp 13 09/09/23 08:00 BP 155/78 H 09/09/23 08:00 Pulse Ox 95 09/09/23 10:05 O2 Del Method Room Air 09/09/23 10:05 Common normals: no apparent distress and alert General appearance: cooperative Orientation/consciousness: Yes awake HENMT Common normals: normocephalic and head/scalp atraumatic Eye Common normals: EOMs intact bilaterally, conjunctivae normal and no scleral icterus Neck & C-Spine Common normals: no JVD Respiratory Common normals: normal respiratory effort, no use of accessory muscles and clear to auscultation bilaterally Effort & inspection: able to speak in complete sentences and symmetric chest movement Auscultation: diminished lung sounds (BLL) Cardio Common normals: no JVD, regular rate, regular rhythm, S1 normal heart sound, S2 normal heart sound and peripheral pulses 2+ throughout Heart sounds: murmur (HSM 3/6) GI Common normals: Normal to inspection, nondistended, normoactive bowel sounds present, soft to palpation and non-tender Bladder/kidney exam: bladder normal to palpation Extremity Common normals: normal to inspection, full ROM and normal capillary refill General: edema (Tr to 1+ BLE, significantly improved); no clubbing and no cyanosis Neuro Common normals: moves all extremities, no focal motor deficits and no sensory deficits noted Speech: speech normal Psych Common normals: mental status grossly normal and activity/motor behavior normal DS: Data Data Completed and Pending Labs on day of discharge: Labs from last 24 hours 09/09/23 09/09/23 09/09/23 10:09 09:20 03:23 WBC RBC Hgb 9.7 L Hct 30.9 L MCV MCH MCHC RDW Plt Count MPV Neut % (Auto) Lymph % (Auto) [place] % (Auto) Eos % (Auto) Baso % (Auto) Neut # (Auto) Lymph # (Auto) [place] # (Auto) Eos # (Auto) Baso # (Auto) Abs Immat Gran (auto) Imm/Tot Granulo (auto) PT 18.4 H INR 1.84 Sodium 140 Potassium 3.5 Chloride 105 Carbon Dioxide 29.6 Anion Gap 8.9 BUN 39.0 H Creatinine 1.18 H Est GFR ( Amer) 54 L Est GFR (Non-Af Amer) 44 L BUN/Creatinine Ratio 33.1 Glucose 123 H Calcium 8.8 Total Bilirubin 0.9 AST 23 ALT 17 Alkaline Phosphatase 110 NT-Pro-B Natriuret Pep 07254.0 H* Total Protein 5.3 L Albumin 1.9 L Globulin 3.4 Albumin/Globulin Ratio 0.6 09/09/23 09/08/23 09/08/23 03:04 20:53 14:51 WBC 7.9 RBC 3.18 L Hgb 9.3 L 8.8 L 8.5 L Hct 29.8 L 27.5 L 26.4 L MCV 93.7 MCH 29.2 MCHC 31.2 RDW 21.5 H Plt Count 403 MPV 9.4 L Neut % (Auto) 80.4 H Lymph % (Auto) 10.0 L [place] % (Auto) 8.4 Eos % (Auto) 0.5 L Baso % (Auto) 0.3 Neut # (Auto) 6.3 Lymph # (Auto) 0.8 L [place] # (Auto) 0.7 Eos # (Auto) 0.0 Baso # (Auto) 0.0 Abs Immat Gran (auto) 0.03 Imm/Tot Granulo (auto) 0.4 PT INR Sodium Potassium Chloride Carbon Dioxide Anion Gap BUN Creatinine Est GFR ( Amer) Est GFR (Non-Af Amer) BUN/Creatinine Ratio Glucose Calcium Total Bilirubin AST ALT Alkaline Phosphatase NT-Pro-B Natriuret Pep Total Protein Albumin Globulin Albumin/Globulin Ratio Imaging 2D Echo: My impression: Hypermobile structure seen on previous 2D Echo Radiologist's impression: CONCLUSION: 1. Global left ventricular systolic function is normal; visually estimated ejection fraction is 55 to 60% 2. D-shaped septum consistent with right ventricular pressure and/or volume overload 3. Normal right ventricular size and systolic function 4. Moderately increased left ventricular wall thickness 5. Unable to assess diastolic function; E/E' ratio consistent with significant volume overload 6. The right atrium is dilated 7. Moderate tricuspid regurgitation 8. Severely elevated right ventricular systolic pressure; RVSP 72 mmHg 9. Bioprosthetic mitral valve is seen with normal Doppler flow 10. Severe calcification of the mitral annulus and subvalvular apparatus; a hypermobile structure is seen likely representing a calcified redundant chordal structure versus vegetation or thrombus recommend transesophageal echocardiography for further evaluation as clinically appropriate 11. Moderate pulmonic regurgitation US Left Leg: Attestation: I have reviewed the pertinent imaging results. Radiologist's impression: IMPRESSION: Complex ill-defined collection of fluid as above concerning for hematoma given the clinical history. Developing abscess cannot entirely be excluded. Discharge Plan Discharge Disposition: Home Health Service Discharge Medications: New sucralfate 1 gram tablet 1 g PO Q6H 28 Days Qty: 112 0RF aspirin 325 mg tablet 325 mg PO DAILY Qty: 30 0RF bumetanide 1 mg tablet 1 mg PO BID 3 Days Qty: 6 0RF Rx Instructions: Take twice daily x 3 days, then resume daily dosing as usual Continued metoprolol tartrate 25 mg tablet 12.5 mg PO BID pantoprazole 40 mg tablet,delayed release (DR/EC) 40 mg PO DAILY sertraline 100 mg tablet 100 mg PO DAILY simvastatin 40 mg tablet 40 mg PO .qhs insulin degludec [Tresiba FlexTouch U-100] 100 unit/mL (3 mL) insulin pen 8 unit subcut QPM Humalog U-100 Insulin 100 unit/mL cartridge 1 sliding scale dose subcut TIDWM Rx Instructions: give 3-6 or 9 units depending on her sugar ferrous sulfate [Feosol] 325 mg (65 mg iron) tablet 650 mg PO DAILY acetaminophen [Tylenol] 325 mg tablet 1,000 mg PO BID levothyroxine 25 mcg tablet 25 mcg PO QDAY bumetanide 1 mg tablet 1 mg PO DAILY Discontinued warfarin 1 mg tablet 3 mg PO DAILY Hold Instructions: Check INR on Thursday, 05/25 aspirin [Adult Aspirin Regimen] 81 mg tablet,delayed release (DR/EC) 81 mg PO DAILY Outpatient Diagnostics: Complete Blood Count Auto Diff (Routine) Timeframe: 1 Week Facility: [facility] - Location: Patient Own Location Ordered By: Joie Rosenthal Activity: increase activity as tolerated Diet: advance to your usual diet Print Language: Ecuadorean Patient Instructions: Gastrointestinal Bleeding (DC) Activity Restrictions/Additional Instructions: - Obtain a CBC within 1 week to monitor hemoglobin closely - Wear a holter monitor x 1 week - Follow up with cardiology as soon as possible regarding coumadin vs aspirin and/or Watchman device. 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 Patient does not have cardiology but Dr Ramos will help manage cardiology needs at discharge.
--- NOTE | 2023-09-09 13:28 | SWNOTE1 ---
Pt is being discharged today. LANA sent over dc med list, CRF, and dc summary to [facility] .
--- NOTE | 2023-09-09 15:02 | PC.NURSE ---
[employer] Intelligence Officer Chief called patient's to find out who her physical therapy aid is. He states they do not see a physical therapy aid as their insurance does not cover who they used to see so their PCP Dr Ramos has been overseeing all cardiology needs. [employer] Officer Chief then called Dr Ramos's office to schedule follow up appt and the office staff there states that Dr Rachel romero does home visits for this patient. They will have to speak with Dr Ramos and their office will call the patient to schedule a time for a home visit.
--- NOTE | 2023-09-10 15:01 | CM.DCFOLLOWU ---
1st attempt 09/10/23, no answer
== END 2023-09-09 16:00 | disposition home health service (06) | DRG 811 ==
LOC: ER 15:37 → MS 09-08 08:56
PROVIDERS: Admitting Provider Internal Medicine; Emergency Provider Emergency Medicine Emergency Medical Services; PCP Family Medicine; Visit Provider Nurse Practitioner
DX: D62 Acute posthemorrhagic anemia (principal); G93.41 Metabolic encephalopathy; I50.33 Acute on chronic diastolic (congestive) heart failure; K92.2 Gastrointestinal hemorrhage, unspecified; I48.20 Chronic atrial fibrillation, unspecified; N18.4 Chronic kidney disease, stage 4 (severe); I13.0 Hypertensive heart and chronic kidney disease with heart failure and stage 1 through stage 4 chronic kidney disease, or unspecified chronic kidney disease; D68.32 Hemorrhagic disorder due to extrinsic circulating anticoagulants; E03.9 Hypothyroidism, unspecified; F32.A Depression, unspecified; I25.10 Atherosclerotic heart disease of native coronary artery without angina pectoris; E11.65 Type 2 diabetes mellitus with hyperglycemia; E11.22 Type 2 diabetes mellitus with diabetic chronic kidney disease; Z95.2 Presence of prosthetic heart valve; Z95.1 Presence of aortocoronary bypass graft; H54.8 Legal blindness, as defined in USA; Z87.440 Personal history of urinary (tract) infections; Z79.899 Other long term (current) drug therapy; Z79.890 Hormone replacement therapy; E11.40 Type 2 diabetes mellitus with diabetic neuropathy, unspecified; Z91.81 History of falling; Z79.01 Long term (current) use of anticoagulants; Z79.4 Long term (current) use of insulin; Z79.82 Long term (current) use of aspirin; D63.1 Anemia in chronic kidney disease; S70.12XA Contusion of left thigh, initial encounter; Z87.19 Personal history of other diseases of the digestive system; T45.515A Adverse effect of anticoagulants, initial encounter
CPT/HCPCS: 36415; 36430; 70450; 71045; 76882; 80053; 81001; 82948; 83605; 83880; 84484; 85014; 85018; 85025; 85610; 86850; 86900; 86901; 87086; 93005; 93242; 93306; 94761; 96361; 96374; 96375; 96376; 97110; 97163; 97165; 97530; 99285; G0328; P9016

== ENCOUNTER 2023-09-17 19:41 | Emergency (ER) | payer MEDICARE, OTHER, SELFPAY ==
[2023-09-17 19:43] VITALS: BP 172/84; PULSE 93; TEMP 36.8; O2SAT 93; BMI 37.5
--- NOTE | 2023-09-17 19:47 | PC.NURSE ---
Patient alert and oriented, answers all questions appropriately. Patient unsure why called EMS.
--- NOTE | 2023-09-17 19:53 | XR_ITS ---
The [address] [address] Patient Name: ARTHUR YEN MRN: [id number] date: 1945 Sex: F Assigned Patient Location: ED.MAIN Current Patient Location: ER Accession/Order Number: [id number] Exam Date: 09/17/2023 20:20 Report Date: 09/17/2023 20:38 At the request of: CONSUELO PEPPER Procedure: XR chest 1V EXAM: XR chest 1V at 2017 hours HISTORY: hypoxemia COMPARISON: 09/07/2023 TECHNIQUE: AP upright portable chest x-ray FINDINGS: The study somewhat limited by shallow inspiration. Atelectasis or infiltrates are seen at the lung bases with bilateral effusions. A calcified granuloma seen at the left apex. The upper lungs otherwise clear. There is no evidence of a pneumothorax. The heart appears mildly enlarged with prominence of the central pulmonary vasculature. Multiple sternal wire sutures are present. The osseous structures are grossly intact. XR/XR chest 1V IMPRESSION: Limited study. Bilateral pleural effusions are accompanied by atelectasis or infiltrates at the lung bases. The heart also appears mildly enlarged with vascular congestion. The overall appearance of the chest is unchanged. Electronically authenticated by: CÉSAR LEI Date: 09/17/2023 20:38
--- NOTE | 2023-09-17 19:53 | ED_ITS ---
HPI HPI - General Adult General Chief complaint: Altered Mental Status Stated complaint: Confusion Time Seen by Provider: 09/17/23 19:46 Source: patient Mode of arrival: ambulance Limitations: no limitations History of Present Illness HPI narrative: past history of Charcot joint. states she is non ambulatory . has brace right lower ext. Recent admission for GI bleed and UTI about 3 weeks ago. Tonight felt she was confused and called Squad. He is concerned she may have another UTI. She is not sure why she is here. No vomiting or pain. was on coumadin in the past. This was d/marleni during her last admission and now she is on aspirin. Related Data Home Medications ?Medication ?Instructions ?Recorded ?Confirmed ferrous sulfate 325 mg (65 mg 650 mg PO DAILY 01/09/23 09/07/23 iron) tablet (Feosol) insulin degludec 100 unit/mL (3 8 unit subcut QPM 01/09/23 09/07/23 mL) subcutaneous pen (Tresiba FlexTouch U-100 insulin) insulin lispro 100 unit/mL 1 sliding scale dose subcut TIDWM 01/09/23 09/07/23 subcutaneous cartridge (Humalog U-100 Insulin) metoprolol tartrate 25 mg tablet 12.5 mg PO BID 01/09/23 09/07/23 pantoprazole 40 mg tablet,delayed 40 mg PO DAILY 01/09/23 09/07/23 release sertraline 100 mg tablet 100 mg PO DAILY 01/09/23 09/07/23 simvastatin 40 mg tablet 40 mg PO .qhs 01/09/23 09/07/23 acetaminophen 325 mg tablet 1,000 mg PO BID 05/20/23 09/07/23 (Tylenol) levothyroxine 25 mcg tablet 25 mcg PO QDAY 09/07/23 09/07/23 bumetanide 1 mg tablet 1 mg PO DAILY 09/09/23 09/09/23 Previous Rx's ?Medication ?Instructions ?Recorded aspirin 325 mg tablet 325 mg PO DAILY #30 tabs 09/09/23 bumetanide 1 mg tablet 1 mg PO BID 3 days #6 tabs 09/09/23 sucralfate 1 gram tablet 1 g PO Q6H 4 weeks #112 tabs 09/09/23 Allergies Allergy/AdvReac Type Severity Reaction Status Date / Time No Known Drug Allergies Allergy Verified 01/07/23 14:19 Opioid HPI Opioid Management Most Recent Opioid Data: Last Pain Scale 0 09/09/23 05:29 Last Pain Intensity 0 05/21/23 13:23 Last ORT Total Score 1 09/07/23 16:38 Last ORT Risk Category Low Risk 09/07/23 16:38 Review of Systems ROS Status of ROS 10 or more systems reviewed and unremark able except as noted in history and below [facility] Medical History (Updated 09/17/23 @ 23:34 by Ephraim Canales MD) Thrombocytosis ?D75.839 - Thrombocytosis, unspecified (ICD-10) Paroxysmal atrial fibrillation ?I48.0 - Paroxysmal atrial fibrillation (ICD-10) Chronic heart failure with preserved ejection fraction (HFpEF) ?I50.32 - Chronic diastolic (congestive) heart failure (ICD-10) Depression ?F32.A - Depression, unspecified (ICD-10) DM neuropathies ?E11.40 - Type 2 diabetes mellitus with diabetic neuropathy, unspecified (ICD-10) Abnormal echocardiogram ?R93.1 - Abnormal findings on diagnostic imaging of heart and coronary circulation (ICD-10) Hypothyroid ?E03.9 - Hypothyroidism, unspecified (ICD-10) Weakness ?R53.1 - Weakness (ICD-10) Frequent falls ?R29.6 - Repeated falls (ICD-10) Open wound of right thigh ?S71.101A - Unspecified open wound, right thigh, initial encounter (ICD-10) Heart failure ?I50.9 - Heart failure, unspecified (ICD-10) A-fib ?I48.91 - Unspecified atrial fibrillation (ICD-10) CAD (coronary artery disease) ?I25.10 - Atherosclerotic heart disease of [place] coronary artery without angina pectoris (ICD-10) Chronic respiratory failure ?J96.10 - Chronic respiratory failure, unspecified whether with hypoxia or hypercapnia (ICD-10) Charcot foot due to diabetes mellitus ?E11.610 - Type 2 diabetes mellitus with diabetic neuropathic arthropathy (ICD-10) Type 2 diabetes mellitus with hyperglycemia ?E11.65 - Type 2 diabetes mellitus with hyperglycemia (ICD-10) CKD (chronic kidney disease) stage 4, GFR 15-29 ml/min ?N18.4 - Chronic kidney disease, stage 4 (severe) (ICD-10) Anemia in chronic kidney disease ?N18.9 - Chronic kidney disease, unspecified (ICD-10) ?D63.1 - Anemia in chronic kidney disease (ICD-10) Surgical History (Updated 02/17/23 @ 10:20 by Joie Rosenthal NP) Hx of CABG ?Z95.1 - Presence of aortocoronary bypass graft (ICD-10) History of mitral valve repair ?Z98.890 - Other specified postprocedural states (ICD-10) Heart valve replaced ?Z95.2 - Presence of prosthetic heart valve (ICD-10) Family History (Updated 01/09/23 @ 23:22 by Flavia Jensen) Mother Family history of diabetes mellitus Father Family history of diabetes mellitus Family history of myocardial infarction Social History Within the past year, how often did you have a drink containing alcohol: never Within the past year, how often did you have six or more drinks on one occasion: never Score interpretation: A score less than 3 is consistent with normal alcohol consumption. 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 Known occupational exposures/hazards: No Highest level of school completed/degree received: 12th grade, no diploma Do you want help with school or training: No Are you now , , , , never or living with a partner: In a typical week, how many times do you talk on the telephone with family, friends, or neighbors: 3 or more times per week How often do you get together with friends or relatives: 3 or more times per week How often do you attend judaism or alevism services: 4 or more times per year Do you belong to any clubs or organizations such as judaism groups unions, fraternal or athletic groups, or school groups: no Total score: 3 Score interpretation: A score of greater than or equal to 2 indicates the lowest level of social isolation. Little interest or pleasure in doing things: not at all Feeling down, depressed, or hopeless: not at all Feel stressed/tense/nervous/anxious/difficulty sleeping: only a little Due to disability, difficulty making decisions: No Do you think of yourself as: straight/heterosexual Gender Identity: female Exam Constitutional Vital Signs, click to edit/add: Last Vital Signs Temp 98.2 F 09/17/23 19:43 Pulse 97 H 09/17/23 22:15 Resp 18 09/17/23 22:15 BP 169/90 H 09/17/23 22:15 Pulse Ox 94 L 09/17/23 22:15 O2 Del Method Room Air 09/17/23 22:15 Common normals: no apparent distress, average body habitus and oriented x3 (AxOx2. not sure of the year. knows it 1999 something) HENMT Common normals: normocephalic and head/scalp atraumatic Eye Other: scarring overlying left pupil Respiratory Common normals: normal respiratory effort, no retractions, no use of accessory muscles and clear to auscultation bilaterally Cardio Common normals: regular rate, regular rhythm, S1 normal heart sound and S2 normal heart sound GI Common normals: Normal to inspection, nondistended, normoactive bowel sounds present, soft to palpation and non-tender Extremity Other: brace right lower ext. Neuro Common normals: oriented x3 (AxOx2. Not sure of date but knows it is 1999 mark ething), moves all extremities and no focal motor deficits Sensorium/orientation: awake and alert Psych Appearance: grossly normal Course Vital Signs Vital signs: Vital Signs Temperature 98.2 F 09/17/23 19:43 Pulse Rate 93 H 09/17/23 19:43 Respiratory Rate 16 09/17/23 19:43 Blood Pressure 172/84 H 09/17/23 19:43 Pulse Oximetry 93 L 09/17/23 19:43 Oxygen Delivery Method Room Air 09/17/23 19:43 Temperature 98.2 F 09/17/23 19:43 Pulse Rate 97 H 09/17/23 22:15 Respiratory Rate 18 09/17/23 22:15 Blood Pressure 169/90 H 09/17/23 22:15 Pulse Oximetry 94 L 09/17/23 22:15 Oxygen Delivery Method Room Air 09/17/23 22:15 Medical Decision Making MDM Narrative Medical decision making narrative: patient transferred to hospital via request of her because he felt she was confused and may have another UTI. She arrived in no distress and was not sure why she needed to be here. RA pulse ox 95%. cxray unchanged from past visit. Labs without findings of UTI. Does have anemia but improved from her last visit. Patient and family informed there are no findings at this time. Patient is awake talking to family and is requesting discharge Lab Data Labs: Lab Results 09/17/23 09/17/23 Range/Units 20:15 22:25 WBC 8.3 (4.0-11.0) 10^3/uL RBC 3.32 L (4.20-5.40) 10^6/uL Hgb 9.7 L (12.0-16.0) g/dL Hct 31.7 L (36.0-48.0) % MCV 95.5 (81.0-99.0) fL MCH 29.2 (26.7-34.0) pg MCHC 30.6 (29.9-35.2) g/dL RDW 17.9 H (11.0-15.0) % Plt Count 341 (150-450) 10^3/uL MPV 10.0 (9.5-13.5) fL Neut % (Auto) 81.0 H (43.0-75.0) % Lymph % (Auto) 9.9 L (20.5-60.0) % [place] % (Auto) 6.5 (1.7-12.0) % Eos % (Auto) 1.2 (0.9-7.0) % Baso % (Auto) 1.0 (0.2-2.0) % Neut # (Auto) 6.7 H (1.4-6.5) 10^3/uL Lymph # (Auto) 0.8 L (1.2-3.8) 10^3/uL [place] # (Auto) 0.5 (0.3-0.8) 10^3/uL Eos # (Auto) 0.1 (0.0-0.7) 10^3/uL Baso # (Auto) 0.1 (0.0-0.1) 10^3/uL Abs Immat Gran (auto) 0.03 (0.00-0.03) 10^3/uL Imm/Tot Granulo (auto) 0.4 (0.0-0.5) % PT 10.7 (9.0-11.6) sec INR 1.01 Sodium 138 (136-145) mmol/L Potassium 4.6 (3.5-5.1) mmol/L Chloride 104 (98-107) mmol/L Carbon Dioxide 28.2 (21.0-32.0) mmol/L Anion Gap 10.4 BUN 29.0 H (7.0-18.0) mg/dL Creatinine 0.94 (0.55-1.02) mg/dL Est GFR ( Amer) >60 (>=60) Est GFR (Non-Af Amer) 57 L (>=60) BUN/Creatinine Ratio 30.9 Glucose 225 H (74-106) mg/dL Lactate 0.8 (0.4-2.0) mmol/L Calcium 9.0 (8.5-10.1) mg/dL Troponin I High Sens 18.6 (4.0-51.3) pg/mL Urine Color Lt. yellow (YELLOW) Urine Clarity Clear (CLEAR) Urine pH 6.0 (5.0-9.0) Ur Specific [place] 1.015 (1.005-1.025) Urine Protein 100 A (NEG/TRACE) mg/dL Urine Glucose (UA) Negative (NEGATIVE) mg/dL Urine Ketones Negative (NEGATIVE) mg/dL Urine Occult Blood Trace-i (NEGATIVE) Urine Nitrite Negative (NEGATIVE) Urine Bilirubin Negative (NEGATIVE) Urine Urobilinogen 0.2 (0.2-1.0) EU/dL Ur Leukocyte Esterase Negative (NEGATIVE) Urine RBC 0-2 (0-2) #/HPF Urine WBC 0-2 A (NONE SEEN) #/HPF Ur Squamous Epith Cells Rare (NONE/RARE) #/LPF Urine Crystals None seen (None Seen) #/HPF Amorphous Sediment Rare Urine Bacteria None seen (NONE SEEN) #/HPF Urine Casts Seen A (NONE SEEN) #/LPF Hyaline Casts Few Urine Mucus Trace A (NONE SEEN) Ur Culture Indicated? No Discharge Plan Discharge Stand Alone Forms: Portal Instructions Chief Complaint: Altered Mental Status Clinical Impression: Hyperglycemia Patient Disposition: Home, Self-Care Prescriptions / Home Meds: No Action metoprolol tartrate 25 mg tablet 12.5 mg PO BID pantoprazole 40 mg tablet,delayed release (DR/EC) 40 mg PO DAILY sertraline 100 mg tablet 100 mg PO DAILY simvastatin 40 mg tablet 40 mg PO .qhs insulin degludec [Tresiba FlexTouch U-100] 100 unit/mL (3 mL) insulin pen 8 unit subcut QPM Humalog U-100 Insulin 100 unit/mL cartridge 1 sliding scale dose subcut TIDWM Rx Instructions: give 3-6 or 9 units depending on her sugar ferrous sulfate [Feosol] 325 mg (65 mg iron) tablet 650 mg PO DAILY acetaminophen [Tylenol] 325 mg tablet 1,000 mg PO BID levothyroxine 25 mcg tablet 25 mcg PO QDAY bumetanide 1 mg tablet 1 mg PO DAILY sucralfate 1 gram tablet 1 g PO Q6H 28 Days Qty: 112 0RF aspirin 325 mg tablet 325 mg PO DAILY Qty: 30 0RF bumetanide 1 mg tablet 1 mg PO BID 3 Days Qty: 6 0RF Rx Instructions: Take twice daily x 3 days, then resume daily dosing as usual Print Language: Montenegrin Instructions: Diabetic Hyperglycemia (ED) Additional Instructions: follow up with your doctor next week for recheck Referrals: MEGAN VALLES [Primary Care Provider] - 1 week
--- NOTE | 2023-09-17 19:54 | ECG_ITS ---
[facility] Test Date: 2023-09-17 Pat Name: ARTHUR YEN Department: Room: - Gender: Female Work Study Student: : [id number] Requested By: Theresa Ramos Order Number: [id number] Reading MD: CHAU ARNOLD Measurements Intervals [place] Rate: 90 P: 49 MS: 140 QRS: 269 QRSD: 106 T: 108 QT: 388 QTc: 436 Interpretive Statements 1100 Sinus rhythm 2440 Incomplete right bundle branch block Low voltage across the precordium 7100 Abnormal right axis deviation 9150 abnormal ECG Electronically Signed On 09-17-2023 23:13:53 EDT by CHAU ARNOLD
--- OUTSIDE RECORDS SUMMARY | 2023-09-17 19:54 | XMS_ITS | CCD ---
Author Organization [facility] Care Team Providers Care Green Inspector Name Role Phone EVELYN SINGHIL Unavailable Unavailable SELF, REFERRED Unavailable Unavailable SELF, REFERRED Unavailable Unavailable [place] Unavailable Unavailable STEPHEN, FELIPE R Unavailable Unavailable STEPHEN, FELIPE R Unavailable Unavailable STEPHEN, FELIPE R Unavailable Unavailable STEPHEN, FELIPE R Unavailable Unavailable UNKNOWN, PHYSICIAN Unavailable Unavailable UNKNOWN, PHYSICIAN Unavailable Unavailable DR THERESA VALLES Primary Care Unavailable PAY, DR SANFORD Attending Unavailable PAY, DR SANFORD Consulting Unavailable PAY, DR SANFORD Admitting Unavailable Juni Zimmerman Consulting Unavailable CHARLEY QUINTERO Consulting Unavailable DR THERESA VALLES Primary Care Unavailable CHARLEY QUINTERO Admitting Unavailable CHARLEY QUINTERO Attending Unavailable DR THERESA VALLES Primary Care Unavailable CHARLEY QUINTERO Admitting Unavailable CHARLEY QUINTERO Attending Unavailable CHARLEY QUINTERO Consulting Unavailable Theresa Valles MD Primary Care Provider [phone] Nawaf CRUZN.BODY DESIGNER, Sharon Unavailable [phone] Micaela Prince Unavailable Theresa Valles MD Primary Care Provider [phone] Nawaf WAGNER.BODY DESIGNER, Sharon Unavailable [phone] Theresa Valles MD Primary Care Provider [phone] Theresa Valles MD Primary Care Provider Theresa Valles MD Unavailable Theresa Valles MD Primary Care Provider Theresa Valles Primary Care Unavailable Charley Quintero Attending Unavailable Charley Quintero Admitting Unavailable THERESA VALLES Attending Unavailable WONDERLY, THERESA B Attending Unavailable WONDERLY, THERESA B Attending Unavailable WONDERLY, THERESA B Attending Unavailable WONDERLY, THERESA B Attending Unavailable WONDERLY, THERESA B Attending Unavailable WONDERLY, THERESA B Attending Unavailable WONDERLY, THERESA B Attending Unavailable WONDERLY, THERESA B Referring Unavailable WONDERLY, THERESA B Primary Care Unavailable WONDERLY, THERESA B Referring Unavailable WONDERLY, THERESA B Primary Care Unavailable VALONE JR EFRAIN L Attending Unavailable VALONE JR, EFRAIN L Referring Unavailable WONDERLY, THERESA B Primary Care Unavailable WONDERLY, THERESA B Referring Unavailable WONDERLY, THERESA B Primary Care Unavailable WONDERLY, THERESA B Referring Unavailable WONDERLY, THERESA B Primary Care Unavailable WONDERLY, THERESA B Referring Unavailable WONDERLY, THERESA B Primary Care Unavailable VALONE JR, EFRAIN L Referring Unavailable WONDERLY, THERESA B Primary Care Unavailable VALONE JR, EFRAIN L Referring Unavailable WONDERLY, THERESA B Primary Care Unavailable VALONE JR, EFRAIN L Referring Unavailable WONDERLY, THERESA B Primary Care Unavailable VALONE JR, EFRAIN L Referring Unavailable WONDERLY, THERESA B Primary Care Unavailable WONDERLY, THERESA B Referring Unavailable WONDERLY, THERESA B Primary Care Unavailable WONDERLY, THERESA B Referring Unavailable WONDERLY, THERESA B Primary Care Unavailable WONDERLY, THERESA B Referring Unavailable WONDERLY, THERESA B Primary Care Unavailable WONDERLY, THERESA B Referring Unavailable WONDERLY, THERESA B Primary Care Unavailable VALONE JR, EFRAIN L Referring Unavailable WONDERLY, THERESA B Primary Care Unavailable VALONE JR, EFRAIN L Referring Unavailable WONDERLY, THERESA B Primary Care Unavailable KARTHIK ACKERMAN Referring Unavailabl e WONDERLY, THERESA B Primary Care Unavailable VALONE JR, EFRAIN L Referring Unavailable WONDERLY, THERESA B Primary Care Unavailable WONDERLY, THERESA B Referring Unavailable WONDERLY, THERESA B Primary Care Unavailable WONDERLY, THERESA B Referring Unavailable WONDERLY, THERESA B Primary Care Unavailable WONDERLY, THERESA B Referring Unavailable WONDERLY, THERESA B Primary Care Unavailable WONDERLY, THERESA B Referring Unavailable WONDERLY, THERESA B Primary Care Unavailable WONDERLY, THERESA B Referring Unavailable WONDERLY, THERESA B Primary Care Unavailable Allergies Allergy Classification Reported Allergen(s) Allergy Type Date of Onset Reaction(s) Facility (7 sources) heparin Drug Allergy 1 Other: See Comments, Other [facility] Work Phone: (2 sources) Amoxicillin / Clavulanate Drug Allergy Unknown [facility] Other (8 sources) Potassium Chloride Drug Allergy 3 Unknown [facility] (7 sources) Darvocet-N 100 Drug allergy Unknown [facility] Other (5 sources) Amoxicillin / Clavulanate Drug Allergy Unknown [facility] Other (3 sources) Potassium Chloride Drug Allergy 2 Other [facility] (4 sources) Propoxyphene Drug Allergy 2 Hives [facility] (3 sources) Amoxicillin-Pot Clavulanate Drug Allergy 2 GI intolerance [facility] (2 sources) Acetaminophen; Translations: [acetaminophen] Drug Allergy 3 [facility] (2 sources) Amoxicillin; Translations: [amoxicillin] Drug Allergy 3 [facility] (2 sources) Clavulanate; Translations: [clavulanic acid] Drug Allergy 3 [facility] (1 source) Potassium Chloride Drug Allergy 3 [facility] Repository (1 source) Propoxyphene Drug Allergy 3 [facility] Repository Medications Current Medications Medication Drug Class(es) Dates Sig (Normalized) Sig (Original) bumetanide 1 mg oral tablet (15 sources) Loop Diuretic Start: 09-27-2020 End: 05-13-2024 take 1 tablet by mouth in the morning bumetanide (Bumex) 1 MG tablet Indications: No refill needed. Updating script. Take 1 tablet (1 mg) by mouth in the morning. 0 05/14/2023 05/13/2024 Active take 1 tablet by binta th [...] the morning. 0 Active Continuous Blood Gluc Laminating Machine Tender (FreeStyle Tania 2 [place]) device (3 sources) Start: 05-22-19 23 Continuous Blood Gluc Laminating Machine Tender (FreeStyle Tania 2 [place]) device USE DIRECTED FOR 365 0 05/22/2022 Active Continuous Blood Gluc Sensor (FreeStyle Tania 2 Sensor) misc (3 sources) Start: 12-24-19 Continuous Blood Gluc Sensor (FreeStyle Tania 2 Sensor) misc 1 Units every 14 (fourteen) days. 0 12/23/2022 Active ergocalciferol 1.25 mg oral capsule (3 sources) Provitamin D2 Compound take 1 capsule by mouth every week ergocalciferol (Vitamin D-2) 1.25 MG (51728 UT) capsule Take 50,000 Units by mouth 1 (one) time per week. 0 Active ferrous sulfate 325 mg oral tablet (15 sources) take 325 mg by mouth in the morning Ferrous Sulfate (IRON PO) Take 325 mg by mouth in the morning. 0 Active take 1 tablet by binta th once daily at breakfast ferrous sulfate 325 (65 FE) mg tablet Ta ke 650 mg by mouth daily with breakfast. 0 Active take 2 tablets by mouth [...] by mouth once daily. FreeStyle Tania 2 [place] - (7 sources) Start: 04-23-2022 FreeStyle Tania 2 [place] - as directed in vitro 5 x day for 365 days Z79.4 Apr, Active FreeStyle Tania 2 [place] - as directed in vitro 5 x [...] Z79.4 Active gabapentin 100 mg oral capsule (14 sources) Anti-epileptic Agent Start: 08-24-2020 take 2 [...] insulin aspart, human 100 unt/ml pen injector (3 sources) Insulin Analog insulin aspart (NovoLOG FLEXPEN) 100 UNIT/ML pen Inject under the skin 3 (three) times a day before meals. Per sliding scale 0 Active 3 ml insulin degludec 100 unt/ml pen injector (6 sources) Insulin Analog Start: 10-22-2022 Tresiba FlexTouch [...] metoprolol tartrate (Lopressor) 12.5 mg split tablet (2 sources) take 0.5 tablet by mouth in the morning metoprolol tartrate (Lopressor) 12.5 mg split tablet Take 0.5 tablets by mouth in the morning and 0.5 tablets before bedtime. 0 Active Multi Complete - (7 sources) Multi Complete - as directed Orally Active fmhfbnzu-dais-DR-calcium &mins (THERAGRAN-M) 9 mg iron-400 mcg tablet (1 source) fnyepuuc-ugwt-SZ -calcium &mins (THERAGRAN-M) 9 mg iron-400 mcg [...] in NaCl (PF) 0.9% 10 mL injection (Nextance) sertraline 100 mg oral tablet (15 sources) Serotonin Reuptake Inhibitor Start: 05-08-2023 take 1 tablet by mouth in the morning sertraline (Zoloft) 100 MG tablet Indications: Depression, unspecified depression type (CMS/HCC) Take 1 tablet (100 mg) by mouth in the morning. 90 tablet 3 05/08/2023 Active Comment on above: Take 100 mg by mouth once daily. simvastatin 40 mg oral tablet (11 sources) HMG-CoA Reductase Inhibitor simvastatin (Zocor) 40 MG tablet simvastatin 40 mg tablet 0 Active 125 ml sodium chloride 9 [...] MG TABLET. 30 tablet 3 11/14/2022 Active take 1 tablet by mouth every oth er day warfarin (Coumadin) 1 MG tablet Take 1 tablet by mouth every other day 0 Active take 1 tablet by mouth every oth er day warfarin (Coumadin) 2 MG tablet Take 1 tablet by mouth every other day Take as directed per After Visit Summary. 0 Active warfarin (COUMAD IN) 1 mg tablet [...] Sig (Original) acetaminophen 325 mg oral tablet (6 sources) Start: 08-24-2020 take 325-650 mg by [...] Fever (specify). aspirin 81 mg chewable tablet (15 sources) Platelet Aggregation Inhibitor, Nonsteroidal Anti-inflammatory Drug Start: 08-24-2020 take 1 tablet by mouth once daily aspirin 81 mg chewable tablet Take 1 tablet by mouth once daily. 0 08/24/2020 Active take 1 tablet by mouth once aliyah y aspirin 81 MG EC tablet Take 81 mg by mouth 1 (one) time each day. 0 Active Comment on above: Take 1 [...] injectable solution (20 sources) Insulin Analog Start: 021 inject 12 [IU] by subcutaneous injection once [...] pantoprazole 20 mg delayed release oral tablet (14 sources) Proton Pump Inhibitor Start: 1 take 1 tablet by mouth once daily, then take 6 tablets by mouth in the morning pantoprazole DR (PROTONIX) 20 mg tablet Take 1 tablet by mouth DAILY (6 AM). 0 08/24/2020 Active take 1 tablet by mouth at bedtim e pantoprazole (ProtoNix) 40 MG EC tablet Take 40 mg by mouth at bedtime Do not crush, chew, or split. 0 Active Comment on above: Take 1 tablet by binta th DAILY (6 AM). Problems Active Problems Problem Classification Problem Date Documented Date Episodic/Chronic Acute posthemorrhagic anemia (1 source) Acute posthemorrhagic anemia; Translations: [Acute posthemorrhagic anemia] Onset: 09-15-2023 Episodic Cardiac dysrhythmias (16 sources) Atrial flutter; Translations: [Unspecified atrial flutter] Onset: 08-04-2020 08-24-2020 Chronic Chronic kidney disease (14 sources) Chronic kidney disease, stage 3 (moderate); Translations: [History of anemia] Onset: 01-16-2015 04-02-2021 Chronic Chronic ulcer of skin (3 sources) Pressure ulcer of other site, stage 2; Translations: [Pressure ulcer, other site] Onset: 12-23-2022 12-23-2022 Chronic Coagulation and hemorrhagic disorders (7 sources) Heparin-induced thrombocytopenia; 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)] Onset: 08-05-2020 08-24-2020 Chronic Congestive heart failure; nonhypertensive (20 sources) Acute right-sided heart failure; Translations: [Acute on chronic right heart failure] Onset: 07-06-2020 07-06-2020 Chronic Coronary atherosclerosis and other heart disease (8 sources) Coronary atherosclerosis; Translations: [Atherosclerotic heart disease of [place] coronary artery without angina pectoris] Onset: 07-31-2020 [...] polyneuropathy] Onset: 04-22-2017 Diabetes mellitus without complication (9 sources) Diabetes mellitus; Translations: [Type 2 diabetes mellitus without complications] Onset: 04-22-2017 04-02-2021 Chronic Disorders of lipid metabolism (18 sources) Hyperlipidemia, unspecified; Translations: [Hyperlipidemia] Onset: 2016 08-24-2020 Chronic Diverticulosis and diverticulitis (3 sources) Diverticulosis of colon; Translations: [Diverticulosis of large intestine without perforation or abscess without bleeding] Onset: 01-16-2015 12-23-2022 Chronic Esophageal disorders (4 sources) Gastroesophageal reflux disease; Translations: [Gastro-esophageal reflux disease without esophagitis] Onset: 01-16-2015 08-28-2022 Chronic Essential hypertension (17 sources) Hypertensive disorder; Translations: [Essential (primary) hypertension] Onset: 01-29-2018 08-24-2020 Chronic Heart valve disorders (20 sources) Aortic incompetence, non-rheumatic ; Translations: [Nonrheumatic aortic (valve) insufficiency] Onset: 07-06-2020 Chronic Infective arthritis and osteomyelitis (except that caused by tuberculosis or sexually transmitted di (1 source) Other acute osteomyelitis, left ankle and foot; Translations: [OTHER ACUTE OSTEOMYELITIS, LEFT ANKLE AND FOOT] Onset: 04-22-2017 Chronic Mood disorders (3 sources) Depressive disorder; Translations: [Depression] Onset: 01-16-2015 08-28-2022 Chronic Mood disorders (1 source) Major depressive disorder, single episode, unspecified; Translations: [MAJOR DEPRESSIVE DISORDER, SINGLE EPISODE, UNSPECIFIED] Onset: 04-22-2017 Nutritional deficiencies (13 sources) Vitamin D deficiency; Translations: [Vitamin D deficiency, unspecified] Onset: 01-16-2015 Chronic Open wounds of extremities (6 sources) Amputated toe; Translations: [Complete traumatic amputation of one unspecified lesser toe, initial encounter] Onset: 05-07-2017 Resolved: 12-31-2022 12-23-2022 Chronic Osteoarthritis (1 source) Primary osteoarthritis, left ankle and foot; Translations: [PRIMARY OSTEOARTHRITIS, LEFT ANKLE AND FOOT] Onset: 06-04-2017 Chronic Osteoporosis (1 source) Age-related osteoporosis without current pathological fracture; Translations: [AGE-RELATED OSTEOPOROSIS W/O CURRENT PATHOLOGICAL FRACTURE] Onset: 06-04-2017 Chronic Other aftercare (4 sources) 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; Translations: [NURSING HOME (CURRENT) USE OF INSULIN] Onset: 04-22-2017 Episodic Other bone disease and musculoskeletal deformities (1 source) Acquired absence of left great toe; Translations: [ACQUIRED ABSENCE OF LEFT GREAT TOE] Onset: 06-04-2017 Chronic Other bone disease and musculoskeletal deformities (3 sources) Absence of toe; Translations: [Acquired absence of left great toe] Onset: 05-07-2017 08-28-2022 Chronic Other bone disease and musculoskeletal deformities (3 sources) History of amputation of left great toe; Translations: [Acquired absence of left great toe] Onset: 10-04-2020 12-23-2022 Chronic Other ear and sense organ disorders (3 sources) Bilateral hearing loss; Translations: [Unspecified hearing loss, bilateral] Onset: 08-28-2022 08-28-2022 Chronic Other ear and sense organ disorders (3 sources) Hearing loss; Translations: [Unspecified hearing loss, unspecified ear] Onset: 10-27-2018 12-23-2022 Chronic Other hereditary and degenerative nervous system conditions (1 source) Hereditary spastic paraplegia; 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] Onset: 05-25-2023 Chronic Other nervous system disorders (3 sources) Carpal tunnel syndrome; Translations: [Carpal tunnel syndrome, unspecified upper limb] Onset: 08-28-2022 08-28-2022 Chronic Other nervous system disorders (3 sources) Chronic pain syndrome; Translations: [Chronic pain syndrome] Onset: 01-16-2015 08-28-2022 Chronic Other nutritional; endocrine; and metabolic disorders (1 source) Obesity, unspecified; Translations: [OBESITY UNSPECIFIED] Onset: 09-18-2020 Chronic Other nutritional; endocrine; and metabolic disorders (1 source) Body mass index (BMI) 40.0-44.9, adult; Translations: [BODY MASS INDEX BMI 40.0-44.9 ADULT] Onset: 09-18-2020 Chronic Other nutritional; endocrine; and metabolic disorders (7 sources) Body mass index 40+ - severely [...] Chronic Other nutritional; endocrine; and metabolic disorders (3 sources) Morbid obesity; Translations: [Morbid (severe) obesity due to excess calories] Onset: 10-17-2015 08-28-2022 Chronic Silvana-; endo-; and myocarditis; cardiomyopathy (except that caused by tuberculosis or sexually transmitted disease) (6 sources) Heart valve disorder; Translations: [Endocarditis, valve unspecified] Onset: 06-11-2020 08-28-2022 Chronic Peripheral and visceral atherosclerosis (7 sources) Peripheral vascular disease, unspecified; Translations: [Peripheral vascular disease, unspecified] Onset: 05-22-2020 08-22-2020 Chronic Residual codes; unclassified (1 source) Pain, unspecified; Translations: [PAIN UNSPECIFIED] Onset: 04-18-2021 Episodic Respiratory failure; insufficiency; arrest (adult) (6 sources) Chronic respiratory failure; Translations: [Chronic respiratory failure, unspecified whether with hypoxia or hypercapnia] Onset: 10-03-2020 08-28-2022 Chronic Sexually transmitted infections (not HIV or hepatitis) (3 sources) Tabetic neurosyphilis; 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] Onset: 12-23-2022 12-23-2022 Chronic Spondylosis; intervertebral disc disorders; other back problems (3 sources) Degeneration of thoracic intervertebral disc; Translations: [Other intervertebral disc degeneration, thoracic region] Onset: 09-28-2020 08-28-2022 Chronic Thyroid disorders (2 sources) Other specified hypothyroidism; Translations: [Hypothyroidism, unspecified] Onset: 03-23-2023 Chronic Unclassified (2 sources) Unknown / UNK(Unknown) Onset: 04-22-2017 Unclassified (2 sources) CONTACT W/AND (SUSP) EXPOS COVID-19; Translations: [CONTACT W/AND (SUSP) EXPOS COVID-19] Onset: 04-18-2021 Unclassified (1 source) COUGH, UNSPECIFIED; Translations: [COUGH, UNSPECIFIED] Onset: 04-18-2021 Urinary tract infections (1 source) Urinary tract infection, site not specified; Translations: [Urinary tract infection, site not specified] Onset: 09-15-2023 Episodic Viral infection (1 source) COVID-19; Translations: [COVID-19] Onset: 04-18-2021 Past or Other Problems Problem Classification Problem Date Documented Da te Episodic/Chronic Acute and unspecified renal failure (8 sources) Acute kidney failure, unspecified; Translations: [Acute renal failure syndrome] Onset: 04-22-2017 08-24-2020 Episodic Administrative/social admission (17 sources) Patient encounter status; Translations: [Persons encountering health services in other specified circumstances] Onset: 08-14-2020 08-24-2020 Episodic Complication of device; implant or graft (1 source) Breakdown (mechanical) of heart valve prosthesis, initial encounter; Translations: [Breakdown (mechanical) of heart valve prosthesis, initial encounter] Onset: 03-23-2023 Episodic Deficiency and other anemia (1 source) Other vitamin B12 deficiency anemias; Translations: [Other vitamin B12 deficiency anemias] Onset: 06-01-2023 Episodic Gangrene (1 source) Gangrene, not elsewhere classified; Translations: [GANGRENE, NOT ELSEWHERE CLASSIFIED] Onset: 04-22-2017 Episodic Gastrointestinal hemorrhage (7 sources) Hemorrhage of anus and rectum; Translations: [Gastrointestinal hemorrhage] Onset: 09-15-2020 Resolved: 01-01-2023 Episodic Malaise and fatigue (4 sources) Other fatigue; Translations: [Asthenia] Onset: 04-18-2021 09-10-2022 Episodic Other aftercare (2 sources) 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; Translations: [NURSING HOME CURRNT USE ANTICOAGULANTS] Onset: 09-18-2020 Episodic Other aftercare (1 source) skilled nursing (current) use of aspirin; Translations: [NURSING HOME CURRENT USE OF ASPIRIN] Onset: 09-18-2020 Episodic Other aftercare (10 sources) Long-term current use of insulin; Translations: [skilled nursing (current) use of insulin] Onset: 07-06-2017 08-28-2022 Episodic Other aftercare (3 sources) Long-term current use of anticoagulant; Translations: [skilled nursing (current) use of anticoagulants] Onset: 08-29-2022 08-29-2022 Episodic Other connective tissue disease (5 sources) Pain in left foot; Translations: [Other specified soft tissue disorders] Onset: 06-04-2017 Episodic Other injuries and conditions due to external causes (3 sources) History of fall; Translations: [History of falling] Onset: 09-10-2022 09-10-2022 Episodic Other lower respiratory disease (1 source) Shortness of breath; Translations: [SHORTNESS OF BREATH] Onset: 09-18-2020 Episodic Other lower respiratory disease (7 sources) Dyspnea; Translations: [Shortness of breath] Onset: 07-06-2020 07-06-2020 Episodic Other lower respiratory disease (3 sources) Snoring; Translations: [Snoring] Onset: 01-23-2021 12-23-2022 Episodic Other nervous system disorders (5 sources) Postoperative pain ; Translations: [Other acute postprocedural pain] Onset: 07-31-2020 08-24-2020 Episodic Other nervous system disorders (3 sources) Abnormal gait; Translations: [Unspecified abnormalities of gait and mobility] Onset: 05-16-2019 08-28-2022 Episodic Other screening for suspected conditions (not mental disorders or infectious disease) (1 source) Abnormal coagulation profile; Translations: [ABNORMAL COAGULATION PROFILE] Onset: 09-18-2020 Episodic Pleurisy; pneumothorax; pulmonary collapse (11 sources) Pleural effusion, not elsewhere classified; Translations: [Pleural effusion] Onset: 08-14-2020 Episodic Residual codes; unclassified (7 sources) History of tricuspid valve repair; Translations: [Other specified postprocedural states] Onset: 09-03-2020 10-16-2021 Episodic Residual codes; unclassified (1 source) Disorientation, unspecified; Translations: [Disorientation, unspecified] Onset: 06-04-2023 Episodic Skin and subcutaneous tissue infections (1 source) Cellulitis of left lower limb; Translations: [CELLULITIS OF LEFT LOWER LIMB] Onset: 04-22-2017 Episodic Spondylosis; intervertebral disc disorders; other back problems (3 sources) Spinal stenosis of lumbar region; Translations: [Spinal stenosis, lumbar region without neurogenic claudication] Onset: 08-06-2017 08-28-2022 Episodic Unclassified (1 source) CONTACT W/AND (SUSP) EXPOS COVID-19; Translations: [CONTACT W/AND (SUSP) EXPOS COVID-19] Onset: 04-15-2021 Unclassified (3 sources) Onset: 12-31-2022 12-31-2022 Results Test Name Value Interpretation Reference Range Facility CBC AND AUTO DIFFon 09-15-19 24 ABSOLUTE BASOPHIL 0.1 X10E9/L Normal 0.0-0.2 [facility] Comment on above: Performed By: #### PINR, CBCA, BMP, 3093 4-4 #### [facility] ([id number]) [address] [place] [address], [place] [address] ABSOLUTE NEUTROPHIL 5.9 X10E9/L Normal 1.5-6.6 [facility] Comment on above: Performed By: #### PINR, CBCA, BMP, 07-08 #### [facility] ([id number]) [address] [place] [address]482 Basophils/100 WBC (Bld) 0.8 % Normal [facility] Comment on above: Performed By: #### PINR, CBCA, BMP, 07-08 #### [facility] ([id number]) [address] [place] [address] [id number] Eosinophils (Bld) [#/Vol] 0.1 10*3/uL Normal 0.0-0.4 [facility] Comment on above: Performed By: #### PINR, CBCA, BMP, 07-08 #### [facility] ([id number]) [address] [place] [address] [phone] Eosinophils/100 WBC (Bld) 0.9 % Normal [facility] Comment on above: Performed By: #### PINR, CBCA, BMP, 07-08 #### [facility] ([id number]) [address] [place] [address] 51058 Erythrocyte distribution width (RBC) [Ratio] 18.5 % High 11.5-15.0 [facility] Comment on above: Performed By: #### PINR, CBCA, BMP, 07-08 #### [facility] ([id number]) [address] [place] [address] 58130 Hematocrit (Bld) [Volume fraction] 30.2 % Low 35-47 [facility] Comment on above: Performed By: #### PINR, CBCA, BMP, 07-08 #### [facility] ([id number]) [address] [place] [address] 47807 Hemoglobin (Bld) [Mass/Vol] 10.2 g/dL Low 11.7-15.5 [facility] Comment on above: Performed By: #### PINR, CBCA, BMP, 07-08 #### [facility] ([id number]) [address] [place] [address] 70456 Lymphocytes (Bld) [#/Vol] 0.6 10*3/uL Low 1.0-3.5 [facility] Comment on above: Performed By: #### PINR, CBCA, BMP, 07-08 #### [facility] ([id number]) [address] [place] [address] [phone] Lymphocytes/100 WBC (Bld) 8.9 % Normal [facility] Comment on above: Performed By: #### PINR, CBCA, BMP, 07-08 #### [facility] ([id number]) [address] [place] [address] 44848 MCH (RBC) [Entitic mass] 30.1 pg Normal 27-34 [facility] Comment on above: Performed By: #### PINR, CBCA, BMP, 07-08 #### [facility] ([id number]) [address] [place] [address] 11052 MCHC (RBC) [Mass/Vol] 33.6 g/dL Normal 32-36 [facility] Comment on above: Performed By: #### PINR, CBCA, BMP, 07-08 #### [facility] ([id number]) [address] [place] [address] 91316 MCV (RBC) [Entitic vol] 90 fL Normal 80-100 [facility] Comment on above: Performed By: #### PINR, CBCA, BMP, 07-08 #### [facility] ([id number]) [address] [place] [address] 59431 Monocytes (Bld) [#/Vol] 0.5 10*3/uL Normal 0-0.9 [facility] Comment on above: Performed By: #### PINR, CBCA, BMP, 07-08 #### [facility] ([id number]) [address] [place] [address] 96805 Monocytes/100 WBC (Bld) 7.1 % Normal [facility] Comment on above: Performed By: #### PINR, CBCA, BMP, 07-08 #### [facility] ([id number]) [address] [place] [address] 29648 Neutrophils/100 WBC (Bld) 82.3 % Normal [facility] Comment on above: Performed By: #### PINR, CBCA, BMP, 07-08 #### [facility] ([id number]) [address] [place] [address] 07859 Platelet mean volume (Bld) [Entitic vol] 7.8 fL Normal 7-12 [facility] Comment on above: Performed By: #### PINR, CBCA, BMP, 07-08 #### [facility] ([id number]) [address] [place] [address] 11467 Platelets (Bld) [#/Vol] 411 10*3/uL Normal 150-450 [facility] Comment on above: Performed By: #### PINR, CBCA, BMP, 07-08 #### [facility] ([id number]) [address] [place] [address] 25231 RBC COUNT 3.37 X10E12/L Low 3.80-5.20 [facility] Comment on above: Performed By: #### PINR, CBCA, BMP, 07-08 #### [facility] ([id number]) [address] [place] [address] 91577 WBC (Bld) [#/Vol] 7.2 10*3/uL Normal 4.0-11.0 [facility] Comment on above: Performed By: #### PINR, CBCA, BMP, 3093 4-4 #### [facility] ([id number]) [address] [place] [address] 64826 COMPREHENSIVE METABOLIC PANE Manolo 09-15-2023 Albumin [Mass/Vol] 2.4 g/dL Low 3.2-5.3 [facility] Comment on above: Performed By: #### PINR, CBCA, BMP, 3093 4-4 #### [facility] ([id number]) [address] [place] [address] 09972 ALP [Catalytic activity/Vol] 95 U/L Normal 39-130 [facility] Comment on above: Performed By: #### PINR, CBCA, BMP, 3093 4-4 #### [facility] ([id number]) [address] [place] [address] 55721 ALT [Catalytic activity/Vol] 16 U/L Normal 0-31 [facility] Comment on above: Performed By: #### PINR, CBCA, BMP, 3093 4-4 #### [facility] ([id number]) [address] [place] [address] 67092 Anion gap [Moles/Vol] 4 mmol/L Low 5-15 [facility] Comment on above: Performed By: #### PINR, CBCA, BMP, 3093 4-4 #### [facility] ([id number]) [address] [place] [address] 30338 AST [Catalytic activity/Vol] 25 U/L Normal 0-41 [facility] Comment on above: Performed By: #### PINR, CBCA, BMP, 3093 4-4 #### [facility] ([id number]) [address] [place] [address] 49430 Bilirubin [Mass/Vol] 1.0 mg/dL Normal 0.3-1.2 [facility] Comment on above: Performed By: #### PINR, CBCA, BMP, 3093 4-4 #### [facility] ([id number]) [address] [place] [address] 47303 Calcium [Mass/Vol] 8.1 mg/dL Low 8.5-10.5 [facility] Comment on above: Performed By: #### PINR, CBCA, BMP, 3093 4-4 #### [facility] ([id number]) [address] [place] [address] 77698 Chloride [Moles/Vol] 103 mmol/L Normal 98-109 [facility] Comment on above: Performed By: #### PINR, CBCA, BMP, 3093 4-4 #### [facility] ([id number]) [address] [place] [address] 10985 CO2 [Moles/Vol] 26 mmol/L Normal 22-32 [facility] Comment on above: Performed By: #### PINR, CBCA, BMP, 3093 4-4 #### [facility] ([id number]) [address] [place] [address] 31163 Creatinine [Mass/Vol] 0.93 mg/dL Normal 0.40-1.00 [facility] Comment on above: Result Comment: METHOD TRACEABLE TO IDMS STANDARD Performed By: #### P INR, CBCA, BMP, 79134-4 #### [facility] ([id number]) [address] [place] [address] 08614 GFR/1.73 sq M.predicted among non-blacks MDRD (S/P/Bld) [Vol rate/Area] 63 mL/min/{1.73_m2} Normal >59 [facility] Comment on above: Result Comment: Reported eGFR is based on the CKD-EPI 2020 equation that does not use a race coefficient. Performed By: #### P INR, CBCA, BMP, 19641-9 #### [facility] ([id number]) [address] [place] [address] 01249 Glucose [Mass/Vol] 133 mg/dL High 65-99 [facility] Comment on above: Performed By: #### PINR, CBCA, BMP, 3093 4-4 #### [facility] ([id number]) [address] [place] [address] 97301 Potassium [Moles/Vol] 2.7 mmol/L Critically low 3.5-5.0 [facility] Comment on above: Performed By: #### PINR, CBCA, BMP, 3093 4-4 #### [facility] ([id number]) [address] [place] [address] 95439 Protein [Mass/Vol] 5.3 g/dL Low 6.0-8.0 [facility] Comment on above: Performed By: #### PINR, CBCA, BMP, 3093 4-4 #### [facility] ([id number]) [address] [place] [address] 40259 Sodium [Moles/Vol] 133 mmol/L Low 134-146 [facility] Comment on above: Performed By: #### PINR, CBCA, BMP, 3093 4-4 #### [facility] ([id number]) [address] [place] [address] 12551 Urea nitrogen [Mass/Vol] 25 mg/dL Normal 5-27 [facility] Comment on above: Performed By: #### PINR, CBCA, BMP, 3093 4-4 #### [facility] ([id number]) [address] [place] [address] 71212 Natriuretic peptide B [Mass/ Vol]on 09-15-2023 Natriuretic peptide B (Bld) [Mass/Vol] 1760 pg/mL High <100.0 [facility] Comment on above: Performed By: #### PINR, CBCA, BMP, 3093 4-4 #### [facility] ([id number]) [address] [place] [address] 54616 Prealbumin [place] [Mass/Vol]on 0 09-15-2023 Prealbumin [Mass/Vol] 13 mg/dL Low 18-45 [facility] Comment on above: Performed By: #### PINR, CBCA, BMP, 3093 4-4 #### [facility] ([id number]) [address] [place] [address] 44425 THYROID PROFILEon 09-15-2023 Free T4 [Mass/Vol] 1.30 ng/dL Normal 0.61-1.60 [facility] Comment on above: Performed By: #### PINR, CBCA, BMP, 3 4- #### [facility] ([id number]) [address] [place] [address] 58054 TSH 4.53 uIU/mL Normal 0.49-4.67 [facility] Comment on above: Performed By: #### PINR, CBCA, BMP, 3093 4-4 #### [facility] ([id number]) [address] [place] [address] 26472 PROTIME AND INRon 09-04-2023 INR Coag (PPP) [Relative time] 5.3 {INR} Critically high 0.8-1.1 [facility] Comment on above: Performed By: #### PINR, CBCA, BMP, 3093 4-4 #### [facility] ([id number]) [address] [place] [address] 89436 PT Coag (PPP) [Time] 58.0 s High 9.8-13.2 [facility] Comment on above: Result Comment: NEW REFERENCE RANGE Performed By: #### P INR, CBCA, BMP, 31578-2 #### [facility] ([id number]) [address] [place] [address] 70067 PROTIME AND INRon 08-19-2023 INR Coag (PPP) [Relative time] 2.6 {INR} High 0.8-1.1 [facility] Comment on above: Performed By: #### PINR, CBCA, BMP, 3093 4-4 #### [facility] ([id number]) [address] [place] [address] 78212 PT Coag (PPP) [Time] 28.9 s High 9.8-13.2 [facility] Comment on above: Result Comment: NEW REFERENCE RANGE Performed By: #### P INR, CBCA, BMP, 14653-1 #### [facility] ([id number]) [address] [place] [address] 05571 COMPREHENSIVE METABOLIC PANE Manolo 08-14-2023 Albumin [Mass/Vol] 2.6 g/dL Low 3.2-5.3 [facility] Comment on above: Performed By: #### PINR, CBCA, BMP, 3093 4-4 #### [facility] ([id number]) [address] [place] [address] 29415 ALP [Catalytic activity/Vol] 97 U/L Normal 39-130 [facility] Comment on above: Performed By: #### PINR, CBCA, BMP, 3093 4-4 #### [facility] ([id number]) [address] [place] [address] 87373 ALT [Catalytic activity/Vol] 17 U/L Normal 0-31 [facility] Comment on above: Performed By: #### PINR, CBCA, BMP, 3093 4-4 #### [facility] ([id number]) [address] [place] [address] 59103 Anion gap [Moles/Vol] 9 mmol/L Normal 5-15 [facility] Comment on above: Performed By: #### PINR, CBCA, BMP, 3093 4-4 #### [facility] ([id number]) [address] [place] [address] 17107 AST [Catalytic activity/Vol] 24 U/L Normal 0-41 [facility] Comment on above: Performed By: #### PINR, CBCA, BMP, 3093 4-4 #### [facility] ([id number]) [address] [place] [address] 90122 Bilirubin [Mass/Vol] 0.4 mg/dL Normal 0.3-1.2 [facility] Comment on above: Performed By: #### PINR, CBCA, BMP, 3093 4-4 #### [facility] ([id number]) [address] [place] [address] 42332 Calcium [Mass/Vol] 9.4 mg/dL Normal 8.5-10.5 [facility] Comment on above: Performed By: #### PINR, CBCA, BMP, 3093 4-4 #### [facility] ([id number]) [address] [place] [address] 25876 Chloride [Moles/Vol] 102 mmol/L Normal 98-109 [facility] Comment on above: Performed By: #### PINR, CBCA, BMP, 3093 4-4 #### [facility] ([id number]) [address] [place] [address] 16671 CO2 [Moles/Vol] 29 mmol/L Normal 22-32 [facility] Comment on above: Performed By: #### PINR, CBCA, BMP, 3093 4-4 #### [facility] ([id number]) [address] [place] [address] 99351 Creatinine [Mass/Vol] 0.82 mg/dL Normal 0.40-1.00 [facility] Comment on above: Result Comment: METHOD TRACEABLE TO IDMS STANDARD Performed By: #### P INR, CBCA, BMP, 84518-5 #### [facility] ([id number]) [address] [place] [address] 06143 GFR/1.73 sq M.predicted among non-blacks MDRD (S/P/Bld) [Vol rate/Area] 73 mL/min/{1.73_m2} Normal >59 [facility] Comment on above: Result Comment: Reported eGFR is based on the CKD-EPI 2020 equation that does not use a race coefficient. Performed By: #### P INR, CBCA, BMP, 35115-3 #### [facility] ([id number]) [address] [place] [address] 30983 Glucose [Mass/Vol] 84 mg/dL Normal 65-99 [facility] Comment on above: Performed By: #### PINR, CBCA, BMP, 3093 4-4 #### [facility] ([id number]) [address] [place] [address] 74730 Potassium [Moles/Vol] 4.3 mmol/L Normal 3.5-5.0 [facility] Comment on above: Performed By: #### PINR, CBCA, BMP, 3093 4-4 #### [facility] ([id number]) [address] [place] [address] 61376 Protein [Mass/Vol] 5.4 g/dL Low 6.0-8.0 [facility] Comment on above: Performed By: #### PINR, CBCA, BMP, 3093 4-4 #### [facility] ([id number]) [address] [place] [address] 17057 Sodium [Moles/Vol] 140 mmol/L Normal 134-146 [facility] Comment on above: Performed By: #### PINR, CBCA, BMP, 3093 4-4 #### [facility] ([id number]) [address] [place] [address] 51798 Urea nitrogen [Mass/Vol] 25 mg/dL Normal 5-27 [facility] Comment on above: Performed By: #### PINR, CBCA, BMP, 3093 4-4 #### [facility] ([id number]) [address] [place] [address] 11558 BASIC METABOLIC PANLon 06-29 Anion gap [Moles/Vol] 8 mmol/L Normal 5-15 [facility] Comment on above: Performed By: #### PINR, CBCA, BMP, 3093 4-4 #### [facility] ([id number]) [address] [place] [address] 85859 Calcium [Mass/Vol] 9.2 mg/dL Normal 8.5-10.5 [facility] Comment on above: Performed By: #### PINR, CBCA, BMP, 3093 4-4 #### [facility] ([id number]) [address] [place] [address] 32888 Chloride [Moles/Vol] 105 mmol/L Normal 98-109 [facility] Comment on above: Performed By: #### PINR, CBCA, BMP, 3093 4-4 #### [facility] ([id number]) [address] [place] [address] 38610 CO2 [Moles/Vol] 29 mmol/L Normal 22-32 [facility] Comment on above: Performed By: #### PINR, CBCA, BMP, 3093 4-4 #### [facility] ([id number]) [address] [place] [address] 48651 Creatinine [Mass/Vol] 0.99 mg/dL Normal 0.40-1.00 [facility] Comment on above: Result Comment: METHOD TRACEABLE TO IDMS STANDARD Performed By: #### P INR, CBCA, BMP, 42771-2 #### [facility] ([id number]) [address] [place] [address] 10782 GFR/1.73 sq M.predicted among non-blacks MDRD (S/P/Bld) [Vol rate/Area] 58 mL/min/{1.73_m2} Low >59 [facility] Comment on above: Result Comment: Reported eGFR is based on the CKD-EPI 2020 equation that does not use a race coefficient. Performed By: #### P INR, CBCA, BMP, 85954-4 #### [facility] ([id number]) [address] [place] [address] 75191 Glucose [Mass/Vol] 197 mg/dL High 65-99 [facility] Comment on above: Performed By: #### PINR, CBCA, BMP, 3093 4-4 #### [facility] ([id number]) [address] [place] [address] 14905 Potassium [Moles/Vol] 4.3 mmol/L Normal 3.5-5.0 [facility] Comment on above: Performed By: #### PINR, CBCA, BMP, 3093 4-4 #### [facility] ([id number]) [address] [place] [address] 71392 Sodium [Moles/Vol] 142 mmol/L Normal 134-146 [facility] Comment on above: Performed By: #### PINR, CBCA, BMP, 3093 4-4 #### [facility] ([id number]) [address] [place] [address] 09930 Urea nitrogen [Mass/Vol] 26 mg/dL Normal 5-27 [facility] Comment on above: Performed By: #### PINR, CBCA, BMP, 3093 4-4 #### [facility] ([id number]) [address] [place] [address] 12117 FREE T3on 06-30-2023 Free T3 [Mass/Vol] 2.61 pg/mL Normal 2.50-3.90 [facility] Comment on above: Performed By: #### PINR, CBCA, BMP, 3093 4-4 #### [facility] ([id number]) [address] [place] [address] 85908 HGB A1C (GLYCO-HGB)on 2023 Glucose [Mass/Vol] 128 mg/dL Normal [facility] Comment on above: Performed By: #### PINR, CBCA, BMP, 3093 4-4 #### [facility] ([id number]) [address] [place] [address] 59859 HbA1c (Bld) [Mass fraction] 6.1 % High 4.4-5.6 [facility] Comment on above: Result Comment: NOTE ADA Guidelines Result HgbA1c Normal : less than 5.7 % Prediabetes : 5.7 % to 6.4 % Diabetes : > 6.4 % Use with caution in patients with abnormal hemoglobin variants as the half-life of red blood cells and in vivo glycation rates are affected. Performed By: #### P INR, CBCA, BMP, 31590-9 #### [facility] ([id number]) [address] [place] [address] 65636 Prealbumin [place] [Mass/Vol]on 0 06-30-2023 Prealbumin [Mass/Vol] 22 mg/dL Normal 18-45 [facility] Comment on above: Performed By: #### PINR, CBCA, BMP, 3093 4-4 #### [facility] ([id number]) [address] [place] [address] 44141 T3 [Mass/Vol]on 06-30-2023 TOTAL T3 (TT3) 54 ng/dL Low 87-178 [facility] Comment on above: Performed By: #### PINR, CBCA, BMP, 3093 4-4 #### [facility] ([id number]) [address] [place] [address] 43063 PROTIME AND INRon 06-19-2023 INR Coag (PPP) [Relative time] 1.2 {INR} High 0.8-1.1 [facility] Comment on above: Performed By: #### PINR, CBCA, BMP, 3093 4-4 #### [facility] ([id number]) [address] [place] [address] 31459 PT Coag (PPP) [Time] 14.2 s High 9.8-13.2 [facility] Comment on above: Result Comment: NEW REFERENCE RANGE Performed By: #### P INR, CBCA, BMP, 55601-5 #### [facility] ([id number]) [address] [place] [address] 95050 COMPREHENSIVE METABOLIC PANE Manolo 06-15-2023 Albumin [Mass/Vol] 2.3 g/dL Low 3.2-5.3 [facility] Comment on above: Performed By: #### PINR, CBCA, BMP, 3093 4-4 #### [facility] ([id number]) [address] [place] [address] 23111 ALP [Catalytic activity/Vol] 94 U/L Normal 39-130 [facility] Comment on above: Performed By: #### PINR, CBCA, BMP, 3093 4-4 #### [facility] ([id number]) [address] [place] [address] 79916 ALT [Catalytic activity/Vol] 15 U/L Normal 0-31 [facility] Comment on above: Performed By: #### PINR, CBCA, BMP, 3093 4-4 #### [facility] ([id number]) [address] [place] [address] 38866 Anion gap [Moles/Vol] 7 mmol/L Normal 5-15 [facility] Comment on above: Performed By: #### PINR, CBCA, BMP, 3093 4-4 #### [facility] ([id number]) [address] [place] [address] 21941 AST [Catalytic activity/Vol] 22 U/L Normal 0-41 [facility] Comment on above: Performed By: #### PINR, CBCA, BMP, 3093 4-4 #### [facility] ([id number]) [address] [place] [address] 86023 Bilirubin [Mass/Vol] 0.4 mg/dL Normal 0.3-1.2 [facility] Comment on above: Performed By: #### PINR, CBCA, BMP, 3093 4-4 #### [facility] ([id number]) [address] [place] [address] 78958 Calcium [Mass/Vol] 8.8 mg/dL Normal 8.5-10.5 [facility] Comment on above: Performed By: #### PINR, CBCA, BMP, 3093 4-4 #### [facility] ([id number]) [address] [place] [address] 55923 Chloride [Moles/Vol] 110 mmol/L High 98-109 [facility] Comment on above: Performed By: #### PINR, CBCA, BMP, 3093 4-4 #### [facility] ([id number]) [address] [place] [address] 01179 CO2 [Moles/Vol] 19 mmol/L Low 22-32 [facility] Comment on above: Performed By: #### PINR, CBCA, BMP, 3093 4-4 #### [facility] ([id number]) [address] [place] [address] 67193 Creatinine [Mass/Vol] 1.36 mg/dL High 0.40-1.00 [facility] Comment on above: Result Comment: METHOD TRACEABLE TO IDMS STANDARD Performed By: #### P INR, CBCA, BMP, 18676-9 #### [facility] ([id number]) [address] [place] [address] 92155 GFR/1.73 sq M.predicted among non-blacks MDRD (S/P/Bld) [Vol rate/Area] 40 mL/min/{1.73_m2} Low >59 [facility] Comment on above: Result Comment: Reported eGFR is based on the CKD-EPI 2020 equation that does not use a race coefficient. Performed By: #### P INR, CBCA, BMP, 64405-8 #### [facility] ([id number]) [address] [place] [address] 80069 Glucose [Mass/Vol] 137 mg/dL High 65-99 [facility] Comment on above: Performed By: #### PINR, CBCA, BMP, 3093 4-4 #### [facility] ([id number]) [address] [place] [address] 13211 Potassium [Moles/Vol] 4.6 mmol/L Normal 3.5-5.0 [facility] Comment on above: Performed By: #### PINR, CBCA, BMP, 3093 4-4 #### [facility] ([id number]) [address] [place] [address] 38296 Protein [Mass/Vol] 5.4 g/dL Low 6.0-8.0 [facility] Comment on above: Performed By: #### PINR, CBCA, BMP, 3093 4-4 #### [facility] ([id number]) [address] [place] [address] 20773 Sodium [Moles/Vol] 136 mmol/L Normal 134-146 [facility] Comment on above: Performed By: #### PINR, CBCA, BMP, 3093 4-4 #### [facility] ([id number]) [address] [place] [address] 06711 Urea nitrogen [Mass/Vol] 47 mg/dL High 5-27 [facility] Comment on above: Performed By: #### PINR, CBCA, BMP, 3093 4-4 #### [facility] ([id number]) [address] [place] [address] 11857 PROTIME AND INRon 06-15-2023 INR Coag (PPP) [Relative time] 1.2 {INR} High 0.8-1.1 [facility] Comment on above: Performed By: #### PINR, CBCA, BMP, 3093 4-4 #### [facility] ([id number]) [address] [place] [address] 80043 PT Coag (PPP) [Time] 14.3 s High 9.8-13.2 [facility] Comment on above: Result Comment: NEW REFERENCE RANGE Performed By: #### P INR, CBCA, BMP, 70833-9 #### [facility] ([id number]) [address] [place] [address] 36010 CBC AND AUTO DIFFon 06-05-19 ABSOLUTE BASOPHIL 0.1 X10E9/L Normal 0.0-0.2 [facility] Comment on above: Performed By: #### PINR, CBCA, BMP, 30906 07- #### [facility] ([id number]) [address] [place] [address] 57628 ABSOLUTE NEUTROPHIL 4.1 X10E9/L Normal 1.5-6.6 [facility] Comment on above: Performed By: #### PINR, CBCA, BMP, 309 4 #### [facility] ([id number]) [address] [place] [address] 56240 Basophils/100 WBC (Bld) 1.8 % Normal [facility] Comment on above: Performed By: #### PINR, CBCA, BMP, 309 4- #### [facility] ([id number]) [address] [place] [address] 14536 Eosinophils (Bld) [#/Vol] 0.1 10*3/uL Normal 0.0-0.4 [facility] Comment on above: Performed By: #### PINR, CBCA, BMP, 07-08 #### [facility] ([id number]) [address] [place] [address] 89485 Eosinophils/100 WBC (Bld) 1.7 % Normal [facility] Comment on above: Performed By: #### PINR, CBCA, BMP, 07-08 #### [facility] ([id number]) [address] [place] [address] 12732 Erythrocyte distribution width (RBC) [Ratio] 20.9 % High 11.5-15.0 [facility] Comment on above: Performed By: #### PINR, CBCA, BMP, 07-08 #### [facility] ([id number]) [address] [place] [address] 72632 Hematocrit (Bld) [Volume fraction] 27.1 % Low 35-47 [facility] Comment on above: Performed By: #### PINR, CBCA, BMP, 07-08 #### [facility] ([id number]) [address] [place] [address] 35135 Hemoglobin (Bld) [Mass/Vol] 8.9 g/dL Low 11.7-15.5 [facility] Comment on above: Performed By: #### PINR, CBCA, BMP, 07-08 #### [facility] ([id number]) [address] [place] [address] 42373 Lymphocytes (Bld) [#/Vol] 1.0 10*3/uL Normal 1.0-3.5 [facility] Comment on above: Performed By: #### PINR, CBCA, BMP, 07-08 #### [facility] ([id number]) [address] [place] [address] 45177 Lymphocytes/100 WBC (Bld) 18.1 % Normal [facility] Comment on above: Performed By: #### PINR, CBCA, BMP, 07-08 #### [facility] ([id number]) [address] [place] [address] 99245 MCH (RBC) [Entitic mass] 31.3 pg Normal 27-34 [facility] Comment on above: Performed By: #### PINR, CBCA, BMP, 07-08 #### [facility] ([id number]) [address] [place] [address] [place] [address] MCHC (RBC) [Mass/Vol] 32.9 g/dL Normal 32-36 [facility] Comment on above: Performed By: #### PINR, CBCA, BMP, 07-08 #### [facility] ([id number]) [address] [place] [address] 97367 MCV (RBC) [Entitic vol] 95 fL Normal 80-100 [facility] Comment on above: Performed By: #### PINR, CBCA, BMP, 07-08 #### [facility] ([id number]) [address] [place] [address] 78203 Monocytes (Bld) [#/Vol] 0.4 10*3/uL Normal 0-0.9 [facility] Comment on above: Performed By: #### PINR, CBCA, BMP, 07-08 #### [facility] ([id number]) [address] [place] [address] 10458 Monocytes/100 WBC (Bld) 7.4 % Normal [facility] Comment on above: Performed By: #### PINR, CBCA, BMP, 07-08 #### [facility] ([id number]) [address] [place] [address] 18328 Neutrophils/100 WBC (Bld) 71.0 % Normal [facility] Comment on above: Performed By: #### PINR, CBCA, BMP, 3093 4-4 #### [facility] ([id number]) [address] [place] [address] 37704 Platelet mean volume (Bld) [Entitic vol] 7.4 fL Normal 7-12 [facility] Comment on above: Performed By: #### PINR, CBCA, BMP, 3093 4-4 #### [facility] ([id number]) [address] [place] [address] 00376 Platelets (Bld) [#/Vol] 401 10*3/uL Normal 150-450 [facility] Comment on above: Performed By: #### PINR, CBCA, BMP, 3093 4-4 #### [facility] ([id number]) [address] [place] [address] 51168 RBC COUNT 2.86 X10E12/L Low 3.80-5.20 [facility] Comment on above: Performed By: #### PINR, CBCA, BMP, 3093 4-4 #### [facility] ([id number]) [address] [place] [address] 95254 WBC (Bld) [#/Vol] 5.7 10*3/uL Normal 4.0-11.0 [facility] Comment on above: Performed By: #### PINR, CBCA, BMP, 3093 4-4 #### [facility] ([id number]) [address] [place] [address] 31320 COMPREHENSIVE METABOLIC PANE Manolo 06-05-2023 Albumin [Mass/Vol] 2.4 g/dL Low 3.2-5.3 [facility] Comment on above: Performed By: #### PINR, CBCA, BMP, 3093 4-4 #### [facility] ([id number]) [address] [place] [address] 93753 ALP [Catalytic activity/Vol] 113 U/L Normal 39-130 [facility] Comment on above: Performed By: #### PINR, CBCA, BMP, 3093 4-4 #### [facility] ([id number]) [address] [place] [address] 23502 ALT [Catalytic activity/Vol] 17 U/L Normal 0-31 [facility] Comment on above: Performed By: #### PINR, CBCA, BMP, 3093 4-4 #### [facility] ([id number]) [address] [place] [address] 57337 Anion gap [Moles/Vol] 1 mmol/L Low 5-15 [facility] Comment on above: Performed By: #### PINR, CBCA, BMP, 3093 4-4 #### [facility] ([id number]) [address] [place] [address] 51462 AST [Catalytic activity/Vol] 21 U/L Normal 0-41 [facility] Comment on above: Performed By: #### PINR, CBCA, BMP, 3093 4-4 #### [facility] ([id number]) [address] [place] [address] 60200 Bilirubin [Mass/Vol] 0.4 mg/dL Normal 0.3-1.2 [facility] Comment on above: Performed By: #### PINR, CBCA, BMP, 3093 4- #### [facility] ([id number]) [address] [place] [address] 18801 Calcium [Mass/Vol] 8.8 mg/dL Normal 8.5-10.5 [facility] Comment on above: Performed By: #### PINR, CBCA, BMP, 3093 4-4 #### [facility] ([id number]) [address] [place] [address] 44146 Chloride [Moles/Vol] 108 mmol/L Normal 98-109 [facility] Comment on above: Performed By: #### PINR, CBCA, BMP, 3093 4-4 #### [facility] ([id number]) [address] [place] [address] 33347 CO2 [Moles/Vol] 23 mmol/L Normal 22-32 [facility] Comment on above: Performed By: #### PINR, CBCA, BMP, 3093 4-4 #### [facility] ([id number]) [address] [place] [address] 94413 Creatinine [Mass/Vol] 1.27 mg/dL High 0.40-1.00 [facility] Comment on above: Result Comment: METHOD TRACEABLE TO IDMS STANDARD Performed By: #### P INR, CBCA, BMP, 36274-7 #### [facility] ([id number]) [address] [place] [address] 84928 GFR/1.73 sq M.predicted among non-blacks MDRD (S/P/Bld) [Vol rate/Area] 43 mL/min/{1.73_m2} Low >59 [facility] Comment on above: Result Comment: Reported eGFR is based on the CKD-EPI 2020 equation that does not use a race coefficient. Performed By: #### P INR, CBCA, BMP, 45480-6 #### [facility] ([id number]) [address] [place] [address] 18881 Glucose [Mass/Vol] 111 mg/dL High 65-99 [facility] Comment on above: Performed By: #### PINR, CBCA, BMP, 3093 4-4 #### [facility] ([id number]) [address] [place] [address] 26033 Potassium [Moles/Vol] 5.0 mmol/L Normal 3.5-5.0 [facility] Comment on above: Performed By: #### PINR, CBCA, BMP, 3093 4-4 #### [facility] ([id number]) [address] [place] [address] 57826 Protein [Mass/Vol] 6.1 g/dL Normal 6.0-8.0 [facility] Comment on above: Performed By: #### PINR, CBCA, BMP, 3093 4-4 #### [facility] ([id number]) [address] [place] [address] 27211 Sodium [Moles/Vol] 132 mmol/L Low 134-146 [facility] Comment on above: Performed By: #### PINR, CBCA, BMP, 3093 4-4 #### [facility] ([id number]) [address] [place] [address] 44273 Urea nitrogen [Mass/Vol] 40 mg/dL High 5-27 [facility] Comment on above: Performed By: #### PINR, CBCA, BMP, 07-08 #### [facility] ([id number]) [address] [place] [address] 63366 PROTIME AND INRon 06-05-2023 INR Coag (PPP) [Relative time] 1.2 {INR} High 0.8-1.1 [facility] Comment on above: Performed By: #### PINR, CBCA, BMP, 3092 4- #### [facility] ([id number]) [address] [place] [address] 72891 PT Coag (PPP) [Time] 14.3 s High 9.8-13.2 [facility] Comment on above: Result Comment: NEW REFERENCE RANGE Performed By: #### P INR, CBCA, BMP, 93550-4 #### [facility] ([id number]) [address] [place] [address] 73572 CBC AND AUTO DIFFon 06-04-19 24 ABSOLUTE BASOPHIL 0.2 X10E9/L Normal 0.0-0.2 [facility] Comment on above: Performed By: #### PINR, CBCA, BMP, 3093 4-4 #### [facility] ([id number]) [address] [place] [address] 02651 ABSOLUTE NEUTROPHIL 4.7 X10E9/L Normal 1.5-6.6 [facility] Comment on above: Performed By: #### PINR, CBCA, BMP, 07-08 #### [facility] ([id number]) [address] [place] [address] 57180 Basophils/100 WBC (Bld) 2.3 % Normal [facility] Comment on above: Performed By: #### PINR, CBCA, BMP, 07-08 #### [facility] ([id number]) [address] [place] [address] 64231 Eosinophils (Bld) [#/Vol] 0.1 10*3/uL Normal 0.0-0.4 [facility] Comment on above: Performed By: #### PINR, CBCA, BMP, 07-08 #### [facility] ([id number]) [address] [place] [address] 07733 Eosinophils/100 WBC (Bld) 1.6 % Normal [facility] Comment on above: Performed By: #### PINR, CBCA, BMP, 07-08 #### [facility] ([id number]) [address] [place] [address] 75329 Erythrocyte distribution width (RBC) [Ratio] 21.5 % High 11.5-15.0 [facility] Comment on above: Performed By: #### PINR, CBCA, BMP, 07-08 #### [facility] ([id number]) [address] [place] [address] 31507 Hematocrit (Bld) [Volume fraction] 30.3 % Low 35-47 [facility] Comment on above: Performed By: #### PINR, CBCA, BMP, 07-08 #### [facility] ([id number]) [address] [place] [address] 93536 Hemoglobin (Bld) [Mass/Vol] 9.9 g/dL Low 11.7-15.5 [facility] Comment on above: Performed By: #### PINR, CBCA, BMP, 3092 4 #### [facility] ([id number]) [address] [place] [address] 44870 Lymphocytes (Bld) [#/Vol] 1.3 10*3/uL Normal 1.0-3.5 [facility] Comment on above: Performed By: #### PINR, CBCA, BMP, 07-08 #### [facility] ([id number]) [address] [place] [address] 12752 Lymphocytes/100 WBC (Bld) 19.2 % Normal [facility] Comment on above: Performed By: #### PINR, CBCA, BMP, 07-08 #### [facility] ([id number]) [address] [place] [address] 83289 MCH (RBC) [Entitic mass] 30.4 pg Normal 27-34 [facility] Comment on above: Performed By: #### PINR, CBCA, BMP, 07-08 #### [facility] ([id number]) [address] [place] [address] 22326 MCHC (RBC) [Mass/Vol] 32.6 g/dL Normal 32-36 [facility] Comment on above: Performed By: #### PINR, CBCA, BMP, 07-08 #### [facility] ([id number]) [address] [place] [address] 76861 MCV (RBC) [Entitic vol] 93 fL Normal 80-100 [facility] Comment on above: Performed By: #### PINR, CBCA, BMP, 30907-08 #### [facility] ([id number]) [address] [place] [address] 82293 Monocytes (Bld) [#/Vol] 0.5 10*3/uL Normal 0-0.9 [facility] Comment on above: Performed By: #### PINR, CBCA, BMP, 3093 4-4 #### [facility] ([id number]) [address] [place] [address] 99133 Monocytes/100 WBC (Bld) 7.5 % Normal [facility] Comment on above: Performed By: #### PINR, CBCA, BMP, 3093 4-4 #### [facility] ([id number]) [address] [place] [address] 23457 Neutrophils/100 WBC (Bld) 69.4 % Normal [facility] Comment on above: Performed By: #### PINR, CBCA, BMP, 3093 4-4 #### [facility] ([id number]) [address] [place] [address] 37797 Platelet mean volume (Bld) [Entitic vol] 7.2 fL Normal 7-12 [facility] Comment on above: Performed By: #### PINR, CBCA, BMP, 3093 4-4 #### [facility] ([id number]) [address] [place] [address] 05437 Platelets (Bld) [#/Vol] 419 10*3/uL Normal 150-450 [facility] Comment on above: Performed By: #### PINR, CBCA, BMP, 3093 4-4 #### [facility] ([id number]) [address] [place] [address] 89928 RBC COUNT 3.25 X10E12/L Low 3.80-5.20 [facility] Comment on above: Performed By: #### PINR, CBCA, BMP, 3093 4-4 #### [facility] ([id number]) [address] [place] [address] 91650 WBC (Bld) [#/Vol] 6.8 10*3/uL Normal 4.0-11.0 [facility] Comment on above: Performed By: #### PINR, CBCA, BMP, 3093 4-4 #### [facility] ([id number]) [address] [place] [address] 61694 COMPREHENSIVE METABOLIC PANE Manolo 06-04-2023 Albumin [Mass/Vol] 2.6 g/dL Low 3.2-5.3 [facility] Comment on above: Performed By: #### PINR, CBCA, BMP, 3093 4-4 #### [facility] ([id number]) [address] [place] [address] 29093 ALP [Catalytic activity/Vol] 123 U/L Normal 39-130 [facility] Comment on above: Performed By: #### PINR, CBCA, BMP, 3093 4-4 #### [facility] ([id number]) [address] [place] [address] 40362 ALT [Catalytic activity/Vol] 20 U/L Normal 0-31 [facility] Comment on above: Performed By: #### PINR, CBCA, BMP, 3093 4-4 #### [facility] ([id number]) [address] [place] [address] 99363 Anion gap [Moles/Vol] 4 mmol/L Low 5-15 [facility] Comment on above: Performed By: #### PINR, CBCA, BMP, 3093 4-4 #### [facility] ([id number]) [address] [place] [address] 12134 AST [Catalytic activity/Vol] 26 U/L Normal 0-41 [facility] Comment on above: Performed By: #### PINR, CBCA, BMP, 3093 4-4 #### [facility] ([id number]) [address] [place] [address] 06026 Bilirubin [Mass/Vol] 0.5 mg/dL Normal 0.3-1.2 [facility] Comment on above: Performed By: #### PINR, CBCA, BMP, 3093 4-4 #### [facility] ([id number]) [address] [place] [address] 61144 Calcium [Mass/Vol] 9.4 mg/dL Normal 8.5-10.5 [facility] Comment on above: Performed By: #### PINR, CBCA, BMP, 3093 4-4 #### [facility] ([id number]) [address] [place] [address] 13457 Chloride [Moles/Vol] 108 mmol/L Normal 98-109 [facility] Comment on above: Performed By: #### PINR, CBCA, BMP, 3093 4-4 #### [facility] ([id number]) [address] [place] [address] 20285 CO2 [Moles/Vol] 23 mmol/L Normal 22-32 [facility] Comment on above: Performed By: #### PINR, CBCA, BMP, 3093 4-4 #### [facility] ([id number]) [address] [place] [address] 51573 Creatinine [Mass/Vol] 1.12 mg/dL High 0.40-1.00 [facility] Comment on above: Result Comment: METHOD TRACEABLE TO IDMS STANDARD Performed By: #### P INR, CBCA, BMP, 17135-6 #### [facility] ([id number]) [address] [place] [address] 07584 GFR/1.73 sq M.predicted among non-blacks MDRD (S/P/Bld) [Vol rate/Area] 50 mL/min/{1.73_m2} Low >59 [facility] Comment on above: Result Comment: Reported eGFR is based on the CKD-EPI 2020 equation that does not use a race coefficient. Performed By: #### P INR, CBCA, BMP, 68256-7 #### [facility] ([id number]) [address] [place] [address] 00443 Glucose [Mass/Vol] 88 mg/dL Normal 65-99 [facility] Comment on above: Performed By: #### PINR, CBCA, BMP, 3093 4-4 #### [facility] ([id number]) [address] [place] [address] 82498 Potassium [Moles/Vol] 4.7 mmol/L Normal 3.5-5.0 [facility] Comment on above: Performed By: #### PINR, CBCA, BMP, 3093 4-4 #### [facility] ([id number]) [address] [place] [address] 96762 Protein [Mass/Vol] 6.5 g/dL Normal 6.0-8.0 [facility] Comment on above: Performed By: #### PINR, CBCA, BMP, 3093 4-4 #### [facility] ([id number]) [address] [place] [address] 10946 Sodium [Moles/Vol] 135 mmol/L Normal 134-146 [facility] Comment on above: Performed By: #### PINR, CBCA, BMP, 3093 4-4 #### [facility] ([id number]) [address] [place] [address] 03528 Urea nitrogen [Mass/Vol] 40 mg/dL High 5-27 [facility] Comment on above: Performed By: #### PINR, CBCA, BMP, 3093 4-4 #### [facility] ([id number]) [address] [place] [address] 88681 PROTIME AND INRon 06-04-2023 INR Coag (PPP) [Relative time] 1.2 {INR} High 0.8-1.1 [facility] Comment on above: Performed By: #### PINR, CBCA, BMP, 3093 4-4 #### [facility] ([id number]) [address] [place] [address] 97189 PT Coag (PPP) [Time] 13.6 s High 9.8-13.2 [facility] Comment on above: Result Comment: NEW REFERENCE RANGE Performed By: #### P INR, CBCA, BMP, 73859-2 #### [facility] ([id number]) [address] [place] [address] 65807 UA (MICROSCOPIC)on 4 R.B.CELLS >100 High 0-5 [facility] Comment on above: Performed By: #### PINR, CBCA, BMP, 3093 4- #### [facility] ([id number]) [address] [place] [address] 30813 Urinalysis dipstick W Reflex Microscopic panel (U) Results maybe affected due to High RBC count, interpretwith caution. Normal [facility] Comment on above: Performed By: #### PINR, CBCA, BMP, 3093 4-4 #### [facility] ([id number]) [address] [place] [address] 04903 W.B.CELLS PRESENT Normal 0-5 [facility] Comment on above: Performed By: #### PINR, CBCA, BMP, 3093 4-4 #### [facility] ([id number]) [address] [place] [address] 81462 URINE CULTUREon 06-04-2023 Bacteria identified Cx Nom (U) CULTURE RESULTS <10,000 ORGANISMS/ML NORMAL URO GENITAL KIERA Normal [facility] Comment on above: Performed By: #### PINR, CBCA, BMP, 3093 4-4 #### [facility] ([id number]) [address] [place] [address] 45775 Folate [Mass/Vol]on 06-01-19 24 FOLIC ACID 23.5 ng/mL Normal >5.8 [facility] Comment on above: Result Comment: NEW REFERENCE RANGE Performed By: #### P INR, CBCA, BMP, 39040-1 #### [facility] ([id number]) [address] [place] [address] 12254 PROTIME AND INRon 06-01-2023 INR Coag (PPP) [Relative time] 1.4 {INR} High 0.8-1.1 [facility] Comment on above: Performed By: #### PINR, CBCA, BMP, 3093 4-4 #### [facility] ([id number]) [address] [place] [address] 15667 PT Coag (PPP) [Time] 15.8 s High 9.8-13.2 [facility] Comment on above: Result Comment: NEW REFERENCE RANGE Performed By: #### P INR, CBCA, BMP, 33081-3 #### [facility] ([id number]) [address] [place] [address] 49476 VITAMIN B12on 06-01-2023 Cobalamin (Vitamin B12) [Mass/Vol] 1140 pg/mL High 180-914 [facility] Comment on above: Performed By: #### PINR, CBCA, BMP, 3093 4-4 #### [facility] ([id number]) [address] [place] [address] [place] [address] PROTIME AND INRon 05-28-2023 INR Coag (PPP) [Relative time] 1.4 {INR} High 0.8-1.1 [facility] Comment on above: Performed By: #### PINR, CBCA, BMP, 3093 4-4 #### [facility] ([id number]) [address] [place] [address] 59314 PT Coag (PPP) [Time] 15.6 s High 9.8-13.2 [facility] Comment on above: Result Comment: NEW REFERENCE RANGE Performed By: #### P INR, CBCA, BMP, 38300-9 #### [facility] ([id number]) [address] [place] [address] 09235 BASIC METABOLIC PANLon 05-25 Anion gap [Moles/Vol] 9 mmol/L Normal 5-15 [facility] Comment on above: Performed By: #### PINR, CBCA, BMP, 3093 4-4 #### [facility] ([id number]) [address] [place] [address] 04579 Calcium [Mass/Vol] 9.0 mg/dL Normal 8.5-10.5 [facility] Comment on above: Performed By: #### PINR, CBCA, BMP, 3093 4-4 #### [facility] ([id number]) [address] [place] [address] 85730 Chloride [Moles/Vol] 105 mmol/L Normal 98-109 [facility] Comment on above: Performed By: #### PINR, CBCA, BMP, 3093 4-4 #### [facility] ([id number]) [address] [place] [address] 50023 CO2 [Moles/Vol] 17 mmol/L Low 22-32 [facility] Comment on above: Performed By: #### PINR, CBCA, BMP, 3093 4-4 #### [facility] ([id number]) [address] [place] [address] 76681 Creatinine [Mass/Vol] 1.82 mg/dL High 0.40-1.00 [facility] Comment on above: Result Comment: METHOD TRACEABLE TO IDMS STANDARD Performed By: #### P INR, CBCA, BMP, 80351-7 #### [facility] ([id number]) [address] [place] [address] 23082 GFR/1.73 sq M.predicted among non-blacks MDRD (S/P/Bld) [Vol rate/Area] 28 mL/min/{1.73_m2} Low >59 [facility] Comment on above: Result Comment: Reported eGFR is based on the CKD-EPI 2020 equation that does not use a race coefficient. Performed By: #### P INR, CBCA, BMP, 86853-0 #### [facility] ([id number]) [address] [place] [address] 57653 Glucose [Mass/Vol] 270 mg/dL High 65-99 [facility] Comment on above: Performed By: #### PINR, CBCA, BMP, 3093 4-4 #### [facility] ([id number]) [address] [place] [address] 69755 Potassium [Moles/Vol] 5.4 mmol/L High 3.5-5.0 [facility] Comment on above: Performed By: #### PINR, CBCA, BMP, 3093 4-4 #### [facility] ([id number]) [address] [place] [address] 62812 Sodium [Moles/Vol] 131 mmol/L Low 134-146 [facility] Comment on above: Performed By: #### PINR, CBCA, BMP, 3093 4-4 #### [facility] ([id number]) [address] [place] [address] 63864 Urea nitrogen [Mass/Vol] 67 mg/dL High 5-27 [facility] Comment on above: Performed By: #### PINR, CBCA, BMP, 3093 4-4 #### [facility] ([id number]) [address] [place] [address] 65714 BLOOD UREA NITROGENon 2023 Urea nitrogen [Mass/Vol] 69 mg/dL High 5-27 [facility] Comment on above: Performed By: #### PINR, CBCA, BMP, 07-08 #### [facility] ([id number]) [address] [place] [address] 31391 CBC AND AUTO DIFFon 05-25-19 24 ABSOLUTE BASOPHIL 0.1 X10E9/L Normal 0.0-0.2 [facility] Comment on above: Performed By: #### PINR, CBCA, BMP, 07-08 #### [facility] ([id number]) [address] [place] [address] 90802 ABSOLUTE NEUTROPHIL 8.3 X10E9/L High 1.5-6.6 [facility] Comment on above: Performed By: #### PINR, CBCA, BMP, 07-08 #### [facility] ([id number]) [address] [place] [address] 33043 Basophils/100 WBC (Bld) 0.7 % Normal [facility] Comment on above: Performed By: #### PINR, CBCA, BMP, 07-08 #### [facility] ([id number]) [address] [place] [address] 41810 Eosinophils (Bld) [#/Vol] 0.2 10*3/uL Normal 0.0-0.4 [facility] Comment on above: Performed By: #### PINR, CBCA, BMP, 07-08 #### [facility] ([id number]) [address] [place] [address] 84578 Eosinophils/100 WBC (Bld) 2.3 % Normal [facility] Comment on above: Performed By: #### PINR, CBCA, BMP, 07-08 #### [facility] ([id number]) [address] [place] [address] 52751 Erythrocyte distribution width (RBC) [Ratio] 20.6 % High 11.5-15.0 [facility] Comment on above: Performed By: #### PINR, CBCA, BMP, 07-08 #### [facility] ([id number]) [address] [place] [address] 54078 Hematocrit (Bld) [Volume fraction] 32.4 % Low 35-47 [facility] Comment on above: Performed By: #### PINR, CBCA, BMP, 07-08 #### [facility] ([id number]) [address] [place] [address] 62638 Hemoglobin (Bld) [Mass/Vol] 10.8 g/dL Low 11.7-15.5 [facility] Comment on above: Performed By: #### PINR, CBCA, BMP, 07-08 #### [facility] ([id number]) [address] [place] [address] 18181 Lymphocytes (Bld) [#/Vol] 0.8 10*3/uL Low 1.0-3.5 [facility] Comment on above: Performed By: #### PINR, CBCA, BMP, 07-08 #### [facility] ([id number]) [address] [place] [address] 72873 Lymphocytes/100 WBC (Bld) 7.9 % Normal [facility] Comment on above: Performed By: #### PINR, CBCA, BMP, 07-08 #### [facility] ([id number]) [address] [place] [address] 83319 MCH (RBC) [Entitic mass] 30.1 pg Normal 27-34 [facility] Comment on above: Performed By: #### PINR, CBCA, BMP, 07-08 #### [facility] ([id number]) [address] [place] [address] 07966 MCHC (RBC) [Mass/Vol] 33.2 g/dL Normal 32-36 [facility] Comment on above: Performed By: #### PINR, CBCA, BMP, 3093 4- #### [facility] ([id number]) [address] [place] [address] 80368 MCV (RBC) [Entitic vol] 90 fL Normal 80-100 [facility] Comment on above: Performed By: #### PINR, CBCA, BMP, 3093 4- #### [facility] ([id number]) [address] [place] [address] 07012 Monocytes (Bld) [#/Vol] 0.6 10*3/uL Normal 0-0.9 [facility] Comment on above: Performed By: #### PINR, CBCA, BMP, 3093 - #### [facility] ([id number]) [address] [place] [address] 73539 Monocytes/100 WBC (Bld) 5.8 % Normal [facility] Comment on above: Performed By: #### PINR, CBCA, BMP, 3093 - #### [facility] ([id number]) [address] [place] [address] 99758 Neutrophils/100 WBC (Bld) 83.3 % Normal [facility] Comment on above: Performed By: #### PINR, CBCA, BMP, 3093 - #### [facility] ([id number]) [address] [place] [address] 96437 Platelet mean volume (Bld) [Entitic vol] 7.7 fL Normal 7-12 [facility] Comment on above: Performed By: #### PINR, CBCA, BMP, 3093 4- #### [facility] ([id number]) [address] [place] [address] 25428 Platelets (Bld) [#/Vol] 500 10*3/uL High 150-450 [facility] Comment on above: Performed By: #### PINR, CBCA, BMP, 3093 4-4 #### [facility] ([id number]) [address] [place] [address] 74488 RBC COUNT 3.59 X10E12/L Low 3.80-5.20 [facility] Comment on above: Performed By: #### PINR, CBCA, BMP, 3093 4-4 #### [facility] ([id number]) [address] [place] [address] 87662 WBC (Bld) [#/Vol] 10.0 10*3/uL Normal 4.0-11.0 [facility] Comment on above: Performed By: #### PINR, CBCA, BMP, 3 4-4 #### [facility] ([id number]) [address] [place] [address] 66196 IRONon 05-25-2023 Iron [Mass/Vol] 53 ug/dL Normal 50-170 [facility] Comment on above: Performed By: #### PINR, CBCA, BMP, 3093 4-4 #### [facility] ([id number]) [address] [place] [address] 92459 PROTIME AND INRon 05-25-2023 INR Coag (PPP) [Relative time] 1.9 {INR} High 0.8-1.1 [facility] Comment on above: Performed By: #### PINR, CBCA, BMP, 3 4-4 #### [facility] ([id number]) [address] [place] [address] 43100 PT Coag (PPP) [Time] 21.1 s High 9.8-13.2 [facility] Comment on above: Result Comment: NEW REFERENCE RANGE Performed By: #### P INR, CBCA, BMP, 06874-6 #### [facility] ([id number]) [address] [place] [address] 42061 BASIC METABOLIC PANLon 05-20 Anion gap [Moles/Vol] 7 mmol/L Normal 5-15 [facility] Comment on above: Performed By: #### PINR, CBCA, BMP, 3093 4-4 #### [facility] ([id number]) [address] [place] [address] 80720 Calcium [Mass/Vol] 9.1 mg/dL Normal 8.5-10.5 [facility] Comment on above: Performed By: #### PINR, CBCA, BMP, 3093 4-4 #### [facility] ([id number]) [address] [place] [address] 68227 Chloride [Moles/Vol] 102 mmol/L Normal 98-109 [facility] Comment on above: Performed By: #### PINR, CBCA, BMP, 3093 4-4 #### [facility] ([id number]) [address] [place] [address] 49413 CO2 [Moles/Vol] 21 mmol/L Low 22-32 [facility] Comment on above: Performed By: #### PINR, CBCA, BMP, 3093 4-4 #### [facility] ([id number]) [address] [place] [address] 85067 Creatinine [Mass/Vol] 2.29 mg/dL High 0.40-1.00 [facility] Comment on above: Result Comment: METHOD TRACEABLE TO IDMS STANDARD Performed By: #### P INR, CBCA, BMP, 87357-7 #### [facility] ([id number]) [address] [place] [address] 95372 GFR/1.73 sq M.predicted among non-blacks MDRD (S/P/Bld) [Vol rate/Area] 21 mL/min/{1.73_m2} Low >59 [facility] Comment on above: Result Comment: Reported eGFR is based on the CKD-EPI 2020 equation that does not use a race coefficient. Performed By: #### P INR, CBCA, BMP, 04196-0 #### [facility] ([id number]) [address] [place] [address] 88537 Glucose [Mass/Vol] 169 mg/dL High 65-99 [facility] Comment on above: Performed By: #### PINR, CBCA, BMP, 3093 4-4 #### [facility] ([id number]) [address] [place] [address] 40825 Potassium [Moles/Vol] 3.8 mmol/L Normal 3.5-5.0 [facility] Comment on above: Performed By: #### PINR, CBCA, BMP, 3093 4-4 #### [facility] ([id number]) [address] [place] [address] 47439 Sodium [Moles/Vol] 130 mmol/L Low 134-146 [facility] Comment on above: Performed By: #### PINR, CBCA, BMP, 3093 4-4 #### [facility] ([id number]) [address] [place] [address] 63355 Urea nitrogen [Mass/Vol] 109 mg/dL High 5-27 [facility] Comment on above: Performed By: #### PINR, CBCA, BMP, 3093 4-4 #### [facility] ([id number]) [address] [place] [address] 12342 PROTIME AND INRon 05-20-2023 INR Coag (PPP) [Relative time] 3.3 {INR} High 0.8-1.1 [facility] Comment on above: Performed By: #### PINR, CBCA, BMP, 3093 4-4 #### [facility] ([id number]) [address] [place] [address] 38129 PT Coag (PPP) [Time] 36.3 s High 9.8-13.2 [facility] Comment on above: Result Comment: NEW REFERENCE RANGE Performed By: #### P INR, CBCA, BMP, 31303-9 #### [facility] ([id number]) [address] [place] [address] 26640 Prealbumin [place] [Mass/Vol]on 0 05-20-2023 Prealbumin [Mass/Vol] 15 mg/dL Low 18-45 [facility] Comment on above: Performed By: #### PINR, CBCA, BMP, 3093 4-4 #### [facility] ([id number]) [address] [place] [address] 08670 Albuminon 05-13-2023 Albumin [Mass/Vol] 2.6 g/dL Low 3.2 - 5.3 g/dL [facility] Comment on above: PERFORMED AT [facility] [address] [place] [address] Albumin [Mass/Vol]on 024 ALBUMIN REQUEST CREDITED Normal 3.2-5.3 [facility] Comment on above: Result Comment: ORDERED A CMP Corrected on 05/13 AT 1808: Previously reported as 2.6 Performed By: #### P INR #### [facility] ([id number]) [address] [place] [address] 69587 CBC AND AUTO DIFFon 05-13-19 24 ABSOLUTE BASOPHIL 0.1 X10E9/L Normal 0.0-0.2 [facility] Comment on above: Performed By: #### PINR #### [facility] ([id number]) [address] [place] [address] [place] [address] ABSOLUTE NEUTROPHIL 7.5 X10E9/L High 1.5-6.6 [facility] Comment on above: Performed By: #### PINR #### [facility] ([id number]) [address] [place] [address] 60271 Basophils/100 WBC (Bld) 0.7 % Normal [facility] Comment on above: Performed By: #### PINR #### [facility] ([id number]) [address] [place] [address] 37576 Eosinophils (Bld) [#/Vol] 0.2 10*3/uL Normal 0.0-0.4 [facility] Comment on above: Performed By: #### PINR #### [facility] ([id number]) [address] [place] [address] 14949 Eosinophils/100 WBC (Bld) 1.7 % Normal [facility] Comment on above: Performed By: #### PINR #### [facility] ([id number]) [address] [place] [address] 20194 Erythrocyte distribution width (RBC) [Ratio] 17.8 % High 11.5-15.0 [facility] Comment on above: Performed By: #### PINR #### [facility] ([id number]) [address] [place] [address] 48077 Hematocrit (Bld) [Volume fraction] 34.1 % Low 35-47 [facility] Comment on above: Performed By: #### PINR #### [facility] ([id number]) [address] [place] [address] 96742 Hemoglobin (Bld) [Mass/Vol] 11.0 g/dL Low 11.7-15.5 [facility] Comment on above: Performed By: #### PINR #### [facility] ([id number]) [address] [place] [address] 55154 Lymphocytes (Bld) [#/Vol] 0.7 10*3/uL Low 1.0-3.5 [facility] Comment on above: Performed By: #### PINR #### [facility] ([id number]) [address] [place] [address] 82494 Lymphocytes/100 WBC (Bld) 7.3 % Normal [facility] Comment on above: Performed By: #### PINR #### [facility] ([id number]) [address] [place] [address] 00528 MCH (RBC) [Entitic mass] 28.7 pg Normal 27-34 [facility] Comment on above: Performed By: #### PINR #### [facility] ([id number]) [address] [place] [address] 59153 MCHC (RBC) [Mass/Vol] 32.4 g/dL Normal 32-36 [facility] Comment on above: Performed By: #### PINR #### [facility] ([id number]) [address] [place] [address] 96882 MCV (RBC) [Entitic vol] 89 fL Normal 80-100 [facility] Comment on above: Performed By: #### PINR #### [facility] ([id number]) [address] [place] [address] 53078 Monocytes (Bld) [#/Vol] 0.7 10*3/uL Normal 0-0.9 [facility] Comment on above: Performed By: #### PINR #### [facility] ([id number]) [address] [place] [address] 45920 Monocytes/100 WBC (Bld) 7.3 % Normal [facility] Comment on above: Performed By: #### PINR #### [facility] ([id number]) [address] [place] [address] 81834 Neutrophils/100 WBC (Bld) 83.0 % Normal [facility] Comment on above: Performed By: #### PINR #### [facility] ([id number]) [address] [place] [address] [place] [address] Platelet mean volume (Bld) [Entitic vol] 8.4 fL Normal 7-12 [facility] Comment on above: Performed By: #### PINR #### [facility] ([id number]) [address] [place] [address] Platelets (Bld) [#/Vol] 424 10*3/uL Normal 150-450 [facility] Comment on above: Performed By: #### PINR #### [facility] ([id number]) [address] [place] [address] RBC COUNT 3.85 X10E12/L Normal 3.80-5.20 [facility] Comment on above: Performed By: #### PINR #### [facility] ([id number]) [address] [place] [address] 41135 WBC (Bld) [#/Vol] 9.0 10*3/uL Normal 4.0-11.0 [facility] Comment on above: Performed By: #### PINR #### [facility] ([id number]) [address] [place] [address] 29342 CBC W Auto Differential pane l (Bld)on 05-13-2023 ABSOLUTE BASOPHIL 0.1 [facility] Comment on above: PERFORMED AT [facility] [address] [place] [address] Basophils/100 WBC (Bld) 0.7 % [facility] [...] [Mass/Vol] 32.4 g/dL 32 - 36 g/dL [facility] MCV (RBC) [Entitic vol] 89 fL 80 - 100 fL [facility] Monocytes (Bld) [#/Vol] 0.7 10*3/uL [facility] Monocytes/100 WBC (Bld) 7.3 % [facility] Neutrophils (Bld) [#/Vol] 7.5 10*3/uL High [facility] Neutrophils/100 WBC (Bld) 83.0 % [facility] Platelet mean volume (Bld) [Entitic vol] 8.4 fL 7 - 12 fL [facility] Platelets (Bld) [#/Vol] 424 10*3/uL [facility] RBC (Bld) [#/Vol] 3.85 10*6/uL [facility] WBC corrected for nucl RBC Auto (Bld) [#/Vol] 9.0 [facility] COMPREHENSIVE METABOLIC PANE Manolo 05-13-2023 Albumin [Mass/Vol] 2.8 g/dL Low 3.2-5.3 [facility] Comment on above: Performed By: #### PINR, CBCA, BMP, 3093 4-4 #### [facility] ([id number]) [address] [place] [address] 67378 ALP [Catalytic activity/Vol] 153 U/L High 39-130 [facility] Comment on above: Performed By: #### PINR, CBCA, BMP, 3093 4-4 #### [facility] ([id number]) [address] [place] [address] 63153 ALT [Catalytic activity/Vol] 19 U/L Normal 0-31 [facility] Comment on above: Performed By: #### PINR, CBCA, BMP, 3093 4-4 #### [facility] ([id number]) [address] [place] [address] 11343 Anion gap [Moles/Vol] 11 mmol/L Normal 5-15 [facility] Comment on above: Performed By: #### PINR, CBCA, BMP, 3093 4-4 #### [facility] ([id number]) [address] [place] [address] 14376 AST [Catalytic activity/Vol] 25 U/L Normal 0-41 [facility] Comment on above: Performed By: #### PINR, CBCA, BMP, 3093 4-4 #### [facility] ([id number]) [address] [place] [address] 90539 Bilirubin [Mass/Vol] 0.3 mg/dL Normal 0.3-1.2 [facility] Comment on above: Performed By: #### PINR, CBCA, BMP, 3093 4-4 #### [facility] ([id number]) [address] [place] [address] 38174 Calcium [Mass/Vol] 9.0 mg/dL Normal 8.5-10.5 [facility] Comment on above: Performed By: #### PINR, CBCA, BMP, 3093 4-4 #### [facility] ([id number]) [address] [place] [address] 01725 Chloride [Moles/Vol] 103 mmol/L Normal 98-109 [facility] Comment on above: Performed By: #### PINR, CBCA, BMP, 3093 4-4 #### [facility] ([id number]) [address] [place] [address] 09465 CO2 [Moles/Vol] 23 mmol/L Normal 22-32 [facility] Comment on above: Performed By: #### PINR, CBCA, BMP, 3093 4-4 #### [facility] ([id number]) [address] [place] [address] 49743 Creatinine [Mass/Vol] 2.07 mg/dL High 0.40-1.00 [facility] Comment on above: Result Comment: METHOD TRACEABLE TO IDMS STANDARD Performed By: #### P INR, CBCA, BMP, 86869-5 #### [facility] ([id number]) [address] [place] [address] 05683 GFR/1.73 sq M.predicted among non-blacks MDRD (S/P/Bld) [Vol rate/Area] 24 mL/min/{1.73_m2} Low >59 [facility] Comment on above: Result Comment: Reported eGFR is based on the CKD-EPI 2020 equation that does not use a race coefficient. Performed By: #### P INR, CBCA, BMP, 28064-5 #### [facility] ([id number]) [address] [place] [address] 37505 Glucose [Mass/Vol] 204 mg/dL High 65-99 [facility] Comment on above: Performed By: #### PINR, CBCA, BMP, 3093 4-4 #### [facility] ([id number]) [address] [place] [address] 10943 Potassium [Moles/Vol] 4.5 mmol/L Normal 3.5-5.0 [facility] Comment on above: Performed By: #### PINR, CBCA, BMP, 3093 4-4 #### [facility] ([id number]) [address] [place] [address] 67924 Protein [Mass/Vol] 6.1 g/dL Normal 6.0-8.0 [facility] Comment on above: Performed By: #### PINR, CBCA, BMP, 3093 4-4 #### [facility] ([id number]) [address] [place] [address] 48377 Sodium [Moles/Vol] 137 mmol/L Normal 134-146 [facility] Comment on above: Performed By: #### PINR, CBCA, BMP, 3093 4-4 #### [facility] ([id number]) [address] [place] [address] 47133 Urea nitrogen [Mass/Vol] 91 mg/dL High 5-27 [facility] Comment on above: Performed By: #### PINR, CBCA, BMP, 3093 4-4 #### [facility] ([id number]) [address] [place] [address] 72545 No Panel Informationon 05-13 Interpretation and review of laboratory results Abnormal [facility] PROTIME AND INRon 05-13-2023 INR Coag (PPP) [Relative time] 2.2 {INR} High 0.8-1.1 [facility] Comment on above: Performed By: #### PINR #### [facility] ([id number]) [address] [place] [address] 02799 PT Coag (PPP) [Time] 25.3 s High 9.8-13.2 [facility] Comment on above: Result Comment: NEW REFERENCE RANGE Performed By: #### P INR #### [facility] ([id number]) [address] [place] [address] 38248 T3 [Mass/Vol]on 05-13-2023 TOTAL T3 (TT3) 22 ng/dL Low 87-178 [facility] Comment on above: Performed By: #### PINR, CBCA, BMP, 3093 4-4 #### [facility] ([id number]) [address] [place] [address] 87629 THYROID PROFILEon 05-13-2023 Free T4 [Mass/Vol] 1.14 ng/dL Normal 0.61-1.60 [facility] Comment on above: Performed By: #### PINR #### [facility] ([id number]) [address] [place] [address] 56743 TSH 5.80 uIU/mL High 0.49-4.67 [facility] Comment on above: Performed By: #### PINR #### [facility] ([id number]) [address] [place] [address] 37049 Urea nitrogen [Mass/Vol]on 0 05-13-2023 BLOOD UREA NITROGEN REQUEST CREDITED Normal 5-27 [facility] Comment on above: Result Comment: ORDERED A CMP Corrected on 05/13 AT 1808: Previously reported as 95 Performed By: #### P INR #### [facility] ([id number]) [address] [place] [address] 15676 CBC AND AUTO DIFFon 04-28-19 ABSOLUTE BASOPHIL 0.1 X10E9/L Normal 0.0-0.2 [facility] Comment on above: Performed By: #### PINR #### [facility] ([id number]) [address] [place] [address] 97687 ABSOLUTE NEUTROPHIL 2.8 X10E9/L Normal 1.5-6.6 [facility] Comment on above: Performed By: #### PINR #### [facility] ([id number]) [address] [place] [address] 09332 Basophils/100 WBC (Bld) 1.2 % Normal [facility] Comment on above: Performed By: #### PINR #### [facility] ([id number]) [address] [place] [address] 21660 Eosinophils (Bld) [#/Vol] 0.3 10*3/uL Normal 0.0-0.4 [facility] Comment on above: Performed By: #### PINR #### [facility] ([id number]) [address] [place] [address] 37658 Eosinophils/100 WBC (Bld) 5.4 % Normal [facility] Comment on above: Performed By: #### PINR #### [facility] ([id number]) [address] [place] [address] 86059 Erythrocyte distribution width (RBC) [Ratio] 17.2 % High 11.5-15.0 [facility] Comment on above: Performed By: #### PINR #### [facility] ([id number]) [address] [place] [address] 56091 Hematocrit (Bld) [Volume fraction] 30.3 % Low 35-47 [facility] Comment on above: Performed By: #### PINR #### [facility] ([id number]) [address] [place] [address] 86022 Hemoglobin (Bld) [Mass/Vol] 9.9 g/dL Low 11.7-15.5 [facility] Comment on above: Performed By: #### PINR #### [facility] ([id number]) [address] [place] [address] 19438 Lymphocytes (Bld) [#/Vol] 0.7 10*3/uL Low 1.0-3.5 [facility] Comment on above: Performed By: #### PINR #### [facility] ([id number]) [address] [place] [address] 36972 Lymphocytes/100 WBC (Bld) 14.1 % Normal [facility] Comment on above: Performed By: #### PINR #### [facility] ([id number]) [address] [place] [address] 94965 MCH (RBC) [Entitic mass] 29.0 pg Normal 27-34 [facility] Comment on above: Performed By: #### PINR #### [facility] ([id number]) [address] [place] [address] 21748 MCHC (RBC) [Mass/Vol] 32.6 g/dL Normal 32-36 [facility] Comment on above: Performed By: #### PINR #### [facility] ([id number]) [address] [place] [address] 12886 MCV (RBC) [Entitic vol] 89 fL Normal 80-100 [facility] Comment on above: Performed By: #### PINR #### [facility] ([id number]) [address] [place] [address] 24909 Monocytes (Bld) [#/Vol] 0.9 10*3/uL Normal 0-0.9 [facility] Comment on above: Performed By: #### PINR #### [facility] ([id number]) [address] [place] [address] 58711 Monocytes/100 WBC (Bld) 19.1 % Normal [facility] Comment on above: Performed By: #### PINR #### [facility] ([id number]) [address] [place] [address] 80257 Neutrophils/100 WBC (Bld) 60.2 % Normal [facility] Comment on above: Performed By: #### PINR #### [facility] ([id number]) [address] [place] [address] 34666 Platelet mean volume (Bld) [Entitic vol] 8.6 fL Normal 7-12 [facility] Comment on above: Performed By: #### PINR #### [facility] ([id number]) [address] [place] [address] 37832 Platelets (Bld) [#/Vol] 335 10*3/uL Normal 150-450 [facility] Comment on above: Performed By: #### PINR #### [facility] ([id number]) [address] [place] [address] 70356 RBC COUNT 3.40 X10E12/L Low 3.80-5.20 [facility] Comment on above: Performed By: #### PINR #### [facility] ([id number]) [address] [place] [address] 03663 WBC (Bld) [#/Vol] 4.7 10*3/uL Normal 4.0-11.0 [facility] Comment on above: Performed By: #### PINR #### [facility] ([id number]) [address] [place] [address] [place] [address] COMPREHENSIVE METABOLIC PANE Manolo 04-28-2023 Albumin [Mass/Vol] 2.3 g/dL Low 3.2-5.3 [facility] Comment on above: Performed By: #### PINR #### [facility] ([id number]) [address] [place] [address] [place] [address] ALP [Catalytic activity/Vol] 120 U/L Normal 39-130 [facility] Comment on above: Performed By: #### PINR #### [facility] ([id number]) [address] [place] [address] [id number] ALT [Catalytic activity/Vol] 13 U/L Normal 0-31 [facility] Comment on above: Performed By: #### PINR #### [facility] ([id number]) [address] [place] [address] [place] [address] Anion gap [Moles/Vol] 8 mmol/L Normal 5-15 [facility] Comment on above: Performed By: #### PINR #### [facility] ([id number]) [address] [place] [address] 03721 AST [Catalytic activity/Vol] 14 U/L Normal 0-41 [facility] Comment on above: Performed By: #### PINR #### [facility] ([id number]) [address] [place] [address] [place] [address] Bilirubin [Mass/Vol] 0.3 mg/dL Normal 0.3-1.2 [facility] Comment on above: Performed By: #### PINR #### [facility] ([id number]) [address] [place] [address] 44354 Calcium [Mass/Vol] 9.2 mg/dL Normal 8.5-10.5 [facility] Comment on above: Performed By: #### PINR #### [facility] ([id number]) [address] [place] [address] 79084 Chloride [Moles/Vol] 110 mmol/L High 98-109 [facility] Comment on above: Performed By: #### PINR #### [facility] ([id number]) [address] [place] [address] 33242 CO2 [Moles/Vol] 19 mmol/L Low 22-32 [facility] Comment on above: Performed By: #### PINR #### [facility] ([id number]) [address] [place] [address] 24286 Creatinine [Mass/Vol] 1.75 mg/dL High 0.40-1.00 [facility] Comment on above: Result Comment: METHOD TRACEABLE TO IDMS STANDARD Performed By: #### P INR #### [facility] ([id number]) [address] [place] [address] 83700 GFR/1.73 sq M.predicted among non-blacks MDRD (S/P/Bld) [Vol rate/Area] 29 mL/min/{1.73_m2} Low >59 [facility] Comment on above: Result Comment: Reported eGFR is based on the CKD-EPI 1 equation that does not use a race coefficient. Performed By: #### P INR #### [facility] ([id number]) [address] [place] [address] 94530 Glucose [Mass/Vol] 264 mg/dL High 65-99 [facility] Comment on above: Performed By: #### PINR #### [facility] ([id number]) [address] [place] [address] 92681 Potassium [Moles/Vol] 4.9 mmol/L Normal 3.5-5.0 [facility] Comment on above: Performed By: #### PINR #### [facility] ([id number]) [address] [place] [address] 92632 Protein [Mass/Vol] 5.7 g/dL Low 6.0-8.0 [facility] Comment on above: Performed By: #### PINR #### [facility] ([id number]) [address] [place] [address] 17501 Sodium [Moles/Vol] 137 mmol/L Normal 134-146 [facility] Comment on above: Performed By: #### PINR #### [facility] ([id number]) [address] [place] [address] 82278 Urea nitrogen [Mass/Vol] 55 mg/dL High 5-27 [facility] Comment on above: Performed By: #### PINR #### [facility] ([id number]) [address] [place] [address] 73869 Natriuretic peptide B [Mass/ Vol]on 04-28-2023 Natriuretic peptide B (Bld) [Mass/Vol] 879 pg/mL High <100.0 [facility] Comment on above: Performed By: #### PINR #### [facility] ([id number]) [address] [place] [address] 80539 PROTIME AND INRon 04-28-2023 INR Coag (PPP) [Relative time] 4.3 {INR} Critically high 0.8-1.1 [facility] Comment on above: Performed By: #### PINR #### [facility] ([id number]) [address] [place] [address] 38053 PT Coag (PPP) [Time] 47.9 s High 9.8-13.2 [facility] Comment on above: Result Comment: NEW REFERENCE RANGE Performed By: #### P INR #### [facility] ([id number]) [address] [place] [address] [place] [address] PROTIME AND INRon 04-27-2023 INR Coag (PPP) [Relative time] 4.7 {INR} Critically high 0.8-1.1 [facility] Comment on above: Performed By: #### PINR #### [facility] ([id number]) [address] [place] [address] 89891 PT Coag (PPP) [Time] 51.5 s High 9.8-13.2 [facility] Comment on above: Result Comment: NEW REFERENCE RANGE Performed By: #### P INR #### [facility] ([id number]) [address] [place] [address], [place] [address] PROTIME AND INRon 04-20-2023 INR Coag (PPP) [Relative time] 2.8 {INR} High 0.8-1.1 [facility] Comment on above: Performed By: #### PINR #### [facility] ([id number]) [address] [place] [address] [place] [address] PT Coag (PPP) [Time] 31.0 s High 9.8-13.2 [facility] Comment on above: Result Comment: NEW REFERENCE RANGE Performed By: #### P INR #### [facility] ([id number]) [address] [place] [address] 16119 PROTIME AND INRon 04-13-2023 INR Coag (PPP) [Relative time] 2.4 {INR} High 0.8-1.1 [facility] Comment on above: Performed By: #### PINR #### [facility] ([id number]) [address] [place] [address] [place] [address] PT Coag (PPP) [Time] 27.4 s High 9.8-13.2 [facility] Comment on above: Result Comment: NEW REFERENCE RANGE Performed By: #### P INR #### [facility] ([id number]) [address] [place] [address] [place] [address] PROTIME AND INRon 04-08-2023 INR Coag (PPP) [Relative time] 4.0 {INR} High 0.8-1.1 [facility] Comment on above: Performed By: #### PINR #### [facility] ([id number]) [address] [place] [address] 10330 PT Coag (PPP) [Time] 44.5 s High 9.8-13.2 [facility] Comment on above: Result Comment: NEW REFERENCE RANGE Performed By: #### P INR #### [facility] ([id number]) [address] [place] [address] 50359 PROTIME AND INRon 04-07-2023 INR Coag (PPP) [Relative time] 4.1 {INR} Critically high 0.8-1.1 [facility] Comment on above: Performed By: #### PINR #### [facility] ([id number]) [address] [place] [address] 27169 PT Coag (PPP) [Time] 45.4 s High 9.8-13.2 [facility] Comment on above: Result Comment: NEW REFERENCE RANGE Performed By: #### P INR #### [facility] ([id number]) [address] [place] [address] 88456 BASIC METABOLIC PANLon 03-31 Anion gap [Moles/Vol] 9 mmol/L Normal 5-15 [facility] Comment on above: Performed By: #### PINR, CBCA, BMP, 3093 4-4 #### [facility] ([id number]) [address] [place] [address] 67211 Calcium [Mass/Vol] 9.0 mg/dL Normal 8.5-10.5 [facility] Comment on above: Performed By: #### PINR, CBCA, BMP, 3093 4-4 #### [facility] ([id number]) [address] [place] [address] 74176 Chloride [Moles/Vol] 108 mmol/L Normal 98-109 [facility] Comment on above: Performed By: #### PINR, CBCA, BMP, 3093 4-4 #### [facility] ([id number]) [address] [place] [address] 89324 CO2 [Moles/Vol] 20 mmol/L Low 22-32 [facility] Comment on above: Performed By: #### PINR, CBCA, BMP, 3093 4-4 #### [facility] ([id number]) [address] [place] [address] 51881 Creatinine [Mass/Vol] 1.60 mg/dL High 0.40-1.00 [facility] Comment on above: Result Comment: METHOD TRACEABLE TO IDMS STANDARD Performed By: #### P INR, CBCA, BMP, 52301-3 #### [facility] ([id number]) [address] [place] [address] 67501 GFR/1.73 sq M.predicted among non-blacks MDRD (S/P/Bld) [Vol rate/Area] 33 mL/min/{1.73_m2} Low >59 [facility] Comment on above: Result Comment: Reported eGFR is based on the CKD-EPI 2020 equation that does not use a race coefficient. Performed By: #### P INR, CBCA, BMP, 52846-8 #### [facility] ([id number]) [address] [place] [address] 08866 Glucose [Mass/Vol] 185 mg/dL High 65-99 [facility] Comment on above: Performed By: #### PINR, CBCA, BMP, 3093 4-4 #### [facility] ([id number]) [address] [place] [address] 58499 Potassium [Moles/Vol] 4.3 mmol/L Normal 3.5-5.0 [facility] Comment on above: Performed By: #### PINR, CBCA, BMP, 07-08 #### [facility] ([id number]) [address] [place] [address] 55009 Sodium [Moles/Vol] 137 mmol/L Normal 134-146 [facility] Comment on above: Performed By: #### PINR, CBCA, BMP, 07-08 #### [facility] ([id number]) [address] [place] [address] 07947 Urea nitrogen [Mass/Vol] 45 mg/dL High 5-27 [facility] Comment on above: Performed By: #### PINR, CBCA, BMP, 07-08 #### [facility] ([id number]) [address] [place] [address] 41032 CBC AND AUTO DIFFon 03-31-20 23 Eosinophils (Bld) [#/Vol] 0.1 10*3/uL Normal 0.0-0.4 [facility] Comment on above: Performed By: #### PINR, CBCA, BMP, 07-08 #### [facility] ([id number]) [address] [place] [address] 58523 Eosinophils/100 WBC (Bld) 2.0 % Normal [facility] Comment on above: Performed By: #### PINR, CBCA, BMP, 07-08 #### [facility] ([id number]) [address] [place] [address] 46401 Erythrocyte distribution width (RBC) [Ratio] 16.3 % High 11.5-15.0 [facility] Comment on above: Performed By: #### PINR, CBCA, BMP, 07-08 #### [facility] ([id number]) [address] [place] [address] 81639 FRAGMENT 1+ Abnormal NONE [facility] Comment on above: Performed By: #### PINR, CBCA, BMP, 3093 4- #### [facility] ([id number]) [address] [place] [address] 25786 Hematocrit (Bld) [Volume fraction] 30.9 % Low 35-47 [facility] Comment on above: Performed By: #### PINR, CBCA, BMP, 3093 07-08 #### [facility] ([id number]) [address] [place] [address] 42412 Hemoglobin (Bld) [Mass/Vol] 10.1 g/dL Low 11.7-15.5 [facility] Comment on above: Performed By: #### PINR, CBCA, BMP, 07-08 #### [facility] ([id number]) [address] [place] [address] 04553 Lymphocytes (Bld) [#/Vol] 1.1 10*3/uL Normal 1.0-3.5 [facility] Comment on above: Performed By: #### PINR, CBCA, BMP, 3093 - #### [facility] ([id number]) [address] [place] [address] 37779 Lymphocytes/100 WBC (Bld) 17.0 % Normal [facility] Comment on above: Performed By: #### PINR, CBCA, BMP, 07-08 #### [facility] ([id number]) [address] [place] [address] 81759 MCH (RBC) [Entitic mass] 29.3 pg Normal 27-34 [facility] Comment on above: Performed By: #### PINR, CBCA, BMP, 30906 07- #### [facility] ([id number]) [address] [place] [address] 43431 MCHC (RBC) [Mass/Vol] 32.7 g/dL Normal 32-36 [facility] Comment on above: Performed By: #### PINR, CBCA, BMP, 3093 07-08 #### [facility] ([id number]) [address] [place] [address] 93401 MCV (RBC) [Entitic vol] 90 fL Normal 80-100 [facility] Comment on above: Performed By: #### PINR, CBCA, BMP, 3093 07-08 #### [facility] ([id number]) [address] [place] [address] 48674 Monocytes (Bld) [#/Vol] 0.9 10*3/uL Normal 0-0.9 [facility] Comment on above: Performed By: #### PINR, CBCA, BMP, 07-08 #### [facility] ([id number]) [address] [place] [address] 34749 Monocytes/100 WBC (Bld) 14.0 % Normal [facility] Comment on above: Performed By: #### PINR, CBCA, BMP, 07-08 #### [facility] ([id number]) [address] [place] [address] 49810 Neutrophils (Bld) [#/Vol] 4.4 10*3/uL Normal 1.5-6.6 [facility] Comment on above: Performed By: #### PINR, CBCA, BMP, 3 07-08 #### [facility] ([id number]) [address] [place] [address] 07900 Platelet mean volume (Bld) [Entitic vol] 8.8 fL Normal 7-12 [facility] Comment on above: Performed By: #### PINR, CBCA, BMP, 3093 07-08 #### [facility] ([id number]) [address] [place] [address] 54358 Platelets (Bld) [#/Vol] 302 10*3/uL Normal 150-450 [facility] Comment on above: Performed By: #### PINR, CBCA, BMP, 3093 07-08 #### [facility] ([id number]) [address] [place] [address] 96588 RBC COUNT 3.45 X10E12/L Low 3.80-5.20 [facility] Comment on above: Performed By: #### PINR, CBCA, BMP, 3093 - #### [facility] ([id number]) [address] [place] [address] 15272 SEG NEUTROPHIL 67.0 % Normal [facility] Comment on above: Performed By: #### PINR, CBCA, BMP, 3 07-08 #### [facility] ([id number]) [address] [place] [address] 20429 WBC (Bld) [#/Vol] 6.4 10*3/uL Normal 4.0-11.0 [facility] Comment on above: Performed By: #### PINR, CBCA, BMP, 30907-08 #### [facility] ([id number]) [address] [place] [address] 71085 Natriuretic peptide B [Mass/ Vol]on 03-31-2023 Natriuretic peptide B (Bld) [Mass/Vol] 1050 pg/mL High <100.0 [facility] Comment on above: Performed By: #### PINR, CBCA, BMP, 07-08 #### [facility] ([id number]) [address] [place] [address] 27707 PROTIME AND INRon 03-31-2023 INR Coag (PPP) [Relative time] 3.4 {INR} High 0.8-1.1 [facility] Comment on above: Performed By: #### PINR, CBCA, BMP, 3093 - #### [facility] ([id number]) [address] [place] [address] 82989 PT Coag (PPP) [Time] 37.8 s High 9.8-13.2 [facility] Comment on above: Result Comment: NEW REFERENCE RANGE Performed By: #### P INR, CBCA, BMP, 37343-1 #### [facility] ([id number]) [address] [place] [address] 00297 FREE T3on 03-23-2023 Free T3 [Mass/Vol] 2.25 pg/mL Low 2.50-3.90 [facility] Comment on above: Performed By: #### 3051-0 #### [facility] ([id number]) [address] [place] [address], [address] [place] [address] PROTIME AND INRon 03-23-2023 INR Coag (PPP) [Relative time] 2.6 {INR} High 0.8-1.1 [facility] Comment on above: Performed By: #### PINR #### [facility] ([id number]) [address] [place] [address] 65425 PT Coag (PPP) [Time] 29.2 s High 9.8-13.2 [facility] Comment on above: Result Comment: NEW REFERENCE RANGE Performed By: #### P INR #### [facility] ([id number]) [address] [place] [address] 57075 Glucose - FINGER STICKon Glucose [Mass/Vol] 153 mg/dL [employer] Other A1C HEMOGLOBINon 06-18-2022 HbA1c (Bld) [Mass fraction] 7.4 % [employer] Other Glucose - FINGER STICKon Glucose [Mass/Vol] 98 mg/dL [employer] Other HbA1c (Bld) [Mass fraction]o n 06-18-2022 A1C HEMOGLOBIN Its Time Compliance Other CBC panel Auto (Bld)on 10-16 Erythrocyte distribution width (RBC) [Ratio] 14.8 % Normal 11.5-15.0 [facility] Comment on above: Order Comment: Specimen Type: BLOOD SPEC IMEN Ordering Facility: [facility] Address: [address] [place], [place] [address] Performed By: #### 5 8410-2 #### [facility] CLIA [id number] [address] [place] [address] [place] Hematocrit (Bld) [Volume fraction] 38.5 % Normal 36.0-46.0 [facility] Comment on above: Order Comment: Specimen Type: BLOOD SPEC IMEN Ordering Facility: [facility] Address: [address] [place], [place] [address] Performed By: #### 5 8410-2 #### [facility] CLIA [id number] [address] [place] [address] [place] Hemoglobin (Bld) [Mass/Vol] 11.7 g/dL Normal 11.5-15.5 [facility] Comment on above: Order Comment: Specimen Type: BLOOD SPEC IMEN Ordering Facility: [facility] Address: [address] [place], [place] [address] Performed By: #### 5 8410-2 #### [facility] CLIA [id number] [address] [place] [address] [place] MCH (RBC) [Entitic mass] 28.1 pg Normal 26.0-34.0 [facility] Comment on above: Order Comment: Specimen Type: BLOOD SPEC IMEN Ordering Facility: [facility] Address: [address] [place], [place] [address] Performed By: #### 5 8410-2 #### [facility] CLIA [id number] [address] [place] [address] [place] MCHC (RBC) [Mass/Vol] 30.4 g/dL Low 30.5-36.0 [facility] Comment on above: Order Comment: Specimen Type: BLOOD SPEC IMEN Ordering Facility: [facility] Address: [address] [place] [phone] Performed By: #### 5 8410-2 #### [facility] CLIA [id number] [address] [place] [address] [place] MCV (RBC) [Entitic vol] 92.3 fL Normal 80.0-100.0 [facility] Comment on above: Order Comment: Specimen Type: BLOOD SPEC IMEN Ordering Facility: [facility] Address: [address] [place] [address] Performed By: #### 5 8410-2 #### [facility] CLIA [id number] [address] [place] [address] [place] Nucleated RBC (Bld) [#/Vol] 10*3/uL Normal <0.01 [facility] Comment on above: Order Comment: Specimen Type: BLOOD SPEC IMEN Ordering Facility: [facility] Address: [address] [place], [place] [address] Performed By: #### 5 8410-2 #### [facility] CLIA [id number] [address] [place] [address] [place] Platelet mean volume (Bld) [Entitic vol] 11.1 fL Normal 9.0-12.7 [facility] Comment on above: Order Comment: Specimen Type: BLOOD SPEC IMEN Ordering Facility: [facility] Address: [address] [place] [phone] Performed By: #### 5 8410-2 #### [facility] CLIA [id number] [address] [place] [address] [place] Platelets (Bld) [#/Vol] 251 10*3/uL Normal 150-400 [facility] Comment on above: Order Comment: Specimen Type: BLOOD SPEC IMEN Ordering Facility: [facility] Address: [address] [place] [phone] Performed By: #### 5 8410-2 #### [facility] [place] [id number] [address] [place] [address] [place] RBC (Bld) [#/Vol] 4.17 10*6/uL Normal 3.90-5.20 [facility] Comment on above: Order Comment: Specimen Type: BLOOD SPEC IMEN Ordering Facility: [facility] Address: [address] [place] [address] Performed By: #### 5 8410-2 #### [facility] [place] [id number] [address] [place] [address] [place] WBC (Bld) [#/Vol] 6.02 10*3/uL Normal 3.70-11.00 [facility] Comment on above: Order Comment: Specimen Type: BLOOD SPEC IMEN Ordering Facility: [facility] Address: [address] [place] [address] Performed By: #### 5 8410-2 #### [facility] [place] [id number] [address] [place] [address] OF [place]EF CNOVon 10-16-2021 CNOV Office Visit (CARIMN ) ARTHUR YEN ([id number]) 1945 F Date Time Provider Department 10/16/21 3:00 PM PRINCE TRUJILLO During your visit today, we recorded the following information about you: Pulse Blood pressure Weight Height 65/minute 108/70 76.2 kg 1.524 m Prince Trujillo MD 10/16/2021 10:16 PM [facility] [place] Diane Fuller Department of Cardiovascular Medicine SECTION OF CARDIOVASCULAR IMAGING OUTPATIENT VISIT DATE October 16, 2021 OUTPATIENT VISIT TYPE Established PRIMARY CARE PHYSICIAN: Theresa Valles MD ([facility]) [address] [place] [address] REFERRING PHYSICIAN: Theresa Valles MD ([facility]) [address] [facility] [address] CHIEF COMPLAINT: Follow-up. Subjective HISTORY OF PRESENT [...] kidney disease) stage 4, GFR 15-29 ml/min ([facility]) - Depression - Diabetes mellitus (HCC) type 2 - Diverticulosis - HLD (hyperlipidemia) - HTN (hypertension) - Mitral valve regurgitation moderate to severe per OSH Echo on 06/04/2020 - Morbid obesity ([facility]) - Osteoarthritis - Osteomyelitis (HCC) - PAD (peripheral artery disease) ([facility]) - Spinal stenosis - Tricuspid valve [...] in goo (more content not included)... Normal [facility] Comprehensive metabolic 2000 panelon 10-16-2021 Albumin [Mass/Vol] 3.7 g/dL Low 3.9-4.9 [facility] Comment on above: Order Comment: Specimen Type: BLOOD SPEC IMEN Ordering Facility: [facility] Address: [address] [place] [id number] Performed By: #### 2 4323-8 #### [facility] CLIA [id number] [address] [place] [address] [place] ALP [Catalytic activity/Vol] 105 U/L Normal 34-123 [facility] Comment on above: Order Comment: Specimen Type: BLOOD SPEC IMEN Ordering Facility: [facility] Address: [address] [place] [address] Performed By: #### 2 4323-8 #### [facility] CLIA [id number] [address] [place] [address] [place] ALT [Catalytic activity/Vol] 15 U/L Normal 7-38 [facility] Comment on above: Order Comment: Specimen Type: BLOOD SPEC IMEN Ordering Facility: [facility] Address: [address] [place] [address] Performed By: #### 2 4323-8 #### [facility] CLIA [id number] [address] [place] [address] [place] Anion gap [Moles/Vol] 9 mmol/L Normal 9-18 [facility] Comment on above: Order Comment: Specimen Type: BLOOD SPEC IMEN Ordering Facility: [facility] Address: [address] [place] [address] Performed By: #### 2 4323-8 #### [facility] CLIA [id number] [address] [place] [place] [id number] [place] AST [Catalytic activity/Vol] 27 U/L Normal 13-35 [facility] Comment on above: Order Comment: Specimen Type: BLOOD SPEC IMEN Ordering Facility: [facility] Address: [address] [place] [address] Performed By: #### 2 4323-8 #### [facility] CLIA [id number] [address] [place] [address] [place] Bilirubin [Mass/Vol] 0.3 mg/dL Normal 0.2-1.3 [facility] Comment on above: Order Comment: Specimen Type: BLOOD SPEC IMEN Ordering Facility: [facility] Address: [address] [place], [place] [address] Performed By: #### 2 4323-8 #### [facility] CLIA [id number] [address] [place] [address] [place] Calcium [Mass/Vol] 10.7 mg/dL High 8.5-10.2 [facility] Comment on above: Order Comment: Specimen Type: BLOOD SPEC IMEN Ordering Facility: [facility] Address: [address] [place], [place] [address] Performed By: #### 2 4323-8 #### [facility] CLIA [id number] [address] [place] [address] [place] Chloride [Moles/Vol] 104 mmol/L Normal 97-105 [facility] Comment on above: Order Comment: Specimen Type: BLOOD SPEC IMEN Ordering Facility: [facility] Address: [address] [place] [address] Performed By: #### 2 4323-8 #### [facility] CLIA [id number] [address] [place] [address] [place] CO2 [Moles/Vol] 27 mmol/L Normal 22-30 [facility] Comment on above: Order Comment: Specimen Type: BLOOD SPEC IMEN Ordering Facility: [facility] Address: [address] [place] [address] Performed By: #### 2 4323-8 #### [facility] CLIA [id number] [address] [place] [address] [place] Creatinine [Mass/Vol] 1.75 mg/dL High 0.58-0.96 [facility] Comment on above: Order Comment: Specimen Type: BLOOD SPEC IMEN Ordering Facility: [facility] Address: [address] [place] [address] Performed By: #### 2 4323-8 #### [facility] CLIA [id number] [address] [place] [address] [place] ESTIMATED GLOMERULAR FILTRATION RATE 30 mL/min/1.73m??? Low >=60 [facility] Comment on above: Order Comment: Specimen Type: BLOOD SPEC IMEN Ordering Facility: [facility] Address: [address] [place] [address] Result Comment: Cecelia mated Glomerular Filtration Rate [...] GFR. Performed By: #### 2 4323-8 #### [facility] CLIA [id number] [address] [place] [address] [place] Glucose [Mass/Vol] 74 mg/dL Normal 74-99 [facility] Comment on above: Order Comment: Specimen Type: BLOOD SPEC IMEN Ordering Facility: [facility] Address: [address] [place] [address] Result Comment: The [place] Diabetes Association (ADA) provides guidance for cutoff [...] Standards of Medical Care in Diabetes 2016, [place] [employer]. Diabetes Care. 2016.39(Suppl 1). Performed By: #### 2 4323-8 #### [facility] CLIA [id number] [address] [place] [address] [place] Potassium [Moles/Vol] 4.9 mmol/L Normal 3.7-5.1 [facility] Comment on above: Order Comment: Specimen Type: BLOOD SPEC IMEN Ordering Facility: [facility] Address: [address] [place], [place] [address] Performed By: #### 2 4323-8 #### [facility] CLIA [id number] [address] [place] [address] [place] Protein [Mass/Vol] 7.2 g/dL Normal 6.3-8.0 [facility] Comment on above: Order Comment: Specimen Type: BLOOD SPEC IMEN Ordering Facility: [facility] Address: [address] [place], [place] [address] Performed By: #### 2 4323-8 #### [facility] CLIA [id number] [address] [place] [address] [place] Sodium [Moles/Vol] 140 mmol/L Normal 136-144 [facility] Comment on above: Order Comment: Specimen Type: BLOOD SPEC IMEN Ordering Facility: [facility] Address: [address] [place] [address] Performed By: #### 2 4323-8 #### [facility] CLIA [id number] [address] [place] [address] [place] Urea nitrogen [Mass/Vol] 60 mg/dL High 7-21 [facility] Comment on above: Order Comment: Specimen Type: BLOOD SPEC IMEN Ordering Facility: [facility] Address: [address] [place] [address] Performed By: #### 2 4323-8 #### [facility] CLIA [id number] [address] [place], [place] [address] [place] ECG COMPLETEon 10-16-2021 ECG COMPLETE Ventricular Rate : 6 5 BPM Atrial Rate : 65 BPM P-R Interval : 172 ms QRS Duration : 114 ms Q-T Interval : 390 ms QTC Calculation(Bazett) : 405 ms Calculated P Strang : 56 degrees Calculated R Strang : -66 degrees Calculated T Strang : -106 degrees NORMAL SINUS RHYTHM LEFT AXIS DEVIATION NONSPECIFIC ST AND T WAVE ABNORMALITY ABNORMAL ECG Confirmed by PRABHJTO TOMLINSON MD (22) on 11/08/2021 12:27:03 PM NAME : ARTHUR YEN PID : [id number] : 1945 Gender : Female Race : ORD : [id number] Procedure Date : Oct 16 2021 13:48:20 Edit Date : Nov 08 2021 12:27:54 Diagnosis: NORMAL SINUS RHYTHM LEFT AXIS DEVIATION NONSPECIFIC ST AND T WAVE ABNORMALITY ABNORMAL ECG Confirmed by PRABHJOT TOMLINSON MD () on 11/08/2021 12:27:03 PM Test Reason : Location : [facility] : [place] [address] Overread By : PRABHJOT TOMLINSON MD Edited By : PRABHJOT TOMLINSON MD Referred By : , Acquired by : RIVAS ALVARADO [facility] Lipid 1996 panelon 2 Cholesterol [Mass/Vol] 135 mg/dL Normal <200 [facility] Comment on above: Order Comment: Specimen Type: BLOOD SPEC IMEN Ordering Facility: [facility] Address: [address] [place], [place] [address] Result Comment: <200 mg/dL, Desirable 200-239 mg/dL, Borderline high >239 mg/dL, High Performed By: #### 2 4331-1 #### [facility] CLIA [id number] [address] [place], [place] [address]K [id number] [place] [address] OF [facility] Cholesterol in HDL [Mass/Vol] 58 mg/dL Normal >39 [facility] Comment on above: Order Comment: Specimen Type: BLOOD SPEC IMEN Ordering Facility: [facility] Address: [address] [place], [place] [address] Result Comment: 40-5 9 mg/dL, Acceptable >59 mg/dL, High: Negative risk factor for coronary heart disease <40 mg/dL, Low: Positive risk factor for coronary heart disease Performed By: #### 2 4331-1 #### [facility] CLIA [id number] [address] [place] [address] [place] Cholesterol in LDL [Mass/Vol] 66 mg/dL Normal <100 [facility] Comment on above: Order Comment: Specimen Type: BLOOD SPEC IMEN Ordering Facility: [facility] Address: [address] [place] [address] Result Comment: <100 mg/dL, Optimal 100-129 mg/dL, Near optimal/above optimal 130-159 mg/dL, Borderline high 160-189 mg/dL, High >189 mg/dL, Very high Secondary prevention optimal LDL Cholesterol levels are recommended to be < 70 mg/dL Performed By: #### 2 4331-1 #### [facility] CLIA [id number] [address] [place] [address] [place] Cholesterol in LDL/Cholesterol in HDL [Mass ratio] 1.14 {ratio} Normal <2.54 [facility] Comment on above: Order Comment: Specimen Type: BLOOD SPEC IMEN Ordering Facility: [facility] Address: [address] [place] [address] Result Comment: Refe altonce: 1. National Cholesterol Education Program ATP III Guideline At-A-Glance Quick Desk Reference: National Heart, Lung, and Blood [place]. National Institutes of Health. 2001: NIH Publication No. 01-3305. 2. An International Atherosclerosis Society position paper: global recommendations for the management of dyslipidemia: executive summary, Atherosclerosis. 2014: 232(2):410-413. Performed By: #### 2 4331-1 #### [facility] CLIA [id number] [address] [place] [address] [place] Cholesterol in VLDL [Mass/Vol] 11 mg/dL Normal <30 [facility] Comment on above: Order Comment: Specimen Type: BLOOD SPEC IMEN Ordering Facility: [facility] Address: [address] [place] [address] Performed By: #### 2 4331-1 #### [facility] CLIA [id number] [address] [place] [address] OF [facility] Cholesterol non HDL [Mass/Vol] 77 mg/dL Normal <130 [facility] Comment on above: Order Comment: Specimen Type: BLOOD SPEC IMEN Ordering Facility: [facility] Address: [address] [place], [place] [address] Result Comment: <130 mg/dL, Optimal 130-159 mg/dL, Near optimal/above optimal 160-189 mg/dL, Borderline high 190-219 mg/dL, High >219 mg/dL, Very high Secondary prevention optimal non HDL Cholesterol levels are recommended to be <100 mg/dL Performed By: #### 2 4331-1 #### [facility] CLIA [id number] [address] [place] [address] [place] Cholesterol.tota l/Cholesterol in HDL [Mass ratio] 2.33 {ratio} Normal <5.10 [facility] Comment on above: Order Comment: Specimen Type: BLOOD SPEC IMEN Ordering Facility: [facility] Address: [address] [place], [place] [address] Performed By: #### 2 4331-1 #### [facility] CLIA [id number] [address] [place] [address] [place] OF [facility] FASTING TIME 12 hrs Normal [facility] Comment on above: Order Comment: Specimen Type: BLOOD SPEC IMEN Ordering Facility: [facility] Address: [address] [place] [address] Performed By: #### 2 4331-1 #### [facility] CLIA [id number] [address] [place] [address] [place] Triglyceride [Mass/Vol] 54 mg/dL Normal <150 [facility] Comment on above: Order Comment: Specimen Type: BLOOD SPEC IMEN Ordering Facility: [facility] Address: [address] [place], [place] [address] Result Comment: <150 mg/dL, Normal 150-199 mg/dL, Borderline high 200-499 mg/dL, High >499 mg/dL, Very high Performed By: #### 2 4331-1 #### [facility] CLIA [id number] [address] [place] [address] [place] XR CHEST 2V FRONTAL/LATon XR CHEST 2V FRONTAL/LAT * * *Final Report* * * DATE OF EXAM: Oct 16 2021 2:00PM JIX [id number] - XR CHEST 2V FRONTAL/LAT / PROCEDURE REASON: multiple diagnoses * * * * Physician Interpretation * * * * EXAMINATION: CHEST RADIOGRAPH (2 VIEW FRONTAL and LATERAL) CLINICAL HISTORY: Coronary artery disease involving [place] coronary artery of [place] heart without angina pectoris Nonrheumatic aortic valve [...] atelectasis or pneumonia/aspiration. Radiographic follow-up is suggested. Assistant Public Defender: PSCB Transcribe Date/Time: Oct 16 2021 2:56P Dictated by : MAURA CANALES MD This examination was interpreted and the report reviewed and electronically signed by: MAURA CANALES MD on Oct 16 2021 3:00PM EST [id number] Normal [facility] Coding Summaryon 04-22-2021 Coding Summary HTMLBase 64 SjblovxpBHj1fSn+PGhlYWQ+PE1FVE PhF65bjLSqlB9PG8mEAP0STDILHUQA FF3FRM7hdTM3OEubL5ZwtdZl OnfihLOaFF67HJw2DPB3wJsxHGfvtB 7ohGMkL4l9OxKjWA51wT52WIssXKOq CmA0NqGurqsqzOTj R1dvWsQnpKYrRcn+PHRhYmxlIHdpZH RvVWolVFZgMrGbvMacJD7xJn9nGASd LWNvbGxhcHNlOiBj b3ryTBTuXUjkLD9gvCwdM6WuiSE3DO Sjt8m3Ia48hIG+GVAnSYJ0lOuyZKme c608HmCob8uuLXD9 iFZqBAsxMAS3K60aj6M1ITBoGVAcYZ V0aBC0bA0fcIrsxulpC8DjrJSqGcL4 FGZ8bGObkM3tvUrg rxudyY6bFvm+V93BIW0NJNQPDE5OOx r3E5NlKinbiSO+LQ66TIEiXM08jBTz vMXls7muuDg5WhBy DTTwATZ1sCpmSItzk1PrQXKrM95wrR Ocd3U1YUUefWcnrDDbOaRrnEL4yF1s FMpozzdmd4hnlqvy Eqmbt0tzpr79rP88I89fBYmnGVKlTD C8TBUtURKoyXfmet7foY9yVi3+IDxj m9ggu4nsuRz5ClCj HGViilYagYmzGWV9u9HiVo05E7DksF xnk3NwOtt1gd12sXPrt5A8nEF0CHaj WCSzbL5jOUfwTyD7 UDSbHbNefD68aNPrJIsqMj4bhPvfnC fsQH6rSOCbkzbkYORaeO3fYPNgsYNk sRmaDS3mDPYoslwm n542TuPbHAL0OMXqlTNjI2ZisN1qZv KrYFVhMWVxB7WgyHZaHIbxA981YHib QuT9NSUmnrLyK9Xa PRYtkGhyLaQ6f4N2Nm8Vt3XpqdfmZF L5MQrwZRMmIqZ5EkOwMvE1V4XcNqh9 UDTvnXnvEN7jG9Hm PJMcgksyqfxfzYG3CDOzAONfwM35iG GkFPgfNt3ky7H6l728FGQoAREqcT49 Tc3hvFfjWOVdvOQV gE4uvgxyy4hlcjxaYhTcYPCcQVm8BS z3OTCtgLgpPcTxPND0CeX9BYW9bIId mL3swRlqlfzriG4o Oyc+E61oyG9rZAB2FGZ3hodtSDQzcb IyPZ97KY18L6KwRvmsqRLqmDZ+PGRp isTysUpjCH7uPwOi g6kmt9OrMRfaO4CqYPRcGPulKwt7SB WrFNN8fMU3xM8gTVJgKYuxk1C3nVQ3 O0NctxDgwg7ax2ni BRAvPWjdA83qeKKsy9A1NYCzyQH8OD MqnErpWpQgnB88Jyz+QRAfbBbho7Ma Allnc8pjl8swjPf2 FtYfIFRqajCvpObpATF1i7QeYz15Y7 1kIYcaKDDqHSNaGVUmGBCnuShiax3a oK5zRf9+PGNvbCB3 kFY6xZ4aYZGnBiH2JHedM305BtDfnF IuAtamy2rem5imlIs9NbPwHGRzcyCj nFbtCFP6k1DbXu49 C12yXUzcIGPmOHVrJTCaNUIkbHaouq 1kqO7vTd4+UD1si6fgao55iV31jMY+ NTFoDSQ8mBibXOkp NENouO1pIQvjEeS3PJYbEoCoqD39hO BuYPdgSh8ikErjaJwhUF2hXNUgjkkc x241LoRcw0jlSPPn gYCxJDldUIM6Q92nn1M4MPLhSSIdOA K4vMF0fX4pvXdnddhdgEDeoKriakEu qYhjDMzeJYqxF519 QOPugPfdKxInmTypfsDbYjJiBMh0L7 IjGhi8FENdiFqhWD9gePWrIPavDl2c xGjepJdtVN4jDJOl dypsa135OgVst9ayTIIkeVHeIRdwUJ Q0M10an2N6HKWhGYOrMCC1lSY7kW1s bGlnbjogbGVmdDsg ilUasUnnNWeqXPyaF221KPNgrWifOr HbwsKpBAVgaHI1QA71ED00iHNkd4I1 aSQ1N4PrGZDttoau fzjymCY6IBLvZMRvmY61Iu3pcDklNd 3xKKCyESR2DJMxxYLbZ7DfvK3qOqYt LROjEFEgA5IslUMs HRbaJ262UClzYvM1ZMQlvgBjM9HtYU TtaZaaUzS7b3U6Xy7YB3W0MR54QS39 gJAio1W2rKU3L1Rh FLZeeliqhbigeWJ0PFWsWZXriG85Kk 7rvMhvPp9dRRYtGEG1SMBzcTDjI3Zk hS2pIwHpHEYcUZFx A1YjyEOaSLwoC847ZGnjEiB7IJCrok SbV3JwIBQufIyaPnR9h2U5Gi3WIXn3 JJ99BN12ePRxb9H2 yBU2B8YnUDRldhysbyniaPI4JVZfET XmdH65Li1vfVvuNg6pOCVeFCR5SGMo xCOsM1YnwJ5aZzRh ZHFpDESaA5JtvPMcPNdmT761UQtqLg V7KFEyfhCjR7RlFLAabLiqYwV7t4M0 Sx2FWYMvFE29IUU2 dXC9HV82NW04Y3WaWuvwhWTlqLG+PH RhYmxlIHdpZHRoPScxMDAlJyBzdHls ZG3lWf2vIHQhQMHv hCbnqMMlBsIzi6hrFOTsTRqjJP5oiR wzP0AsqLL8EUZnr9q3Gl71S80eD9Kj dXA+ZZYmeTP3cEP3 eJ8yBzJrNgR8LQfwZ318StLozWYmIf vco1piu7ybmZa8NqP7YEGynpJrzApc HFV8u6IgYx88E50o GDbsCFFbZGLbUIUcAVBojHtobs1jvY 9wIi8+MQLjiKX0xUV7oW8fWkYtNcG6 CTstH654IpFctFJc Pyuue4itn4svvFr3DvMpPNYwzfXgmW hlLAW4e8FqMh80K0IbcHojk6IjOaw2 dl96eTGai3U1aSG2 X8UiRQDnjirvmDNwrWovRO0hMAKqzz tpUHFanM6yTQJbJ1s3WaIoXcW0WLta N8YmvoQ0UVHwlTAr DVktJMF9U29zp1X9IYMcONJfBMZ9gE H5gH4xvWepuylgeCClxWwgznGmuYcj NRmrGApeI561VWLh iRiqRNOeaU1hPTEveJMzuDnmEU0pOD ThwaufGvMMMW3NCbvHWouqCo1OUDqM WwXEBS2DDXwgkVR+ ZLKvYIZ7rDciCVssVMBmyL5fOVApG3 x4GgTaXxH0CEpcV7KfUWDevfeoYy08 oO1zOmQhFkL7GIjh R7RhhoS5COHhpFLzOQlxBFL1I82kv1 B3ZLLoDVVfGSS6eKM1jW4erRtaaenf bGVmdDsgdmVydGlj KKwmWXzfL693WREmdWrsMkF5VjD2Cm L6IDU8M3ItFhe0OAIzaDpwMB1feCTk NYdyTu2oyEuvoAbg XR9dOUYnevxiCWEkbX2cCGFjfLGfpG vbAX6wCUZjmuwpq528NuRnQAH4LDWd zFSwL2LmmG4gQoWr GBLsHQJjT4JqkMWyOMevU349GSklZk L9YAFnkcIbN8TfYHBlaEjkCyB7j7G8 Qm33QaNAQJOocsve dGQ+PCIkGHX7uAiaDLweINIlrY3eBX MzL1h6VrToPdF8AEbaL0QpZOQzykvn Ks65rB1aTrHkFoZ6 PZanX3OmcxA6KDFtfBYrQWtxIQF7F5 9dy5Y9EZJsRYJdDTP5kIG5wY9sbGdq bjogbGVmdDsgdmVy dQotVZqwDTqmG291GIUhlBbsJdUXJW FMRTwvdGQ+FBWdDOF7mIqhYMdjTUYo jI1vTRUzC3g6HfHv VeP1IIuuS3TlSOUbebehVp30yP3nFf XnOlJ1RWlcX7VajsF4XJWadGAkSWpn LKB2I89iz2I4YUJp IYIlDYX0yLF8eO8rsOdfzykihZPhsR ghabOirOfxJBftVJecB842KGJlbLon Qh8QET53FL22Z3Mn PjwvdGFibGU+PHRhYmxlIHdpZHRoPS tmHPOtJwPzmVhuHS0iTk2eIHNnDDFh qWvriRSpYtXbg3zy MBSdAFciNA6ilBqgN6VvwCZ9SBNkx9 l9Eq90X80yN5RzcUV+LTTxuFB9wYD8 tC0dBbMdLdI6LKpi H202RxHoyNSzPwblb1dxi4cwmFd2Vj QnSIXkscJlpTcjQVB9y3KaSl73H65y IHdpZHRoPSIyMCUi FXVsgGahhw6phU4mCz2+YCUatUB9cC J3lR5qHeEkMjK8ZRzbI289CeXmuDSe QkrqR50tM1WyhVR+ DIPcSfz3JALfaOfpJN4qsPIxWYwkGi 8cGRG8YnHdDbSsPMvxK2LaFLNqhclq nysibNC2CSJsAAJb mV22Kx2irLpfZe8zOFBeCNK8XNNjgC RfB2CihB9kXkWtRYQrEHUwR3FtbWHa RIhpN103OGaaFcB3 LSDpnqQnG4DcTHRauIwzJlW2d2Z6Rs 8IjLuqaNGxDM4eDdTnFNw1W8FqWte7 RACwaLyaGI4rgOZm HDbcFj4rqLlcmGauST6eENEadnuog8 01LrUgj5ruJRPmdACfRWsiCJK3T52u q4V4HFJmJWTxYGN9 uEP6pJ9yhWkgehmvkQSseXdyegCtoD duRDvsJKieX737IGAsjEctUsCFGiu3 L1WnPff5QZNcqSgx IG3rqAMhDIalXe5kdSjshTttTD8vYE Miduwlm863DeCqn5vqRNUltTWhKWrs HMW8X25zr4W2HAJt LCQkGJK6bZL3oZ4plNvtlmullNYyvF yfizVxsZrgZMqzTNrjF830OSTbiCrn Mn7FLig6N7OqFmt1 KTYmpMbcHZ8saPOdIRjjGw4xyRfydY qgOU6gELOtjgqwn419ZySsw2ixOFJh vTDkSTqwSZF4J61t p7F7QFEdQDPtAIR2lXT0gJ1wqAwczm wctNRckTziopMceUcmKUztRAsbJ572 IHRvcDsnPlBheWVy OjwvdGQ+MH58ez59S2MgKzzlFbc1AD MwVBY5sLT1sC2pKBGiGEywa4H8oFI3 H9XdihFovf1dy7bi YXB (more content not included)... [facility] Consent Formson 04-22-2021 Consent Forms [id number] [facility] Provider Orderson 04-22-2021 Provider Orders [id number]#[id number] [facility] Progress Note - Nurseon 04-06 Progress Note - Nurse pt tolerated infusion with no signs and symptoms of reaction. pt discharged with understanding of instructions. [Electronically Signed on: 05/29/2021 12:07 EST] Christian Padilla RN [Verified on: 05/29/2021 12:07 EST] Christian Padilla RN [facility] Covid-19 PCR (CVDTB)on 04-06 SARS-CoV-2 (COVID-19) RNA LYNDSEY+probe Ql (Unsp spec) Detected Critically abnormal NOT DETECTED [facility] Comment on above: Result Comment: This test is not yet andria roved or cleared by the [place] FDA. When there are no FDA-approved or cleared tests available, and other criteria are met, FDA can make tests available under an emergency access mechanism called an Emergency Use Authorization (EUA). The EUA for this test is supported by the Dry Curer of Health and Human Service's (HHS's) declaration [...] used). Performed By: #### C VDTBH #### [facility] [address] [place] [address] Dr. Joyce Clemons INFLUENZA A AND B AGon 04-15 INFLUANE SEE BELOW Normal [facility] Comment on above: Result Comment: Negative for Flu A prote in angiten. Infection due to Flu A cannot be ruled out. Flu A angiten in the sample may be below the detection limit of the test. Performed By: #### I NFLUAB #### [facility] [address] [place] [address] Dr. Joyce Clemons INFLUBNEGH SEE BELOW Normal [facility] Comment on above: Result Comment: Negative for Flu B prote in antigen. Infection due to Flu B cannot be ruled out. Flu B antigen in the sample may be below the detection limit of the test. Performed By: #### I NFLUAB #### [facility] [address] [place] [address] Dr. Joyce Clemons INFLUENZA A AG Negative Normal NEGATIVE SEE COMMENT [facility] Comment on above: Performed By: #### INFLUAB #### [facility] [address] [place] [address] Dr. Joyce Clemons INFLUENZA B AG Negative Normal NEGATIVE SEE COMMENT [facility] [place] Comment on above: Performed By: #### INFLUAB #### [facility] [address] [place] [address] Dr. Joyce Clemons INTERNAL CONTROLS Within Normal Limits Normal Within Normal Limits [facility] Comment on above: Performed By: #### INFLUAB #### [facility] [address] [place] [address] Dr. Joyce Clemons Q - CULTURE,URINE,ROUTINEon 04-15-2021 CULTURE, URINE, ROUTINE SEE NOTE Abnormal [facility] [employer] Comment on above: Order Comment: [facility]R Testing performed at: QPT, [facility], [address] [place] [address], [address] [place] [address], [place], [address], Model Dresser: Breezy Palomo MD [facility] Collection Date/Time: [facility] Results Received Date/Time: [id number] [facility] Reported Date/Time: [id number] Result Comment: CULT URE, URINE, ROUTINE Micro Number: [id number] Test Status: Final Specimen Source: Not given [...] #### 6 304R #### [facility] Default [address] [place] [address] BNPon 09-15-2020 Natriuretic peptide B (Bld) [Mass/Vol] 91327.0 pg/mL Critically high <=1,800.0 [facility] Comment on above: Result Comment: test repeated, critical value verified Performed By: #### C MADM, CMP, BNP #### [facility] [address] [place], [place] [address] Huy Whitehead CARDIAC LYNNE ADMITon 021 CK [Catalytic activity/Vol] 67 U/L Normal 30-135 [facility] Comment on above: Performed By: #### CMADM, CMP, BNP #### [facility] [address] [place] [id number] Huy Whitehead CK.MB [Mass/Vol] 2.32 ng/mL Normal <=2.37 The [facility] Comment on above: Performed By: #### CMADM, CMP, BNP #### [facility] [address] [place] [address] Huy Whitehead HSTROP 27.7 pg/mL Normal 4.0-35.5 [facility] Comment on above: Result Comment: CUT-OFF POINTS HAVE BEEN ESTABLISHED BASED ON THE FOURTH UNIVERSAL DEFINITIONS OF MYOCARDIAL INFARCTION. THE UPPER REFERENCE LIMIT (URL) OF TROPONIN, DEFINED THE 99TH PERCENTILE OF cTnI DISTRIBUTION IN A REFERENCE POPULATION, HAS BEEN CONFIRMED THE DECISION THRESHOLD FOR WI DIAGNOSIS. Performed By: #### C MADM, CMP, BNP #### [facility] [address] [place] [address] Huy Whitehead STEPHIE 328.0 ng/mL Critically high <=61.5 The [facility] Comment on above: Result Comment: test repeated, critical value verified Performed By: #### C MADM, CMP, BNP #### [facility] [address] [place] [id number] Huy Whitehead CBC AUTO DIFFon 09-15-2020 BASO # 0.1 103/ul Normal 0.0-0.1 [facility] Comment on above: Performed By: #### CBC ####[facility] [id number] [place] [address]Gerken Charley Basophils/100 WBC (Bld) 0.7 % Normal 0.2-2.0 [facility] Comment on above: Performed By: #### CBC ####[facility] [address] [place] [address]Gerken Charley EO # 0.2 103/ul Normal 0.0-0.7 [facility] Comment on above: Performed By: #### CBC ####[facility] [address]ur55[address] [place] [address] Eosinophils/100 WBC (Bld) 1.9 % Normal 0.9-7.0 [facility] [place] Comment on above: Performed By: #### CBC ####[facility] [address] [place] [address] [place] Erythrocyte distribution width (RBC) [Ratio] 17.3 % Critically high 11.0-15.0 [facility] [place] Comment on above: Performed By: #### CBC ####[facility] [address] [place] [address] [place] Hematocrit (Bld) [Volume fraction] 36.5 % Normal 36.0-48.0 [facility] [place] Comment on above: Performed By: #### CBC ####[facility] [address] [place] [address] [place] Hemoglobin (Bld) [Mass/Vol] 11.1 g/dL Critically low 12.0-16.0 [facility] [place] Comment on above: Performed By: #### CBC ####[facility] [address] [place] [address] [place] IG # 0.02 10e3/ul Normal 0.00-0.03 [facility] Comment on above: Performed By: #### CBC ####[facility] [address] [place] [address] [place] IG % 0.2 % Normal 0.0-0.5 [facility] Comment on above: Performed By: #### CBC ####[facility] [address] [place] [address] [place] LYMPH # 0.7 103/ul Critically low 1.2-3.8 [facility] Comment on above: Performed By: #### CBC ####[facility] [address] [place] [address] [place] Lymphocytes/100 WBC (Bld) 8.4 % Critically low 20.5-60.0 [facility] Comment on above: Performed By: #### CBC ####[facility] [address] [place] [address] [place] MANUAL DIFF REQ NO Normal [facility] Comment on above: Performed By: #### CBC ####[facility] Behwfuqijh9321 [address] [place] MCH (RBC) [Entitic mass] 29.8 pg Normal 26.7-34.0 [facility] Comment on above: Performed By: #### CBC ####[facility] ital Wrzhwrhuhn2155 [address] [place] MCHC (RBC) [Mass/Vol] 30.4 g/dL Normal 29.9-35.2 [facility] Comment on above: Performed By: #### CBC ####[facility] Xduhiqtwbc2512 [address] [place] MCV (RBC) [Entitic vol] 97.9 fL Normal 81.0-99.0 [facility] Comment on above: Performed By: #### CBC ####[facility] [address] [place] [address] [place] MONO # 0.5 103/ul Normal 0.3-0.8 [facility] Comment on above: Performed By: #### CBC ####[facility] [address] [place] [address] [place] Monocytes/100 WBC (Bld) 6.4 % Normal 1.7-12.0 [facility] Comment on above: Performed By: #### CBC ####[facility] Qgwemnmtqm0492 [address] [place] NEUT # 6.8 103/ul Critically high 1.4-6.5 [facility] Comment on above: Performed By: #### CBC ####[facility] [address] [place] [address] [place] Neutrophils/100 WBC (Bld) 82.4 % Critically high 43.0-75.0 [facility] Comment on above: Performed By: #### CBC ####[facility] [address] [place] [address] [place] Platelet mean volume (Bld) [Entitic vol] 11.0 fL Normal 9.5-13.5 [facility] [place] Comment on above: Performed By: #### CBC ####[facility] Oirdrkhrun1449 [place], [place] [address]HjpfsdHuy Whitehead PLT 282 103/ul Normal 150-450 [facility] Comment on above: Performed By: #### CBC ####[facility] [id number] [place], [place] [address]Pcwdfx Charley RBC 3.73 106/ul Critically low 4.20-5.40 [facility] Comment on above: Performed By: #### CBC ####[facility] Tezslnigyu6554 [place], [place] [address]Uqynbx Karen WBC 8.3 103/ul Normal 4.0-11.0 [facility] Comment on above: Performed By: #### CBC ####[facility] ital Vrbpdvirxc4987 [place], [place] [address]PqqbhqHuy Whitehead OCC BLD IMMUNO SCREENon 09-04 OCCULT BLOOD Positive Abnormal NEGATIVE [facility] [place] Comment on above: Performed By: #### OBSCRN #### [facility] [address] [place], [place] [address] Huy Whitehead PROF 14(COMP METB)on 021 Albumin [Mass/Vol] 2.8 g/dL Critically low 3.5-5.0 [facility] Comment on above: Performed By: #### CMADM, CMP, BNP #### [facility] [address] [place] [id number] Huy Whitehead Albumin/Globulin [Mass ratio] 0.7 {ratio} Normal [facility] Comment on above: Performed By: #### CMADM, CMP, BNP #### [facility] [address] [place], [place] [address] Huy Charley ALP [Catalytic activity/Vol] 142 U/L Critically high 38-126 [facility] Comment on above: Performed By: #### CMADM, CMP, BNP #### [facility] [address] [place], [place] [address] Huy Whitehead ALT [Catalytic activity/Vol] 22 U/L Normal 9-52 [facility] Comment on above: Performed By: #### CMADM, CMP, BNP #### [facility] [address] [place] [id number] Huy Charley Anion gap [Moles/Vol] 11.4 mmol/L Normal [facility] Comment on above: Performed By: #### CMADM, CMP, BNP #### [facility] [address] [place] [address] Huy Charley AST [Catalytic activity/Vol] 28 U/L Normal 14-36 [facility] Comment on above: Performed By: #### CMADM, CMP, BNP #### [facility] [address] [place] [address] Huy Charley Bilirubin [Mass/Vol] 0.4 mg/dL Normal 0.2-1.3 [facility] Comment on above: Performed By: #### CMADM, CMP, BNP #### [facility] [address] [place] [address] Huy Charley Calcium [Mass/Vol] 9.6 mg/dL Normal 8.4-10.2 [facility] Comment on above: Performed By: #### CMADM, CMP, BNP #### [facility] [address] [place] [address] Huy Charley Chloride [Moles/Vol] 107 mmol/L Normal 98-107 [facility] Comment on above: Performed By: #### CMADM, CMP, BNP #### [facility] [address] [place] [address] Huy Charley CO2 [Moles/Vol] 29.9 mmol/L Normal 22.0-30.0 The [facility] Comment on above: Performed By: #### CMADM, CMP, BNP #### [facility] [address] [place] [address] Huy Charley Creatinine [Mass/Vol] 1.52 mg/dL Critically high 0.52-1.04 [facility] Comment on above: Performed By: #### CMADM, CMP, BNP #### [facility] [address] [place] [address] Huy Charley EGFR-AF BRITISH 40 mL/min/1.73m2 Critically low >=60 [facility] Comment on above: Performed By: #### CMADM, CMP, BNP #### [facility] [address] [address] Huy Charley EGFR-NON AF BRITISH 33 mL/min/1.73m2 Critically low >=60 [facility] Comment on above: Performed By: #### CMADM, CMP, BNP #### [facility] [address] [address] Huy Charley Globulin (S) [Mass/Vol] 4.3 g/dL Normal [facility] Comment on above: Performed By: #### CMADM, CMP, BNP #### [facility] [address] [address] Huy Charley Glucose [Mass/Vol] 206 mg/dL Critically high 74-106 [facility] Comment on above: Performed By: #### CMADM, CMP, BNP #### [facility] [address] [address] Huy Charley Potassium [Moles/Vol] 4.3 mmol/L Normal 3.4-5.0 [facility] Comment on above: Performed By: #### CMADM, CMP, BNP #### [facility] [address] [place] [address] Huy Charley Protein [Mass/Vol] 7.1 g/dL Normal 6.1-8.2 [facility] Comment on above: Performed By: #### CMADM, CMP, BNP #### [facility] [address] [place] [address] Huy Charley Sodium [Moles/Vol] 144 mmol/L Normal 137-145 [facility] Comment on above: Performed By: #### CMADM, CMP, BNP #### [facility] [address] [address] Huy Charley Urea nitrogen [Mass/Vol] 38.0 mg/dL Critically high 7.0-17.0 [facility] Comment on above: Performed By: #### CMADM, CMP, BNP #### [facility] [address] [place] [address] Huy Whitehead Urea nitrogen/Creatin ine [Mass ratio] 25.0 mg/mg Normal [facility] Comment on above: Performed By: #### CMADM, CMP, BNP #### [facility] [address] [place] [address] Huy Whitehead PROTIMEon 09-15-2020 INR Coag (PPP) [Relative time] 1.61 {INR} Normal [facility] Comment on above: Performed By: #### PTT, PT #### [facility] [address] [place] [address] Huy Whitehead INR GUIDELINES SEE BELOW Normal [facility] Comment on above: Result Comment: DESIRED INR: 2.0 - 3.0 C ONDITIONS NOT LISTED BELOW 2.5 - 3.5 FOR PROSTHETIC HEART VALVE REPLACEMENT 2.5 - 3.5 RECURRENT THROMBOSIS Performed By: #### P TT, PT #### [facility] [address] [place] [address] Huy Whitehead PT Coag (PPP) [Time] 17.2 s Critically high 9.0-11.6 [facility] Comment on above: Performed By: #### PTT, PT #### [facility] [address] [place], [place] [id number] Huy Whitehead PTTon 09-15-2020 aPTT Coag (Bld) [Time] 31.2 s Normal 22.3-36.2 [facility] Comment on above: Performed By: #### PTT, PT #### [facility] [address] [place] [address] Huy Whitehead XR CHEST 1 Von 09-15-2020 XR [...] subsegmental right perihilar atelectasis. Electronically authenticated by: JUNI ZIMMERMAN Date: 2020-09-15 14:49 Normal [facility] PROF CHEM 8 (BAS METB)on Anion gap [Moles/Vol] 9.2 mmol/L Normal [facility] Comment on above: Performed By: #### BMP #### [facility] [address] [place] [address] Huy Charley Calcium [Mass/Vol] 9.5 mg/dL Normal 8.4-10.2 [facility] Comment on above: Performed By: #### BMP #### [facility] [address] [place] [address] Huy Chraley Chloride [Moles/Vol] 111 mmol/L Critically high 98-107 [facility] Comment on above: Performed By: #### BMP #### [facility] [address] [place] [address] Huy Charley CO2 [Moles/Vol] 31.3 mmol/L Critically high 22.0-30.0 [facility] Comment on above: Performed By: #### BMP #### [facility] [address] [place] [address] Huy Charley Creatinine [Mass/Vol] 1.56 mg/dL Critically high 0.52-1.04 [facility] Comment on above: Performed By: #### BMP #### [facility] [address] [place] [address] Huy Charley EGFR-AF BRITISH 39 mL/min/1.73m2 Critically low >=60 [facility] Comment on above: Performed By: #### BMP #### [facility] [address] [place] [address] Huy Charley EGFR-NON AF BRITISH 32 mL/min/1.73m2 Critically low >=60 [facility] Comment on above: Performed By: #### BMP #### [facility] [address] [place] [address] Huy Charley Glucose [Mass/Vol] 89 mg/dL Normal 74-106 [facility] Comment on above: Performed By: #### BMP #### [facility] [address] [place], [place] [address] Huy Charley Potassium [Moles/Vol] 4.5 mmol/L Normal 3.4-5.0 [facility] Comment on above: Performed By: #### BMP #### [facility] [address] [place], [place] [address] Huy Charley Sodium [Moles/Vol] 147 mmol/L Critically high 137-145 [facility] Comment on above: Performed By: #### BMP #### [facility] [address] [place], [place] [address] Huy Charley Urea nitrogen [Mass/Vol] 53.0 mg/dL Critically high 7.0-17.0 [facility] Comment on above: Performed By: #### BMP #### [facility] [address] [place] [id number] Huy Charley Urea nitrogen/Creatin ine [Mass ratio] 34.0 mg/mg Normal [facility] Comment on above: Performed By: #### BMP #### [facility] [address] [place], [place] [address] Huy Charley FOOT LEFT 2 [facility] 06-04-2017 FOOT LEFT 2 [facility] [address] [place] [id number] Patient Name: ARTHUR YEN : 1945Sex: FAge: Race: WhiteMRN: [id number]. Location: 84Patient Status: Date: 06/04/2017 9:30:00 AMCompleted Date: 06/04/2017 09:34 AMRequesting Provider: FELIPE NINO Attending Provider: Report Copy To: Signs & Symptoms: M79.672 Pain in left foot [id number]: AthenaComments: , , Views (X-RAY, FOOT): AP, Lateral , , , Ordering Provider - FELIPE NINO MD , Exam: FOOT LEFT 2 VWSAccession #: [id number] FOOT LEFT 2 VWS 06/04/2017 9:34 AM [...] swelling Electronically signed by:Jackie Chicas. Transcribed by: [email or web address], User Resident: Electronically Signed by: JACKIE CHICAS @ 06/04/2017 11:38 AM Normal [facility] Comment on above: Order Comment: , , Views (X-RAY, FOOT): AP, Lateral , , , Ordering Provider - FELIPE NINO MD , Discharge Summaryon 05-06-19 18 Discharge Summary MR#: 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 The patient wasad[facility] under the OrthopedicSurgery Service. Infectious Disease [...] be additional documentation fromme. Date Dict: 05/05/2017/12:20 P/Jean Claude Thomas Trans: 05/06/2017 08:32 A/Genesis_JN:[id number]: Self Referred Normal [facility] BASIC METABOLIC PANELon 04-07 Calcium 8.6 mg/dL Normal 8.6-10.3 [facility] Comment on above: Order Comment: No: Do not add to previou s draw Performed By: #### 6 2586 ####[facility] [place] [address], [facility] Chloride 109 mmol/L High 98-107 [facility] Comment on above: Order Comment: No: Do not add to previou s draw Performed By: #### 6 2586 ####[facility] [place] [address], [facility] CO2 23 mmol/L Normal 21-31 [facility] Comment on above: Order Comment: No: Do not add to previou s draw Performed By: #### 6 2586 ####[facility] [place] [address], [facility] Creatinine 2.66 mg/dL High 0.60-1.20 [facility] Comment on above: Order Comment: No: Do not add to previou s draw Performed By: #### 6 2586 ####[facility] [place] [address], [facility] eGFR (black) 22 ml/min/1.73sq m Abnormal >60 [facility] Comment on above: Order Comment: No: Do not add to previou s draw Result Comment: Calc ulation may not be valid for patients over 70 years Performed By: #### 6 2586 ####[facility] [place] [address], [facility] eGFR (non-black) 18 ml/min/1.73sq m Abnormal >60 [facility] Comment on above: Order Comment: No: Do not add to previou s draw Result Comment: Calc ulation may not be valid for patients over 70 years Performed By: #### 6 2586 ####[facility] [place] [address], [facility] Glucose mass conc 223 mg/dL High 70-100 [facility] Comment on above: Order Comment: No: Do not add to previou s draw Performed By: #### 6 2586 ####[facility] [place] [address], [facility] Potassium molar conc 3.9 mmol/L Normal 3.5-5.1 [facility] Comment on above: Order Comment: No: Do not add to previou s draw Performed By: #### 6 2586 ####[facility] [place] [address], [facility] Sodium 138 mmol/L Normal 136-145 [facility] Comment on above: Order Comment: No: Do not add to previou s draw Performed By: #### 6 2586 ####[facility] [place] [address], [facility] Urea nitrogen 71 mg/dL High 7-25 [facility] Comment on above: Order Comment: No: Do not add to previou s draw Performed By: #### 6 2586 ####[facility] CBC COMPLETE BLOOD COUNTon 0 - Erythrocyte distribution width Auto Ratio (RBC) 14.8 % Normal 11.5-16.9 [facility] Comment on above: Order Comment: No: Do not add to previou s draw Performed By: #### 6 2586 ####[facility] [place] [address], [facility] Erythrocytes (RBC) 3.07 mill/mm3 Low 3.50-5.50 [facility] Comment on above: Order Comment: No: Do not add to previou s draw Performed By: #### 6 2586 ####[facility] [place] [address], [facility] Hematocrit (HCT) 26.9 % Low 36.0-48.0 [facility] Comment on above: Order Comment: No: Do not add to previou s draw Performed By: #### 6 2586 ####[facility] Hemoglobin mass conc (Bld) 8.8 g/dL Low 12.0-15.0 [facility] Comment on above: Order Comment: No: Do not add to previou s draw Performed By: #### 6 2586 ####[facility] MCH 28.8 pg Normal 24.0-32.0 [facility] Comment on above: Order Comment: No: Do not add to previou s draw Performed By: #### 6 2586 ####[facility] MCHC mass conc (RBC) 32.8 g/dL Normal 32.0-36.0 [facility] Comment on above: Order Comment: No: Do not add to previou s draw Performed By: #### 6 2586 ####[facility] [facility].[address] MCV 87.9 fL Normal 80.0-100.0 [facility] Comment on above: Order Comment: No: Do not add to previou s draw Performed By: #### 6 2586 ####[facility] [facility].[address] PLAT CNT 237 Thou/mm3 Normal 100-400 [facility] Comment on above: Order Comment: No: Do not add to previou s draw Performed By: #### 6 2586 ####[facility] [facility] [place] [address], [facility] WBC (Leukocytes) 10.1 Thou/mm3 High 4.0-10.0 [facility] Comment on above: Order Comment: No: Do not add to previou s draw Performed By: #### 6 2586 ####[facility] [facility] [place] [address], [facility] CPKon 05-01-2017 Creatine kinase (CK) 182 U/L Normal 30-223 [facility] Comment on above: Performed By: #### [id number] ####[facility] [facility] [place] [address], [facility] MAGNESIUM BLOODon 05-01-2017 Magnesium 2.2 mg/dL Normal 1.9-2.7 [facility] Comment on above: Performed By: #### [address] ####[facility] [facility] [place] [address], [facility] POC GLUCOSE LABon 05-01-2017 Glucose mass conc 308 mg/dL High 70-100 [facility] Comment on above: Performed By: #### [address] ####[address] [place] [address], [facility] Glucose mass conc 285 mg/dL High 70-100 [facility] Comment on above: Performed By: #### [id number] ####[address] [place] [address], [facility] Glucose mass conc 223 mg/dL High 70-100 [facility] Comment on above: Performed By: #### [address] ####[place] [address] [facility] [place] [address], [facility] URIC ACID BLOODon 05-01-2017 Urate 10.3 mg/dL High 2.3-6.6 [facility] Comment on above: Performed By: #### [address] ####[address], [place] [address] [place] [address] US RENAL ECHOGRAM COMPLETEon 05-01-2017 US RENAL ECHOGRAM COMPLETE [facility] [address] [place] [id number] Patient Name: ARTHUR YEN : 1945Sex: FAge: Race: WhiteMRN: [id number]. Location: [id number] Status: IVisit #: [id number] Date: 05/01/2017 9:20:00 AMCompleted Date: 05/01/2017 12:08 PMRequesting Provider: SHAHIDA LYN Attending Provider: STANFORD SINGH Report Copy To: Signs & Symptoms: Increased CreatinineHistory: Patient history not availableComments: OtherExam: US RENAL ECHOGRAM COMPLETEAccession #: [id number] US RENAL ECHOGRAM COMPLETE 05/01/2017 12:08 PM [...] ultrasound. Electronically signed by:Polo Chaves. Transcribed by: [email or web address], User Resident: Electronically Signed by: POLO CHAVES @ 05/01/2017 02:36 PM Normal [facility] Comment on above: Order Comment: Other BASIC METABOLIC PANELon 04-07 Calcium 9.5 mg/dL Normal 8.6-10.3 [facility] Comment on above: Order Comment: No: Do not add to previou s draw Performed By: #### 8 5499 ####[facility] [place] [address], [facility] Chloride 108 mmol/L High 98-107 [facility] Comment on above: Order Comment: No: Do not add to previou s draw Performed By: #### 8 5499 ####[facility] [place] [address], [facility] CO2 25 mmol/L Normal 21-31 [facility] Comment on above: Order Comment: No: Do not add to previou s draw Performed By: #### 8 5499 ####[facility] [place] [address], [facility] Creatinine 2.41 mg/dL High 0.60-1.20 [facility] Comment on above: Order Comment: No: Do not add to previou s draw Performed By: #### 8 5499 ####[facility] [place] [address], [facility] eGFR (black) 24 ml/min/1.73sq m Abnormal >60 [facility] Comment on above: Order Comment: No: Do not add to previou s draw Result Comment: Calc ulation may not be valid for patients over 70 years Performed By: #### 8 5499 ####[facility] [place] [address], [facility] eGFR (non-black) 20 ml/min/1.73sq m Abnormal >60 [facility] Comment on above: Order Comment: No: Do not add to previou s draw Result Comment: Calc ulation may not be valid for patients over 70 years Performed By: #### 8 5499 ####[facility] [place] [address], [facility] Glucose mass conc 162 mg/dL High 70-100 [facility] Comment on above: Order Comment: No: Do not add to previou s draw Performed By: #### 8 5499 ####[facility] [place] [address], [facility] Potassium molar conc 3.9 mmol/L Normal 3.5-5.1 [facility] Comment on above: Order Comment: No: Do not add to previou s draw Performed By: #### 8 5499 ####[facility] [place] [address], [facility] Sodium 139 mmol/L Normal 136-145 [facility] Comment on above: Order Comment: No: Do not add to previou s draw Performed By: #### 8 5499 ####[facility] [place] [address], [facility] Urea nitrogen 64 mg/dL High 7-25 [facility] Comment on above: Order Comment: No: Do not add to previou s draw Performed By: #### 8 5499 ####[facility], [place] [address] [place] [address] CBC COMPLETE BLOOD COUNTon 0 04-30-2017 Erythrocyte distribution width Auto Ratio (RBC) 14.0 % Normal 11.5-16.9 [facility] Comment on above: Order Comment: No: Do not add to previou s draw Performed By: #### 8 5499 ####[facility] [place] [address], [facility] Erythrocytes (RBC) 3.64 mill/mm3 Normal 3.50-5.50 [facility] Comment on above: Order Comment: No: Do not add to previou s draw Performed By: #### 8 5499 ####[facility] [place] [address], [facility] Hematocrit (HCT) 32.0 % Low 36.0-48.0 [facility] Comment on above: Order Comment: No: Do not add to previou s draw Performed By: #### 8 5499 ####[facility] [place] [address], [place] Hemoglobin mass conc (Bld) 10.5 g/dL Low 12.0-15.0 [facility] Comment on above: Order Comment: No: Do not add to previou s draw Performed By: #### 8 5499 ####[facility] MCH 29.0 pg Normal 24.0-32.0 [facility] Comment on above: Order Comment: No: Do not add to previou s draw Performed By: #### 8 5499 ####[facility] MCHC mass conc (RBC) 33.0 g/dL Normal 32.0-36.0 [facility] Comment on above: Order Comment: No: Do not add to previou s draw Performed By: #### 8 5499 ####[facility] [facility].[address] MCV 87.9 fL Normal 80.0-100.0 [facility] Comment on above: Order Comment: No: Do not add to previou s draw Performed By: #### 8 5499 ####[facility] [facility].[address] PLAT CNT 312 Thou/mm3 Normal 100-400 [facility] Comment on above: Order Comment: No: Do not add to previou s draw Performed By: #### 8 5499 ####[facility] [facility].[address] WBC (Leukocytes) 16.1 Thou/mm3 High 4.0-10.0 [facility] Comment on above: Order Comment: No: Do not add to previou s draw Performed By: #### 8 [id number] ####[facility] [facility].[address] Operative Reporton 8 Operative Report MR#: [id number] [facility] Samreen Arthur Room #: [id number] Discharge Date: Birthdate: 1945 OPERATIVE REPORTDATE OF [...] and she was followed up by her diet assistant. About 2weeks ago, she had a superficial debridement for removal of a callosity ofthe toe by her diet assistant, after which she started developing a redness [...] 12:57 P Felipe Nino MDDate Dict: 04/29/2017/12:56 P/HEATH Richate Trans: 04/29/2017 11:30 P/mmoDN_JN:[id number] Normal [facility] POC GLUCOSE LABon 04-30-2017 Glucose mass conc 319 mg/dL High 70-100 [facility] Comment on above: Performed By: #### [id number] ####[facility] [facility] [place] [address], [facility] Glucose mass conc 226 mg/dL High 70-100 [facility] Comment on above: Performed By: #### 29027 ####[facility] [facility] [place] [address], [facility] Glucose mass conc 316 mg/dL High 70-100 [facility] Comment on above: Performed By: #### 58851 ####[facility] [facility] [place] [address], [facility] Glucose mass conc 215 mg/dL High 70-100 [facility] Comment on above: Performed By: #### 16956 ####[place] [id number] [facility] [place] [address], [facility] BASIC METABOLIC PANELon 04-07 Calcium 9.8 mg/dL Normal 8.6-10.3 [facility] Comment on above: Order Comment: No: Do not add to previou s draw Performed By: #### 0 0071 ####[facility] [place] [address], [facility] Chloride 105 mmol/L Normal 98-107 [facility] Comment on above: Order Comment: No: Do not add to previou s draw Performed By: #### 0 0071 ####[facility] [place] [address], [facility] CO2 27 mmol/L Normal 21-31 [facility] Comment on above: Order Comment: No: Do not add to previou s draw Performed By: #### 0 0071 ####[facility] [place] [address], [facility] Creatinine 2.11 mg/dL High 0.60-1.20 [facility] Comment on above: Order Comment: No: Do not add to previou s draw Performed By: #### 0 0071 ####[facility] [place] [address], [facility] eGFR (black) 28 ml/min/1.73sq m Abnormal >60 [facility] Comment on above: Order Comment: No: Do not add to previou s draw Result Comment: Calc ulation may not be valid for patients over 70 years Performed By: #### 0 0071 ####[facility] [place] [address], [facility] eGFR (non-black) 23 ml/min/1.73sq m Abnormal >60 [facility] Comment on above: Order Comment: No: Do not add to previou s draw Result Comment: Calc ulation may not be valid for patients over 70 years Performed By: #### 0 0071 ####[facility] [place] [address], [facility] Glucose mass conc 127 mg/dL High 70-100 [facility] Comment on above: Order Comment: No: Do not add to previou s draw Performed By: #### 0 0071 ####[facility] Potassium molar conc 4.3 mmol/L Normal 3.5-5.1 [facility] Comment on above: Order Comment: No: Do not add to previou s draw Performed By: #### 0 0071 ####[facility] Sodium 139 mmol/L Normal 136-145 [facility] Comment on above: Order Comment: No: Do not add to previou s draw Performed By: #### 0 0071 ####[facility] Urea nitrogen 56 mg/dL High 7-25 [facility] Comment on above: Order Comment: No: Do not add to previou s draw Performed By: #### 0 0071 ####[facility] CBC COMPLETE BLOOD COUNTon 0 - Erythrocyte distribution width Auto Ratio (RBC) 13.8 % Normal 11.5-16.9 [facility] Comment on above: Order Comment: No: Do not add to previou s draw Performed By: #### 0 0071 ####[facility] Erythrocytes (RBC) 3.53 mill/mm3 Normal 3.50-5.50 [facility] Comment on above: Order Comment: No: Do not add to previou s draw Performed By: #### 0 0071 ####[facility] Hematocrit (HCT) 31.0 % Low 36.0-48.0 [facility] Comment on above: Order Comment: No: Do not add to previou s draw Performed By: #### 0 0071 ####[facility] [place] [address], [facility] Hemoglobin mass conc (Bld) 10.3 g/dL Low 12.0-15.0 [facility] Comment on above: Order Comment: No: Do not add to previou s draw Performed By: #### 0 0071 ####[facility] [place] [address], [facility] MCH 29.2 pg Normal 24.0-32.0 [facility] Comment on above: Order Comment: No: Do not add to previou s draw Performed By: #### 0 0071 ####[facility] MCHC mass conc (RBC) 33.2 g/dL Normal 32.0-36.0 [facility] Comment on above: Order Comment: No: Do not add to previou s draw Performed By: #### 0 0071 ####[facility] MCV 87.8 fL Normal 80.0-100.0 [facility] Comment on above: Order Comment: No: Do not add to previou s draw Performed By: #### 0 0071 ####[facility] [place] [address], [facility] PLAT CNT 311 Thou/mm3 Normal 100-400 [facility] Comment on above: Order Comment: No: Do not add to previou s draw Performed By: #### 0 0071 ####[facility] WBC (Leukocytes) 15.1 Thou/mm3 High 4.0-10.0 [facility] Comment on above: Order Comment: No: Do not add to previou s draw Performed By: #### 0 0071 ####[facility] CPKon 04-29-2017 Creatine kinase (CK) 93 U/L Normal 30-223 [facility] Comment on above: Performed By: #### 89838 ####[facility] FOOT LEFT 2 VWSon 04-29-2017 FOOT LEFT 2 VWS [facility] [place] [address] Patient Name: ARTHUR YEN : 1945Sex: FAge: Race: WhiteMRN: [id number]. Location: [id number] Status: IVisit #: [id number] Date: 04/29/2017 10:45:00 AMCompleted Date: 04/29/2017 12:36 PMRequesting Provider: FELIPE NINO Attending Provider: FELIPE NINO Report Copy To: Signs & Symptoms: intra-op left great toe amputationHistory: intra-op left great toe amputationComments: Exam: FOOT LEFT 2 VWSAccession #: [id number] FOOT LEFT 2 VWS 04/29/2017 12:36 PM [...] purposes Electronically signed by:Cristal Ponce. Transcribed by: [email or web address], User Resident: Electronically Signed by: CRISTAL PONCE @ 04/29/2017 03:00 PM Normal [facility] HEMOGLOBIN A1Con 04-29-2017 Glucose mass conc 148 mg/dL High 70-126 [facility] Comment on above: Order Comment: No: Do not add to previou s draw Performed By: #### 8 5499 ####[facility] [place] [address], [facility] Hemoglobin A1c/Hemoglobin.t otal mass fraction (Bld) 6.8 % High 4.0-6.0 [facility] Comment on above: Order Comment: No: Do not add to previou s draw Performed By: #### 8 5499 ####[facility] [place] [address], [place] POC GLUCOSE LABon 04-29-2017 Glucose mass conc 345 mg/dL High 70-100 [facility] Comment on above: Performed By: #### 25205 ####[facility] [place] [address], [place] Glucose mass conc 218 mg/dL High 70-100 [facility] Comment on above: Performed By: #### 90851 ####[facility] [place] [address], [place] Glucose mass conc 174 mg/dL High 70-100 [facility] Comment on above: Performed By: #### 98239 ####[facility] [place] [address], [place] Glucose mass conc 133 mg/dL High 70-100 [facility] Comment on above: Performed By: #### 36599 ####[facility] [place] [address], [place] Glucose mass conc 121 mg/dL High 70-100 [facility] Comment on above: Performed By: #### 05723 ####[facility] [place] [address], [place] POC GLUCOSE LABon 04-28-2017 Glucose mass conc 198 mg/dL High 70-100 [facility] Comment on above: Performed By: #### 12079 ####[facility] [place] [address], [place] Glucose mass conc 203 mg/dL High 70-100 [facility] Comment on above: Performed By: #### 85750 ####[facility] [place] [address], [place] Glucose mass conc 214 mg/dL High 70-100 [facility] Comment on above: Performed By: #### 51631 ####[facility] [place] [address], [place] Glucose mass conc 110 mg/dL High 70-100 [facility] Comment on above: Performed By: #### 31816 ####[facility] [place] [address], [place] POC GLUCOSE LABon 04-27-2017 Glucose mass conc 314 mg/dL High 70-100 [facility] Comment on above: Performed By: #### 55965 ####[facility] [place] [address], [place] Glucose mass conc 214 mg/dL High 70-100 [facility] Comment on above: Performed By: #### 48245 ####[facility] [place] [address], [place] Glucose mass conc 201 mg/dL High 70-100 [facility] Comment on above: Performed By: #### 83910, 17810 ####[facility] [place] [address], [facility] Glucose mass conc 98 mg/dL Normal 70-100 [facility] Comment on above: Performed By: #### 18507, 54454 ####[facility] [place] [address], [facility] BASIC METABOLIC PANELon - Calcium 9.4 mg/dL Normal 8.6-10.3 [facility] Comment on above: Order Comment: No: Do not add to previou s draw Performed By: #### 5 610, 71742 ####[facility] [address], [facility] Chloride 103 mmol/L Normal 98-107 [facility] Comment on above: Order Comment: No: Do not add to previou s draw Performed By: #### 5 610, 96438 ####[facility] [place] [address], [facility] CO2 27 mmol/L Normal 21-31 [facility] Comment on above: Order Comment: No: Do not add to previou s draw Performed By: #### 5 610, 30991 ####[facility] [place] [address], [facility] Creatinine 1.96 mg/dL High 0.60-1.20 [facility] Comment on above: Order Comment: No: Do not add to previou s draw Performed By: #### 5 610, 53761 ####[facility] [place] [address], [facility] eGFR (black) 30 ml/min/1.73sq m Abnormal >60 [facility] Comment on above: Order Comment: No: Do not add to previou s draw Result Comment: Calc ulation may not be valid for patients over 70 years Performed By: #### 5 610, 04220 ####[facility] [place] [address], [facility] eGFR (non-black) 25 ml/min/1.73sq m Abnormal >60 [facility] Comment on above: Order Comment: No: Do not add to previou s draw Result Comment: Calc ulation may not be valid for patients over 70 years Performed By: #### 5 610, 02042 ####[facility] [place] [address], [facility] Glucose mass conc 153 mg/dL High 70-100 [facility] Comment on above: Order Comment: No: Do not add to previou s draw Performed By: #### 5 610, 49411 ####[facility] [place] [address], [facility] Potassium molar conc 4.0 mmol/L Normal 3.5-5.1 [facility] Comment on above: Order Comment: No: Do not add to previou s draw Performed By: #### 5 610, 17790 ####[facility] [place] [address], [facility] Sodium 140 mmol/L Normal 136-145 [facility] Comment on above: Order Comment: No: Do not add to previou s draw Performed By: #### 5 610, 90971 ####[facility] [place] [address], [facility] Urea nitrogen 53 mg/dL High 7-25 [facility] Comment on above: Order Comment: No: Do not add to previou s draw Performed By: #### 5 610, 14770 ####[facility] CBC COMPLETE BLOOD COUNTon 0 - Erythrocyte distribution width Auto Ratio (RBC) 13.5 % Normal 11.5-16.9 [facility] Comment on above: Order Comment: No: Do not add to previou s draw Performed By: #### 5 6100, 57475 ####[facility] Erythrocytes (RBC) 3.43 mill/mm3 Low 3.50-5.50 [facility] Comment on above: Order Comment: No: Do not add to previou s draw Performed By: #### 5 6100, 43905 ####[facility] Hematocrit (HCT) 30.2 % Low 36.0-48.0 [facility] Comment on above: Order Comment: No: Do not add to previou s draw Performed By: #### 5 6100, 34089 ####[facility] Hemoglobin mass conc (Bld) 9.9 g/dL Low 12.0-15.0 [facility] Comment on above: Order Comment: No: Do not add to previou s draw Performed By: #### 5 6100, 53062 ####[facility] MCH 28.9 pg Normal 24.0-32.0 [facility] Comment on above: Order Comment: No: Do not add to previou s draw Performed By: #### 5 6100, 08689 ####[facility] MCHC mass conc (RBC) 32.8 g/dL Normal 32.0-36.0 [facility] Comment on above: Order Comment: No: Do not add to previou s draw Performed By: #### 5 610, 06464 ####[facility] MCV 88.0 fL Normal 80.0-100.0 [facility] Comment on above: Order Comment: No: Do not add to previou s draw Performed By: #### 5 6101, 80835 ####[facility] [place] [address], [facility] PLAT CNT 353 Thou/mm3 Normal 100-400 [facility] Comment on above: Order Comment: No: Do not add to previou s draw Performed By: #### 5 6101, 88665 ####[facility] [place] [address], [facility] WBC (Leukocytes) 7.1 Thou/mm3 Normal 4.0-10.0 [facility] Comment on above: Order Comment: No: Do not add to previou s draw Performed By: #### 5 6101, 17329 ####[facility] [place] [address], [facility] POC GLUCOSE LABon 04-26-2017 Glucose mass conc 292 mg/dL High 70-100 [facility] Comment on above: Performed By: #### 86041, 37038 ####[facility] [address] [place] [address], [facility] Glucose mass conc 276 mg/dL High 70-100 [facility] Comment on above: Performed By: #### 73052, 87329 ####[facility] [address] [place] [address], [facility] Glucose mass conc 179 mg/dL High 70-100 [facility] Comment on above: Performed By: #### 03591, 69596 ####[facility] [place] [address], [facility] Glucose mass conc 156 mg/dL High 70-100 [facility] Comment on above: Performed By: #### 59244, 01066 ####[facility] [place] [address] [place] [address], [facility] BASIC METABOLIC PANELon 04-07 Calcium 9.4 mg/dL Normal 8.6-10.3 [facility] Comment on above: Order Comment: No: Do not add to previou s draw Performed By: #### 5 610, 97222 ####[facility] [place] [address], [facility] Chloride 105 mmol/L Normal 98-107 [facility] Comment on above: Order Comment: No: Do not add to previou s draw Performed By: #### 5 610, 20859 ####[facility] [place] [address], [place] CO2 30 mmol/L Normal 21-31 [facility] Comment on above: Order Comment: No: Do not add to previou s draw Performed By: #### 5 610, 95582 ####[facility] [place] [address], [facility] Creatinine 1.81 mg/dL High 0.60-1.20 [facility] Comment on above: Order Comment: No: Do not add to previou s draw Performed By: #### 5 610, 51350 ####[facility] [place] [address], [facility] eGFR (black) 33 ml/min/1.73sq m Abnormal >60 [facility] Comment on above: Order Comment: No: Do not add to previou s draw Result Comment: Calc ulation may not be valid for patients over 70 years Performed By: #### 5 610, 69576 ####[facility] [place] [address], [place] eGFR (non-black) 27 ml/min/1.73sq m Abnormal >60 [facility] Comment on above: Order Comment: No: Do not add to previou s draw Result Comment: Calc ulation may not be valid for patients over 70 years Performed By: #### 5 610, 10549 ####[facility] [place] [address], [facility] Glucose mass conc 80 mg/dL Normal 70-100 [facility] Comment on above: Order Comment: No: Do not add to previou s draw Performed By: #### 5 610, 91119 ####[facility] [place] [address], [facility] Potassium molar conc 4.1 mmol/L Normal 3.5-5.1 [facility] Comment on above: Order Comment: No: Do not add to previou s draw Performed By: #### 5 610, 08150 ####[facility] [place] [address], [facility] Sodium 143 mmol/L Normal 136-145 [facility] Comment on above: Order Comment: No: Do not add to previou s draw Performed By: #### 5 610, 77599 ####[facility] [place] [address], [facility] Urea nitrogen 53 mg/dL High 7-25 [facility] Comment on above: Order Comment: No: Do not add to previou s draw Performed By: #### 5 610, 93100 ####[facility] [place] [address], [facility] CBC COMPLETE BLOOD COUNTon 0 - Erythrocyte distribution width Auto Ratio (RBC) 13.7 % Normal 11.5-16.9 [facility] Comment on above: Order Comment: No: Do not add to previou s draw Performed By: #### 5 610, 69210 ####[facility] [place] [address], [place] Erythrocytes (RBC) 3.31 mill/mm3 Low 3.50-5.50 [facility] Comment on above: Order Comment: No: Do not add to previou s draw Performed By: #### 5 610, 19949 ####[facility] Hematocrit (HCT) 29.0 % Low 36.0-48.0 [facility] Comment on above: Order Comment: No: Do not add to previou s draw Performed By: #### 5 610, 73838 ####[facility] Hemoglobin mass conc (Bld) 9.6 g/dL Low 12.0-15.0 [facility] Comment on above: Order Comment: No: Do not add to previou s draw Performed By: #### 5 6100, 13209 ####[facility] MCH 29.1 pg Normal 24.0-32.0 [facility] Comment on above: Order Comment: No: Do not add to previou s draw Performed By: #### 5 6100, 95460 ####[facility] MCHC mass conc (RBC) 33.2 g/dL Normal 32.0-36.0 [facility] Comment on above: Order Comment: No: Do not add to previou s draw Performed By: #### 5 6100, 01933 ####[facility] MCV 87.6 fL Normal 80.0-100.0 [facility] Comment on above: Order Comment: No: Do not add to previou s draw Performed By: #### 5 6100, 81318 ####[facility] PLAT CNT 350 Thou/mm3 Normal 100-400 [facility] Comment on above: Order Comment: No: Do not add to previou s draw Performed By: #### 5 610, 14602 ####[facility] WBC (Leukocytes) 6.5 Thou/mm3 Normal 4.0-10.0 [facility] Comment on above: Order Comment: No: Do not add to previou s draw Performed By: #### 5 6101, 29591 ####[facility] [place] [address], [facility] POC GLUCOSE LABon 04-25-2017 Glucose mass conc 103 mg/dL High 70-100 [facility] Comment on above: Performed By: #### 75537, 64986 ####[facility] [address] [place] [address], [facility] Glucose mass conc 64 mg/dL Low 70-100 [facility] Comment on above: Performed By: #### 42724, 43936 ####[facility] [address] [place] [address], [facility] Glucose mass conc 211 mg/dL High 70-100 [facility] Comment on above: Performed By: #### 14887, 43255 ####[facility] [address] [place] [address], [facility] Glucose mass conc 89 mg/dL Normal 70-100 [facility] Comment on above: Performed By: #### 85932, 52315 ####[facility] [address] [place] [address], [facility] ALBUMIN BLOODon 04-24-2017 Albumin 3.5 g/dL Normal 3.5-5.7 [facility] Comment on above: Order Comment: No: Do not add to previou s draw Performed By: #### 5 6101, 50561 ####[address] [place] [address], [facility] POC GLUCOSE LABon 04-24-2017 Glucose mass conc 267 mg/dL High 70-100 [facility] Comment on above: Performed By: #### 59920, 02275 ####[facility] [place] [address] [place] [address], [facility] Glucose mass conc 140 mg/dL High 70-100 [facility] Comment on above: Performed By: #### 11758, 66884 ####[facility] [place] [address], [place] Glucose mass conc 130 mg/dL High 70-100 [facility] Comment on above: Performed By: #### 82859, 68454 ####[facility] [address] [place] [address], [place] Glucose mass conc 122 mg/dL High 70-100 [facility] Comment on above: Performed By: #### 44460, 16733 ####[facility] [address] [place] [address], [place] TRANSFERRINon 04-24-2017 Transferrin 177 mg/dL Low 203-362 [facility] Comment on above: Order Comment: No: Do not add to previou s draw Performed By: #### 5 6101, 81067 ####[facility] [place] [address], [facility] POC GLUCOSE LABon 04-23-2017 Glucose mass conc 212 mg/dL High 70-100 [facility] Comment on above: Performed By: #### 91644 ####[address] [place] [address], [place] Glucose mass conc 226 mg/dL High 70-100 [facility] [facility] Comment on above: Performed By: #### [id number] ####[facility] [place] [address], [place] Glucose mass conc 202 mg/dL High 70-100 [facility] Comment on above: Performed By: #### [id number] ####[place] [id number] [place] [address], [place] Glucose mass conc 200 mg/dL High 70-100 [facility] Comment on above: Performed By: #### [id number] ####[facility] APTTon 04-22-2017 aPTT 36.5 s High 25.0-35.0 [facility] Comment on above: Order Comment: No: [...] THIS PURPOSE. Performed By: #### [id number] ####[facility] [facility].[address] BASIC METABOLIC PANELon 04-06 Calcium 9.6 mg/dL Normal 8.6-10.3 [facility] Comment on above: Order Comment: No: Do not add to previou s draw Performed By: #### [id number] ####[facility] [facility].[address] Chloride 102 mmol/L Normal 98-107 [facility] Comment on above: Order Comment: No: Do not add to previou s draw Performed By: #### [id number] ####[facility] [facility].[address] CO2 27 mmol/L Normal 21-31 [facility] Comment on above: Order Comment: No: Do not add to previou s draw Performed By: #### [id number] ####[facility] [facility].[address] Creatinine 1.90 mg/dL High 0.60-1.20 [facility] Comment on above: Order Comment: No: Do not add to previou s draw Performed By: #### [id number] ####[facility] [place] [address], [facility] eGFR (black) 31 ml/min/1.73sq m Abnormal >60 [facility] Comment on above: Order Comment: No: Do not add to previou s draw Result Comment: Calc ulation may not be valid for patients over 70 years Performed By: #### [id number] ####[facility] [place] [address], [facility] eGFR (non-black) 26 ml/min/1.73sq m Abnormal >60 [facility] Comment on above: Order Comment: No: Do not add to previou s draw Result Comment: Calc ulation may not be valid for patients over 70 years Performed By: #### [id number] ####[facility] [place] [address], [facility] Glucose mass conc 122 mg/dL High 70-100 [facility] Comment on above: Order Comment: No: Do not add to previou s draw Performed By: #### 0 [id number] ####[facility] [facility] [place] [address], [facility] Potassium molar conc 3.9 mmol/L Normal 3.5-5.1 [facility] Comment on above: Order Comment: No: Do not add to previou s draw Performed By: #### 0 [id number] ####[facility] [facility] [place] [address], [facility] Sodium 137 mmol/L Normal 136-145 [facility] Comment on above: Order Comment: No: Do not add to previou s draw Performed By: #### 0 [id number] ####[facility] [place] [address], [facility] Urea nitrogen 64 mg/dL High 7-25 [facility] Comment on above: Order Comment: No: Do not add to previou s draw Performed By: #### 0 [id number] ####[facility] CBC COMPLETE BLOOD COUNTon 0 - Erythrocyte distribution width Auto Ratio (RBC) 13.3 % Normal 11.5-16.9 [facility] Comment on above: Order Comment: No: Do not add to previou s draw Performed By: #### [id number] ####[facility] Erythrocytes (RBC) 3.57 mill/mm3 Normal 3.50-5.50 [facility] Comment on above: Order Comment: No: Do not add to previou s draw Performed By: #### [id number] ####[facility] Hematocrit (HCT) 31.1 % Low 36.0-48.0 [facility] Comment on above: Order Comment: No: Do not add to previou s draw Performed By: #### [id number] ####[facility] Hemoglobin mass conc (Bld) 10.4 g/dL Low 12.0-15.0 [facility] Comment on above: Order Comment: No: Do not add to previou s draw Performed By: #### [id number] ####[facility] MCH 29.3 pg Normal 24.0-32.0 [facility] Comment on above: Order Comment: No: Do not add to previou s draw Performed By: #### [id number] ####[facility] [facility].[address] MCHC mass conc (RBC) 33.6 g/dL Normal 32.0-36.0 [facility] Comment on above: Order Comment: No: Do not add to previou s draw Performed By: #### [id number] ####[facility] MCV 87.1 fL Normal 80.0-100.0 [facility] Comment on above: Order Comment: No: Do not add to previou s draw Performed By: #### [id number] ####[facility] [place] [address], [facility] PLAT CNT 375 Thou/mm3 Normal 100-400 [facility] Comment on above: Order Comment: No: Do not add to previou s draw Performed By: #### [id number] ####[facility] [facility].[address] WBC (Leukocytes) 7.7 Thou/mm3 Normal 4.0-10.0 [facility] Comment on above: Order Comment: No: Do not add to previou s draw Performed By: #### [id number] ####[facility] [facility].[address] POC GLUCOSE LABon 04-22-2017 Glucose mass conc 128 mg/dL High 70-100 [facility] Comment on above: Performed By: #### [id number] ####[facility] [facility].[address] PROTHROMBIN TIMEon 8 INR Coag RelTime (PPP) 1.09 {INR} Normal 0.91-1.16 [facility] Comment on above: Order Comment: No: [...] OF ACTION, CLINICALEFFECTIVENESS, AND OPTIMAL THERAPEUTIC RANGE. [id number]. Performed By: #### [id number], [id number] ####[facility] [place] [address], [facility] Prothrombin time (PT) Coag time (PPP) 14.2 s Normal 12.3-14.8 [facility] Comment on above: Order Comment: No: Do not add to previou s draw Result Comment: ALL RESULTS MUST BE INTERPRETED WITH RESPECT TO BLOOD DRAWING ARTIFACTOR DILUTION ERROR OF ANTICOAGULANT AT THE TIME OF SAMPLING. Performed By: #### [id number], [id number] ####[facility] [place] [address], [facility] TYPE AND SCREENon 04-22-2017 ABO INTERPRETATION O Normal [facility] Comment on above: Performed By: #### [id number] ####[facility] [place] [address], [facility] ANTIBODY SCREEN Negative Normal [facility] Comment on above: Performed By: #### [id number] ####[facility] [place] [address], [place] RH INTERPRETATION Positive Normal [facility] Comment on above: Performed By: #### [id number] ####[facility] [place] [address], [place] Vital Signs Date Time Vital Sign Value Performing Clinician Facility 08-13-2022 14:45-0400 Body height 152.4 cm Micaela Prince Other [facility] Other 08-13-2022 14:45-0400 Body mass index (BMI) [Ratio] 33.47 kg/m2 Micaela Scally Other [facility] Other 08-13-2022 14:45-0400 Body weight 77.75 kg Micaela Scally Other [facility] Other 08-13-2022 14:45-0400 Diastolic blood pressure 67 mm[Hg] Micaela Scally Other [facility] Other 08-13-2022 14:45-0400 Respiratory rate 18 /min Micaela Scally Other [facility] Other 08-13-2022 14:45-0400 SaO2% (BldA) [Mass fraction] 96 % Micaela Scally Other [facility] Other 08-13-2022 14:45-0400 Systolic blood pressure 110 mm[Hg] Micaela Scally Other [facility] Other 06-18-2022 14:00-0400 Body height 152.4 cm Micaela Scally Other [facility] Other 06-18-2022 14:00-0400 Body mass index (BMI) [Ratio] 33.24 kg/m2 Micaela Scally Other [facility] Other 06-18-2022 14:00-0400 Body weight 77.2 kg Micaela Scally Other [facility] Other 06-18-2022 14:00-0400 Diastolic blood pressure 58 mm[Hg] Micaela Toshialy Other [facility] Other 06-18-2022 14:00-0400 Respiratory rate 18 /min Micaeladanilo Popely Other [facility] Other 06-18-2022 14:00-0400 SaO2% (BldA) [Mass fraction] 97 % Micaeladanilo Popely Other [facility] Other 06-18-2022 14:00-0400 Systolic blood pressure 111 mm[Hg] Micaela Toshialy Other [facility] Other 05-21-2022 14:00-0500 Body height 152.4 cm Micaela Prince Other [facility] Other Encounters Encounter Date Encounter Type Care Provider Facility Start: 09-15-2023 End: 09-15-2023 [facility] Start: 09-10-2023 End: 09-10-2023 ambulatory THERESA B WONDERLY Not Available Start: 09-04-2023 End: 09-04-2023 [place] [facility] Start: 08-19-2023 End: 08-19-[address] [facility] Start: 08-14-2023 End: 08-14-[address] [facility] Start: 08-13-2023 End: 08-13-2023 ambulatory THERESA B WONDERLY Not Available Start: 07-30-2023 End: 07-30-2023 ambulatory THERESA B WONDERLY Not Available Start: 07-23-2023 End: 07-23-2023 ambulatory THERESA B WONDERLY Not Available Start: 07-02-2023 End: 07-02-2023 ambulatory THERESA B WONDERLY Not Available Start: 06-30-2023 End: 06-30-[address] [facility] Start: 06-19-2023 End: 06-19-2023 ambulatory [address] Al[facility] Start: 06-18-2023 End: 06-18-2023 ambulatory THERESA Alas [facility] Not Available Start: 06-15-2023 End: 06-15-2023 ambulatory THERESA Alas [facility] Start: 06-05-2023 End: 06-05-2023 ambulatory [address]A Alas [facility] Start: 06-04-2023 End: 06-04-2023 ambulatory THERESA Alas [facility] Start: 06-01-2023 End: 06-01-2023 ambulatory THERESA Alas [facility] Start: 05-28-2023 End: 05-28-2023 ambulatory THERESA Alas WONDERGAV[facility] Not Available Start: 05-25-2023 End: 05-25-2023 ambulatory THERESA Alas [facility] Start: 05-20-2023 Clinisync Result Encounter Generic External Data Provider [facility] External Department Unsolicited Start: 05-20-2023 Clinisync Result Encounter Generic External Data Provider [facility] External Department Unsolicited Start: 05-20-2023 End: 05-20-2023 ambulatory THERESA Alas [facility] Start: 05-13-2023 External Result Encounter Theresa Valles MD Work Phone: [facility] External Department Unsolicited Start: 05-13-2023 External Result Encounter Theresa Valles MD Work Phone: [facility] External [facility] Unsolicited Start: 05-13-2023 Orders Only Theresa butler MD Work Phone: [facility]FACE[facility]ONLY [facility] Comment on above: Chronic kidney disea se, stage 4 (severe) ([facility]-HCC) Start: 05-13-2023 End: 05-13-2023 amb[facility] Start: 05-07-2023 Bamboo flowsheet Theresa eller MD Work Phone: [facility] Start: 05-07-2023 Bamboo felton eller MD Work Phone: [facility] Start: 05-07-2023 End: 05-07-2023 ambulatory THERESA VALLES Not Available Start: 05-04-2023 End: 05-04-2023 ambulatory [facility] Librado TREVINO [facility] Start: 04-28-2023 End: 04-28-2023 ambulatory [facility] Start: 04-27-2023 End: 04-27-2023 ambulatory [facility] Start: 04-20-2023 End: 04-20-2023 ambulatory [facility] Start: 04-13-2023 End: 04-13-2023 ambulatory [facility] Start: 04-08-2023 End: 04-08-2023 ambulatory [facility] Start: 04-07-2023 End: 04-07-2023 ambulatory [facility] Start: 03-31-2023 Telephone encounter Micaela patel [facility] Start: 03-31-2023 End: 03-31-2023 ambulatory EFRAIN TREVINO [facility] Other Start: 03-23-2023 End: 03-23-2023 [facility]ulatory [facility] Start: 02-20-2023 Orders Only Prince Trujillo MD Work Phone: Cardiology Comment on above: S/P MVR (mitral valv e replacement) (Primary Dx) Start: 11-05-2022 End: 11-05-2022 ambulatory Micaela Prince Other [facility] Other Start: 11-05-2022 Telephone encounter Micaela patel [facility] Start: 10-20-2022 End: 10-20-2022 ambulatory Micaela Prince Other [facility] Other Start: 10-20-2022 Telephone encounter Micaela patel [facility] Start: 08-13-2022 (DM) Diabetes Micaela Hilllan ds [facility] Start: 08-13-2022 End: 08-14-2022 ambulatory Theresa Valles [facility] Other Start: 07-30-2022 Orders Only Prince Trujillo MD Work Phone: Cardiology Comment on above: Mixed hyperlipidemia (Primary Dx) Hx of mitral valve r eplacement (Primary Dx) Start: 06-20-2022 End: 06-20-2022 ambulatory Micaela Prince Other [facility] Other Start: 06-20-2022 Telephone encounter Micaela patel [facility] Start: 06-18-2022 (DM) Diabetes Micaela Tipton ds [facility] Start: 06-18-2022 End: 06-18-2022 ambulatory Micaela Prince Other [facility] Other Start: 05-21-2022 End: 05-21-2022 ambulatory Micaela Prince Other [facility] Other Start: 05-21-2022 Diabetic care education Micaela Dhillon [facility] Start: 10-16-2021 End: 10-16-2021 Subsequent hospital visit by physician Xr Chest Main J1 Work Phone: Radiology Comment on above: 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] Start: 04-15-2021 End: 04-15-2021 ambulatory CHARLEY QUINTERO Facility:[facility] Start: 09-15-2020 End: 09-15-[address] THERESA VALLES Facility:[facility] Start: 09-08-2020 End: 09-08-[address] THERESA VALLES Facility:[facility] Start: 06-04-2017 End: 06-05-2017 Ambulatory FELIPE NINO Facility:[facility] Start: 04-22-2017 End: 05-01-2017 Evaluation and management of inpatient STANFORD SINGH Facility:[facility] Procedures Date Procedure Procedure Detail Performing Clinician Start: 05-20-2023 [facility] CULTURE URINE Gener ic External Data Provider Start: 05-13-2023 Albumin serum plasma/whole blood Theresa [...] Td Vaccines (3 - Td or Tdap) [facility] Start: 06-24-2028 Urine microalbumin profile [facility] Start: 06-17-2023 Glaucoma screening Diabetes: R etinopathy Screening [facility] Start: 05-13-2023 End: 05-13-2024 Comprehensive metabolic 2000 panel - Serum or Plasma Comprehensive metabolic panel Lab Routine Chronic kidney disease, stage 4 (severe) (CMS-HCC) Expected: 05/13/2023, Expires: 05/13/2024 [employer] Work Phone: Comment on above: Expected: 05/13/2023 , Expires: 05/13/2024 Start: 05-07-2023 End: 05-07-2023 Patient encounter procedure 05/07/2023 2:00 PM EST Office Visit [facility] [address] [facility] [place] [address] Theresa Valles MD [address] [place] [address] Type 2 diabetes mellitus with stage 4 chronic kidney disease, with long-term current use of insulin (CMS/[facility]); Chronic kidney disease, stage 3b (N18.32); Acquired [...] (severe) (N18.4); Atrial flutter, unspecified type (CMS/HCC) [facility] Comment on above: Type 2 diabetes nata [...] gangrene, with long-term current use of insulin ([facility]); Chronic respiratory failure with hypoxia (J96.11); Chronic kidney disease, stage 4 (severe) (N18.4); Atrial flutter, unspecified type ([facility]/HCC) Start: 03-31-2023 Hemoglobin A1c/Hemoglobin.total in Blood HbA1C [facility] Start: 03-03-2023 Adult BMI Screening Adult BMI Screen [facility] Start: 02-20-2023 End: 05-22-2023 Basic metabolic 2000 panel - Serum or Plasma BASIC METABOLIC PNL Lab Routine S/P MVR (mitral valve replacement) Expected: 02/20/2023, Expires: 05/22/2023 [facility] Work Phone: Comment on above: Expected: 02/20/2023 , Expires: 05/22/2023 Start: 12-30-2022 Hemoglobin A1c measurement Diabetes: Hemoglobin A1C [facility] Start: 12-19-2022 End: 12-27-2022 Basic metabolic 2000 panel - Serum or Plasma BASIC METABOLIC PNL Lab Routine Hx of mitral valve replacement Expected: 12/19/2022, Expires: 12/27/2022 [facility] Work Phone: Comment on above: Expected: 12/19/2022 , Expires: 12/27/2022 Start: 12-05-2022 Covid-19 Vaccine () Covid-19 Vaccine () [facility] Start: 12-05-2022 Influenza vaccination C [facility] Start: 10-16-2022 BP CONTROLLED (<130/80) BP CONTROLLE D (<130/80) [facility] Start: 10-16-2022 HEMOGLOBIN/HEMATOCRIT HEMOGLOBIN/HEM ATOCRIT [facility] Start: 10-16-2022 Hepatitis B surface antibody level LDL CHOLESTEROL [facility] Start: 10-16-2022 SERUM CREATININE SERUM CREATININE [facility] Start: 07-30-2022 End: 09-29-2022 CBC panel - Blood by Automated count CBC Lab Routine Mixed hyperlipidemia Expected: 07/30/2022, Expires: 09/29/2022 [facility] Work Phone: Comment on above: Expected: 07/30/2022 , Expires: 09/29/2022 Start: 07-30-2022 End: 09-29-2022 Lipid 1996 panel - Serum or Plasma LIPID PANEL BASIC Lab Routine Mixed hyperlipidemia Expected: 07/30/2022, Expires: 09/29/2022 [facility] Work Phone: Comment on above: Expected: 07/30/2022 , Expires: 09/29/2022 Start: 2022 Tobacco Screening Tobacco Screening [facility] Start: 04-06-2022 ADVANCE DIRECTIVE DISCUSSION ADVANCE DIRECTIVE DISCUSSION [facility] Start: 04-06-2022 DEPRESSION ASSESSMENT DEPRESSION ASS ESSMENT [facility] Start: 12-05-2021 Influenza vaccination INFLUENZA (#1) [facility] Start: 10-30-2021 Hemoglobin A1c/Hemoglobin.total in Blood HBA1C [facility] Start: 04-06-2021 ADVANCE DIRECTIVE DISCUSSION ADVANCE DIRECTIVE DISCUSSION [facility] Start: 02-01-2021 Medicare Annual Well ness (AWV) Medicare Annual Wellness (AWV) [facility] Start: 10-29-2020 COVID-19 VACCINE (3 - Booster for Moderna series) COVID-19 VACCINE (3 - Booster for Moderna series) [facility] Start: 07-27-2020 COVID-19 VACCINE (3 - Booster for Moderna series) COVID-19 VACCINE (3 - Booster for Moderna series) [facility] Start: 11-08-2012 Administration of varicella zoster vaccine Zoster (Shingles) Vaccine (2 of 3) [facility] Start: 11-08-2012 Shingrix Vaccine (2 of 3) Shingrix Vaccine (2 of 3) [facility] Start: 2009 BONE DENSITY BONE DENSITY [facility] Start: 2009 Bone Density Screening Bone Density Screening [facility] Start: 2009 Fall Risk Screening Fall Risk Screen ing [facility] Start: 2004 Hepatitis B Vaccine (1 of 3 - Risk 3-dose series) Hepatitis B Vaccine (1 of 3 - Risk 3-dose series) [facility] Start: 2004 RSV Vaccine (1 - 1-d ose 60+ series) RSV Vaccine (1 - 1-dose 60+ series) [facility] Start: 1994 SHINGRIX VACCINE (1 of 2) SHINGRIX VACCINE (1 of 2) [facility] Start: 1962 ANNUAL PCP TEAM KEY HOLDER ART DISEASE VISIT ANNUAL PCP TEAM CHRONIC DISEASE VISIT [facility] Start: 1962 BP Controlled (<130/80) BP Controlle d (<130/80) [facility] Start: 1962 HEPATITIS C SCREENING HEPATITIS C SC REENING [facility] Start: 1956 Adult depression screening assessment DEPRESSION SCREENING [facility] Start: 1954 3 comp foot exam completed DIABETIC FOOT EXAM [facility] Start: 1954 Hepatitis C antibody , confirmatory test DILATED RETINAL EXAM [facility] Start: 1944 Medicare Annual Well ness (AWV) Medicare Annual Wellness (AWV) [facility] Start: 1944 Medicare Annual Well ness Visit Medicare Annual Wellness Visit [facility] End: 02-21-2024 ECG COMPLETE ECG COMPLETE ECG Routine S/P MVR (mitral valve replacement) 1 Occurrences starting 02/20/2023 until 02/21/2024 [facility] Work Phone: Comment on above: 1 Occurrences starti ng 02/20/2023 until 02/21/2024 [facility] CULTURE URINE [facility] CULTURE UR INE Lab Routine 05/20/2023 1:25 PM EST [facility] Immunizations Immunization Date Immunization Notes Care Provider Isabela prietoemily 03-14-2022 Influenza, High-dose Seasonal, Quadrivalent, Preservative Free Theresa Valles MD Work Phone: [facility] 03-14-2022 influenza virus vacc ine, unspecified formulation Theresa Valles MD Work Phone: [facility] 01-30-2021 Influenza, High-dose Seasonal, Quadrivalent, Preservative Free Theresa Valles MD Work Phone: [facility] 01-30-2021 influenza virus vacc ine, unspecified formulation Prince Trujillo MD Work Phone: [facility] 06-01-2020 COVID-19 vaccine, fu ll dose (MODERNA) Xr J1 Work Phone: [facility] Work Phone: 05-04-2020 COVID-19 vaccine, fu ll dose (MODERNA) Xr J1 Work Phone: [facility] Work Phone: 02-02-2020 influenza, high dose seasonal, preservative-free Xr J1 Work Phone: [facility] Work Phone: 02-02-2020 Influenza, High-dose Seasonal, Quadrivalent, Preservative Free Theresa Valles MD Work Phone: [facility] 01-25-2019 influenza, injectabl e, quadrivalent, preservative free Xr J1 Work Phone: [facility] 01-17-2019 pneumococcal polysaccharide vaccine, 23 valent Xr J1 Work Phone: [facility] Work Phone: 06-24-2018 tetanus toxoid, redu marleni diphtheria toxoid, and acellular pertussis vaccine, adsorbed Xr J1 Work Phone: [facility] 01-29-2018 influenza, injectabl e, quadrivalent, preservative free Xr J1 Work Phone: [facility] 10-29-2017 tetanus toxoid, redu marleni diphtheria toxoid, and acellular pertussis vaccine, adsorbed Xr J1 Work Phone: [facility] 02-03-2017 influenza, injectabl e, quadrivalent, preservative free Xr J1 Work Phone: [facility] 01-16-2016 influenza, high dose seasonal, preservative-free Xr J1 Work Phone: [facility] Work Phone: 01-16-2015 influenza, high dose seasonal, preservative-free Theresa Valles MD Work Phone: [facility] 01-18-2014 influenza, high dose seasonal, preservative-free Theresa Valles MD Work Phone: [facility] 12-17-2012 pneumococcal conjuga te vaccine, 13 valent Xr J1 Work Phone: [facility] Work Phone: 09-13-2012 zoster vaccine, live Theresa bermudez MD Work Phone: [facility] 09-13-2012 zoster vaccine, unspecified formulation Theresa Valles MD Work Phone: [facility] 01-16-2010 influenza virus vacc ine, whole virus Xr J1 Work Phone: [facility] 01-10-2009 influenza virus vacc ine, whole virus Xr J1 Work Phone: [facility] 01-05-2008 pneumococcal polysaccharide vaccine, 23 valent Theresa Valles MD Work Phone: [facility] 01-19-2007 influenza virus vacc ine, whole virus Xr J1 Work Phone: [facility] Payers Date Payer Category Payer Unknown [id number] 2022 Medicare [id number] 2022 Self-pay [id number] 2019 Unknown MMO MMO MEDICARE SUPPLEMENT [id number] 2019-Present [phone] [address] [place] [address] Indemnity [id number] [id number].3. [id number] 2015 Unknown [id number]. 1.13.159.2.7.3. [id number] 2009 Medicare MEDICARE MEDICAR E A AND B [id number] 2009-Present [phone] [address] [address] [place] [address] Medicare [id number] 1.2.840.593646.1.13.159.2.7.3. 509888.315 2009 Medicare 1.2.840.727514. 1.13.159.2.7.3. 595209.315 1959 Medicare [id number] 1959 Unknown [id number] 1944 Unknown [id number] .16.840.1.762014.3.579.2.593 1944 Unknown [id number] 2.16.840.1.938096.3.579.2.593 1944 Unknown [id number] 2.16.840.1.224046.3.579.2.593 1944 Unknown [id number] 2.16.840.1.740914.3.579.2.1259 1944 Unknown [id number] 2.16.840.1.549783.3.579.2.1259 1944 Unknown [id number] 2.16.840.1.650738.3.579.2.1259 1944 Unknown [id number] 2.16.840.1.521064.3.579.2.1258 1944 Unknown [id number] 2.16840.1.125609.3.579.2.1258 1944 Unknown [id number] 2.840.1.403197.3.579.2.1258 1944 Unknown [id number] 2.840.1.280318.3.579.2.1258 1944 Unknown [id number] 2.840.1.531970.3.579.2.1258 1944 Unknown [id number] 2.840.1.996053.3.579.2.1285 1944 Unknown [id number] 2.840.1.814949.3.579.2.1285 1944 Unknown [id number] 2.840.1.574250.3.579.2.1285 1944 Unknown [id number] 2.840.1.740929.3.579.2.1285 1944 Unknown [id number] 2.840.1.438262.3.579.2.1285 1944 Unknown [id number] 2.840.1.671550.3.579.2.1285 1944 Unknown [id number] 2.840.1.372315.3.579.2.1285 1944 Unknown [id number] 2.840.1.879727.3.579.2.1285 1944 Unknown [id number] .840.1.512217.3.579.2.1285 1944 Unknown [id number] 2.840.1.956673.3.579.2.1285 1944 Unknown [id number] 2.840.1.947485.3.579.2.1285 1944 Unknown [id number] 2.16.840.1.696982.3.579.2.1285 1944 Unknown [id number] 2.16.840.1.426374.3.579.2.1285 1944 Unknown [id number] 2.16.840.1.048674.3.579.2.1285 1944 Unknown [id number] 2.16.840.1.862849.3.579.2.1285 1944 Unknown [id number] 2.16.840.1.081673.3.579.2.1285 1944 Unknown [id number] 2.16.840.1.619793.3.579.2.1285 1944 Unknown [id number] 2.16.840.1.023122.3.579.2.1285 1944 Unknown [id number] 2.16840.1.276237.3.579.2.1285 1944 Unknown [id number] 2.16.840.1.356863.3.579.2.1285 1944 Unknown [id number] 2.16.840.1.409239.3.579.2.1285 1944 Unknown [id number] 2.16.840.1.009782.3.579.2.1285 1944 Unknown [id number] 2.16840.1.079925.3.579.2.[facility] Medicare [id number] Unknown [id number] 2.16.840.1.197966.3.579.2.531 Social History Date Type Detail Facility Start: 07-06-2020 End: 08-28-2022 Tobacco smoking status NHIS Never smoked tobacco [facility] Start: 04-22-2017 End: 07-06-2020 Tobacco use and exposure Smokeless tobacco non-user [facility] Start: 10-16-2021 End: 05-07-2023 Alcohol intake Lifetime non-drinker (finding) [facility] Start: 07-06-2020 History SDOH Alcohol Frequency 1 [facility] Start: 1945 Sex Assigned At Not on file [facility] Start: 10-06-2021 End: 10-16-2021 Exposure to SARS-CoV-2 (event) Not sure [facility] Start: 07-06-2020 End: 09-24-2022 Sex Assigned At [facility] Start: 07-06-2020 End: 09-24-2022 History of Social function [facility] How often to you hav e a drink containing alcohol? Never [facility] Average Number of Drinks Not on file [facility] Start: 08-28-2022 Tobacco use and exposure Former smokeless tobacco user [facility] Within the last year , have you been afraid of your partner or ex-partner? No [facility] Are you now , , , , never or living with a partner? [facility] Do you feel stress - tense, restless, nervous, or anxious, or unable to sleep at night because your mind is troubled all the time - these days [OSQ] Not at all [facility] (I/We) worried wheth er (my/our) food would run out before (I/we) got money to buy more. Never true [facility] Start: 06-18-2022 Gender identity Identifies as female gender (finding) [facility] Start: 03-03-2022 Alcohol intake Current drinke r of alcohol (finding) [facility] Start: 1945 Sex Assigned At Female F [facility] Medical Equipment Procedure Code Equipment Code Equipment Origin al Text Equipment Identifier Dates Ring Rodriguez Mc3 28mm Titanium Silicone Rubber Polyester Annuloplasty 1 - [id number] Start: 07-31-2020 Valve Biocor Fle xfit 29mm 27mm Porcine Pericardial 19mm Mitral - [id number] Start: 07-31-2020 [place] 31G X 8 MM Clinical Notes 08-02-2020 to 10-20-2022 Note Date & Type Note Facility 10-20-2022 Evaluation note Encounter Date Diagnosis Assessment Notes Oct, Type 2 diabetes mellitus with hyperglycemia (ICD-10 - E11.65) [facility] Other 05-10-2023 Evaluation note* Encounter Date Diagnosis Assessment Notes [...] early September. They will sit down with perinatal educator for a download and review of [...] hyperglycemia, or diabetes medication issues. 6. Prescriptions: [facility] pharmacy/[place]. August, Vitamin D deficiency (ICD-10 - E55.9) [...] Instructions material was published to portal August, skilled nursing current use of insulin (ICD-10 - Z79.4) August, BMI 33.0-33.9,adult (ICD-10 - Z68.33) May benefit from GLP-1 RA, will substantiate diabetes type diagnosis first August, Other I have spent 30 minutes with this patient and over 50% of the visit was counseling done by myself, Italia RAMIRES. [facility] Other 03-15-2023 Evaluation note* Encounter Date Diagnosis [...] hyperglycemia, or diabetes medication issues. 6. Prescriptions: [facility] pharmacy/[place]. Jun, Vitamin D deficiency (ICD-10 - E55.9) [...] Instructions material was published to portal Jun, skilled nursing current use of insulin (ICD-10 - Z79.4) Jun, BMI 33.0-33.9,adult (ICD-10 - Z68.33) May benefit from GLP-1 RA, will substantiate diabetes type diagnosis first Jun, Other I have spent 40 minutes with this patient and over 50% of the visit was counseling done by myself, Italia RAMIRES. [facility] Other 02-15-2023 Evaluation note* Encounter Date Diagnosis Assessment Notes Treatment Notes Treatment Clinical Notes May, Type 2 diabetes mellitus with hyperglycemia (ICD-10 - E11.65) Patient in today with her for review of blood glucose logs, food logs, and insulin dosing. Patient's appointment scheduled for Tania download, but pt reports she never received a call from [facility] to picker / packer Tania. RN called [facility] pharmacy, staff states medical records are needed prior to coverage determination. Informed pharmacy office was not notified of medical record request. Medical records were sent to fax # [phone]. Pharmacy states determination could take up to [...] spent on education by Stephani KHOURY, RN [facility] Other 07-13-2022 NoteHNO ID: [id number] Author: Prince Trujillo MD Service: ? Author Type: Physician Type: Progress Notes Filed: 10/16/2021 10:16 PM Note Text: [facility] [place] Diane Fuller Department of Cardiovascular Medicine SECTION OF CARDIOVASCULAR IMAGING OUTPATIENT VISIT DATE October 16, 2021 OUTPATIENT VISIT TYPE Established PRIMARY CARE PHYSICIAN: Theresa Valles MD ([facility]) [address] [place] [address] REFERRING PHYSICIAN: Theresa Valles MD ([facility]) [address] [facility] [address] CHIEF COMPLAINT: Follow-up. Subjective HISTORY OF PRESENT [...] kidney disease) stage 4, GFR 15-29 ml/min ([facility]) - Depression - Diabetes mellitus (HCC) type 2 - Diverticulosis - HLD (hyperlipidemia) - HTN (hypertension) - Mitral valve regurgitation moderate to severe per OSH Echo on 06/04/2020 - Morbid obesity (HCC) - Osteoarthritis - Osteomyelitis (HCC) - PAD (peripheral artery disease) ([facility]) - Spinal stenosis - Tricuspid valve [...] Extremities: No significant peripheral (more content not included)...[facility]07-13-2022 NoteHNO ID: [id number] Author: RT Dinah(Fredi) Service: ? Author Type: [...] IV DATA: Not applicable SIGNED BY: RT Dinah(Fredi) October 16, 2021 2:25 [facility]07-13-2022 History of Present illness Narrative* DAIANA Nix) - 10/16/2021 2:30 PM EDT Radiology Service [...] 16, 2021 2:25 PM [facility] History of Past illness Narrative* Problem [...] questions answered.Jon Charles MD, FASN - Pager [phone] July 25, 2020 @ 12:23 PM PULMONARY [...] 4:48 PM Edenilson Nino APRN.BERNADINE Ortiz RN APRN.BERNADINE CHECKED BY: KATIE 07/25/20 Pulmonary hypertension 07/06/2020 Overview: August 03, 2020 See coordination of care note Restrictive lung disease 021 Overview: August 03, 2020 See coordination of care note documented as of this encounter (statuses as of 10/17/2021) [facility]04-29-2021 History of Past illness Narrative* Problem [...] questions answered.Jon Charles MD, FASN - Pager [phone] July 25, 2020 @ 12:23 PM PULMONARY [...] Cardiac Surgical prep: Yes SIGNATURE: Adela Espino APRN.BODY DESIGNER DATE of SERVICE: 07/18/2020 TIME of SERVICE: 4:48 PM Edenilson Nino APRN.BERNADINE Ortiz RN DIE STORAGE CLERK.BODY DESIGNER CHECKED BY: KATIE 07/25/20 Pulmonary hypertension 07/06/2020 Overview: August 03, 2020 See coordination of care note Restrictive lung disease 021 Overview: August 03, 2020 See coordination of care note documented as of this encounter (statuses as of 07/30/2022) [facility]04-29-2021 History of Past illness Narrative* Problem [...] questions answered.Jon Charles MD, FASN - Pager [phone] July 25, 2020 @ 12:23 PM PULMONARY [...] SERVICE: 07/18/2020 TIME of SERVICE: 4:48 PM HSARAD Davis RN APRN.BODY DESIGNER CHECKED BY: KATIE 07/25/20 Pulmonary hypertension 07/06/202008/05 Overview: August 03, 2020 See coordination of care note Restrictive lung disease Overview: August 03, 2020 See coordination of care note documented as of this encounter (statuses as of 02/20/2023) [facility] note* Diagnosis Coronary artery disease involving [place] coronary artery of [place] heart without angina pectoris Nonrheumatic aortic valve insufficiency Aortic valve disorders documented in this encounter [facility] noteNo InformationNortwiseri Other Evaluation note* Diagnosis Mixed hyperlipidemia- Primary documented in this encounter [facility] note* Diagnosis Hx of mitral valve replacement- Primary Heart valve replaced by other means documented in this encounter [facility] note* Diagnosis S/P MVR (mitral valve replacement)- Primary Heart valve replaced by other means documented in this encounter [facility] note* Diagnosis Chronic kidney disease, stage 4 (severe) (CMS-HCC) documented in this encounter [facility] System[facility] noteNo assessment information available [facility] Work Phone: History general Narrative - Reported* Type Description Date [...] History amputation, toe Hospitalization History See Above [facility] Other InstructionsNot on filedocumented in this encounter [facility] Outpatient Procedure (Routine) - Authorized Specialty Diagnoses / Procedures Referred By Contac t Referred [facility] Diagnoses S/P MVR (mitral valve replacement) Procedures ECG COMPLETE ECG ROUTINE ECG W/LEAST 12 LDS W/I&R Prince Trujillo MD [address] [place] [address] [facility] [id number] [place] [address] Referral ID Status Reason Start Date Expiration Date Visits Requested Visits Authorized [id number] Authorized Auto-Generat ed Referral 3 02/20/2024 1 1 [facility] for visit NarrativeDM, Referral Charley Quintero [facility] Visit Codes, [facility] Visit Codes, TKM 2 IDDMNort [facility] Other Reason for visit NarrativeDM, Referral Charley Diamond [employer] Other Summary Purpose Family History No Family History Records Found Relationship Condition Age at Onset Recorded Date/T kirt father Heart disease Unknown Diabetes mellitus Unknown Unknown Not Specified Unknown Advance Directives No Advanced Directives Records FoundDocuments on File Type Date Recorded Patient 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 Expl anation Advance Directive(s) 07/07/2020 10:51 AM Additional Source Comments INFORMATION SOURCE (unrecogn ized section and content) DATE CREATED AUTHOR 09/25/2017 [facility] DATE CREATED AUTHOR AUTHOR'S ORGANIZ ATION 04/19/2021 [facility] dical Specialist DATE CREATED AUTHOR AUTHOR'S ORGANIZ ATION 04/19/2021 [facility] DATE CREATED AUTHOR AUTHOR'S ORGANIZ ATION 05/30/2021 [facility] DATE CREATED AUTHOR AUTHOR'S ORGANIZ ATION 11/09/2021 [facility] DATE CREATED AUTHOR AUTHOR'S ORGANIZ ATION 05/26/2023 [facility] DATE CREATED AUTHOR AUTHOR'S ORGANIZ ATION 09/11/2023 [facility] dical Specialists EPIC DATE CREATED AUTHOR AUTHOR'S KRISTY HAMEED 09/16/2023 [facility] Source Comments (unrecognize d section and content) In the event this informatio n is protected by the Federal Confidentiality of Alcohol and Drug Abuse Patient Records regulations: The Federal rules restrict any use of the information to criminally investigate or prosecute any alcohol or drug abuse patient.[facility] the event this information is protected by the Federal Confidentiality of Alcohol and Drug Abuse Patient Records regulations: The Federal rules restrict any use of the information to criminally investigate or prosecute any alcohol or drug abuse patient.[facility] the event this information is protected by the Federal Confidentiality of Alcohol and Drug Abuse Patient Records regulations: The Federal rules restrict any use of the information to criminally investigate or prosecute any alcohol or drug abuse patient.[facility] the event this information is protected by the Federal Confidentiality of Alcohol and Drug Abuse Patient Records regulations: The Federal rules restrict any use of the information to criminally investigate or prosecute any alcohol or drug abuse patient.[facility] Reason for Visit (unrecogniz ed section and content) Reason Comments [facility] Main J1 Care Teams (unrecognized sec tion and content) Green Inspector Relationship Specialty Start Date End Date Theresa Valles MD [address] [place] [address] PCP - General Family Practice 07/07/20 Sharon Mccracken APRN.BODY DESIGNER [address] [place] [address] Primary Service Vascular Medicine 09/27/20 Green Inspector Relationship Specialty Start Date End Date Theresa Valles MD [address] [place] [address] PCP - General Family Medicine 07/07/20 Sharon Mccracken, BERNARD.BODY DESIGNER [address] [place] [address] Primary Service Vascular Medicine 09/27/20 Green Inspector Relationship Specialty Start Date End Date Theresa Valles MD [address] [place] [address] PCP - General Family Medicine 07/07/20 Sharon Mccracken, BERNARD.BODY DESIGNER [address] [place] [address] Primary Service Vascular Medicine 09/27/20 Green Inspector Relationship Specialty Start Date End Date Theresa Valles MD [address] [place] [address] PCP - General Family Medicine 07/07/20 Sharon Mccracken APRN.BODY DESIGNER [address] [place] [address] Primary Service Vascular Medicine 09/27/20 Green Inspector Relationship Specialty Start Date End Date Theresa Valles MD [address] [place] [address] PCP - General Family Medicine 08/26/22 Theresa Valles MD [address] [facility] [place] [address] PCP - ACO Reach 08/28/22 Green Inspector Relationship Specialty Start Date End Date Theresa Valles MD [address] [place] [address] PCP - General Family Medicine 09/10/16 Green Inspector Relationship Specialty Start Date End Date Theresa Valles MD [address] [facility] [place] [address] PCP - General Family Medicine 08/26/22 Theresa Valles MD [address] [facility] [place] [address] PCP - ACO Reach 08/28/22 Goals (unrecognized section and content) Goals may be documented in a n alternate section FOR RECORDS PERTAINING TO PATIENTS WHO ARE [...] BE BASED ON THE PRIMARY CLINICAL RECORDS. [email or web address] [facility]. provides no warranty or guarantee of the accuracy or completeness of information in this document.
[2023-09-17 20:36] LABS: Basophils Absolute Auto 0.1 10^3/uL (0.0-0.1); Eosinophils Absolute Auto 0.1 10^3/uL (0.0-0.7); Eosinophils Percent Auto 1.2 % (0.9-7.0); Hematocrit 31.7 % (36.0-48.0); Hemoglobin 9.7 g/dL (12.0-16.0); Immature Granulocytes Abs Auto 0.03 10^3/uL (0.00-0.03); Immature Granulocytes Pct Auto 0.4 % (0.0-0.5); Lymphocytes Absolute Auto 0.8 10^3/uL (1.2-3.8); Lymphocytes Percent Auto 9.9 % (20.5-60.0); Mean Corpuscular HGB Conc 30.6 g/dL (29.9-35.2); Mean Corpuscular Hemoglobin 29.2 pg (26.7-34.0); Mean Corpuscular Volume 95.5 fL (81.0-99.0); Monocytes Absolute Auto 0.5 10^3/uL (0.3-0.8); Monocytes Percent Auto 6.5 % (1.7-12.0); Neutrophils Absolute Auto 6.7 10^3/uL (1.4-6.5); Platelet Count 341 10^3/uL (150-450); Red Blood Count 3.32 10^6/uL (4.20-5.40); Red Cell Distribution Width 17.9 % (11.0-15.0); White Blood Count 8.3 10^3/uL (4.0-11.0)
[2023-09-17 20:46] LABS: INR 1.01; Prothrombin Time 10.7 sec (9.0-11.6)
[2023-09-17 20:51] LABS: Lactate/Lactic Acid 0.8 mmol/L (0.4-2.0)
[2023-09-17 20:52] LABS: Anion Gap 10.4; BUN Creatinine Ratio 30.9; Carbon Dioxide 28.2 mmol/L (21.0-32.0); Chloride 104 mmol/L (98-107); Estimated GFR (African America >60 (>=60); Estimated GFR (Non-African Ame 57 (>=60); Glucose 225 mg/dL (74-106); Potassium 4.6 mmol/L (3.5-5.1); Sodium 138 mmol/L (136-145); Troponin I High Sensitivity 18.6 pg/mL (4.0-51.3)
[2023-09-17 22:15] VITALS: BP 169/90; PULSE 97; O2SAT 94
[2023-09-17 22:38] LABS: Bilirubin Urine NEGATIVE (NEGATIVE); Blood Urine TRACE-I (NEGATIVE); Clarity Urine CLEAR (CLEAR); Color Urine LT. YELLOW (YELLOW); Glucose Urine UA NEGATIVE (NEGATIVE); Ketones Urine NEGATIVE (NEGATIVE); Leukocyte Esterase Urine NEGATIVE (NEGATIVE); Nitrite Urine NEGATIVE (NEGATIVE); Protein Urine 100 mg/dL (NEG/TRACE); Specific Gravity Urine 1.015 (1.005-1.025); Urobilinogen Urine 0.2 EU/dL (0.2-1.0)
[2023-09-17 22:39] LABS: Urine Microscopic Indicated YES
[2023-09-17 22:46] LABS: WBC Urine 0-2 #/HPF (NONE SEEN)
[2023-09-17 22:47] LABS: Amorphous Sediment Urine RARE; Bacteria Urine NONE SEEN #/HPF (NONE SEEN); Cast Seen? SEEN #/LPF (NONE SEEN); Crystals Seen? None Seen #/HPF (None Seen); Hyaline Casts Urine FEW; Mucus Urine TRACE (NONE SEEN); RBC Urine 0-2 #/HPF (0-2); Squamous Epithelial Cell Urine RARE #/LPF (NONE/RARE); Urine Culture Indicated NO
[2023-09-18] MEDS: DIPHENHYDRAMINE HCL 25 MG CAPSULE 50 MG PO (00:15)
[2023-09-18 00:44] VITALS: BP 142/90; O2SAT 95
== END 2023-09-18 00:15 | disposition home or self-care (01) ==
PROVIDERS: Emergency Provider Internal Medicine; PCP Family Medicine
DX: E11.65 Type 2 diabetes mellitus with hyperglycemia (principal); Z87.440 Personal history of urinary (tract) infections; I48.0 Paroxysmal atrial fibrillation
CPT/HCPCS: 36415; 71045; 80048; 81001; 83605; 84484; 85025; 85610; 93005; 99285